=== PATIENT | male | born 1955 | race Caucasian/White ===

== ENCOUNTER 2020-02-25 13:13 | Outpatient (REF) | payer MEDICARE, MEDICAID, SELFPAY ==
[2020-02-25 14:16] LABS: MANUAL DIFF FLAG NO
[2020-02-25 14:19] LABS: Basophils Percent Auto 0.4 % (0-2); Eosinophils Absolute Auto 0.1 X10*3/uL (0.0-0.4); Eosinophils Percent Auto 1.2 % (0-4); Hematocrit 36.8 % (42-52); Hemoglobin 11.7 g/dl (14.0-18.0); Imm Gran Abs Auto 0.06 X10*3/uL (0.00-0.03); Imm Gran Pct Auto 0.9 % (0.0-0.4); Lymphocytes Absolute Auto 1.5 X10*3/uL (1.2-4.9); Lymphocytes Percent Auto 21.9 % (20-40); Mean Corpuscular HGB Conc 31.8 g/dl (31.0-36.0); Mean Corpuscular Hemoglobin 24.2 pg (27.0-33.0); Mean Platelet Volume 11.2 fL (9.4-12.4); Monocytes Absolute Auto 0.5 X10*3/uL (0.1-1.2); Monocytes Percent Auto 6.9 % (2-11); Neutrophils Absolute Auto 4.7 X10*3/uL (2.0-8.3); Neutrophils Percent Auto 68.7 % (45-73); Platelet Count 233 X10*3/uL (160-400); Red Blood Count 4.84 X10*6/uL (4.60-5.80); Red Cell Distribution Width 16.1 % (11.0-16.0); White Blood Count 6.8 X10*3/uL (4.8-10.8)
[2020-02-25 14:45] LABS: Alanine Aminotransferase 8 U/L (0-40); Albumin Level 4.6 g/dL (3.5-5.0); Alkaline Phosphatase 80 U/L (39-117); Anion Gap 15 (12-20); Aspartate Amino Transferase 14 U/L (5-37); Blood Urea Nitrogen 17 mg/dL (9-16); C Reactive Protein 3.69 mg/dL (< or = 0.50); Calcium 9.5 mg/dL (8.4-10.2); Carbon Dioxide 28 mmol/L (22-29); Chloride 104 mmol/L (96-108); Estimated Glomerular Filt Rate > 60; Glucose Random 106 mg/dL (60-115); Potassium 4.1 mmol/l (3.3-5.1); Rheumatoid Factor < 15.0 IU/mL (<15.0); Sodium 143 mmol/L (135-145); Total Protein 7.5 g/dL (6.5-8.0)
[2020-02-25 15:06] LABS: Ferritin 26 ng/mL (20-250)
[2020-02-25 16:11] LABS: Erythrocyte Sedimentation Rate 37 MM/HR (0-15)
[2020-02-26 11:17] LABS: Cyclic Citrullinated Peptide <16 UNITS
== END 2020-02-25 13:14 | disposition home or self-care (01) ==
LOC: HO.LAB 13:13
PROVIDERS: PCP Internal Medicine; Visit Provider Internal Medicine Gastroenterology
DX: K50.80 Crohn's disease of both small and large intestine without complications (principal)
CPT/HCPCS: 36415; 80053; 82728; 85025; 85652; 86140; 86200; 86431

== ENCOUNTER → 2020-03-03 08:44 | Outpatient (BNVA) | payer MEDICARE, MEDICAID, SELFPAY | PROVIDERS: PCP Internal Medicine; Referring Provider Internal Medicine; Visit Provider Internal Medicine Gastroenterology | DX: K50.80 Crohn's disease of both small and large intestine without complications (principal); M12.9 Arthropathy, unspecified; R21 Rash and other nonspecific skin eruption | CPT/HCPCS: 99213 ==

== ENCOUNTER → 2020-05-22 09:56 | Outpatient (BNVA) | payer MEDICARE, MEDICAID, SELFPAY | PROVIDERS: PCP Internal Medicine; Visit Provider Internal Medicine | DX: G47.33 Obstructive sleep apnea (adult) (pediatric) (principal); Z99.89 Dependence on other enabling machines and devices | CPT/HCPCS: 99212 ==

== ENCOUNTER → 2020-05-30 08:45 | Outpatient (BNVA) | payer MEDICARE, MEDICAID, SELFPAY | PROVIDERS: PCP Internal Medicine; Visit Provider Internal Medicine Gastroenterology | DX: K50.10 Crohn's disease of large intestine without complications (principal); M12.9 Arthropathy, unspecified | CPT/HCPCS: Q3014 ==

== ENCOUNTER → 2020-06-20 09:20 | Outpatient (REF) | payer MEDICARE, MEDICAID, SELFPAY ==
--- NOTE | 2020-06-20 09:30 | CA_ITS ---
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 The visually estimated ejection fraction is between 60-65%. - There is mildly decreased right ventricular systolic function. - The left atrium is severely dilated. - No obvious valvular pathology seen on this study. Findings Procedure Information Contrast agent, definity, is being given per protocol without apparent complications. Left Ventricle Normal left ventricular cavity size. There is moderately increased left ventricular wall thickness. The left ventricular systolic function is normal. The visually estimated ejection fraction is between 60-65%. Diastolic function is indeterminate on the basis of available data. Even with contrast use, difficult to assess wall motion. Septal wall motion abnormality in some views, possibly postoperative. Otherwise unremarkable. Right Ventricle Normal right ventricular cavity size. There is mildly decreased right ventricular systolic function. Atria The left atrium is severely dilated. The right atrium is moderately dilated. Aortic Valve The aortic valve was not well visualized. There is no aortic valve stenosis. There is no aortic valve regurgitation. Mitral Valve The mitral valve was not well visualized. The mitral valve appears normal. There is trace mitral valve regurgitation. There is no mitral valve stenosis. Pulmonic Valve The pulmonic valve was not well visualized. Tricuspid Valve There is trace tricuspid valve regurgitation. The right ventricular systolic pressure may be underestimated. The right ventricular systolic pressure is 21 mmHg. Great Vessels The aorta was not well visualized. Venous The inferior vena cava is normal in size and collapses greater than 50% with inspiration. Pericardium/Pleural There is no evidence of pericardial effusion. Prior Study Comparison No significant change compared to prior study dated: 02/02/2019. Recommendations, Care & Conclusions No obvious valvular pathology seen on this study. Measurements 2D Linear Measurements IVSd: 1.33 0.6-0.9/0.6-1.0 cm LVIDd: 5.53 3.9-5.3/4.2-5.9 cm LVIDd Index: 2.11 2.4-3.2/2.2-3.1 cm/m2 LVIDs: 3.29 2.0-3.6 cm LVPWd: 1.36 0.7-1.1 cm LA Diam: 5.00 2.7-3.8/3.0-4.0 cm LAIDs Index: 1.91 1.5-2.3 cm/m2 LV Mass: 401.75 67-162/88-224 g LV Mass Index: 153.34 43-95/49-115 g/m2 LVOT Diam: 2.50 3.0+(-)1.3 cm 2D Systolic Function EF 4C: 60.20 >55% EF 2C: 65.50 >55% EF BiP: 61.30 >55% Mitral Valve MV Pk E: 1.33 MV PK A: 0.75 MV Decel Time: 137.00 E/A: 1.80 E'Lateral: 13.40 E'Medial: 9.28 E/E' Med: 14.30 E/E' Lat: 9.90 PHT: 40.00 MVA PHT: 5.50 Decel Lamb: 9.71 Aortic Valve AoV Pk Evangelist: 1.92 AoV Mn Evangelist: 1.18 AoV VTI: 0.45 AoV Pk Grad: 15.00 Aov Mn Grad: 7.00 BALTAZAR Cont.VTI: 3.46 LVOT LVOT Pk Evangelist: 1.34 LVOT Mn Evangelist: 0.89 LVOT VTI: 0.31 LVOT Pk Grad: 7.00 LVOT Mn Grad: 4.00 LVOT Diam: 2.50 LVOT Area: 4.91 Diastolic Function MV Pk E: 1.33 MV Pk A: 0.75 E/A: 1.80 E'Medial: 9.28 E/E' Med: 14.30 E' Laterial: 13.40 E/E' Lat: 9.90 Tricuspid Valve TR Pk Evangelist: 1.79 TR Pk Grad: 13.00 RA Press: 8.00 RVSP: 21.00 Updated in Other Vendor System with Status of Final Sathya Chun MD electronically signed on 06/22/2020 2:19:42 PM with status of Final
== END ==
LOC: HO.CARD 09:20
PROVIDERS: Visit Provider Internal Medicine
DX: I50.9 Heart failure, unspecified (principal); I48.3 Typical atrial flutter; Z98.890 Other specified postprocedural states
CPT/HCPCS: 93306; Q9957

== ENCOUNTER → 2020-07-03 08:58 | Outpatient (BNVA) | payer MEDICARE, MEDICAID, SELFPAY | PROVIDERS: PCP Internal Medicine; Visit Provider Internal Medicine | DX: I50.812 Chronic right heart failure (principal); I10 Essential (primary) hypertension; G47.33 Obstructive sleep apnea (adult) (pediatric); Z99.89 Dependence on other enabling machines and devices; Z98.890 Other specified postprocedural states | CPT/HCPCS: 99212 ==

== ENCOUNTER 2020-07-24 08:27 | Outpatient (REF) | payer MEDICARE, MEDICAID, SELFPAY ==
[2020-07-24 11:06] LABS: Imm Gran Abs Auto 0.02 X10*3/uL (0.00-0.03); Imm Gran Pct Auto 0.6 % (0.0-0.4); MANUAL DIFF FLAG SCAN; Monocytes Absolute Auto 0.4 X10*3/uL (0.1-1.2); SCAN SMEAR FLAG 1
[2020-07-24 11:08] LABS: Basophils Percent Auto 0.6 % (0-2); Eosinophils Absolute Auto 0.1 X10*3/uL (0.0-0.4); Eosinophils Percent Auto 1.7 % (0-4); Hematocrit 30.4 % (42-52); Hemoglobin 9.2 g/dl (14.0-18.0); Lymphocytes Absolute Auto 1.2 X10*3/uL (1.2-4.9); Lymphocytes Percent Auto 33.3 % (20-40); Mean Corpuscular HGB Conc 30.3 g/dl (31.0-36.0); Mean Corpuscular Hemoglobin 21.6 pg (27.0-33.0); Mean Corpuscular Volume 71.4 fL (80-98); Neutrophils Absolute Auto 1.9 X10*3/uL (2.0-8.3); Neutrophils Percent Auto 52.8 % (45-73); Red Blood Count 4.26 X10*6/uL (4.60-5.80); Red Cell Distribution Width 16.3 % (11.0-16.0); White Blood Count 3.6 X10*3/uL (4.8-10.8)
[2020-07-24 11:09] LABS: PLT ABN DIST 1
[2020-07-24 11:29] LABS: Alanine Aminotransferase 10 U/L (0-40); Albumin Level 4.3 g/dL (3.5-5.0); Alkaline Phosphatase 68 U/L (39-117); Anion Gap 13 (12-20); Aspartate Amino Transferase 16 U/L (5-37); Bilirubin Total 0.6 mg/dL (0.0-1.0); Blood Urea Nitrogen 15 mg/dL (9-16); C Reactive Protein 1.19 mg/dL (< or = 0.50); Calcium 8.9 mg/dL (8.4-10.2); Carbon Dioxide 28 mmol/L (22-29); Chloride 105 mmol/L (96-108); Estimated Glomerular Filt Rate > 60; Glucose Random 121 mg/dL (60-115); Potassium 3.7 mmol/L (3.3-5.1); Sodium 142 mmol/L (135-145); Total Protein 7.3 g/dL (6.5-8.0)
[2020-07-24 11:50] LABS: Platelet Count 164 X10*3/uL (160-400)
[2020-07-24 11:54] LABS: Erythrocyte Sedimentation Rate 18 MM/HR (0-15)
[2020-07-24 12:07] LABS: SLIDE REVIEW VERIFIED
[2020-07-30 21:47] LABS: Calprotectin, Fecal 1020 mcg/g
== END 2020-07-24 08:28 | disposition home or self-care (01) ==
LOC: HO.WFDLDS 08:27
PROVIDERS: Visit Provider Internal Medicine Gastroenterology
DX: K50.10 Crohn's disease of large intestine without complications (principal); M12.9 Arthropathy, unspecified
CPT/HCPCS: 36415; 80053; 83993; 85025; 85652; 86140

== ENCOUNTER 2020-07-31 13:06 | Outpatient (REF) | payer MEDICARE, MEDICAID, SELFPAY ==
[2020-07-31 13:57] LABS: Baso%MD 0.5 %; Eos%MD 0.9 %; Hematocrit 33.1 % (42-52); Hemoglobin 9.9 g/dl (14.0-18.0); IG%MD 1.4 %; Lymph%MD 33.7 %; Mean Corpuscular HGB Conc 29.9 g/dl (31.0-36.0); Mean Corpuscular Hemoglobin 21.6 pg (27.0-33.0); Mean Corpuscular Volume 72.3 fL (80-98); Mono%MD 11.7 %; Neut%MD 51.8 %; Platelet Count 195 X10*3/uL (160-400); Red Blood Count 4.58 X10*6/uL (4.60-5.80); Red Cell Distribution Width 17.5 % (11.0-16.0); White Blood Count 4.3 X10*3/uL (4.8-10.8)
[2020-07-31 14:43] LABS: Band Neutrophils Percent 2 % (3-5); Lymphocytes Absolute Manual 1.7 X10*3/uL (0.6-4.8); Lymphocytes Percent Manual 39 % (20-40); Monocytes Absolute Manual 0.2 X10*3/uL (0.0-1.2); Monocytes Percent Manual 4 % (2-11); Neutrophils Absolute Manual 2.5 X10*3/uL (2.2-7.9); Neutrophils Percent Manual 55 % (45-73)
[2020-07-31 14:44] LABS: Hypochromasia 1+ (5-14) /OIF; Microcytosis 2+ (15-30) /OIF; RBC Morphology NOTED
[2020-07-31 14:45] LABS: Ovalocytes 1+ (5-14) /OIF; Platelet Estimate NORMAL (NORMAL); Platelet Morphology Comment NORMAL
[2020-07-31 15:06] LABS: Ferritin 16 ng/mL (20-250)
[2020-08-06 13:24] LABS: Prometheus ANSER ADA SEE SEPERATE REPORT
== END 2020-07-31 13:07 | disposition home or self-care (01) ==
LOC: HO.LAB 13:06
PROVIDERS: PCP Internal Medicine; Visit Provider Internal Medicine Gastroenterology
DX: K50.10 Crohn's disease of large intestine without complications (principal)
CPT/HCPCS: 36415; 80145; 82542; 82728; 85007; 85027

== ENCOUNTER 2020-09-03 07:39 | Outpatient (REF) | payer MEDICARE, MEDICAID, SELFPAY ==
[2020-09-03 11:48] LABS: CDIFF Ag Negative (Negative); CDIFF Internal ctrl Dots and bkg OK (V); CDiff Toxin Negative (Negative)
== END 2020-09-03 07:40 | disposition home or self-care (01) ==
LOC: HO.WFDLDS 07:39
PROVIDERS: Visit Provider Internal Medicine Gastroenterology
DX: K50.10 Crohn's disease of large intestine without complications (principal)
CPT/HCPCS: 87324; 87449

== ENCOUNTER → 2020-09-23 08:09 | Outpatient (BNVA) | payer MEDICARE, MEDICAID, SELFPAY | PROVIDERS: PCP Internal Medicine; Visit Provider Internal Medicine Gastroenterology | CPT/HCPCS: Q3014 ==

== ENCOUNTER 2020-09-24 07:31 | Outpatient (REF) | payer MEDICARE, MEDICAID, SELFPAY ==
[2020-09-24 10:52] LABS: MANUAL DIFF FLAG NO
[2020-09-24 11:05] LABS: Basophils Percent Auto 0.7 % (0-2); Eosinophils Absolute Auto 0.1 X10*3/uL (0.0-0.4); Eosinophils Percent Auto 3.2 % (0-4); Hemoglobin 10.1 g/dl (14.0-18.0); Imm Gran Abs Auto 0.08 X10*3/uL (0.00-0.03); Imm Gran Pct Auto 2.8 % (0.0-0.4); Lymphocytes Absolute Auto 1.1 X10*3/uL (1.2-4.9); Lymphocytes Percent Auto 39.2 % (20-40); Mean Corpuscular HGB Conc 30.6 g/dl (31.0-36.0); Mean Corpuscular Hemoglobin 22.4 pg (27.0-33.0); Mean Corpuscular Volume 73.3 fL (80-98); Mean Platelet Volume 11.3 fL (9.4-12.4); Monocytes Absolute Auto 0.5 X10*3/uL (0.1-1.2); Monocytes Percent Auto 16.6 % (2-11); Neutrophils Absolute Auto 1.1 X10*3/uL (2.0-8.3); Neutrophils Percent Auto 37.5 % (45-73); Platelet Count 238 X10*3/uL (160-400); Red Cell Distribution Width 18.7 % (11.0-16.0); White Blood Count 2.8 X10*3/uL (4.8-10.8)
[2020-09-24 11:23] LABS: Alanine Aminotransferase 11 U/L (0-40); Albumin Level 3.8 g/dL (3.5-5.0); Alkaline Phosphatase 66 U/L (39-117); Anion Gap 16 (12-20); Aspartate Amino Transferase 12 U/L (5-37); Bilirubin Total 0.6 mg/dL (0.0-1.0); Blood Urea Nitrogen 16 mg/dL (9-16); Carbon Dioxide 28 mmol/L (22-29); Chloride 103 mmol/L (96-108); Estimated Glomerular Filt Rate > 60; Glucose Random 104 mg/dL (60-115); Potassium 3.9 mmol/L (3.3-5.1); Sodium 143 mmol/L (135-145); Total Protein 7.2 g/dL (6.5-8.0)
[2020-09-24 11:43] LABS: Ferritin 58 ng/mL (20-250)
[2020-09-24 11:50] LABS: Erythrocyte Sedimentation Rate 69 MM/HR (0-15)
[2020-09-24 12:56] LABS: CDIFF Ag Negative (Negative); CDIFF Internal ctrl Dots and bkg OK (V); CDiff Toxin Negative (Negative)
[2020-10-02 21:36] LABS: Calprotectin, Fecal 3320 mcg/g
== END 2020-09-24 07:32 | disposition home or self-care (01) ==
LOC: HO.WFDLDS 07:31
PROVIDERS: Visit Provider Internal Medicine Gastroenterology
DX: K50.10 Crohn's disease of large intestine without complications (principal); K75.81 Nonalcoholic steatohepatitis (NASH)
CPT/HCPCS: 80053; 82728; 83993; 85025; 85652; 86140; 87324; 87449

== ENCOUNTER 2020-10-03 13:40 | Outpatient (REF) | payer MEDICARE, MEDICAID, SELFPAY ==
--- NOTE | ~2020-10-03 | CT_ITS ---
EXAMINATION: CT ENTEROGRAPHY ABDOMEN AND PELVIS WITH CONTRAST CLINICAL INFORMATION: Periumbilical pain. COMPARISON: Previous CT of the abdomen and pelvis most recent April 2019. TECHNIQUE: Study performed with oral VoLumen (1350 mL) and 480 mL of water to distend the abdomen. The patient was injected with 85 mL Omnipaque 350 intravenous contrast which was administered without adverse effect. Coronal and sagittal reformatted images were obtained at the technologist's workstation. This CT examination was performed using dose optimization techniques as appropriate, variously including the following: *Automated exposure control *Adjustment of mA and/or kV according to patient size (this includes techniques or standardized protocols for targeted exams where dose is matched to indication/reason for exam; i.e. extremities or head) *Use of iterative reconstruction technique DLP: 905 mGy-cm FINDINGS: GASTROINTESTINAL FINDINGS: Stomach: Well-distended and normal in appearance. Small intestine: Satisfactorily distended and normal in appearance. Large intestine: Well-distended and normal in appearance. No perirectal changes demonstrated. The appendix is normal. Additional findings: No abnormal enhancement of the vasa recta or significant mesenteric or retroperitoneal lymphadenopathy is seen. No abdominal abscess or fistulous tract demonstrated. ABDOMINAL AND PELVIC CT FINDINGS: Liver, gallbladder, biliary tract: Normal. Pancreas: Normal. Spleen: The spleen is slightly enlarged measuring 15 cm in length. This is similar to previous exam. There are small peripheral calcifications in the spleen that are stable. Adrenal glands and kidneys: There is a 2 x 3 cm low-attenuation left adrenal lesion that is stable and probably represents a benign adenoma. The right adrenal gland is normal. There are bilateral renal cysts measuring 1 x 2 cm in the lower pole of the right kidney and 4.8 x 6.5 cm in the lower pole of the left kidney. Ureters and bladder: Normal. Lymphovascular structures: There is shotty small bowel mesentery lymphadenopathy and fat stranding that is stable. Largest small bowel mesentery lymph node measures 1 cm. There are 2 adjacent left ventral or incisional hernias containing fat. There are postsurgical changes to the abdominal wall. Bones: There is degenerative disc disease at L5-S1. Lung bases: The lung bases are clear. The heart is enlarged. CT/CT enterography IMPRESSION: Two adjacent left ventral or incisional hernias containing fat. Stable low-attenuation left adrenal nodule probably representing a benign adenoma. Stable renal cysts. Stable shotty small bowel mesentery lymphadenopathy and fat stranding.
[2020-10-03] MEDS: iohexoL 350 MG/ML 100 ML INFUS..BTL IV (16:07)
== END 2020-10-03 13:41 | disposition home or self-care (01) ==
LOC: HO.US 13:40
PROVIDERS: Visit Provider Internal Medicine Gastroenterology
DX: R10.33 Periumbilical pain (principal); K50.10 Crohn's disease of large intestine without complications
CPT/HCPCS: 74177; Q9967

== ENCOUNTER 2020-10-06 13:31 | Outpatient (REF) | payer MEDICARE, MEDICAID, SELFPAY ==
[2020-10-09 18:11] LABS: TS Negative Control Passed; TS Panel A 0; TS Panel B 0; TS Positive Control Passed; TSpotTB Negative (SeeBelow)
== END 2020-10-06 13:32 | disposition home or self-care (01) ==
LOC: HO.MDS 13:31
PROVIDERS: PCP Internal Medicine; Visit Provider Internal Medicine Gastroenterology
DX: K50.10 Crohn's disease of large intestine without complications (principal)
CPT/HCPCS: 36415; 86481; 96365; J3380

== ENCOUNTER 2020-10-21 10:37 | Outpatient (REF) | payer MEDICARE, MEDICAID, SELFPAY | END 2020-10-21 10:38 | disposition home or self-care (01) | LOC: HO.MDS 10:37 | PROVIDERS: PCP Internal Medicine; Visit Provider Internal Medicine Gastroenterology | DX: K50.10 Crohn's disease of large intestine without complications (principal) | CPT/HCPCS: 96365; J3380 ==

== ENCOUNTER 2020-10-22 07:34 | Outpatient (REF) | payer MEDICARE, MEDICAID, SELFPAY ==
[2020-10-22 11:14] LABS: Iron 26 mcg/dL (45-160); Percent Iron Saturation 10 % (15-50); Total Iron Binding Capacity 273 mcg/dL (228-428); Unsaturated Iron Binding 247 ug/dL
[2020-10-28 23:46] LABS: Calprotectin, Fecal 5060 mcg/g
== END 2020-10-22 07:35 | disposition home or self-care (01) ==
LOC: HO.WFDLDS 07:34
PROVIDERS: PCP Internal Medicine; Visit Provider Internal Medicine Gastroenterology
DX: K50.10 Crohn's disease of large intestine without complications (principal)
CPT/HCPCS: 36415; 83540; 83993

== ENCOUNTER 2020-10-22 07:52 | Outpatient (REF) | payer MEDICARE, MEDICAID, SELFPAY | END 2020-10-22 07:53 | disposition home or self-care (01) | LOC: HO.WFDLDS 07:52 | PROVIDERS: Visit Provider Internal Medicine Gastroenterology | DX: Z13.89 Encounter for screening for other disorder (principal) ==

== ENCOUNTER → 2020-11-04 08:23 | Outpatient (BNVA) | payer MEDICARE, MEDICAID, SELFPAY | PROVIDERS: PCP Internal Medicine; Visit Provider Internal Medicine Gastroenterology | CPT/HCPCS: Q3014 ==

== ENCOUNTER 2020-11-18 08:48 | Outpatient (REF) | payer MEDICARE, MEDICAID, SELFPAY | END 2020-11-18 08:49 | disposition home or self-care (01) | LOC: HO.MDS 08:48 | PROVIDERS: PCP Internal Medicine; Visit Provider Internal Medicine Gastroenterology | DX: K50.80 Crohn's disease of both small and large intestine without complications (principal) | CPT/HCPCS: 96365; J3380 ==

== ENCOUNTER → 2020-11-27 09:03 | Outpatient (BNVA) | payer MEDICARE, MEDICAID, SELFPAY | PROVIDERS: PCP Internal Medicine; Visit Provider Internal Medicine | DX: G47.33 Obstructive sleep apnea (adult) (pediatric) (principal); E66.01 Morbid (severe) obesity due to excess calories; Z99.89 Dependence on other enabling machines and devices | CPT/HCPCS: 99212 ==

== ENCOUNTER 2020-12-10 11:08 | Outpatient (REF) | payer MEDICARE, MEDICAID, SELFPAY ==
--- NOTE | ~2020-12-10 | XR_ITS ---
EXAMINATION: XR CERVICAL SPINE CLINICAL INFORMATION: Cervicalgia. COMPARISON: None TECHNIQUE: 4 views of the cervical spine. FINDINGS: No abnormal prevertebral soft tissue swelling is seen. There is loss of the normal cervical spine lordosis. No acute fracture evident. There is disc space narrowing with prominent spurring seen at the C4-C5 level. There is some mild narrowing at the C5-C6 and C6-C7 levels of the disc spaces. XR/XR cervical spine 3V IMPRESSION: No acute cervical spine fracture. Cervical spondylosis C4 through C7 as described.
== END 2020-12-10 11:09 | disposition home or self-care (01) ==
LOC: HO.HMGCX 11:08
PROVIDERS: PCP Internal Medicine; Visit Provider Physician Assistant
DX: M54.2 Cervicalgia (principal)
CPT/HCPCS: 72040

== ENCOUNTER 2020-12-16 09:52 | Outpatient (REF) | payer MEDICARE, MEDICAID, SELFPAY ==
--- NOTE | ~2020-12-16 | XR_ITS ---
EXAMINATION: XR FOOT, BILATERAL XR HAND, BILATERAL CLINICAL INFORMATION: Crohn's disease. COMPARISON: Bilateral feet of 12/29/2007. TECHNIQUE: 3 views of each foot and 3 views of each hand. FINDINGS: Views of the left foot do not demonstrate any evidence of acute fracture or dislocation. Joint spaces are maintained. Calcaneal spurs at sites of insertion of plantar and Achilles tendons noted. There is some mild degenerative change of the tarsal and tarsometatarsal joints without joint space narrowing. There appear to be subchondral cysts or para-articular erosions about the head of the 1st proximal phalanx. This is slightly more prominent than on prior study but without large change. There are some subchondral cysts or erosions seen about the head of the 1st metatarsal which is unchanged. Vascular calcifications are present. Some soft tissue prominence over the dorsum of the foot. Views of the right foot do not demonstrate any evidence of acute fracture or dislocation. There is stable appearance base of the right 1st distal phalanx which may be related to previous trauma or possible exostosis. There is a plantar calcaneal spur. No new erosive changes identified. Views of the left hand demonstrate metallic foreign body about the radial aspect of the 4th distal phalanx. No gas within the soft tissues identified. No acute fracture or dislocation evident. Joint spaces are maintained. There is some mild spurring at the 1st carpometacarpal joint. There is an erosion about the radial aspect base of the 2nd proximal phalanx. Otherwise no significant joint space narrowing or significant degenerative spurring seen. Views of the right hand demonstrate radiopaque foreign body overlying the dorsal aspect of the distal portion of the proximal phalanx. There is mild spurring at the 1st carpometacarpal joint. There is some soft tissue swelling seen about the dorsum of the metacarpophalangeal joint as well as wrist. XR/XR hand RT min 3V IMPRESSION: Mild degenerative changes as described above. Radiopaque foreign bodies about the right and left hands.
--- NOTE | ~2020-12-16 | XR_ITS ---
EXAMINATION: XR CHEST CLINICAL INFORMATION: Crohn's disease large bowel without complication. COMPARISON: Chest radiographs 04/17/2014, CT enterography 10/03/2020. TECHNIQUE: 2 views of the chest were obtained. FINDINGS: There has been prior median sternotomy. Enlarged cardiopericardial silhouette is stable. The vascularity is normal. There is fine linear scar left lateral base similar to prior studies. There is no vascular congestion, airspace consolidation, or effusion. The costophrenic sulci are clear. The hilar and mediastinal contours are unremarkable. No visible acute bony abnormality. XR/XR chest 2V IMPRESSION: No acute intrathoracic disease.
[2020-12-16 12:16] LABS: MANUAL DIFF FLAG NO
[2020-12-16 12:22] LABS: Basophils Percent Auto 0.4 % (0-2); Eosinophils Percent Auto 0.5 % (0-4); Hematocrit 31.8 % (42-52); Hemoglobin 10.1 g/dl (14.0-18.0); Imm Gran Abs Auto 0.05 X10*3/uL (0.00-0.03); Imm Gran Pct Auto 0.6 % (0.0-0.4); Lymphocytes Absolute Auto 1.5 X10*3/uL (1.2-4.9); Lymphocytes Percent Auto 18.2 % (20-40); Mean Corpuscular HGB Conc 31.8 g/dl (31.0-36.0); Mean Corpuscular Hemoglobin 24.1 pg (27.0-33.0); Mean Corpuscular Volume 75.9 fL (80-98); Mean Platelet Volume 10.8 fL (9.4-12.4); Monocytes Absolute Auto 0.7 X10*3/uL (0.1-1.2); Monocytes Percent Auto 8.6 % (2-11); Neutrophils Percent Auto 71.7 % (45-73); Platelet Count 210 X10*3/uL (160-400); Red Blood Count 4.19 X10*6/uL (4.60-5.80); Red Cell Distribution Width 18.2 % (11.0-16.0); White Blood Count 8.4 X10*3/uL (4.8-10.8)
[2020-12-16 12:36] LABS: Alanine Aminotransferase 6 U/L (0-40); Albumin Level 4.2 g/dL (3.5-5.0); Alkaline Phosphatase 86 U/L (39-117); Anion Gap 18 (12-20); Aspartate Amino Transferase 14 U/L (5-37); Bilirubin Total 1.7 mg/dL (0.0-1.0); Blood Urea Nitrogen 14 mg/dL (9-16); C Reactive Protein 8.69 mg/dL (< or = 0.50); Calcium 9.5 mg/dL (8.4-10.2); Carbon Dioxide 25 mmol/L (22-29); Chloride 100 mmol/L (96-108); Estimated Glomerular Filt Rate > 60; Glucose Random 96 mg/dL (60-115); Potassium 3.8 mmol/L (3.3-5.1); Rheumatoid Factor < 15.0 IU/mL (<15.0); Sodium 139 mmol/L (135-145); Total Protein 7.5 g/dL (6.5-8.0)
[2020-12-16 12:59] LABS: Erythrocyte Sedimentation Rate 66 MM/HR (0-15)
[2020-12-18 23:52] LABS: Cyclic Citrullinated Peptide <16 UNITS
== END 2020-12-16 09:53 | disposition home or self-care (01) ==
LOC: HO.LAB 09:52
PROVIDERS: PCP Internal Medicine; Visit Provider Student in an Organized Health Care Education/Training Program
DX: K50.10 Crohn's disease of large intestine without complications (principal); M12.9 Arthropathy, unspecified; M79.671 Pain in right foot; M79.672 Pain in left foot; M79.641 Pain in right hand; M79.642 Pain in left hand; G47.33 Obstructive sleep apnea (adult) (pediatric); Z99.89 Dependence on other enabling machines and devices
CPT/HCPCS: 36415; 71046; 73130; 73620; 80053; 85025; 85652; 86140; 86200; 86431; 99202

== ENCOUNTER → 2020-12-25 08:05 | Outpatient (BNVA) | payer MEDICARE, MEDICAID, SELFPAY | PROVIDERS: PCP Internal Medicine; Visit Provider Internal Medicine | DX: I50.812 Chronic right heart failure (principal); I10 Essential (primary) hypertension; I48.19 Other persistent atrial fibrillation; G47.33 Obstructive sleep apnea (adult) (pediatric); Z99.89 Dependence on other enabling machines and devices; Z98.890 Other specified postprocedural states | CPT/HCPCS: 93005; 99212 ==

== ENCOUNTER → 2020-12-26 14:52 | Outpatient (REF) | payer MEDICARE, MEDICAID, SELFPAY ==
--- NOTE | 2020-12-26 14:55 | HM_ITS ---
Total monitoring time 3 days and 16 hours. Underlying rhythm is atrial fibrillation. Minimum heart rate 38/Min; maximum 116/Min; average 47/Min. About 76% of the time, rate was less than 60/Min. No significant tachycardia. No pauses or AV blocks. Frequent premature ventricular contractions at a burden of 3%. 2 morphologies. 288 couplets. No patient events. MTDD
== END ==
LOC: HO.CARD 14:52
PROVIDERS: Visit Provider Internal Medicine
DX: I48.19 Other persistent atrial fibrillation (principal)
CPT/HCPCS: 93225; 93242

== ENCOUNTER → 2020-12-30 09:16 | Outpatient (BNVA) | payer MEDICARE, MEDICAID, SELFPAY | PROVIDERS: PCP Internal Medicine; Visit Provider Student in an Organized Health Care Education/Training Program | DX: M12.9 Arthropathy, unspecified (principal); K50.10 Crohn's disease of large intestine without complications | CPT/HCPCS: 99212 ==

== ENCOUNTER 2021-01-02 07:38 | Outpatient (REF) | payer MEDICARE, MEDICAID, SELFPAY ==
[2021-01-02 11:38] LABS: MANUAL DIFF FLAG NO
[2021-01-02 11:49] LABS: Basophils Percent Auto 0.3 % (0-2); Eosinophils Percent Auto 0.7 % (0-4); Hematocrit 32.6 % (42-52); Hemoglobin 10.3 g/dl (14.0-18.0); Imm Gran Abs Auto 0.04 X10*3/uL (0.00-0.03); Imm Gran Pct Auto 0.7 % (0.0-0.4); Lymphocytes Absolute Auto 1.6 X10*3/uL (1.2-4.9); Lymphocytes Percent Auto 26.2 % (20-40); Mean Corpuscular HGB Conc 31.6 g/dl (31.0-36.0); Mean Corpuscular Hemoglobin 24.5 pg (27.0-33.0); Mean Corpuscular Volume 77.4 fL (80-98); Mean Platelet Volume 11.6 fL (9.4-12.4); Monocytes Absolute Auto 0.5 X10*3/uL (0.1-1.2); Monocytes Percent Auto 7.5 % (2-11); Neutrophils Percent Auto 64.6 % (45-73); Platelet Count 215 X10*3/uL (160-400); Red Blood Count 4.21 X10*6/uL (4.60-5.80); Red Cell Distribution Width 17.9 % (11.0-16.0); White Blood Count 6.2 X10*3/uL (4.8-10.8)
[2021-01-02 12:27] LABS: Alanine Aminotransferase 8 U/L (0-40); Albumin Level 4.2 g/dL (3.5-5.0); Alkaline Phosphatase 62 U/L (39-117); Anion Gap 15 (12-20); Aspartate Amino Transferase 13 U/L (5-37); Bilirubin Total 0.6 mg/dL (0.0-1.0); Blood Urea Nitrogen 12 mg/dL (9-16); C Reactive Protein 4.35 mg/dL (< or = 0.50); Calcium 9.5 mg/dL (8.4-10.2); Carbon Dioxide 26 mmol/L (22-29); Chloride 105 mmol/L (96-108); Estimated Glomerular Filt Rate > 60; Glucose Random 110 mg/dL (60-115); Potassium 3.9 mmol/L (3.3-5.1); Sodium 142 mmol/L (135-145); Total Protein 7.1 g/dL (6.5-8.0)
[2021-01-02 13:20] LABS: Erythrocyte Sedimentation Rate 33 MM/HR (0-15)
[2021-01-07 22:05] LABS: Calprotectin, Fecal 492 mcg/g
== END 2021-01-02 07:39 | disposition home or self-care (01) ==
LOC: HO.WFDLDS 07:38
PROVIDERS: PCP Internal Medicine; Visit Provider Internal Medicine Gastroenterology
DX: K50.10 Crohn's disease of large intestine without complications (principal); K75.81 Nonalcoholic steatohepatitis (NASH)
CPT/HCPCS: 36415; 80053; 83993; 85025; 85652; 86140

== ENCOUNTER 2021-01-13 08:51 | Outpatient (REF) | payer MEDICARE, MEDICAID, SELFPAY | END 2021-01-13 08:52 | disposition home or self-care (01) | LOC: HO.MDS 08:51 | PROVIDERS: PCP Internal Medicine; Visit Provider Internal Medicine Gastroenterology | DX: K50.80 Crohn's disease of both small and large intestine without complications (principal) | CPT/HCPCS: 96365; J3380 ==

== ENCOUNTER → 2021-01-26 09:13 | Outpatient (BNVA) | payer MEDICARE, MEDICAID, SELFPAY | PROVIDERS: PCP Internal Medicine; Visit Provider Internal Medicine Gastroenterology | CPT/HCPCS: Q3014 ==

== ENCOUNTER 2021-02-20 08:41 | Outpatient (REF) | payer MEDICARE, MEDICAID, SELFPAY ==
[2021-02-20 09:02] LABS: MANUAL DIFF FLAG NO
[2021-02-20 09:58] LABS: Hematocrit 33.3 % (42-52); Hemoglobin 10.6 g/dl (14.0-18.0); Mean Corpuscular HGB Conc 31.8 g/dl (31.0-36.0); Mean Corpuscular Hemoglobin 24.3 pg (27.0-33.0); Mean Corpuscular Volume 76.2 fL (80-98); Red Blood Count 4.37 X10*6/uL (4.60-5.80); White Blood Count 6.4 X10*3/uL (4.8-10.8)
[2021-02-20 09:59] LABS: Basophils Percent Auto 0.5 % (0-2); Eosinophils Absolute Auto 0.1 X10*3/uL (0.0-0.4); Eosinophils Percent Auto 1.2 % (0-4); Imm Gran Abs Auto 0.04 X10*3/uL (0.00-0.03); Imm Gran Pct Auto 0.6 % (0.0-0.4); Lymphocytes Absolute Auto 1.3 X10*3/uL (1.2-4.9); Lymphocytes Percent Auto 20.5 % (20-40); Mean Platelet Volume 10.9 fL (9.4-12.4); Monocytes Absolute Auto 0.4 X10*3/uL (0.1-1.2); Monocytes Percent Auto 6.7 % (2-11); Neutrophils Absolute Auto 4.5 X10*3/uL (2.0-8.3); Neutrophils Percent Auto 70.5 % (45-73); Platelet Count 249 X10*3/uL (160-400)
[2021-02-20 10:30] LABS: Alanine Aminotransferase 11 U/L (0-40); Albumin Level 4.2 g/dL (3.5-5.0); Alkaline Phosphatase 73 U/L (39-117); Anion Gap 13 (12-20); Aspartate Amino Transferase 18 U/L (5-37); Bilirubin Total 0.7 mg/dL (0.0-1.0); Blood Urea Nitrogen 17 mg/dL (9-16); C Reactive Protein 6.06 mg/dL (< or = 0.50); Calcium 9.6 mg/dL (8.4-10.2); Carbon Dioxide 27 mmol/L (22-29); Chloride 107 mmol/L (96-108); Estimated Glomerular Filt Rate > 60; Glucose Random 138 mg/dL (60-115); Iron 26 mcg/dL (45-160); Percent Iron Saturation 9 % (15-50); Potassium 3.9 mmol/L (3.3-5.1); Sodium 143 mmol/L (135-145); Total Iron Binding Capacity 296 mcg/dL (228-428); Total Protein 7.5 g/dL (6.5-8.0); Unsaturated Iron Binding 270 ug/dL
[2021-02-20 10:38] LABS: Ferritin 68 ng/mL (20-250); Vitamin D 25-OH Total 35.7 ng/mL (>30)
[2021-02-20 10:56] LABS: Folate 15.1 ng/mL (> or = 4.0); Vitamin B12 226 pg/mL (200-900)
[2021-02-25 06:21] LABS: Zinc 63 mcg/dL (60-130)
[2021-02-27 02:47] LABS: Calprotectin, Fecal 101 mcg/g
== END 2021-02-20 08:42 | disposition home or self-care (01) ==
LOC: HO.LAB 08:41
PROVIDERS: PCP Internal Medicine; Visit Provider Internal Medicine Gastroenterology
DX: M12.9 Arthropathy, unspecified (principal); K50.10 Crohn's disease of large intestine without complications; K75.81 Nonalcoholic steatohepatitis (NASH)
CPT/HCPCS: 36415; 80053; 82306; 82607; 82728; 82746; 83540; 83993; 84630; 85025; 86140

== ENCOUNTER → 2021-02-25 14:35 | Outpatient (BNVA) | payer MEDICARE, MEDICAID, SELFPAY | PROVIDERS: PCP Internal Medicine; Visit Provider Surgery ==

== ENCOUNTER 2021-03-10 08:41 | Outpatient (REF) | payer MEDICARE, MEDICAID, SELFPAY | END 2021-03-10 08:42 | disposition home or self-care (01) | LOC: HO.MDS 08:41 | PROVIDERS: PCP Internal Medicine; Visit Provider Internal Medicine Gastroenterology | DX: K50.10 Crohn's disease of large intestine without complications (principal) | CPT/HCPCS: 96365; J3380 ==

== ENCOUNTER → 2021-03-11 15:38 | Outpatient (BNVA) | payer MEDICARE, MEDICAID, SELFPAY | PROVIDERS: PCP Internal Medicine; Visit Provider Surgery | DX: L72.0 Epidermal cyst (principal); I11.0 Hypertensive heart disease with heart failure; I50.812 Chronic right heart failure; E66.01 Morbid (severe) obesity due to excess calories; G47.33 Obstructive sleep apnea (adult) (pediatric); Z68.41 Body mass index [BMI] 40.0-44.9, adult; Z87.891 Personal history of nicotine dependence; Z98.890 Other specified postprocedural states; Z99.89 Dependence on other enabling machines and devices; Z79.52 Long term (current) use of systemic steroids; Z79.899 Other long term (current) drug therapy | CPT/HCPCS: 99202 ==

== ENCOUNTER 2021-03-16 13:51 | Outpatient (REF) | payer MEDICARE, MEDICAID, SELFPAY ==
--- NOTE | ~2021-03-16 | XR_ITS ---
EXAMINATION: XR LUMBOSACRAL SPINE CLINICAL INFORMATION: Low back pain. COMPARISON: CT abdomen study of 04/27/2019. TECHNIQUE: 3 views of the lumbosacral spine. FINDINGS: There are 5 non-rib bearing lumbar vertebrae. There is severe narrowing of the L5-S1 disc space with marginal sclerosis and facet arthropathy. Pedicles appear intact. No acute fracture, spondylolisthesis, or spondylolysis is appreciated. No evidence of fusion or widening of the sacroiliac joints. There is anterior bridging of the T11 and T12 vertebral bodies. XR/XR lumbar spine 2-3V IMPRESSION: Lumbar spondylosis L5-S1. No acute fracture, spondylolisthesis, or spondylolysis identified.
== END 2021-03-16 13:52 | disposition home or self-care (01) ==
LOC: HO.XRAY 13:51
PROVIDERS: PCP Internal Medicine; Visit Provider Physician Assistant
DX: M54.59 Other low back pain (principal)
CPT/HCPCS: 72100

== ENCOUNTER 2021-03-27 13:01 | Outpatient (REF) | payer MEDICARE, MEDICAID, SELFPAY ==
[2021-03-27 12:51] VITALS: BMI 46.5
[2021-03-27 12:54] VITALS: BP 164/44; PULSE 79; RESP 16; TEMP 37.7; O2SAT 97
[2021-03-27 13:37] VITALS: BP 152/58; PULSE 70; RESP 18; O2SAT 98
--- NOTE | 2021-03-27 13:37 | W.PM.OPN ---
Operative Note Operative Note Date of Service: 03/27/21 Narrative: Preop diagnosis: Epidermal cyst, posterior neck Postop diagnosis: Epidermal cyst, posterior neck Procedure: Excision of epidermal cyst, posterior neck under local anesthesia Surgeon: Cesar Hatch MD Patient is a 65-year-old male with a cystic induration of the posterior neck measuring about 1.5 cm. He understood the technique of excision under local anesthesia. He was aware of the risks, benefits, and alternatives Was brought to the minor procedure room. He was placed in the sitting position with the neck if flexed forward to expose the area of the cyst. The area of the cyst was prepped and draped in the usual sterile fashion. Lidocaine 1% was used for local anesthesia. I made an elliptical incision around the cystic induration using a blade 15 and this was carried down through the full-thickness of the skin and subcutaneous fat to excise this entire cystic induration. This was dissected posteriorly at the with delivered. I closed the incision with full-thickness nylon 3-0 interrupted sutures. Dressings were applied The patient tolerated procedure well. There were no complication noted. He was given wound care instructions and will be seen in the office for removal sutures.
== END 2021-03-27 13:02 | disposition home or self-care (01) ==
LOC: HO.MS 13:01
PROVIDERS: PCP Internal Medicine; Visit Provider Surgery
PROC: (CPT 11422; principal; 2021-03-27 13:00)
DX: L72.0 Epidermal cyst (principal); I11.0 Hypertensive heart disease with heart failure; I50.89 Other heart failure; Z79.01 Long term (current) use of anticoagulants; E66.01 Morbid (severe) obesity due to excess calories; Z68.41 Body mass index [BMI] 40.0-44.9, adult; Z79.899 Other long term (current) drug therapy; Z87.891 Personal history of nicotine dependence
CPT/HCPCS: 11422; 88304

== ENCOUNTER → 2021-04-01 08:53 | Outpatient (BNVA) | payer MEDICARE, MEDICAID, SELFPAY | PROVIDERS: PCP Internal Medicine; Visit Provider Internal Medicine Gastroenterology ==

== ENCOUNTER → 2021-04-08 12:28 | Outpatient (BNVA) | payer MEDICARE, MEDICAID, SELFPAY | PROVIDERS: PCP Internal Medicine; Visit Provider Surgery | DX: Z48.817 Encounter for surgical aftercare following surgery on the skin and subcutaneous tissue (principal); Z87.2 Personal history of diseases of the skin and subcutaneous tissue | CPT/HCPCS: 99212 ==

== ENCOUNTER → 2021-05-01 08:28 | Outpatient (BNVA) | payer MEDICARE, MEDICAID, SELFPAY | PROVIDERS: PCP Internal Medicine; Visit Provider Internal Medicine Gastroenterology | DX: M12.9 Arthropathy, unspecified (principal); K50.10 Crohn's disease of large intestine without complications | CPT/HCPCS: Q3014 ==

== ENCOUNTER 2021-05-04 10:34 | Outpatient (REF) | payer MEDICARE, MEDICAID, SELFPAY ==
[2021-05-04 14:01] LABS: MANUAL DIFF FLAG NO
[2021-05-04 14:07] LABS: Basophils Percent Auto 0.7 % (0-2); Eosinophils Percent Auto 0.9 % (0-4); Hematocrit 30.6 % (42.0-52.0); Hemoglobin 9.9 g/dl (14.0-18.0); Imm Gran Abs Auto 0.03 X10*3/uL (0.00-0.03); Imm Gran Pct Auto 0.7 % (0.0-0.4); Lymphocytes Absolute Auto 0.9 X10*3/uL (1.2-4.9); Lymphocytes Percent Auto 19.9 % (20-40); Mean Corpuscular HGB Conc 32.4 g/dl (31.0-36.0); Mean Corpuscular Hemoglobin 25.9 pg (27.0-33.0); Mean Corpuscular Volume 80.1 fL (80.0-98.0); Monocytes Absolute Auto 0.5 X10*3/uL (0.1-1.2); Monocytes Percent Auto 10.6 % (2-11); Neutrophils Absolute Auto 2.9 x10*3/uL (2.0-8.3); Neutrophils Percent Auto 67.2 % (45-73); Platelet Count 193 X10*3/uL (160-400); Red Blood Count 3.82 X10*6/uL (4.60-5.80); Red Cell Distribution Width 19.9 % (11.0-16.0); White Blood Count 4.3 X10*3/uL (4.8-10.8)
[2021-05-04 14:55] LABS: Alanine Aminotransferase 9 U/L (0-40); Albumin Level 4.2 g/dL (3.5-5.0); Alkaline Phosphatase 73 U/L (39-117); Anion Gap 13 (12-20); Aspartate Amino Transferase 15 U/L (5-37); Bilirubin Total 0.9 mg/dL (0.0-1.0); Blood Urea Nitrogen 18 mg/dL (9-16); Calcium 9.1 mg/dL (8.4-10.2); Carbon Dioxide 27 mmol/L (22-29); Chloride 105 mmol/L (96-108); Estimated Glomerular Filt Rate > 60; Glucose Random 140 mg/dL (60-115); Potassium 3.7 mmol/L (3.3-5.1); Sodium 141 mmol/L (135-145); Total Protein 6.8 g/dL (6.5-8.0)
[2021-05-04 15:00] LABS: Ferritin 60 ng/mL (20-250)
== END 2021-05-04 10:35 | disposition home or self-care (01) ==
LOC: HO.WFDLDS 10:34
PROVIDERS: Visit Provider Internal Medicine Gastroenterology
DX: K50.10 Crohn's disease of large intestine without complications (principal); M12.9 Arthropathy, unspecified; K75.81 Nonalcoholic steatohepatitis (NASH)
CPT/HCPCS: 36415; 80053; 82728; 85025; 86140

== ENCOUNTER 2021-05-05 09:10 | Outpatient (REF) | payer MEDICARE, MEDICAID, SELFPAY | END 2021-05-05 09:11 | disposition home or self-care (01) | LOC: HO.MDS 09:10 | PROVIDERS: PCP Internal Medicine; Visit Provider Internal Medicine Gastroenterology | DX: K50.10 Crohn's disease of large intestine without complications (principal) | CPT/HCPCS: 96365; J3380 ==

== ENCOUNTER → 2021-06-01 09:24 | Outpatient (BNVA) | payer MEDICARE, MEDICAID, SELFPAY | PROVIDERS: PCP Internal Medicine; Visit Provider Internal Medicine | DX: G47.33 Obstructive sleep apnea (adult) (pediatric) (principal); E66.01 Morbid (severe) obesity due to excess calories; Z99.89 Dependence on other enabling machines and devices; Z68.42 Body mass index [BMI] 45.0-49.9, adult | CPT/HCPCS: Q3014 ==

== ENCOUNTER 2021-06-04 11:00 | Outpatient (RCR) | payer MEDICARE, MEDICAID, SELFPAY | END 2021-11-27 13:29 | disposition home or self-care (01) | LOC: HO.PTWFD 11:00 | PROVIDERS: PCP Internal Medicine; Visit Provider Physician Assistant | DX: M54.50 Low back pain, unspecified (principal); M54.2 Cervicalgia | CPT/HCPCS: 97014; 97035; 97110; 97140; 97161; 97163; 97530; 97535 ==

== ENCOUNTER 2021-06-30 08:50 | Outpatient (REF) | payer MEDICARE, MEDICAID, SELFPAY | END 2021-06-30 08:51 | disposition home or self-care (01) | LOC: HO.MDS 08:50 | PROVIDERS: Visit Provider Internal Medicine Gastroenterology | DX: K50.10 Crohn's disease of large intestine without complications (principal) | CPT/HCPCS: 96365; J3380 ==

== ENCOUNTER → 2021-07-14 09:01 | Outpatient (BNVA) | payer MEDICARE, MEDICAID, SELFPAY | PROVIDERS: PCP Internal Medicine; Visit Provider Internal Medicine | DX: I48.19 Other persistent atrial fibrillation (principal); I11.0 Hypertensive heart disease with heart failure; I50.812 Chronic right heart failure; G47.33 Obstructive sleep apnea (adult) (pediatric); Z79.01 Long term (current) use of anticoagulants; Z87.798 Personal history of other (corrected) congenital malformations; Z99.89 Dependence on other enabling machines and devices | CPT/HCPCS: 99212 ==

== ENCOUNTER 2021-07-23 07:33 | Outpatient (REF) | payer MEDICARE, MEDICAID, SELFPAY ==
[2021-07-23 12:08] LABS: Anion Gap 14 (12-20); Blood Urea Nitrogen 20 mg/dL (9-16); Carbon Dioxide 27 mmol/L (22-29); Chloride 104 mmol/L (96-108); Estimated Glomerular Filt Rate > 60; Glucose Random 115 mg/dL (60-115); Potassium 4.2 mmol/L (3.3-5.1); Sodium 141 mmol/L (135-145)
== END 2021-07-23 07:34 | disposition home or self-care (01) ==
LOC: HO.WFDLDS 07:33
PROVIDERS: PCP Internal Medicine; Visit Provider Internal Medicine
DX: I10 Essential (primary) hypertension (principal)
CPT/HCPCS: 36415; 80048

== ENCOUNTER → 2021-07-31 09:39 | Outpatient (BNVA) | payer MEDICARE, MEDICAID, SELFPAY | PROVIDERS: PCP Internal Medicine; Visit Provider Internal Medicine Gastroenterology | DX: K50.10 Crohn's disease of large intestine without complications (principal); M12.9 Arthropathy, unspecified | CPT/HCPCS: 99212 ==

== ENCOUNTER 2021-08-17 10:34 | Outpatient (REF) | payer MEDICARE, MEDICAID, SELFPAY ==
--- NOTE | 2021-08-17 12:34 | MHC.AU.MED ---
Medical Clearance for Hearing Instrumentation Date: 08/17/21 Patient Name: Hector Colon Date of : 1955 Referring Provider: Garry Graves MD We have seen your patient on 08/17/21 and have determined that they are a candidate for amplification (See accompanying report). Specifically, they would benefit from: Hearing aid use in both ears There is a statute that addresses Medical Evaluation Requirements prior to fitting a patient with a hearing aid. According to [place] statute [facility] CMR:6.03(1), (a) General. Except as provided in 265 CMR 6.03(1)(b), a clinical advisor shall not sell a hearing aid unless the prospective user has presented to the clinical advisor a written statement signed by a licensed physician that states that the patient's hearing loss has been medically evaluated and the patient may be considered a candidate for a hearing aid. The medical evaluation must have taken place within the preceding six months. Please note: Due to the [place] Statute referenced above, we cannot accept a signature other than that of a licensed physician. BUSINESS DIRECTOR and PA signatures cannot be accepted. I am in agreement with the above recommendation. There is no medical contraindication for hearing instrumentation. Physician Signature Date Physician Name (Printed)
--- NOTE | 2021-08-17 12:35 | MHC.AU.ANO ---
Adult Audiological Evaluation Date of Visit: 08/17/21 Reason for Appointment: Patient has been experiencing gradually increasing hearing difficulty. He reports difficulty hearing his at home, as well as difficulty hearing in the television and hearing in groups/noise. 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 He has been told from hearing screenings in the past that he has trouble hearing high frequencies. 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 History: No Medical History: Medical History: AFib, Hypertension, Crohn's Disease, Arthritis Medication List: Furosemide (can potentially be ototoxic), Amlodipine Besylate, Eliquis, Pantoprazole, Methotrexate, Folic Acid, Vedolizumab, Losartan Vitamin D3, Turmeric, Iron, Centrum Silver Otoscopy: Right Ear: Unremarkable Left Ear: Unremarkable Tympanometry: Tympanometry performed due to: To assess integrity of the middle ear system Right Ear: Normal Middle Ear System (Type A) Left Ear: Normal Middle Ear System (Type A) Hearing Evaluation: Transducer(s) Used: Insert Earphones Method: Conventional Audiometry Stimuli Used: Pure Tones Right Ear: Description of Hearing: Mild to severe sensorineural hearing loss Left Ear: Description of Hearing: Mild to severe sensorineural hearing loss Speech Recognition Threshold (SRT): Method Used: Recorded Lists Stimuli Used: Spondee Words Right Ear: 40 dBHL Left Ear: 40 dBHL Word Discrimination: Method: Recorded Lists Word Lists Used: W-22 Right Ear: 80% at 75 dBHL Left Ear: 72% at 70 dBHL Most Comfortable Level (MCL): Right Ear: 75 dBHL Left Ear: 70 dBHL Recommendations: Audiological re-evaluation in one year. Trial with amplification is recommended. Medical clearance from a physician is required before fitting. See Hearing Aid Evaluation report for more information. Diagnosis: Primary Diagnosis: H90.3 Bilateral Sensorineural Hearing Loss Signature: Provider: César Lorenz, DORIS-A
--- NOTE | 2021-08-17 12:36 | MHC.AU.HAS ---
Hearing Aid Evaluation Date of Visit: 08/17/21 Historical Information: Description of Hearing: Mild to severe sensorineural hearing loss bilaterally Summary: Patient was seen for audiological evaluation (see separate report for details). Patient is interested in amplification. Options were discussed. Patient would like something easy to manipulate, as he has arthritis. He also reports he is not big into technology, and does not see himself using Bluetooth in the near future. Hearing Aid Prescription: Based on the individual?s shared listening needs, communication environments, dexterity, desire for connectivity, and personal preferences, the following prescription for amplification has been made: Right ear: Upper Cutter Out: Phonak Model: Audeo P70-R Battery Size: Rechargeable Color: Champagne Interior Specialist: 1M Left ear: Upper Cutter Out: Phonak Model: Audeo P70-R Battery Size: Rechargeable Color: Champagne Interior Specialist: 1M Action Taken/Action Needed: Medical Clearance to be requested from PCP/ENT Hearing Instrument Fitting to be scheduled when materials arrive Primary Diagnosis: H90.3 Bilateral Sensorineural Hearing Loss Signature: Provider: César Lorenz, CCC-A
== END 2021-08-17 10:35 | disposition home or self-care (01) ==
LOC: HO.SH 10:34
PROVIDERS: Visit Provider Internal Medicine
DX: H90.3 Sensorineural hearing loss, bilateral (principal)
CPT/HCPCS: 92557; 92567; 92591

== ENCOUNTER 2021-08-20 08:00 | Outpatient (REF) | payer MEDICARE, MEDICAID, SELFPAY ==
[2021-08-20 11:16] LABS: MANUAL DIFF FLAG NO
[2021-08-20 11:54] LABS: Basophils Percent Auto 0.6 % (0-2); Eosinophils Absolute Auto 0.1 X10*3/uL (0.0-0.4); Eosinophils Percent Auto 1.2 % (0-4); Hematocrit 36.8 % (42.0-52.0); Hemoglobin 11.8 g/dl (14.0-18.0); Imm Gran Abs Auto 0.02 X10*3/uL (0.00-0.03); Imm Gran Pct Auto 0.4 % (0.0-0.4); Lymphocytes Absolute Auto 1.4 X10*3/uL (1.2-4.9); Lymphocytes Percent Auto 26.8 % (20-40); Mean Corpuscular HGB Conc 32.1 g/dl (31.0-36.0); Mean Corpuscular Hemoglobin 26.9 pg (27.0-33.0); Mean Corpuscular Volume 83.8 fL (80.0-98.0); Mean Platelet Volume 11.6 fL (9.4-12.4); Monocytes Absolute Auto 0.4 X10*3/uL (0.1-1.2); Monocytes Percent Auto 8.6 % (2-11); Neutrophils Absolute Auto 3.2 x10*3/uL (2.0-8.3); Neutrophils Percent Auto 62.4 % (45-73); Platelet Count 168 X10*3/uL (160-400); Red Blood Count 4.39 X10*6/uL (4.60-5.80); Red Cell Distribution Width 17.8 % (11.0-16.0); White Blood Count 5.1 X10*3/uL (4.8-10.8)
[2021-08-20 11:57] LABS: Alanine Aminotransferase 10 U/L (0-40); Albumin Level 4.6 g/dL (3.5-5.0); Alkaline Phosphatase 79 U/L (39-117); Anion Gap 15 (12-20); Aspartate Amino Transferase 18 U/L (5-37); Bilirubin Total 1.1 mg/dL (0.0-1.0); Blood Urea Nitrogen 21 mg/dL (9-16); C Reactive Protein 1.53 mg/dL (< or = 0.50); Calcium 9.6 mg/dL (8.4-10.2); Carbon Dioxide 24 mmol/L (22-29); Chloride 107 mmol/L (96-108); Estimated Glomerular Filt Rate > 60; Glucose Random 102 mg/dL (60-115); Iron 58 mcg/dL (45-160); Percent Iron Saturation 17 % (15-50); Potassium 4.3 mmol/L (3.3-5.1); Sodium 142 mmol/L (135-145); Total Iron Binding Capacity 332 mcg/dL (228-428); Total Protein 7.4 g/dL (6.5-8.0); Unsaturated Iron Binding 274 ug/dL
[2021-08-20 12:32] LABS: Ferritin 61 ng/mL (20-250)
== END 2021-08-20 08:01 | disposition home or self-care (01) ==
LOC: HO.WFDLDS 08:00
PROVIDERS: Visit Provider Internal Medicine Gastroenterology
DX: K75.81 Nonalcoholic steatohepatitis (NASH) (principal); M12.9 Arthropathy, unspecified; K50.10 Crohn's disease of large intestine without complications
CPT/HCPCS: 36415; 80053; 82728; 83540; 85025; 86140

== ENCOUNTER 2021-08-25 09:16 | Outpatient (REF) | payer MEDICARE, MEDICAID, SELFPAY ==
[2021-08-27 14:52] LABS: TS Negative Control Passed; TS Panel A 0; TS Panel B 0; TS Positive Control Passed; TSpotTB Negative (Negative)
== END 2021-08-25 09:17 | disposition home or self-care (01) ==
LOC: HO.MDS 09:16
PROVIDERS: Visit Provider Internal Medicine Gastroenterology
DX: K50.10 Crohn's disease of large intestine without complications (principal)
CPT/HCPCS: 36415; 86481; 96365; J3380

== ENCOUNTER 2021-09-04 13:07 | Outpatient (REF) | payer MEDICARE, MEDICAID, SELFPAY ==
--- NOTE | 2021-09-04 14:26 | MHC.AU.HFA ---
Hearing Instrument Fitting- Adult- Binaural Date of Visit: 09/04/21 Hearing Instruments Dispensed: Right Ear: Entertainment Director: Phonak Model: Audeo P70-R Serial Number: [id number] Repair Warranty: 11/16/2024 Loss and Damage Warranty: 11/16/2024 Battery Size: Rechargeable Color: Champagne Planning Supervisor: 1M Type of Dome: Small Power Dome Type of Wax Guard: CeruShield Left Ear: Entertainment Director: Phonak Model: Audeo P70-R Serial Number: [id number] Repair Warranty: 11/16/2024 Loss and Damage Warranty: 11/16/2024 Battery Size: Rechargeable Color: Champagne Planning Supervisor: 1M Type of Dome: Small Power Dome Type of Wax Guard: CeruShield Summary of Fitting: Feedback compensation and benefits manager run. Verifit performed and levels adjusted to better reach targets. Patient felt 100% was too loud. Lowered to 90%. Increased occlusion compensation to medium, as patient felt his voice was echoing. Lowered overall gain 2 additional steps. Patient was pleased with the sound of the instruments. Hearing aid care and maintenance were discussed and practiced. Patient does not have a smartphone and does not anticipate getting one in the near future. Recommendations: Recommendations: A hearing instrument follow-up was scheduled. Diagnosis Code(s): Primary Diagnosis: H90.3 Bilateral Sensorineural Hearing Loss Signature: Provider: César Lorenz, [facility]
== END 2021-09-04 13:08 | disposition home or self-care (01) ==
LOC: HO.HAP 13:07
PROVIDERS: Visit Provider Internal Medicine
DX: Z46.1 Encounter for fitting and adjustment of hearing aid (principal); H90.3 Sensorineural hearing loss, bilateral
CPT/HCPCS: V5011; V5020; V5160; V5261

== ENCOUNTER 2021-09-25 11:02 | Outpatient (REF) | payer MEDICARE, MEDICAID, SELFPAY | END 2021-09-25 11:03 | disposition home or self-care (01) | LOC: HO.HAP 11:02 | PROVIDERS: Visit Provider Internal Medicine | DX: Z13.89 Encounter for screening for other disorder (principal) ==

== ENCOUNTER 2021-10-20 08:46 | Outpatient (REF) | payer MEDICARE, MEDICAID, SELFPAY | END 2021-10-20 08:47 | disposition home or self-care (01) | LOC: HO.MDS 08:46 | PROVIDERS: Visit Provider Internal Medicine Gastroenterology | DX: K50.10 Crohn's disease of large intestine without complications (principal) | CPT/HCPCS: 96365; J3380 ==

== ENCOUNTER → 2021-11-27 09:44 | Outpatient (BNVA) | payer MEDICARE, MEDICAID, SELFPAY | PROVIDERS: PCP Internal Medicine; Visit Provider Internal Medicine Gastroenterology | DX: K50.10 Crohn's disease of large intestine without complications (principal); M12.9 Arthropathy, unspecified; K75.81 Nonalcoholic steatohepatitis (NASH) | CPT/HCPCS: 99212 ==

== ENCOUNTER 2021-11-30 07:56 | Outpatient (REF) | payer MEDICARE, MEDICAID, SELFPAY ==
[2021-11-30 11:11] LABS: MANUAL DIFF FLAG NO
[2021-11-30 11:23] LABS: Basophils Percent Auto 0.6 % (0-2); Eosinophils Absolute Auto 0.1 X10*3/uL (0.0-0.4); Eosinophils Percent Auto 1.8 % (0-4); Hematocrit 35.3 % (42.0-52.0); Hemoglobin 11.8 g/dl (14.0-18.0); Imm Gran Abs Auto 0.06 X10*3/uL (0.00-0.03); Imm Gran Pct Auto 1.2 % (0.0-0.4); Lymphocytes Absolute Auto 1.2 X10*3/uL (1.2-4.9); Lymphocytes Percent Auto 24.6 % (20-40); Mean Corpuscular HGB Conc 33.4 g/dl (31.0-36.0); Mean Corpuscular Hemoglobin 28.9 pg (27.0-33.0); Mean Corpuscular Volume 86.5 fL (80.0-98.0); Mean Platelet Volume 12.2 fL (9.4-12.4); Monocytes Absolute Auto 0.5 X10*3/uL (0.1-1.2); Monocytes Percent Auto 10.8 % (2-11); Neutrophils Absolute Auto 3.1 x10*3/uL (2.0-8.3); Platelet Count 188 X10*3/uL (160-400); Red Blood Count 4.08 X10*6/uL (4.60-5.80); Red Cell Distribution Width 16.2 % (11.0-16.0)
[2021-11-30 11:57] LABS: Alanine Aminotransferase 13 U/L (0-40); Albumin Level 4.8 g/dL (3.5-5.0); Alkaline Phosphatase 79 U/L (39-117); Anion Gap 14 (12-20); Aspartate Amino Transferase 18 U/L (5-37); Bilirubin Total 0.9 mg/dL (0.0-1.0); Blood Urea Nitrogen 18 mg/dL (9-16); C Reactive Protein 1.95 mg/dL (< or = 0.50); Calcium 9.5 mg/dL (8.4-10.2); Carbon Dioxide 25 mmol/L (22-29); Chloride 107 mmol/L (96-108); Estimated Glomerular Filt Rate > 60; Glucose Random 106 mg/dL (60-115); Potassium 4.4 mmol/L (3.3-5.1); Sodium 142 mmol/L (135-145); Total Protein 7.5 g/dL (6.5-8.0)
[2021-11-30 12:08] LABS: Ferritin 59 ng/mL (20-250)
[2021-11-30 12:30] LABS: Folate 14.9 ng/mL (> or = 4.0); Vitamin B12 312 pg/mL (200-900)
[2021-12-07 18:27] LABS: Calprotectin, Fecal 196 mcg/g
== END 2021-11-30 07:57 | disposition home or self-care (01) ==
LOC: HO.WFDLDS 07:56
PROVIDERS: Visit Provider Internal Medicine Gastroenterology
DX: K50.10 Crohn's disease of large intestine without complications (principal); M12.9 Arthropathy, unspecified; K75.81 Nonalcoholic steatohepatitis (NASH)
CPT/HCPCS: 36415; 80053; 82607; 82728; 82746; 83993; 85025; 86140

== ENCOUNTER → 2021-12-10 09:55 | Outpatient (BNVA) | payer MEDICARE, MEDICAID, SELFPAY | PROVIDERS: PCP Internal Medicine; Visit Provider Internal Medicine | DX: G47.33 Obstructive sleep apnea (adult) (pediatric) (principal); E66.01 Morbid (severe) obesity due to excess calories; Z99.89 Dependence on other enabling machines and devices; Z68.42 Body mass index [BMI] 45.0-49.9, adult | CPT/HCPCS: 99212 ==

== ENCOUNTER 2021-12-15 08:57 | Outpatient (REF) | payer MEDICARE, MEDICAID, SELFPAY ==
[2021-12-18 15:56] LABS: TS Negative Control Passed; TS Panel A 1; TS Panel B 2; TS Positive Control Passed; TSpotTB Negative (Negative)
== END 2021-12-15 08:58 | disposition home or self-care (01) ==
LOC: HO.MDS 08:57
PROVIDERS: Visit Provider Internal Medicine Gastroenterology
DX: K50.80 Crohn's disease of both small and large intestine without complications (principal)
CPT/HCPCS: 36415; 86481; 96365; J3380

== ENCOUNTER → 2022-01-21 08:41 | Outpatient (BNVA) | payer MEDICARE, MEDICAID, SELFPAY | PROVIDERS: PCP Internal Medicine; Visit Provider Internal Medicine | DX: I11.0 Hypertensive heart disease with heart failure (principal); I50.812 Chronic right heart failure; I48.19 Other persistent atrial fibrillation; G47.33 Obstructive sleep apnea (adult) (pediatric); Z98.890 Other specified postprocedural states; Z99.89 Dependence on other enabling machines and devices | CPT/HCPCS: 93005; 99212 ==

== ENCOUNTER 2022-02-09 08:38 | Outpatient (REF) | payer MEDICARE, MEDICAID, SELFPAY | END 2022-02-09 08:39 | disposition home or self-care (01) | LOC: HO.MDS 08:38 | PROVIDERS: Visit Provider Internal Medicine Gastroenterology | DX: K50.80 Crohn's disease of both small and large intestine without complications (principal) | CPT/HCPCS: 96365; J3380 ==

== ENCOUNTER 2022-02-18 07:37 | Outpatient (REF) | payer MEDICARE, MEDICAID, SELFPAY ==
[2022-02-18 10:53] LABS: Anion Gap 16 (12-20); Blood Urea Nitrogen 25 mg/dL (9-16); Calcium 9.6 mg/dL (8.4-10.2); Carbon Dioxide 26 mmol/L (22-29); Chloride 104 mmol/L (96-108); Estimated Glomerular Filt Rate > 60; Glucose Random 100 mg/dL (60-115); Potassium 4.4 mmol/L (3.3-5.1); Sodium 142 mmol/L (135-145)
== END 2022-02-18 07:38 | disposition home or self-care (01) ==
LOC: HO.WFDLDS 07:37
PROVIDERS: Visit Provider Internal Medicine
DX: I10 Essential (primary) hypertension (principal)
CPT/HCPCS: 36415; 80048

== ENCOUNTER → 2022-03-29 09:30 | Outpatient (BNVA) | payer MEDICARE, MEDICAID, SELFPAY | PROVIDERS: PCP Internal Medicine; Visit Provider Internal Medicine Gastroenterology | DX: K50.80 Crohn's disease of both small and large intestine without complications (principal); M07.60 Enteropathic arthropathies, unspecified site; D50.0 Iron deficiency anemia secondary to blood loss (chronic); Z79.01 Long term (current) use of anticoagulants | CPT/HCPCS: 99212 ==

== ENCOUNTER 2022-04-06 08:44 | Outpatient (REF) | payer MEDICARE, MEDICAID, SELFPAY | END 2022-04-06 08:45 | disposition home or self-care (01) | LOC: HO.MDS 08:44 | PROVIDERS: Visit Provider Internal Medicine Gastroenterology | DX: K50.80 Crohn's disease of both small and large intestine without complications (principal) | CPT/HCPCS: 96365; J3380 ==

== ENCOUNTER 2022-06-01 08:35 | Outpatient (REF) | payer MEDICARE, MEDICAID, SELFPAY ==
[2022-06-03 13:39] LABS: TS Negative Control Passed; TS Panel A 4; TS Panel B 0; TS Positive Control Passed; TSpotTB Negative (Negative)
== END 2022-06-01 08:36 | disposition home or self-care (01) ==
LOC: HO.MDS 08:35
PROVIDERS: Visit Provider Internal Medicine Gastroenterology
DX: K50.80 Crohn's disease of both small and large intestine without complications (principal)
CPT/HCPCS: 36415; 86481; 96365; J3380

== ENCOUNTER → 2022-06-07 10:31 | Outpatient (BNVA) | payer MEDICARE, MEDICAID, SELFPAY | PROVIDERS: PCP Internal Medicine; Visit Provider Internal Medicine | DX: G47.33 Obstructive sleep apnea (adult) (pediatric) (principal); E66.01 Morbid (severe) obesity due to excess calories; Z99.89 Dependence on other enabling machines and devices; Z68.42 Body mass index [BMI] 45.0-49.9, adult | CPT/HCPCS: 99212 ==

== ENCOUNTER 2022-07-27 08:35 | Outpatient (REF) | payer MEDICARE, MEDICAID, SELFPAY | END 2022-07-27 08:36 | disposition home or self-care (01) | LOC: HO.MDS 08:35 | PROVIDERS: Visit Provider Internal Medicine Gastroenterology | DX: K50.10 Crohn's disease of large intestine without complications (principal) | CPT/HCPCS: 96365; J1756; J3380 ==

== ENCOUNTER → 2022-08-27 09:28 | Outpatient (BNVA) | payer MEDICARE, MEDICAID, SELFPAY | PROVIDERS: PCP Internal Medicine; Visit Provider Internal Medicine Gastroenterology | DX: K50.10 Crohn's disease of large intestine without complications (principal); M07.60 Enteropathic arthropathies, unspecified site; D63.8 Anemia in other chronic diseases classified elsewhere; K75.81 Nonalcoholic steatohepatitis (NASH); E66.01 Morbid (severe) obesity due to excess calories; Z68.42 Body mass index [BMI] 45.0-49.9, adult; Z79.631 Long term (current) use of antimetabolite agent; Z79.01 Long term (current) use of anticoagulants | CPT/HCPCS: 99212 ==

== ENCOUNTER 2022-09-07 08:43 | Outpatient (REF) | payer MEDICARE, MEDICAID, SELFPAY ==
[2022-09-07 11:20] LABS: MANUAL DIFF FLAG NO
[2022-09-07 11:57] LABS: Basophils Percent Auto 0.8 % (0-2); Eosinophils Absolute Auto 0.1 X10*3/uL (0.0-0.4); Eosinophils Percent Auto 1.5 % (0-4); Hematocrit 33.1 % (42.0-52.0); Hemoglobin 11.1 g/dl (14.0-18.0); Imm Gran Abs Auto 0.06 X10*3/uL (0.00-0.03); Imm Gran Pct Auto 1.5 % (0.0-0.4); Lymphocytes Absolute Auto 0.8 X10*3/uL (1.2-4.9); Lymphocytes Percent Auto 19.5 % (20-40); Mean Corpuscular HGB Conc 33.5 g/dl (31.0-36.0); Mean Corpuscular Hemoglobin 29.1 pg (27.0-33.0); Mean Corpuscular Volume 86.6 fL (80.0-98.0); Mean Platelet Volume 11.4 fL (9.4-12.4); Monocytes Absolute Auto 0.5 X10*3/uL (0.1-1.2); Neutrophils Absolute Auto 2.6 x10*3/uL (2.0-8.3); Neutrophils Percent Auto 63.7 % (45-73); Platelet Count 173 X10*3/uL (160-400); Red Blood Count 3.82 X10*6/uL (4.60-5.80); Red Cell Distribution Width 16.6 % (11.0-16.0)
[2022-09-07 12:40] LABS: Erythrocyte Sedimentation Rate 27 MM/HR (0-15)
[2022-09-07 13:35] LABS: Alanine Aminotransferase 14 U/L (0-40); Albumin Level 4.5 g/dL (3.5-5.0); Alkaline Phosphatase 80 U/L (39-117); Anion Gap 15 (12-20); Aspartate Amino Transferase 21 U/L (5-37); Bilirubin Total 1.8 mg/dL (0.0-1.0); Blood Urea Nitrogen 27 mg/dL (9-16); C Reactive Protein 2.38 mg/dL (< or = 0.50); Calcium 9.4 mg/dL (8.4-10.2); Carbon Dioxide 25 mmol/L (22-29); Chloride 106 mmol/L (96-108); Estimated Glomerular Filt Rate > 60; Glucose Random 116 mg/dL (60-115); Potassium 4.2 mmol/L (3.3-5.1); Sodium 142 mmol/L (135-145); Total Protein 6.9 g/dL (6.5-8.0)
[2022-09-07 14:14] LABS: Folate 13.2 ng/mL (> or = 4.0); Vitamin B12 405 pg/mL (200-900)
[2022-09-12 13:43] LABS: Gastrin 79 pg/mL (<=100)
[2022-09-14 09:38] LABS: Calprotectin, Fecal 607 mcg/g
== END 2022-09-07 08:44 | disposition home or self-care (01) ==
LOC: HO.WFDLDS 08:43
PROVIDERS: Visit Provider Internal Medicine Gastroenterology
DX: K50.10 Crohn's disease of large intestine without complications (principal); K75.81 Nonalcoholic steatohepatitis (NASH); M12.9 Arthropathy, unspecified
CPT/HCPCS: 36415; 80053; 82607; 82746; 82941; 83993; 85025; 85652; 86140

== ENCOUNTER → 2022-09-15 09:47 | Outpatient (BNVA) | payer MEDICARE, MEDICAID, SELFPAY | PROVIDERS: PCP Internal Medicine; Referring Provider Internal Medicine; Visit Provider Internal Medicine | DX: I11.0 Hypertensive heart disease with heart failure (principal); I50.812 Chronic right heart failure; I48.19 Other persistent atrial fibrillation; G47.33 Obstructive sleep apnea (adult) (pediatric); R20.2 Paresthesia of skin; Z98.890 Other specified postprocedural states; Z99.89 Dependence on other enabling machines and devices | CPT/HCPCS: 99212 ==

== ENCOUNTER 2022-09-21 08:51 | Outpatient (REF) | payer MEDICARE, MEDICAID, SELFPAY | END 2022-09-21 08:52 | disposition home or self-care (01) | LOC: HO.MDS 08:51 | PROVIDERS: Visit Provider Internal Medicine Gastroenterology | DX: K50.90 Crohn's disease, unspecified, without complications (principal) | CPT/HCPCS: 96365; J3380 ==

== ENCOUNTER → 2022-10-06 10:40 | Outpatient (BNVA) | payer MEDICARE, MEDICAID, SELFPAY | PROVIDERS: PCP Internal Medicine; Visit Provider Student in an Organized Health Care Education/Training Program | DX: M07.60 Enteropathic arthropathies, unspecified site (principal); K63.9 Disease of intestine, unspecified | CPT/HCPCS: 99212 ==

== ENCOUNTER 2022-11-17 08:46 | Outpatient (REF) | payer MEDICARE, MEDICAID, SELFPAY | END 2022-11-17 08:47 | disposition home or self-care (01) | LOC: HO.MDS 08:46 | PROVIDERS: Visit Provider Internal Medicine Gastroenterology | DX: K50.90 Crohn's disease, unspecified, without complications (principal) | CPT/HCPCS: 96365; J3380 ==

== ENCOUNTER 2022-12-14 07:14 | Outpatient (REF) | payer MEDICARE, MEDICAID, SELFPAY ==
[2022-12-14 11:16] LABS: MANUAL DIFF FLAG NO
[2022-12-14 11:40] LABS: Basophils Percent Auto 0.9 % (0-2); Eosinophils Absolute Auto 0.1 X10*3/uL (0.0-0.4); Eosinophils Percent Auto 2.1 % (0-4); Hematocrit 31.6 % (42.0-52.0); Hemoglobin 10.5 g/dl (14.0-18.0); Imm Gran Abs Auto 0.08 X10*3/uL (0.00-0.03); Imm Gran Pct Auto 2.4 % (0.0-0.4); Lymphocytes Absolute Auto 0.6 X10*3/uL (1.2-4.9); Lymphocytes Percent Auto 17.9 % (20-40); Mean Corpuscular HGB Conc 33.2 g/dl (31.0-36.0); Mean Corpuscular Hemoglobin 29.2 pg (27.0-33.0); Mean Corpuscular Volume 87.8 fL (80.0-98.0); Monocytes Absolute Auto 0.4 X10*3/uL (0.1-1.2); Monocytes Percent Auto 12.4 % (2-11); Neutrophils Absolute Auto 2.2 x10*3/uL (2.0-8.3); Neutrophils Percent Auto 64.3 % (45-73); Platelet Count 156 X10*3/uL (160-400); Red Cell Distribution Width 17.9 % (11.0-16.0); White Blood Count 3.4 X10*3/uL (4.8-10.8)
[2022-12-14 11:47] LABS: Estimated Average Glucose 91 mg/dL; Hemoglobin A1c % 4.8 %
[2022-12-14 12:00] LABS: Alanine Aminotransferase 14 U/L (0-40); Albumin Level 4.3 g/dL (3.5-5.0); Alkaline Phosphatase 67 U/L (39-117); Anion Gap 18 (12-20); Aspartate Amino Transferase 20 U/L (5-37); Bilirubin Total 0.9 mg/dL (0.0-1.0); Blood Urea Nitrogen 26 mg/dL (9-16); C Reactive Protein 2.16 mg/dL (< or = 0.50); Calcium 9.5 mg/dL (8.4-10.2); Carbon Dioxide 20 mmol/L (22-29); Chloride 107 mmol/L (96-108); Estimated Glomerular Filt Rate > 60; Glucose Random 105 mg/dL (60-115); Sodium 141 mmol/L (135-145); Total Protein 7.1 g/dL (6.5-8.0)
[2022-12-14 12:22] LABS: Erythrocyte Sedimentation Rate 22 MM/HR (0-15)
[2022-12-14 12:23] LABS: Folate 14.8 ng/mL (> or = 4.0); Vitamin B12 371 pg/mL (200-900)
[2022-12-14 12:31] LABS: B Type Natriuretic Peptide 39 pg/mL (<100)
[2022-12-14 12:34] LABS: Vitamin D 25-OH Total 38.4 ng/mL (>30)
[2022-12-18 11:33] LABS: Vitamin B1 17 nmol/L (8-30)
== END 2022-12-14 07:15 | disposition home or self-care (01) ==
LOC: HO.WFDLDS 07:14
PROVIDERS: Internal Medicine; Visit Provider Student in an Organized Health Care Education/Training Program
DX: I50.9 Heart failure, unspecified (principal); E11.9 Type 2 diabetes mellitus without complications; K50.90 Crohn's disease, unspecified, without complications
CPT/HCPCS: 36415; 80053; 82306; 82607; 82746; 83036; 83880; 84425; 85025; 85652; 86140

== ENCOUNTER 2022-12-27 09:51 | Outpatient (AMB) | payer MEDICARE, MEDICAID, SELFPAY ==
[2022-12-27 10:10] VITALS: BP 130/68; PULSE 56; O2SAT 97; BMI 45.3
--- NOTE | 2022-12-27 10:10 | MHC.OFFVIS ---
Intake Vital Signs 12/27/22 10:10 Height 5 ft 11 in Weight 325 lb BMI 45.3 BP 130/68 Blood Pressure Location Lt brachial Position Standing Pulse 56 Pulse Source Pulse Oximeter Pulse Oximetry (%) 97 Oxygen Delivery Method Room Air Intake Visit Reasons: Obstructive sleep apnea Intake Note: pt is here for follow up and doing well. Radiator Cleaner Required: No Allergies tramadol Allergy (Mild, Verified 12/27/22 10:18) Dizziness Medication List - Last Reconciled 12/27/22 by Cipriano Pearson MD acetaminophen ER (Tylenol Arthritis Pain) 1,300 mg PO Q8H amlodipine 10 mg PO DAILY apixaban (Eliquis) 5 mg PO BID ferrous sulfate 324 mg PO DAILY folic acid 1 mg PO DAILY 90 days furosemide 80 mg PO QAM insulin syringe,safetyneedle (Assure ID Insulin Safety) 25 mg methotrxate weekly losartan 100 mg PO DAILY methotrexate sodium 25 mg subcut QWEEK multivitamin 1 tab PO DAILY pantoprazole 40 mg PO DAILY 90 days pvujzkz-vypw-yqscj-oreg-capryl 100 mg-150 mg- 50 mg-150 mg 1 cap PO DAILY vedolizumab 300 mg IV Q8W Do you need a note to return to daycare/school/sports/work: No HPI Obstructive sleep apnea HPI Details 67 YEARS OLD GENTLEMAN, WITH MORBID OBESITY, OBSTRUCTIVE SLEEP APNEA , IS BEING TREAT,ED WITH BIPAP 24/20 CMs U I HOURS PER. NIGHTSING FULLFACE MASK. COMES AFTER 6 MONTHS FOR FOLLOW-UP. HE IS A VERY REGULAR USER OF BIPAP. HE HAS NO RESPIRATORY ISSUES DURING THE DAYTIME. WEIGHT CASTRO THERE HAS BEEN NO CHANGE EXCEPT FOR A FEW LBs DOWN. HE IS AFFLICTED BY SEVERE RHEUMATOID ARTHRITIS/ AND INFLAMMATORY BOWEL DISEASE, SO IT IS DIFFICULT FOR HIM TO DO ANY EXERCISE. HE IS NOT IN ANY WEIGHT MANAGEMENT PROGRAM BUT TRIES TO RESTRICT CALORIES INTAKE MUCH POSSIBLE. [facility] Medical History Chronic right heart failure Crohn's disease Epidermal cyst Essential hypertension Morbid obesity TIFFANY on CPAP Surgical History History of colonoscopy History of esophagogastroduodenoscopy (EGD) History of excision of epidermal inclusion cyst (~03/27/21) Status post surgical atrial septal defect closure Family History Father Hx of Crohn's disease Mother Hx of type 2 diabetes mellitus Social History Alcohol intake: never Patient Tobacco Use Status: Former Tobacco user Quit Date: 1979 Years Smoked: 10 +/- Review of Systems Const All systems reviewed & are unremarkable except as noted in HPI and below Eyes Reports no additional complaints ENT Reports no additional complaints Card Denies chest pain, Denies irregular heart rhythm and Denies leg edema Resp Reports as per HPI GI Reports GI cramping and Reports heartburn Reports no additional complaints Musc Reports arthralgias (especially in wrist joints) Neuro Reports no additional complaints Psych Reports no additional complaints Physical Exam Const General: comfortable, no acute distress, alert and awake Orientation/consciousness: patient oriented x3 HEENT Head: Yes normal to inspection General nose exam: No nasal polyps present and No nasal discharge present Face and sinus: Yes sinuses nontender Mouth: oropharynx normal Throat: Yes posterior oropharynx normal Eyes General: appearance normal, both eyes and all related structures Neck Neck: Yes normal visual inspection, Yes no lymphadenopathy, Yes trachea midline and Yes no JVD Thyroid: Thyroid normal Chest Chest palpation & inspection: normal inspection of the chest, normal palpation of entire chest wall and no tenderness Resp Effort & Inspection: normal respiratory effort Auscultation: clear to auscultation bilaterally, no crackles and no wheezes Cardio Palpation: normal PMI Rate: regular rate Rhythm: regular rhythm Heart sounds: no gallops and no murmurs Peripheral pulses: Peripheral pulses 2+ throughout GI Palpation (GI): Soft to palpation, nontender, No hepatosplenomegaly present, no masses and Other GI palpation findings present (Midline scar Abdomen is Obese and protuberant, Lt. sided ventral hernia , ) Auscultation: normal bowel sounds Back/Spine/Pelvis Thoracic/Lumbar Spine: thoracic and lumbar spine normal to inspection Skin General skin exam: no rashes or lesions noted Neuro General: patient oriented x3 and no focal motor deficits Cranial nerves: Yes CN's II-XII intact bilaterally Extrem General: Yes normal to inspection, Yes no clubbing, cyanosis or edema and Yes no calf tenderness Psych Appearance: grossly normal and well kempt Speech and movement: Normal speech and movement present Results Reviewed Results Reviewed: Compliance report for the last 30 night.s reviewed He has used 30/30 nights,. 100% of the nights . Average use per night 8 hours 43 minute, which is excellent. There is some air leak, and residual AHI 10.3 probably due to air leak. Assessment & Plan Assessment & Plan (1) Morbid obesity: Comment: IT IS A CHRONIC PROBLEM, HE IS WELL AWARE OF THIS ISSUE. TALKED ABOUT DIET. AND ALSO ABOUT EXERCISE LIKE WALKING ABOUT 2 MILES EVERY DAY. HE HAS LIMITED CAPACITY TO WALK AND DO SOME EXERCISE DUE TO HIS CHRONIC ARTHROPATHY. DOES NOT WANT TO BE IN ANY WEIGHT MANAGEMENT PROGRAM. Code(s): E66.01 - Morbid (severe) obesity due to excess calories (2) TIFFANY on CPAP: Comment: HE HAS SEVERE OBSTRUCTIVE SLEEP APNEA REQUIRING BILEVEL PRESSURE. HE HAS EXCELLENT COMPLIANCE AND USES FOR 8 HOURS + EVERY NIGHT. THERE IS SOME AIR LEAK ISSUE AND HE HAS TRIES TO TIGHTEN THE STRAPS MUCH HE CAN. Code(s): G47.33 - Obstructive sleep apnea (adult) (pediatric); Z99.89 - Dependence on other enabling machines and devices Coding Level of Care Code Est Pt Level 3 (08794) Diagnoses Morbid obesity E66.01 TIFFANY on CPAP G47.33; Z99.89
== END 2022-12-27 10:25 | disposition home or self-care (01) ==
PROVIDERS: PCP Internal Medicine; Visit Provider Internal Medicine
DX: E66.01 Morbid (severe) obesity due to excess calories (principal); G47.33 Obstructive sleep apnea (adult) (pediatric); Z99.89 Dependence on other enabling machines and devices
CPT/HCPCS: 99213

== ENCOUNTER → 2022-12-27 09:51 | Outpatient (BNVA) | payer MEDICARE, MEDICAID, SELFPAY | PROVIDERS: PCP Internal Medicine; Visit Provider Internal Medicine | DX: G47.33 Obstructive sleep apnea (adult) (pediatric) (principal); E66.01 Morbid (severe) obesity due to excess calories; Z68.42 Body mass index [BMI] 45.0-49.9, adult; Z99.89 Dependence on other enabling machines and devices | CPT/HCPCS: 99212 ==

== ENCOUNTER 2023-01-11 08:47 | Outpatient (REF) | payer MEDICARE, MEDICAID, SELFPAY | END 2023-01-11 08:48 | disposition home or self-care (01) | LOC: HO.MDS 08:47 | PROVIDERS: Visit Provider Internal Medicine Gastroenterology | DX: K50.10 Crohn's disease of large intestine without complications (principal) | CPT/HCPCS: 96365; 99212; J3380 ==

== ENCOUNTER 2023-01-11 13:20 | Outpatient (AMB) | payer MEDICARE, MEDICAID, SELFPAY ==
[2023-01-11 13:36] VITALS: BP 128/72; PULSE 65; TEMP 36.3; BMI 45.7
--- NOTE | 2023-01-11 13:36 | MHC.OFFVIS ---
Intake Vital Signs 01/11/23 13:36 Height 5 ft 11 in Weight 327 lb 13.238 oz BMI 45.7 BP 128/72 Blood Pressure Location Rt brachial Position Sitting Pulse 65 Pulse Source Pulse Oximeter Temp 97.3 F Temp Source Skin Intake Visit Reasons: Crohn's colitis Intake Note: Pt seen today for follow up. C/o bl hand tingling, weakness, loss of sensation; dropping things Human Resources Recruiter Required: No Accompanied by: Spouse Allergies tramadol Allergy (Mild, Verified 01/11/23 13:38) Dizziness Medication List - Last Reconciled 01/11/23 by Viral Balderrama MD acetaminophen ER (Tylenol Arthritis Pain) 1,300 mg PO Q8H amlodipine 10 mg PO DAILY apixaban (Eliquis) 5 mg PO BID ferrous sulfate 324 mg PO DAILY folic acid 1 mg PO DAILY 90 days furosemide 80 mg PO QAM insulin syringe,safetyneedle (Assure ID Insulin Safety) 25 mg methotrxate weekly losartan 100 mg PO DAILY methotrexate sodium 25 mg subcut QWEEK multivitamin 1 tab PO DAILY pantoprazole 40 mg PO DAILY 90 days kgndigb-dtij-emjhe-oreg-capryl 100 mg-150 mg- 50 mg-150 mg 1 cap PO DAILY vedolizumab 300 mg IV Q8W HPI HPI Comments History of Present Illness Details 67 yoM with a PMH of Crohns disease with small and large bowel involvement presents for follow-up. Doing well overall with no joint pain, swelling or stiffness. States however that he has bilateral finger tingling and numbness, usually wakes him up from sleep. Since using the wrist splints he is a little better but this is his main complaint. He has difficulty gripping things due to numbness. Objects fall from his hand. Does not report any side effects related to methotrexate Per Dr. Manuel: Presents for follow-up of initial testing. At last visit, patient received a prednisone taper which he states significantly helped his joint pain. He has now completed the prednisone and some of his joint pain has returned. From last visit: Patient is currently on Entyvio for his Crohns. He was previously treated with Humira however did not respond to therapy in terms of his bowel disease or his joint pain. He reports a few years of joint pain mostly located in his hands, feet, and neck. He has swelling located in his MCPs and PIPs as well as nodules by both elbows. Has stiffness in his hands and is unable to make fists. States that his feet feel like he is walking on glass. He was given a prednisone taper by his PCP which helped immensely with his pain and swelling. He was also given Sulfasalazine by Dr Taylor in GI and took it for a couple of weeks but states that it did not help his joint pain. Unable to take NSAIDs as he is on Eliquis for Afib. No family history of RA, SLE, Crohns, Psoriasis or Psoriatic Arthritis. [facility] Medical History Chronic right heart failure Crohn's disease Epidermal cyst Essential hypertension Morbid obesity TIFFANY on CPAP Surgical History History of colonoscopy History of esophagogastroduodenoscopy (EGD) History of excision of epidermal inclusion cyst (~03/27/21) Status post surgical atrial septal defect closure Family History Father Hx of Crohn's disease Mother Hx of type 2 diabetes mellitus Social History Alcohol intake: never Patient Tobacco Use Status: Former Tobacco user Quit Date: 1979 Years Smoked: 10 +/- Review of Systems Neuro Reports Sensory deficit (Neuro) Physical Exam Vital Signs: Last Vital Signs Temp 97.3 F 01/11/23 13:36 Pulse 65 01/11/23 13:36 BP 128/72 01/11/23 13:36 BMI result Body Mass Index 45.7 Const General: cooperative, healthy appearing and comfortable Nutritional Appearance: obese morbidly obese Orientation/consciousness: patient oriented x3 Limitations: no limitations and ambulation with cane HEENT Head: Yes normocephalic and Yes atraumatic Resp Effort & Inspection: normal respiratory effort and able to speak in complete sentences Auscultation: clear to auscultation bilaterally Cardio Rate: regular rate Skin General skin exam: no rashes or lesions noted Neuro General: patient oriented x3 Sensory Exam: Sensory deficit (Neuro) Extrem Other: Bilateral diffuse MCP swelling without tenderness No wrist swelling or tenderness bilaterally, no pain with full flexion and extension Bilateral reduced microbiology quality control technician strength Negative Tinel sign Bilateral nodules just anterior to the elbows nontender Idris test 10-14 cm Normal lateral flexion test bilaterally Assessment & Plan Assessment & Plan (1) Arthritis associated with inflammatory bowel disease: Code(s): K63.9 - Disease of intestine, unspecified; M07.60 - Enteropathic arthropathies, unspecified site Plan: This is a 67-year-old male with IBD related arthritis who returns for follow-up. For his Crohn's disease patient failed Humira even weekly dosing, he was switched to Entyvio with improvement. Currently on methotrexate 25 mg subQ once weekly. Upon evaluation today I do not see any signs of active inflammatory arthritis. Patient's symptoms are mostly due to carpal tunnel syndrome. He has chronically elevated CRP. Obesity has been associated with elevated CRP. Continue methotrexate to 25 mg subcutaneously every weekly. Folic acid 1 mg daily. Follow-up in 4 months. Labs before next visit. (2) Carpal tunnel syndrome on both sides: Code(s): G56.03 - Carpal tunnel syndrome, bilateral upper limbs Plan: This seems to be his most bothersome symptom. EMG is scheduled for 01/20/2023. Will refer patient to hand surgeon. Continue wrist splints Plan I spent 25 minutes reviewing patient's chart, evaluating patient, ordering diagnostic workup, counseling patient and documenting in the chart Orders: Orders Complete Blood Count Auto Diff 4 Months K63.9 - Disease of intestine, unspecified, M07.60 - Enteropathic arthropathies, unspecified site Comprehensive Met. Panel 4 Months K63.9 - Disease of intestine, unspecified, M07.60 - Enteropathic arthropathies, unspecified site C Reactive Protein 4 Months K63.9 - Disease of intestine, unspecified, M07.60 - Enteropathic arthropathies, unspecified site Erythrocyte Sedimentation Rate 4 Months K63.9 - Disease of intestine, unspecified, M07.60 - Enteropathic arthropathies, unspecified site Uric Acid 4 Months M10.9 - Gout, unspecified Referrals Hand Surgery Referral G56.03 - Carpal tunnel syndrome, bilateral upper limbs Coding Level of Care Code Est Pt Level 4 (23860) Diagnoses Arthritis associated with inflammatory bowel disease K63.9; M07.60 Carpal tunnel syndrome on both sides G56.03
== END 2023-01-11 14:12 | disposition home or self-care (01) ==
PROVIDERS: PCP Internal Medicine; Visit Provider Student in an Organized Health Care Education/Training Program
DX: K63.9 Disease of intestine, unspecified (principal); M07.60 Enteropathic arthropathies, unspecified site; G56.03 Carpal tunnel syndrome, bilateral upper limbs
CPT/HCPCS: 99214

== ENCOUNTER 2023-01-20 12:44 | Outpatient (AMB) | payer MEDICARE, MEDICAID, SELFPAY ==
[2023-01-20 12:52] VITALS: BP 140/60; PULSE 67; O2SAT 95; BMI 45.8
--- NOTE | 2023-01-20 12:52 | MHC.OFFVIS ---
Intake Vital Signs 01/20/23 12:52 Height 5 ft 11 in Weight 328 lb 8 oz BMI 45.8 BP 140/60 H Blood Pressure Location Rt brachial Position Sitting Pulse 67 Pulse Source Pulse Oximeter Pulse Oximetry (%) 95 Oxygen Delivery Method Room Air Intake Visit Reasons: NPV- Paresthesia of skin-confirmed Intake Note: Pt presents in office as a NPV for paresthedia of skin. White Shoe Ragger Required: No Allergies tramadol Allergy (Mild, Verified 01/20/23 12:55) Dizziness Medication List - Last Reconciled 01/20/23 by Isabela Diggs MD acetaminophen ER (Tylenol Arthritis Pain) 1,300 mg PO Q8H amlodipine 10 mg PO DAILY apixaban (Eliquis) 5 mg PO BID ferrous sulfate 324 mg PO DAILY folic acid 1 mg PO DAILY 90 days furosemide 80 mg PO QAM insulin syringe,safetyneedle (Assure ID Insulin Safety) 25 mg methotrxate weekly losartan 100 mg PO DAILY methotrexate sodium 25 mg subcut QWEEK multivitamin 1 tab PO DAILY pantoprazole 40 mg PO DAILY 90 days jaiokrp-xagi-cxgco-oreg-capryl 100 mg-150 mg- 50 mg-150 mg 1 cap PO DAILY vedolizumab 300 mg IV Q8W HPI HPI Comments History of Present Illness Details 67y/o male comes for evaluation of tingling and numbness in hands. It started about 1 year ago and has progressed. iT started with tingling and now has numbness. He also has pain and is usually after activity. He sleeps with wrist splints. Inspite of the splints he wakes up in the middle of the night with tingling and pain Any activity with hands worsens. He sees a chiropractor for his neck.He has cervical spondylosis and his last MRI was 2 years ago. He denies nay urinary issues, has mild gait problems b/o arthritis. He has TIFFANY and is on CPAP. COUNTS INCLUDE 234 BEDS AT THE [facility] Medical History (Updated 01/20/23 @ 14:07 by Isabela Diggs MD) Cervical spondylosis Epidermal cyst Essential hypertension Chronic right heart failure Crohn's disease TIFFANY on CPAP Morbid obesity Surgical History History of excision of epidermal inclusion cyst (~03/27/21) History of esophagogastroduodenoscopy (EGD) Status post surgical atrial septal defect closure History of colonoscopy Family History Father Hx of Crohn's disease Cancer Mother Hx of type 2 diabetes mellitus Social History Alcohol intake: never Patient Tobacco Use Status: Former Tobacco user Quit Date: 1979 Years Smoked: 10 +/- Review of Systems Neuro Reports Sensory deficit (Neuro) Physical Exam Vital Signs: Last Vital Signs Pulse 67 01/20/23 12:52 BP 140/60 H 01/20/23 12:52 Pulse Ox 95 01/20/23 12:52 Oxygen Delivery Method Room Air 01/20/23 12:52 BMI result Body Mass Index 45.8 Const General: cooperative, healthy appearing, comfortable and no acute distress Nutritional Appearance: obese Orientation/consciousness: patient oriented x3 Eyes Pupils: Equal, round and reactive pupils present Neuro Other: mils weakness of hand grasps General: patient oriented x3, tone normal, moves all extremities and no focal motor deficits Cranial nerves: Yes Facial sensation intact/muscles of mastication intact, Yes Equal, round and reactive pupils present, Yes Bilaterally intact EOM present, Yes Nystagmus not present, Yes Normal facial strength present, Yes Midline tongue present and Yes Symmetric palate elevation present Cognition (Neuro): normal cognition Gait exam (Neuro): Antalgic gait present Motor exam (neuro): 5/5 motor strength present throughout and Normal motor muscle tone present throughout Sensory Exam: Sensory deficit (Neuro) Deep tendon reflexes (DTR's): Right triceps reflex intensity grade: 1+, Left triceps reflex intensity grade: 1+, Rt Biceps (C5, C6): 1+, Left biceps reflex intensity grade: 1+, Right brachioradialis reflex intensity grade: 1+, Left brachioradialis reflex intensity grade: 1+, Right patellar reflex intensity grade: 1+ and Left patellar reflex intensity grade: 1+ Coordination: [id number] test normal Assessment & Plan Assessment & Plan (1) Bilateral hand pain: Comment: ? carpal tunnel ? cervical spondylosis Code(s): M79.641 - Pain in right hand; M79.642 - Pain in left hand (2) Tingling of both upper extremities: Code(s): R20.2 - Paresthesia of skin (3) Cervical spondylosis: Code(s): M47.812 - Spondylosis without myelopathy or radiculopathy, cervical region Plan EMG NCS UE C spine MRI to evaluate cervical spndylosis Orders: Orders MR cervical spine wo con Today M47.812 - Spondylosis without myelopathy or radiculopathy, cervical region, M79.641 - Pain in right hand, M79.642 - Pain in left hand NE electromyogram (EMG) Today R20.2 - Paresthesia of skin Coding Level of Care Code New Pt Level 4 (16955) Diagnoses Bilateral hand pain M79.641; M79.642 Tingling of both upper extremities R20.2 Cervical spondylosis M47.812
== END 2023-01-20 13:21 | disposition home or self-care (01) ==
PROVIDERS: PCP Internal Medicine; Visit Provider Psychiatry & Neurology Neurology
DX: M79.641 Pain in right hand (principal); M79.642 Pain in left hand; R20.2 Paresthesia of skin; M47.812 Spondylosis without myelopathy or radiculopathy, cervical region
CPT/HCPCS: 99204

== ENCOUNTER → 2023-01-20 12:44 | Outpatient (BNVA) | payer MEDICARE, MEDICAID, SELFPAY | PROVIDERS: PCP Internal Medicine; Visit Provider Psychiatry & Neurology Neurology | DX: R20.2 Paresthesia of skin (principal); M79.641 Pain in right hand; M79.642 Pain in left hand; M47.812 Spondylosis without myelopathy or radiculopathy, cervical region | CPT/HCPCS: 99202 ==

== ENCOUNTER → 2023-01-26 12:18 | Outpatient (BNVA) | payer MEDICARE, MEDICAID, SELFPAY | PROVIDERS: PCP Internal Medicine; Visit Provider Orthopaedic Surgery ==

== ENCOUNTER 2023-02-17 12:34 | Outpatient (REF) | payer MEDICARE, MEDICAID, SELFPAY | END 2023-02-17 12:35 | disposition home or self-care (01) | LOC: HO.NEURO 12:34 | PROVIDERS: PCP Internal Medicine; Visit Provider Psychiatry & Neurology Neurology | DX: R20.2 Paresthesia of skin (principal) | CPT/HCPCS: 95886; 95911 ==

== ENCOUNTER → 2023-02-17 12:37 | Outpatient (BNV) | payer MEDICARE, MEDICAID, SELFPAY | PROVIDERS: PCP Internal Medicine; Visit Provider Physical Medicine & Rehabilitation | DX: G56.13 Other lesions of median nerve, bilateral upper limbs (principal); G56.03 Carpal tunnel syndrome, bilateral upper limbs; G56.23 Lesion of ulnar nerve, bilateral upper limbs | CPT/HCPCS: 95886; 95911 ==

== ENCOUNTER 2023-02-25 11:04 | Outpatient (AMB) | payer MEDICARE, MEDICAID, SELFPAY ==
--- NOTE | 2023-02-25 11:06 | MHC.OFFVIS ---
Intake Vital Signs 02/25/23 11:09 Height 5 ft 11 in Weight 326 lb 4.546 oz BMI 45.5 BP 158/83 H Blood Pressure Location Lt brachial Position Sitting Pulse 56 Intake Visit Reasons: 6 mnth folloe up Intake Note: Hector presents in the office as a 6 month follow up. CC: He states that he feels good today - he is just having issues where there is no feelings in his hands - he sees that on tuesday. Talent Acquisition Lead Required: No Allergies tramadol Allergy (Mild, Verified 02/25/23 11:10) Dizziness HPI 6 mnth folloe up HPI Details 67 yr old m here for f/u for crohns INDEX visit-- ? he had loose stools for 3 months ? he noted it was worse when he was started on meloxicam and naprosyn and after he stopped it got better but he still has the loose stools 1-2 times/day ? he denies blood in stool ? has a lot of gas and gurgles ? no nausea or vomtiing ? appetite is variable ? weight is gone down 20# but seems to have plateued ? deneis abdo pain ? denies fevers or chillss ? no ABx last few months ? PCP checked c diff 12/2018 and was neg, stool c/s neg and o/p neg ?he had partial colectomy for diverticulitsi ? he never had colonoscopy. ? Colonoscopy/EGD 03/2020--- atrophic gastritis, esophagitis, duodenitis, colon granular with erythema, bx with inactive and active colitis/ileiits, granuloma seen, gastritis, esophagitis ? commenced on mesalamine, but changed to budesonide due to high fecal nia ? fecal nia was 1146 ? c diff neg 12/2018 ? panc elastase 382 ?? ? at f/u 07/2019:::::: ? diarrhea had improved ? goes to toilet once a day, usu formed, but soft,, not runny ? ? 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 but HGB was better than before 09/04 with HGB 11.8, mild CRP elevation Repeat labs:11/2021 HGB 11.8 WCC: 5 pls 188 CRP 1.25 fecal nia: 196 LFt normal LABS:12/14/22 HGB 10.5 WCC: 3.4 CRP 2.16 LFt nml INTERIM: No diarrhea, stools are normal-on usual pattern of once daily waiting to see hand surgeon for capral tunnel syndrome appetite is good, losing weight deliberately as before cont taking MTX on regular basis with variable relief--rheum wanted dose at 25 mg due to his weight no breathing issues, no chest pain or bruising EXAM: GENERAL: The patient is obese VITAL SIGNS:see workflow HEENT: Nonicteric sclerae, PERRLA, EOMI. Oropharynx clear. Moist mucous membranes. Conjunctivae appear well perfused. No thyroid mass. CHEST: Chest wall is nontender. HEART: Regular rate and rhythm without murmurs. LUNGS: Clear to auscultation bilaterally. ABDOMEN: Soft, positive bowel sounds, nontender, no organomegaly.no flank tenderness, scar noted from prior surgery SKIN: No rash, no excessive bruising, petechiae, or purpura. NEUROLOGIC: Cranial nerves II-XII intact without motor/sensory deficit. no synovitis in hands ?A/P: 1. Crohn''s disease of both small and large intestine without complication 2. arthropathy, related to crohns, possible degenerative disease as well, on MTX, carapl tunnel syndrome 3/ anemia of chronic disease related to crohns and arthropathy, with super added iron def from occult GI blood loss from colitis and anti coagulant usage--HGB has been stable ? PLAN: 1/ cont with MTX, 25 mg per rheum 2/ cont with entyvio, 3/ see afte rhand surgery 4/ colonoscopy next year [facility] Medical History Cervical spondylosis Epidermal cyst Essential hypertension Chronic right heart failure Crohn's disease TIFFANY on CPAP Morbid obesity Surgical History History of excision of epidermal inclusion cyst (~03/27/21) History of esophagogastroduodenoscopy (EGD) Status post surgical atrial septal defect closure History of colonoscopy Family History Father Hx of Crohn's disease Cancer Mother Hx of type 2 diabetes mellitus Social History Alcohol intake: never Patient Tobacco Use Status: Former Tobacco user Quit Date: 1979 Years Smoked: 10 +/- Current occupational status: retired Physical Exam Vital Signs: Last Vital Signs Pulse 56 02/25/23 11:09 BP 158/83 H 02/25/23 11:09 BMI result Body Mass Index 45.5 Assessment & Plan Assessment & Plan (1) Crohn's colitis: Code(s): K50.10 - Crohn's disease of large intestine without complications (2) Bilateral hand pain: Comment: ? carpal tunnel ? cervical spondylosis Code(s): M79.641 - Pain in right hand; M79.642 - Pain in left hand Coding Level of Care Code Est Pt Level 3 (58526) Diagnoses Crohn's colitis K50.10 Bilateral hand pain M79.641; M79.642
[2023-02-25 11:09] VITALS: BP 158/83; PULSE 56; BMI 45.5
== END 2023-02-25 11:25 | disposition home or self-care (01) ==
PROVIDERS: PCP Internal Medicine; Visit Provider Internal Medicine Gastroenterology
DX: K50.10 Crohn's disease of large intestine without complications (principal); M79.641 Pain in right hand; M79.642 Pain in left hand
CPT/HCPCS: 99213

== ENCOUNTER → 2023-02-25 11:04 | Outpatient (BNVA) | payer MEDICARE, MEDICAID, SELFPAY | PROVIDERS: PCP Internal Medicine; Visit Provider Internal Medicine Gastroenterology | DX: K50.10 Crohn's disease of large intestine without complications (principal); M79.641 Pain in right hand; M79.642 Pain in left hand | CPT/HCPCS: 99212 ==

== ENCOUNTER 2023-02-28 09:28 | Outpatient (AMB) | payer MEDICARE, MEDICAID, SELFPAY ==
--- NOTE | 2023-02-28 09:47 | A.OFFVIS_ITS ---
Intake Vital Signs 02/28/23 09:53 Height 5 ft 11 in Weight 326 lb BMI 45.5 Intake Visit Reasons: New PT - Bilteral Hand EMG Review 02/17/23 Intake Note: Juventino a 67 year old right hand dominant male presents today as a new patient for an evaluation of bilateral hand. Patient reports pain, numbness, and tingling has been present for about a year, with his right hand being the worse. 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 His pain becomes worse with the use of hands. No previous tx. Allergies tramadol Allergy (Mild, Verified 02/28/23 09:53) Dizziness HPI New PT - Bilteral Hand EMG Review 02/17/23 HPI Details 67-year-old right hand dominant male who presents to the office today for evaluation of bilateral hand. He states he has pain, numbness and tingling for about an year which is worse in his right hand. His pain comes with gripping, grabbing or picking throughout the finger and she frequently drop items. His pain is aggravated with overuse and he wakes up at night due to the pain. He takes Tylenol for his pain with no relief. He has not had any previous treatment. [facility] Medical History Cervical spondylosis Epidermal cyst Essential hypertension Chronic right heart failure Crohn's disease TIFFANY on CPAP Morbid obesity Surgical History History of excision of epidermal inclusion cyst (~03/27/21) History of esophagogastroduodenoscopy (EGD) Status post surgical atrial septal defect closure History of colonoscopy Family History Father Hx of Crohn's disease Cancer Mother Hx of type 2 diabetes mellitus Social History (Updated 02/28/23 @ 09:50 by GILMA Go) Alcohol intake: never Patient Tobacco Use Status: Former Tobacco user Quit Date: 1979 Smoked: 10 +/- Current occupational status: retired Current occupation: right hand dominant Review of Systems Const All systems reviewed & are unremarkable except as noted in HPI and below Physical Exam Vital Signs: BMI result Body Mass Index 45.5 Const General: cooperative, healthy appearing, comfortable, no acute distress, well developed and alert Orientation/consciousness: patient oriented x3 HEENT Head: Yes normal to inspection, Yes normocephalic and Yes atraumatic Eyes General: appearance normal, both eyes and all related structures Resp Effort & Inspection: normal respiratory effort and able to speak in complete sentences Cardio Rate: regular rate Peripheral pulses: Peripheral pulses 2+ throughout GI Palpation (GI): Soft to palpation Skin Lesions: no lesions Rashes: no rashes Neuro General: patient oriented x3 Extrem Other: Bilateral wrist: Normal to inspection. Tenderness over the carpal canal. Numbness and tingling over the median nerve distribution of the right hand. Able to make a full fist and fully extend all fingers. Positive Tinel's. Results Reviewed Results Reviewed: EMG/NCS 02/17/23 IMPRESSION: 1. This is an abnormal study. 2. There is electrodiagnostic evidence for bilateral moderate-severe median neuropathy at the wrist, consistent with carpal tunnel syndrome. 3. There is electrodiagnostic evidence for bilateral ulnar neuropathy, most likely at the elbow. 4. There is no electrodiagnostic evidence for brachial plexopathy, or cervical radiculopathy. Assessment & Plan Assessment & Plan (1) Carpal tunnel syndrome on both sides: Code(s): G56.03 - Carpal tunnel syndrome, bilateral upper limbs (2) Cubital tunnel syndrome of both upper extremities: Code(s): G56.23 - Lesion of ulnar nerve, bilateral upper limbs Plan We discussed options which include CTR with possible cubital tunnel release. I would like him to see Dr. Colin to determine whether or not he would benefit from cubital tunnel release. He is in agreement with this. In the meantime, he will continue to wear the night splint and follow-up as planned. Patient Instructions: Scribed for Eileen Foster PA-C, by Greg Pineda medical coding manager, on 02/28/2023 at 9:45 AM EST. Eileen Crowe PA-C, have personally reviewed and agree with the information entered by the scribe. Coding Level of Care Code New Pt Level 3 (90318) Diagnoses Carpal tunnel syndrome on both sides G56.03 Cubital tunnel syndrome of both upper extremities G56.23
[2023-02-28 09:53] VITALS: BMI 45.5
== END 2023-02-28 10:16 | disposition home or self-care (01) ==
PROVIDERS: PCP Internal Medicine; Visit Provider Physician Assistant
DX: G56.03 Carpal tunnel syndrome, bilateral upper limbs (principal); G56.23 Lesion of ulnar nerve, bilateral upper limbs
CPT/HCPCS: 99203

== ENCOUNTER → 2023-02-28 09:28 | Outpatient (BNVA) | payer MEDICARE, MEDICAID, SELFPAY | PROVIDERS: PCP Internal Medicine; Visit Provider Physician Assistant ==

== ENCOUNTER 2023-03-08 08:42 | Outpatient (REF) | payer MEDICARE, MEDICAID, SELFPAY | END 2023-03-08 08:43 | disposition home or self-care (01) | LOC: HO.MDS 08:42 | PROVIDERS: Visit Provider Internal Medicine Gastroenterology | DX: K50.10 Crohn's disease of large intestine without complications (principal) | CPT/HCPCS: 96365; J3380 ==

== ENCOUNTER 2023-03-15 12:00 | Outpatient (AMB) | payer MEDICARE, MEDICAID, SELFPAY ==
--- NOTE | 2023-03-15 12:02 | A.OFFVIS_ITS ---
Intake Vital Signs 03/15/23 12:07 Height 5 ft 11 in Weight 326 lb BMI 45.5 Intake Visit Reasons: OV-CTS - Discuss Surgery per TM Intake Note: Hector is a 67 year old right hand dominant male who presents today to discuss carpal tunnel and possible cubital tunnel release. Patient reprorts that neither one arm is worse than the other. Allergies tramadol Allergy (Mild, Verified 03/15/23 12:05) Dizziness HPI OV-CTS - Discuss Surgery per TM HPI Details Hector is a 67 year old right hand dominant man who presents to discuss treatment for his bilateral carpal tunnel & cubital tunnel syndrome. He complains of pain, numbness, and tingling in bilateral hands. He says both sides are equally bothersome. Symptoms of numbness are constant but worse at night. He says the right small finger also feels numb He has pain with gripping or grasping motions, along with stiffness. he has difficulty making a fist or using his hands for daily activities. He has hand arthritis and Crohn's disease. He is on Entyvio and Methotrexate. He is a Diabetic, which he says is well-controlled, has sleep apnea, and Afib and heart failure. He is on Eliquis. he has a hx of a childhood heart defect and a hx of cardiac surgery as a child. [facility] Medical History Cervical spondylosis Epidermal cyst Essential hypertension Chronic right heart failure Crohn's disease TIFFANY on CPAP Morbid obesity Surgical History History of excision of epidermal inclusion cyst (~03/27/21) History of esophagogastroduodenoscopy (EGD) Status post surgical atrial septal defect closure History of colonoscopy Family History Father Hx of Crohn's disease Cancer Mother Hx of type 2 diabetes mellitus Social History Alcohol intake: never Patient Tobacco Use Status: Former Tobacco user Quit Date: 1979 Years Smoked: 10 +/- Current occupational status: retired Current occupation: right hand dominant Review of Systems Const All systems reviewed & are unremarkable except as noted in HPI and below Physical Exam Vital Signs: BMI result Body Mass Index 45.5 Const General: cooperative, healthy appearing and no acute distress Orientation/consciousness: patient oriented x3 HEENT Head: Yes normocephalic and Yes atraumatic Eyes EOM: EOMs intact bilaterally Resp Effort & Inspection: normal respiratory effort and able to speak in complete sentences Cardio Jugular venous distension: no JVD Skin General skin exam: turgor normal Rashes: no rashes Neuro General: patient oriented x3 Extrem Other: Evaluation of BilateralUpper Extremity: The patient is alert, oriented, and in no acute distress Neuro: Dense numbness in the median nerve distribution bilaterally. Decreased sensation in the right small finger today. Normal sensation in the left ulnar nerve distribution No thenar or intrinsic wasting Good APB muscle belly firing and good finger cross Vascular: Cap refill brisk ROM: He can fully extend all his digits and get his hands flat on a table He had significant stiffness in his fingers today, with minimal flexion at the PIP & DIP joints When asked to make a fist, he could initially bring his fingertips ~10cm from his palm We worked on ROM exercises today in clinic for more than 15 minutes Before leaving he was able to bring his right hand fingertips to ~2-3cm from the palm, except for the ring finger which could be brought down tighter but with visible locking. He says her left hand fingertips could be brought down to ~4-5cm from her palm, except for his ring finger which could be brought down tighter to ~1-2cm from his palm. 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 General: No Ecchymosis. No Erythema or evidence of infection. Nerve Conduction Study: IMPRESSION: 1. This is an abnormal study. 2. There is electrodiagnostic evidence for bilateral moderate-severe median neuropathy at the wrist, consistent with carpal tunnel syndrome. 3. There is electrodiagnostic evidence for bilateral ulnar neuropathy, most likely at the elbow. 4. There is no electrodiagnostic evidence for brachial plexopathy, or cervical radiculopathy. Thank you for your kind referral. Dede Mullins MD, SUSANNE 02/17/23 Psych Appearance: grossly normal Affect: normal affect Attitude: cooperative Office Procedures Fracture Care Details: No fracture, manual therapy greater than 15 minutes [id number] Fracture Billing Code: Fracture Billing Code Assessment & Plan Assessment & Plan (1) Cubital tunnel syndrome of both upper extremities: Code(s): G56.23 - Lesion of ulnar nerve, bilateral upper limbs (2) Carpal tunnel syndrome on both sides: Code(s): G56.03 - Carpal tunnel syndrome, bilateral upper limbs (3) Persistent atrial fibrillation: Code(s): I48.19 - Other persistent atrial fibrillation (4) Diabetes: Code(s): E11.9 - Type 2 diabetes mellitus without complications (5) Arthritis associated with inflammatory bowel disease: Code(s): K63.9 - Disease of intestine, unspecified; M07.60 - Enteropathic arthropathies, unspecified site (6) Stiffness of joints of both hands: Code(s): M25.641 - Stiffness of right hand, not elsewhere classified; M25.642 - Stiffness of left hand, not elsewhere classified Plan Assessment & Plan: 1. Right Carpal tunnel syndrome, moderate-severe With dense numbness 2. Right ring finger trigger finger 3. Right Cubital tunnel syndrome Symptoms intermittent, but daily, worse at night With decreased subjective sensation of the small finger today in clinic. I educated him about this condition I discussed operative and non-operative treatment options The patient would like to proceed with surgery, beginning with the right side The risks and benefits of operative treatment were discussed with the patient and the patient wishes to proceed with surgery. These risks include, but are not limited to risk of damage to blood vessels, nerves, tendons, infection, rec urrence, incomplete relief of preoperative symptoms, persistent pain, possible need for further surgery and the risks associated with regional blocks and anesthesia. The plan is to take the patient to the operating room sometime in the next few weeks for the following procedures: 1. Right Carpal tunnel release, under general 2. Right ring finger trigger release, under general 3. Right Cubital tunnel release vs transposition, under general All of the preoperative paperwork including the consent was filled out today. All the patient's questions were answered. The patient understands that they will be contacted by our stock parts inspector soon to schedule this procedure He denies asthma, lung, kidney issues He is a Diabetic, his most recent HgA1c was 4.8% on 12/14/22 He has a hx of Afib and is on Eliquis. He will need Cardiac clearance prior to surgery He has Crohn's disease, he takes Methotrexate and Entyvio. 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 Bilateral hand stiffness Significant stiffness in multiple PIP & DIP joints He has difficulties making a fist or grasping objects We worked on manual therapy and range of motion exercises for more than 15 minutes today in clinic. He is going to work on these exercises at least 20 times a day while at home. I ordered OT hand therapy to work on ROM exercises, strengthening and improving function I discussed the importance of improving his motion prior to surgery 5. Left Carpal tunnel syndrome, moderate-severe With dense numbness 6. Left Cubital tunnel syndrome Normal sensation today in clinic Please note that greater than 40 minutes was spent with this patient going over the history, evaluating the patient and radiographs, formulating possible treatment options, discussing them with the patient, and documenting the visit. Scribed for Casandra Colin MD by Jaycob Gruber, medical billing and coding instructor, on 03/15/23 at 1:00 PM, EST. Orders: Orders OT Evaluation and Treatment Today G56.23 - Lesion of ulnar nerve, bilateral upper limbs, M25.641 - Stiffness of right hand, not elsewhere classified, M25.642 - Stiffness of left hand, not elsewhere classified Coding Level of Care Code New Pt Level 4 (94211) Diagnoses Cubital tunnel syndrome of both upper extremities G56.23 Carpal tunnel syndrome on both sides G56.03 Persistent atrial fibrillation I48.19 Diabetes E11.9 Arthritis associated with inflammatory bowel disease K63.9; M07.60 Stiffness of joints of both hands M25.641; M25.642 CPT Codes Fracture Care - Fracture Billing Code: Fracture Billing Code ([id number])
[2023-03-15 12:07] VITALS: BMI 45.5
== END 2023-03-15 13:11 | disposition home or self-care (01) ==
PROVIDERS: PCP Internal Medicine; Visit Provider Orthopaedic Surgery
DX: G56.23 Lesion of ulnar nerve, bilateral upper limbs (principal); G56.03 Carpal tunnel syndrome, bilateral upper limbs; M65.341 Trigger finger, right ring finger; E11.9 Type 2 diabetes mellitus without complications; K63.9 Disease of intestine, unspecified; M07.60 Enteropathic arthropathies, unspecified site; M25.641 Stiffness of right hand, not elsewhere classified; M25.642 Stiffness of left hand, not elsewhere classified
CPT/HCPCS: 99215

== ENCOUNTER → 2023-03-15 12:00 | Outpatient (BNVA) | payer MEDICARE, MEDICAID, SELFPAY | PROVIDERS: PCP Internal Medicine; Visit Provider Orthopaedic Surgery | DX: G56.23 Lesion of ulnar nerve, bilateral upper limbs (principal); G56.03 Carpal tunnel syndrome, bilateral upper limbs; M25.641 Stiffness of right hand, not elsewhere classified; M25.642 Stiffness of left hand, not elsewhere classified; M07.60 Enteropathic arthropathies, unspecified site; I48.19 Other persistent atrial fibrillation; E11.9 Type 2 diabetes mellitus without complications; K63.9 Disease of intestine, unspecified | CPT/HCPCS: 99212 ==

== ENCOUNTER 2023-04-04 10:10 | Outpatient (AMB) | payer MEDICARE, MEDICAID, SELFPAY ==
[2023-04-04 10:12] VITALS: BP 140/62; PULSE 66; BMI 45.2
--- NOTE | 2023-04-04 10:12 | MHC.OFFVIS ---
Intake Vital Signs 04/04/23 10:12 Height 5 ft 11 in Weight 324 lb 1.272 oz BMI 45.2 BP 140/62 H Blood Pressure Location Lt brachial Position Sitting Pulse 66 Intake Visit Reasons: 6 mth f/up/ preop Dr. Colin Allergies tramadol Allergy (Mild, Verified 04/04/23 10:15) Dizziness Medication List - Last Reconciled 04/04/23 by Sathya Chun MD acetaminophen ER (Tylenol Arthritis Pain) 1,300 mg PO Q8H amlodipine 10 mg PO DAILY apixaban (Eliquis) 5 mg PO BID ferrous sulfate 324 mg PO DAILY folic acid 1 mg PO DAILY 90 days furosemide 80 mg PO QAM insulin syringe,safetyneedle (Assure ID Insulin Safety) 25 mg methotrxate weekly insulin syringe-needle U-100 (BD Veo Insulin Syringe Ultra-Fine) As directed losartan 100 mg PO DAILY methotrexate sodium 25 mg subcut QWEEK multivitamin 1 tab PO DAILY pantoprazole 40 mg PO DAILY 90 days phvfhbx-mgfd-omial-oreg-capryl 100 mg-150 mg- 50 mg-150 mg 1 cap PO DAILY vedolizumab 300 mg IV Q8W PFSH Medical History Cervical spondylosis Epidermal cyst Essential hypertension Chronic right heart failure Crohn's disease TIFFANY on CPAP Morbid obesity Surgical History History of excision of epidermal inclusion cyst (~03/27/21) History of esophagogastroduodenoscopy (EGD) Status post surgical atrial septal defect closure History of colonoscopy Family History Father Hx of Crohn's disease Cancer Mother Hx of type 2 diabetes mellitus Social History Alcohol intake: never Patient Tobacco Use Status: Former Tobacco user Quit Date: 1979 Years Smoked: 10 +/- Current occupational status: retired Current occupation: right hand dominant Review of Systems ENT Reports dizziness Card Denies chest pain, Denies chest pain at rest, Denies chest pain with activity, Denies rapid heart rate, Denies pedal edema, Denies edema, Denies leg edema, Denies lightheadedness, Denies palpitations, Denies dyspnea, Denies dyspnea on exertion and Denies orthopnea Resp Denies cough, Denies dyspnea and Denies dyspnea on exertion GI Denies hematochezia and Denies change in stool character Musc Denies abnormal gait, Reports limited range of motion, Reports muscle cramps, Denies muscle weakness, Denies numbness, Denies radiating pain into limb, Denies stiffness and Denies tingling Neuro Denies abnormal gait, Reports dizziness, Denies numbness and Denies tingling Endo Denies palpitations Physical Exam Vital Signs: Last Vital Signs Pulse 66 04/04/23 10:12 BP 140/62 H 04/04/23 10:12 BMI result Body Mass Index 45.2 Coding
--- NOTE | 2023-04-04 10:12 | MHC.OFFVIS ---
Intake Vital Signs 04/04/23 10:12 Height 5 ft 11 in Weight 324 lb 1.272 oz BMI 45.2 BP 140/62 H Blood Pressure Location Lt brachial Position Sitting Pulse 66 Intake Visit Reasons: 6 mth f/up/ preop Dr. Colin Authorization Specialist Required: No Paid Search Manager: Paid Search Manager Present Allergies tramadol Allergy (Mild, Verified 04/04/23 10:15) Dizziness Medication List - Last Reconciled 04/04/23 by Sathya Chun MD acetaminophen ER (Tylenol Arthritis Pain) 1,300 mg PO Q8H amlodipine 10 mg PO DAILY apixaban (Eliquis) 5 mg PO BID ferrous sulfate 324 mg PO DAILY folic acid 1 mg PO DAILY 90 days furosemide 80 mg PO QAM insulin syringe,safetyneedle (Assure ID Insulin Safety) 25 mg methotrxate weekly insulin syringe-needle U-100 (BD Veo Insulin Syringe Ultra-Fine) As directed losartan 100 mg PO DAILY methotrexate sodium 25 mg subcut QWEEK multivitamin 1 tab PO DAILY pantoprazole 40 mg PO DAILY 90 days hrqxbsl-qejd-knybe-oreg-capryl 100 mg-150 mg- 50 mg-150 mg 1 cap PO DAILY vedolizumab 300 mg IV Q8W HPI HPI Comments History of Present Illness Details Hector is here for follow-up for various issues including chronic right heart failure, atrial fibrillation on others. He also needs preoperative evaluation for carpal tunnel surgery. Overall, he states he is generally doing okay. He does not do much at baseline because of arthritic symptoms but a within limits of his activity, no clear angina. Some shortness of breath but he has been like this for a long time and lot of it is from weight. [facility] Medical History (Reviewed 03/15/23 @ 12:07 by Jeane Sheikh [facility]) Cervical spondylosis Epidermal cyst Essential hypertension Chronic right heart failure Crohn's disease TIFFANY on CPAP Morbid obesity Surgical History History of excision of epidermal inclusion cyst (~03/27/21) History of esophagogastroduodenoscopy (EGD) Status post surgical atrial septal defect closure History of colonoscopy Family History Father Hx of Crohn's disease Cancer Mother Hx of type 2 diabetes mellitus Social History Alcohol intake: never Patient Tobacco Use Status: Former Tobacco user Quit Date: 1979 Years Smoked: 10 +/- Current occupational status: retired Current occupation: right hand dominant Review of Systems ENT Reports dizziness Card Denies chest pain, Denies chest pain at rest, Denies chest pain with activity, Denies rapid heart rate, Denies pedal edema, Denies edema, Denies leg edema, Denies lightheadedness, Denies palpitations, Denies dyspnea, Denies dyspnea on exertion and Denies orthopnea Resp Denies cough, Denies dyspnea and Denies dyspnea on exertion GI Denies hematochezia and Denies change in stool character Musc Denies abnormal gait, Reports limited range of motion, Reports muscle cramps, Denies muscle weakness, Denies numbness, Denies radiating pain into limb, Denies stiffness and Denies tingling Neuro Denies abnormal gait, Reports dizziness, Denies numbness and Denies tingling Endo Denies palpitations Physical Exam Vital Signs: Last Vital Signs Pulse 66 04/04/23 10:12 BP 140/62 H 04/04/23 10:12 BMI result Body Mass Index 45.2 Const General: comfortable and no acute distress Orientation/consciousness: patient oriented x3 HEENT Other: Unremarkable Head: Yes normal to inspection Neck Neck: Yes normal visual inspection Chest Chest palpation & inspection: normal inspection of the chest Resp Auscultation: clear to auscultation bilaterally Cardio Palpation: normal PMI Heart sounds: S1 normal heart sound present, S2 normal heart sound present, no gallops, no murmurs and no rubs GI Palpation (GI): Soft to palpation Back/Spine/Pelvis Other: unremarkable Skin General skin exam: no rashes or lesions noted Neuro General: patient oriented x3 Extrem General: Yes normal to inspection Psych Mental Status: mental status grossly normal Office Procedures EKG Details: EKG with atrial fibrillation at a rate of 66/Min; nonspecific interventricular conduction defect. [id number], Complete Assessment & Plan Assessment & Plan (1) Persistent atrial fibrillation: Code(s): I48.19 - Other persistent atrial fibrillation Plan: Not on rate control medications due to conduction system disease. Otherwise, on anticoagulation. (2) Chronic right heart failure: Code(s): I50.812 - Chronic right heart failure Plan: Stable, on diuretics. (3) Status post surgical atrial septal defect closure: Code(s): Z98.890 - Other specified postprocedural states Plan: In the 1960s, he had ASD closure and in the 70s, pulmonary valvulotomy. No recent concerns. (4) Essential hypertension: Code(s): I10 - Essential (primary) hypertension Plan: Stable. No changes. (5) TIFFANY on CPAP: Code(s): G47.33 - Obstructive sleep apnea (adult) (pediatric); Z99.89 - Dependence on other enabling machines and devices Plan: Continue CPAP. (6) Preoperative cardiovascular examination: Code(s): Z01.810 - Encounter for preprocedural cardiovascular examination Plan: Last echocardiogram with LVEF of 60-65%. Dilated atria. No significant valve issues. Obtain stress test. If able, consider regional nerve block for surgery. Plan Discussed with significant other who came for appointment. Orders: Orders NM cardiolite stress test Today I50.812 - Chronic right heart failure, R07.2 - Precordial pain CA stress test Today I50.812 - Chronic right heart failure, R07.2 - Precordial pain Coding Level of Care Code Est Pt Level 4 (45516) Diagnoses Persistent atrial fibrillation I48.19 Chronic right heart failure I50.812 Status post surgical atrial septal defect closure Z98.890 Essential hypertension I10 TIFFANY on CPAP G47.33; Z99.89 Preoperative cardiovascular examination Z01.810 CPT Codes EKG - CPT: [id number], Complete ([id number])
== END 2023-04-04 10:46 | disposition home or self-care (01) ==
PROVIDERS: PCP Internal Medicine; Visit Provider Internal Medicine
DX: I48.19 Other persistent atrial fibrillation (principal); I50.812 Chronic right heart failure; Z98.890 Other specified postprocedural states; I10 Essential (primary) hypertension; G47.33 Obstructive sleep apnea (adult) (pediatric); Z99.89 Dependence on other enabling machines and devices; Z01.810 Encounter for preprocedural cardiovascular examination
CPT/HCPCS: 93010; 99214

== ENCOUNTER → 2023-04-04 10:10 | Outpatient (BNVA) | payer MEDICARE, MEDICAID, SELFPAY | PROVIDERS: PCP Internal Medicine; Visit Provider Internal Medicine | DX: Z01.810 Encounter for preprocedural cardiovascular examination (principal); I50.812 Chronic right heart failure; I48.19 Other persistent atrial fibrillation; I10 Essential (primary) hypertension; G47.33 Obstructive sleep apnea (adult) (pediatric); Z98.890 Other specified postprocedural states; Z99.89 Dependence on other enabling machines and devices | CPT/HCPCS: 93005; 99212 ==

== ENCOUNTER 2023-04-05 13:08 | Outpatient (AMB) | payer MEDICARE, MEDICAID, SELFPAY ==
--- NOTE | 2023-04-05 13:09 | A.OFFVIS_ITS ---
Intake Vital Signs 04/05/23 13:10 Height 5 ft 11 in Weight 325 lb BMI 45.3 BP 132/64 Blood Pressure Location Rt brachial Position Sitting Respiration 16 Pulse 67 Pulse Source Pulse Oximeter Pulse Oximetry (%) 96 Oxygen Delivery Method Room Air Intake Visit Reasons: 2 mo F/u - Paresthesia of skin - conf t/CW Intake Note: Pt presents to the office for a 2 month follow up for paresthesia of the skin. He reports his condition is unchanged since last visit. He is scheduled for surgery on May with Dr. Colin, hand surgeon. R And D Lab Technician Required: No Allergies tramadol Allergy (Mild, Verified 04/05/23 13:10) Dizziness HPI HPI Comments History of Present Illness Details 67y/o male comes for follow up of tingli ng and numbness in hands. His EMG was c/w Tim carpal tunnel syndrome severe and left ulnar neuropathy. He is scheduled for surgery in May 2023. He is still doing OT MRI C spine shows mild DJD Previous History-It started about 1 year ago and has progressed. iT started with tingling and now has numbness. He also has pain and is usually after activity. He sleeps with wrist splints. Inspite of the splints he wakes up in the middle of the night with tingling and pain Any activity with hands worsens. He sees a chiropractor for his neck.He has cervical spondylosis and his last MRI was 2 years ago. He denies nay urinary issues, has mild gait problems b/o arthritis. He has TIFFANY and is on CPAP. [facility] Medical History Cervical spondylosis Epidermal cyst Essential hypertension Chronic right heart failure Crohn's disease TIFFANY on CPAP Morbid obesity Surgical History History of excision of epidermal inclusion cyst (~03/27/21) History of esophagogastroduodenoscopy (EGD) Status post surgical atrial septal defect closure History of colonoscopy Family History Father Hx of Crohn's disease Cancer Mother Hx of type 2 diabetes mellitus Alcohol intake: never Patient Tobacco Use Status: Former Tobacco user Quit Date: 1979 Years Smoked: 10 +/- Current occupational status: retired Current occupation: right hand dominant Review of Systems Neuro Reports Sensory deficit (Neuro) Physical Exam Vital Signs: Last Vital Signs Pulse 67 04/05/23 13:10 Resp 16 04/05/23 13:10 BP 132/64 04/05/23 13:10 Pulse Ox 96 04/05/23 13:10 Oxygen Delivery Method Room Air 04/05/23 13:10 BMI result Body Mass Index 45.3 Const General: cooperative, healthy appearing, comfortable and no acute distress Nutritional Appearance: obese Orientation/consciousness: patient oriented x3 Eyes Pupils: Equal, round and reactive pupils present Neuro Other: mils weakness of hand grasps General: patient oriented x3, tone normal, moves all extremities and no focal motor deficits Cranial nerves: Yes Facial sensation intact/muscles of mastication intact, Yes Equal, round and reactive pupils present, Yes Bilaterally intact EOM present, Yes Nystagmus not present, Yes Normal facial strength present, Yes Midline tongue present and Yes Symmetric palate elevation present Cognition (Neuro): normal cognition Gait exam (Neuro): Antalgic gait present Motor exam (neuro): 5/5 motor strength present throughout and Normal motor muscle tone present throughout Sensory Exam: Sensory deficit (Neuro) Coordination: [id number] test normal Assessment & Plan Assessment & Plan (1) Carpal tunnel syndrome on both sides: Code(s): G56.03 - Carpal tunnel syndrome, bilateral upper limbs (2) Cubital tunnel syndrome of both upper extremities: Code(s): G56.23 - Lesion of ulnar nerve, bilateral upper limbs Plan Reviewed MRI and EMG results He is scheduled for surgery in May 2023. He will call with any residual or worsening symptoms Coding Level of Care Code Est Pt Level 4 (58377) Diagnoses Carpal tunnel syndrome on both sides G56.03 Cubital tunnel syndrome of both upper extremities G56.23
[2023-04-05 13:10] VITALS: BP 132/64; PULSE 67; RESP 16; O2SAT 96; BMI 45.3
== END 2023-04-05 13:29 | disposition home or self-care (01) ==
PROVIDERS: PCP Internal Medicine; Visit Provider Psychiatry & Neurology Neurology
DX: G56.03 Carpal tunnel syndrome, bilateral upper limbs (principal); G56.23 Lesion of ulnar nerve, bilateral upper limbs
CPT/HCPCS: 99214

== ENCOUNTER → 2023-04-05 13:08 | Outpatient (BNVA) | payer MEDICARE, MEDICAID, SELFPAY | PROVIDERS: PCP Internal Medicine; Visit Provider Psychiatry & Neurology Neurology | DX: G56.03 Carpal tunnel syndrome, bilateral upper limbs (principal); G56.23 Lesion of ulnar nerve, bilateral upper limbs | CPT/HCPCS: 99212 ==

== ENCOUNTER 2023-04-19 11:30 | Outpatient (RCR) | payer MEDICARE, MEDICAID, SELFPAY ==
--- NOTE | 2023-03-17 13:07 | MHC.OT.EP ---
[address] [phone] Occupational Therapy Plan of Care Patient Name: Hector Colon Date of Evaluation: 03/17/23 Diagnosis: Bilateral hand stiffness Cubital tunnel syndrome bilaterally Pain Location: Pain right hand Current: 3/10 pain and tingling Worst: 9/10 Pain left hand Current: 3/10 pain and tingling Worst: 9/10 Pain Score: 3 Pain Scale Used: Numeric (0 - 10) Aggravating Factors: Hurst worst at the end of the day Forceful grasp, opening jars Alleviating Factors: Tylenol, heat Assessment: Pt is a 67 y/o male referred to OT w/ bilateral hand pain and stiffness. He met with Dr. Colin on 03/15 and is planning on having CTR and cubital tunnel release in May. Pt presents with significant PIP and DIP joint stiffness bilaterally, able to make 1/2 fist actively, which did improve post session following MH and PROM. Symptoms of numbness are along the median nerve distribution, constant but worse at night. He says the right small finger also feels numb. Pain is exacerbated with grasping motions and he has difficulty using his hands for daily activities. Gross grasp is 20# on the R and 15# on the left. A 72% limitation is reported per the Quick DASH assessment. Pt would benefit from skilled OT services to address noted barriers and normalize hand function in preparation for surgery next month. 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 Thank you once again for your referral.
--- NOTE | 2023-04-19 15:22 | MHC.OT.DC ---
[address] [phone] F: [phone] Occupational Therapy Discharge Note Patient Name: Hector Colon Provider: Casandra Colin Diagnosis: Bilateral hand stiffness Cubital tunnel syndrome bilaterally Date of Evaluation: 03/17/23 Date of Discharge: 04/19/23 Treatments to Date: 6 Discharge Status: Improved Function Independent with HEP Discharge Summary: Andre was seen for re-evaluation this date. Pt has made some gains in OT although believes he has reached a plateau in therapy. With increased time and effort, able to passively touch tip to palm all digits after modalities and stretching. Encouraged pt. to continue with thermal modalities and stretching at home. Pain on right is improving, left hand/wrist pain persists. Pt is awaiting bilateral CTR surgeries starting in May. Pt remains limited by significant PIP tightness and arthritic pain. Gross grasp on the R improved to 25#. At this time, pt. is IND with nerve glides, AROM exercises and strengthening to tolerance and is in agreement with discharge to [facility]. Electronically Signed By: Jacqueline Irwin MS OTR/L Reviewed/agree with student documentation: Therapist: Please Sign and return to therapist, thank you for your referral.
== END 2023-04-19 15:25 | disposition home or self-care (01) ==
LOC: HO.OT 11:30
PROVIDERS: PCP Internal Medicine; Visit Provider Orthopaedic Surgery
DX: M25.641 Stiffness of right hand, not elsewhere classified (principal); M25.642 Stiffness of left hand, not elsewhere classified; G56.23 Lesion of ulnar nerve, bilateral upper limbs
CPT/HCPCS: 97035; 97110; 97140; 97165

== ENCOUNTER 2023-05-03 08:44 | Outpatient (REF) | payer MEDICARE, MEDICAID, SELFPAY | END 2023-05-03 08:45 | disposition home or self-care (01) | LOC: HO.MDS 08:44 | PROVIDERS: Visit Provider Internal Medicine Gastroenterology | DX: K50.10 Crohn's disease of large intestine without complications (principal); Z11.1 Encounter for screening for respiratory tuberculosis | CPT/HCPCS: 36415; 86481; 96365; J3380 ==

== ENCOUNTER 2023-05-04 10:15 | Outpatient (REF) | payer MEDICARE, MEDICAID, SELFPAY ==
[2023-05-04 10:23] LABS: MANUAL DIFF FLAG NO
[2023-05-04 10:43] LABS: Basophils Percent Auto 0.8 % (0-2); Eosinophils Absolute Auto 0.1 X10*3/uL (0.0-0.4); Eosinophils Percent Auto 2.1 % (0-4); Hemoglobin 8.8 g/dl (14.0-18.0); Imm Gran Abs Auto 0.09 X10*3/uL (0.00-0.03); Imm Gran Pct Auto 1.9 % (0.0-0.4); Lymphocytes Absolute Auto 0.8 X10*3/uL (1.2-4.9); Lymphocytes Percent Auto 16.2 % (20-40); Mean Corpuscular HGB Conc 32.6 g/dl (31.0-36.0); Mean Corpuscular Hemoglobin 28.6 pg (27.0-33.0); Mean Corpuscular Volume 87.7 fL (80.0-98.0); Mean Platelet Volume 10.9 fL (9.4-12.4); Monocytes Absolute Auto 0.6 X10*3/uL (0.1-1.2); Monocytes Percent Auto 12.2 % (2-11); Neutrophils Absolute Auto 3.2 x10*3/uL (2.0-8.3); Neutrophils Percent Auto 66.8 % (45-73); Platelet Count 158 X10*3/uL (160-400); Red Blood Count 3.08 X10*6/uL (4.60-5.80); Red Cell Distribution Width 20.7 % (11.0-16.0); White Blood Count 4.8 X10*3/uL (4.8-10.8)
[2023-05-04 10:59] LABS: Alanine Aminotransferase 15 U/L (0-40); Albumin Level 4.1 g/dL (3.5-5.0); Alkaline Phosphatase 75 U/L (39-117); Anion Gap 16 (12-20); Aspartate Amino Transferase 26 U/L (5-37); Bilirubin Total 1.1 mg/dL (0.0-1.0); Blood Urea Nitrogen 30 mg/dL (9-16); C Reactive Protein 3.53 mg/dL (< or = 0.50); Calcium 9.3 mg/dL (8.4-10.2); Carbon Dioxide 22 mmol/L (22-29); Chloride 109 mmol/L (96-108); Estimated Glomerular Filt Rate 45; Glucose Random 148 mg/dL (60-115); Sodium 143 mmol/L (135-145); Uric Acid 12.9 mg/dL (3.4-7.0)
[2023-05-04 11:24] LABS: Erythrocyte Sedimentation Rate 38 MM/HR (0-15)
== END 2023-05-04 10:16 | disposition home or self-care (01) ==
LOC: HO.LAB 10:15
PROVIDERS: PCP Internal Medicine; Visit Provider Student in an Organized Health Care Education/Training Program
DX: K63.9 Disease of intestine, unspecified (principal); M07.60 Enteropathic arthropathies, unspecified site; M10.9 Gout, unspecified
CPT/HCPCS: 36415; 80053; 84550; 85025; 85652; 86140

== ENCOUNTER 2023-05-12 13:43 | Outpatient (AMB) | payer MEDICARE, MEDICAID, SELFPAY ==
--- NOTE | 2023-05-12 13:47 | MHC.OFFVIS ---
Intake Vital Signs 05/12/23 13:53 Height 5 ft 11 in Weight 322 lb 8.58 oz BMI 45.0 BP 144/66 H Blood Pressure Location Rt brachial Position Sitting Pulse 57 Pulse Source Pulse Oximeter Temp 97.3 F Temp Source Skin Pulse Oximetry (%) 98 Oxygen Delivery Method Room Air Intake Visit Reasons: Crohn's Colitis Intake Note: Pt last seen 01/11/23 presents today for follow up and test results Decorating And Assembly Supervisor Required: No Accompanied by: Spouse Allergies tramadol Allergy (Mild, Verified 05/12/23 13:53) Dizziness Medication List - Last Reconciled 05/12/23 by Viral Balderrama MD acetaminophen ER (Tylenol Arthritis Pain) 1,300 mg PO Q8H amlodipine 10 mg PO DAILY apixaban (Eliquis) 5 mg PO BID ferrous sulfate 324 mg PO DAILY folic acid 1 mg PO DAILY 90 days furosemide 80 mg PO QAM insulin syringe,safetyneedle (Assure ID Insulin Safety) 25 mg methotrxate weekly insulin syringe-needle U-100 (BD Veo Insulin Syringe Ultra-Fine) As directed losartan 100 mg PO DAILY methotrexate sodium 25 mg subcut QWEEK multivitamin 1 tab PO DAILY pantoprazole 40 mg PO DAILY 90 days cudmicr-umjj-pyawm-oreg-capryl 100 mg-150 mg- 50 mg-150 mg 1 cap PO DAILY vedolizumab 300 mg IV Q8W HPI HPI Comments History of Present Illness Details 68 yoM with a PMH of Crohns disease and IBD related arthritis who presents for follow-up. He states that he is doing about the same overall. Does not have any joint pain, swelling or erythema. His main symptoms include tingling and numbness of both hands. He was recently evaluated by Dr. Colin and he is scheduled for left upper extremity carpal tunnel release and ulnar nerve release versus transposition. Has not had any GI symptoms or bleeding. Compliant with methotrexate 25 mg subcutaneously weekly Per Dr. Manuel: Presents for follow-up of initial testing. At last visit, patient received a prednisone taper which he states significantly helped his joint pain. He has now completed the prednisone and some of his joint pain has returned. From last visit: Patient is currently on Entyvio for his Crohns. He was previously treated with Humira however did not respond to therapy in terms of his bowel disease or his joint pain. He reports a few years of joint pain mostly located in his hands, feet, and neck. He has swelling located in his MCPs and PIPs as well as nodules by both elbows. Has stiffness in his hands and is unable to make fists. States that his feet feel like he is walking on glass. He was given a prednisone taper by his PCP which helped immensely with his pain and swelling. He was also given Sulfasalazine by Dr Taylor in GI and took it for a couple of weeks but states that it did not help his joint pain. Unable to take NSAIDs as he is on Eliquis for Afib. No family history of RA, SLE, Crohns, Psoriasis or Psoriatic Arthritis. [facility] Medical History (Updated 05/12/23 @ 16:38 by Viral Balderrama MD) Cervical spondylosis Epidermal cyst Essential hypertension Chronic right heart failure Crohn's disease TIFFANY on CPAP Morbid obesity Surgical History History of excision of epidermal inclusion cyst (~03/27/21) History of esophagogastroduodenoscopy (EGD) Status post surgical atrial septal defect closure History of colonoscopy Family History Father Hx of Crohn's disease Cancer Mother Hx of type 2 diabetes mellitus Social History Alcohol intake: never Patient Tobacco Use Status: Former Tobacco user Quit Date: 1979 Years Smoked: 10 +/- Current occupational status: retired Current occupation: right hand dominant Review of Systems Neuro Reports Sensory deficit (Neuro) Physical Exam Vital Signs: Last Vital Signs Temp 97.3 F 05/12/23 13:53 Pulse 57 05/12/23 13:53 BP 144/66 H 05/12/23 13:53 Pulse Ox 98 05/12/23 13:53 Oxygen Delivery Method Room Air 05/12/23 13:53 BMI result Body Mass Index 45.0 Const General: cooperative, healthy appearing and comfortable Nutritional Appearance: obese morbidly obese Orientation/consciousness: patient oriented x3 Limitations: no limitations and ambulation with cane HEENT Head: Yes normocephalic and Yes atraumatic Resp Effort & Inspection: normal respiratory effort and able to speak in complete sentences Auscultation: clear to auscultation bilaterally Cardio Rate: regular rate Skin General skin exam: no rashes or lesions noted Neuro General: patient oriented x3 Sensory Exam: Sensory deficit (Neuro) Extrem Other: Bilateral diffuse MCP puffiness without tenderness Negative MCP squeeze test bilaterally No wrist swelling or tenderness bilaterally, no pain with full flexion and extension 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 For his Crohn's disease patient failed Humira even weekly dosing, he was switched to Entyvio with improvement. Currently on methotrexate 25 mg subQ once weekly. Upon evaluation today I do not see any signs of active inflammatory arthritis. Patient's symptoms are mostly due to carpal tunnel syndrome. Recent labs show slightly worsening anemia, new thrombocytopenia and some renal insufficiency. Methotrexate clearance might be reduced in the setting of renal insufficiency) Patient has not had any obvious symptoms suggestive of Crohn's flare-up recently Advised patient to hold methotrexate for 2 weeks and repeat blood work in 2 weeks (2) Carpal tunnel syndrome on both sides: Code(s): G56.03 - Carpal tunnel syndrome, bilateral upper limbs Plan: This seems to be his most bothersome symptom. As well as cubital tunnel. He is scheduled for surgery for left cubital tunnel and left carpal tunnel towards the end of May 2023 (3) Gouty tophi of joint: Code(s): M1A.9XX1 - Chronic gout, unspecified, with tophus (tophi) Plan: Patient has heart swellings just anterior to both elbows, I also believe he has tophi affecting his left ear Pinna. Surprisingly however he has never had any attacks suggestive of gout flare-ups. His uric acid level is significantly elevated. His mother had gout. I will reach out to Dr. Colin and ask her whether a biopsy can be pursued intraoperatively. If biopsy shows a confirms then patient will be a candidate for urate lowering therapy Plan I spent 35 minutes reviewing patient's chart, evaluating patient, ordering diagnostic workup, counseling patient and documenting in the chart Orders: Orders Comprehensive Met. Panel 2 Weeks K63.9 - Disease of intestine, unspecified, M07.60 - Enteropathic arthropathies, unspecified site C Reactive Protein 2 Weeks K63.9 - Disease of intestine, unspecified, M07.60 - Enteropathic arthropathies, unspecified site Immunofixation Pnl, Serum 2 Weeks K63.9 - Disease of intestine, unspecified, M07.60 - Enteropathic arthropathies, unspecified site Protein Electrophoresis, Serum 2 Weeks K63.9 - Disease of intestine, unspecified, M07.60 - Enteropathic arthropathies, unspecified site Transferrin 2 Weeks D64.9 - Anemia, unspecified Vitamin B12 and Folate 2 Weeks D64.9 - Anemia, unspecified Complete Blood Count Auto Diff 2 Weeks K63.9 - Disease of intestine, unspecified, M07.60 - Enteropathic arthropathies, unspecified site Erythrocyte Sedimentation Rate 2 Weeks K63.9 - Disease of intestine, unspecified, M07.60 - Enteropathic arthropathies, unspecified site Ferritin 2 Weeks D64.9 - Anemia, unspecified IRON PROFILE 2 Weeks D64.9 - Anemia, unspecified Medications: On Hold methotrexate sodium Hold Comment: Doctor's Order 25 mg subcut QWEEK 12 mL 0RF Coding Level of Care Code Est Pt Level 4 (26219) Diagnoses Arthritis associated with inflammatory bowel disease K63.9; M07.60 Carpal tunnel syndrome on both sides G56.03 Gouty tophi of joint M1A.9XX1
[2023-05-12 13:53] VITALS: BP 144/66; PULSE 57; TEMP 36.3; O2SAT 98; BMI 45.0
== END 2023-05-12 14:22 | disposition home or self-care (01) ==
PROVIDERS: PCP Internal Medicine; Visit Provider Student in an Organized Health Care Education/Training Program
DX: K63.9 Disease of intestine, unspecified (principal); M07.60 Enteropathic arthropathies, unspecified site; G56.03 Carpal tunnel syndrome, bilateral upper limbs; M1A.9XX1 Chronic gout, unspecified, with tophus (tophi)
CPT/HCPCS: 99214

== ENCOUNTER → 2023-05-12 13:43 | Outpatient (BNVA) | payer MEDICARE, MEDICAID, SELFPAY | PROVIDERS: PCP Internal Medicine; Visit Provider Student in an Organized Health Care Education/Training Program | DX: K63.9 Disease of intestine, unspecified (principal); M07.60 Enteropathic arthropathies, unspecified site; M1A.9XX1 Chronic gout, unspecified, with tophus (tophi); G56.03 Carpal tunnel syndrome, bilateral upper limbs | CPT/HCPCS: 99212 ==

== ENCOUNTER 2023-05-23 14:25 | Outpatient (AMB) | payer MEDICARE, MEDICAID, SELFPAY ==
[2023-05-23 14:37] VITALS: BP 124/70; PULSE 61; O2SAT 99; BMI 44.7
--- NOTE | 2023-05-23 14:37 | A.OFFVIS_ITS ---
Intake Vital Signs 05/23/23 14:37 Height 5 ft 11 in Weight 320 lb 12.361 oz BMI 44.7 BP 124/70 Blood Pressure Location Lt brachial Position Sitting Pulse 61 Pulse Source Pulse Oximeter Pulse Oximetry (%) 99 Oxygen Delivery Method Room Air Intake Visit Reasons: Pre-op visit (general surgery) Intake Note: pt is here for pre-op clearance Dr. Colin, carpel tunnel 06/13 and second one will be done 6 weeks afterwards. pt states he is feeling alright, no breathing issues. Stereotype Molder Required: No Allergies tramadol Allergy (Mild, Verified 05/23/23 14:55) Dizziness Medication List - Last Reconciled 05/23/23 by Cipriano Pearson MD acetaminophen ER (Tylenol Arthritis Pain) 1,300 mg PO Q8H amlodipine 10 mg PO DAILY apixaban (Eliquis) 5 mg PO BID ferrous sulfate 324 mg PO DAILY folic acid 1 mg PO DAILY 90 days furosemide 80 mg PO QAM insulin syringe,safetyneedle (Assure ID Insulin Safety) 25 mg methotrxate weekly insulin syringe-needle U-100 (BD Veo Insulin Syringe Ultra-Fine) As directed losartan 100 mg PO DAILY methotrexate sodium 25 mg subcut QWEEK multivitamin 1 tab PO DAILY pantoprazole 40 mg PO DAILY 90 days neacowt-ndkm-voahn-oreg-capryl 100 mg-150 mg- 50 mg-150 mg 1 cap PO DAILY vedolizumab 300 mg IV Q8W Do you need a note to return to daycare/school/sports/work: No HPI Pre-op visit (general surgery) HPI Details KARI Hernández IS 68 YEARS OLD VERY PLEASANT GENTLEMAN WITH MORBID OBESITY, AND SEVERE OBSTRUCTIVE SLEEP APNEA, HE IS ON BIPAP THERAPY AT NIGHT WHICH HE USES VERY REGULARLY. WITH FULL FACE MASK AND PRESSURE SETTING OF 24/20 CM. HE SLEEPS GOOD THROUGHOUT THE NIGHT, HE DOES TURN FROM 1 SIDE TO THE OTHER AND DURING THESE MANEUVERS THE MASK SLIPS OFF , CAUSING SOME AIR LEAK IS. ANYWAY HE USES THE MASK FOR MORE THAN 8 HOURS EVERY NIGHT. HE WAKES UP REFRESHED , REMAINS ALERT AND ENERGETIC DURING THE DAYTIME WITHOUT ANY DAYTIME SLEEPINESS. HE DOES NOT HAVE HISTORY OF COPD ARE BRONCHIAL ASTHMA, BUT DOES GET SHORT OF BREATH ON EXERTION BECAUSE OF HIS BEING OVERWEIGHT. HE IS SCHEDULED TO UNDERGO SURGERY FOR CARPAL TUNNEL SYNDROME, AND REQUIRES A PULMONARY CLEARANCE. [facility] Medical History (Updated 05/23/23 @ 15:20 by Cipriano Pearson MD) Restrictive lung disease Cervical spondylosis Epidermal cyst Essential hypertension Chronic right heart failure Crohn's disease TIFFANY on CPAP Morbid obesity Surgical History History of excision of epidermal inclusion cyst (~03/27/21) History of esophagogastroduodenoscopy (EGD) Status post surgical atrial septal defect closure History of colonoscopy Family History Father Hx of Crohn's disease Cancer Mother Hx of type 2 diabetes mellitus Social History Alcohol intake: never Patient Tobacco Use Status: Former Tobacco user Quit Date: 1979 Smoked: 10 +/- Current occupational status: retired Current occupation: right hand dominant Review of Systems Const All systems reviewed & are unremarkable except as noted in HPI and below Eyes Reports no additional complaints ENT Reports no additional complaints Card Denies chest pain, Denies irregular heart rhythm and Denies leg edema Resp Reports as per HPI GI Reports GI cramping and Reports heartburn Reports no additional complaints Musc Reports arthralgias (especially in wrist joints) Neuro Reports no additional complaints Psych Reports no additional complaints Physical Exam Vital Signs: Last Vital Signs Pulse 61 05/23/23 14:37 BP 124/70 05/23/23 14:37 Pulse Ox 99 05/23/23 14:37 Oxygen Delivery Method Room Air 05/23/23 14:37 BMI result Body Mass Index 44.7 Const General: comfortable, no acute distress, alert and awake Orientation/consciousness: patient oriented x3 HEENT Head: Yes normal to inspection General nose exam: No nasal polyps present and No nasal discharge present Face and sinus: Yes sinuses nontender Mouth: oropharynx normal Throat: Yes posterior oropharynx normal Eyes General: appearance normal, both eyes and all related structures Neck Neck: Yes normal visual inspection, Yes no lymphadenopathy, Yes trachea midline and Yes no JVD Thyroid: Thyroid normal Chest Chest palpation & inspection: normal inspection of the chest, normal palpation of entire chest wall and no tenderness Resp Effort & Inspection: normal respiratory effort Auscultation: clear to auscultation bilaterally, no crackles and no wheezes Cardio Palpation: normal PMI Rate: regular rate Rhythm: regular rhythm Heart sounds: no gallops and no murmurs Peripheral pulses: Peripheral pulses 2+ throughout GI Palpation (GI): Soft to palpation, nontender, No hepatosplenomegaly present, no masses and Other GI palpation findings present (Midline scar Abdomen is Obese and protuberant, Lt. sided ventral hernia , ) Auscultation: normal bowel sounds Back/Spine/Pelvis Thoracic/Lumbar Spine: thoracic and lumbar spine normal to inspection Skin General skin exam: no rashes or lesions noted Neuro General: patient oriented x3 and no focal motor deficits Cranial nerves: Yes CN's II-XII intact bilaterally Extrem General: Yes normal to inspection, Yes no clubbing, cyanosis or edema and Yes no calf tenderness Psych Appearance: grossly normal and well kempt Speech and movement: Normal speech and movement present Office Procedures Spirometry Testing Spirometry Comments: Spirometry done in the office, Dr. Pearson has the results results scanned to his chart. 48628- Spirometry Results Reviewed Results Reviewed: Compliance report for the last 30 nights is reviewed He has used his BiPAP for 30/30 nights, 100%. Average use per night 8 hours 45 minutes. Air leak 95th percentile 110 and maximum 160. Residual AHI 7.3. SPIROMETRY : FVC=72 % FEV1=68 % FEV1/FVC=73 FEF 25-75 =63 % C/W MILD TO MODERATE DEGREE OF RESTRICTIVE DISORDER, SECONDARY TO MORBID OBESITY. THERE IS NO SIGNIFICANT OBSTRUCTIVE DISORDER. Assessment & Plan Assessment & Plan (1) Morbid obesity: Comment: IT IS A CHRONIC PROBLEM, HE IS WELL AWARE OF THIS ISSUE. TALKED ABOUT DIET. AND ALSO ABOUT EXERCISE LIKE WALKING ABOUT 2 MILES EVERY DAY. HE HAS LIMITED CAPACITY TO WALK AND DOING EXERCISE DUE TO HIS CHRONIC ARTHROPATHY. DOES NOT WANT TO BE IN ANY WEIGHT MANAGEMENT PROGRAM. Code(s): E66.01 - Morbid (severe) obesity due to excess calories Plan: DISCUSSED ABOUT HIS DIET AND NEED TO DO MORE PHYSICAL ACTIVITY. HE WILL DO HIS BEST. (2) TIFFANY on CPAP: Comment: KNOWN CASE OF SEVERE OBSTRUCTIVE SLEEP APNEA. HE REQUIRES USE OF BIPAP WITH PRESSURE SETTING 24/20 CM. HE IS VERY COMPLIANT AND BENEFITS FROM THE USE OF CPAP. THERE IS SOME AIR LEAK. Code(s): G47.33 - Obstructive sleep apnea (adult) (pediatric); Z99.89 - Dependence on other enabling machines and devices Plan: COMMENDED FOR EXCELLENT COMPLIANCE. ADVISED TO TIGHTEN THE STRAPS TO MINIMIZE AIR LEAK. (3) Restrictive lung disease: Comment: PER SPIROMETRY FINDING THERE IS EVIDENCE OF MILD TO MODERATE DEGREE OF RESTRICTIVE PULMONARY DISORDER, THIS IS EXPECTED BECAUSE OF HIS MORBID OBESITY. Code(s): J98.4 - Other disorders of lung Plan: EXPLAINED THE RESULTS TO THE PATIENT. ADVISED TO LOSE WEIGHT. ADVISED TO DO DEEP BREATHING EXERCISES 3 TIMES A DAY Plan FROM PULMONARY AND SLEEP POINT OF VIEW , HE HAS NO CONTRAINDICATION TO THE SURGICAL PROCEDURE. NO SIGNIFICANT ADVERSE EVENTS ARE EXPECTED. IF THE SURGICAL PROCEDURE IS PERFORMED UNDER GENERAL ANESTHESIA, THEN IN THE RECOVERY PHASE, HE MAY HAVE SOME SLEEP APNEAS, WHICH WILL RESOLVE SOON HE WAKES UP. Orders: Orders AMB Spirometry Testing Today G47.33 - Obstructive sleep apnea (adult) (pediatric), Z99.89 - Dependence on other enabling machines and devices Coding Level of Care Code Est Pt Level 4 (02267) Diagnoses Morbid obesity E66.01 TIFFANY on CPAP G47.33; Z99.89 Restrictive lung disease J98.4 CPT Codes Spirometry - CPT: 04892- Spirometry ([id number])
== END 2023-05-23 15:18 | disposition home or self-care (01) ==
PROVIDERS: PCP Internal Medicine; Referring Provider Internal Medicine; Visit Provider Internal Medicine
DX: E66.01 Morbid (severe) obesity due to excess calories (principal); G47.33 Obstructive sleep apnea (adult) (pediatric); Z99.89 Dependence on other enabling machines and devices; J98.4 Other disorders of lung
CPT/HCPCS: 94010; 99214

== ENCOUNTER → 2023-05-23 14:25 | Outpatient (BNVA) | payer MEDICARE, MEDICAID, SELFPAY | PROVIDERS: PCP Internal Medicine; Visit Provider Internal Medicine | DX: Z01.818 Encounter for other preprocedural examination (principal); E66.01 Morbid (severe) obesity due to excess calories; G47.33 Obstructive sleep apnea (adult) (pediatric); J98.4 Other disorders of lung; Z99.89 Dependence on other enabling machines and devices; Z68.41 Body mass index [BMI] 40.0-44.9, adult | CPT/HCPCS: 94010; 99212 ==

== ENCOUNTER → 2023-05-24 08:36 | Outpatient (REF) | payer MEDICARE, MEDICAID, SELFPAY | LOC: HO.CARD 08:36 | PROVIDERS: PCP Internal Medicine; Visit Provider Internal Medicine | DX: Z13.89 Encounter for screening for other disorder (principal) ==

== ENCOUNTER 2023-05-26 10:52 | Outpatient (REF) | payer MEDICARE, MEDICAID, SELFPAY ==
[2023-05-26 14:11] LABS: MANUAL DIFF FLAG NO
[2023-05-26 14:57] LABS: Basophils Percent Auto 0.6 % (0-2); Eosinophils Absolute Auto 0.1 X10*3/uL (0.0-0.4); Eosinophils Percent Auto 1.9 % (0-4); Hematocrit 29.2 % (42.0-52.0); Hemoglobin 9.1 g/dl (14.0-18.0); Imm Gran Abs Auto 0.05 X10*3/uL (0.00-0.03); Imm Gran Pct Auto 1.1 % (0.0-0.4); Lymphocytes Absolute Auto 1.5 X10*3/uL (1.2-4.9); Lymphocytes Percent Auto 32.8 % (20-40); Mean Corpuscular HGB Conc 31.2 g/dl (31.0-36.0); Mean Corpuscular Hemoglobin 27.7 pg (27.0-33.0); Mean Corpuscular Volume 88.8 fL (80.0-98.0); Mean Platelet Volume 11.3 fL (9.4-12.4); Monocytes Absolute Auto 0.4 X10*3/uL (0.1-1.2); Monocytes Percent Auto 8.6 % (2-11); Neutrophils Absolute Auto 2.6 x10*3/uL (2.0-8.3); Platelet Count 191 X10*3/uL (160-400); Red Blood Count 3.29 X10*6/uL (4.60-5.80); Red Cell Distribution Width 19.8 % (11.0-16.0); White Blood Count 4.6 X10*3/uL (4.8-10.8)
[2023-05-26 15:17] LABS: Alanine Aminotransferase 10 U/L (0-40); Albumin Level 3.9 g/dL (3.5-5.0); Alkaline Phosphatase 83 U/L (39-117); Anion Gap 13 (12-20); Aspartate Amino Transferase 22 U/L (5-37); Bilirubin Total 0.8 mg/dL (0.0-1.0); Blood Urea Nitrogen 22 mg/dL (9-16); Calcium 9.1 mg/dL (8.4-10.2); Carbon Dioxide 24 mmol/L (22-29); Chloride 107 mmol/L (96-108); Estimated Glomerular Filt Rate 56; Glucose Random 154 mg/dL (60-115); Iron 88 mcg/dL (45-160); Percent Iron Saturation 36 % (15-50); Potassium 4.1 mmol/L (3.3-5.1); Sodium 140 mmol/L (135-145); Total Iron Binding Capacity 246 mcg/dL (228-428); Total Protein 6.7 g/dL (6.5-8.0); Unsaturated Iron Binding 158 ug/dL
[2023-05-26 15:33] LABS: Ferritin 91 ng/mL (20-250)
[2023-05-26 15:38] LABS: Folate 15.4 ng/mL (> or = 4.0); Vitamin B12 331 pg/mL (200-900)
[2023-05-26 16:06] LABS: Erythrocyte Sedimentation Rate 26 MM/HR (0-15)
[2023-05-30 11:14] LABS: Prot Elec - Albumin 3.7 g/dL (3.8-4.8); Prot Elec - Alpha1 0.4 g/dL (0.2-0.3); Prot Elec - Alpha2 0.5 g/dL (0.5-0.9); Prot Elec - Beta 1 0.4 g/dL (0.4-0.6); Prot Elec - Beta 2 0.3 g/dL (0.2-0.5); Prot Elec - Gamma 0.9 g/dL (0.8-1.7); Prot Elec - Total Protein 6.2 g/dL (6.1-8.1)
[2023-05-31 16:09] LABS: Transferrin 218 mg/dL (188-341)
[2023-06-01 12:54] LABS: IgA 90 mg/dL (70-320); IgG 1137 mg/dL (600-1540); IgM 85 mg/dL (50-300)
== END 2023-05-26 10:53 | disposition home or self-care (01) ==
LOC: HO.WFDLDS 10:52
PROVIDERS: PCP Internal Medicine; Visit Provider Student in an Organized Health Care Education/Training Program
DX: K63.9 Disease of intestine, unspecified (principal); M07.60 Enteropathic arthropathies, unspecified site; D64.9 Anemia, unspecified
CPT/HCPCS: 36415; 80053; 82607; 82728; 82746; 82784; 83540; 84165; 84466; 85025; 85652; 86140; 86334

== ENCOUNTER → 2023-06-06 15:14 | Outpatient (BNVA) | payer MEDICARE, MEDICAID, SELFPAY | PROVIDERS: PCP Internal Medicine; Visit Provider Physician Assistant ==

== ENCOUNTER → 2023-06-13 05:45 | Day surgery (SDC) | payer MEDICARE, MEDICAID, SELFPAY ==
[2023-06-06 13:25] VITALS: BP 128/59; PULSE 51; RESP 22; O2SAT 98; BMI 44.1
--- NOTE | 2023-06-13 | ECG_ITS ---
Test Reason : preop Blood Pressure : / mmHG Vent. Rate : 062 BPM Atrial Rate : 070 BPM P-R Int : 000 ms QRS Dur : 146 ms QT Int : 454 ms P-R-T Axes : 000 -08 036 degrees QTc Int : 460 ms Atrial fibrillation with Premature ventricular complexes Non-specific intra-ventricular conduction block Abnormal ECG When compared with ECG of 18-APR-2014 04:38, Atrial fibrillation has replaced Possible Normal sinus rhythm Referred By: Karyn Escudero Electronically Signed By:JESUS VELASQUEZ MD
[2023-06-13 06:08] VITALS: BMI 44.7
[2023-06-13] MEDS: Lactated Ringers 1,000 ML 50 ML IVCONT (06:18)
[2023-06-13 06:27] VITALS: BP 142/44; PULSE 63; RESP 18; TEMP 36.7; O2SAT 97
--- NOTE | 2023-06-13 07:25 | P.CONAN_ITS ---
Documented by User: Kenia Peralta NP 06/10/23 11:40 HPI - Anesthesia Eval Consult details Narrative: 68yo M for Right Cubital Tunnel Release vs transposition, Right Carpal Tunnel Release, Right Ring finger Trigger Release, Right Biopsy Right Ipsilateral upper extremity Tophi COVID + 05/26/23 - nasal congestion at PAT, mild cough No CP/SOB with minimal activity Pulmo cleared. Follows [facility] pulmo for TIFFANY (bipap) Cardiac cleared. 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 Unable to perform stress test d/t claustrophobia. PCP cleared Arthritis on methotrexate - 06/01/23 Crohn's on immunologics Q8w TIFFANY on bipap with good compliance [facility] Active Problems Active Problems: All Active Problems (Updated 06/06/23 @ 13:31 by Maggi Steven RN) Gouty tophi of joint (Acute) Preoperative cardiovascular examination (Acute) Stiffness of joints of both hands (Acute) Cubital tunnel syndrome of both upper extremities (Acute) Carpal tunnel syndrome on both sides (Acute) Arthritis associated with inflammatory bowel disease (Acute) Tingling of both upper extremities (Acute) Persistent atrial fibrillation (Acute) Bilateral hand pain (Acute) Bilateral foot pain (Acute) Arthropathy (Acute) Crohn's colitis (Acute) Restrictive lung disease (Acute) Cervical spondylosis (Acute) Epidermal cyst (Acute) Essential hypertension (Acute) Status post surgical atrial septal defect closure (Acute) Chronic right heart failure (Acute) TIFFANY on CPAP (Acute) Morbid obesity (Acute) Past Medical History Medical History COVID-19 Claustrophobia Arthritis Atrial septal defect Atrial fibrillation Gouty tophi of joint Restrictive lung disease Cervical spondylosis Epidermal cyst Essential hypertension Chronic right heart failure Crohn's disease TIFFANY on CPAP Morbid obesity Family History Family History Father Hx of Crohn's disease Cancer Mother Hx of type 2 diabetes mellitus Family history of problems with anesthesia: No Surgical History Surgical History History of colon resection History of excision of epidermal inclusion cyst (~03/27/21) History of esophagogastroduodenoscopy (EGD) Status post surgical atrial septal defect closure History of colonoscopy History of Problems with Anesthesia: No Social History Social History Are you a primary home health caregiver to a significant other at home: No Do you presently have visiting nurse or other home services: No Alcohol intake: never Comment: occasional cane/walker if needed for balance Patient Tobacco Use Status: Former Tobacco user Quit Date: age 24 Tobacco use type: Cigarette Years Smoked: 10 +/- Use of substances other than those prescribed or required for medical reasons: No Have you been hit, kicked, punched, or otherwise hurt by someone within the past year? If so, by whom?: No Are you DNR?: No Advance Directives: No Advance Directives Information Provided: Yes Advance Directives on File: No Recently lost weight without trying: No Eating poorly because of decreased appetite: No Nutrition Risks: No Nutritional Risk Poor oral hygiene: No Current occupational status: retired Current occupation: right hand dominant Meds Allergies Allergy/AdvReac Type Severity Reaction Status Date / Time tramadol Allergy Mild Dizziness Verified 06/13/23 06:10 Home Medications Medication Instructions Recorded Confirmed Last Taken Type amlodipine 10 mg tablet 10 mg PO QAM 03/03/20 06/06/23 06/13/23 History vedolizumab 300 mg intravenous 300 mg IV Q8W 12/16/20 06/06/23 Unknown History solution ferrous sulfate 324 mg (65 mg 324 mg PO DAILY 12/25/20 06/06/23 Unknown History iron) tablet,delayed release acetaminophen 650 mg 1,300 mg PO Q8H 06/01/21 06/06/23 Unknown History tablet,extended release (Tylenol Arthritis Pain) tumeric 100 mg-sparkle 150 mg-olive 1 cap PO DAILY 06/01/21 06/06/23 Unknown History 50 mg-oreg 150 mg-caprylate capsule multivitamin 1 tab PO DAILY 09/15/22 06/06/23 Unknown History furosemide 40 mg tablet 80 mg PO QAM 01/20/23 06/06/23 Unknown History insulin syringe-needle U-100 1/2 #10 ea 02/25/23 05/23/23 Unknown History mL 31 gauge x 15/64 (BD Veo Insulin Syringe Ultra-Fine) losartan 100 mg tablet 100 mg PO QAM 06/06/23 06/06/23 Unknown History pantoprazole 40 mg tablet,delayed 40 mg PO QAM 06/06/23 06/06/23 06/13/23 History release Exam Height,Weight and Vital Signs: Height 5 ft 11 in Weight 143.335 kg Last Vital Signs Pulse 51 06/06/23 13:25 Resp 22 H 06/06/23 13:25 BP 128/59 L 06/06/23 13:25 Pulse Ox 98 06/06/23 13:25 O2 Del Method Room Air 06/06/23 13:25 Airway TM Dist: <=3cm Neck ROM: Full Loose/Missing/Broken Teeth: Yes (molars pulled, 1 x crowned ) Heart: RRR Lungs: Uppers clear, lowers coarse Assessment and Plan Assessment Anesthesia Assessment: Anesthesia Plan Discussed and PAT Visit Final Anesthetic Review Family History of Problems with Anesthesia: No History of Problems with Anesthesia: No Documented by User: Karyn Escudero DO 06/13/23 07:32 [facility] Past Medical History Medical History COVID-19 Claustrophobia Arthritis Atrial septal defect Atrial fibrillation Gouty tophi of joint Restrictive lung disease Cervical spondylosis Epidermal cyst Essential hypertension Chronic right heart failure Crohn's disease TIFFANY on CPAP Morbid obesity Family History Family History Father Hx of Crohn's disease Cancer Mother Hx of type 2 diabetes mellitus Family history of problems with anesthesia: No Surgical History Surgical History History of colon resection History of excision of epidermal inclusion cyst (~03/27/21) History of esophagogastroduodenoscopy (EGD) Status post surgical atrial septal defect closure History of colonoscopy History of Problems with Anesthesia: No Social History Social History Are you a primary home health caregiver to a significant other at home: No Do you presently have visiting nurse or other home services: No Alcohol intake: never Comment: occasional cane/walker if needed for balance Patient Tobacco Use Status: Former Tobacco user Quit Date: age 24 Tobacco use type: Cigarette Years Smoked: 10 +/- Use of substances other than those prescribed or required for medical reasons: No Have you been hit, kicked, punched, or otherwise hurt by someone within the past year? If so, by whom?: No Are you DNR?: No Advance Directives: No Advance Directives Information Provided: Yes Advance Directives on File: No Recently lost weight without trying: No Eating poorly because of decreased appetite: No Nutrition Risks: No Nutritional Risk Poor oral hygiene: No Current occupational status: retired Current occupation: right hand dominant Meds Allergies Allergy/AdvReac Type Severity Reaction Status Date / Time tramadol Allergy Mild Dizziness Verified 06/13/23 06:10 Home Medications Medication Instructions Recorded Confirmed Last Taken Type amlodipine 10 mg tablet 10 mg PO QAM 03/03/20 06/06/23 06/13/23 History vedolizumab 300 mg intravenous 300 mg IV Q8W 12/16/20 06/06/23 Unknown History solution ferrous sulfate 324 mg (65 mg 324 mg PO DAILY 12/25/20 06/06/23 Unknown History iron) tablet,delayed release acetaminophen 650 mg 1,300 mg PO Q8H 06/01/21 06/06/23 Unknown History tablet,extended release (Tylenol Arthritis Pain) tumeric 100 mg-sparkle 150 mg-olive 1 cap PO DAILY 06/01/21 06/06/23 Unknown History 50 mg-oreg 150 mg-caprylate capsule multivitamin 1 tab PO DAILY 09/15/22 06/06/23 Unknown History furosemide 40 mg tablet 80 mg PO QAM 01/20/23 06/06/23 Unknown History insulin syringe-needle U-100 1/2 #10 ea 02/25/23 05/23/23 Unknown History mL 31 gauge x 15/64 (BD Veo Insulin Syringe Ultra-Fine) losartan 100 mg tablet 100 mg PO QAM 06/06/23 06/06/23 Unknown History pantoprazole 40 mg tablet,delayed 40 mg PO QAM 06/06/23 06/06/23 06/13/23 History release Exam Exam Date and Time: June 13, 2023 0725 Height,Weight and Vital Signs: Height 5 ft 11 in Weight 143.335 kg Last Vital Signs Pulse 51 06/06/23 13:25 Resp 22 H 06/06/23 13:25 BP 128/59 L 06/06/23 13:25 Pulse Ox 98 06/06/23 13:25 O2 Del Method Room Air 06/06/23 13:25 Height 5 ft 11 in Weight 145.422 kg Vital Signs Pulse Rate 51 06/06/23 13:25 Respiratory Rate 22 H 06/06/23 13:25 Blood Pressure 128/59 L 06/06/23 13:25 Pulse Oximetry 98 06/06/23 13:25 Oxygen Delivery Method Room Air 06/06/23 13:25 Temperature 98.1 F 06/13/23 06:27 Pulse Rate 63 06/13/23 06:27 Respiratory Rate 18 06/13/23 06:27 Blood Pressure 142/44 H 06/13/23 06:27 Pulse Oximetry 97 06/13/23 06:27 Oxygen Delivery Method Room Air 06/13/23 06:27 Airway Mallampati Class: II TM Dist: <=3cm Neck ROM: Full Loose/Missing/Broken Teeth: Yes (missing some molars) Heart: S1S2 Lungs: CTAB Other: Large neck, round facies Assessment and Plan Assessment Anesthesia Assessment: Anesthesia Plan Discussed and Chart Reviewed Final Anesthetic Review Family History of Problems with Anesthesia: No History of Problems with Anesthesia: No NPO: Yes ASA Class: III Final Preanesthetic Review: No Changes in Pt Med Stat, Meds/Allgs Chart Reviewed, Consent Obtained/Reviewed and Anes Risks/Benef Reviewed Patient Risk: Intermediate Procedure Risk: Low Anesthetic Plan Anesthetic Plan: GA, Regional Block (consented for possible left brachial plexus block) and Agree w/ Assess. and Plan Disposition: Standard PACU
--- NOTE | 2023-06-13 07:46 | PC.NURSE ---
When giving report to Lavonne Boyd TRUCK OPERATOR, multiple PVC's noted and patient pulse was as low as 31 - 36. Dr. Escudero to bedside. Stat EKG ordered. patient remains asymptomatic.
--- NOTE | 2023-06-13 08:14 | P.HPSUR_ITS ---
Pre-Procedural Eval Section A - 24 Hr Update-Section A only Date of Service: 06/13/23 The patient is an INPATIENT: No Changes since office visit: Yes Cold of Flu in the past 2 weeks, Yes New Medical Problems, Yes Changes in Medication and Yes Patient answered all questions The patient has been examined within 24 hours of the surgical procedure. The History & Physical has been completed within 30 days and I have reviewed it.: Yes Section B - Complete if H&P > 30 days Chief Complaint: carplal tunnel,lesion of ulnar nerve Allergies: Allergies Allergy/AdvReac Type Severity Reaction Status Date / Time tramadol Allergy Mild Dizziness Verified 06/13/23 06:10 Exam Exam Comment: Patient was alert oriented and in no acute distress. He denied having any problems with shortness of breath or chest pain. He was scheduled today for a left cubital tunnel release, carpal tunnel release, and excisional biopsy of an ulnar-sided forearm mass suspicious for gouty tophi. Indeed he has a mass suspicious for a gouty tophi on the proximal ulnar aspect of the forearm that measures about 2.5 cm in diameter. It is solid and not particularly tender. No overlying skin changes. Full range of motion at the elbow. On EKG today were noticing that his heart rate dip down into the mid to low 30s on several occasions. He was also found to have numerous PVCs on his 12 lead EKG. Regarding his left hand, he has decreased subjective sensation in the median nerve distribution with better sensation to the small finger. Cap refill was brisk to all digits. Plan I have reviewed the history and physical and performed a pertinent physical examination on my patient. Assessment and plan: Given his EKG findings with heart rate down into the 30s and numerous PVCs on his 12 lead EKG we are cancelling his elective surgery for today. Anesthesia is talking with him about being seen by his needle punch machine operator hopefully today or this week. Of note, the patient reportedly had COVID about 2 weeks ago. We will reschedule him once he has cardiac clearance. Time Spent With Patient Time: Total time managing care of this patient today _20___ minutes.
--- NOTE | 2023-06-13 08:30 | PC.NURSE ---
Dr. Escudero at bedside when stat EKG completed. Decision made to cancel procedure today. Dr. Colin at bedside as well. updated. Patient remained asymptomatic during stay in [facility]. Dr. Escudero to message Dr. Chun for patient to be seen for preop clearance. Patient to go home and schedule f/u appts. patient/ aware to resume Eliquis as ordered due to procedure being cancelled. Iv removed and patient left with with all belongings.
== END ==
PROVIDERS: PCP Internal Medicine; Visit Provider Orthopaedic Surgery
DX: G56.02 Carpal tunnel syndrome, left upper limb (principal); Z53.8 Procedure and treatment not carried out for other reasons; R00.1 Bradycardia, unspecified; I49.3 Ventricular premature depolarization; I10 Essential (primary) hypertension
CPT/HCPCS: 93005; J0690; J2704; J3010

== ENCOUNTER → 2023-06-13 07:44 | Outpatient (BNV) | payer MEDICARE, MEDICAID, SELFPAY | PROVIDERS: PCP Internal Medicine; Visit Provider Internal Medicine Cardiovascular Disease | DX: I48.19 Other persistent atrial fibrillation (principal); R94.31 Abnormal electrocardiogram [ECG] [EKG] | CPT/HCPCS: 93010 ==

== ENCOUNTER → 2023-06-14 13:16 | Outpatient (REF) | payer MEDICARE, MEDICAID, SELFPAY ==
--- NOTE | 2023-06-14 13:18 | HM_ITS ---
* Underlying rhythm is atrial fibrillation with an average ventricular rate of 48/Min. Range 41-95/Min. * About 87% of the time, rate less than 60/Min. * Frequent premature ventricular contractions with a burden of 3.1%. Multiple morphologies. Evidence of couplets, triplets, bigeminy and trigeminy. Several runs noted. Longest 21 beats. Monomorphic. * No significant pauses or AV blocks. * No patient markers or diary events. MTDD
== END ==
LOC: HO.CARD 13:16
PROVIDERS: PCP Internal Medicine; Visit Provider Internal Medicine
DX: I48.19 Other persistent atrial fibrillation (principal); R00.1 Bradycardia, unspecified
CPT/HCPCS: 93242

== ENCOUNTER → 2023-06-14 13:18 | Outpatient (BNV) | payer MEDICARE, MEDICAID, SELFPAY | PROVIDERS: PCP Internal Medicine; Visit Provider Internal Medicine | DX: I48.19 Other persistent atrial fibrillation (principal) | CPT/HCPCS: 93244 ==

== ENCOUNTER 2023-06-20 11:28 | Outpatient (AMB) | payer MEDICARE, MEDICAID, SELFPAY ==
--- NOTE | 2023-06-20 11:39 | MHC.OFFVIS ---
Intake Vital Signs 06/20/23 11:46 Height 5 ft 11 in Weight 315 lb BMI 43.9 BP 150/59 H Blood Pressure Location Lt brachial Position Sitting Pulse 56 Intake Visit Reasons: 4 month follow up Intake Note: Patient follow up Patient denies any GI issues. Stevedoring Supervisor Required: No Accompanied by: Spouse Allergies tramadol Allergy (Mild, Verified 06/20/23 11:39) Dizziness HPI 4 month follow up HPI Details 67 yr old m here for f/u for crohns INDEX visit-- he had loose stools for 3 months he noted it was worse when he was started on meloxicam and naprosyn and after he stopped it got better but he still has the loose stools 1-2 times/day he denies blood in stool has a lot of gas and gurgles no nausea or vomtiing appetite is variable weight is gone down 20# but seems to have plateued deneis abdo pain denies fevers or chillss no ABx last few months PCP checked c diff 12/2018 and was neg, stool c/s neg and o/p neg ?he had partial colectomy for diverticulitsi he never had colonoscopy. Colonoscopy/EGD 03/2020--- atrophic gastritis, esophagitis, duodenitis, colon granular with erythema, bx with inactive and active colitis/ileiits, granuloma seen, gastritis, esophagitis commenced on mesalamine, but changed to budesonide due to high fecal nia fecal nia was 1146 c diff neg 12/2018 panc elastase 382 at f/u 07/2019:::::: diarrhea had improved goes to toilet once a day, usu formed, but soft,, not runny He had rising CRP with suspected inflammatory arthropathy despite entyvio, so changed to humira with increased dose eventually to q1week due to break thru sx Humira was increased but he still had sx with rising calprotectin, so changed back to entyvio, he had no antibodies so 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 but HGB was better than before 09/04 with HGB 11.8, mild CRP elevation Repeat labs:11/2021 HGB 11.8 WCC: 5 pls 188 CRP 1.25 fecal nia: 196 LFt normal LABS:12/14/22 HGB 10.5 WCC: 3.4 CRP 2.16 LFt nml Labs: HGB: 9.1 wcc: 4.6 plt: 190 ferritin: 91 iron sat: 36% crp: 1.6 INTERIM: carpal tunnel surg was postponed due to bradycardia, this is his main issue at this time No diarrhea, stools are normal-on usual pattern of once daily appetite is good, weight loss deliberate--on brayan --still on MTX EXAM: GENERAL: The patient is obese VITAL SIGNS:see workflow HEENT: Nonicteric sclerae, PERRLA, EOMI. Oropharynx clear. Moist mucous membranes. Conjunctivae appear well perfused. No thyroid mass. CHEST: Chest wall is nontender. HEART: Regular rate and rhythm without murmurs. LUNGS: Clear to auscultation bilaterally. ABDOMEN: Soft, positive bowel sounds, nontender, no organomegaly.no flank tenderness, scar noted from prior surgery SKIN: No rash, no excessive bruising, petechiae, or purpura. NEUROLOGIC: Cranial nerves II-XII intact without motor/sensory deficit. no synovitis in hands A/P: 1. Crohn''s disease of both small and large intestine without complication 2. arthropathy, related to crohns, possible degenerative disease as well, on MTX, carapl tunnel syndrome 3/ anemia of chronic disease related to crohns and arthropathy, MTX usage PLAN: 1/ cont with MTX, being monitored by Rheum 2/ cont with entyvio, 3/ colonoscopy sometime this year after his hand surgeries and bradycardia issues resolved [facility] Medical History COVID-19 Claustrophobia Arthritis Atrial septal defect Atrial fibrillation Gouty tophi of joint Restrictive lung disease Cervical spondylosis Epidermal cyst Essential hypertension Chronic right heart failure Crohn's disease TIFFANY on CPAP Morbid obesity Surgical History History of colon resection History of excision of epidermal inclusion cyst (~03/27/21) History of esophagogastroduodenoscopy (EGD) Status post surgical atrial septal defect closure History of colonoscopy Family History Father Hx of Crohn's disease Cancer Mother Hx of type 2 diabetes mellitus Social History Are you a primary wound care specialist to a significant other at home: No Do you presently have visiting nurse or other home services: No Alcohol intake: never Comment: occasional cane/walker if needed for balance Patient Tobacco Use Status: Former Tobacco user Quit Date: age 24 Tobacco use type: Cigarette Years Smoked: 10 +/- Current occupational status: retired Current occupation: right hand dominant Physical Exam Vital Signs: Last Vital Signs Pulse 56 06/20/23 11:46 BP 150/59 H 06/20/23 11:46 BMI result Body Mass Index 43.9 Assessment & Plan Assessment & Plan (1) Crohn's colitis: Code(s): K50.10 - Crohn's disease of large intestine without complications Plan: A/P: 1. Crohn''s disease of both small and large intestine without complication 2. arthropathy, related to crohns, possible degenerative disease as well, on MTX, carapl tunnel syndrome 3/ anemia of chronic disease related to crohns and arthropathy, MTX usage PLAN: 1/ cont with MTX, being monitored by Rheum 2/ cont with entyvio, 3/ colonoscopy sometime this year after his hand surgeries and bradycardia issues resolved Coding Level of Care Code Est Pt Level 3 (59531) Diagnoses Crohn's colitis K50.10
[2023-06-20 11:46] VITALS: BP 150/59; PULSE 56; BMI 43.9
== END 2023-06-20 12:07 | disposition home or self-care (01) ==
PROVIDERS: PCP Internal Medicine; Visit Provider Internal Medicine Gastroenterology
DX: K50.10 Crohn's disease of large intestine without complications (principal)
CPT/HCPCS: 99213

== ENCOUNTER → 2023-06-20 11:28 | Outpatient (BNVA) | payer MEDICARE, MEDICAID, SELFPAY | PROVIDERS: PCP Internal Medicine; Visit Provider Internal Medicine Gastroenterology | DX: K50.10 Crohn's disease of large intestine without complications (principal) | CPT/HCPCS: 99212 ==

== ENCOUNTER → 2023-06-24 14:11 | Outpatient (REF) | payer MEDICARE, MEDICAID, SELFPAY ==
--- NOTE | 2023-06-24 14:13 | CA_ITS ---
Transthoracic Echocardiogram Patient (Last, First, Middle): Hector Colon K Gender: Male Date of : 1955 Age: 68 Procedure Date: 06/24/2023 Procedure Type: Transthoracic Echocardiogram Location: OP Height: 180. cm Weight: 142.88 kg BSA: 2.55 m2 Heart Rate: bpm BP: 145 / 45 mmHg Entry Level Chemist: MARCO Referring MD: Sathya Chun MD Symptoms: I50.812 - Chronic right heart failure Study Quality: Technically Difficult ECG Rhythm: Atrial Fibrillation, PVCs Conclusions: - Grossly normal LVEF. - The visually estimated ejection fraction is between 60-65%. - There is mild to moderately decreased right ventricular systolic function. - No obvious valvular pathology seen on this study. Findings Procedure Information Contrast agent, definity, is being given per protocol without apparent complications. The quality of the study was technically difficult. The study quality is limited by patients body habitus. Left Ventricle The left ventricle was not well visualized. Normal left ventricular cavity size. There is mildly increased left ventricular wall thickness. The visually estimated ejection fraction is between 60-65%. Regional wall motion abnormalities can not be excluded due to suboptimal endocardial definition. Diastolic function is indeterminate on the basis of available data. Views are foreshortened. Grossly normal LVEF. Right Ventricle The right ventricle was not well visualized. There is mild to moderately decreased right ventricular systolic function. Atria The left atrium is mildly dilated. The right atrium is severely dilated. Aortic Valve The aortic valve structure and function is likely normal. There is no aortic valve stenosis. There is no aortic valve regurgitation. Mitral Valve The mitral valve appears normal. There is no mitral valve regurgitation. There is no mitral valve stenosis. Pulmonic Valve The pulmonic valve is likely normal. Tricuspid Valve There is mild tricuspid valve regurgitation. Mild pulmonary hypertension is present. Great Vessels There is mild dilatation of the sinuses of Valsalva measuring 4.60 cm and mild dilatation of the ascending aorta measuring 4.00 cm. (probably acceptable for BSA). Venous The inferior vena cava is normal in size and collapses less than 50% with inspiration. Pericardium/Pleural There is no evidence of pericardial effusion. Prior Study Comparison No significant change compared to prior study dated: 06/20/2020. Recommendations, Care & Conclusions No obvious valvular pathology seen on this study. Measurements 2D Linear Measurements IVSd: 1.26 0.6-0.9/0.6-1.0 cm LVIDd: 4.74 3.9-5.3/4.2-5.9 cm LVIDd Index: 1.86 2.4-3.2/2.2-3.1 cm/m2 LVIDs: 3.39 2.0-3.6 cm LVPWd: 1.23 0.7-1.1 cm LV Mass: 282.29 67-162/88-224 g LV Mass Index: 110.70 43-95/49-115 g/m2 LVOT Diam: 2.60 3.0+(-)1.3 cm 2D Systolic Function EF 4C: 67.70 >55% EF 2C: 63.80 >55% EF BiP: 65.80 >55% Mitral Valve MV Pk E: 1.37 MV Decel Time: 236.00 E'Lateral: 6.31 E'Medial: 7.18 E/E' Med: 19.10 E/E' Lat: 21.70 PHT: 70.00 MVA PHT: 3.14 Decel Day: 5.74 Aortic Valve AoV Pk Evangelist: 1.62 AoV Mn Evangelist: 1.07 AoV VTI: 0.31 AoV Pk Grad: 10.00 Aov Mn Grad: 5.00 BALTAZAR Cont.VTI: 4.10 LVOT LVOT Pk Evangelist: 1.23 LVOT Mn Evangelist: 0.84 LVOT VTI: 0.24 LVOT Pk Grad: 6.00 LVOT Mn Grad: 4.00 LVOT Diam: 2.60 LVOT Area: 5.31 Diastolic Function MV Pk E: 1.37 E'Medial: 7.18 E/E' Med: 19.10 E' Laterial: 6.31 E/E' Lat: 21.70 Right Ventricle TAPSE (mm): 15.60 TVS' Evangelist: 6.40 Tricuspid Valve TR Pk Evangelist: 3.01 TR Pk Grad: 36.00 RA Press: 8.00 RVSP: 44.00 Great Vessels Aorta Sinus of Valsalva: 4.60 2.0-3.5 cm Ao Asc: 4.00 2.1-3.4 cm Pulmonary Valve PV Pk Evangelist: 1.63 Peak PV Grad: 11.00 Updated in Other Vendor System with Status of Final Sathya Chun MD electronically signed on 06/26/2023 8:28:20 AM with status of Final
== END ==
LOC: HO.CARD 14:11
PROVIDERS: PCP Internal Medicine; Visit Provider Internal Medicine
DX: I50.812 Chronic right heart failure (principal); I48.19 Other persistent atrial fibrillation
CPT/HCPCS: 93306; Q9957

== ENCOUNTER → 2023-06-24 14:13 | Outpatient (BNV) | payer MEDICARE, MEDICAID, SELFPAY | PROVIDERS: PCP Internal Medicine; Visit Provider Internal Medicine | DX: I36.1 Nonrheumatic tricuspid (valve) insufficiency (principal); I50.812 Chronic right heart failure | CPT/HCPCS: 93306 ==

== ENCOUNTER 2023-06-28 08:39 | Outpatient (REF) | payer MEDICARE, MEDICAID, SELFPAY ==
[2023-06-30 22:58] LABS: TS Negative Control Passed; TS Panel A 0; TS Panel B 0; TS Positive Control Passed; TSpotTB Negative (Negative)
== END 2023-06-28 08:40 | disposition home or self-care (01) ==
LOC: HO.MDS 08:39
PROVIDERS: Visit Provider Internal Medicine Gastroenterology
DX: K50.10 Crohn's disease of large intestine without complications (principal); Z11.1 Encounter for screening for respiratory tuberculosis
CPT/HCPCS: 36415; 86481; 96365; J3380

== ENCOUNTER 2023-06-29 10:10 | Outpatient (REF) | payer MEDICARE, MEDICAID, SELFPAY ==
[2023-06-29 11:24] LABS: MANUAL DIFF FLAG NO
[2023-06-29 11:43] LABS: Basophils Percent Auto 0.5 % (0-2); Eosinophils Absolute Auto 0.1 X10*3/uL (0.0-0.4); Eosinophils Percent Auto 1.3 % (0-4); Hematocrit 33.3 % (42.0-52.0); Hemoglobin 10.8 g/dl (14.0-18.0); Imm Gran Abs Auto 0.05 X10*3/uL (0.00-0.03); Imm Gran Pct Auto 0.8 % (0.0-0.4); Lymphocytes Absolute Auto 1.8 X10*3/uL (1.2-4.9); Mean Corpuscular HGB Conc 32.4 g/dl (31.0-36.0); Mean Corpuscular Hemoglobin 27.3 pg (27.0-33.0); Mean Corpuscular Volume 84.1 fL (80.0-98.0); Monocytes Absolute Auto 0.5 X10*3/uL (0.1-1.2); Monocytes Percent Auto 7.5 % (2-11); Neutrophils Absolute Auto 3.9 x10*3/uL (2.0-8.3); Neutrophils Percent Auto 61.9 % (45-73); Platelet Count 204 X10*3/uL (160-400); Red Blood Count 3.96 X10*6/uL (4.60-5.80); Red Cell Distribution Width 16.2 % (11.0-16.0); White Blood Count 6.3 X10*3/uL (4.8-10.8)
[2023-06-29 11:48] LABS: INTERNATIONAL NORM RATIO 1.3 (0.9-1.1); Prothrombin Time 16.4 SEC (11.1-13.3)
[2023-06-29 12:33] LABS: Anion Gap 14 (12-20); Blood Urea Nitrogen 26 mg/dL (9-16); Calcium 9.5 mg/dL (8.4-10.2); Carbon Dioxide 22 mmol/L (22-29); Chloride 110 mmol/L (96-108); Estimated Glomerular Filt Rate 50; Glucose Random 162 mg/dL (60-115); Potassium 3.9 mmol/L (3.3-5.1); Sodium 142 mmol/L (135-145)
== END 2023-06-29 10:11 | disposition home or self-care (01) ==
LOC: HO.WFDLDS 10:10
PROVIDERS: Visit Provider Internal Medicine
DX: I47.29 Other ventricular tachycardia (principal); I48.19 Other persistent atrial fibrillation
CPT/HCPCS: 36415; 80048; 85025; 85610

== ENCOUNTER → 2023-07-05 23:59 | Outpatient (BNV) | payer MEDICARE, MEDICAID, SELFPAY | PROVIDERS: PCP Internal Medicine; Visit Provider Internal Medicine Cardiovascular Disease | DX: I47.29 Other ventricular tachycardia (principal); I49.3 Ventricular premature depolarization | CPT/HCPCS: 93458; 99152 ==

== ENCOUNTER 2023-07-19 12:46 | Outpatient (REF) | payer MEDICARE, MEDICAID, SELFPAY ==
--- NOTE | 2023-07-19 14:17 | MHC.AU.HA3 ---
Hearing Instrument Follow-Up- Binaural Date of Visit: 07/19/23 Right Ear: Mannie, Model, Color, Serial Number: [id number] [employer] Marshal Repair Warranty: 11/16/2024 [employer] Marshal Loss and Damage Warranty: 11/16/2024 [facility] Service Plan: Battery Size: Rechargeable Medicare Contact Specialist/Slim Tube: 1M Earmold/Dome/CShell/SlimTip: Type of Wax Guard: CeruShield Dispensed By: [facility] Date of Fittin09/04/2021 Left Ear: Mannie, Model, Color, Serial Number: [id number] Air Marshal Repair Warranty: 11/16/2024 [employer] Marshal Loss and Damage Warranty: 11/16/2024 [facility] Service Plan: Battery Size: Rechargeable Medicare Contact Specialist/Slim Tube: 1M Earmold/Dome/CShell/SlimTip: Type of Wax Guard: CeruShield Dispensed By: [facility] Date of Fittin09/04/2021 Follow-Up Summary: Aids dropped off broken . Found both wax guards clogged, tail misplaced. Cleaned aids, replaced domes, replaced tails, changed wax guard right. Could not change wax guard left due to amount of cerumen in the bag sewer, had to replace bag sewer under warranty. Recommendations: Recommendations: Hearing instrument maintenance in 6 months, or sooner if needed. Recommendations (Other): Bring aids in more frequently for cleaning. Diagnosis Code(s): Primary Diagnosis: H90.3 Bilateral Sensorineural Hearing Loss Signature: Provider: Matthias Oleary, [facility]
== END 2023-07-19 12:47 | disposition home or self-care (01) ==
LOC: HO.HAP 12:46
PROVIDERS: Visit Provider Internal Medicine
DX: Z13.89 Encounter for screening for other disorder (principal)

== ENCOUNTER 2023-07-19 12:55 | Outpatient (AMB) | payer MEDICARE, MEDICAID, SELFPAY ==
[2023-07-19 13:17] VITALS: BP 130/52; PULSE 59; O2SAT 97; BMI 43.7
--- NOTE | 2023-07-19 13:17 | A.OFFVIS_ITS ---
Intake Vital Signs 07/19/23 13:17 Height 5 ft 11 in Weight 313 lb 11.485 oz BMI 43.7 BP 130/52 L Blood Pressure Location Rt brachial Position Sitting Pulse 59 Pulse Source Pulse Oximeter Pulse Oximetry (%) 97 Oxygen Delivery Method Room Air Intake Visit Reasons: Crohn's colitis Intake Note: Patient last seen 04/16/23 presents today for follow up and test results after holding MTX for 2 weeks. Community Health Nurse Staff Required: No Accompanied by: Spouse Allergies tramadol Allergy (Mild, Verified 07/19/23 13:27) Dizziness Medication List - Last Reconciled 07/19/23 by Viral Balderrama MD acetaminophen ER (Tylenol Arthritis Pain) 1,300 mg PO Q8H amlodipine 10 mg PO QAM apixaban (Eliquis) 5 mg PO BID ferrous sulfate 324 mg PO DAILY furosemide 80 mg PO QAM insulin syringe,safetyneedle (Assure ID Insulin Safety) 25 mg methotrxate weekly insulin syringe-needle U-100 (BD Veo Insulin Syringe Ultra-Fine) As directed losartan 100 mg PO QAM multivitamin 1 tab PO DAILY pantoprazole 40 mg PO QAM wifzzlsm-obys-dwbcf-oreg-capry 100 mg-150 mg- 50 mg-150 mg 1 cap PO DAILY vedolizumab 300 mg IV Q8W HPI HPI Comments History of Present Illness Details 68 yoM with a PMH of Crohns disease and IBD related arthritis who presents for follow-up. Patient was scheduled for left cubital tunnel release, carpal tunnel release back in May, surgery was postponed as patient's heart rate dropped to the 30s. Per she believes that he was having sleep apnea which caused bradycardia, he was eventually evaluated bar a cardiac furnace installer helper and had a Holter monitor. He was eventually cleared to proceed with surgery. Surgery is now scheduled 07/31. Remains on methotrexate 15 mg weekly. Has not had any pain or swelling in his hands. States that he gets pain in his feet when he walks. He has known flat feet. Per Dr. Manuel: Presents for follow-up of initial testing. At last visit, patient received a prednisone taper which he states significantly helped his joint pain. He has now completed the prednisone and some of his joint pain has returned. From last visit: Patient is currently on Entyvio for his Crohns. He was previously treated with Humira however did not respond to therapy in terms of his bowel disease or his joint pain. He reports a few years of joint pain mostly located in his hands, feet, and neck. He has swelling located in his MCPs and PIPs as well as nodules by both elbows. Has stiffness in his hands and is unable to make fists. States that his feet feel like he is walking on glass. He was given a prednisone taper by his PCP which helped immensely with his pain and swelling. He was also given Sulfasalazine by Dr Taylor in GI and took it for a couple of weeks but states that it did not help his joint pain. Unable to take NSAIDs as he is on Eliquis for Afib. No family history of RA, SLE, Crohns, Psoriasis or Psoriatic Arthritis. [facility] Medical History COVID-19 Claustrophobia Arthritis Atrial septal defect Atrial fibrillation Gouty tophi of joint Restrictive lung disease Cervical spondylosis Epidermal cyst Essential hypertension Chronic right heart failure Crohn's disease TIFFANY on CPAP Morbid obesity Surgical History History of colon resection History of excision of epidermal inclusion cyst (~03/27/21) History of esophagogastroduodenoscopy (EGD) Status post surgical atrial septal defect closure History of colonoscopy Family History Father Hx of Crohn's disease Cancer Mother Hx of type 2 diabetes mellitus Social History Are you a primary career representative to a significant other at home: No Do you presently have visiting nurse or other home services: No Alcohol intake: never Comment: occasional cane/walker if needed for balance Patient Tobacco Use Status: Former Tobacco user Quit Date: age 24 Tobacco use type: Cigarette Years Smoked: 10 +/- Current occupational status: retired Current occupation: right hand dominant Review of Systems Musc Details: Bilateral feet pain with walking Neuro Reports Sensory deficit (Neuro) Physical Exam Vital Signs: Last Vital Signs Pulse 59 07/19/23 13:17 BP 130/52 L 07/19/23 13:17 Pulse Ox 97 07/19/23 13:17 Oxygen Delivery Method Room Air 07/19/23 13:17 BMI result Body Mass Index 43.7 Const General: cooperative, healthy appearing and comfortable Nutritional Appearance: obese morbidly obese Orientation/consciousness: patient oriented x3 Limitations: no limitations and ambulation with cane HEENT Head: Yes normocephalic and Yes atraumatic Resp Effort & Inspection: normal respiratory effort and able to speak in complete sentences Cardio Rate: regular rate Skin General skin exam: no rashes or lesions noted Neuro General: patient oriented x3 Sensory Exam: Sensory deficit (Neuro) Extrem Other: Bilateral diffuse MCP puffiness without tenderness Negative MCP squeeze test bilaterally No wrist swelling or tenderness bilaterally, no pain with full flexion and extension Bilateral reduced steel cutter strength Negative Tinel sign Bilateral nodules just anterior to the elbows nontender swelling of both elbows, olecranon bursae Assessment & Plan Assessment & Plan (1) Arthritis associated with inflammatory bowel disease: Code(s): K63.9 - Disease of intestine, unspecified; M07.60 - Enteropathic arthropathies, unspecified site Plan: This is a 68-year-old male with IBD related arthritis who returns for follow-up. For his Crohn's disease patient failed Humira even weekly dosing, he was switched to Entyvio with improvement. Currently on methotrexate 15 mg subQ once weekly. Upon evaluation today I do not see any signs of active inflammatory arthritis. Patient's symptoms are mostly due to carpal tunnel syndrome. Last visit, patient's labs showed mild anemia, thrombocytopenia in the setting of mildly reduced kidney function. I held his methotrexate with improvement of his cytopenias. He did not feel any worsening of symptoms when methotrexate was held Patient is scheduled for left carpal tunnel release, left cubital tunnel release and excision of left elbow mass by Dr. Colin 07/31. Advised patient to hold methotrexate for now. Follow-up with me in 4 weeks. (2) Carpal tunnel syndrome on both sides: Code(s): G56.03 - Carpal tunnel syndrome, bilateral upper limbs Plan: This seems to be his most bothersome symptom. As well as cubital tunnel. He is scheduled for surgery for left cubital tunnel and left carpal tunnel as mentioned above (3) Gouty tophi of joint: Code(s): M1A.9XX1 - Chronic gout, unspecified, with tophus (tophi) Plan: Patient has hard swellings just anterior to both elbows, I also believe he has tophi affecting his left ear Pinna. Surprisingly however he has never had any attacks suggestive of gout flare-ups. His uric acid level is significantly elevated. His mother had gout. If pathology from swellings anterior to elbow show gouty tophi, patient will definitely qualify for urate lowering therapy. His uric acid level was significantly elevated. Plan I spent 25 minutes reviewing patient's chart, evaluating patient, counseling patient & his and documenting in the chart Coding Level of Care Code Est Pt Level 4 (06754) Diagnoses Arthritis associated with inflammatory bowel disease K63.9; M07.60 Carpal tunnel syndrome on both sides G56.03 Gouty tophi of joint M1A.9XX1
== END 2023-07-19 13:50 | disposition home or self-care (01) ==
PROVIDERS: PCP Internal Medicine; Visit Provider Student in an Organized Health Care Education/Training Program
DX: K63.9 Disease of intestine, unspecified (principal); M07.60 Enteropathic arthropathies, unspecified site; G56.03 Carpal tunnel syndrome, bilateral upper limbs; M1A.9XX1 Chronic gout, unspecified, with tophus (tophi)
CPT/HCPCS: 99214

== ENCOUNTER → 2023-07-19 12:55 | Outpatient (BNVA) | payer MEDICARE, MEDICAID, SELFPAY | PROVIDERS: PCP Internal Medicine; Visit Provider Student in an Organized Health Care Education/Training Program | DX: K63.9 Disease of intestine, unspecified (principal); M1A.9XX1 Chronic gout, unspecified, with tophus (tophi); G56.03 Carpal tunnel syndrome, bilateral upper limbs; M07.60 Enteropathic arthropathies, unspecified site | CPT/HCPCS: 99212 ==

== ENCOUNTER 2023-07-20 14:46 | Outpatient (REF) | payer MEDICARE, MEDICAID, SELFPAY | END 2023-07-20 14:47 | disposition home or self-care (01) | LOC: HO.HAP 14:46 | PROVIDERS: Visit Provider Internal Medicine | DX: Z46.1 Encounter for fitting and adjustment of hearing aid (principal); H90.3 Sensorineural hearing loss, bilateral | CPT/HCPCS: 99499 ==

== ENCOUNTER 2023-07-20 14:58 | Outpatient (AMB) | payer MEDICARE, MEDICAID, SELFPAY ==
--- NOTE | 2023-07-20 15:09 | MHC.OFFVIS ---
Intake Vital Signs 07/20/23 15:10 Height 5 ft 11 in Weight 310 lb 13.628 oz BMI 43.4 BP 148/60 H Blood Pressure Location Lt brachial Position Sitting Pulse 54 Intake Visit Reasons: follow up cath Intake Note: follow up In Flight Refueling Manager Required: No Accompanied by: Spouse Allergies tramadol Allergy (Mild, Verified 07/20/23 15:11) Dizziness Medication List - Last Reconciled 07/20/23 by Sathya Chun MD acetaminophen ER (Tylenol Arthritis Pain) 1,300 mg PO Q8H amlodipine 10 mg PO QAM apixaban (Eliquis) 5 mg PO BID ferrous sulfate 324 mg PO DAILY furosemide 80 mg PO QAM insulin syringe,safetyneedle (Assure ID Insulin Safety) 25 mg methotrxate weekly insulin syringe-needle U-100 (BD Veo Insulin Syringe Ultra-Fine) As directed losartan 100 mg PO QAM multivitamin 1 tab PO DAILY pantoprazole 40 mg PO QAM brnsnwtg-qius-rydoi-oreg-capry 100 mg-150 mg- 50 mg-150 mg 1 cap PO DAILY vedolizumab 300 mg IV Q8W HPI HPI Comments History of Present Illness Details Hector is here for follow-up for various issues including chronic right heart failure, atrial fibrillation on others. He also needs preoperative evaluation for carpal tunnel surgery. From the cardiac standpoint, he really does not have any clear-cut symptoms. Doing fine. He actually went for the operative surgery but apparently bradycardic and also had PVCs and hence the surgery itself was canceled. After that, he underwent a cardiac catheterization and also had EP consultation. COUNT INCLUDES THE [facility] Medical History COVID-19 Claustrophobia Arthritis Atrial septal defect Atrial fibrillation Gouty tophi of joint Restrictive lung disease Cervical spondylosis Epidermal cyst Essential hypertension Chronic right heart failure Crohn's disease TIFFANY on CPAP Morbid obesity Surgical History History of colon resection History of excision of epidermal inclusion cyst (~03/27/21) History of esophagogastroduodenoscopy (EGD) Status post surgical atrial septal defect closure History of colonoscopy Family History Father Hx of Crohn's disease Cancer Mother Hx of type 2 diabetes mellitus Social History Are you a primary pharmacy care coordinator to a significant other at home: No Do you presently have visiting nurse or other home services: No Alcohol intake: never Comment: occasional cane/walker if needed for balance Patient Tobacco Use Status: Former Tobacco user Quit Date: age 24 Tobacco use type: Cigarette Years Smoked: 10 +/- Current occupational status: retired Current occupation: right hand dominant Review of Systems Const Denies weakness ENT Denies dizziness Card Denies chest pain, Denies chest pain with activity, Denies syncope, Denies rapid heart rate, Denies pedal edema, Denies edema, Denies leg edema, Denies lightheadedness, Denies palpitations, Denies dyspnea, Denies dyspnea on exertion and Denies orthopnea Resp Denies cough, Denies dyspnea and Denies dyspnea on exertion GI Denies hematochezia and Denies change in stool character Musc Denies abnormal gait, Denies muscle cramps, Denies muscle weakness, Denies numbness, Denies radiating pain into limb and Denies tingling Neuro Denies abnormal gait, Denies dizziness, Denies syncope, Denies numbness, Denies tingling and Denies weakness Endo Denies palpitations Physical Exam Vital Signs: Last Vital Signs Pulse 54 07/20/23 15:10 BP 148/60 H 07/20/23 15:10 BMI result Body Mass Index 43.4 Const General: comfortable and no acute distress Orientation/consciousness: patient oriented x3 HEENT Other: Unremarkable Head: Yes normal to inspection Neck Neck: Yes normal visual inspection Chest Chest palpation & inspection: normal inspection of the chest Resp Auscultation: clear to auscultation bilaterally Cardio Palpation: normal PMI Heart sounds: S1 normal heart sound present, S2 normal heart sound present, no gallops, no murmurs and no rubs GI Palpation (GI): Soft to palpation Back/Spine/Pelvis Other: unremarkable Skin General skin exam: no rashes or lesions noted Neuro General: patient oriented x3 Extrem General: Yes normal to inspection Psych Mental Status: mental status grossly normal Assessment & Plan Assessment & Plan (1) Persistent atrial fibrillation: Code(s): I48.19 - Other persistent atrial fibrillation Plan: Runs relatively slow ventricular rates. Continue anticoagulation. In the most recent Holter, average ventricular rate was 48/Min with range of 41-95/Min. Frequent PVCs with a burden of 3%. Short runs for 21 beats. (2) Chronic right heart failure: Code(s): I50.812 - Chronic right heart failure Plan: Stable, on diuretics. (3) Status post surgical atrial septal defect closure: Comment: age 10 for repair ASD & age 19 for collapsed valve repair Code(s): Z98.890 - Other specified postprocedural states Plan: In the 1960s, he had ASD closure and in the 70s, pulmonary valvulotomy. No recent concerns. (4) Essential hypertension: Code(s): I10 - Essential (primary) hypertension Plan: Somewhat on the higher side. He is already on losartan as well as amlodipine. Not much room further medications as he also has CKD. (5) TIFFANY on CPAP: Comment: KNOWN CASE OF SEVERE OBSTRUCTIVE SLEEP APNEA. HE REQUIRES USE OF BIPAP WITH PRESSURE SETTING 24/20 CM. HE IS VERY COMPLIANT AND BENEFITS FROM THE USE OF CPAP. THERE IS SOME AIR LEAK. Code(s): G47.33 - Obstructive sleep apnea (adult) (pediatric); Z99.89 - Dependence on other enabling machines and devices Plan: Continue CPAP. (6) Preoperative cardiovascular examination: Code(s): Z01.810 - Encounter for preprocedural cardiovascular examination Plan: Cardiac catheterization shows normal coronary arteries. In the recent echocardiogram, LVEF 60-65%. No significant valvular issues. Mozc-to-qakutghggg decreased right ventricular function. Due to concern for bradycardia perioperatively due to slow ventricular rates, we discussed options. Discussed with LIANNE Munoz. Options are doing a temporary transvenous pacer preoperatively to avoid any significant bradycardia during surgery. Need to also see if we can just do a permanent pacemaker as he clearly has slow ventricular rates and also frequent PVCs/NSVT. If heart rate is supported, might be able to use beta-blockers to reduce PVC burden. Final plan to be decided. Discussed with Dr. Bills from anesthesia. Plan Discussed with significant other who came for appointment. Total time spent including review of clinical data, counseling, documentation, coordination of care with other specialists-55 minutes. Coding Level of Care Code Est Pt Level 5 (05636) Diagnoses Persistent atrial fibrillation I48.19 Chronic right heart failure I50.812 Status post surgical atrial septal defect closure Z98.890 Essential hypertension I10 TIFFANY on CPAP G47.33; Z99.89 Preoperative cardiovascular examination Z01.810
[2023-07-20 15:10] VITALS: BP 148/60; PULSE 54; BMI 43.4
== END 2023-07-20 15:34 | disposition home or self-care (01) ==
PROVIDERS: PCP Internal Medicine; Visit Provider Internal Medicine
DX: I48.19 Other persistent atrial fibrillation (principal); I50.812 Chronic right heart failure; Z87.74 Personal history of (corrected) congenital malformations of heart and circulatory system; I10 Essential (primary) hypertension; G47.33 Obstructive sleep apnea (adult) (pediatric); Z99.89 Dependence on other enabling machines and devices
CPT/HCPCS: 99215

== ENCOUNTER → 2023-07-20 14:58 | Outpatient (BNVA) | payer MEDICARE, MEDICAID, SELFPAY | PROVIDERS: PCP Internal Medicine; Visit Provider Internal Medicine | DX: Z01.810 Encounter for preprocedural cardiovascular examination (principal); I11.0 Hypertensive heart disease with heart failure; I50.812 Chronic right heart failure; I48.19 Other persistent atrial fibrillation; G47.33 Obstructive sleep apnea (adult) (pediatric); Z98.890 Other specified postprocedural states; Z99.89 Dependence on other enabling machines and devices | CPT/HCPCS: 99212 ==

== ENCOUNTER 2023-07-27 14:34 | Outpatient (AMB) | payer MEDICARE, MEDICAID, SELFPAY ==
--- NOTE | 2023-07-27 14:53 | MHC.OFFVIS ---
Intake Vital Signs 07/27/23 14:53 Height 51 ft Weight 310 lb BMI 0.6 Intake Visit Reasons: Preop LT Cub vs trans, CTR, BX tophi 08/01/23 AR Intake Note: Hector 68 yr old male presents today for his pre-op visit to sign consents for his left hand CTR and cubital release that is schedule for 08/01/23. Allergies tramadol Allergy (Mild, Verified 07/20/23 15:11) Dizziness HPI Preop LT Cub vs trans, CTR, BX tophi 08/01/23 AR HPI Details Hector is a 68 year old right hand dominant man who presents to discuss treatment for his bilateral carpal tunnel & cubital tunnel syndrome. He was scheduled for a right carpal & cubital tunnel release, as well as an excisional biopsy to test for uric acid. This was cancelled by anesthesia due to cardiac issues, including a pacemaker. He also reported having COVID ~2 weeks prior to his pre-op appointment with anesthesia. When he was last seen by Carie on 06/06/2023 the patient expressed that he would prefer to start with his left hand rather than his right. He is scheduled for a left carpal & cubital tunnel release, plus excisional biopsy of a forearm mass, on 08/01/23. He has Crohn's disease and is on both Methotrexate & Entyvio. he says his next appointment is sometime in November. Entyvio is evidently dose every 8 weeks and his next dose is due on August 21. Dr. Taylor feels it is fine to proceed with the surgery, and notes that he will hold the next dose of Entyvio for 2 weeks to allow for wound healing. Dr. Chun has spoken with the patient and his about stopping the Eliquis on Tuesday before his Tuesday surgery. Given the patient's medical conditions, I believe anesthesia feels that the surgeries are best performed under a regional block with sedation rather than general anesthesia. [facility] Medical History COVID-19 Claustrophobia Arthritis Atrial septal defect Atrial fibrillation Gouty tophi of joint Restrictive lung disease Cervical spondylosis Epidermal cyst Essential hypertension Chronic right heart failure Crohn's disease TIFFANY on CPAP Morbid obesity Surgical History History of colon resection History of excision of epidermal inclusion cyst (~03/27/21) History of esophagogastroduodenoscopy (EGD) Status post surgical atrial septal defect closure History of colonoscopy Family History Father Hx of Crohn's disease Cancer Mother Hx of type 2 diabetes mellitus Social History Are you a primary neonatal intensive care nurse to a significant other at home: No Do you presently have visiting nurse or other home services: No Alcohol intake: never Comment: occasional cane/walker if needed for balance Patient Tobacco Use Status: Former Tobacco user Quit Date: age 24 Tobacco use type: Cigarette Years Smoked: 10 +/- Current occupational status: retired Current occupation: right hand dominant Review of Systems Const All systems reviewed & are unremarkable except as noted in HPI and below Physical Exam Vital Signs: BMI result Body Mass Index 0.6 Const General: no acute distress and alert Orientation/consciousness: patient oriented x3 Neuro General: patient oriented x3 Extrem Other: Evaluation of Left Upper Extremity: The patient is alert, oriented, and in no acute distress Neuro: Dense numbness in the median nerve distribution bilaterally. Decreased sensation in the right small finger today. Dense numbness in the left ulnar nerve distribution Some thenar wasting Good APB muscle belly firing, and he could abduct and adduct his fingers. Vascular: Cap refill brisk ROM: He can fully extend all his digits and get his hands flat on a table He had significant stiffness in his fingers today, with minimal flexion at the PIP & DIP joints. He can flex his MCP joints to ~80 degrees. For this reason he can not make a fist. he has relatively good flexion of the left ring finger at the PIP joint, to perhaps 80 or 90 degrees. He could bring his index, middle, and small finger PIP joints to ~20-30 degrees of flexion We worked on left hand ROm exercises for more than 20 minutes today in clinic He has large rheumatoid nodules on the extensor surfaces of both forearms, measuring ~2*4cm in size Radiographs three views of the left hand from 12/16/2020 were reviewed by me today in clinic: Most significant finding is some early basal joint arthritis. Nerve Conduction Study: IMPRESSION: 1. This is an abnormal study. 2. There is electrodiagnostic evidence for bilateral moderate-severe median neuropathy at the wrist, consistent with carpal tunnel syndrome. 3. There is electrodiagnostic evidence for bilateral ulnar neuropathy, most likely at the elbow. 4. There is no electrodiagnostic evidence for brachial plexopathy, or cervical radiculopathy. Thank you for your kind referral. Dede Mullins MD, SUSANNE 02/17/23 Psych Appearance: grossly normal Affect: normal affect Attitude: cooperative Office Procedures Fracture Care Details: No fracture, manual therapy on the digits of the left hand for more than 15 minutes [id number] Fracture Billing Code: Fracture Billing Code Assessment & Plan Assessment & Plan (1) Cubital tunnel syndrome of both upper extremities: Code(s): G56.23 - Lesion of ulnar nerve, bilateral upper limbs (2) Carpal tunnel syndrome on both sides: Code(s): G56.03 - Carpal tunnel syndrome, bilateral upper limbs (3) Persistent atrial fibrillation: Code(s): I48.19 - Other persistent atrial fibrillation (4) Diabetes: Code(s): E11.9 - Type 2 diabetes mellitus without complications (5) Arthritis associated with inflammatory bowel disease: Code(s): K63.9 - Disease of intestine, unspecified; M07.60 - Enteropathic arthropathies, unspecified site (6) Stiffness of joints of both hands: Code(s): M25.641 - Stiffness of right hand, not elsewhere classified; M25.642 - Stiffness of left hand, not elsewhere classified Plan Assessment & Plan: 1. Left Carpal tunnel syndrome, moderate-severe With dense numbness 2. Left Cubital tunnel syndrome With dense numbness I educated him about this condition I discussed operative and non-operative treatment options The patient would like to proceed with surgery, beginning with the right side The risks and benefits of operative treatment were discussed with the patient and the patient wishes to proceed with surgery. These risks include, but are not limited to risk of damage to blood vessels, nerves, tendons, infection, recurrence, incomplete relief of preoperative symptoms, persistent pain, possible need for further surgery and the risks associated with regional blocks and anesthesia. He understands that he will likely be awake for surgery. He will receive a regional block for surgery, before an injection done to his carpal tunnel & forearm mass for surgery The plan is to take the patient to the operating room sometime on 08/01/23 for the following procedures: 1. Left Carpal tunnel release, 2. Left Cubital tunnel release vs transposition, 3. Left upper extremity excisional biopsy of mass, In consulting with Dr. Mckeon of anesthesia, the plan is to perform a regional block of the left upper extremity, and they will also provide him with some sedation. We will be using a tourniquet in the proximal aspect of the left upper extremity. I also intend to inject both the carpal tunnel, and about the mass to be excised with some lidocaine with epinephrine so that we may proceed with these procedures without the tourniquet if necessary. All of the preoperative paperwork including the consent was filled out today. All the patient's questions were answered. The patient understands that they will be contacted by our surgery attendant soon to schedule this procedure He denies asthma or kidney issues He is a Diabetic, his most recent HgA1c was 4.8% on 12/14/22 He has a hx of Afib and is on Eliquis. He has cardiac clearance and knows he needs to stop Eliquis 2 days prior to surgery He has Crohn's disease, he takes Entyvio. His next Entyvio is scheduled for 08/2023 according to his , and this should not be an issue and I spoke with Dr. Taylor concerning this, he will delay his next dose, which is scheduled for 08/22/2023, by 2 weeks to allow for wound healing.. He has RA and is on methotrexate for this. He will need to speak with his media coordinator for when to stop his Methotrexate in relation to his surgery. He has sleep apnea & COPD, and uses CPAP. Dr. Bills has been in discussion on how to safely adjust his sedation to avoid the use of a Pacemaker 3. Bilateral hand stiffness Significant stiffness in multiple PIP & DIP joints He has difficulties making a fist or grasping objects I discussed the importance of improving his motion prior to surgery We worked on ROM exercises for more than 20 minutes today in clinic We will likely need to get him in with OT hand therapy after surgery. 4. Right Carpal tunnel syndrome, moderate-severe With dense numbness 5. Right Cubital tunnel syndrome Normal sensation today in clinic 6. Right ring finger trigger finger 7. Masses over the extensor surfaces of bilateral forearms. Thought to be consistent with gouty tophi versus rheumatoid nodules. Dr. Saleem camarillo has asked that I take a biopsy of 1 of these nodules to confirm whether or not he has gout versus another etiology. Please note that greater than 65 minutes was spent with this patient going over the history, evaluating the patient and radiographs, formulating possible treatment options, discussing them with the patient, and documenting the visit. Scribed for Casandra Colin MD by Jaycob Gruber, medical assisting program director, on 07/27/23 at 3:10 PM, EST. Coding Level of Care Code Est Pt Level 5 (06518) Diagnoses Cubital tunnel syndrome of both upper extremities G56.23 Carpal tunnel syndrome on both sides G56.03 Persistent atrial fibrillation I48.19 Diabetes E11.9 Arthritis associated with inflammatory bowel disease K63.9; M07.60 Stiffness of joints of both hands M25.641; M25.642 CPT Codes Fracture Care - Fracture Billing Code: Fracture Billing Code ([id number])
== END 2023-07-27 15:44 | disposition home or self-care (01) ==
PROVIDERS: PCP Internal Medicine; Visit Provider Orthopaedic Surgery
DX: G56.23 Lesion of ulnar nerve, bilateral upper limbs (principal); G56.03 Carpal tunnel syndrome, bilateral upper limbs; I48.19 Other persistent atrial fibrillation; E11.9 Type 2 diabetes mellitus without complications; K63.9 Disease of intestine, unspecified; M07.60 Enteropathic arthropathies, unspecified site; M25.641 Stiffness of right hand, not elsewhere classified; M25.642 Stiffness of left hand, not elsewhere classified
CPT/HCPCS: 99215

== ENCOUNTER → 2023-07-27 14:34 | Outpatient (BNVA) | payer MEDICARE, MEDICAID, SELFPAY | PROVIDERS: PCP Internal Medicine; Visit Provider Orthopaedic Surgery | DX: Z01.818 Encounter for other preprocedural examination (principal); G56.03 Carpal tunnel syndrome, bilateral upper limbs; G56.23 Lesion of ulnar nerve, bilateral upper limbs; M25.641 Stiffness of right hand, not elsewhere classified; M25.642 Stiffness of left hand, not elsewhere classified; M07.60 Enteropathic arthropathies, unspecified site; K63.9 Disease of intestine, unspecified | CPT/HCPCS: 99212 ==

== ENCOUNTER 2023-08-01 05:50 | Day surgery (SDC) | payer MEDICARE, MEDICAID, SELFPAY ==
[2023-08-01 06:46] VITALS: BMI 44.0
[2023-08-01 06:50] VITALS: BP 147/58; PULSE 61; RESP 18; TEMP 37.2; O2SAT 97
[2023-08-01] MEDS: Lactated Ringers 1,000 ML 50 ML IVCONT (07:00)
--- NOTE | 2023-08-01 08:18 | MHC.SHP ---
Pre-Procedural Eval Section A - 24 Hr Update-Section A only Date of Service: 08/01/23 The patient is an INPATIENT: No Changes since office visit: No Cold of Flu in the past 2 weeks, No New Medical Problems, No Changes in Medication and No Patient answered all questions The patient has been examined within 24 hours of the surgical procedure. The History & Physical has been completed within 30 days and I have reviewed it.: Yes Section B - Complete if H&P > 30 days Chief Complaint: chronic gout w/tophus,lesion of ulnar,carpaltunnel Allergies: Allergies Allergy/AdvReac Type Severity Reaction Status Date / Time tramadol Allergy Mild Dizziness Verified 08/01/23 06:42 Plan I have reviewed the history and physical and performed a pertinent physical examination on my patient. No changes have occurred unless specified. Time Spent With Patient Time: Total time managing care of this patient today ____ minutes.
--- NOTE | 2023-08-01 08:19 | W.PM.OPN ---
Operative Note Operative Note Date of Service: 08/01/23 Narrative: Operative Note Narrative: Preop diagnosis: 1. Left cubital tunnel syndrome 2. Left carpal tunnel syndrome 3. Left forearm soft tissue mass Postop diagnosis: Same Procedure: 1. Left cubital tunnel release and anterior ulnar nerve transposition 2. Left carpal tunnel release 3. Left forearm soft tissue mass excisional biopsy Surgeon: Casandra Colin MD Anesthesia: regional block Findings: Thickening of the transverse carpal ligament, an hourglass deformity noted of the ulnar nerve as it passed through the cubital tunnel, subluxation of the ulnar nerve noted with elbow flexion, white multi lobular soft tissue mass consistent with a gouty tophi Implants: None Tourniquet time: 87 minutes EBL: 5.0 ml Specimen: Left forearm soft tissue mass sent for histopathology, and also for evaluation of uric acid crystals Drains: None Complications: None Disposition: Brought to the recovery room in stable condition Plan: Follow-up in 10-14 days for wound check, suture removal and to check pathology and crystals analysis Encourage early exercises to work on finger range of motion. Early referral to OT to help him begin working on finger range of motion exercises again. Does have significant stiffness in the fingers of both hands. Indications: The patient is a 68 year old man with left cubital tunnel syndrome, left carpal tunnel syndrome, and a left forearm soft tissue mass that we are biopsying for rheumatology . The risks and benefits of operative treatment, including but not limited to risk of damage to blood vessels, nerves, tendons, infection, recurrence, persistent pain or numbness, incomplete resolution of preoperative symptoms, or need for further surgery were discussed with the patient and they wished to proceed with surgery. Procedure: Once consent was obtained patient was brought back to the operating suite and placed in the operating table in a supine position. A regional block was performed by the anesthesia team. Perioperative antibiotics and sedation was administered by the anesthesia team. A tourniquet was applied to the proximal aspect of the left upper extremity and the limb was prepped and draped in a standard surgical fashion. The limb was elevated exsanguinated with Esmarch bandage and the tourniquet inflated to 250 mm of mercury for a total tourniquet time of 87 minutes. Once assured that we had a good block, a 2.0 cm longitudinal incision was made centered over the left carpal tunnel. The incision was made through the skin to the subcutaneous tissues using a #15 blade. Dissection was made down to the level of the transverse carpal ligament with care being taken to protect the palmar cutaneous nerve. Once the transverse carpal ligament was clearly visualized, a longitudinal incision was made in the transverse carpal ligament 1st using a #15 blade, then using tenotomy scissors under direct visualization. Care was taken to look for and protect the motor branch of the median nerve when seen in this area. Once satisfied with our carpal tunnel release the wound was irrigated with normal saline. A 6 cm gently curved but longitudinally oriented incision was made centered over the cubital tunnel of the left upper extremity.? Incision was made through the skin to the subcutaneous tissues using a # 15 Blade.? I then dissected down to the level of the medial epicondyle and the cubital tunnel using tenotomy scissors.? Care was taken to protect the lateral antebrachial cutaneous nerve.? ?The ulnar nerve was identified just posterior to the medial intermuscular septum.? The ulnar nerve was released in a proximal to distal direction using tenotomy in iris scissors while directly visualizing and protecting the ulnar nerve.? Thickening and fibrosis was appreciated about the ulnar nerve as it passed through the cubital tunnel.? The ulnar nerve was assessed as I passed the elbow through full flexion and extension and was found to sublux anterior to the medial epicondyle with elbow flexion. As the ulnar nerve appeared to subluxate over the medial epicondyle, the decision was made to proceed with an anterior ulnar nerve transposition.? The subcutaneous tissue was carefully freed from the fascia anterior to the medial epicondyle creating an appropriate bed for the ulnar nerve transposition.? A small vessel loop was passed behind the ulnar nerve to help facilitate its mobilization.? The ulnar nerve was then freed and carefully transposed anterior to the medial epicondyle.? Some of the subcutaneous tissue in the anterior flap? was carefully secured to the fascia about the medial epicondyle using some 3-0 Vicryl suture material.? This created a sling to prevent posterior subluxation of the ulnar nerve.? The elbow was brought through flexion and extension and the ulnar nerve was evaluated in its transposition site and found to have good ability to glide and to be free from undo pressure from the anterior sling. I made a longitudinally oriented incision centered over the soft tissue mass over the proximal ulnar aspect of the left forearm. I then carefully dissected down to the soft tissue mass using tenotomy and iris scissors. There was a multi lobular white soft tissue mass consistent with a gouty tophus that measured approximately 2 cm in diameter. I mobilize the mass from the surrounding soft tissues including the fascia over the proximal aspect of the ulna. This was done using tenotomy and iris scissors. The mass was then removed and placed on the back table to be sent for histopathology and for evaluation of uric acid crystals. At this point the tourniquet was deflated and hemostasis obtained with a brief period of local pressure and bipolar electrocautery. The wounds were copiously irrigated with normal saline. The subcutaneous layer was closed with 4-0 Vicryl suture, and the skin edges were reapproximated with 4-0 and 5 0 Prolene suture. The wounds were infiltrated with some 1% lidocaine with epinephrine for postop pain control and a sterile dressing was applied. A posterior splint was also applied to the elbow holding the elbow in about 40 degrees of flexion. The patient appears to have tolerated the procedure well and with no complications. All digits were well vascularized conclusion of the case.
--- NOTE | 2023-08-01 08:36 | HO.ANESPROP2 ---
HPI - Anesthesia Eval Consult details Narrative: forcubital tunnel and carpal release under block only due to cardiac reasons, plan concurred with surgeon and cardiology [facility] Active Problems Active Problems: All Active Problems (Updated 06/22/23 @ 12:16 by Symone Hoang RN) NSVT (nonsustained ventricular tachycardia) (Acute) Cubital tunnel syndrome on left (Acute) Carpal tunnel syndrome on left (Acute) Gouty tophi of joint (Acute) Preoperative cardiovascular examination (Acute) Stiffness of joints of both hands (Acute) Cubital tunnel syndrome of both upper extremities (Acute) Carpal tunnel syndrome on both sides (Acute) Arthritis associated with inflammatory bowel disease (Acute) Tingling of both upper extremities (Acute) Persistent atrial fibrillation (Acute) Bilateral hand pain (Acute) Bilateral foot pain (Acute) Arthropathy (Acute) Crohn's colitis (Acute) Restrictive lung disease (Acute) Cervical spondylosis (Acute) Epidermal cyst (Acute) Essential hypertension (Acute) Status post surgical atrial septal defect closure (Acute) Chronic right heart failure (Acute) TIFFANY on CPAP (Acute) Morbid obesity (Acute) Past Medical History Medical History COVID-19 Claustrophobia Arthritis Atrial septal defect Atrial fibrillation Gouty tophi of joint Restrictive lung disease Cervical spondylosis Epidermal cyst Essential hypertension Chronic right heart failure Crohn's disease TIFFANY on CPAP Morbid obesity Family History Family History Father Hx of Crohn's disease Cancer Mother Hx of type 2 diabetes mellitus Family history of problems with anesthesia: No Surgical History Surgical History History of colon resection History of excision of epidermal inclusion cyst (~03/27/21) History of esophagogastroduodenoscopy (EGD) Status post surgical atrial septal defect closure History of colonoscopy History of Problems with Anesthesia: No Social History Social History Are you a primary rn intensive care unit to a significant other at home: No Do you presently have visiting nurse or other home services: No Alcohol intake: never Comment: occasional cane/walker if needed for balance Patient Tobacco Use Status: Former Tobacco user Quit Date: age 22 Tobacco use type: Cigarette Years Smoked: 10 +/- Use of substances other than those prescribed or required for medical reasons: No Are you DNR?: No Advance Directives: No Advance Directives Information Provided: Yes Current occupational status: retired Current occupation: right hand dominant Meds Allergies Allergy/AdvReac Type Severity Reaction Status Date / Time tramadol Allergy Mild Dizziness Verified 08/01/23 06:42 Active Medications: Current Medications Lactated Ringer's (Lr) 1,000 mls @ 50 mls/hr IVCONT .Q20H SHELDON Last Admin: 08/01/23 07:00 Dose: 50 mls/hr Home Medications Medication Instructions Recorded Confirmed Last Taken Type amlodipine 10 mg tablet 10 mg PO QAM 03/03/20 08/01/23 08/01/23 05:10 History vedolizumab 300 mg intravenous 300 mg IV Q8W 12/16/20 08/01/23 Unknown History solution (Entyvio) ferrous sulfate 324 mg (65 mg 324 mg PO DAILY 12/25/20 08/01/23 Unknown History iron) tablet,delayed release acetaminophen 650 mg 1,300 mg PO Q8H 06/01/21 08/01/23 Unknown History tablet,extended release (Tylenol Arthritis Pain) turmeric 100 mg-sparkle 150 1 cap PO DAILY 06/01/21 08/01/23 Unknown History mg-olive 50 mg-oreg 150 mg-capryl capsule multivitamin 1 tab PO DAILY 09/15/22 08/01/23 Unknown History furosemide 40 mg tablet 80 mg PO QAM 01/20/23 08/01/23 Unknown History insulin syringe-needle U-100 1/2 #10 ea 02/25/23 08/01/23 Unknown History mL 31 gauge x 15/64 (BD Veo Insulin Syringe Ultra-Fine) losartan 100 mg tablet 100 mg PO QAM 06/06/23 08/01/23 Unknown History pantoprazole 40 mg tablet,delayed 40 mg PO QAM 06/06/23 08/01/23 08/01/23 05:10 History release methotrexate sodium 25 mg/mL 25 mg subcut QWEEK 08/01/23 08/01/23 07/13/23 History injection solution Exam Height,Weight and Vital Signs: Height 5 ft 11 in Weight 142.972 kg Last Vital Signs Temp 99.0 F 08/01/23 06:50 Pulse 61 08/01/23 06:50 Resp 18 08/01/23 06:50 BP 147/58 H 08/01/23 06:50 Pulse Ox 97 08/01/23 06:50 O2 Del Method Room Air 08/01/23 06:50 Airway Mallampati Class: III TM Dist: <=3cm Neck ROM: Limited Heart: bundle block Lungs: cta Assessment and Plan Assessment Anesthesia Assessment: Anesthesia Plan Discussed and Chart Reviewed Final Anesthetic Review Family History of Problems with Anesthesia: No History of Problems with Anesthesia: No NPO: Yes ASA Class: IV Final Preanesthetic Review: No Changes in Pt Med Stat, Meds/Allgs Chart Reviewed, Consent Obtained/Reviewed and Anes Risks/Benef Reviewed Patient Risk: High Procedure Risk: Low Anesthetic Plan Anesthetic Plan: Regional Block Disposition: Standard PACU
[2023-08-01 10:52] VITALS: BP 148/67; PULSE 68; RESP 15; TEMP 36.7; O2SAT 98
[2023-08-01 11:07] VITALS: BP 142/39; PULSE 63; RESP 18; O2SAT 99
[2023-08-01 11:22] VITALS: BP 152/43; PULSE 71; RESP 18; TEMP 36.5; O2SAT 97
== END 2023-08-01 12:46 | disposition home or self-care (01) ==
PROVIDERS: PCP Internal Medicine; Visit Provider Orthopaedic Surgery
PROC: (CPT 64718; principal; 2023-08-01 07:30)
PROC: (CPT 64721; 2023-08-01 07:30)
PROC: (CPT 64721; 2023-08-01 07:30)
DX: G56.02 Carpal tunnel syndrome, left upper limb (principal); G56.22 Lesion of ulnar nerve, left upper limb; M1A.9XX1 Chronic gout, unspecified, with tophus (tophi); I48.91 Unspecified atrial fibrillation; I11.0 Hypertensive heart disease with heart failure; I50.812 Chronic right heart failure; J98.4 Other disorders of lung; F40.240 Claustrophobia; G47.33 Obstructive sleep apnea (adult) (pediatric); Z99.89 Dependence on other enabling machines and devices; Z88.8 Allergy status to other drugs, medicaments and biological substances; Z98.890 Other specified postprocedural states
CPT/HCPCS: 64721; 64718; 11402; 88304; J0171; J0665; J0690; J1100; J2250; J2795

== ENCOUNTER → 2023-08-01 05:50 | Outpatient (BNV) | payer MEDICARE, MEDICAID, SELFPAY | PROVIDERS: PCP Internal Medicine; Visit Provider Orthopaedic Surgery | DX: G56.02 Carpal tunnel syndrome, left upper limb (principal); G56.22 Lesion of ulnar nerve, left upper limb; M1A.9XX1 Chronic gout, unspecified, with tophus (tophi) | CPT/HCPCS: 25075; 64718; 64721 ==

== ENCOUNTER 2023-08-16 09:46 | Outpatient (AMB) | payer MEDICARE, MEDICAID, SELFPAY ==
--- NOTE | 2023-08-16 09:53 | MHC.OFFVIS ---
Intake Intake Visit Reasons: PO LT Cub vs trans, CTR, BX tophi 08/01/23 AR Intake Note: Hector 68 yr old male presents today for his PO visit for her left Cubital, CTR & BX tophi 08/01/23 AR. States he still has tingling in his hand. He is very swollen and is not able tyo make a full close fist. Sutures removed and steri strips applied. Allergies tramadol Allergy (Mild, Verified 08/16/23 09:54) Dizziness HPI PO LT Cub vs trans, CTR, BX tophi 08/01/23 AR HPI Details Hector is a 68 year old right hand dominant man who returns S/P left carpal tunnel release, cubital tunnel release with anterior transposition, and forearm excision of gouty tophi, DOS: 08/01/23. He says he continues to have numbness & tingling in his left hand, but improvement in his nighttime symptoms. He complains of his hand being swollen and he is not able to make a closed fist. His has been helping him with his motion at home, and he says he is able to place his hand flat on a table. He says his right hand continues to wake him up at night. He has RA & Crohn's disease and is on both Methotrexate & Entyvio for these conditions. Please see my previous note from 03/15/23 & 07/27/23 for more information [facility] Medical History COVID-19 Claustrophobia Arthritis Atrial septal defect Atrial fibrillation Gouty tophi of joint Restrictive lung disease Cervical spondylosis Epidermal cyst Essential hypertension Chronic right heart failure Crohn's disease TIFFANY on CPAP Morbid obesity Surgical History History of colon resection History of excision of epidermal inclusion cyst (~03/27/21) History of esophagogastroduodenoscopy (EGD) Status post surgical atrial septal defect closure History of colonoscopy Family History Father Hx of Crohn's disease Cancer Mother Hx of type 2 diabetes mellitus Social History Are you a primary hearing healthcare practitioner to a significant other at home: No Do you presently have visiting nurse or other home services: No Alcohol intake: never Comment: occasional cane/walker if needed for balance Patient Tobacco Use Status: Former Tobacco user Quit Date: age 22 Tobacco use type: Cigarette Years Smoked: 10 +/- Current occupational status: retired Current occupation: right hand dominant Review of Systems Const All systems reviewed & are unremarkable except as noted in HPI and below Physical Exam Const General: no acute distress and alert Orientation/consciousness: patient oriented x3 Neuro General: patient oriented x3 Extrem Other: The patient was alert oriented and in no acute distress The incision is healing well with no erythema drainage or evidence of infection. Sutures removed and Steri-Strips applied He can fully extend all his digits and get his hands flat on a table He had significant stiffness in his fingers again today, with minimal flexion at the PIP & DIP joints. He can flex his MCP joints to ~80 degrees. For this reason he can not make a fist. he has relatively good flexion of the left ring finger at the PIP joint, to ~80 or 90 degrees. He could bring his index, middle, and small finger PIP joints to ~20-30 degrees of flexion Dense numbness to the tips of all digits of the left hand. Dense numbness in the median nerve distribution of the right hand. Normal sensation in the ulnar nerve distribution of the right hand Cap refill brisk Pathology report 08/01/23 Diagnosis A. Soft tissue, left forearm mass, excision: Tophaceous gout. B. Soft tissue, left forearm mass #2, excision: Tophaceous gout Nerve Conduction Study: IMPRESSION: 1. This is an abnormal study. 2. There is electrodiagnostic evidence for bilateral moderate-severe median neuropathy at the wrist, consistent with carpal tunnel syndrome. 3. There is electrodiagnostic evidence for bilateral ulnar neuropathy, most likely at the elbow. 4. There is no electrodiagnostic evidence for brachial plexopathy, or cervical radiculopathy. Thank you for your kind referral. Dede Mullins MD, SUSANNE 02/17/23 Psych Appearance: grossly normal Affect: normal affect Attitude: cooperative Assessment & Plan Assessment & Plan (1) Carpal tunnel syndrome on left: Code(s): G56.02 - Carpal tunnel syndrome, left upper limb (2) Cubital tunnel syndrome on left: Code(s): G56.22 - Lesion of ulnar nerve, left upper limb (3) Persistent atrial fibrillation: Code(s): I48.19 - Other persistent atrial fibrillation (4) Diabetes: Code(s): E11.9 - Type 2 diabetes mellitus without complications (5) Stiffness of joints of both hands: Code(s): M25.641 - Stiffness of right hand, not elsewhere classified; M25.642 - Stiffness of left hand, not elsewhere classified (6) Gouty tophi of joint: Code(s): M1A.9XX1 - Chronic gout, unspecified, with tophus (tophi) (7) NSVT (nonsustained ventricular tachycardia): Code(s): I47.29 - Other ventricular tachycardia (8) Carpal tunnel syndrome of right wrist: Code(s): G56.01 - Carpal tunnel syndrome, right upper limb (9) Cubital tunnel syndrome on right: Code(s): G56.21 - Lesion of ulnar nerve, right upper limb Plan Assessment & Plan: 1. Left Carpal tunnel syndrome, moderate-severe Pre-operatively with dense numbness Now with dense numbness but good improvement in his nighttime symptoms 2. Left Cubital tunnel syndrome Pre-operatively with dense numbness Now with dense numbness but good improvement in his nighttime symptoms 3. Gouty Tophi over the extensor surfaces of bilateral forearms, S/P excision of right-sided forearm gouty tophi DOS: 08/01/23 4. Bilateral hand stiffness Significant stiffness in multiple PIP & DIP joints He has difficulties making a fist or grasping objects The patient appears to be doing well post-operatively I educated him about the post-operative course I explained the signs and symptoms of infection, if the patient develops any new or worsening erythema, drainage, pain, or warmth they should contact the clinic or attend the ED. I discussed activity modifications, he is to lift nothing heavier than a cellphone for the next two weeks I ordered OT hand therapy to work on ROM exercises bilaterally. He will perform gentle ROM exercises at home He should avoid any underwater activities for the next 5 days He should gently massage about the incision site to reduce the risk of hypersensitivity 5. Right Carpal tunnel syndrome, moderate-severe With dense numbness 6. Right Cubital tunnel syndrome Normal sensation today in clinic He will follow up 6 weeks to discuss treatment options. Please note that because of his cardiac condition anesthesia felt we needed to proceed with surgery on 08/01/2023 in the form of a block with no general anesthesia. 7. Right ring finger trigger finger No complaints today Scribed for Casandra Colin MD by Jaycob Gruber, diagnostic medical sonographer, on 08/16/23 at 10:20 AM, EST. Orders: Orders OT Evaluation and Treatment Today G56.01 - Carpal tunnel syndrome, right upper limb, G56.02 - Carpal tunnel syndrome, left upper limb, G56.21 - Lesion of ulnar nerve, right upper limb, G56.22 - Lesion of ulnar nerve, left upper limb, M1A.9XX1 - Chronic gout, unspecified, with tophus (tophi), M25.641 - Stiffness of right hand, not elsewhere classified, M25.642 - Stiffness of left hand, not elsewhere classified Coding Level of Care Code Global (00383) Diagnoses Carpal tunnel syndrome on left G56.02 Cubital tunnel syndrome on left G56.22 Persistent atrial fibrillation I48.19 Diabetes E11.9 Stiffness of joints of both hands M25.641; M25.642 Gouty tophi of joint M1A.9XX1 NSVT (nonsustained ventricular tachycardia) I47.29 Carpal tunnel syndrome of right wrist G56.01 Cubital tunnel syndrome on right G56.21
== END 2023-08-16 10:30 | disposition home or self-care (01) ==
PROVIDERS: PCP Internal Medicine; Visit Provider Orthopaedic Surgery
DX: G56.03 Carpal tunnel syndrome, bilateral upper limbs (principal); G56.23 Lesion of ulnar nerve, bilateral upper limbs; I48.19 Other persistent atrial fibrillation; E11.9 Type 2 diabetes mellitus without complications; M25.641 Stiffness of right hand, not elsewhere classified; M25.642 Stiffness of left hand, not elsewhere classified; M1A.9XX1 Chronic gout, unspecified, with tophus (tophi); I47.29 Other ventricular tachycardia
CPT/HCPCS: 99024

== ENCOUNTER → 2023-08-16 09:46 | Outpatient (BNVA) | payer MEDICARE, MEDICAID, SELFPAY | PROVIDERS: PCP Internal Medicine; Visit Provider Orthopaedic Surgery | DX: G56.03 Carpal tunnel syndrome, bilateral upper limbs (principal); G56.23 Lesion of ulnar nerve, bilateral upper limbs; M25.641 Stiffness of right hand, not elsewhere classified; M25.642 Stiffness of left hand, not elsewhere classified; M1A.9XX1 Chronic gout, unspecified, with tophus (tophi); I48.19 Other persistent atrial fibrillation; I47.29 Other ventricular tachycardia; E11.9 Type 2 diabetes mellitus without complications | CPT/HCPCS: 99212 ==

== ENCOUNTER 2023-08-23 11:59 | Outpatient (AMB) | payer MEDICARE, MEDICAID, SELFPAY ==
[2023-08-23 12:29] VITALS: BP 144/76; PULSE 53; O2SAT 97; BMI 44.0
--- NOTE | 2023-08-23 12:29 | A.OFFVIS_ITS ---
Intake Vital Signs 08/23/23 12:29 Height 5 ft 11 in Weight 315 lb 4.176 oz BMI 44.0 BP 144/76 H Blood Pressure Location Rt brachial Position Sitting Pulse 53 Pulse Source Pulse Oximeter Pulse Oximetry (%) 97 Oxygen Delivery Method Room Air Intake Visit Reasons: Gout/cm Intake Note: Patient last seen 07/19/23 presents today for follow up. s/p L CTS surgery Dr Colin Orthopaedic Nurse Required: No Accompanied by: Allergies tramadol Allergy (Mild, Verified 08/23/23 12:35) Dizziness Medication List - Last Reconciled 08/23/23 by Viral Balderrama MD acetaminophen ER (Tylenol Arthritis Pain) 1,300 mg PO Q8H amlodipine 10 mg PO QAM amoxicillin-pot clavulanate 875-125 mg 1 tab PO BID apixaban (Eliquis) 5 mg PO BID ferrous sulfate 324 mg PO DAILY furosemide 80 mg PO QAM insulin syringe,safetyneedle (Assure ID Insulin Safety) 25 mg methotrxate weekly insulin syringe-needle U-100 (BD Veo Insulin Syringe Ultra-Fine) As directed losartan 100 mg PO QAM methotrexate sodium 25 mg subcut QWEEK multivitamin 1 tab PO DAILY pantoprazole 40 mg PO QAM tefetpye-aihw-htlgx-oreg-capry 100 mg-150 mg- 50 mg-150 mg 1 cap PO DAILY vedolizumab (Entyvio) 300 mg IV Q8W HPI HPI Comments History of Present Illness Details 68 yoM with a PMH of Crohns disease and IBD related arthritis who presents for follow-up. Patient has been off his methotrexate for about a month now in preparation for his carpal tunnel and cubital tunnel release. He is s/p left carpal tunnel and left cubital tunnel release 07/31 as well as gouty tophi excision by Dr. Colin. The pathology confirmed gout. Patient states that since he has been off the methotrexate he has been having worsening pain, swelling and stiffness of both hands. Difficulty making a fist. Would like to go back on it as soon as he can Per Dr. Manuel: Presents for follow-up of initial testing. At last visit, patient received a prednisone taper which he states significantly helped his cristiane nt pain. He has now completed the prednisone and some of his joint pain has returned. From last visit: Patient is currently on Entyvio for his Crohns. He was previously treated with Humira however did not respond to therapy in terms of his bowel disease or his joint pain. He reports a few years of joint pain mostly located in his hands, feet, and neck. He has swelling located in his MCPs and PIPs as well as nodules by both elbows. Has stiffness in his hands and is unable to make fists. States that his feet feel like he is walking on glass. He was given a prednisone taper by his PCP which helped immensely with his pain and swelling. He was also given Sulfasalazine by Dr Taylor in GI and took it for a couple of weeks but states that it did not help his joint pain. Unable to take NSAIDs as he is on Eliquis for Afib. No family history of RA, SLE, Crohns, Psoriasis or Psoriatic Arthritis. [facility] Medical History COVID-19 Claustrophobia Arthritis Atrial septal defect Atrial fibrillation Gouty tophi of joint Restrictive lung disease Cervical spondylosis Epidermal cyst Essential hypertension Chronic right heart failure Crohn's disease TIFFANY on CPAP Morbid obesity Surgical History History of colon resection History of excision of epidermal inclusion cyst (~03/27/21) History of esophagogastroduodenoscopy (EGD) Status post surgical atrial septal defect closure History of colonoscopy Family History Father Hx of Crohn's disease Cancer Mother Hx of type 2 diabetes mellitus Social History Are you a primary tree care foreman to a significant other at home: No Do you presently have visiting nurse or other home services: No Alcohol intake: never Comment: occasional cane/walker if needed for balance Patient Tobacco Use Status: Former Tobacco user Quit Date: age 22 Tobacco use type: Cigarette Years Smoked: 10 +/- Current occupational status: retired Current occupation: right hand dominant Review of Systems Musc Reports arthralgias, Reports joint swelling and Reports stiffness Neuro Reports Sensory deficit (Neuro) Physical Exam Vital Signs: Last Vital Signs Pulse 53 08/23/23 12:29 BP 144/76 H 08/23/23 12:29 Pulse Ox 97 08/23/23 12:29 Oxygen Delivery Method Room Air 08/23/23 12:29 BMI result Body Mass Index 44.0 Const General: cooperative, healthy appearing and comfortable Nutritional Appearance: obese morbidly obese Orientation/consciousness: patient oriented x3 Limitations: no limitations HEENT Head: Yes normocephalic and Yes atraumatic Resp Effort & Inspection: normal respiratory effort and able to speak in complete sentences Cardio Rate: regular rate Skin General skin exam: no rashes or lesions noted Neuro General: patient oriented x3 Sensory Exam: Sensory deficit (Neuro) Extrem Other: Bilateral diffuse MCP puffiness, few are actually swollen and tender today. Bilateral positive MCP squeeze test Few swollen and tender PIPs bilaterally and reduced hand emergency management director strength bilaterally Bilateral reduced emergency management director strength Negative Tinel sign Large gouty tophi distal to both elbows. Smaller on the left (some was surgically excised) Results Reviewed Results Reviewed: Surgical pathology 07/2023 Diagnosis A. Soft tissue, left forearm mass, excision: Tophaceous gout. B. Soft tissue, left forearm mass #2, excision: Tophaceous gout Assessment & Plan Assessment & Plan (1) Arthritis associated with inflammatory bowel disease: Comment: Failed p.o. methotrexate. Did well on subcu methotrexate Code(s): K63.9 - Disease of intestine, unspecified; M07.60 - Enteropathic arthropathies, unspecified site Plan: This is a 68-year-old male with IBD related arthritis who returns for follow-up. For his Crohn's disease patient failed Humira even weekly dosing, he was switched to Entyvio with improvement. He was doing fairly well on methotrexate 15 mg subcu weekly. Methotrexate has been held for about a month in preparation for his carpal tunnel and cubital tunnel release procedure. Patient is having recurrent synovitis affecting his hands. Will need to restart methotrexate. Restart methotrexate at 15 mg subcutaneously weekly Continue folic acid 1 mg daily Labs before next visit in 2 months (2) Gouty tophi of joint: Code(s): M1A.9XX1 - Chronic gout, unspecified, with tophus (tophi) Plan: No history of gout flare-ups or kidney stones however has biopsy proven gouty tophi distal to both elbows. Mother had gout. Uric acid level 12.9. Will need to start urate lowering therapy. Start allopurinol 100 mg daily for 2 weeks then 200 mg daily. Discussed possible side effects associated with allopurinol Plan I spent 25 minutes reviewing patient's chart, evaluating patient, ordering diagnostic workup, counseling patient & his and documenting in the chart Orders: Orders Complete Blood Count Auto Diff 2 Months Z79.631 - termite control representative (current) use of antimetabolite agent Comprehensive Met. Panel 2 Months Z79.631 - termite control representative (current) use of antimetabolite agent Uric Acid 2 Months M1A.9XX1 - Chronic gout, unspecified, with tophus (tophi) C Reactive Protein 2 Months Z79.631 - termite control representative (current) use of antimetabolite agent Erythrocyte Sedimentation Rate 2 Months Z79.631 - termite control representative (current) use of antimetabolite agent Medications: New allopurinol orally; orally daily; take 1 tab daily for 2 weeks then 2 tabs daily 120 tabs 0RF Coding Level of Care Code Est Pt Level 4 (61193) Diagnoses Arthritis associated with inflammatory bowel disease K63.9; M07.60 Gouty tophi of joint M1A.9XX1
== END 2023-08-23 12:51 | disposition home or self-care (01) ==
PROVIDERS: PCP Internal Medicine; Visit Provider Student in an Organized Health Care Education/Training Program
DX: K63.9 Disease of intestine, unspecified (principal); M07.60 Enteropathic arthropathies, unspecified site; M1A.9XX1 Chronic gout, unspecified, with tophus (tophi)
CPT/HCPCS: 99214

== ENCOUNTER → 2023-08-23 11:59 | Outpatient (BNVA) | payer MEDICARE, MEDICAID, SELFPAY | PROVIDERS: PCP Internal Medicine; Visit Provider Student in an Organized Health Care Education/Training Program | DX: M1A.9XX1 Chronic gout, unspecified, with tophus (tophi) (principal); K63.9 Disease of intestine, unspecified; M07.60 Enteropathic arthropathies, unspecified site; Z79.631 Long term (current) use of antimetabolite agent | CPT/HCPCS: 99212 ==

== ENCOUNTER 2023-09-27 09:30 | Outpatient (AMB) | payer MEDICARE, MEDICAID, SELFPAY ==
[2023-09-27 09:32] VITALS: BMI 43.9
--- NOTE | 2023-09-27 09:32 | MHC.OFFVIS ---
Vital Signs 09/27/23 09:32 Height 5 ft 11 in Weight 315 lb BMI 43.9 Intake Visit Reasons: PO LT Cub vs trans, CTR, BX tophi 08/01/23 AR Intake Note: Hector 68 yr old male presents today for her PO visit for left cubital & CTR, BX tophi 08/01/23 AR. States he cont's to have numbness and tingling in his hand however its better than before. He has had little improvement with O.T and was able to put on his sock this morning. He would like to discuss CTR in his right hand. He reports he doesn't have numbness in his right pinky. Also wanted to make it know he was tested positive for gout. Allergies tramadol Allergy (Mild, Verified 09/27/23 09:33) Dizziness HPI HPI PO LT Cub vs trans, CTR, BX tophi 08/01/23 AR: Details: Hector is a 68 year old right hand dominant man who returns to discuss his bilateral hand stiffness, and right carpal tunnel syndrome. He is S/P left carpal tunnel release, cubital tunnel release with anterior transposition, and forearm excision of gouty tophi, DOS: 08/01/23. He says he continues to have numbness & tingling in his left hand, but improvement in his nighttime symptoms. His has been helping him with his motion at home, and he says he is able to place his hand flat on a table. He has been attending OT hand therapy, and says he has mildly improved his stiffness. He was happy today when he said he was able to put his own sock on this morning. He says his has been making sure he has been performing his exercises at home. He says his right hand continues to wake him up at night. He has constant numbness in the median nerve distribution, and denies any small finger numbness. He has RA & Crohn's disease and is on both Methotrexate & Entyvio for these conditions. Please see my previous note from 03/15/23 & 07/27/23 for more information [facility] Medical History COVID-19 Claustrophobia Arthritis Atrial septal defect Atrial fibrillation Gouty tophi of joint Restrictive lung disease Cervical spondylosis Epidermal cyst Essential hypertension Chronic right heart failure Crohn's disease TIFFANY on CPAP Morbid obesity Surgical History History of colon resection History of excision of epidermal inclusion cyst (~03/27/21) History of esophagogastroduodenoscopy (EGD) Status post surgical atrial septal defect closure History of colonoscopy Family History Father Hx of Crohn's disease Cancer Mother Hx of type 2 diabetes mellitus Social History Are you a primary healthcare science specialist to a significant other at home: No Do you presently have visiting nurse or other home services: No Alcohol intake: never Comment: occasional cane/walker if needed for balance Patient Tobacco Use Status: Former Tobacco user Quit Date: age 22 Tobacco use type: Cigarette Years Smoked: 10 +/- Current occupational status: retired Current occupation: right hand dominant Physical Exam Vital Signs: BMI result Body Mass Index 43.9 Const General: no acute distress and alert Orientation/consciousness: patient oriented x3 Neuro General: patient oriented x3 Extrem Other: The patient was alert oriented and in no acute distress He can fully extend all his digits and get his hands flat on a table He had significant stiffness in his fingers again today, with minimal flexion at the PIP & DIP joints. He can flex his MCP joints to ~80 degrees. For this reason he can not make a fist. he has relatively good flexion of the left ring finger at the PIP joint, to ~80 or 90 degrees. He could bring his index, middle, and small finger PIP joints to ~20-30 degrees of flexion Dense numbness to the tips of all digits of the left hand. Dense numbness in the median nerve distribution of the right hand. Normal sensation in the ulnar nerve distribution of the right hand Cap refill brisk Pathology report 08/01/23 Diagnosis A. Soft tissue, left forearm mass, excision: Tophaceous gout. B. Soft tissue, left forearm mass #2, excision: Tophaceous gout Nerve Conduction Study: IMPRESSION: 1. This is an abnormal study. 2. There is electrodiagnostic evidence for bilateral moderate-severe median neuropathy at the wrist, consistent with carpal tunnel syndrome. 3. There is electrodiagnostic evidence for bilateral ulnar neuropathy, most likely at the elbow. 4. There is no electrodiagnostic evidence for brachial plexopathy, or cervical radiculopathy. Thank you for your kind referral. Dede Mullins MD, SUSANNE 02/17/23 Psych Appearance: grossly normal Affect: normal affect Attitude: cooperative Assessment & Plan Assessment & Plan (1) Carpal tunnel syndrome of right wrist: Code(s): G56.01 - Carpal tunnel syndrome, right upper limb Category: Medical (2) Carpal tunnel syndrome on left: Code(s): G56.02 - Carpal tunnel syndrome, left upper limb Category: Medical (3) Cubital tunnel syndrome on left: Code(s): G56.22 - Lesion of ulnar nerve, left upper limb Category: Medical (4) Persistent atrial fibrillation: Code(s): I48.19 - Other persistent atrial fibrillation Category: Medical (5) Stiffness of joints of both hands: Code(s): M25.641 - Stiffness of right hand, not elsewhere classified; M25.642 - Stiffness of left hand, not elsewhere classified Category: Medical (6) Gouty tophi of joint: Code(s): M1A.9XX1 - Chronic gout, unspecified, with tophus (tophi) Category: Medical (7) NSVT (nonsustained ventricular tachycardia): Code(s): I47.29 - Other ventricular tachycardia Category: Medical (8) Cubital tunnel syndrome on right: Code(s): G56.21 - Lesion of ulnar nerve, right upper limb Category: Medical Plan Assessment & Plan: 1. Right Carpal tunnel syndrome , moderately severe With dense numbness I educated him about this condition I discussed operative and non-operative treatment options The patient would like to proceed with surgery, beginning with the right side The risks and benefits of operative treatment were discussed with the patient and the patient wishes to proceed with surgery. These risks include, but are not limited to risk of damage to blood vessels, nerves, tendons, infection, recurrence, incomplete relief of preoperative symptoms, persistent pain, possible need for further surgery and the risks associated with regional blocks and anesthesia. He understands that he will likely be awake for surgery. He will receive a regional block for surgery, before an injection done to his carpal tunnel & forearm mass for surgery The plan is to take the patient to the operating room sometime in the next few months for the following procedures: 1. Right Carpal tunnel release, under local All of the preoperative paperwork including the consent was filled out today. All the patient's questions were answered. The patient understands that they will be contacted by our vascular surgery physician soon to schedule this procedure. This should be for sometime in the end of November due to his Entyvio. He denies asthma or kidney issues He is a Diabetic, his most recent HgA1c was 4.8% on 12/14/22 He has a hx of Afib and is on Eliquis. He has cardiac clearance and does not need to stop his Eliquis He has Crohn's disease, he takes Entyvio. We will need to discuss with Dr. Taylor concerning stopping this medication prior to surgery. He is scheduled for his next infusion on 10/18/23. Last surgery he delayed his Entyvio infusion by an extra 2 weeks to allow for wound healing. He has RA and is on methotrexate for this. He will need to speak with his tobacco sample puller for when to stop his Methotrexate in relation to his surgery. He has sleep apnea & COPD, and uses CPAP. 2. Bilateral hand stiffness Significant stiffness in multiple PIP & DIP joints He has difficulties making a fist or grasping objects He has improved his function slightly with OT hand therapy but continues to be limited. He does say he was able to put his own socks on this morning, which he was not able to do prior to this. He will continue with OT hand therapy to work on stretching, strengthening, and normalizing hand function He will continue to work on at-home exercises 3. Right Cubital tunnel syndrome Normal sensation today in clinic We will monitor this and manage conservatively If he develops any worsening symptoms he will follow up to discuss treatment options. 4. Left Carpal tunnel syndrome, S/P release DOS: 08/01/23 Pre-operatively with dense numbness Now with dense numbness but good improvement in his nighttime symptoms 5. Left Cubital tunnel syndrome, S/P release DOS: 08/01/23 Pre-operatively with dense numbness Now with dense numbness but good improvement in his nighttime symptoms 6. Gouty Tophi over the extensor surfaces of bilateral forearms, S/P excision of left-sided forearm gouty tophi DOS: 08/01/23 7. Right ring finger trigger finger No complaints today Scribed for Casandra Colin MD by Jaycob Gruber, claim review medical director, on 09/27/23 at 10:10 AM, EST. Scribe Plan - Not visible on output: Scribed for Casandra Colin MD by Jaycob Gruber claim review medical director, on [ ] at [ ], EST. Coding Level of Care Code Est Pt Level 4 (01619) Diagnoses Carpal tunnel syndrome of right wrist G56.01 Carpal tunnel syndrome on left G56.02 Cubital tunnel syndrome on left G56.22 Persistent atrial fibrillation I48.19 Stiffness of joints of both hands M25.641; M25.642 Gouty tophi of joint M1A.9XX1 NSVT (nonsustained ventricular tachycardia) I47.29 Cubital tunnel syndrome on right G56.21
== END 2023-09-27 10:27 | disposition home or self-care (01) ==
PROVIDERS: PCP Internal Medicine; Visit Provider Orthopaedic Surgery
DX: G56.03 Carpal tunnel syndrome, bilateral upper limbs (principal); G56.23 Lesion of ulnar nerve, bilateral upper limbs; M25.641 Stiffness of right hand, not elsewhere classified; M25.642 Stiffness of left hand, not elsewhere classified; I48.19 Other persistent atrial fibrillation; M1A.9XX1 Chronic gout, unspecified, with tophus (tophi); I47.29 Other ventricular tachycardia
CPT/HCPCS: 99214

== ENCOUNTER → 2023-09-27 09:30 | Outpatient (BNVA) | payer MEDICARE, MEDICAID, SELFPAY | PROVIDERS: PCP Internal Medicine; Visit Provider Orthopaedic Surgery | DX: G56.01 Carpal tunnel syndrome, right upper limb (principal); G56.21 Lesion of ulnar nerve, right upper limb; M25.641 Stiffness of right hand, not elsewhere classified; M25.642 Stiffness of left hand, not elsewhere classified; M1A.9XX1 Chronic gout, unspecified, with tophus (tophi); Z86.69 Personal history of other diseases of the nervous system and sense organs | CPT/HCPCS: 99212 ==

== ENCOUNTER 2023-10-04 08:59 | Outpatient (REF) | payer MEDICARE, MEDICAID, SELFPAY ==
[2023-10-04 11:34] LABS: MANUAL DIFF FLAG NO
[2023-10-04 11:44] LABS: Basophils Percent Auto 0.6 % (0-2); Eosinophils Absolute Auto 0.1 X10*3/uL (0.0-0.4); Hematocrit 33.3 % (42.0-52.0); Hemoglobin 10.8 g/dl (14.0-18.0); Imm Gran Abs Auto 0.06 X10*3/uL (0.00-0.03); Imm Gran Pct Auto 1.1 % (0.0-0.4); Lymphocytes Absolute Auto 1.4 X10*3/uL (1.2-4.9); Mean Corpuscular HGB Conc 32.4 g/dl (31.0-36.0); Mean Corpuscular Hemoglobin 27.6 pg (27.0-33.0); Mean Corpuscular Volume 84.9 fL (80.0-98.0); Mean Platelet Volume 11.2 fL (9.4-12.4); Monocytes Absolute Auto 0.4 X10*3/uL (0.1-1.2); Monocytes Percent Auto 7.5 % (2-11); Neutrophils Absolute Auto 3.3 x10*3/uL (2.0-8.3); Neutrophils Percent Auto 62.8 % (45-73); Platelet Count 192 X10*3/uL (160-400); Red Blood Count 3.92 X10*6/uL (4.60-5.80); Red Cell Distribution Width 20.1 % (11.0-16.0); White Blood Count 5.2 X10*3/uL (4.8-10.8)
[2023-10-04 12:07] LABS: Alanine Aminotransferase 9 U/L (0-40); Albumin Level 4.3 g/dL (3.5-5.0); Alkaline Phosphatase 82 U/L (39-117); Anion Gap 19 (12-20); Aspartate Amino Transferase 19 U/L (5-37); Bilirubin Total 0.6 mg/dL (0.0-1.0); Blood Urea Nitrogen 25 mg/dL (9-16); C Reactive Protein 1.24 mg/dL (< or = 0.50); Calcium 9.7 mg/dL (8.4-10.2); Carbon Dioxide 22 mmol/L (22-29); Chloride 106 mmol/L (96-108); Estimated Glomerular Filt Rate 54; Glucose Random 150 mg/dL (60-115); Potassium 4.1 mmol/L (3.3-5.1); Sodium 143 mmol/L (135-145); Total Protein 7.5 g/dL (6.5-8.0); Uric Acid 8.4 mg/dL (3.4-7.0)
[2023-10-04 12:30] LABS: Erythrocyte Sedimentation Rate 23 MM/HR (0-15)
== END 2023-10-04 09:00 | disposition home or self-care (01) ==
LOC: HO.WFDLDS 08:59
PROVIDERS: Visit Provider Student in an Organized Health Care Education/Training Program
DX: M1A.9XX1 Chronic gout, unspecified, with tophus (tophi) (principal); Z79.631 Long term (current) use of antimetabolite agent
CPT/HCPCS: 36415; 80053; 84550; 85025; 85652; 86140

== ENCOUNTER 2023-10-25 11:36 | Outpatient (AMB) | payer MEDICARE, MEDICAID, SELFPAY ==
--- NOTE | 2023-10-25 11:44 | MHC.OFFVIS ---
Vital Signs 10/25/23 11:52 Height 5 ft 11 in Weight 316 lb 12.868 oz BMI 44.2 BP 148/60 H Blood Pressure Location Rt brachial Position Sitting Pulse 47 L Pulse Source Pulse Oximeter Pulse Oximetry (%) 98 Oxygen Delivery Method Room Air Intake Visit Reasons: Gout Intake Note: Patient last seen 08/23/23 presents today for follow up and test results. Reports increase in joint pains since adjusting med, would like to discuss further. Land Development Project Manager Required: No Accompanied by: Spouse Allergies tramadol Allergy (Mild, Verified 10/25/23 11:53) Dizziness Medication List - Last Reconciled 10/25/23 by Viral Balderrama MD acetaminophen ER (Tylenol Arthritis Pain) 1,300 mg PO Q8H allopurinol orally; Take 1 tab by mouth daily for 2 weeks then take 2 tabs daily amlodipine 10 mg PO QAM apixaban (Eliquis) 5 mg PO BID ferrous sulfate 324 mg PO DAILY folic acid 5 mg (5 x 1 mg) PO QWEEK furosemide 80 mg PO QAM insulin syringe,safetyneedle (Assure ID Insulin Safety) 25 mg methotrxate weekly insulin syringe-needle U-100 (BD Veo Insulin Syringe Ultra-Fine) As directed losartan 100 mg PO QAM methotrexate sodium 15 mg (0.6 mL) subcut QWEEK multivitamin 1 tab PO DAILY pantoprazole 40 mg PO QAM pcnwqeev-ccjk-xztym-oreg-capry 100 mg-150 mg- 50 mg-150 mg 1 cap PO DAILY vedolizumab (Entyvio) 300 mg IV Q8W HPI Comments Details: 68 yoM with a PMH of Crohns disease, IBD related arthritis and gout who presents for follow-up. Patient restarted methotrexate at 15 mg weekly since last visit. States that he feels much better with improved joint pain and swelling in his hands but he does not feel as good as he was taking 25 mg weekly. He is doing OT for his hands. He is on allopurinol 200 mg daily. No reported side effects. Per Dr. Manuel: Presents for follow-up of initial testing. At last visit, patient received a prednisone taper which he states significantly helped his joint pain. He has now completed the prednisone and some of his joint pain has returned. From last visit: Patient is currently on Entyvio for his Crohns. He was previously treated with Humira however did not respond to therapy in terms of his bowel disease or his joint pain. He reports a few years of joint pain mostly located in his hands, feet, and neck. He has swelling located in his MCPs and PIPs as well as nodules by both elbows. Has stiffness in his hands and is unable to make fists. States that his feet feel like he is walking on glass. He was given a prednisone taper by his PCP which helped immensely with his pain and swelling. He was also given Sulfasalazine by Dr Taylor in GI and took it for a couple of weeks but states that it did not help his joint pain. Unable to take NSAIDs as he is on Eliquis for Afib. No family history of RA, SLE, Crohns, Psoriasis or Psoriatic Arthritis. [facility] Medical History COVID-19 Claustrophobia Arthritis Atrial septal defect Atrial fibrillation Gouty tophi of joint Restrictive lung disease Cervical spondylosis Epidermal cyst Essential hypertension Chronic right heart failure Crohn's disease TIFFANY on CPAP Morbid obesity Surgical History History of colon resection History of excision of epidermal inclusion cyst (~03/27/21) History of esophagogastroduodenoscopy (EGD) Status post surgical atrial septal defect closure History of colonoscopy Family History Father Hx of Crohn's disease Cancer Mother Hx of type 2 diabetes mellitus Social History Are you a primary med care manager to a significant other at home: No Do you presently have visiting nurse or other home services: No Alcohol intake: never Comment: occasional cane/walker if needed for balance Patient Tobacco Use Status: Former Tobacco user Tobacco use type: Cigarette Years Smoked: 10 +/- Current occupational status: retired Current occupation: right hand dominant Review of Systems Musc Reports arthralgias, Reports joint swelling and Reports stiffness Neuro Reports Sensory deficit (Neuro) Physical Exam Vital Signs: Last Vital Signs Pulse 47 L 10/25/23 11:52 BP 148/60 H 10/25/23 11:52 Pulse Ox 98 10/25/23 11:52 Oxygen Delivery Method Room Air 10/25/23 11:52 BMI result Body Mass Index 44.2 Const General: cooperative, healthy appearing and comfortable Nutritional Appearance: obese morbidly obese Orientation/consciousness: patient oriented x3 Limitations: no limitations HEENT Head: Yes normocephalic and Yes atraumatic Resp Effort & Inspection: normal respiratory effort and able to speak in complete sentences Cardio Rate: regular rate Skin General skin exam: no rashes or lesions noted Neuro General: patient oriented x3 Sensory Exam: Sensory deficit (Neuro) Extrem Other: Bilateral diffuse MCP swelling no tenderness. Negative MCP squeeze test Multiple swollen PIPs bilaterally but no tenderness Bilateral reduced wireless operator strength Negative Tinel sign Large gouty tophi distal to both elbows. Smaller on the left (some was surgically excised) Results Reviewed Results Reviewed: Surgical pathology 07/2023 Diagnosis A. Soft tissue, left forearm mass, excision: Tophaceous gout. B. Soft tissue, left forearm mass #2, excision: Tophaceous gout Assessment & Plan Assessment & Plan (1) Arthritis associated with inflammatory bowel disease: Comment: Failed p.o. methotrexate. Did well on subcu methotrexate for Crohn's failed Humira, did well on Entyvio Code(s): K63.9 - Disease of intestine, unspecified; M07.60 - Enteropathic arthropathies, unspecified site Category: Medical Plan: This is a 68-year-old male with IBD related arthritis returns for follow-up. Methotrexate 15 mg weekly with improved joint swelling in both hands but patient states that he does not feel as well as when he was taking 25 mg weekly. Increase methotrexate to 20 mg weekly continue folic acid 1 mg daily Labs before next visit in 3 months (2) Gouty tophi of joint: Code(s): M1A.9XX1 - Chronic gout, unspecified, with tophus (tophi) Category: Medical Plan: No history of gout flare-ups or kidney stones however has biopsy proven gouty tophi distal to both elbows. Mother had gout. Initial Uric acid level 12.9. Patient now on allopurinol 200 mg daily. Well-tolerated. Uric acid improved to 8.4. Still not at target. Increase allopurinol to 300 mg daily. Check uric acid level before next visit (3) jail methotrexate user: Code(s): Z79.631 - terminal press operator (current) use of antimetabolite agent Category: Medical Plan: Monitor safety labs. 04/2023 patient had acute renal insufficiency that might have been related to a COVID infection likely methotrexate levels were increased causing some anemia and leukopenia, this resolved when methotrexate was discontinued. Started methotrexate at a lower dose 15 mg weekly. Not as effective. Will increase methotrexate to 20 mg weekly and monitor safety labs Plan I spent 25 minutes reviewing patient's chart, evaluating patient, ordering diagnostic workup, counseling patient & his and documenting in the chart Orders: Orders Comprehensive Met. Panel 3 Months K63.9 - Disease of intestine, unspecified, M07.60 - Enteropathic arthropathies, unspecified site, Z79.631 - jail (current) use of antimetabolite agent Complete Blood Count Auto Diff 3 Months K63.9 - Disease of intestine, unspecified, M07.60 - Enteropathic arthropathies, unspecified site, Z79.631 - terminal press operator (current) use of antimetabolite agent C Reactive Protein 3 Months K63.9 - Disease of intestine, unspecified, M07.60 - Enteropathic arthropathies, unspecified site, Z79.631 - terminal press operator (current) use of antimetabolite agent Erythrocyte Sedimentation Rate 3 Months K63.9 - Disease of intestine, unspecified, M07.60 - Enteropathic arthropathies, unspecified site, Z79.631 - terminal press operator (current) use of antimetabolite agent Uric Acid 3 Months M1A.9XX1 - Chronic gout, unspecified, with tophus (tophi) Medications: New allopurinol 300 mg PO DAILY 90 tabs 1RF Discontinued allopurinol Discontinued Reason: Doctor's Order orally; Take 1 tab by mouth daily for 2 weeks then take 2 tabs daily 166 tabs 0RF Coding Level of Care Code Est Pt Level 4 (25794) Diagnoses Arthritis associated with inflammatory bowel disease K63.9; M07.60 Gouty tophi of joint M1A.9XX1 jail methotrexate user Z79.631
[2023-10-25 11:52] VITALS: BP 148/60; PULSE 47; O2SAT 98; BMI 44.2
== END 2023-10-25 12:15 | disposition home or self-care (01) ==
PROVIDERS: PCP Internal Medicine; Visit Provider Student in an Organized Health Care Education/Training Program
DX: K63.9 Disease of intestine, unspecified (principal); M07.60 Enteropathic arthropathies, unspecified site; M1A.9XX1 Chronic gout, unspecified, with tophus (tophi); Z79.631 Long term (current) use of antimetabolite agent
CPT/HCPCS: 99214

== ENCOUNTER → 2023-10-25 11:36 | Outpatient (BNVA) | payer MEDICARE, MEDICAID, SELFPAY | PROVIDERS: PCP Internal Medicine; Visit Provider Student in an Organized Health Care Education/Training Program | DX: K63.9 Disease of intestine, unspecified (principal); M07.60 Enteropathic arthropathies, unspecified site; M1A.9XX1 Chronic gout, unspecified, with tophus (tophi); Z79.631 Long term (current) use of antimetabolite agent | CPT/HCPCS: 99212 ==

== ENCOUNTER 2023-10-31 09:15 | Outpatient (AMB) | payer MEDICARE, MEDICAID, SELFPAY ==
--- NOTE | 2023-10-31 09:33 | A.OFFVIS_ITS ---
Vital Signs 10/31/23 09:34 Height 5 ft 11 in Weight 315 lb 4.176 oz BMI 44.0 BP 130/60 Blood Pressure Location Lt brachial Position Sitting Pulse 54 Pulse Source Pulse Oximeter Intake Visit Reasons: 3 mth f/up Allergies tramadol Allergy (Mild, Verified 10/25/23 11:53) Dizziness Medication List - Last Reconciled 10/31/23 by Sathya Chun MD acetaminophen ER (Tylenol Arthritis Pain) 1,300 mg PO Q8H allopurinol 300 mg PO DAILY amlodipine 10 mg PO QAM apixaban (Eliquis) 5 mg PO BID ferrous sulfate 324 mg PO DAILY folic acid 5 mg (5 x 1 mg) PO QWEEK furosemide 80 mg PO QAM insulin syringe-needle U-100 (BD Insulin Syringe) As directed losartan 100 mg PO QAM methotrexate sodium 15 mg (0.6 mL) subcut QWEEK multivitamin 1 tab PO DAILY pantoprazole 40 mg PO QAM tjstjbxs-gjko-tcded-oreg-capry 100 mg-150 mg- 50 mg-150 mg 1 cap PO DAILY vedolizumab (Entyvio) 300 mg IV Q8W HPI Comments Details: Hector returns for follow-up He has various issues including chronic right heart failure, atrial fibrillation among others. From the cardiac standpoint, he really does not have any clear-cut symptoms. Doing fine. No new issues. [facility] Medical History COVID-19 Claustrophobia Arthritis Atrial septal defect Atrial fibrillation Gouty tophi of joint Restrictive lung disease Cervical spondylosis Epidermal cyst Essential hypertension Chronic right heart failure Crohn's disease TIFFANY on CPAP Morbid obesity Surgical History History of colon resection History of excision of epidermal inclusion cyst (~03/27/21) History of esophagogastroduodenoscopy (EGD) Status post surgical atrial septal defect closure History of colonoscopy Family History Father Hx of Crohn's disease Cancer Mother Hx of type 2 diabetes mellitus Social History Are you a primary ambulatory care to a significant other at home: No Do you presently have visiting nurse or other home services: No Alcohol intake: never Comment: occasional cane/walker if needed for balance Patient Tobacco Use Status: Former Tobacco user Tobacco use type: Cigarette Years Smoked: 10 +/- Current occupational status: retired Current occupation: right hand dominant Review of Systems Const Denies weakness ENT Denies dizziness Card Denies chest pain, Denies chest pain with activity, Denies syncope, Denies rapid heart rate, Denies pedal edema, Denies edema, Denies leg edema, Denies lightheadedness, Denies palpitations, Denies dyspnea, Denies dyspnea on exertion and Denies orthopnea Resp Denies cough, Denies dyspnea and Denies dyspnea on exertion GI Denies hematochezia and Denies change in stool character Musc Denies abnormal gait, Denies muscle cramps, Denies muscle weakness, Denies numbness, Denies radiating pain into limb and Denies tingling Neuro Denies abnormal gait, Denies dizziness, Denies syncope, Denies numbness, Denies tingling and Denies weakness Endo Denies palpitations Physical Exam Vital Signs: Last Vital Signs Pulse 54 10/31/23 09:34 BP 130/60 10/31/23 09:34 BMI result Body Mass Index 44.0 Const General: comfortable and no acute distress Orientation/consciousness: patient oriented x3 HEENT Other: Unremarkable Head: Yes normal to inspection Neck Neck: Yes normal visual inspection Chest Chest palpation & inspection: normal inspection of the chest Resp Auscultation: clear to auscultation bilaterally Cardio Palpation: normal PMI Heart sounds: S1 normal heart sound present, S2 normal heart sound present, no gallops, Murmur heart sound present systolic II/ and no rubs GI Palpation (GI): Soft to palpation Back/Spine/Pelvis Other: unremarkable Skin General skin exam: no rashes or lesions noted Neuro General: patient oriented x3 Extrem General: Yes normal to inspection Psych Mental Status: mental status grossly normal Assessment & Plan Assessment & Plan (1) Persistent atrial fibrillation: Code(s): I48.19 - Other persistent atrial fibrillation Category: Medical Plan: Runs relatively slow ventricular rates. Continue anticoagulation. In the most recent Holter, average ventricular rate was 48/Min with range of 41- 95/Min. Frequent PVCs with a burden of 3%. Short runs for 21 beats. (2) Chronic right heart failure: Code(s): I50.812 - Chronic right heart failure Category: Medical Plan: Stable, on diuretics. (3) Status post surgical atrial septal defect closure: Comment: age 10 for repair ASD & age 19 for collapsed valve repair Code(s): Z98.890 - Other specified postprocedural states Category: Surgical Plan: In the 1960s, he had ASD closure and in the 70s, pulmonary valvulotomy. No recent concerns. (4) Essential hypertension: Code(s): I10 - Essential (primary) hypertension Category: Medical Plan: Stable. He is already on Losartan as well as Amlodipine. Of note, also has CKD. (5) TIFFANY on CPAP: Comment: KNOWN CASE OF SEVERE OBSTRUCTIVE SLEEP APNEA. HE REQUIRES USE OF BIPAP WITH PRESSURE SETTING 24/20 CM. HE IS VERY COMPLIANT AND BENEFITS FROM THE USE OF CPAP. THERE IS SOME AIR LEAK. Code(s): G47.33 - Obstructive sleep apnea (adult) (pediatric); Z99.89 - Dependence on other enabling machines and devices Category: Medical Plan: Continue CPAP. (6) Preoperative cardiovascular examination: Code(s): Z01.810 - Encounter for preprocedural cardiovascular examination Category: Medical Plan: Cardiac catheterization shows normal coronary arteries. In the echocardiogram, LVEF 60-65%. No significant valvular issues. Kcea-ix-qnkycvfuit decreased right ventricular function. Plan for carpal tunnel surgery under local/regional block to avoid any bradycardia issues. Plan Discussed with significant other. Orders: Orders ECG 3 day holter monitor 6 Months I48.19 - Other persistent atrial fibrillation Coding Level of Care Code Est Pt Level 4 (15416) Diagnoses Persistent atrial fibrillation I48.19 Chronic right heart failure I50.812 Status post surgical atrial septal defect closure Z98.890 Essential hypertension I10 TIFFANY on CPAP G47.33; Z99.89 Preoperative cardiovascular examination Z01.810
[2023-10-31 09:34] VITALS: BP 130/60; PULSE 54; BMI 44.0
== END 2023-10-31 09:48 | disposition home or self-care (01) ==
PROVIDERS: PCP Internal Medicine; Visit Provider Internal Medicine
DX: I48.19 Other persistent atrial fibrillation (principal); I50.812 Chronic right heart failure; Z98.890 Other specified postprocedural states; I10 Essential (primary) hypertension; G47.33 Obstructive sleep apnea (adult) (pediatric); Z99.89 Dependence on other enabling machines and devices; Z01.810 Encounter for preprocedural cardiovascular examination
CPT/HCPCS: 99214

== ENCOUNTER → 2023-10-31 09:15 | Outpatient (BNVA) | payer MEDICARE, MEDICAID, SELFPAY | PROVIDERS: PCP Internal Medicine; Visit Provider Internal Medicine | DX: Z01.810 Encounter for preprocedural cardiovascular examination (principal); I48.19 Other persistent atrial fibrillation; I11.0 Hypertensive heart disease with heart failure; I50.812 Chronic right heart failure; G47.33 Obstructive sleep apnea (adult) (pediatric); Z99.89 Dependence on other enabling machines and devices; Z98.890 Other specified postprocedural states | CPT/HCPCS: 99212 ==

== ENCOUNTER 2023-11-03 13:00 | Outpatient (RCR) | payer MEDICARE, MEDICAID, SELFPAY ==
--- NOTE | 2023-08-26 17:33 | MHC.OT.OEV ---
[address] [phone] F: [phone] Occupational Therapy Evaluation Patient Name: Hector Colon Diagnosis: (L)Carpel Tunnel Release, (R)Carpel Tunnel Syndrome Date of Onset: Date of Surgery: 08/01/23 Attending Provider: Casandra Colin Prescribed Treatment: Follow Up Appointment: History of Current Condition: Patient is a 68 year old right handed male s/p 3.3weeks (08/01/2023) (R)Carpel Tunnel release with past medical history significant for but not limited too A-fib, restrictive lung disease, CHF, HTN, OA and carpel tunnel syndrome in (L)wrist who reports numbness/ tingling, pain, impaired sensation to temperature, difficulty with picking up items and unable to make a fits (B'ly). He was referred by Casandra Colin MD for ROM exercise (B'ly). NERVE CONDUCTION STUDY found: 1. This is an abnormal study. 2. There is electrodiagnostic evidence for bilateral moderate-severe median neuropathy at the wrist, consistent with carpal tunnel syndrome. 3. There is electrodiagnostic evidence for bilateral ulnar neuropathy, most likely at the elbow. 4. There is no electrodiagnostic evidence for brachial plexopathy, or cervical radiculopathy. Significant Medical History: Arthritis Atrial septal defect Atrial fibrillation Gouty tophi of joint Restrictive lung disease Cervical spondylosis Epidermal cyst Essential hypertension Chronic right heart failure Crohn's disease TIFFANY on CPAP Morbid obesity Precautions/Contraindications: (R)hand no more then 5lbs. 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 or uses the computer Current Level of Function and Occupation Self Care, Employment, Leisure: Mod(A)ADLs/IADLs- difficulty with donning pants, opening jars, holding grandson, can not feel hot/cold Retired Sleep: Pain will wake him up at night Driving: Difficulty with turning the steering wheel Vision: Balance: Pain Assessment Pain Score: 8 Pain Scale Used: Numeric (0 - 10) Pain Location and Description: 8/10 pain consistently in (B)hands Aggravating Factors: Alleviating Factors: Skin and Soft Tissue Assessment Skin and Soft Tissue: Comments: Scar on (L)volar wrist- intact no s/s of infection Nerve assessment Ulnar Nerve: B/L Impaired Median Nerve: B/L Impaired Radial Nerve: Comments: Per Never Conduction Sensory Assessment Temperature: B/L Impaired Light Touch: Proprioception: Vibration: WNL Comments: Patient reports he can feel hot/cold temperature but it takes a while for him to feel it resulting in getting burned. Calvert-Alex monofilament test=diminished protective sensation Edema Assessment Upper Extremity: Right Impaired Left Impaired Lower Extremity: Comments: Edema present in fingers (B'ly) Dexterity Assessment Dexterity: B/L Impaired Comments: Functional Dexterity Test= patient unable to perform test Special Tests Comments: AROM(PROM) Strength Cervical Cervical Flexion: Cervical Extension: Cervical Lateral Flexion: Cervical Rotation: Comments: Shoulder Flexion: (R)90* Extension: (R)WFL Abduction: (R)90* Internal Rotation: (R)WFL External Rotation: (R)WFL Comments: (L)shoulder WFL Flexion: Extension: Abduction: Internal Rotation: External Rotation: Comments: 3/5 grossly Elbow Flexion: Extension: Pronation: Supination: Comments: WFL Flexion: Extension: Pronation: Supination: Comments: 3/5 grossly Wrist Flexion: (R)48* (L)35* Extension: (R)57* (L)35* Ulnar Deviation: (R)14* (L)10* Radial Deviation: (R)14* (L)10* Comments: Flexion: Extension: Ulnar Deviation: Radial Deviation: Comments: Not tested Thumb Thumb CMC Flexion: Thumb MCP Flexion: Thumb IP Flexion: Radial Abduction: Palmar Abduction: [place] (Kapandji 0-10): Comments: Digits Index MCP: (R)90 (L)90 PIP: (R)41 (L)11 DIP: (R)10 (L)0 Long MCP: (R)90 (L)90 PIP: (R)41 (L)11 DIP: (R)10 (L)0 Ring MCP: (R)90 (L)90 PIP: (R)30 (L)31 DIP: (R)0 (L)18 Small MCP: (R)90 (L)90 PIP: (R)60 (L)0 DIP: (R)20 (L)0 Comments: Gross Grasp: (R)13.3lbs., (L) 10lbs. Lateral Pinch: Two-Point Pinch: Three-Jaw [place]: Comments: Patient Education Primary Language: Winch Driver Required: No Current Knowledge: Teaching Method: Education Needs Identified on Evaluation: How did patient/family demonstrate learning? Barriers to Learning: Readiness for Learning: Who was educated? Comments: Plan of Care Assessment: Patient is a 68 y/o right handed male who is 3.3weeks s/p (L)Carpel Tunnel Release and (R)CTS who reports significant pain, numbness/tingling in hands, edema, impaired sensation and coordination (B'ly). 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 He has 2 adult children who are supportive. He states his PLOF as (I)ADLs/IADLs. Currently he reports difficulty with donning pants, dropping items, getting burned due to his impaired sensation to temperature, unable to hold his grandson and opening jars. His main objective is to be able to use his hands again. Based on initial evaluation patient presents with impaired ROM of the (R)shoulder (B)wirsts, (B)digits, he was unable to perform the Functional Dexterity Test due to his poor coordination, achieved 15lb.s (R)hand and 10lbs. (L) hand which is under for patient's age and gender, and he has diminished protective sensation per the Calvert-Alex monofilament test. Quick DASH score= 86.4% indicating patient's perception of UE dysfunction during self care tasks. Patient's CLOF is mod(A)IADLs/IADLs as patient presents with impaired strength, pain, edema, impaired coordination, impaired ROM, impaired sensation and impaired performance during self care tasks. Due to the documented impairments it is recommended that patient receive skilled OT services in order for patient to achieve his maximal potential and his goal of being able to use his hands. Thank you for your referral. STG Duration: 2 weeks Short Term Goals: Patient will report 6/10 pain in hand (B) Patient will increase PIP flexion/extension by 10* Patient will increase DIP flexion/extension by 5* patient will be able to complete the Functional dexterity Test indicating improvement in coordination Patient will be (I) in edema management Patient will be (I) in scar management Patient will state at least 2 protective compensatory strategies to maintain skin integrity from extreme temperatures to reduce skin breakdown and infection. LTG Duration: 4 weeks [facility] Goals: Patient will report 0/10 pain in hand (B) Patient will increase PIP flexion/extension by 30* Patient will increase DIP flexion/extension by 20* Patient will improve coordination (B'ly) from severely impaired to moderately impaired Patient will be (I) in HEP Patient will have an improved Quick DASH score of 60% indicating overall improvement of the (B)UEs during functional taask Frequency and Duration: The patient will be seen 2x a week for 4 weeks Treatment Plan: Therapeutic Exercise Therapeutic Activity Home Exercise Program Patient Education Desensitization/Sensory Re-ed Edema Control ADL Training Iontophoresis Paraffin Fluidotherapy MHP Cold Packs Kinesiotaping OT evaluation and treat 2x a week for 4 weeks Electronically Signed By: Kenia Rodriguez OTR/L, CLT Reviewed/agree with student documentation: Therapist: Please sign and return to therapist, Thank you for your referral.
--- NOTE | 2023-09-26 13:10 | MHC.OT.OP ---
[address] [phone] F: [phone] Occupational Therapy Progress Note Patient Name: Hector Colon Diagnosis: (L)Carpel Tunnel Release, (R)Carpel Tunnel Syndrome Date of Surgery: 08/01/23 Date of Evaluation: 08/26/23 Treatments to Date: 7 Cancellations to Date: 1 No Shows to Date: 0 Subjective: I still have numbness and tingling in all my (left) digits, but it doesn't wake me up any more, now the right side does Pain Score: 5 Pain Location: (B)hands, R > L Objective Measures: Patient reports he can feel hot/cold temperature but it takes a while for him to feel it resulting in getting burned. [place] monofilament test=diminished protective sensation Digit AROM limited ~5 cm tip-palm Status: Progressing Assessment: Pt reports improvements w/ sensation (numbness/tingling) in left hand, no longer waking at night, but still very limited functionally due to B/L hand stiffness. He is motivated w/ good follow through w/ HEP. Short Term Goals: Patient will report 6/10 pain in hand (B) Patient will increase PIP flexion/extension by 10* Patient will increase DIP flexion/extension by 5* patient will be able to complete the Functional dexterity Test indicating improvement in coordination Patient will be (I) in edema management Patient will be (I) in scar management Patient will state at least 2 protective compensatory strategies to maintain skin integrity from extreme temperatures to reduce skin breakdown and infection. Furnace Helper Goals: Patient will report 0/10 pain in hand (B) Patient will increase PIP flexion/extension by 30* Patient will increase DIP flexion/extension by 20* Patient will improve coordination (B'ly) from severely impaired to moderately impaired Patient will be (I) in HEP Patient will have an improved Quick DASH score of 60% indicating overall improvement of the (B)UEs during functional taask Frequency and Duration: The patient will be seen 2x/wk x 2 weeks Treatment Plan: Therapeutic Exercise Therapeutic Activity Home Exercise Program Patient Education Edema Control ADL Training Paraffin Fluidotherapy MHP Cold Packs Joint Mobilization Soft Tissue Mobilization Kinesiotaping OT evaluation and treat 2x a week for 4 weeks Electronically Signed By: Madina Elena, OTR/L CHT Reviewed/agree with student documentation: N/A Therapist:
--- NOTE | 2023-11-04 10:29 | MHC.OT.DC ---
[address] [phone] F: [phone] Occupational Therapy Discharge Note Patient Name: Hector Colon Provider: Dr Casandra Colin Diagnosis: (L)Carpel Tunnel Release, (R)Carpel Tunnel Syndrome Date of Surgery: 08/01/23 Date of Evaluation: 08/26/23 Date of Discharge: 11/03/23 Treatments to Date: 14 Cancellations to Date: 1 No Shows to Date: 0 Discharge Status: Achieved Goals Improved Function Independent with HEP Discharge Summary: Hector was referred to OT w/ B/L hand pain and stiffness due to CTS and OA. He has done well through course of hand therapy; still w/ stiffness, edema and digit pain, but improving digit range w/ ease at end range. Reporting overall improvements with daily activities. Good follow through w/ Oval 8 nighttime wear and no recent triggering. 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 He has good understanding of home program and is awaiting left CTR next month. Electronically Signed By: Madina Elena OTR/L CHT Reviewed/agree with student documentation: N/A Therapist: Please Sign and return to therapist, thank you for your referral.
== END 2023-11-04 10:30 | disposition home or self-care (01) ==
LOC: HO.OT 13:00
PROVIDERS: PCP Internal Medicine; Visit Provider Orthopaedic Surgery
DX: M1A.9XX1 Chronic gout, unspecified, with tophus (tophi) (principal); G56.02 Carpal tunnel syndrome, left upper limb; G56.22 Lesion of ulnar nerve, left upper limb
CPT/HCPCS: 29125; 97035; 97110; 97140; 97166; 97530; 97760

== ENCOUNTER 2023-12-12 09:48 | Day surgery (SDC) | payer MEDICARE, MEDICAID, SELFPAY ==
[2023-12-12 10:05] VITALS: BP 140/47; PULSE 58; RESP 18; TEMP 36.9; O2SAT 97; BMI 43.9
--- NOTE | 2023-12-12 11:17 | MHC.SHP ---
Pre-Procedural Eval Section A - 24 Hr Update-Section A only Date of Service: 12/12/23 The patient is an INPATIENT: No The patient has been examined within 24 hours of the surgical procedure. The History & Physical has been completed within 30 days and I have reviewed it.: Yes Section B - Complete if H&P > 30 days Chief Complaint: Carpal tunnel syndrome, right upper limb Allergies: Allergies Allergy/AdvReac Type Severity Reaction Status Date / Time tramadol Allergy Mild Dizziness Verified 10/25/23 11:53 Exam Exam Comment: Right carpal tunnel syndrome Plan Diagnosis/Plan: Unchanged I have reviewed the history and physical and performed a pertinent physical examination on my patient. No changes have occurred unless specified. Time Spent With Patient Time: Total time managing care of this patient today ____ minutes.
--- NOTE | 2023-12-12 11:18 | W.PM.OPN ---
Operative Note Operative Note Date of Service: 12/12/23 Narrative: Preop diagnosis: 1. Right Carpal tunnel syndrome Postop diagnosis: same Procedure: 1. Right Carpal tunnel release Surgeon: Casandra Colin MD [employer] Cutter: None Anesthesia: local block using 1% lidocaine with epinephrine Findings: Thickened transverse carpal ligament. EBL: Less than 5 mL Specimens: None Complications: None Disposition: Brought to recovery room in stable condition Plan: Follow-up for 10-14 days for wound check and suture removal He does have arthritis with significant stiffness in his fingers. Please encourage early range of motion, and to continue working with OT. Indications: The patient is a 68 years old, with right carpal tunnel syndrome that has been unresponsive to nonoperative management. The risks and benefits of operative treatment including but not limited to risk of damage to blood vessels, nerves, tendons, infection, persistent pain, persistent symptoms, or possible need for additional surgery were discussed with the patient and the patient wishes to proceed with surgery. Procedure: Once consent was obtained a local block was performed using a combination of 1% lidocaine with epinephrine. The patient was then brought back to the operating suite and placed on the operative table in supine position. The right upper extremity was prepped and draped in a standard surgical fashion. Once assured that we had a good block, a 2.0 cm longitudinal incision was made centered over the carpal tunnel. The incision was made through the skin to the subcutaneous tissues using a #15 blade. Dissection was made down to the level of the transverse carpal ligament with care being taken to protect the palmar cutaneous nerve. Once the transverse carpal ligament was clearly visualized, a longitudinal incision was made in the transverse carpal ligament 1st using a #15 blade, then using tenotomy scissors under direct visualization. Care was taken to look for and protect the motor branch of the median nerve when seen in this area. Once satisfied with our carpal tunnel release the wound was copiously irrigated with normal saline and hemostasis was obtained with a brief period of local pressure. The skin edges were reapproximated with some 5.0 nylon suture material and a sterile dressing was applied. The patient appears to have tolerated the procedure well and with no complications. All digits were well vascularized at the conclusion of the case.
[2023-12-12 12:13] VITALS: BP 142/55; PULSE 58; RESP 16; O2SAT 96
== END 2023-12-12 12:16 | disposition home or self-care (01) ==
PROVIDERS: PCP Internal Medicine; Visit Provider Orthopaedic Surgery
PROC: (CPT 64721; principal; 2023-12-12 12:30)
DX: G56.01 Carpal tunnel syndrome, right upper limb (principal); R20.0 Anesthesia of skin; M06.9 Rheumatoid arthritis, unspecified; M1A.9XX1 Chronic gout, unspecified, with tophus (tophi); K50.90 Crohn's disease, unspecified, without complications; I48.19 Other persistent atrial fibrillation; I50.89 Other heart failure; I47.29 Other ventricular tachycardia; I10 Essential (primary) hypertension; J98.4 Other disorders of lung; E66.01 Morbid (severe) obesity due to excess calories; Z68.41 Body mass index [BMI] 40.0-44.9, adult; G47.33 Obstructive sleep apnea (adult) (pediatric); Z79.899 Other long term (current) drug therapy; Z79.620 Long term (current) use of immunosuppressive biologic; Z79.631 Long term (current) use of antimetabolite agent; Z99.89 Dependence on other enabling machines and devices; Z98.890 Other specified postprocedural states; Z87.891 Personal history of nicotine dependence
CPT/HCPCS: 64721; J0171

== ENCOUNTER → 2023-12-12 09:48 | Outpatient (BNV) | payer MEDICARE, MEDICAID, SELFPAY | PROVIDERS: PCP Internal Medicine; Visit Provider Orthopaedic Surgery | DX: G56.01 Carpal tunnel syndrome, right upper limb (principal) | CPT/HCPCS: 64721 ==

== ENCOUNTER 2023-12-19 10:17 | Outpatient (AMB) | payer MEDICARE, MEDICAID, SELFPAY ==
--- NOTE | 2023-12-19 10:30 | A.OFFVIS_ITS ---
Vital Signs 12/19/23 10:31 Height 5 ft 11 in Weight 315 lb 4.176 oz BMI 44.0 BP 120/68 Blood Pressure Location Lt brachial Position Sitting Pulse 52 Pulse Source Pulse Oximeter Pulse Oximetry (%) 98 Oxygen Delivery Method Room Air Intake Visit Reasons: Obstructive sleep apnea Intake Note: pt is here for follow up of TIFFANY,and states going okay with usage. avg is good. Sheep Clipper Required: No Allergies tramadol Allergy (Mild, Verified 12/19/23 11:00) Dizziness Medication List - Last Reconciled 12/19/23 by Cipriano Pearson MD acetaminophen ER (Tylenol Arthritis Pain) 1,300 mg PO Q8H allopurinol 300 mg PO DAILY amlodipine 10 mg PO QAM apixaban (Eliquis) 5 mg PO BID ferrous sulfate 324 mg PO DAILY folic acid 1 mg PO DAILY furosemide 80 mg PO QAM insulin syringe-needle U-100 (BD Insulin Syringe) As directed losartan 100 mg PO QAM methotrexate sodium 15 mg (0.6 mL) subcut QWEEK multivitamin 1 tab PO DAILY oxycodone-acetaminophen 5-325 mg 1 tab PO Q6H PRN pantoprazole 40 mg PO QAM atqcwbbu-rivr-fszpd-oreg-capry 100 mg-150 mg- 50 mg-150 mg 1 cap PO DAILY vedolizumab (Entyvio) 300 mg IV Q8W Do you need a note to return to daycare/school/sports/work: No HPI HPI Obstructive sleep apnea: Details: MR. ZAMORA 68 YEARS OLD GENTLEMAN IS A CASE OF SEVERE OBSTRUCTIVE SLEEP APNEA, HE IS HERE FOR 6 MONTHS FOLLOW-UP. HE USES HIS BIPAP EVERY NIGHT REGULARLY AND FOR AT LEAST. 8-9 HOURS PER NIGHT HE CLAIMS THAT HE SLEEPS GOOD. WHEN HE CHANGES HIS POSITIONS SOMETIME HIS MASK DOES SLEEP AFTER THE SIDE. HE IS AWARE OF THE FACT THAT THERE IS SOME AIR LEAK DURING THE NIGHT, BUT CAN NOT STOP IT COMPLETELY. ANYWAY WHEN HE WAKES UP HE IS VERY REFRESHED AND ENERGETIC. HE DOES NOT FEELS SLEEPY DURING THE DAYTIME. HE CAN NOT LOSE WEIGHT BECAUSE HE IS VERY SEDENTARY MOSTLY SITTING IN THE COUCH AND WATCHING TV. [facility] Medical History COVID-19 Claustrophobia Arthritis Atrial septal defect Atrial fibrillation Gouty tophi of joint Restrictive lung disease Cervical spondylosis Epidermal cyst Essential hypertension Chronic right heart failure Crohn's disease TIFFANY on CPAP Morbid obesity Surgical History History of colon resection History of excision of epidermal inclusion cyst (~03/27/21) History of esophagogastroduodenoscopy (EGD) Status post surgical atrial septal defect closure History of colonoscopy Family History Father Hx of Crohn's disease Cancer Mother Hx of type 2 diabetes mellitus Social History Are you a primary healthcare account manager to a significant other at home: No Do you presently have visiting nurse or other home services: No Alcohol intake: never Comment: counts correct Patient Tobacco Use Status: Former Tobacco user Tobacco use type: Cigarette Years Smoked: 10 +/- Current occupational status: retired Current occupation: right hand dominant Review of Systems Const All systems reviewed & are unremarkable except as noted in HPI and below Eyes Reports no additional complaints ENT Reports no additional complaints Card Denies chest pain, Denies irregular heart rhythm and Denies leg edema Resp Reports as per HPI GI Reports GI cramping and Reports heartburn Reports no additional complaints Musc Reports arthralgias (especially in wrist joints) Neuro Reports no additional complaints Psych Reports no additional complaints Physical Exam Vital Signs: Last Vital Signs Pulse 52 12/19/23 10:31 BP 120/68 12/19/23 10:31 Pulse Ox 98 12/19/23 10:31 Oxygen Delivery Method Room Air 12/19/23 10:31 BMI result Body Mass Index 44.0 Const General: comfortable, no acute distress, alert and awake Orientation/consciousness: patient oriented x3 HEENT Head: Yes normal to inspection General nose exam: No nasal polyps present and No nasal discharge present Face and sinus: Yes sinuses nontender Mouth: oropharynx normal Throat: Yes posterior oropharynx normal Eyes General: appearance normal, both eyes and all related structures Neck Neck: Yes normal visual inspection, Yes no lymphadenopathy, Yes trachea midline and Yes no JVD Thyroid: Thyroid normal Chest Chest palpation & inspection: normal inspection of the chest, normal palpation of entire chest wall and no tenderness Resp Effort & Inspection: normal respiratory effort Auscultation: clear to auscultation bilaterally, no crackles and no wheezes Cardio Palpation: normal PMI Rate: regular rate Rhythm: regular rhythm Heart sounds: no gallops and no murmurs Peripheral pulses: Peripheral pulses 2+ throughout GI Palpation (GI): Soft to palpation, nontender, No hepatosplenomegaly present, no masses and Other GI palpation findings present (Midline scar Abdomen is Obese and protuberant, Lt. sided ventral hernia , ) Auscultation: normal bowel sounds Back/Spine/Pelvis Thoracic/Lumbar Spine: thoracic and lumbar spine normal to inspection Skin General skin exam: no rashes or lesions noted Neuro General: patient oriented x3 and no focal motor deficits Cranial nerves: Yes CN's II-XII intact bilaterally Extrem General: Yes normal to inspection, Yes no clubbing, cyanosis or edema and Yes no calf tenderness Psych Appearance: grossly normal and well kempt Speech and movement: Normal speech and movement present Results Reviewed Results Reviewed: COMPLIANCE REPORT FOR THE LAST 30 NIGHTS IS REVIEWED. HE HAS USED 30/30 NIGHTS, 100%. AVERAGE USE IT PER NIGHT 8 HOURS 58 MINUTE. HE IS ON BILEVEL PRESSURE OF 24/20 CM. THERE IS MODERATE AMOUNT OF AIR LEAK. RESIDUAL AHI IS STILL 9.5 Assessment & Plan Assessment & Plan (1) Morbid obesity: Comment: IT IS A CHRONIC PROBLEM, HE IS WELL AWARE OF THIS ISSUE. Code(s): E66.01 - Morbid (severe) obesity due to excess calories Category: Medical Plan: TALKED ABOUT DIET. AND ALSO ABOUT EXERCISE LIKE WALKING ABOUT 2 MILES EVERY DAY. HE HAS LIMITED CAPACITY TO WALK AND DOING EXERCISE DUE TO HIS CHRONIC ARTHROPATHY. DOES NOT WANT TO BE IN ANY WEIGHT MANAGEMENT PROGRAM. REALISTICALLY THERE IS NO POTENTIAL FOR HIM TO LOSE WEIGHT. (2) TIFFANY on CPAP: Comment: KNOWN CASE OF SEVERE OBSTRUCTIVE SLEEP APNEA. HE REQUIRES USE OF BIPAP WITH PRESSURE SETTING 24/20 CM. HE IS VERY COMPLIANT AND BENEFITS FROM THE USE OF CPAP. THERE IS MODERATE DEGREE OF AIR LEAK. Code(s): G47.33 - Obstructive sleep apnea (adult) (pediatric); Z99.89 - Dependence on other enabling machines and devices Category: Medical Plan: .COMMENDED FOR GOOD COMPLIANCE TALKED ABOUT THE AIR LEAK AND TRY TO TIGHTEN THE STRAPS MUCH POSSIBLE. (3) Restrictive lung disease: Comment: PER SPIROMETRY FINDING THERE IS EVIDENCE OF MILD TO MODERATE DEGREE OF RESTRICTIVE PULMONARY DISORDER, THIS IS EXPECTED BECAUSE OF HIS MORBID OBESITY. Code(s): J98.4 - Other disorders of lung Category: Medical Plan: HE DOES NEED TO LOSE. WEIGHT BUT IS DIFFICULT FOR HIM ADVISED TO KEEP ON DOING DEEP BREATHING EXERCISES 2 OR. 3 TIMES A DAY Coding Level of Care Code Est Pt Level 3 (69622) Diagnoses Morbid obesity E66.01 TIFFANY on CPAP G47.33; Z99.89 Restrictive lung disease J98.4
[2023-12-19 10:31] VITALS: BP 120/68; PULSE 52; O2SAT 98; BMI 44.0
== END 2023-12-19 11:01 | disposition home or self-care (01) ==
PROVIDERS: PCP Internal Medicine; Visit Provider Internal Medicine
DX: E66.01 Morbid (severe) obesity due to excess calories (principal); G47.33 Obstructive sleep apnea (adult) (pediatric); Z99.89 Dependence on other enabling machines and devices; J98.4 Other disorders of lung
CPT/HCPCS: 99213

== ENCOUNTER → 2023-12-19 10:17 | Outpatient (BNVA) | payer MEDICARE, MEDICAID, SELFPAY | PROVIDERS: PCP Internal Medicine; Visit Provider Internal Medicine | DX: G47.33 Obstructive sleep apnea (adult) (pediatric) (principal); J98.4 Other disorders of lung; E66.01 Morbid (severe) obesity due to excess calories; Z99.89 Dependence on other enabling machines and devices | CPT/HCPCS: 99212 ==

== ENCOUNTER 2023-12-27 09:34 | Outpatient (AMB) | payer MEDICARE, MEDICAID, SELFPAY ==
--- NOTE | 2023-12-27 10:02 | MHC.OFFVIS ---
Vital Signs 12/27/23 10:05 Height 5 ft 11 in Weight 315 lb 4 oz BMI 44.0 Intake Visit Reasons: PO RT CTR 12/12/23 AR Intake Note: Hector is a 68 yo right hand dominant male who presents today with his post-operatively s/p right CTR done 12/12/[address] Colin. Patient reports numbness and tingling. Denies locking on fingers. Reports taking Aleve for pain with minimal relief. Patient states he also has arthritis so it is hard for him to know if the pain is coming from that or the surgery. Stitches removed in office and steri strips applied. Allergies tramadol Allergy (Mild, Verified 12/27/23 10:05) Dizziness HPI HPI PO RT CTR 12/12/23 AR: Details: Hector is a 68 year old right hand dominant man who returns S/P right carpal tunnel release, DOS: 12/12/23 He is S/P left carpal tunnel release, cubital tunnel release with anterior transposition, and forearm excision of gouty tophi, DOS: 08/01/23. He says he is doing okay and his sensation is still numb, but with good improvement of his nighttime symptoms. . He continues to have difficulty with hand stiffness, and has been struggling to work on ROM exercises at home, with the help of his . He has not been attending OT hand therapy for the last 6 weeks. He says he continues to have numbness & tingling in his left hand, but with good improvement in his nighttime symptoms. After this 2nd carpal tunnel release, he is happy that he can now sleep at night. He has RA & Crohn's disease and is on both Methotrexate & Entyvio for these conditions. Please see my previous note from 03/15/23 & 07/27/23 for more information [facility] Medical History COVID-19 Claustrophobia Arthritis Atrial septal defect Atrial fibrillation Gouty tophi of joint Restrictive lung disease Cervical spondylosis Epidermal cyst Essential hypertension Chronic right heart failure Crohn's disease TIFFANY on CPAP Morbid obesity Surgical History History of colon resection History of excision of epidermal inclusion cyst (~03/27/21) History of esophagogastroduodenoscopy (EGD) Status post surgical atrial septal defect closure History of colonoscopy Family History Father Hx of Crohn's disease Cancer Mother Hx of type 2 diabetes mellitus Social History Are you a primary client care specialist to a significant other at home: No Do you presently have visiting nurse or other home services: No Alcohol intake: never Comment: counts correct Patient Tobacco Use Status: Former Tobacco user Tobacco use type: Cigarette Years Smoked: 10 +/- Current occupational status: retired Current occupation: right hand dominant Review of Systems Const All systems reviewed & are unremarkable except as noted in HPI and below Physical Exam Vital Signs: BMI result Body Mass Index 44.0 Const General: no acute distress and alert Orientation/consciousness: patient oriented x3 Neuro General: patient oriented x3 Extrem Other: The patient was alert oriented and in no acute distress The incision is healing well with no erythema drainage or evidence of infection. Sutures removed and Steri-Strips applied He can fully extend all his digits and place his hand flat on the table Good flexion at the MCP joints, with significant stiffness in his PIP & DIP joints We worked on ROM exercises in clinic, before leaving he could bring his fingertips to ~1-2cm form his palm Dense numbness in the median nerve distribution of the right hand. Normal sensation in the ulnar nerve distribution of the right hand Cap refill brisk Nerve Conduction Study: IMPRESSION: 1. This is an abnormal study. 2. There is electrodiagnostic evidence for bilateral moderate-severe median neuropathy at the wrist, consistent with carpal tunnel syndrome. 3. There is electrodiagnostic evidence for bilateral ulnar neuropathy, most likely at the elbow. 4. There is no electrodiagnostic evidence for brachial plexopathy, or cervical radiculopathy. Thank you for your kind referral. Dede Mullins MD, SUSANNE 02/17/23 Psych Appearance: grossly normal Affect: normal affect Attitude: cooperative Assessment & Plan Assessment & Plan (1) Carpal tunnel syndrome of right wrist: Code(s): G56.01 - Carpal tunnel syndrome, right upper limb Category: Medical (2) Carpal tunnel syndrome on left: Code(s): G56.02 - Carpal tunnel syndrome, left upper limb Category: Medical (3) Cubital tunnel syndrome on left: Code(s): G56.22 - Lesion of ulnar nerve, left upper limb Category: Medical (4) Persistent atrial fibrillation: Code(s): I48.19 - Other persistent atrial fibrillation Category: Medical (5) Stiffness of joints of both hands: Code(s): M25.641 - Stiffness of right hand, not elsewhere classified; M25.642 - Stiffness of left hand, not elsewhere classified Category: Medical (6) Gouty tophi of joint: Code(s): M1A.9XX1 - Chronic gout, unspecified, with tophus (tophi) Category: Medical (7) NSVT (nonsustained ventricular tachycardia): Code(s): I47.29 - Other ventricular tachycardia Category: Medical (8) Cubital tunnel syndrome on right: Code(s): G56.21 - Lesion of ulnar nerve, right upper limb Category: Medical Plan Assessment & Plan: 1. Right Carpal tunnel syndrome, S/P release DOS: 12/12/23 Pre-operatively with dense numbness Now with dense numbness but good improvement in his nighttime symptoms The patient appears to be doing well post-operatively I educated him about the post-operative course I explained the signs and symptoms of infection I discussed activity modifications, he is to lift nothing heavier than a cellphone for the next two weeks He will perform gentle ROM exercises at home He should avoid any underwater activities for the next 5 days He should gently massage about the incision site to reduce the risk of hypersensitivity 2. Bilateral hand stiffness Significant stiffness in multiple PIP & DIP joints He has difficulties making a fist or grasping objects He has improved his function slightly with OT hand therapy but continues to be limited. I ordered a new course of OT hand therapy to work on stretching, strengthening, and normalizing hand function He will continue to work on at-home exercises 3. Right Cubital tunnel syndrome Normal sensation today in clinic We will monitor this and manage conservatively If he develops any worsening symptoms he will follow up to discuss treatment options. 4. Left Carpal tunnel syndrome, S/P release DOS: 08/01/23 Pre-operatively with dense numbness Now with dense numbness but good improvement in his nighttime symptoms 5. Left Cubital tunnel syndrome, S/P release DOS: 08/01/23 Pre-operatively with dense numbness Now with dense numbness but good improvement in his nighttime symptoms 6. Gouty Tophi over the extensor surfaces of bilateral forearms, S/P excision of left-sided forearm gouty tophi DOS: 08/01/23 7. Right ring finger trigger finger No complaints today Scribed for Casandra Colin MD by Jaycob Gruber, medical insurance claims processor, on 12/27/23 at 10:20 AM, EST. Orders: Orders OT Evaluation and Treatment Today M25.641 - Stiffness of right hand, not elsewhere classified, M25.642 - Stiffness of left hand, not elsewhere classified Scribe Plan - Not visible on output: Scribed for Casandra Colin MD by Jaycob Gruber medical insurance claims processor, on [ ] at [ ], EST. Coding Level of Care Code Global (92225) Diagnoses Carpal tunnel syndrome of right wrist G56.01 Carpal tunnel syndrome on left G56.02 Cubital tunnel syndrome on left G56.22 Persistent atrial fibrillation I48.19 Stiffness of joints of both hands M25.641; M25.642 Gouty tophi of joint M1A.9XX1 NSVT (nonsustained ventricular tachycardia) I47.29 Cubital tunnel syndrome on right G56.21
[2023-12-27 10:05] VITALS: BMI 44.0
== END 2023-12-27 10:28 | disposition home or self-care (01) ==
PROVIDERS: PCP Internal Medicine; Visit Provider Orthopaedic Surgery
DX: G56.03 Carpal tunnel syndrome, bilateral upper limbs (principal); G56.22 Lesion of ulnar nerve, left upper limb; I48.19 Other persistent atrial fibrillation; M25.641 Stiffness of right hand, not elsewhere classified; M25.642 Stiffness of left hand, not elsewhere classified; M1A.9XX1 Chronic gout, unspecified, with tophus (tophi); I47.29 Other ventricular tachycardia; G56.21 Lesion of ulnar nerve, right upper limb
CPT/HCPCS: 99024

== ENCOUNTER → 2023-12-27 09:34 | Outpatient (BNVA) | payer MEDICARE, MEDICAID, SELFPAY | PROVIDERS: PCP Internal Medicine; Visit Provider Orthopaedic Surgery | DX: Z48.02 Encounter for removal of sutures (principal); G56.03 Carpal tunnel syndrome, bilateral upper limbs; G56.23 Lesion of ulnar nerve, bilateral upper limbs; M25.461 Effusion, right knee; M25.462 Effusion, left knee; M1A.9XX1 Chronic gout, unspecified, with tophus (tophi); I48.19 Other persistent atrial fibrillation; I47.29 Other ventricular tachycardia | CPT/HCPCS: 99212 ==

== ENCOUNTER 2023-12-30 10:50 | Outpatient (REF) | payer MEDICARE, MEDICAID, SELFPAY ==
--- NOTE | 2023-12-30 12:21 | MHC.AU.HA3 ---
Hearing Instrument Follow-Up- Binaural Date of Visit: 12/30/23 Right Ear: Mannie Model, Color, Serial Number: [id number] [employer] Repair Warranty: 11/16/2024 [employer] Loss and Damage Warranty: 11/16/2024 [facility] Service Plan: 09/04/22 Battery Size: Rechargeable Metallographic Technician/Slim Tube: 1M Earmold/Dome/CShell/SlimTip: Type of Wax Guard: CeruStop Dispensed By: [facility] Date of Fittin09/04/2021 Left Ear: Mannie, Model, Color, Serial Number: [id number] [employer] Warranty: 11/16/2024 [employer] Loss and Damage Warranty: 11/16/2024 [facility] Service Plan: 09/04/22 Battery Size: Rechargeable Metallographic Technician/Slim Tube: 1M Earmold/Dome/CShell/SlimTip: Type of Wax Guard: CeruStop Dispensed By: [facility] Date of Fittin09/04/2021 Follow-Up Summary: Hector is here with his . Reports hearing aids have been cutting out. Notes trouble hearing in restaurants. Reports he only wears the hearing aids when he is going out. Might not wear them for 5-6 days at a time. Reports trouble changing domes and wax guards. Reports trouble with VC due to lack of feeling in fingers. Cleaned and checked aids. Found left manager hospice not working. Swapped to 5.0 receivers as CeruStop will be easier to handle. Mics significantly clogged. Listening check positive after cleaning. Firmware updated. Deactivated speech rescue. Increased automatic noise management settings. Improvement reported. Counseled on importance of consistent daily wear. Reviewed dome and wax guard change. Reviewed VC use. Pt does not have a smartphone. Discussed cost of remote, not interested at this time. Recommendations: Recommendations: Hearing instrument maintenance in 6 months, or sooner if needed. Diagnosis Code(s): Primary Diagnosis: H90.3 Bilateral Sensorineural Hearing Loss Signature: Provider: Matthias Oleary, CCC-A
== END 2023-12-30 10:51 | disposition home or self-care (01) ==
LOC: HO.HAP 10:50
PROVIDERS: Visit Provider Internal Medicine
DX: Z46.1 Encounter for fitting and adjustment of hearing aid (principal); H90.3 Sensorineural hearing loss, bilateral
CPT/HCPCS: 92593; 99499

== ENCOUNTER 2023-12-30 11:36 | Outpatient (REF) | payer SELFPAY | END 2023-12-30 11:37 | disposition home or self-care (01) | LOC: HO.HAP 11:36 | PROVIDERS: Visit Provider Internal Medicine | DX: Z46.1 Encounter for fitting and adjustment of hearing aid (principal) | CPT/HCPCS: V5267 ==

== ENCOUNTER 2024-01-04 08:54 | Outpatient (REF) | payer MEDICARE, MEDICAID, SELFPAY ==
[2024-01-04 10:09] LABS: MANUAL DIFF FLAG NO
[2024-01-04 10:17] LABS: Basophils Percent Auto 0.4 % (0-2); Eosinophils Absolute Auto 0.1 X10*3/uL (0.0-0.4); Eosinophils Percent Auto 1.4 % (0-4); Hematocrit 32.5 % (42.0-52.0); Hemoglobin 10.6 g/dl (14.0-18.0); Imm Gran Abs Auto 0.01 X10*3/uL (0.00-0.03); Imm Gran Pct Auto 0.2 % (0.0-0.4); Lymphocytes Percent Auto 19.7 % (20-40); Mean Corpuscular HGB Conc 32.6 g/dl (31.0-36.0); Mean Corpuscular Hemoglobin 29.9 pg (27.0-33.0); Mean Corpuscular Volume 91.5 fL (80.0-98.0); Monocytes Absolute Auto 0.4 X10*3/uL (0.1-1.2); Monocytes Percent Auto 7.1 % (2-11); Neutrophils Absolute Auto 3.5 x10*3/uL (2.0-8.3); Neutrophils Percent Auto 71.2 % (45-73); Platelet Count 193 X10*3/uL (160-400); Red Blood Count 3.55 X10*6/uL (4.60-5.80); Red Cell Distribution Width 17.4 % (11.0-16.0); White Blood Count 4.9 X10*3/uL (4.8-10.8)
[2024-01-04 11:08] LABS: Erythrocyte Sedimentation Rate 29 MM/HR (0-15)
[2024-01-04 11:46] LABS: Alanine Aminotransferase 8 U/L (0-40); Albumin Level 4.3 g/dL (3.5-5.0); Alkaline Phosphatase 79 U/L (39-117); Anion Gap 14 (12-20); Aspartate Amino Transferase 18 U/L (5-37); Bilirubin Total 0.9 mg/dL (0.0-1.0); Blood Urea Nitrogen 39 mg/dL (9-16); Calcium 9.8 mg/dL (8.4-10.2); Carbon Dioxide 25 mmol/L (22-29); Chloride 108 mmol/L (96-108); Estimated Glomerular Filt Rate 51; Glucose Random 148 mg/dL (60-115); Potassium 3.9 mmol/L (3.3-5.1); Sodium 143 mmol/L (135-145); Total Protein 7.3 g/dL (6.5-8.0); Uric Acid 7.2 mg/dL (3.4-7.0)
== END 2024-01-04 08:55 | disposition home or self-care (01) ==
LOC: HO.WFDLDS 08:54
PROVIDERS: Visit Provider Student in an Organized Health Care Education/Training Program
DX: K63.9 Disease of intestine, unspecified (principal); M07.60 Enteropathic arthropathies, unspecified site; M1A.9XX1 Chronic gout, unspecified, with tophus (tophi); Z79.631 Long term (current) use of antimetabolite agent
CPT/HCPCS: 36415; 80053; 84550; 85025; 85652; 86140

== ENCOUNTER 2024-01-25 11:36 | Outpatient (AMB) | payer MEDICARE, MEDICAID, SELFPAY ==
--- NOTE | 2024-01-25 11:47 | A.OFFVIS_ITS ---
Vital Signs 01/25/24 11:54 Height 5 ft 11 in Weight 316 lb 9.341 oz BMI 44.1 BP 142/74 H Blood Pressure Location Lt brachial Position Sitting Pulse 64 Pulse Source Pulse Oximeter Pulse Oximetry (%) 96 Oxygen Delivery Method Room Air Intake Visit Reasons: Gout/IBD arthritis Intake Note: Patient last seen by Doctor Viral Balderrama on 10/25/23. Presents for Gout/IBD arthritis follow up and test results. Patient needs Methotexate refill, and BD syringes refills. Allergies tramadol Allergy (Mild, Verified 01/25/24 11:48) Dizziness Medication List - Last Reconciled 01/25/24 by Viral Balderrama MD acetaminophen ER (Tylenol Arthritis Pain) 1,300 mg PO Q8H allopurinol 300 mg PO DAILY amlodipine 10 mg PO QAM apixaban (Eliquis) 5 mg PO BID ferrous sulfate 324 mg PO DAILY folic acid 1 mg PO DAILY furosemide 80 mg PO QAM insulin syringe-needle U-100 (BD Insulin Syringe) As directed losartan 100 mg PO QAM methotrexate sodium 15 mg (0.6 mL) subcut QWEEK multivitamin 1 tab PO DAILY pantoprazole 40 mg PO QAM [id number]-[id number]-capry 100 mg-150 mg- 50 mg-150 mg 1 cap PO DAILY vedolizumab (Entyvio) 300 mg IV Q8W HPI Comments Details: 68 yoM with a PMH of Crohns disease, IBD related arthritis and gout who presents for follow-up. On subcu methotrexate 20 mg weekly, folic acid 1 mg daily, allopurinol 300 mg daily. He states that he is doing reasonably well overall. Pain and swelling of his feet has improved. The right hand tingling and numbness that would wake him up from sleep in the middle of the night it has resolved since the carpal tunnel release procedure Per Dr. Manuel: Presents for follow-up of initial testing. At last visit, patient received a prednisone taper which he states significantly helped his joint pain. He has now completed the prednisone and some of his joint pain has returned. From last visit: Patient is currently on Entyvio for his Crohns. He was previously treated with Humira however did not respond to therapy in terms of his bowel disease or his joint pain. He reports a few years of joint pain mostly located in his hands, feet, and neck. He has swelling located in his MCPs and PIPs as well as nodules by both elbows. Has stiffness in his hands and is unable to make fists. States that his feet feel like he is walking on glass. He was given a prednisone taper by his PCP which helped immensely with his pain and swelling. He was also given Sulfasalazine by Dr Taylor in GI and took it for a couple of weeks but states that it did not help his joint pain. Unable to take NSAIDs as he is on Eliquis for Afib. No family history of RA, SLE, Crohns, Psoriasis or Psoriatic Arthritis. [facility] Medical History COVID-19 Claustrophobia Arthritis Atrial septal defect Atrial fibrillation Gouty tophi of joint Restrictive lung disease Cervical spondylosis Epidermal cyst Essential hypertension Chronic right heart failure Crohn's disease TIFFANY on CPAP Morbid obesity Surgical History History of colon resection History of excision of epidermal inclusion cyst (~03/27/21) History of esophagogastroduodenoscopy (EGD) Status post surgical atrial septal defect closure History of colonoscopy Family History Father Hx of Crohn's disease Cancer Mother Hx of type 2 diabetes mellitus Social History Are you a primary primary care nurse to a significant other at home: No Do you presently have visiting nurse or other home services: No Alcohol intake: never Comment: counts correct Patient Tobacco Use Status: Former Tobacco user Tobacco use type: Cigarette Years Smoked: 10 +/- Current occupational status: retired Current occupation: right hand dominant Review of Systems Musc Reports stiffness Neuro Reports Sensory deficit (Neuro) Physical Exam Vital Signs: Last Vital Signs Pulse 64 01/25/24 11:54 BP 142/74 H 01/25/24 11:54 Pulse Ox 96 01/25/24 11:54 Oxygen Delivery Method Room Air 01/25/24 11:54 BMI result Body Mass Index 44.1 Const General: cooperative, healthy appearing and comfortable Nutritional Appearance: obese morbidly obese Orientation/consciousness: patient oriented x3 Limitations: no limitations HEENT Head: Yes normocephalic and Yes atraumatic Resp Effort & Inspection: normal respiratory effort and able to speak in complete sentences Cardio Rate: regular rate Skin General skin exam: no rashes or lesions noted Neuro General: patient oriented x3 Sensory Exam: Sensory deficit (Neuro) Extrem Other: Bilateral diffuse MCP puffiness but no tenderness Multiple puffy fingers but no tenderness Negative MCP squeeze test bilaterally Bilateral reduced scrap sawyer strength Negative Tinel sign Large gouty tophi distal to both elbows. Smaller on the left (some was surgically excised) Results Reviewed Results Reviewed: Surgical pathology 07/2023 Diagnosis A. Soft tissue, left forearm mass, excision: Tophaceous gout. B. Soft tissue, left forearm mass #2, excision: Tophaceous gout Assessment & Plan Assessment & Plan (1) Arthritis associated with inflammatory bowel disease: Comment: Failed p.o. methotrexate. Doing well on subcu methotrexate for Crohn's failed Humira, did well on Entyvio Code(s): K63.9 - Disease of intestine, unspecified; M07.60 - Enteropathic arthropathies, unspecified site Category: Medical Plan: This is a 68-year-old male with IBD related arthritis returns for follow-up. Doing well on SQ methotrexate 20 mg weekly plus folic acid 1 mg daily Continue current meds Labs before next visit in 3 months (2) Gouty tophi of joint: Code(s): M1A.9XX1 - Chronic gout, unspecified, with tophus (tophi) Category: Medical Plan: No history of gout flare-ups or kidney stones however has biopsy proven gouty tophi distal to both elbows. Mother had gout. Initial Uric acid level 12.9. Patient now on allopurinol 300 mg daily. Well-tolerated. Uric acid improved to 7.2. Still not at target. Increase allopurinol to 400 mg daily. Check uric acid level before next visit (3) residential methotrexate user: Code(s): Z79.631 - keno terminal operator (current) use of antimetabolite agent Category: Medical Plan: Monitor safety labs. 04/2023 patient had acute renal insufficiency that might have been related to a COVID infection likely methotrexate levels were increased causing some anemia and leukopenia, this resolved when methotrexate was discontinued. Started methotrexate at a lower dose 15 mg weekly. Increased to 20 mg weekly. No cytopenias Plan I spent 25 minutes reviewing patient's chart, evaluating patient, ordering diagnostic workup, counseling patient & his and documenting in the chart Orders: Orders Complete Blood Count Auto Diff 3 Months K63.9 - Disease of intestine, un specified, M07.60 - Enteropathic arthropathies, unspecified site, Z79.631 - residential (current) use of antimetabolite agent Comprehensive Met. Panel 3 Months K63.9 - Disease of intestine, unspecified, M07.60 - Enteropathic arthropathies, unspecified site, Z79.631 - residential (current) use of antimetabolite agent C Reactive Protein 3 Months K63.9 - Disease of intestine, unspecified, M07.60 - Enteropathic arthropathies, unspecified site, Z79.631 - keno terminal operator (current) use of antimetabolite agent Erythrocyte Sedimentation Rate 3 Months K63.9 - Disease of intestine, unspecified, M07.60 - Enteropathic arthropathies, unspecified site, Z79.631 - residential (current) use of antimetabolite agent Uric Acid 3 Months M1A.9XX1 - Chronic gout, unspecified, with tophus (tophi) Medications: New allopurinol Combine with allopurinol 300 mg tablet for a total of 400 mg daily 100 mg PO DAILY 90 tabs 1RF Changed From methotrexate sodium 15 mg (0.6 mL) subcut QWEEK 12 mL 0RF To methotrexate sodium 20 mg (0.8 mL) subcut QWEEK 12 mL 2RF From insulin syringe-needle U-100 (BD Insulin Syringe) As directed To insulin syringe-needle U-100 (BD Insulin Syringe) Use once weekly with methotrexate 10 ea 1RF Coding Level of Care Code Est Pt Level 4 (76548) Diagnoses Arthritis associated with inflammatory bowel disease K63.9; M07.60 Gouty tophi of joint M1A.9XX1 residential methotrexate user Z79.631
[2024-01-25 11:54] VITALS: BP 142/74; PULSE 64; O2SAT 96; BMI 44.1
== END 2024-01-25 12:17 | disposition home or self-care (01) ==
PROVIDERS: PCP Internal Medicine; Visit Provider Student in an Organized Health Care Education/Training Program
DX: K63.9 Disease of intestine, unspecified (principal); M07.60 Enteropathic arthropathies, unspecified site; M1A.9XX1 Chronic gout, unspecified, with tophus (tophi); Z79.631 Long term (current) use of antimetabolite agent
CPT/HCPCS: 99214

== ENCOUNTER → 2024-01-25 11:36 | Outpatient (BNVA) | payer MEDICARE, MEDICAID, SELFPAY | PROVIDERS: PCP Internal Medicine; Visit Provider Student in an Organized Health Care Education/Training Program | DX: M07.60 Enteropathic arthropathies, unspecified site (principal); K63.9 Disease of intestine, unspecified; M1A.9XX1 Chronic gout, unspecified, with tophus (tophi); Z79.631 Long term (current) use of antimetabolite agent | CPT/HCPCS: 99212 ==

== ENCOUNTER 2024-02-09 13:00 | Outpatient (RCR) | payer MEDICARE, MEDICAID, SELFPAY ==
--- NOTE | 2024-01-13 10:54 | MHC.OT.EP ---
[address] [phone] Occupational Therapy Plan of Care Patient Name: Hector Colon Date of Evaluation: 01/13/24 Diagnosis: B/L hand stiffness Pain Location: Denies pain currently General arthritis pain Pain Score: 2 Pain Scale Used: Numeric (0 - 10) Aggravating Factors: Weather changes Alleviating Factors: Not feeling like he needs to use modalities Assessment: 68 yo male w/ hx of B/L CTR right 12/12/23 and left 08/01/23, no presents to OT w/ general stiffness in both hands. He was seen for course of OT this spring and did well post-op CTR and with general stretch and strengthening. He returns today about 5 weeks s/p right CTR and he is doing very well. He has continued his home exercises and has maintained range gains from previous treatment and has increased right gross grasp. He is sleeping through the night, still have constant tingling but is able to complete most daily activities. I anticipate we will be able to make even further gains w/ range and strength and he is very motivated. Frequency and Duration: The patient will be seen 2x/wk for 4 weeks Short Term Goals: Ind w/ HEP Ind w/ scar mobilization Pt to demo right hand 3 cm tip-palm Pt to demo left hand 4 cm tip-palm Snf Goals: Active right hand 1 cm 1-palm Active left hand 2 cm tip-palm Right GG >35lb Left GG >30lb Pt to report ease w/ opening containers, AE PRN Treatment Plan: Therapeutic Exercise Therapeutic Activity Patient Education Edema Control ADL Training Ultrasound Paraffin Fluidotherapy MHP Joint Mobilization Soft Tissue Mobilization Electronically Signed By: Madina Elena OTR/L CHT Please Sign and return to therapist. Thank you once again for your referral.
--- NOTE | 2024-02-09 15:21 | MHC.OT.DC ---
[address] [phone] F: [phone] Occupational Therapy Discharge Note Patient Name: Hector Hernández Isaiah Provider: Dr Casandra Colin Diagnosis: B/L hand stiffness Date of Evaluation: 01/13/24 Date of Discharge: 02/09/24 Treatments to Date: 7 Discharge Status: Achieved Goals Improved Function Independent with HEP Discharge Summary: Andre was referred to OT w/ general hand weakness and stiffness, hx of OA and B/L CTR. He has done well w/ course of OT, his and he have great understanding of the POC , pt's has been using her FSA to purchase items for Andre to use at home. His STG met but difficulty making further gains towards LTG. Still with hand stiffness and overall low environmental monitoring technician strength, but reports improvements in sensation and has no functional limitations with daily activities. He is Ind w/ home program, I anticipate he will continue to show gains at home Electronically Signed By: Madina Elena OTR/L CHT Reviewed/agree with student documentation: Therapist: Please Sign and return to therapist, thank you for your referral.
== END 2024-02-09 15:21 | disposition home or self-care (01) ==
LOC: HO.OT 13:00
PROVIDERS: PCP Internal Medicine; Visit Provider Orthopaedic Surgery
DX: M25.641 Stiffness of right hand, not elsewhere classified (principal); M25.642 Stiffness of left hand, not elsewhere classified
CPT/HCPCS: 97110; 97140; 97166; 97530

== ENCOUNTER 2024-03-02 10:15 | Outpatient (REF) | payer MEDICARE, MEDICAID, SELFPAY ==
--- NOTE | 2024-03-02 14:39 | MHC.AU.HA3 ---
Hearing Instrument Follow-Up- Binaural Date of Visit: 03/02/24 Right Ear: Mannie Model, Color, Serial Number: [id number] Margarine Churn Operator Repair Warranty: 11/16/2024 [employer] Ch[employer] Operator Loss and Damage Warranty: 11/16/2024 [employer] Service Plan: 09/04/22 Battery Size: Rechargeable Import And Export Clerk/Slim Tube: 1M Earmold/Dome/CShell/SlimTip: Type of Wax Guard: CeruStop Dispensed By: [employer] Date of Fittin09/04/2021 Left Ear: Mannie, Model, Color, Serial Number: [id number] Margarine Churn Operator Repair Warranty: 11/16/2024 [employer]arine Churn Operator Loss and Damage Warranty: 11/16/2024 [employer] Service Plan: 09/04/22 Battery Size: Rechargeable Import And Export Clerk/Slim Tube: 1M Earmold/Dome/CShell/SlimTip: Type of Wax Guard: CeruStop Dispensed By: [employer] Date of Fittin09/04/2021 Follow-Up Summary: Aids dropped off with note that they tried cleaning but couldn't get them back together. Domes and tails are off. Right wax guard is pushed into grab setter. There is a package of cerushield in the bag with their aids but both receivers are 5 and take cerustop. Cleaned aids. Replaced dome tail and wax guard left. Replaced grab setter right. Listening check positive. Took out the cerushield package and gave them a pack of cerustop. Recommendations: Recommendations: Hearing instrument follow-up or maintenance as needed. Diagnosis Code(s): Primary Diagnosis: H90.3 Bilateral Sensorineural Hearing Loss Signature: Provider: Matthias Oleary, [facility]
== END 2024-03-02 10:16 | disposition home or self-care (01) ==
LOC: HO.HAP 10:15
PROVIDERS: Visit Provider Internal Medicine
DX: Z46.1 Encounter for fitting and adjustment of hearing aid (principal); H90.3 Sensorineural hearing loss, bilateral
CPT/HCPCS: 92593; 99499

== ENCOUNTER 2024-04-10 09:22 | Outpatient (AMB) | payer MEDICARE, MEDICAID, SELFPAY ==
--- NOTE | 2024-04-10 09:23 | A.OFFVIS_ITS ---
Vital Signs 04/10/24 09:24 Height 5 ft 11 in Weight 315 lb 4.176 oz BMI 44.0 BP 144/99 H Blood Pressure Location Lt brachial Position Sitting Pulse 60 Intake Visit Reasons: 6 month f.u Intake Note: Hector presents in the office as a 6 month follow up. CC: He is feeling good and not having any concerns at this time. Juvenile Court Judge Required: No Allergies tramadol Allergy (Mild, Verified 04/10/24 09:27) Dizziness HPI HPI 6 month f.u: Details: 68 yr old m here for f/u for crohns INDEX visit-- he had loose stools for 3 months he noted it was worse when he was started on meloxicam and naprosyn and after he stopped it got better but he still has the loose stools 1-2 times/day he denies blood in stool has a lot of gas and gurgles no nausea or vomtiing appetite is variable weight is gone down 20# but seems to have plateued deneis abdo pain denies fevers or chillss no ABx last few months PCP checked c diff 12/2018 and was neg, stool c/s neg and o/p neg ?he had partial colectomy for diverticulitsi he never had colonoscopy. Colonoscopy/EGD 03/2020--- atrophic gastritis, esophagitis, duodenitis, colon granular with erythema, bx with inactive and active colitis/ileiits, granuloma seen, gastritis, esophagitis commenced on mesalamine, but changed to budesonide due to high fecal nia fecal nia was 1146 c diff neg 12/2018 panc elastase 382 at f/u 07/2019:::::: diarrhea had improved goes to toilet once a day, usu formed, but soft,, not runny He had rising CRP with suspected inflammatory arthropathy despite entyvio, so changed to humira with increased dose eventually to q1week due to break thru sx Humira was increased but he still had sx with rising calprotectin, so changed back to entyvio, he had no antibodies so 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 but HGB was better than before 09/04 with HGB 11.8, mild CRP elevation Repeat labs:11/2021 HGB 11.8 WCC: 5 pls 188 CRP 1.25 fecal nia: 196 LFt normal LABS:12/14/22 HGB 10.5 WCC: 3.4 CRP 2.16 LFt nml Labs: HGB: 9.1 wcc: 4.6 plt: 190 ferritin: 91 iron sat: 36% crp: 1.6 INTERIM: he had carpal tunnel surgery but has not helped too much he has no GI symptoms appetite is good, weight stable--still on MTX No diarrhea, stools are normal-on usual pattern of once daily EXAM: GENERAL: The patient is obese VITAL SIGNS:see workflow HEENT: Nonicteric sclerae, PERRLA, EOMI. Oropharynx clear. Moist mucous membranes. Conjunctivae appear well perfused. No thyroid mass. CHEST: Chest wall is nontender. HEART: Regular rate and rhythm without murmurs. LUNGS: Clear to auscultation bilaterally. ABDOMEN: Soft, positive bowel sounds, nontender, no organomegaly.no flank tenderness, scar noted from prior surgery SKIN: No rash, no excessive bruising, petechiae, or purpura. NEUROLOGIC: Cranial nerves II-XII intact without motor/sensory deficit. no synovitis in hands A/P: 1. Crohn''s disease of both small and large intestine without complication 2. arthropathy, related to crohns, possible degenerative disease as well, on MTX, carpal tunnel syndrome 3/ anemia of chronic disease related to crohns and arthropathy, MTX usage PLAN: 1/ cont with MTX, being monitored by Rheum 2/ cont with entyvio, discussed SQ but bioavailability is 75% so will hold on that 3/ colonoscopy next year [facility] Medical History COVID-19 Claustrophobia Arthritis Atrial septal defect Atrial fibrillation Gouty tophi of joint Restrictive lung disease Cervical spondylosis Epidermal cyst Essential hypertension Chronic right heart failure Crohn's disease TIFFANY on CPAP Morbid obesity Surgical History (Updated 04/10/24 @ 09:28 by GILMA Alvarez) Hx of carpal tunnel repair History of colon resection History of excision of epidermal inclusion cyst (~03/27/21) History of esophagogastroduodenoscopy (EGD) Status post surgical atrial septal defect closure History of colonoscopy Family History Father Hx of Crohn's disease Cancer Mother Hx of type 2 diabetes mellitus Social History Are you a primary hospice care sales consultant to a significant other at home: No Do you presently have visiting nurse or other home services: No Alcohol intake: never Comment: counts correct Patient Tobacco Use Status: Former Tobacco user Tobacco use type: Cigarette Years Smoked: 10 +/- Current occupational status: retired Current occupation: right hand dominant Physical Exam Vital Signs: Last Vital Signs Pulse 60 04/10/24 09:24 BP 144/99 H 04/10/24 09:24 BMI result Body Mass Index 44.0 Assessment & Plan Assessment & Plan (1) Arthritis associated with inflammatory bowel disease: Comment: Failed p.o. methotrexate. Doing well on subcu methotrexate for Crohn's failed Humira, did well on Entyvio Code(s): K63.9 - Disease of intestine, unspecified; M07.60 - Enteropathic arthropathies, unspecified site Category: Medical Plan: see above (2) Crohn's colitis: Code(s): K50.10 - Crohn's disease of large intestine without complications Category: Medical Plan: see above Coding Level of Care Code Est Pt Level 3 (68940) Diagnoses Arthritis associated with inflammatory bowel disease K63.9; M07.60 Crohn's colitis K50.10
[2024-04-10 09:24] VITALS: BP 144/99; PULSE 60; BMI 44.0
== END 2024-04-10 10:13 | disposition home or self-care (01) ==
PROVIDERS: PCP Internal Medicine; Visit Provider Internal Medicine Gastroenterology
DX: K63.9 Disease of intestine, unspecified (principal); M07.60 Enteropathic arthropathies, unspecified site; K50.10 Crohn's disease of large intestine without complications
CPT/HCPCS: 99213

== ENCOUNTER → 2024-04-10 09:22 | Outpatient (BNVA) | payer MEDICARE, MEDICAID, SELFPAY | PROVIDERS: PCP Internal Medicine; Visit Provider Internal Medicine Gastroenterology ==

== ENCOUNTER 2024-04-10 09:53 | Outpatient (REF) | payer MEDICARE, MEDICAID, SELFPAY ==
[2024-04-10 10:09] LABS: MANUAL DIFF FLAG NO
[2024-04-10 10:50] LABS: Basophils Percent Auto 0.9 % (0-2); Eosinophils Absolute Auto 0.1 X10*3/uL (0.0-0.4); Eosinophils Percent Auto 1.5 % (0-4); Hematocrit 32.1 % (42.0-52.0); Hemoglobin 10.6 g/dl (14.0-18.0); Imm Gran Abs Auto 0.08 X10*3/uL (0.00-0.03); Imm Gran Pct Auto 1.7 % (0.0-0.4); Lymphocytes Absolute Auto 1.1 X10*3/uL (1.2-4.9); Lymphocytes Percent Auto 23.1 % (20-40); Mean Corpuscular Hemoglobin 31.3 pg (27.0-33.0); Mean Corpuscular Volume 94.7 fL (80.0-98.0); Mean Platelet Volume 11.4 fL (9.4-12.4); Monocytes Absolute Auto 0.4 X10*3/uL (0.1-1.2); Monocytes Percent Auto 9.4 % (2-11); Neutrophils Percent Auto 63.4 % (45-73); Platelet Count 180 X10*3/uL (160-400); Red Blood Count 3.39 X10*6/uL (4.60-5.80); Red Cell Distribution Width 18.3 % (11.0-16.0); White Blood Count 4.7 X10*3/uL (4.8-10.8)
[2024-04-10 11:08] LABS: Alanine Aminotransferase 13 U/L (0-40); Albumin Level 4.4 g/dL (3.5-5.0); Alkaline Phosphatase 95 U/L (39-117); Anion Gap 15 (12-20); Aspartate Amino Transferase 26 U/L (5-37); Blood Urea Nitrogen 35 mg/dL (9-16); C Reactive Protein 1.13 mg/dL (< or = 0.50); Calcium 9.8 mg/dL (8.4-10.2); Carbon Dioxide 23 mmol/L (22-29); Chloride 105 mmol/L (96-108); Estimated Glomerular Filt Rate 45; Glucose Random 147 mg/dL (60-115); Potassium 4.1 mmol/L (3.3-5.1); Sodium 139 mmol/L (135-145); Total Protein 7.5 g/dL (6.5-8.0); Uric Acid 5.9 mg/dL (3.4-7.0)
[2024-04-10 11:31] LABS: Erythrocyte Sedimentation Rate 26 MM/HR (0-15)
== END 2024-04-10 09:54 | disposition home or self-care (01) ==
LOC: HO.LAB 09:53
PROVIDERS: PCP Internal Medicine; Visit Provider Student in an Organized Health Care Education/Training Program
DX: K63.9 Disease of intestine, unspecified (principal); M07.60 Enteropathic arthropathies, unspecified site; Z79.631 Long term (current) use of antimetabolite agent; M1A.9XX1 Chronic gout, unspecified, with tophus (tophi)
CPT/HCPCS: 36415; 80053; 84550; 85025; 85652; 86140; 99212

== ENCOUNTER → 2024-04-17 10:51 | Outpatient (REF) | payer MEDICARE, MEDICAID, SELFPAY ==
--- OUTSIDE RECORDS SUMMARY | 2024-04-24 12:55 | XMS_ITS ---
Author Organization [facility] Address [address] [place] [address] Care Team Providers Care Mortgage Processing Manager Name Role Phone Garry Graves MD Primary Care Provider Daisy George Unavailable [phone] Solomon Ventura [phone] REASON FOR VISIT Rx Medications Medication SIG (Take, Route, Fr equency, Duration) Notes Start Date End Date Status Custom Orthotics as directed 09/29/2023 Active Encounters Encounter Location Date Provider Diagnosis [address] [address] 09/28/2023 Solomon Ventura Plan Of Treatment Medication Medication Name Sig Start Date Stop Date Notes Custom Orthotics as directed 09/29/2023 Next Appt Details Provider Name:Daisy collado, 08/30/2024 11:15:00 AM, [address] [facility], [place], [address], Progress Notes * Hector COLON KDOB:[birth year] (68 yo M)Acc No.[id number]:09/28/2023 Patient:?Hector Colon :1955???Age:68 Y???Sex:Male Address:[address], [place], [address] * Refills? Start Custom Orthotics, as directed * true * Date:? Generated for Printi ng/Faxing/eTransmitting on:?04/24/2024 12:55 PM EST
--- OUTSIDE RECORDS SUMMARY | 2024-04-24 12:55 | XMS_ITS ---
Author Organization [facility] Address [address] [place] [address] Care Team Providers Care Oil And Gas Well Treatment Operator Name Role Phone Garry Graves MD Primary Care Provider Daisy George Unavailable [phone] Solomon Ventura Unavailable [phone] Allergies Allergen (clinical drug ingredient) Drug/Non Drug Allergy documented on EMR Reaction Allergy Type Onset Date Status tramadol Tramadol Dizzy Drug Allergy Active REASON FOR VISIT Last Visit PCP 08/17/23 Medications Medication SIG (Take, Route, Frequency, Duration) Notes Start Date End Date Status Vedolizumab 300 MG as directed Intravenous Every 8 weeks Active Vitamin D Active zzzASO Ankle/Foot Stabilizing AFO . As directed Wear Daily for as needed 07/17/2015 Not-Taking Budesonide 3 MG 2 capsules Orally Once a day for 30 day(s) Not-Taking Aleve Not-Taking Mens 50+ Multi Vitamin/Min Active Methotrexate Active Pantoprazole Sodium 40 MG 1 tablet Orally Once a day for 30 day(s) Active tiZANidine HCl 4 MG TAKE 1 TABLET BY MOUTH EVERY 6 HOURS NEEDED Diagnosis Unavailable Oral for 15 Active Tylenol PRN Active Folic Acid Active Furosemide 40 MG 2 tablet Orally Once a day Active Humira Pen Active iron Active Losartan Potassium 50 MG TAKE 1 TABLET BY MOUTH DAILY Oral for 90 Active Orthopedic Extra Depth Shoes With Custom Heat Molded Multidensity Innersoles as directed Wear Daily for as needed Active Allopurinol 100 MG as directed Orally 2 daily morning Active Turmeric Active amLODIPine Besylate 10 MG Orally Once a day Active Eliquis 5 MG Orally twice daily Active Social History Tobacco Use: Social History Observation Description Date Details (start date - stop date) Never Smoker NA - NA Tobacco Use/Smoking Question Answer Notes Are you a: nonsmoker Alcohol Screen Question Answer Notes Did you have a drink containing alcohol in the p ast year? No Points 0 Interpretation Negative Tobacco use other than smoking: Question Answer Notes Are you an other tobacco user? No Problems Problem Type SNOMED Code ICD Code Onset Dates Problem Status W/U Status Risk Notes Problem [id number] Venous insufficiency (I87.2) Active confirmed Vital Signs Height 5 ft 11 in in 08/25/2023 Weight 334 lbs 08/25/2023 BMI 46.58 kg/m2 08/25/2023 Encounters Encounter Location Date Provider Diagnosis [facility] [address] [place] [address] 08/25/2023 Solomon Ventura Plantar fascial fibromatosis M72.2 ; Pain in left foot M79.672 ; Pain in right foot M79.671 ; Primary osteoarthritis, left ankle and foot M19.072 ; Calcaneal spur, left foot M77.32 ; Tinea pedis B35.3 ; Xerosis cutis L85.3 ; Other hammer toe(s) (acquired), left foot M20.42 ; Other hammer toe(s) (acquired), right foot M20.41 ; Metatarsalgia, right foot M77.41 ; Localized edema R60.0 and Venous insufficiency I87.2 Assessments Encounter Date Diagnosis (ICD Code) Assessment Notes Treatment Notes Treatment Clinical Notes Section Notes 08/25/2023 Plantar fascial fibromatosis (ICD-10 - M72.2) 08/25/2023 Pain in left foot (ICD-10 - M79.672) 08/25/2023 Pain in right foot (ICD-10 - M79.671) 08/25/2023 Primary osteoarthritis, left ankle and foot (ICD-10 - M19.072) 08/25/2023 Calcaneal spur, left foot (ICD-10 - M77.32) 08/25/2023 Tinea pedis (ICD-10 - B35.3) 08/25/2023 Xerosis cutis (ICD-10 - L85.3) 08/25/2023 Other hammer toe(s) (acquired), left foot (ICD-10 - M20.42) 08/25/2023 Other hammer toe(s) (acquired), right foot (ICD-10 - M20.41) 08/25/2023 Metatarsalgia, right foot (ICD-10 - M77.41) 08/25/2023 Localized edema (ICD-10 - R60.0) 08/25/2023 Venous insufficiency (ICD-10 - I87.2) Plan Of Treatment Medication Medication Name Sig Start Date Stop Date Notes Orthopedic Extra Depth Shoes With Custom Heat Molded Multidensity Innersoles as directed Wear Daily for as needed Next Appt Details Follow Up: 1 Year, Reason: Provider Name:Daisy collado, 08/30/2024 11:15:00 AM, [address] [place], [address], Progress Notes * Hector COLON KDOB:[birth year] (68 yo M)Acc No.[id number]:08/25/2023 Progress Note Patient:?Hector Colon Edgar Provider:?Solomon Ventura DPM :1955???Age:68 Y???Sex:Male Narciso e:08/25/2023 Address:[address] [place], [place] [id number] Pcp:Garry Graves MD Subjective: * Chief Complaints: * ???Last Visit PCP 08/17/23 * HPI: ???Heel pain:?Nature:?aching.?Location:?B/L, proximal plantar aspect of heel--left more severe than right.?Duration:?several years .?Onset/Cause:?unknown.?Course:?improved with use of upright walker over past sev months.?Aggrevated:?standing, walking.?Treatments:?rest, change in shoes, innersoles, corticosteriod injection; custom orthoses and aleve; rest helps the most; methotrexate for tx of arthritis; Dr. Balderrama--[facility] rheum.?Skin problems:?Nature:?dryness.?Location:?Heel/Rearfoot, B/L .?Duration:?several weeks.?Onset/Cause:?unknown.?Treatments:?medication ( Eucerin).?Severity/Quality:?moderate.?Foot Pain:?Nature:?burning.?Location:?Outside, Midfoot, RIGHT.?Onset:?his black aetrex shoes.?Course:?improved.?Aggrevated:?shoes.?Treatments:?rest, change in shoes.? * ROS:?General/Constitutional:?Nausea?denies.?Vomiting?denies.?Hunger Thirst?denies.?Loss appetite?denies.?Chills?denies.?Fatigue?denies.?Fever?denies.?Night Sweats?denies.?Unexplained weight loss?denies.?Ophthalmologic:?Blurred vision?denies.?Red eye?denies.?HEENTM:?Dentures?denies.?Dizziness?denies.?Glasses/contacts?denies.?Retinopathy?de nies.?Blurred/double vision?denies.?TMJ?denies.?Discharge/drainage?denies.?Implants?denies.?Hard of hearing denies.?Difficulty chewing/swallowing/speaking?denies.?Nose bleeds?denies.?Sore mouth?denies.?Swollen glands?denies.?Respiratory:?On Oxygen?denies.?Pneumonia/pleurisy?denies.?Bronchitis?denies.?Emphysema?denies.?C oughing?denies.?Cough blood?denies.?Shortness of breath?denies.?Wheezing?denies.?Cardiovascular:?Pacemaker?denies.?MVP?denies.?WPW?denies.?CHF?denies.?Heart attack?denies.?Septal defect?denies.?Rapid beat?denies.?Chest pain ?denies.?Atrial Fib.?denies.?Murmur/Palpitations?denies.?Gastrointestinal:?Hemorrhoids?denies.?Stomach/Abdominal pain?denies.?Dark blood stool?denies.?Irritable bowel ?denies.?Constipation?denies.?Diarrhea?denies.?Vomiting?denies.?Hematology:?Swelling?admits.?Bruising?denies.?Bleeding problem?denies.?Genitourinary:?Blood urine?denies.?Frequent/Painfu/urination/bladder control?denies.?Kidney stones?denies.?Infection (UTI)?denies.?Nephropathy?denies.?Musculoskeletal:?Hammertoes?denies.?Bunions?denies.?Scoliosis/kyphosis?denies.?Muscle cramps / walking?denies.?Generalized aches and pains?denies.?Weakness?denies.?Integ.:?Raya?denies.?Scars?denies.?Corns/calluses?denies.?Ingrown nails?denies.?Painful nails?denies.?Rashes?denies.?Neurologic:?Difficulty sleeping?denies.?Bipolar?denies.?Brain disorder?denies.?Balance trouble?denies.?Confusion?denies.?Fainting/blackouts?denies.?Headache?denies.?Tr emors?denies.? * Medical History:? * Surgical History:?colon/inte stinal surgery heart surgery unspecified lasik * Hospitalization/Major Diagno stic Procedure:?Denies Past Hospitalization * Family History:?Mother: aliv e.?Father: , diagnosed with Other malignant neoplasm of unspecified site.?Spouse: alive.? * Social History:?Tobacco Use:?Tobacco Use/Smoking?Are you a:?nonsmoker ?Tobacco use other than smoking?Are you an other tobacco user??No ???Drugs/Alcohol:?Drugs?Have you used drugs other than those for medical reasons in the past 12 months??No ?Alcohol Screen?Did you have a drink containing alcohol in the past year??No ?Points?0 ?Interpretation?Negative ???Miscellaneous:?Caffeine: yes, frequency:, 1-2 cups per day. ?Children: yes, 2. ?no Exercise. ?Marital status: . ?Occupation: Retired-[employer]. * Medications:?TakingAllopurin ol 100 MG Tablet as directed Orally , Notes: 2 daily morningOrthopedic Extra Depth Shoes With Custom Heat Molded Multidensity Innersoles as directed Wear DailyTurmeric amLODIPine Besylate 10 MG Tablet Orally Once a dayEliquis 5 MG Tablet Orally twice dailyFolic Acid Furosemide 40 MG Tablet 2 tablet Orally Once a dayHumira Pen iron Losartan Potassium 50 MG Tablet TAKE 1 TABLET BY MOUTH DAILY Oral Mens 50+ Multi Vitamin/Min Methotrexate Pantoprazole Sodium 40 MG Tablet Delayed Release 1 tablet Orally Once a daytiZANidine HCl 4 MG Tablet TAKE 1 TABLET BY MOUTH EVERY 6 HOURS NEEDED Diagnosis Unavailable Oral Tylenol , Notes: PRNVedolizumab 300 MG Solution Reconstituted as directed Intravenous Every 8 weeksVitamin D Taking Allopurinol 100 MG Tablet as directed Orally , Notes: 2 daily morningTaking Orthopedic Extra Depth Shoes With Custom Heat Molded Multidensity Innersoles as directed Wear DailyTaking Turmeric Taking amLODIPine Besylate 10 MG Tablet Orally Once a dayTaking Eliquis 5 MG Tablet Orally twice dailyTaking Folic Acid Taking Furosemide 40 MG Tablet 2 tablet Orally Once a dayTaking Humira Pen Taking iron Taking Losartan Potassium 50 MG Tablet TAKE 1 TABLET BY MOUTH DAILY Oral Taking Mens 50+ Multi Vitamin/Min Taking Methotrexate Taking Pantoprazole Sodium 40 MG Tablet Delayed Release 1 tablet Orally Once a dayTaking tiZANidine HCl 4 MG Tablet TAKE 1 TABLET BY MOUTH EVERY 6 HOURS NEEDED Diagnosis Unavailable Oral Taking Tylenol , Notes: PRNTaking Vedolizumab 300 MG Solution Reconstituted as directed Intravenous Every 8 weeksTaking Vitamin D Not-Taking/PRNzzzASO Ankle/Foot Stabilizing AFO . . As directed Wear DailyBudesonide 3 MG Capsule Delayed Release Particles 2 capsules Orally Once a dayAleve Medication List reviewed and reconciled with the patientNot-Taking/PRN zzzASO Ankle/Foot Stabilizing AFO . . As directed Wear DailyNot-Taking/PRN Budesonide 3 MG Capsule Delayed Release Particles 2 capsules Orally Once a dayNot-Taking/PRN Aleve Medication List reviewed and reconciled with the patient * Allergies:?Tramadol: Dizzy - Side Effectsyes[Allergies Verified] Objective: * Vitals:?Ht: 5 ft 11 in, Wt:3 34, BMI:46.58, Shoe size:12. * Examination: ???General Examination: ?GENERAL APPEARANCE:?alert, well hydrated, in no distress , good attention to hygiene.?ORIENTED:?person,place, and time.?Neurological: ?SENSORY:?Neurological exam demonstrates mild pop lateral right 5th mt shaft and base.?TINEL'S COMPRESSION:?negative tarsal tunnel, misael pedis, and medial calcaneal nerves b/l.?BABINSKI REFLEX:?absent.?Vascular: ?DP PULSES:?05/19, B/L .?PT PULSES:?05/19, B/L .?CAPILLARY FILL TIME:?3 secs. per digit, b/l .?HAIR GROWTH/TEXTURE/ELASTICITY/TURGOR:?absent .?EDEMA:? 1/4, B/L, Feet, Ankle(s), Leg(s).?TELANGECTASIA:? moderate.?VARICOSITIES:? present, moderate, nonpainful, B/L.?Dermatologic: ?SKIN FINDINGS:?Skin exam reveals Keratotic lesion(s) located at, Plantar, Heel(s), B/L , Skin shows sign(s) of, dryness, scaling, in a stocking fashion, no fissure(s) present, B/L.?Heel Pain: ?INSPECTION REVEALS:? Pain on Palpation to Plantar Fascia med. and central bands, intrinsic musc., infracalcaneal bursa, and med calc tubercle, right foot mild pop.?Orthopedic: ?MUSCLE STRENGTH:?5/5 all groups in a symmetrical fashion ping .?GAIT ABNORMALITY:?pronated, abducted, b/l .?DIGITAL DEFORMITIES:? Digital contracture--flexible hts ping 4th .?FOOTWEAR:? good condition, exhibit proper fit and accomodation for pedal deformities. OT were inspected and noted to be worn, but in good condition giving proper support at the present time.? 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 Plan: * Treatment: * Procedure Codes:? * Preventive Medicine:? ??Counseling:?Discussion:?-14: Office or other outpatient visit for the evaluation and management of an established patient, which required a medically appropriate history and/or examination and moderate level of decision making. When using time for code selection, 30-39 min of total time was spent on the day of the encounter interpreting the data and educating the patient as to the nature of their condition, treatment options available according to their individual PMH, meds, allergies, and overall health/living conditions, as well as any potential risks or complications that may occur from a failure to adhere to, and participate in, the recommended course of therapy. The discussion included a complete verbal, and/or written explanation of the examination results, any x-rays taken, the proposed diagnosis, and outline of the treatment plan. A schedule for future care needs was also explained. The patient verbalized an understanding of the instructions at this time and agreed to be an active participant in their treatment. If the patient should think of any questions or concerns after the visit, I have encouraged the patient to call the office--pt to continue with total permanent disability due to chronic pain and recommend pnos for new aetrex shoes ; pt to consider otc compression stockings ping legs for edema control.? * Follow Up:?1 Year * Images: * Sign off status: Completed true * Provider:?Solomon Ventura DPM Date:? 024 Generated for Capo raman/Davidson/Agathaitting on:?04/24/2024 12:55 PM EST History and Physical Notes * HPI (History of Present Illness) Category Sub-Category Detail Notes Category Not es Heel pain Duration: several years Nature: aching Location: B/L, proximal plantar aspect of heel --left more severe than right Onset/Cause: unknown Aggravated: standing, walking Course: improved with use of upright walker over past sev months Treatments: rest, change in shoe s, innersoles, corticosteriod injection; custom orthoses and aleve; rest helps the most; methotrexate for tx of arthritis; Dr. Balderrama--[facility] rheum Skin problems Nature: dryness Location: Heel/Rearfoot, B/L Duration: several weeks Onset/Cause: unknown Treatments: medication ( Eucerin ) Severity/Quality: moderate Foot Pain Nature: burning Location: Outside, Midfoot, RI GHT Onset: his black aetrex qu[place] es Course: improved Aggravated: shoes Treatments: rest, change in shoe s Examination Category Sub-Category Detail Notes Category Not es Heel Pain INSPECTION REVEALS: Pain on Palp ation to Plantar Fascia med. and central bands, intrinsic musc., infracalcaneal bursa, and med calc tubercle, right foot mild pop Neurological SENSORY: Neurological exa m demonstrates mild pop lateral right 5th mt shaft and base BABINSKI REFLEX: absent TINEL'S COMPRESSION: negative tarsal bud sindi, misael pedis, and medial calcaneal nerves b/l Dermatologic SKIN FINDINGS: Skin exam reveal s Keratotic lesion(s) located at, Plantar, Heel(s), B/L , Skin shows sign(s) of, dryness, scaling, in a stocking fashion, no fissure(s) present, B/L Orthopedic GAIT ABNORMALITY: pronated, abducted, b/l FOOTWEAR: good condition, exhi bit proper fit and accomodation for pedal deformities. OT were inspected and noted to be worn, but in good condition giving proper support at the present time DIGITAL DEFORMITIES: Digital contracture --flexible hts ping 4th MUSCLE STRENGTH: 5/5 all groups in a symmetrical fashion ping General Examination GENERAL APPEARANCE: alert, w ell hydrated, in no distress , good attention to hygiene ORIENTED: person,place, and ti me Vascular DP PULSES(B): 1/4, B/L PT PULSES(B): 1/4, B/L CAPILLARY FILL TIME: 3 secs. per digit, b/l TROPHIC CONDITION-TEXTURE/EL ASTICITY/TURGOR/HAIR GROWTH(B): absent EDEMA(C): 1/4, B/L, Feet, Ankl e(s), Leg(s) TELANGECTASIA: moderate VARICOSITIES: present, moderate, n onpainful, B/L
--- OUTSIDE RECORDS SUMMARY | 2024-04-24 12:56 | XMS_ITS | Patient Health Record ---
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 Name Role Phone Star SEGURA, Garry Primary Care Provider Daisy George Unavailable [phone] Lorenzo Solomon Unavailable [phone] Allergies Allergen (clinical drug ingredient) Drug/Non Drug Allergy documented on EMR Reaction Allergy Type Onset Date Status tramadol Tramadol Dizzy Drug Allergy Active Reason For Referral No Information Medications Medication SIG (Take, Route, Frequency, Duration) Notes Start Date End Date Status Vedolizumab 300 MG as directed Intravenous Every 8 weeks Active Folic Acid Active Vitamin D Active Furosemide 40 MG 2 tablet Orally Once a day Active zzzASO Ankle/Foot Stabilizing AFO . As directed Wear Daily for as needed 07/17/2015 Not-Taking Humira Pen Active Budesonide 3 MG 2 capsules Orally Once a day for 30 day(s) Not-Taking iron Active Aleve Not-Taking Losartan Potassium 50 MG TAKE 1 TABLET BY MOUTH DAILY Oral for 90 Active Mens 50+ Multi Vitamin/Min Active Allopurinol 100 MG as directed Orally 2 daily morning Active Methotrexate Active Pantoprazole Sodium 40 MG 1 tablet Orally Once a day for 30 day(s) Active Turmeric Active tiZANidine HCl 4 MG TAKE 1 TABLET BY MOUTH EVERY 6 HOURS NEEDED Diagnosis Unavailable Oral for 15 Active amLODIPine Besylate 10 MG Orally Once a day Active Tylenol PRN Active Eliquis 5 MG Orally twice daily Active Orthopedic Extra Depth Shoes With Custom Heat Molded Multidensity Innersoles as directed Wear Daily for as needed Active Custom Orthotics as directed 09/29/2023 Active Immunizations Vaccine Route Administration Date Status Comme nts COVID-19 Pfizer BioNTech Vaccine Unknown 12/30/2020 Administered 1st 07/25/2020 2nd 08/16/2020 Influenza Unknown 12/30/2020 Administered Pneumococcal Unknown 02/11/2020 Administered Social History Tobacco Use: Social History Observation [...] Problem Status W/U Status Risk Notes Problem Localized, primary osteoarthritis of the ankle and/or foot (470559477) Primary osteoarthritis, left ankle and foot (M19.072) Active confirmed Problem Plantar fascial fibromatosis (13185335) Plantar 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) Active confirmed Problem Acquired hammer toe of right foot (7325661318913721) Other hammer toe(s) (acquired), right foot (M20.41) Active confirmed Problem Acquired hammer toe of left foot (0949005244977554) Other hammer toe(s) (acquired), left foot (M20.42) Active confirmed Problem 58471178 Venous insufficiency (I87.2) Active confirmed Vital Signs Height 5 ft 11 in in 08/25/2023 Weight 334 lbs 08/25/2023 BMI 46.58 kg/m2 08/25/2023 Encounters Encounter Location Date Provider Diagnosis [address] [address] 08/25/2023 Solomon Ventura Plantar fascial fibromatosis M72.2 [...] Localized edema R60.0 and Venous insufficiency I87.[address] [facility] [address] [address] 09/28/2023 Solomon Ventura Assessments Encounter Date Diagnosis (ICD Code) Assessment Notes Treatment Notes Treatment Clinical Notes Section Notes 08/25/2023 Pain in left foot (ICD-10 - M79.672) 08/25/2023 Plantar fascial fibromatosis (ICD-10 - M72.2) 08/25/2023 Pain in right foot (ICD-10 - [...] insufficiency (ICD-10 - I87.2) Plan Of Treatment Pending Test Test Name Order Date X ray : Foot, left 3V 03/27/2015 Next Appt Details Provider Name:Daisy collado, 08/30/2024 11:15:00 AM, [address] [place] [address], [phone], Insurance Providers Payer Name Payer Address Payer Phone Subscriber Number Group Number Insured Name Patient Relationship to Insured Coverage Start Date Coverage End Date Medicare [employer] [address] [place] [address] [id number] Hector Colon Self - patient is the insured Medical (General) History Medical History History ICD Code transfusions diverticulosis chicken pox back, hip, knee pain chron's Surgical History Surgery Date(Month/Year) colon/intestinal surgery heart surgery unspecified [email or web address]
--- OUTSIDE RECORDS SUMMARY | 2024-04-24 12:56 | XMS_ITS | Continuity of Care Document ---
Author Organization [facility], [facility] Address [address] [place] [address] Assessment Encounter Date Assessment Date Assessment LastModified by Organization Details LastModified Time 02/08/2024 02/08/2024 Patient presente d to office today for their Medicare Annual Wellness Visit. Education was provided on healthy nutrition, including a diet rich in fruits and vegetables, minimizing simple carbohydrates, salt, and saturated fats. Encouraged regular cardiovascular exercise such as walking at least 30 minutes daily, 5 times per week. Emphasized preventive health measures and educated pt on fall prevention and community-based lifestyle interventions to help reduce health risks and promote healthy living. [email or web address] Not available 02/08/2024 16:33:32 Plan of Treatment Reminders Order Date Submit Date Provider Last Modified By Organization Details Last Modified Time Details Appointments None record ed. Lab None record ed. Referral None record ed. Procedures None record ed. Surgeries None record ed. Imaging None record ed. Medication Orders None record ed. Patient TargetsNo targets recorded. Patient Instructions Encounter Date Encounter Id Patient Instructions Last Modified By Organization Details Last Modified Time 02/08/2024 [id number] pulse oximetry* Not available 02/09/2024 23:02:02 sleep apnea: car e instructions Not available 02/09/2024 23:02:02 Reason for Referral None Reported. Results Created Date Observation Date Name Description Value Unit Range Abnormal Flag Note LastModifiedBy Organization Detail LastModifiedTime 02/08/2002/08/2024 pulse oxime try* Result 97 Not Available [facility] [address] [facility], [place], [address], 02/06/2024 12:00:52 Result Notes None recorded. Problems Name Problem SNOMED Code Status Onset Date Resolution Date Notes Provider Name and Address Organization Details Recorded Time Crohn's disease 81180285 Active 2019 Garry Graves, DO [address], [place], [address], [facility] 0 11:51:44 Degeneration of lumbar intervertebral disc 76301288 Active 2020 Garry Graves, DO [address], [place], [address], [facility] 1 10:47:53 Osteoarthritis 777271120 Active 2021 Garry Graves, DO [address], [place], [address], [facility] 2 15:14:41 Degenerative joint disease of hand 79346298 Active 2022 SAI PIERCE [address], [place], [address], [facility] 3 15:28:27 COVID-19 914448112 Active 2023 Garry Graves, DO [address], [place], [address], [facility] 4 13:31:54 Chronic tophaceous gout 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 Active 2023 Garry Graves, DO [address], [place], [address], [facility] 4 11:11:39 Acute right otitis media 158955219 Active 2023 Garry Graves, DO [address], [place], [address], [facility] 4 11:34:54 Psoriatic arthritis 901412898 Active 2023 Garry Graves, DO [address], [place], [address], [facility] 4 14:16:12 Morbid obesity 988480479 Active 2017 Susan Florez [facility] 8 08:45:56 [facility] 58593607 [facility] 08:45:59 Obstructive sleep apnea syndrome 16601894 Active 2017 Susan Florez [facility] 8 08:46:05 Hypertensive disorder 73997207 Active 2017 Susan Florez [facility] 8 08:46:10 Problem Notes None recorded. Procedures Surgical History Date Name Laterality Status Provider Name and Address Organization Details Recorded Time 01/09/20 19 Corticosteroid Injection completed Garry Graves DO [address] [place] [address], [phone], [facility] 01/08/2019 10:11:59 Imaging Results None recorded. Procedure Notes None recorded. Medical Equipment None Reported. Allergies Allergen ID Allergen Name Allergen Category Reaction Reaction Severity Criticality Documentation Date Start Date Code Code System Note Provider Name and Address Organization Details Recorded Time 3160 meloxicam medicatio n diarrhea severe Not available 11/20/20182018 49151 RxNorm Garry Graves DO [address] [place] [address], [phone], [facility] 9 17:32:39 4698 tramadol medicatio n dizziness moderate Not available 01/06/2021 84985 RxNorm SAI PIERCE [address] [place] [address], [phone], [facility] 1 11:05:59 Medications Name Sig Start Date Stop Date Status Note LastModified by Organization Details LastModified Time losartan 50 mg tablet TAKE 1 TABLET BY MOUTH DAILY 04/30 completed Not Available Not Available Not Available amoxicillin 500 mg capsule 11/20 completed Not Available Not Available Not Available furosemide 40 mg tablet TAKE 2 TABLETS BY MOUTH EVERY DAY 2023 active Not Available Not Available Not Avai lable prednisone 10 mg tablet Take 1 tablet every day by oral route for 12 days. 01/06 completed Not Available Not Available Not Available sulfasalazi ne 500 mg tablet TAKE 2 TABLETS BY MOUTH TWICE DAILY WITH FOOD 03/16 completed Not Available Not Available Not Available azithromyci n 250 mg tablet TAKE 2 TABLETS BY MOUTH ONCE DAILY FOR 1 DAY THEN 1 TABLET BY MOUTH ONCE DAILY FOR 4 DAYS 08/16 completed Not Available Not Available Not Available tizanidine 4 mg tablet TAKE 1 TABLET BY MOUTH EVERY 6 HOURS NEEDED 06/06 completed Not Available Not Available Not Available meloxicam 15 mg tablet Take 1 tablet every day by oral route for 30 days. 11/20 completed Not Available Not Available Not Available prednisone 20 mg tablet TAKE 1 TABLET BY MOUTH EVERY DAY FOR 7 DAYS 04/20 completed Not Available Not Available Not Available prednisone 5 mg tablet 01/06 completed Not Available Not Available Not Available sulfasalazi ne 500 mg tablet,bartolo yed release TAKE 2 TABLETS BY MOUTH TWICE DAILY 03/16 completed Not Available Not Available Not Available insulin syringe U-100 with needle 1 mL 29 gauge x 716 USE TO INJECT METHOTREX ATE EVERY 7 DAYS active Not Available Not Available No t Available allopurinol 100 mg tablet TAKE 1 TABLET BY MOUTH DAILY WITH 300MG TABLET FOR A TOTAL OF 400MG DAILY active Not Available Not Available No t Available methotrexat e sodium 25 mg/mL injection solution ADMINISTE R 1 ML UNDER THE SKIN EVERY WEEK active Not Available Not Available No t Available tramadol 50 mg tablet Take 1 tablet every 6 hours by oral route for 30 days. 01/06 completed Not Available Not Available Not Available amoxicillin 500 mg tablet TAKE 4 TABLETS ONE HOUR PRIOR TO DENTAL PROCEDURE 08/16 completed Not Available Not Available Not Available vancomycin 125 mg capsule TAKE 1 CAPSULE BY MOUTH FOUR TIMES DAILY FOR 10 DAYS 11/28 completed Not Available Not Available Not Available oxycodone-a cetaminophe n 5 mg-325 mg tablet TAKE 1 TABLET BY MOUTH EVERY 6 HOURS NEEDED FOR PAIN active Not Available Not Available No t Available methotrexat e sodium 2.5 mg tablet TAKE 5 TABLETS BY MOUTH EVERY WEEK w/ injection s 08/24 completed Not Available Not Available Not Available oxycodone-a cetaminophe n 10 mg-325 mg tablet TAKE 1 TABLET BY MOUTH EVERY 6 HOURS FOR 7 DAYS NEEDED 04/20 completed Not Available Not Available Not Available amlodipine 10 mg tablet TAKE 1 TABLET BY MOUTH EVERY DAY 2023 active Not Available Not Available Not Avai lable cephalexin 500 mg capsule TAKE 1 CAPSULE BY MOUTH EVERY 6 HOURS FOR 9 DAYS 04/20 completed Not Available Not Available Not Available pantoprazol e 40 mg tablet,bartolo yed release TAKE 1 TABLET BY MOUTH EVERY DAY 2023 active Not Available Not Available Not Avai lable folic acid 1 mg tablet TAKE 1 TABLET BY MOUTH DAILY active Not Available Not Available No t Available allopurinol 300 mg tablet TAKE 1 TABLET BY MOUTH DAILY 02/07 completed Not Available Not Available Not Available budesonide DR - ER 3 mg capsule,del ayed,extend ed release TAKE 3 CAPSULES BY MOUTH DAILY 03/16 completed Not Available Not Available Not Available Cheratussin AC 10 mg-100 mg/5 mL oral liquid Take 10 mL every 4 hours by oral route. 08/02 completed Not Available Not Available Not Available methylpredn isolone 4 mg tablets in a dose pack FOLLOW PACKAGE DIRECTION S 04/20 completed Not Available Not Available Not Available losartan 100 mg tablet TAKE 1 TABLET BY MOUTH DAILY active Not Available Not Available No t Available naproxen 500 mg tablet Take 1 tablet twice a day by oral route as needed for 30 days. 01/08 completed Not Available Not Available Not Available amoxicillin 875 mg-potassiu m clavulanate 125 mg tablet TAKE 1 TABLET BY MOUTH EVERY 12 HOURS FOR 10 DAYS 10/18 completed Not Available Not Available Not Available Ventolin HFA 90 mcg/actuati on aerosol inhaler INHALE 2 PUFFS BY MOUTH THREE TIMES A DAY 08/02 completed Not Available Not Available Not Available methotrexat e sodium (PF) 25 mg/mL injection solution INJECT 0.6ML UNDER THE SKIN EVERY WEEK 08/16 completed Not Available Not Available Not Available cyclobenzap rine 5 mg tablet TAKE 1 TABLET BY MOUTH THREE TIMES DAILY 03/16 completed Not Available Not Available Not Available BD SafetyGlide Insulin Syringe 1 mL 29 gauge x 1/2 USE ONCE WEEKLY TO INJECT METHOTREX ATE active Not Available Not Available No t Available Boostrix Tdap 2.5 Lf unit-8 mcg-5 Lf/0.5 mL intramuscul ar syringe 02/07 completed Not Available Not Available Not Available amoxicillin 500mg before dental procedure s 02/07 completed Not Available Not Available Not Available Iron (ferrous sulfate) active Not Available Not Available Not Available Vitamin D3 5,000 units qd active Not Available Not Available No t Available Humira Pen Crohn's-Ulc Colitis-Hid Sup Starter 40 mg/0.8 mL subcut kit INJECT FOUR PENS 40 MG/0.8 ML ON DAY 1 AND INJECT 2 PENS 40MG/0.8M L ON DAY 15 OF THERAPY 01/06 completed Not Available Not Available Not Available Twinrix (PF) 720 ALEX unit-20 mcg/mL intramuscul ar syringe 11/28 completed Not Available Not Available Not Available diclofenac 1 % topical gel APPLY 2 GRAM TO THE AFFECTED AREA(S) BY TOPICAL ROUTE 4 TIMES PER DAY 05/23 completed Not Available Not Available Not Available Xifaxan 550 mg tablet Take 1 tablet 3 times a day by oral route for 14 days. 05/07 completed Not Available Not Available Not Available Suprep Bowel Prep Kit 17.5 gram-3.13 gram-1.6 gram oral solution 02/07 completed Not Available Not Available Not Available Eliquis 5 mg tablet TAKE 1 TABLET BY MOUTH TWICE DAILY 2023 active Not Available Not Available Not Avai lable vedolizumab 300 mg intravenous solution Inject 300 mg every 2 months by intraveno us route. active Not Available Not Available No t Available BD Veo Insulin Syringe Ultra-Fine 1/2 mL 31 gauge x 15/64 USE TO INJECT METHOTREX ATE UNDER THE SKIN EVERY 7 DAYS active Not Available Not Available No t Available Humira(CF) Pen 40 mg/0.4 mL subcutaneou s kit INJECT 0.4 ML SUBCUTANE OUSLY EVERY WEEK 11/28 completed Not Available Not Available Not Available BinaxNOW COVID-19 Ag Self Test kit TEST DIRECTED TODAY 04/30 completed Not Available Not Available Not Available Vitals Date Recorded Body height Body mass index (BMI) Body weight Heart rate Oxygen saturation Oxygen saturation in Arterial blood by Pulse oximetry Systolic blood pressure Diastolic blood pressure Systolic blood pressure Diastolic blood pressure Provider Name and Address Organization Details Last Updated DateTime 4 177.8 cm 44.9 kg/m2 491100. 41 g 54 /min 97 % 97 % 140 mm[Hg] 70 mm[Hg] 132 mm[Hg] 70 mm[Hg] Jeane Peralta [facility] 16:35:02 Social History Question Answer Notes LastModified by Organizat ion Details LastModified Time Tobacco Smoking Status Former Smoker Not Available [facility] 03/18/2020 03:36:24 What Was The Date Of Your Most Recent Tobacco Screening? 02/08/2024 [email or web address] Information not available 02/08/2024 Do You Or Have You Ever Used Any Other Forms Of Tobacco Or Nicotine? No [email or web address] Information not available 08/24/2021 Sex: Unknown Functional Status None recorded. Mental Status None recorded. Family History Nothing Reported. Medical History No medical history recorded. Immunizations Vaccine Type Date Status Provider Name and Address Organization Details Recorded Time pneumococcal polysaccharide PPV23 04/28/2020 completed Nathalie Balicki null, [facility] 11/25/2020 11:26:53 COVID-19, mRNA, LNP-S, PF, 30 mcg/0.3 mL dose 07/25/2020 completed Nathalie Balicki null, [facility] 11/25/2020 11:27:04 COVID-19, mRNA, LNP-S, PF, 30 mcg/0.3 mL dose 08/16/2020 completed Nathalie Balicki null, [facility] 11/25/2020 11:27:11 Hep B, unspecified formulation 10/29/2019 completed Nathalie Balicki null, [facility] 11/25/2020 11:27:24 Hep B, unspecified formulation 12/04/2019 completed Nathalie Balicki null, [facility] 11/25/2020 11:27:31 Hep B, unspecified formulation 05/30/2020 completed Nathalie Balicki null, [facility] 11/25/2020 11:27:37 Hep A, unspecified formulation 10/29/2019 completed Nathalie Balicki null, [facility] 11/25/2020 11:27:57 Hep A, unspecified formulation 12/04/2019 completed Nathalie Balicki null, [facility] 11/25/2020 11:28:04 Hep A, unspecified formulation 05/30/2020 completed Nathalie Jf burgess [facility] 11/25/2020 11:28:12 COVID-19, mRNA, LNP-S, PF, 30 mcg/0.3 mL dose 12/30/2020 completed Susan burgess [facility] Internal [facility] 01/06/2021 09:14:20 Influenza, split virus, quadrivalent, preservative 12/30/2020 completed Susan burgess [facility] 08/24/2021 10:36:11 Tdap 01/16/2019 completed Susan burgess [facility] 01/17/2019 08:11:56 Past Encounters Encounter ID Performer Location Encounter Start Date Encounter Closed Date Diagnosis/Indication Diagnosis SNOMED-CT Code Diagnosis ICD10 Code [id number] Garry Graves DO [facility] [address] [place] [place] [address] 02/08/2024 16:03:32 02/10/2024 08:57:21 Congestive heart failure 92524717 I50.89 Psoriatic arthritis 1563 60985 L40.50 Obstructiv e sleep apnea syndrome 51723715 G47.33 Health Concerns Section Related Observation LastModified by Organization Detai ls LastModified Time None Recorded Concern Status LastModified by Organization Details LastModified Time None Recorded Payers Encounter Date Sequence Insurance Name Policy Number Policy Damon Covered Member ID Damon Member ID Guarantor Name 02/08/2024 2 [place] Hector Colon [id number] Hector Colon 02/08/2024 1 [place] [employer] Hector Colon [id number] Hector Colon Notes Date Note Type Note Provider Name and Address Organization Details Recorded Time 02/08/2024 text/html here for ambreen vidal nd is doing jessica MTX and recent lab shows ongoing anemia creat is still ok overallarhtritis is bothering himcrohns is quiet ]'gout has been the issue uric acid is 7.2 Garry Graves DO [address] [place] [address],[facility] [place], [address], [facility] 02/09/2024 23:02:06
--- OUTSIDE RECORDS SUMMARY | 2024-04-24 12:56 | XMS_ITS | Data Portability ---
Author Organization [facility] Address [address] [place] [address] Assessment Encounter Date Assessment Date Assessment LastModified by Organization Details LastModified Time 11/26/2022 11/26/2022 [id number] [place] [id number] (MANAGER PRODUCT MANAGEMENT) MDM MODERATE MUST MEET 2 OUT OF 3 ELEMENTS: PROBLEMS, DATA OR RISK ELEMENT 1: PROBLEMS ADDRESSED 1 OR MORE CHRONIC ILLNESS WITH EXACERBATION OR 2 OR MORE STABLE CHRONIC ILLNESSES OR 1 UNDIAGNOSED NEW PROBLEM OR 1 ACUTE ILLNESS W/SYMPTOMS OR 1 ACUTE COMPLICATED INJURY ELEMENT 2: DATA MUST MEET 1 OF 3 CATEGORIES CATEGORY 1: REVIEW OF PRIOR EXTERNAL NOTES, REVIEW OF RESULTS, ORDERING OF EACH TEST, ASSESSMENT REQUIRING INDEPENDENT HISTORIAN OR CATEGORY 2: INDEPENDENT INTERPRETATION OF TESTS BY ANOTHER PHYSICIAN OR SPECIALIST OR CATEGORY 3: DISCUSSION OF MGT OR TEST INTERPRETATION W/EXTERNAL PHYSICIAN OR SPECIALIST ELEMENT 3: RISK RISK OF COMPLICATIONS AND/OR MORBIDITY OR MORTALITY OF PATIENT MANAGEMENT PROVIDER MUST THOROUGHLY DOCUMENT EACH ELEMENT THAT IS COVERED Not available 11/26/2022 10:48:44 08/17/2023 08/17/2023 [address] [place] [address] (MANAGER PRODUCT MANAGEMENT) MDM MODERATE MUST MEET 2 OUT OF 3 ELEMENTS: PROBLEMS, DATA OR RISK ELEMENT 1: PROBLEMS ADDRESSED 1 OR MORE CHRONIC ILLNESS WITH EXACERBATION OR 2 OR MORE STABLE CHRONIC ILLNESSES OR 1 UNDIAGNOSED NEW PROBLEM OR 1 ACUTE ILLNESS W/SYMPTOMS OR 1 ACUTE COMPLICATED INJURY ELEMENT 2: DATA MUST MEET 1 OF 3 CATEGORIES CATEGORY 1: REVIEW OF PRIOR EXTERNAL NOTES, REVIEW OF RESULTS, ORDERING OF EACH TEST, ASSESSMENT REQUIRING INDEPENDENT HISTORIAN OR CATEGORY 2: INDEPENDENT INTERPRETATION OF TESTS BY ANOTHER PHYSICIAN OR SPECIALIST OR CATEGORY 3: DISCUSSION OF MGT OR TEST INTERPRETATION W/EXTERNAL PHYSICIAN OR SPECIALIST ELEMENT 3: RISK RISK OF COMPLICATIONS AND/OR MORBIDITY OR MORTALITY OF PATIENT MANAGEMENT PROVIDER MUST THOROUGHLY DOCUMENT EACH ELEMENT THAT IS COVERED Not available 08/17/2023 11:35:12 10/19/2023 10/19/2023 [id number] [place] [address] (MANAGER PRODUCT MANAGEMENT) MDM HIGH MUST MEET 2 OUT OF 3 ELEMENTS: PROBLEMS, DATA OR RISK ELEMENT 1: PROBLEMS 1 OR MORE CHRONIC ILLNESS W/SEVERE EXACERBATION, PROGRESSION MAY REQUIRE HOSPITAL LEVEL CARE OR 1 ACUTE OR CHRONIC ILLNESS OR INJURY THAT POSES A THREAT TO LIFE OR BODILY FUNCTION ELEMENT 2: DATA: MUST MEET 2 OF 3 CATEGORIES CATEGORY 1 REVIEW OF PRIOR EXTERNAL NOTES REVIEW OF THE RESULTS ORDERING OF EACH TEST ASSESSMENT REQUIRING INDEPENDENT HISTORIAN(S) CATEGORY 2: INDEPENDENT INTERPRETATION OF TESTS BY ANOTHER PROVIDER/SPECIALI ST CATEGORY 3: DISCUSSION OF MGT OR TEST INTERPRETATION W/EXTERNAL PHYSICIAN/SPECIAL IST ELEMENT 3: RISK HIGH RISK OF MORBIDITY FROM ADDITIONAL DIAGNOSTIC TESTING OR TREATMENT PROVIDER MUST THOROUGHLY DOCUMENT EACH ELEMENT THAT IS COVERED Not available 10/19/2023 14:21:17 02/08/2024 02/08/2024 Patient presente d to office [...] reduce health risks and promote healthy living. [email or web address] Not available 02/08/2024 16:33:32 Plan of Treatment Reminders Order Date Submit Date Provider Last Modified By Organization Details Last Modified Time Details Appointments None recorded. Lab vitamin D, 25-hydroxy , total, serum 2022 023 [facility], [address] [place] [address], [address], 3 12:56:38 vitamin B12, serum 2022 023 [facility], [address] [place] [address], [address], 3 12:56:38 vitamin B1 (thiamine) , serum 2022 023 [facility], [address] [place] [address], [address], 3 11:16:12 folate, serum 2022 023 [facility], [address] [place], [address], 3 12:56:38 CMP, serum or plasma 2022 023 ATHENAX [facility], [address] [place], [address], 3 10:55:22 pro BNP (pro B-type natriureti c peptide), serum or plasma 2022 023 NELA [facility], [address] [place], [address], 3 12:56:38 CBC 2022 023 ATHENAX [facility], [address] [place], [address], 3 10:55:21 Referral None recorded. Procedures None recorded. Surgeries None recorded. Imaging None recorded. Medication Orders amoxicilli n 875 mg-potassi um clavulanat e 125 mg tablet [address] [id number], [address] [place], [place], [id number], 13:55:23 Patient TargetsNo targets recorded. Patient Instructions Encounter Date Encounter Id Patient Instructions Last Modified By Organization Details Last Modified Time 08/17/2023 [id number] pulse oximetry* Not available 08/17/2023 11:13:27 10/19/2023 [id number] When You Want to Lose Weight: Care Instructions Not available 10/19/2023 14:23:11 crohn's disease: care instructions Not available 10/19/2023 14:23:11 heart failure: care instructions Not available 10/19/2023 14:23:11 learning about heart failure Not available 10/19/2023 14:23:11 02/08/2024 [id number] pulse oximetry* Not available 02/09/2024 23:02:02 sleep apnea: car e instructions Not available 02/09/2024 23:02:02 Reason for Referral None Reported. Results Created Date Observation Date Name Description Value Unit Range Abnormal Flag Note LastModifiedBy Organization Detail LastModifiedTime 08/17/19 24 08/17/2023 pulse oxime try* Result 97 Not Available [facility] [address] [place] [address],Tarun A, [place], [address], 08/15/2023 14:00:34 02/08/20 24 02/08/2024 pulse oxime try* Result 97 Not Available [facility] [address] [place] [address],Tarun A, [place], [address], 02/06/2024 12:00:52 02/01/20 23 01/28/2023 MRI, cervi nia spine , w/o contr ast No observ ation record ed. [facility] [place] [address] [facility] [address], [place], [address], 01/31/2023 15:06:36 06/28/19 24 06/24/2023 US, echoc ardio gram No observ ation record ed. [facility] [address] [place], [place], [address], 08/17/2023 10:58:21 Result Notes None recorded. Problems Name Problem SNOMED Code Status Onset Date Resolution Date Notes Provider Name and Address Organization Details Recorded Time Crohn's disease 12509639 Active 2019 Garry Graves [address],[place], [address], [place] [facility] 0 11:51:44 Degeneration of lumbar intervertebral disc 93699341 Active 2020 Garry Graves DO [address],T[place] A, [place], [address], [place] [facility] 1 10:47:53 Osteoarthritis 642278415 Active 2021 Garry Graves [address],[place], [address], [facility] 2 15:14:41 Degenerative joint disease of hand 76699191 Active 2022 SAI PIERCE [address],[facility], [address], [facility] 3 15:28:27 COVID-19 133026315 Active 2023 Garry YvonneRory Graves, [address],[facility], [address], [facility] 4 13:31:54 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 Active 2023 Garry YvonneRory Graves, [address],[facility], [address], [facility] 4 11:11:39 Acute right otitis media 310048785 Active 2023 Garry YvonneRory Graves, [address],[facility], [address], [facility] 4 11:34:54 Psoriatic arthritis 115940989 Active 2023 aGrry Graves, [address],[facility], [address], [facility] 4 14:16:12 Morbid obesity 932127519 Active 2017 Susan burgess [facility] 8 08:45:56 Congestive heart failure 74600550 Active 2017 Susan burgess [facility] 8 08:45:59 Obstructive sleep apnea syndrome 18723768 Active 2017 Susan burgess [facility] 8 08:46:05 Hypertensive disorder 29486173 Active 2017 Susan burgess [facility] 8 08:46:10 Problem Notes None recorded. Procedures Surgical History Date Name Laterality Status Provider Name and Address Organization Details Recorded Time 01/09/20 19 Corticosteroid Injection completed Garry Graves, [address] [facility], [place], [address], [facility] 01/08/2019 10:11:59 Imaging Results Imaging Date Name Status LastModified by Organization Details LastModified Time 01/28/2023 MRI, cervical spine, w/o contrast completed [facility] [place] [address] [facility] [address], [place], [address], 01/31/2023 15:06:36 06/24/2023 US, echocardiogram completed [facility] [address] [place] [address] [address] [place], [place], [address], 08/17/2023 10:58:21 Procedure Notes None recorded. Medical Equipment None Reported. Allergies Allergen ID Allergen Name Allergen Category Reaction Reaction Severity Criticality Documentation Date Start Date Code Code System Note Provider Name and Address Organization Details Recorded Time 3160 meloxicam medicatio n diarrhea severe Not available 11/20/20182018 89225 RxNorm Garry Graves, DO [address] [facility],[place], [address], [facility] 17:32:39 4698 tramadol medicatio n dizziness moderate Not available 01/06/2021 22909 RxNorm SAI PIERCE [address] [place], [address], [facility] 11:05:59 Medications Name Sig Start Date Stop [...] with needle 1 mL 29 gauge x 7/16 USE TO INJECT METHOTREX ATE EVERY 7 [...] oximetry Systolic blood pressure Diastolic blood pressure Provider Name and Address Organization Details Last Updated DateTime 3 177.8 cm 46.8 kg/m2 463994. 11 g 66 /min 97 % 97 % 140 mm[Hg] 90 mm[Hg] Jeane Peralta [place] - [facility] 3 10:29:37 Date Recorded Body height Body mass index (BMI) Body weight Heart rate Oxygen saturation Oxygen saturation in Arterial blood by Pulse oximetry Systolic blood pressure Diastolic blood pressure Provider Name and Address Organization Details Last Updated DateTime 4 177.8 cm 45.3 kg/m2 305344. 19 g 67 /min 97 % 97 % 140 mm[Hg] 70 mm[Hg] Jeane Peralta [facility] 4 10:19:26 Date Recorded Body height Body mass index (BMI) Body weight Heart rate Oxygen saturation Oxygen saturation in Arterial blood by Pulse oximetry Systolic blood pressure Diastolic blood pressure Provider Name and Address Organization Details Last Updated DateTime 4 177.8 cm 44.9 kg/m2 951707. 41 g 55 /min 97 % 97 % 140 mm[Hg] 60 mm[Hg] Jeane Fabian [facility] Internal [facility] 4 10:44:51 Date Recorded Body height Body mass index (BMI) Body weight Heart rate Respiratory rate Oxygen saturation Oxygen saturation in Arterial blood by Pulse oximetry Systolic blood pressure Diastolic blood pressure Provider Name and Address Organization Details Last Updated DateTime 4 177.8 cm 44.9 kg/m2 256215. 41 g 52 /min 18 /min 99 % 99 % 132 mm[Hg] 66 mm[Hg] João Joyner [facility] 4 13:57:16 Date Recorded Body height Body mass index (BMI) Body weight Heart rate Oxygen saturation Oxygen saturation in Arterial blood by Pulse oximetry Systolic blood pressure Diastolic blood pressure Systolic blood pressure Diastolic blood pressure Provider Name and Address Organization Details Last Updated DateTime 4 177.8 cm 44.9 kg/m2 824042. 41 g 54 /min 97 % 97 % 140 mm[Hg] 70 mm[Hg] 132 mm[Hg] 70 mm[Hg] Jeane Fabian [facility] 4 16:35:02 Social History Question Answer Notes LastModified by Organizat ion Details LastModified Time Tobacco Smoking Status Former Smoker Not Available [facility] 03:36:24 What Was The Date Of Your Most Recent Tobacco Screening? 02/08/2024 Information not available 02/08/2024 Do You Or Have You Ever Used Any Other Forms Of Tobacco Or Nicotine? No [email or web address] Information not available 08/24/2021 Sex: Unknown Functional Status None recorded. Mental Status None recorded. Family History Nothing Reported. Medical History No medical history recorded. Immunizations Vaccine Type Date Status Note Provider Nam e and Address Organization Details Recorded Time pneumococcal polysaccharide PPV23 0 [facility]2020 11:26:53 COVID-19, mRNA, LNP-S, PF, 30 mcg/0.3 mL dose 1 completed [facility] 11/25/2020 11:27:04 COVID-19, mRNA, LNP-S, PF, 30 mcg/0.3 mL dose 1 completed Nathalie Balicki [facility] 11/25/2020 11:27:11 Hep B, unspecified formulation 0 completed Nathalie Balicki [facility] 11/25/2020 11:27:24 Hep B, unspecified formulation 0 completed Nathalie Balicki [facility] 11/25/2020 11:27:31 Hep B, unspecified formulation 1 completed Nathalie Balicki [facility] 11/25/2020 11:27:37 Hep A, unspecified formulation 0 completed Nathalie Balicki [facility] 11/25/2020 11:27:57 Hep A, unspecified formulation 0 completed [facility] 11/25/2020 11:28:04 Hep A, unspecified formulation 1 completed [facility] 11/25/2020 11:28:12 COVID-19, mRNA, LNP-S, PF, 30 mcg/0.3 mL dose 1 completed Susan Florez [facility] 01/06/2021 09:14:20 Influenza, split virus, quadrivalent, preservative 1 completed Susan burgess [facility] 08/24/2021 10:36:11 Tdap 9 completed Susan burgess [facility] 01/17/2019 08:11:56 Past Encounters Encounter ID Performer Location Encounter Start Date Encounter Closed Date Diagnosis/Indication Diagnosis SNOMED-CT Code Diagnosis ICD10 Code [id number] Garry Graves [facility] [address] [place] [address] 09/13/2017 10:56:44 09/13/2017 16:01:17 Hypertensive disorder 94102741 I10 Congestive heart failure 78776768 I50.9 Tenosynovi tis of wrist 411406313 M65.839 [id number] Garry Graves [facility] [address] [address] 01/25/2018 09:33:47 01/25/2018 10:14:56 Morbid obesity 080536400 E66.01 Hypertensive disorder 38 336062 I10 Congestive heart failure 77268525 I50.9 Obstructiv e sleep apnea syndrome 52712034 G47.33 Screening for cardiovascular system disease 567477106 Z13.6 Edema of l ower extremity 227942630 R60.0 [id number] Mary Jo Washington NP, [facility] [address] [place] [address] 05/23/2018 10:33:27 05/23/2018 16:49:35 Morbid obesity 620851812 E66.01 Acute bronchitis 7373577 2 J20.9 Hypertensive disorder 38 514271 I10 Obstructiv e sleep apnea syndrome 53754968 G47.33 [id number] Garry Graves [facility] [address] [place] [address] 08/02/2018 08:56:16 08/02/2018 12:49:34 Obstructive sleep apnea syndrome 55186245 G47.33 Hypertensive disorder 38 917335 I10 Congestive heart failure 40248506 I50.9 Morbid obesity 070919491 E66.01 Wrist joint pain 8631008 09 M25.539 [id number] Garry Graves [facility] [address] [place] [address], [place] [address] 11/20/2018 16:16:38 11/20/2018 17:38:10 Adverse reaction to drug 77733564 T50.905A Hypertensive disorder 38 426763 I10 Congestive heart failure 42450661 I50.9 [id number] IKE Sanchez [facility] [address] [place] [address], [place] [address] 12/27/2018 10:47:48 12/27/2018 13:47:31 Body mass index 40+ - severely obese 300733485 Z68.42 Hypertensive disorder 38 621921 I10 Obstructiv e sleep apnea syndrome 12957331 G47.33 Knee pain 42183942 M25.5 69 [id number] Garry Graves [facility] [address] [place] [address], [place] [address] 01/08/2019 09:49:46 01/08/2019 10:20:43 Osteoarthritis of knee 279012587 M17.9 [id number] Garry Graves [facility] [address] [place] [address], [place] [address] 02/07/2019 08:53:44 02/07/2019 10:48:03 Hypertensive disorder 42721392 I10 Congestive heart failure 28124605 I50.9 Chronic diarrhea 8810966 09 K52.9 Morbid obesity 813815559 E66.01 [id number] Garry Graves [facility] [address] [place] [address] 05/07/2019 10:23:47 05/07/2019 10:53:59 Hypertensive disorder 88422607 I10 Congestive heart failure 10995705 I50.9 Obstructiv e sleep apnea syndrome 15192794 G47.33 Diarrhea 26967156 R19.7 Crohn's disease 80582819 K50.90 [id number] Garry Graves [facility] [address] [place] [address] 08/17/2019 09:29:29 08/17/2019 12:16:51 Congestive heart failure 32343781 I50.9 Hypertensive disorder 38 876168 I10 Obstructiv e sleep apnea syndrome 25139560 G47.33 Microcytic anemia 822209 007 D50.9 [id number] Garry Graves [facility] [address] [place] [address], [place] [address] 12/07/2019 08:58:03 12/07/2019 11:52:09 Congestive heart failure 17437981 I50.9 Crohn's disease 70535865 K50.90 Hypertensive disorder 38 405800 I10 Obstructiv e sleep apnea syndrome 44053308 G47.33 [id number] Garry Graves [facility] [address] [place] [address], [place] [address] 04/28/2020 08:45:16 04/28/2020 10:57:40 Congestive heart failure 71460354 I50.9 Hypertensive disorder 38 122738 I10 Obstructiv e sleep apnea syndrome 43111808 G47.33 Morbid obesity 731042505 E66.01 Crohn's disease 74824061 K50.90 [id number] Garry Graves [facility] [address] [place] [address], [place] [address] 11/28/2020 11:06:02 11/28/2020 12:11:18 Hypertensive disorder 97370953 I10 Congestive heart failure 20422755 I50.9 Obstructiv e sleep apnea syndrome 47589981 G47.33 Hepatitis C screening 41 6682410 Z11.59 Morbid obesity 670525186 E66.01 Crohn's disease 30998063 K50.90 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 4055788396 106 K50.018 [id number] SAI PIERCE [facility] [address] [place] [address], [place] [address] 12/10/2020 09:52:05 12/10/2020 11:56:49 Neck pain 95510926 M54.2 Torticollis 98178778 M43 .6 [id number] SAI PIERCE [facility] [address] [place] [address], [place] [address] 01/06/2021 09:05:10 01/06/2021 12:01:51 Epidermoid cyst of skin 887001923 L72.3 Degenerati on of cervical intervertebral disc 53579058 M50.30 [id number] SAI PIERCE [facility] [address] [place] [address], [place] [address] 03/16/2021 11:22:42 03/16/2021 12:41:23 Low back pain 881738166 M54.59 Abnormal gait 54401978 R 26.9 Bursitis o f olecranon of right elbow 0923589000 61733 M70.21 [id number] Garry Graves [facility] [address] [place] [address], [place] [address] 04/20/2021 10:25:43 04/20/2021 12:42:30 Hypertensive disorder 83425647 I10 Congestive heart failure 03823842 I50.9 Obstructiv e sleep apnea syndrome 12476230 G47.33 Crohn's disease 52151069 K50.90 Degenerati on of lumbar intervertebral disc 60900250 M51.36 Hearing loss 91228522 H9 0.3 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 5521013200 105 M48.02 [id number] Garry Graves [facility] [address] [place] [address], [place] [address] 08/24/2021 10:25:17 08/24/2021 11:40:12 Hypertensive disorder 90682071 I10 Congestive heart failure 52661364 I50.9 Morbid obesity 876153473 E66.01 Crohn's disease 69151855 K50.90 [id number] Garry Graves [facility] [address] [place] [address], [place] [address] 12/11/2021 14:47:03 12/11/2021 16:18:04 Hypertensive disorder 57776168 I10 Depression screening 171 330757 Z13.31 Crohn's disease 00040293 K50.90 Congestive heart failure 31153558 I50.9 Osteoarthritis 043296299 M19.90 [id number] Garry Graves [facility] [address] [place] [address] 04/30/2022 10:54:24 04/30/2022 15:17:59 Congestive heart failure 40135296 I50.9 Hypertensive disorder 38 915637 I10 Osteoarthritis 090026769 M19.90 Obstructiv e sleep apnea syndrome 32008578 G47.33 [id number] Garry Graves [facility] [address] [place] [address] 11/26/2022 10:17:44 11/26/2022 11:32:27 Congestive heart failure 89909789 I50.9 Hypertensive disorder 38 310335 I10 Morbid obesity 282034030 E66.01 Crohn's disease 12241801 K50.90 [id number] CARMELINA URBANO [facility] [address] [place] [address], [place] [address] 06/06/2023 10:12:51 06/06/2023 10:41:44 Morbid obesity 140605865 E66.01 Hypertensive disorder 38 053667 I10 Obstructiv e sleep apnea syndrome 09745414 G47.33 Congestive heart failure 72976443 I50.89 Pre-surger y evaluation 630123731 Z01.818 [id number] Garry Graves [facility] [address] [place] [address] 08/17/2023 10:37:50 08/17/2023 11:36:58 Crohn's disease 41513032 K50.90 Congestive heart failure 92635182 I50.89 Hypertensive disorder 38 397402 I10 Morbid obesity 763004228 E66.01 Chronic to phaceous gout 85188738 M1A.9XX1 Acute righ t otitis media 679078391 H66.91 [id number] Garry Graves [facility] [address] [place] [address], [place] [address] 10/19/2023 13:46:51 10/19/2023 14:34:25 Acute right otitis media 447025327 H66.91 Depression screening 171 020889 Z13.31 Hypertensive disorder 38 973364 I10 Degenerati on of lumbar intervertebral disc 18996398 M51.36 Congestive heart failure 68781013 I50.89 Morbid obesity 337565137 E66.01 Psoriatic arthritis 1563 21975 L40.50 Crohn's disease 57773785 K50.90 [id number] DO [facility] [address] [place] [address] 02/08/2024 16:03:32 02/10/2024 08:57:21 Congestive heart failure 27169201 I50.89 Psoriatic arthritis 1563 45438 L40.50 Obstructiv e sleep apnea syndrome 89531178 G47.33 Health Concerns Section Related Observation LastModified by Organization Detai ls LastModified Time None Recorded Concern Status LastModified by Organization Details LastModified Time None Recorded Advance Directives Directive None Recorded Payers Encounter Date Sequence Insurance Name Policy Number Policy Damon Covered Member ID Damon Member ID Guarantor Name 11/26/2022 2 [place] Hector Hernández Isaiah [id number] Hector Isaiah 11/26/2022 1 [place] [facility] Hector Hernández Isaiah [id number] Hector Isaiah 06/06/2023 2 [place] Hector Hernández Isaiah [id number] Hector Isaiah 06/06/2023 1 [place] [employer] Hector Hernández Isaiah [id number] Hector Isaiah 08/17/2023 2 [place] Hector Hernández Isaiah [id number] Hector Isaiah 08/17/2023 1 [place] Hector Hernández Isaiah [id number] Hector Isaiah 10/19/2023 2 [place] Hector Hernández Isaiah [id number] Hector Isaiah 10/19/2023 1 [place] Hector Hernández Isaiah [id number] Hector Isaiah 02/08/2024 2 [place] Hector Hernández Isaiah [id number] Hector Isaiah 02/08/2024 1 [place] Hector Hernández Isaiah [id number] Hector Isaiah Notes Date Note Type Note Provider Name and Address Organization Details Recorded Time 3 text/html here for ambreen overall is doing okrelates that he is not having cpno sob unless exert uses cpapbowels are goodbladder okarthritis is what is kicking his ass and state s he is quite frustrated with this at times [facility] Graves DO [address] [facility], [place], [address], [facility] 11/26/2022 10:52:15 4 text/html Pre-OpReported bypatient.Surgery to be Performed:carpal tunnel surgery (bilaterally) and both elbows (biopsy) with Dr. Colin at [facility] Severity:severe Risk Factorsno cognitive impairment; no functional impairment; no malnutrition; no frailty; able to climb a flight of stairs (exercise capacity>4 METS); non-smoker; no alcohol misuse; no illicit drug use; no chronic cardiopulmonary condition;obstructive sleep apnea;chronic cardiopulmonary condition(CHF, COPD);obese(morbid obesity) Anesthesia hx:no hx of anesthesia complications; no allergy to anesthetic agents; no family history of anesthesia complications Functional Ability:able to walk up stairs; able to perform heavy work around the house; no difficulty walking up hills; able to walk 4 mph Post-Op Support:adequate assistance at home () cleared by retail leasing agent and tenon machine operator SAI PIERCE [address] [place], [place] [address] Yvonne, [place], [address], [facility] 06/06/2023 10:36:13 4 text/html has had long medical problems over past couple months had echo and heart cathwas noted to have a bradycardic episode during the procedure and he was monitoredwas diagnosed with tophacious 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 had carpal tunnel surgery on the left and is fixedfollowed by rheum as he was taken off MTx by hospitalgoing to rheum to see if mtx should be restarted Garry Graves DO [address] [facility], [place], [address], [facility] Internal [facility] 08/17/2023 11:35:26 4 text/html Care Management - HypertensionReported bypatient.Self Care:not under emotional stress Severity:symptoms are improving; does not interfere with daily activities Associated Symptoms:no dizziness; no lightheadedness; no chest pain; no shortness of breath; no palpitations; no edema; no calf muscle cramps; no blurred vision; no confusion; no headaches; no fatigue doing better and ear feels goodthe psoriatic arthritis is still a major issuecrohns is well controlled no bleeding Garry Graves DO [address], [place], [address], [facility] 10/19/2023 14:23:32 4 text/html here for rechk and is doing jessica MTX and recent lab shows ongoing anemia creat is still ok overallarhtritis is bothering himcrohns is quiet ]'gout has been the issue uric acid is 7.2 aGrry Graves DO [address] [facility] [address], [place], [address], [facility] 02/09/2024 23:02:06
== END ==
LOC: HO.CARD 10:51
PROVIDERS: PCP Internal Medicine; Visit Provider Internal Medicine
DX: I48.19 Other persistent atrial fibrillation (principal)
CPT/HCPCS: 93242

== ENCOUNTER → 2024-04-17 10:58 | Outpatient (BNV) | payer MEDICARE, MEDICAID, SELFPAY | PROVIDERS: PCP Internal Medicine; Visit Provider Internal Medicine | DX: I48.91 Unspecified atrial fibrillation (principal) | CPT/HCPCS: 93244 ==

== ENCOUNTER 2024-04-20 09:17 | Outpatient (REF) | payer MEDICARE, MEDICAID, SELFPAY ==
--- OUTSIDE RECORDS SUMMARY | 2024-04-25 06:52 | XMS_ITS ---
Author Organization [facility] Address [address] [place] [address] Care Team Providers Care Er Nurse Name Role Phone Garry Graves MD Primary Care Provider Daisy George Unavailable [phone] Solomon Ventura Unavailable [phone] Allergies Allergen (clinical drug ingredient) Drug/Non Drug [...] Problem Status W/U Status Risk Notes Problem 47006987 Venous insufficiency (I87.2) Active confirmed Vital Signs Height 5 ft 11 in in 08/25/2023 Weight 334 lbs 08/25/2023 BMI 46.58 kg/m2 08/25/2023 Encounters Encounter Location Date Provider Diagnosis [facility] [address] [place] [address] 08/25/2023 Solomon Ventura Plantar fascial fibromatosis M72.2 [...] Provider Name:Daisy collado, 08/30/2024 11:15:00 AM, [address] [place], [address], Progress Notes * Hector COLON KDOB:[birth year] (68 yo M)Acc No.[id number]:08/25/2023 Progress Note Patient:?Hector Colon Edgar Provider:?Solomon Ventura DPM :1955???Age:68 Y???Sex:Male Narciso e:08/25/2023 Address:[address] [place], [place] [address] Pcp:Garry Graves MD Subjective: * Chief Complaints: * ???Last Visit PCP 08/17/23 * HPI: ???Heel pain:?Nature:?aching.?Location:?B/L, proximal plantar aspect of heel--left more severe than right.?Duration:?several years .?Onset/Cause:?unknown.?Course:?improved with use of upright walker over past sev months.?Aggrevated:?standing, walking.?Treatments:?rest, change in shoes, innersoles, corticosteriod injection; custom orthoses and aleve; rest helps the most; methotrexate for tx of arthritis; Dr. Balderrama[place].?Skin problems:?Nature:?dryness.?Location:?Heel/Rearfoot, B/L .?Duration:?several weeks.?Onset/Cause:?unknown.?Treatments:?medication ( Eucerin).?Severity/Quality:?moderate.?Foot [...] Exercise. ?Marital status: . 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 * Medications:?TakingAllopurin ol 100 MG Tablet [...] DPM Date:? 024 Generated for Capo raman/Davidson/Agathaitting on:?04/25/2024 06:52 AM EST History and Physical Notes * HPI [...] most; methotrexate for tx of arthritis; Dr. Balderrama--[facility] [place]um Skin problems Nature: dryness Location: Heel/Rearfoot, [...]
--- OUTSIDE RECORDS SUMMARY | 2024-04-25 06:52 | XMS_ITS ---
Author Organization [facility] Address [address] [place] [address] Care Team Providers Care Hospital Nursing Assistant Name Role Phone Garry Graves MD Primary Care Provider Daisy George Unavailable [phone] Solomon Ventura [phone] REASON FOR VISIT Rx Medications Medication SIG (Take, Route, Fr equency, Duration) Notes Start Date End Date Status Custom Orthotics as directed 09/29/2023 Active Encounters Encounter Location Date Provider Diagnosis [address] [address] 09/28/2023 Solomon Ventura Plan Of Treatment Medication Medication Name Sig Start Date Stop Date Notes Custom Orthotics as directed 09/29/2023 Next Appt Details Provider Name:Daisy collado, 08/30/2024 11:15:00 AM, [address] [facility], [place], [address], Progress Notes * Hector COLON KDOB:[birth year] (68 yo M)Acc No.[id number]:09/28/2023 Patient:?Hector Colon :1955???Age:68 Y???Sex:Male Address:[address], [place], [address] * Refills? Start Custom Orthotics, as directed * true * Date:? Generated for Printi ng/Faxing/eTransmitting on:?04/25/2024 06:52 AM EST
--- OUTSIDE RECORDS SUMMARY | 2024-04-25 06:53 | XMS_ITS | Patient Health Record ---
Author Organization [facility] [place] Address [address] [place] [address] Care Team Providers Care Project Management Professor Name Role Phone Star SEGURA, Garry Primary Care Provider Daisy George Unavailable [phone] Lorenzo Solomon Unavailable [phone] Allergies Allergen (clinical drug ingredient) Drug/Non Drug [...] primary osteoarthritis of the ankle and/or foot (920217735) Primary osteoarthritis, left ankle and foot (M19.072) Active confirmed Problem Plantar fascial fibromatosis (15487930) Plantar 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) Active confirmed Problem Acquired hammer toe of right foot (6930636266926502) Other hammer toe(s) (acquired), right foot (M20.41) Active confirmed Problem Acquired hammer toe of left foot (1969926089554206) Other hammer toe(s) (acquired), left foot (M20.42) Active confirmed Problem 43773001 Venous insufficiency (I87.2) Active confirmed Vital Signs Height 5 ft 11 in in 08/25/2023 Weight 334 lbs 08/25/2023 BMI 46.58 kg/m2 08/25/2023 Encounters Encounter Location Date Provider Diagnosis [address] [address] 08/25/2023 Solomon Ventura Plantar fascial fibromatosis M72.2 [...] Localized edema R60.0 and Venous insufficiency I87.2 [facility] [address] [address] 09/28/2023 Solomon Ventura Assessments Encounter Date Diagnosis [...] Details Provider Name:Daisy collado, 08/30/2024 11:15:00 AM, [address] [place] [address], [address], Insurance Providers Payer Name Payer Address Payer Phone Subscriber Number Group Number Insured Name Patient Relationship to Insured Coverage Start Date Coverage End Date Medicare National Govt Svcs Inc [address] [place] [address] [id number] Hector Colon Self - patient is the insured Medical (General) History Medical History History ICD Code transfusions diverticulosis chicken pox back, hip, knee pain chron's Surgical History Surgery Date(Month/Year) colon/intestinal surgery heart surgery unspecified kymberly
== END 2024-04-20 09:18 | disposition home or self-care (01) ==
LOC: HO.HAP 09:17
PROVIDERS: Visit Provider Internal Medicine
DX: Z46.1 Encounter for fitting and adjustment of hearing aid (principal); H90.3 Sensorineural hearing loss, bilateral
CPT/HCPCS: 92593

== ENCOUNTER 2024-04-25 11:38 | Outpatient (AMB) | payer MEDICARE, MEDICAID, SELFPAY ==
--- NOTE | 2024-04-25 11:49 | MHC.OFFVIS ---
Vital Signs 04/25/24 11:53 Height 5 ft 11 in Weight 320 lb 15.889 oz BMI 44.8 BP 124/54 L Blood Pressure Location Rt brachial Position Sitting Pulse 71 Pulse Source Pulse Oximeter Pulse Oximetry (%) 98 Oxygen Delivery Method Room Air Intake Visit Reasons: Crohn's arthritis Intake Note: Patient presents for Crohn's Arthritis. Allergies tramadol Allergy (Mild, Verified 04/25/24 11:52) Dizziness Medication List - Last Reconciled 04/25/24 by Viral Balderrama MD acetaminophen ER (Tylenol Arthritis Pain) 1,300 mg PO Q8H allopurinol 100 mg PO DAILY allopurinol 300 mg PO DAILY amlodipine 10 mg PO QAM apixaban (Eliquis) 5 mg PO BID ferrous sulfate 324 mg PO DAILY folic acid 1 mg PO DAILY furosemide 80 mg PO QAM insulin syringe-needle U-100 (BD Insulin Syringe) Use once weekly with methotrexate losartan 100 mg PO QAM methotrexate sodium 15 mg (0.6 mL) subcut QWEEK multivitamin 1 tab PO DAILY pantoprazole 40 mg PO QAM hqfyzcmx-ckwr-kyaeb-oreg-capry 100 mg-150 mg- 50 mg-150 mg 1 cap PO DAILY vedolizumab (Entyvio) 300 mg IV Q8W HPI Comments Details: 68 yoM with a PMH of Crohns disease, IBD related arthritis and gout who presents for follow-up. On subcu methotrexate 20 mg weekly, folic acid 1 mg daily, allopurinol 400 mg daily. He states that he is doing reasonably well overall. Intermittent joint aches and pains. Per Dr. Manuel: Presents for follow-up of initial testing. At last visit, patient received a prednisone taper which he states significantly helped his joint pain. He has now completed the prednisone and some of his joint pain has returned. From last visit: Patient is currently on Entyvio for his Crohns. He was previously treated with Humira however did not respond to therapy in terms of his bowel disease or his joint pain. He reports a few years of joint pain mostly located in his hands, feet, and neck. He has swelling located in his MCPs and PIPs as well as nodules by both elbows. Has stiffness in his hands and is unable to make fists. States that his feet feel like he is walking on glass. He was given a prednisone taper by his PCP which helped immensely with his pain and swelling. He was also given Sulfasalazine by Dr Taylor in GI and took it for a couple of weeks but states that it did not help his joint pain. Unable to take NSAIDs as he is on Eliquis for Afib. No family history of RA, SLE, Crohns, Psoriasis or Psoriatic Arthritis. [facility] Medical History COVID-19 Claustrophobia Arthritis Atrial septal defect Atrial fibrillation Gouty tophi of joint Restrictive lung disease Cervical spondylosis Epidermal cyst Essential hypertension Chronic right heart failure Crohn's disease TIFFANY on CPAP Morbid obesity Surgical History Hx of carpal tunnel repair History of colon resection History of excision of epidermal inclusion cyst (~03/27/21) History of esophagogastroduodenoscopy (EGD) Status post surgical atrial septal defect closure History of colonoscopy Family History Father Hx of Crohn's disease Cancer Mother Hx of type 2 diabetes mellitus Social History Are you a primary field care advocate to a significant other at home: No Do you presently have visiting nurse or other home services: No Alcohol intake: never Comment: counts correct Patient Tobacco Use Status: Former Tobacco user Tobacco use type: Cigarette Years Smoked: 10 +/- Current occupational status: retired Current occupation: right hand dominant Review of Systems Musc Denies joint swelling and Reports stiffness Neuro Reports Sensory deficit (Neuro) Physical Exam Vital Signs: Last Vital Signs Pulse 71 04/25/24 11:53 BP 124/54 L 04/25/24 11:53 Pulse Ox 98 04/25/24 11:53 Oxygen Delivery Method Room Air 04/25/24 11:53 BMI result Body Mass Index 44.8 Const General: cooperative, healthy appearing and comfortable Nutritional Appearance: obese morbidly obese Orientation/consciousness: patient oriented x3 Limitations: no limitations HEENT Head: Yes normocephalic and Yes atraumatic Resp Effort & Inspection: normal respiratory effort and able to speak in complete sentences Cardio Rhythm: abnormal rhythm Skin General skin exam: no rashes or lesions noted Neuro General: patient oriented x3 Sensory Exam: Sensory deficit (Neuro) Extrem Other: Bilateral diffuse MCP puffiness but no tenderness Multiple puffy fingers but no tenderness Negative MCP squeeze test bilaterally Bilateral reduced green hide inspector strength Negative Tinel sign Large gouty tophi distal to both elbows. Smaller on the left (some was surgically excised) Assessment & Plan Assessment & Plan (1) Arthritis associated with inflammatory bowel disease: Comment: Failed p.o. methotrexate. Doing well on subcu methotrexate for Crohn's failed Humira, did well on Entyvio Code(s): K63.9 - Disease of intestine, unspecified; M07.60 - Enteropathic arthropathies, unspecified site Category: Medical Plan: This is a 68-year-old male with IBD related arthritis returns for follow-up. Doing well on SQ methotrexate 20 mg weekly plus folic acid 1 mg daily Reduce methotrexate to 15 mg weekly due to renal insufficiency Continue folic acid 1 mg daily Labs before next visit in 4 months (2) Gouty tophi of joint: Code(s): M1A.9XX1 - Chronic gout, unspecified, with tophus (tophi) Category: Medical Plan: No history of gout flare-ups or kidney stones however has biopsy proven gouty tophi distal to both elbows. Mother had gout. Initial Uric acid level 12.9. Patient now on allopurinol 400 mg daily. Well-tolerated. Uric acid improved to 5.9 mg/dL. I think his target uric acid level should be less than 5 due to tophi. Increase allopurinol to 500 mg daily. Check uric acid level before next visit (3) group home methotrexate user: Code(s): Z79.631 - group home (current) use of antimetabolite agent Category: Medical Plan: Monitor safety labs (4) CKD (chronic kidney disease): Code(s): N18.9 - Chronic kidney disease, unspecified Category: Medical Qualifiers: Chronic kidney disease stage 3 subtype: stage 3a (GFR 45-59) Chronic kidney disease stage: stage 3 (moderate) Qualified Code(s): N18.31 - Chronic kidney disease, stage 3a Plan: Referred to superintendent landfill operations Plan I spent 25 minutes reviewing patient's chart, evaluating patient, ordering diagnostic workup, counseling patient & his and documenting in the chart Orders: Orders Complete Blood Count Auto Diff 4 Months Z79.631 - group home (current) use of antimetabolite agent C Reactive Protein 4 Months Z79.631 - group home (current) use of antimetabolite agent Erythrocyte Sedimentation Rate 4 Months Z79.631 - termite control servicer (current) use of antimetabolite agent Uric Acid 4 Months Z79.631 - group home (current) use of antimetabolite agent Comprehensive Met. Panel 4 Months Z79.631 - termite control servicer (current) use of antimetabolite agent Referrals Nephrology Referral N18.9 - Chronic kidney disease, unspecified Medications: Changed From methotrexate sodium 20 mg (0.8 mL) subcut QWEEK 12 mL 2RF To methotrexate sodium 15 mg (0.6 mL) subcut QWEEK 12 mL 2RF Coding Level of Care Code Est Pt Level 4 (22971) Complex EM visit Add On G2211 Diagnoses Arthritis associated with inflammatory bowel disease K63.9; M07.60 Gouty tophi of joint M1A.9XX1 group home methotrexate user Z79.631 Stage 3a chronic kidney disease N18.31 Chronic kidney disease stage 3 subtype: stage 3a (GFR 45-59) Chronic kidney disease stage: stage 3 (moderate)
[2024-04-25 11:53] VITALS: BP 124/54; PULSE 71; O2SAT 98; BMI 44.8
--- OUTSIDE RECORDS SUMMARY | 2024-04-26 01:45 | XMS_ITS ---
Author Organization [facility] Address [address] [place] [address] Care Team Providers Care Trapper Animal Name Role Phone Garry Graves MD Primary Care Provider Daisy George Unavailable [phone] Solomon Ventura Unavailable [phone] Allergies Allergen (clinical drug ingredient) Drug/Non Drug [...] Problem Status W/U Status Risk Notes Problem 19400646 Venous insufficiency (I87.2) Active confirmed Vital Signs Height 5 ft 11 in in 08/25/2023 Weight 334 lbs 08/25/2023 BMI 46.58 kg/m2 08/25/2023 Encounters Encounter Location Date Provider Diagnosis [facility] [address] [place] [address] 08/25/2023 Solomon Ventura Plantar fascial fibromatosis M72.2 [...] Provider Name:Daisy collado, 08/30/2024 11:15:00 AM, [address] [place], [address], Progress Notes * Hector COLON KDOB:[birth year] (68 yo M)Acc No.[id number]:08/25/2023 Progress Note Patient:?Hector Colon Edgar Provider:?Solomon Ventura DPM :1955???Age:68 Y???Sex:Male Narciso e:08/25/2023 Address:[address] [place], [place] [address] Pcp:Garry Graves MD Subjective: * Chief Complaints: * ???Last Visit PCP 08/17/23 * HPI: ???Heel pain:?Nature:?aching.?Location:?B/L, proximal plantar aspect of heel--left more severe than right.?Duration:?several years .?Onset/Cause:?unknown.?Course:?improved with use of upright walker over past sev months.?Aggrevated:?standing, walking.?Treatments:?rest, change in shoes, innersoles, corticosteriod injection; custom orthoses and aleve; rest helps the most; methotrexate for tx of arthritis; Dr. Balderrama--[facility] [place]um.?Skin problems:?Nature:?dryness.?Location:?Heel/Rearfoot, B/L .?Duration:?several weeks.?Onset/Cause:?unknown.?Treatments:?medication ( Eucerin).?Severity/Quality:?moderate.?Foot [...] Exercise. ?Marital status: . 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 * Medications:?TakingAllopurin ol 100 MG Tablet [...] DPM Date:? 024 Generated for Capo raman/Davidson/Agathaitting on:?04/26/2024 01:45 AM EST History and Physical Notes * [...] most; methotrexate for tx of arthritis; Dr. Balderrama--[facility] [place] rheum Skin problems Nature: dryness Location: Heel/Rearfoot, [...]
--- OUTSIDE RECORDS SUMMARY | 2024-04-26 01:45 | XMS_ITS ---
Author Organization [facility] Address [address] [place] [address] Care Team Providers Care Line Server Name Role Phone Garry Graves MD Primary Care Provider Daisy George Unavailable [phone] Solomon Ventura [phone] REASON FOR VISIT Rx Medications Medication SIG (Take, Route, Fr equency, Duration) Notes Start Date End Date Status Custom Orthotics as directed 09/29/2023 Active Encounters Encounter Location Date Provider Diagnosis [address] [address] 09/28/2023 Solomon Ventura Plan Of Treatment Medication Medication Name Sig Start Date Stop Date Notes Custom Orthotics as directed 09/29/2023 Next Appt Details Provider Name:Daisy collado, 08/30/2024 11:15:00 AM, [address] [facility], [place], [address], Progress Notes * Hector COLON KDOB:[birth year] (68 yo M)Acc No.[id number]:09/28/2023 Patient:?Isaiah Hector Hernández :1955???Age:68 Y???Sex:Male Address:[address], [place], [address] * Refills? Start Custom Orthotics, as directed * true * Date:? Generated for Printi ng/Faxing/eTransmitting on:?04/26/2024 01:45 AM EST
--- OUTSIDE RECORDS SUMMARY | 2024-04-26 01:46 | XMS_ITS | Patient Health Record ---
Author Organization [facility] [place] Address [address] [place] [address] Care Team Providers Care Activities Coordinator Name Role Phone Star SEGURA, Garry Primary Care Provider Daisy George Unavailable [phone] Lorenzo Solomon Unavailable [phone] Allergies Allergen (clinical drug ingredient) Drug/Non Drug [...] primary osteoarthritis of the ankle and/or foot (277010354) Primary osteoarthritis, left ankle and foot (M19.072) Active confirmed Problem Plantar fascial fibromatosis (21362686) Plantar 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) Active confirmed Problem Acquired hammer toe of right foot (0217483176462372) Other hammer toe(s) (acquired), right foot (M20.41) Active confirmed Problem Acquired hammer toe of left foot (5679375766795920) Other hammer toe(s) (acquired), left foot (M20.42) Active confirmed Problem 12720971 Venous insufficiency (I87.2) Active confirmed Vital Signs Height 5 ft 11 in in 08/25/2023 Weight 334 lbs 08/25/2023 BMI 46.58 kg/m2 08/25/2023 Encounters Encounter Location Date Provider Diagnosis [address] [address] 08/25/2023 Solomon Ventura Plantar fascial fibromatosis M72.2 [...] Localized edema R60.0 and Venous insufficiency I87.2 [facility] [address] [address] 09/28/2023 Solomon Ventura Assessments Encounter Date Diagnosis [...] Details Provider Name:Daisy collado, 08/30/2024 11:15:00 AM, [address] [place] [address], [address], Insurance Providers Payer Name Payer Address Payer Phone Subscriber Number Group Number Insured Name Patient Relationship to Insured Coverage Start Date Coverage End Date Medicare National Govt Svcs Inc [address] [place] [address] [id number] Hector Colon Self - patient is the insured Medical (General) History Medical History History ICD Code transfusions diverticulosis chicken pox back, hip, knee pain chron's Surgical History Surgery Date(Month/Year) colon/intestinal surgery heart surgery unspecified kymberly
--- OUTSIDE RECORDS SUMMARY | 2024-04-26 01:46 | XMS_ITS | Data Portability ---
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 [email or web address] Not available 02/08/2024 16:33:32 Plan of Treatment Reminders Order Date Submit Date Provider Last Modified By Organization Details Last Modified Time Details Appointments None recorded. Lab vitamin D, 25-hydroxy , total, serum 2022 023 [facility] [address] [place] [address], [address], 3 12:56:38 vitamin B12, serum 2022 023 NELA [facility], [address] [place] [address], [address], 3 12:56:38 vitamin B1 (thiamine) , serum 2022 023 [facility]ata [facility], [address] [place] [address], [address], 3 11:16:12 folate, serum 2022 023 [facility], [address] [place], [address], 3 12:56:38 CMP, serum or plasma 2022 023 ATHENAFAX [facility], [address] [place], [address], 10:55:22 pro BNP (pro B-type natriureti c peptide), serum or plasma 2022 023 NELA [facility], [address] [place], [address], 12:56:38 CBC 2022 023 ATHENAX [facility], [address] [place], [address], 10:55:21 Referral None recorded. Procedures None recorded. Surgeries None recorded. Imaging None recorded. Medication Orders amoxicilli n 875 mg-potassi um clavulanat e 125 mg tablet 2023 024 [address] [id number], [address] [place], [place], [id number], 13:55:23 Patient TargetsNo targets recorded. Patient Instructions Encounter Date Encounter Id Patient Instructions Last Modified By Organization Details Last Modified Time 08/17/2023 [id number] pulse oximetry* Not available 08/17/2023 11:13:27 10/19/2023 [id number] When You Want to Lose Weight: Care Instructions Not available 10/19/2023 14:23:11 crohn's disease: care instructions Not available 10/19/2023 14:23:11 heart failure: care instructions Not available 10/19/2023 14:23:11 learning about heart failure Not available 10/19/2023 14:23:11 02/08/2024 [id number] pulse oximetry* Not available 02/09/2024 23:02:02 sleep apnea: car e instructions Not available 02/09/2024 23:02:02 Reason for Referral None Reported. Results Created Date Observation Date Name Description Value Unit Range Abnormal Flag Note LastModifiedBy Organization Detail LastModifiedTime 08/17/19 24 08/17/2023 pulse oxime try* Result 97 Not Available [facility] [address] [place] [address],[place], [place], [address], 08/15/2023 14:00:34 02/08/20 24 02/08/2024 pulse oxime try* Result 97 Not Available [facility] [address] [place] [address],[facility] A, [place], [address], 02/06/2024 12:00:52 02/01/20 23 01/28/2023 MRI, cervi nia spine , w/o contr ast No observ ation record ed. [facility] [address] [facility] [address], [place], [address], 01/31/2023 15:06:36 06/28/19 24 06/24/2023 US, echoc ardio gram No observ ation record ed. [facility] [address], [place], [address], 08/17/2023 10:58:21 Result Notes None recorded. Problems Name Problem SNOMED Code Status Onset Date Resolution Date Notes Provider Name and Address Organization Details Recorded Time Crohn's disease 94094000 Active 2019 Garry Graves [address] [facility],[place], [address], [place] [facility] 0 11:51:44 Degeneration of lumbar intervertebral disc 29905173 Active 2020 Garry Graves [address],[place], [place], [address], [place] [facility] 1 10:47:53 Osteoarthritis 497850021 Active 2021 Garry A. Bigda, DO [address],[place], [place], [address], [facility] 2 15:14:41 Degenerative joint disease of hand 32043041 Active 2022 SAI PIERCE [address],[place], [place], [address], [facility] 3 15:28:27 COVID-19 169472501 Active 2023 Garry Graves, DO [address],[place] [address], [place], [address], [facility] 4 13:31:54 Chronic tophaceous gout 74173035 Active 2023 Garry Graves, DO [address],[place], [place], [address], [facility] 4 11:11:39 Acute right otitis media 861551129 Active 2023 Garry Graves, DO [address],[place], [place], [address], [facility] 4 11:34:54 Psoriatic arthritis 509507062 Active 2023 Garry Reich Maribelalexander, DO [address],[place], [place], [address], [facility] 4 14:16:12 Morbid obesity 779028233 Active 2017 Susan burgess [facility] 8 08:45:56 Congestive heart failure 00340942 Active 2017 Susan burgess [facility] 8 08:45:59 Obstructive sleep apnea syndrome 97079087 Active 2017 Susan burgess [facility] 8 08:46:05 Hypertensive disorder 71903144 Active 2017 Susan burgess [facility] 8 08:46:10 Problem Notes None recorded. Procedures Surgical History Date Name Laterality Status Provider Name and Address Organization Details Recorded Time 01/09/20 19 Corticosteroid Injection completed Garry Grvaes, [address] [facility], [place], [address], [facility] 01/08/2019 10:11:59 Imaging Results Imaging Date Name Status LastModified by Organization Details LastModified Time 01/28/2023 MRI, cervical spine, w/o contrast completed [facility] [address] [facility] [address], [place], [address], 01/31/2023 15:06:36 06/24/2023 US, echocardiogram completed [facility] [address] [place] [address] [address], [place], [address], 08/17/2023 10:58:21 Procedure Notes None recorded. Medical Equipment None Reported. Allergies Allergen ID Allergen Name Allergen Category Reaction Reaction Severity Criticality Documentation Date Start Date Code Code System Note Provider Name and Address Organization Details Recorded Time 3160 meloxicam medicatio n diarrhea severe Not available 11/20/20182018 74467 RxNorm Garry Graves, DO [address] [facility],[place], [address], [facility] 17:32:39 4698 tramadol medicatio n dizziness moderate Not available 01/06/2021 84057 RxNorm SAI PIERCE [address] [place], [address], [facility] 11:05:59 Medications Name Sig Start [...] Updated DateTime 3 177.8 cm 46.8 kg/m2 671403. 11 g 66 /min 97 % 97 % 140 mm[Hg] 90 mm[Hg] Jeane Fabian [facility] 3 10:29:37 Date Recorded Body height Body mass index (BMI) Body weight Heart rate Oxygen saturation Oxygen saturation in Arterial blood by Pulse oximetry Systolic blood pressure Diastolic blood pressure Provider Name and Address Organization Details Last Updated DateTime 4 177.8 cm 45.3 kg/m2 141830. 19 g 67 /min 97 % 97 % 140 mm[Hg] 70 mm[Hg] Jeane Peralta [facility] 4 10:19:26 Date Recorded Body height Body mass index (BMI) Body weight Heart rate Oxygen saturation Oxygen saturation in Arterial blood by Pulse oximetry Systolic blood pressure Diastolic blood pressure Provider Name and Address Organization Details Last Updated DateTime 4 177.8 cm 44.9 kg/m2 402446. 41 g 55 /min 97 % 97 % 140 mm[Hg] 60 mm[Hg] Jeane Peralta [facility] 4 10:44:51 Date Recorded Body height Body mass index (BMI) Body weight Heart rate Respiratory rate Oxygen saturation Oxygen saturation in Arterial blood by Pulse oximetry Systolic blood pressure Diastolic blood pressure Provider Name and Address Organization Details Last Updated DateTime 4 177.8 cm 44.9 kg/m2 845760. 41 g 52 /min 18 /min 99 % 99 % 132 mm[Hg] 66 mm[Hg] João Joyner [facility] Internal [facility] 4 13:57:16 Date Recorded Body height Body mass index (BMI) Body weight Heart rate Oxygen saturation Oxygen saturation in Arterial blood by Pulse oximetry Systolic blood pressure Diastolic blood pressure Systolic blood pressure Diastolic blood pressure Provider Name and Address Organization Details Last Updated DateTime 4 177.8 cm 44.9 kg/m2 271912. 41 g 54 /min 97 % 97 % 140 mm[Hg] 70 mm[Hg] 132 mm[Hg] 70 mm[Hg] Jeane Fabian [facility] 4 16:35:02 Social History Question Answer Notes LastModified by Organizat ion Details LastModified Time Tobacco Smoking Status Former Smoker Not Available [facility]2020 03:36:24 What Was The Date Of Your Most Recent Tobacco Screening? 02/08/2024 [email or web address] Information not available 02/08/2024 Do You Or [...] pneumococcal polysaccharide PPV23 0 [facility] 11:26:53 COVID-19, mRNA, LNP-S, PF, 30 mcg/0.3 mL dose 1 completed [facility] 11/25/2020 11:27:04 COVID-19, mRNA, LNP-S, PF, 30 mcg/0.3 mL dose 1 completed Nathalie Balicki [facility] 11/25/2020 11:27:11 Hep B, unspecified formulation 0 completed Nathalie Balicki [facility] 11/25/2020 11:27:24 Hep B, unspecified formulation 0 completed Nathalie Balicki [facility] 11/25/2020 11:27:31 Hep B, unspecified formulation 1 completed Nathalie Balicki [facility] 11/25/2020 11:27:37 Hep A, unspecified formulation 0 completed [facility] 11/25/2020 11:27:57 Hep A, unspecified formulation 0 completed [facility] 11/25/2020 11:28:04 Hep A, unspecified formulation 1 completed Nathalie Balicki [facility] 11/25/2020 11:28:12 COVID-19, mRNA, LNP-S, PF, 30 mcg/0.3 mL dose 1 completed Susan Florez [facility] 01/06/2021 09:14:20 Influenza, split virus, quadrivalent, preservative 1 completed Susan burgess [facility] 08/24/2021 10:36:11 Tdap 9 completed [facility] 01/17/2019 08:11:56 Past Encounters Encounter ID Performer Location Encounter Start Date Encounter Closed Date Diagnosis/Indication Diagnosis SNOMED-CT Code Diagnosis ICD10 Code [id number] Garry Graves DO [address] [address] 09/13/2017 10:56:44 09/13/2017 16:01:17 Hypertensive disorder 86037718 I10 Congestive heart failure 10642402 I50.9 Tenosynovi tis of wrist 699085124 M65.839 [id number] Garry Graves DO [address] [address] 01/25/2018 09:33:47 01/25/2018 10:14:56 Morbid obesity 103406223 E66.01 Hypertensive disorder 38 573126 I10 Congestive heart failure 71951311 I50.9 Obstructiv e sleep apnea syndrome 22903724 G47.33 Screening for cardiovascular system disease 753125896 Z13.6 Edema of l ower extremity 521361601 R60.0 [id number] Mary Jo [place] NP, S [address] [address] 05/23/2018 10:33:27 05/23/2018 16:49:35 Morbid obesity 414353851 E66.01 Acute bronchitis 0417183 2 J20.9 Hypertensive disorder 38 803781 I10 Obstructiv e sleep apnea syndrome 54235439 G47.33 [id number] Garry Graves DO [address] [address] 08/02/2018 08:56:16 08/02/2018 12:49:34 Obstructive sleep apnea syndrome 22210441 G47.33 Hypertensive disorder 38 457731 I10 Congestive heart failure 41984758 I50.9 Morbid obesity 028687127 E66.01 Wrist joint pain 8101885 09 M25.539 [id number] Garry Graves DO [address] [address] 11/20/2018 16:16:38 11/20/2018 17:38:10 Adverse reaction to drug 36430272 T50.905A Hypertensive disorder 38 229577 I10 Congestive heart failure 36440028 I50.9 [id number] IKE Sanchez [address] [address] 12/27/2018 10:47:48 12/27/2018 13:47:31 Body mass index 40+ - severely obese 278151089 Z68.42 Hypertensive disorder 38 844171 I10 Obstructiv e sleep apnea syndrome 21827509 G47.33 Knee pain 01398886 M25.5 69 [id number] Garry Graves [address] [address] 01/08/2019 09:49:46 01/08/2019 10:20:43 Osteoarthritis of knee 238073209 M17.9 [id number] Garry Graves [address] [address] 02/07/2019 08:53:44 02/07/2019 10:48:03 Hypertensive disorder 66402335 I10 Congestive heart failure 93334333 I50.9 Chronic diarrhea 8580802 09 K52.9 Morbid obesity 140588918 E66.01 [id number] Garry Graves DO [address] [address] 05/07/2019 10:23:47 05/07/2019 10:53:59 Hypertensive disorder 24198067 I10 Congestive heart failure 18702231 I50.9 Obstructiv e sleep apnea syndrome 56392933 G47.33 Diarrhea 73160113 R19.7 Crohn's disease 30959423 K50.90 [id number] Garry Graves [address] [address] 08/17/2019 09:29:29 08/17/2019 12:16:51 Congestive heart failure 07800221 I50.9 Hypertensive disorder 38 349448 I10 Obstructiv e sleep apnea syndrome 96214068 G47.33 Microcytic anemia 764118 007 D50.9 [id number] Garry Graves DO [address] [address] 12/07/2019 08:58:03 12/07/2019 11:52:09 Congestive heart failure 05758214 I50.9 Crohn's disease 25377639 K50.90 Hypertensive disorder 38 449179 I10 Obstructiv e sleep apnea syndrome 53284446 G47.33 [id number] Garry Graves DO [address] [address] 04/28/2020 08:45:16 04/28/2020 10:57:40 Congestive heart failure 75015260 I50.9 Hypertensive disorder 38 990907 I10 Obstructiv e sleep apnea syndrome 92482249 G47.33 Morbid obesity 905785393 E66.01 Crohn's disease 97640957 K50.90 [id number] Garry Graves DO [address] [address] 11/28/2020 11:06:02 11/28/2020 12:11:18 Hypertensive disorder 84591264 I10 Congestive heart failure 05562509 I50.9 Obstructiv e sleep apnea syndrome 60337561 G47.33 Hepatitis C screening 41 0306804 Z11.59 Morbid obesity 035921077 E66.01 Crohn's disease 76230274 K50.90 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 0610709880 106 K50.018 [id number] SAI PIERCE [address] [address] 12/10/2020 09:52:05 12/10/2020 11:56:49 Neck pain 03202287 M54.2 Torticollis 70752995 M43 .6 [id number] SAI PIERCE [address] [address] 01/06/2021 09:05:10 01/06/2021 12:01:51 Epidermoid cyst of skin 514390419 L72.3 Degenerati on of cervical intervertebral disc 41387138 M50.30 [id number] SAI PIERCE [address] [address] 03/16/2021 11:22:42 03/16/2021 12:41:23 Low back pain 077283186 M54.59 Abnormal gait 03146970 R 26.9 Bursitis o f olecranon of right elbow 6613635903 56838 M70.21 [id number] Garry Graves, DO [address] [address] 04/20/2021 10:25:43 04/20/2021 12:42:30 Hypertensive disorder 37039906 I10 Congestive heart failure 36347624 I50.9 Obstructiv e sleep apnea syndrome 27823681 G47.33 Crohn's disease 23430296 K50.90 Degenerati on of lumbar intervertebral disc 73863660 M51.36 Hearing loss 88024890 H9 0.3 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 0925063035 105 M48.02 [id number] Garry Graves, DO [address] [place] [address] 08/24/2021 10:25:17 08/24/2021 11:40:12 Hypertensive disorder 45676951 I10 Congestive heart failure 77946660 I50.9 Morbid obesity 829482494 E66.01 Crohn's disease 92983830 K50.90 [id number] Garry Graves, DO [address] [address] 12/11/2021 14:47:03 12/11/2021 16:18:04 Hypertensive disorder 67834547 I10 Depression screening 171 112892 Z13.31 Crohn's disease 75995604 K50.90 Congestive heart failure 16639605 I50.9 Osteoarthritis 619334638 M19.90 [id number] Garry Graves DO [address] [address] 04/30/2022 10:54:24 04/30/2022 15:17:59 Congestive heart failure 72190066 I50.9 Hypertensive disorder 38 783491 I10 Osteoarthritis 358431504 M19.90 Obstructiv e sleep apnea syndrome 88811878 G47.33 [id number] Garry Graves DO [address] [address] 11/26/2022 10:17:44 11/26/2022 11:32:27 Congestive heart failure 47160710 I50.9 Hypertensive disorder 38 247508 I10 Morbid obesity 494180451 E66.01 Crohn's disease 29196625 K50.90 [id number] SAI PIERCE [address] [address] 06/06/2023 10:12:51 06/06/2023 10:41:44 Morbid obesity 651541573 E66.01 Hypertensive disorder 38 795965 I10 Obstructiv e sleep apnea syndrome 99252577 G47.33 Congestive heart failure 34362320 I50.89 Pre-surger y evaluation 176440171 Z01.818 [id number] Garry Graves DO [address] [address] 08/17/2023 10:37:50 08/17/2023 11:36:58 Crohn's disease 92264916 K50.90 Congestive heart failure 10055932 I50.89 Hypertensive disorder 38 665666 I10 Morbid obesity 003471970 E66.01 Chronic to phaceous gout 11283849 M1A.9XX1 Acute righ t otitis media 516504677 H66.91 [id number] Garry Graves DO [address] [address] 10/19/2023 13:46:51 10/19/2023 14:34:25 Acute right otitis media 496096664 H66.91 Depression screening 171 852143 Z13.31 Hypertensive disorder 38 330974 I10 Degenerati on of lumbar intervertebral disc 28925107 M51.36 Congestive heart failure 19014359 I50.89 Morbid obesity 490756704 E66.01 Psoriatic arthritis 1563 35774 L40.50 Crohn's disease 91225315 K50.90 [id number] Garry Graves DO [address] [place] [address] 02/08/2024 16:03:32 02/10/2024 08:57:21 Congestive heart failure 80423804 I50.89 Psoriatic arthritis 1563 98053 L40.50 Obstructiv e sleep apnea syndrome 82666203 G47.33 Health Concerns Section Related Observation LastModified by Organization Detai ls LastModified Time None Recorded Concern Status LastModified by Organization Details LastModified Time None Recorded Advance Directives Directive None Recorded Payers Encounter Date Sequence Insurance Name Policy Number Policy Damon Covered Member ID Damon Member ID Guarantor Name 11/26/2022 2 [place] Hector Hernández Isaiah [id number] Hector Isaiah 11/26/2022 1 [place] Hector Hernández Isaiah [id number] Hector Isaiah 06/06/2023 2 [place] Hector Hernández Isaiah [id number] Hector Isaiah 06/06/2023 1 [place] Hector Hernández Isaiah [id number] Hector Isaiah 08/17/2023 2 [place] eHctor Hernández Isaiah [id number] Hector Isaiah 08/17/2023 1 [place] Hector Hernández Isaiah [id number] Hector Isaiah 10/19/2023 2 [place] Hector Hernández Isaiah [id number] Hector Isaiah 10/19/2023 1 [place] Hector Hernández Isaiah [id number] Hector Isaiah 02/08/2024 2 [place] Hector Hernández Isaiah [id number] Hector Isaiah 02/08/2024 1 [place] Hector Hernández Isaiah [id number] Hector Isaiah Notes Date Note Type Note Provider Name and Address Organization Details Recorded Time 3 text/html here for ambreen overall is doing okrelates that he is not having cpno sob unless exert uses cpapbowels are goodbladder okarthritis is what is kicking his ass and state s he is quite frustrated with this at times Gar[facility] Graves, DO [address] [facility] [place], [address], [facility] 11/26/2022 10:52:15 4 text/html Pre-OpReported bypatient.Surgery to be Performed:carpal tunnel surgery (bilaterally) and both elbows (biopsy) 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 SAI PIERCE [address] [place] [address], [address], [facility] 06/06/2023 10:36:13 4 text/html has had long [...] should be restarted Gar[facility] Graves DO [address] [facility] [place], [address], [facility] 08/17/2023 11:35:26 4 text/html Care Management - [...] controlled no bleeding Garry Graves DO [address], [place], [address], [facility] 10/19/2023 14:23:32 4 text/html here for rechk and is doing jessica MTX and recent lab shows ongoing anemia creat is still ok overallarhtritis is bothering himcrohns is quiet ]'gout has been the issue uric acid is 7.2 Garry Graves DO [address], [place], [address], [facility] 02/09/2024 23:02:06
--- OUTSIDE RECORDS SUMMARY | 2024-04-26 01:46 | XMS_ITS | Continuity of Care Document ---
Author Organization [facility], [facility] Address [address] [place] [address] Assessment Encounter Date Assessment Date Assessment LastModified [...] reduce health risks and promote healthy living. [email or web address] Not available 02/08/2024 16:33:32 Plan of Treatment [...] By Organization Details Last Modified Time 02/08/2024 [id number] pulse oximetry* Not available 02/09/2024 23:02:02 sleep apnea: car e instructions Not available 02/09/2024 23:02:02 Reason for Referral None Reported. Results Created Date Observation Date Name Description Value Unit Range Abnormal Flag Note LastModifiedBy Organization Detail LastModifiedTime 02/08/2002/08/2024 pulse oxime try* Result 97 Not Available [facility] Address [address] [facility], [place], [address], 02/06/2024 12:00:52 Result Notes None recorded. Problems Name Problem SNOMED Code Status Onset Date Resolution Date Notes Provider Name and Address Organization Details Recorded Time Crohn's disease 98897462 Active 2019 Garry Graves, DO [address], [place], [address], [facility] 0 11:51:44 Degeneration of lumbar intervertebral disc 35380996 Active 2020 Garry Graves, DO [address], [place], [address], [facility] 1 10:47:53 Osteoarthritis 465074018 Active 2021 Garry Graves, DO [address], [place], [address], [facility] 2 15:14:41 Degenerative joint disease of hand 45506390 Active 2022 SAI PIERCE [address], [place], [address], [facility] 3 15:28:27 COVID-19 498755769 Active 2023 Garry Graves, DO [address], [place], [address], [facility] 4 13:31:54 Chronic tophaceous gout 74187848 Active 2023 Garry Graves, DO [address], [place], [address], [facility] 4 11:11:39 Acute right otitis media 777824572 Active 2023 Garry Graves, DO [address], [place], [address], [facility] 4 11:34:54 Psoriatic arthritis 112196585 Active 2023 Garry Graves, DO [address], [place], [address], [facility] 4 14:16:12 Morbid [facility] 287200055 [facility] 08:45:56 Congestive heart failure 90225814 Active 2017 Susan burgess [facility] 8 08:45:59 Obstructive sleep apnea syndrome 23584907 Active 2017 Susan burgess [facility] 8 08:46:05 Hypertensive disorder 87658658 Active 2017 [facility] 08:46:10 Problem Notes None recorded. Procedures Surgical History Date Name Laterality Status Provider Name and Address Organization Details Recorded Time 01/09/20 19 Corticosteroid Injection completed Garry Graves DO [address] [place] [address], [address], [facility] 01/08/2019 10:11:59 Imaging Results None recorded. Procedure Notes None recorded. Medical Equipment None Reported. Allergies Allergen ID Allergen Name Allergen Category Reaction Reaction Severity Criticality Documentation Date Start Date Code Code System Note Provider Name and Address Organization Details Recorded Time 3160 meloxicam medicatio n diarrhea severe Not available 11/20/20182018 95242 RxNorm Garry Graves DO [address] [place] [address], [address], [facility] 9 17:32:39 4698 tramadol medicatio n dizziness moderate Not available 01/06/2021 11110 RxNorm SAI PIERCE [address] [place] [address], [address], [facility] 1 11:05:59 Medications Name Sig Start [...] Updated DateTime 4 177.8 cm 44.9 kg/m2 806112. 41 g 54 /min 97 % 97 % 140 mm[Hg] 70 mm[Hg] 132 mm[Hg] 70 mm[Hg] Jeane Peralta [facility] 4 16:35:02 Social History Question Answer Notes LastModified by Organizat ion Details LastModified Time Tobacco Smoking Status Former Smoker Not Available [facility] 03/18/2020 03:36:24 What Was The Date Of [...] pneumococcal polysaccharide PPV23 0 completed [facility] 11/25/2020 11:26:53 COVID-19, mRNA, LNP-S, PF, 30 mcg/0.3 mL dose 1 completed [facility] 11/25/2020 11:27:04 COVID-19, mRNA, LNP-S, PF, 30 mcg/0.3 mL dose 1 completed [facility] 11/25/2020 11:27:11 Hep B, unspecified formulation 0 completed [facility] 11/25/2020 11:27:24 Hep B, unspecified formulation 0 completed [facility] 11/25/2020 11:27:31 Hep B, unspecified formulation 1 completed Nathalie Balicki null, [facility] 11/25/2020 11:27:37 Hep A, unspecified formulation 0 completed [facility] 11/25/2020 11:27:57 Hep A, unspecified formulation 0 completed Nathalie Balicki null, [facility] 11/25/2020 11:28:04 Hep A, unspecified formulation 1 completed Nathalie burgess [facility] 11/25/2020 11:28:12 COVID-19, mRNA, LNP-S, PF, 30 mcg/0.3 mL dose 1 completed Susan burgess [facility] 01/06/2021 09:14:20 Influenza, split virus, quadrivalent, preservative 1 completed Susan burgess [facility] 08/24/2021 10:36:11 Tdap 9 completed Susan burgess [facility] 01/17/2019 08:11:56 Past Encounters Encounter ID Performer Location Encounter Start Date Encounter Closed Date Diagnosis/Indication Diagnosis SNOMED-CT Code Diagnosis ICD10 Code [id number] Garry Graves DO [address],[place] [address] 02/08/2024 16:03:32 02/10/2024 08:57:21 Congestive heart failure 29152261 I50.89 Psoriatic arthritis 1563 99251 L40.50 Obstructiv e sleep apnea syndrome 28659113 G47.33 Health Concerns Section Related Observation LastModified by Organization Detai ls LastModified Time None Recorded Concern Status LastModified by Organization Details LastModified Time None Recorded Payers Encounter Date Sequence Insurance Name Policy Number Policy Damon Covered Member ID Damon Member ID Guarantor Name 02/08/2024 2 [place] Hector Colon [id number] Hector Colon 02/08/2024 1 [place] [employer] Hector Colon [id number] Hector Colon Notes Date Note Type Note Provider Name and Address Organization Details Recorded Time 02/08/2024 text/html here for ambreen vidal nd is doing jessica MTX and recent lab shows ongoing anemia creat is still ok overallarhtritis is bothering himcrohns is quiet ]'gout has been the issue uric acid is 7.2 Garry Graves DO [address] [place] [address],[place], [address], [place] [facility] 02/09/2024 23:02:06
== END 2024-04-25 12:17 | disposition home or self-care (01) ==
PROVIDERS: PCP Internal Medicine; Visit Provider Student in an Organized Health Care Education/Training Program
DX: K63.9 Disease of intestine, unspecified (principal); M07.60 Enteropathic arthropathies, unspecified site; M1A.9XX1 Chronic gout, unspecified, with tophus (tophi); Z79.631 Long term (current) use of antimetabolite agent; N18.31 Chronic kidney disease, stage 3a
CPT/HCPCS: 99214; G2211

== ENCOUNTER → 2024-04-25 11:38 | Outpatient (BNVA) | payer MEDICARE, MEDICAID, SELFPAY | PROVIDERS: PCP Internal Medicine; Visit Provider Student in an Organized Health Care Education/Training Program | DX: K50.918 Crohn's disease, unspecified, with other complication (principal); M07.60 Enteropathic arthropathies, unspecified site; M1A.9XX1 Chronic gout, unspecified, with tophus (tophi); N18.31 Chronic kidney disease, stage 3a; Z79.631 Long term (current) use of antimetabolite agent | CPT/HCPCS: 99212 ==

== ENCOUNTER 2024-05-02 12:30 | Outpatient (REF) | payer MEDICARE, MEDICAID, SELFPAY ==
--- OUTSIDE RECORDS SUMMARY | 2024-05-02 12:33 | XMS_ITS | Continuity of Care Document ---
Author Organization [place] - [facility], [facility] Address [address] [facility] [place] [address] [place] [address] Assessment Encounter Date Assessment Date Assessment LastModified [...] reduce health risks and promote healthy living. [email or web address] Not available 02/08/2024 16:33:32 Plan of Treatment [...] By Organization Details Last Modified Time 02/08/2024 624205 pulse oximetry* Not available 02/09/2024 23:02:02 sleep apnea: car e instructions Not available 02/09/2024 23:02:02 Reason for Referral None Reported. Results Created Date Observation Date Name Description Value Unit Range Abnormal Flag Note LastModifiedBy Organization Detail LastModifiedTime 02/08/2002/08/2024 pulse oxime try* Result 97 Not Available [facility] [address] [facility] [address], [place], [address], 02/06/2024 12:00:52 Result Notes None recorded. Problems Name Problem SNOMED Code Status Onset Date Resolution Date Notes Provider Name and Address Organization Details Recorded Time Crohn's disease 18309363 Active 2019 Garry Graves DO [address] [place], [address], [facility] 0 11:51:44 Degenerati on of lumbar interverte bral disc 58301346 Active 2020 Garry Graves DO [address] [place] [address], [address], [facility] 1 10:47:53 Osteoarthr itis 002590093 Active 2021 Garry Graves DO [address] [place] [address], [address], [facility] 2 15:14:41 Degenerati ve joint disease of hand 55707963 Active 2022 SAI PIERCE [address] [place] [address], [address], [facility] 3 15:28:27 COVID-19 052486603 Active 2023 Garry Graves DO [address] [place] [address], [address], [facility] 4 13:31:54 Chronic tophaceous gout 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 Active 2023 Garry Graves DO [address] [place] [address], [address], [facility] 4 11:11:39 Acute right otitis media 044990828 Active 2023 Garry Graves DO [address] [place] [address], [address], [facility] 4 11:34:54 Psoriatic arthritis 426123266 Active 2023 Garry Graves DO [address] [place] [address], [address], [facility] 4 14:16:12 Morbid obesity 443329004 Active 2017 Susan Florez [facility] 8 08:45:56 Congestive heart failure 76323287 Active 2017 Susan Florez [facility] 8 08:45:59 Obstructiv e sleep apnea syndrome 48693492 Active 2017 Susan Florez [facility] 8 08:46:05 Hypertensi ve disorder 57109270 Active 2017 Susan Florez [facility] 8 08:46:10 Problem Notes None recorded. Procedures Surgical History Date Name Laterality Status Provider Name and Address Organization Details Recorded Time 019 Corticosteroid Injection completed Garry Graves DO [address] [place] [address], [address], [facility] 01/08/2019 10:11:59 Imaging Results None recorded. Procedure Notes None recorded. Medical Equipment None Reported. Allergies Allergen ID Allergen Name Allergen Category Reaction Reaction Severity Criticality Documentation Date Start Date Code Code System Note Provider Name and Address Organization Details Recorded Time 3160 meloxicam medicatio n diarrhea severe Not available 11/20/20182018 29108 RxNorm Garry Graves DO [address] [place], [address], [facility] 9 17:32:39 4698 tramadol medicatio n dizziness moderate Not available 01/06/2021 40816 RxNorm SAI PIERCE [address] [place], [address], [facility] 1 11:05:59 Medications Name Sig Start [...] Updated DateTime 4 177.8 cm 44.9 kg/m2 250756. 41 g 54 /min 97 % 97 % 140 mm[Hg] 70 mm[Hg] 132 mm[Hg] 70 mm[Hg] Jeane Peralta [facility] 4 16:35:02 Social History Question Answer Notes LastModified by Organizat ion Details LastModified Time Tobacco Smoking Status Former Smoker Not Available [facility] 03/18/2020 03:36:24 What Was The Date Of Your Most Recent Tobacco Screening? 02/08/2024 [email or web address] Information not available 02/08/2024 Do You Or [...] pneumococcal polysaccharide PPV23 0 [facility] 11:26:53 COVID-19, mRNA, LNP-S, PF, 30 mcg/0.3 mL dose 1 completed [facility] 11/25/2020 11:27:04 COVID-19, mRNA, LNP-S, PF, 30 mcg/0.3 mL dose 1 completed [facility] 11/25/2020 11:27:11 Hep B, unspecified formulation 0 completed [facility] 11/25/2020 11:27:24 Hep B, unspecified formulation 0 completed [facility] 11/25/2020 11:27:31 Hep B, unspecified formulation 1 completed [facility] 11/25/2020 11:27:37 Hep A, unspecified formulation 0 completed [facility] 11/25/2020 11:27:57 Hep A, unspecified formulation 0 [facility] 11/25/2020 11:28:04 Hep A, unspecified formulation 1 completed Nathalie burgess [facility] 11/25/2020 11:28:12 COVID-19, mRNA, LNP-S, PF, 30 mcg/0.3 mL dose 1 completed Susan burgess [facility] 01/06/2021 09:14:20 Influenza, split virus, quadrivalent, preservative 1 completed Susan burgess [facility] 08/24/2021 10:36:11 Tdap 9 enmanuel burgess [facility] 01/17/2019 08:11:56 Past Encounters Encounter ID Performer Location Encounter Start Date Encounter Closed Date Diagnosis/Indication Diagnosis SNOMED-CT Code Diagnosis ICD10 Code [id number] Garry Graves DO [facility] [address] [place] [address] 02/08/2024 16:03:32 02/10/2024 08:57:21 Congestive heart failure 01350891 I50.89 Psoriatic arthritis 1563 05165 L40.50 Obstructiv e sleep apnea syndrome 70789929 G47.33 Health Concerns Section Related Observation LastModified by Organization Detai ls LastModified Time None Recorded Concern Status LastModified by Organization Details LastModified Time None Recorded Payers Encounter Date Sequence Insurance Name Policy Number Policy Damon Covered Member ID Damon Member ID Guarantor Name 02/08/2024 2 [place] Hector Colon [id number] Hector Colon 02/08/2024 1 [place] [employer] Hector Hernández Isaiah [id number] Hector Colon Notes Date Note Type Note Provider Name a nd Address Organization Details Recorded Time 4 text/html here for rechk and is doing jessica MTX and recent lab shows ongoing anemia creat is still ok overallarhtritis is bothering himcrohns is quiet ]'gout has been the issue uric acid is 7.2 Grary Graves DO [address] [place], [address], [place] [facility] 02/09/2024 23:02:06
--- OUTSIDE RECORDS SUMMARY | 2024-05-02 12:33 | XMS_ITS ---
Author Organization [facility] Address [address] [place] [address] Care Team Providers Care Fashion Editor Name Role Phone Garry Graves MD Primary Care Provider Daisy George Unavailable [phone] Solomon Ventura Unavailable [phone] Allergies Allergen (clinical drug ingredient) Drug/Non Drug [...] Problem Status W/U Status Risk Notes Problem 59123231 Venous insufficiency (I87.2) Active confirmed Vital Signs Height 5 ft 11 in in 08/25/2023 Weight 334 lbs 08/25/2023 BMI 46.58 kg/m2 08/25/2023 Encounters Encounter Location Date Provider Diagnosis [facility] [address] [place] [address] 08/25/2023 Solomon Ventura Plantar fascial fibromatosis M72.2 [...] Provider Name:Daisy collado, 08/30/2024 11:15:00 AM, [address] [place], [address], Progress Notes * Hector COLON KDOB:[birth year] (68 yo M)Acc No.[id number]:08/25/2023 Progress Note Patient:?Hector Colon Edgar Provider:?Solomon Ventura DPM :1955???Age:68 Y???Sex:Male Narciso e:08/25/2023 Address:[address] [place], [place] [address] Pcp:Garry Graves MD Subjective: * Chief Complaints: * ???Last Visit PCP 08/17/23 * HPI: ???Heel pain:?Nature:?aching.?Location:?B/L, proximal plantar aspect of heel--left more severe than right.?Duration:?several years .?Onset/Cause:?unknown.?Course:?improved with use of upright walker over past sev months.?Aggrevated:?standing, walking.?Treatments:?rest, change in shoes, innersoles, corticosteriod injection; custom orthoses and aleve; rest helps the most; methotrexate for tx of arthritis; Dr. Balderrama--[facility] rheum.?Skin problems:?Nature:?dryness.?Location:?Heel/Rearfoot, B/L .?Duration:?several weeks.?Onset/Cause:?unknown.?Treatments:?medication ( Eucerin).?Severity/Quality:?moderate.?Foot [...] Exercise. ?Marital status: . ?Occupation: Retired-[employer]. * Medications:?TakingAllopurin ol 100 MG Tablet [...] DPM Date:? 024 Generated for Capo raman/Davidson/Agathaitting on:?05/02/2024 12:32 PM EST History and Physical Notes * [...] most; methotrexate for tx of arthritis; Dr. Balderrama--[facility] rheum Skin problems Nature: dryness Location: Heel/Rearfoot, [...] ORIENTED: person,place, and ti me Vascular DP PULSES (B): 1/4, B/L PT PULSES (B): 1/4, B/L CAPILLARY FILL TIME: 3 secs. per digit, b/l TROPHIC CONDITION-TEXTURE/EL ASTICITY/TURGOR/HAIR GROWTH (B): absent EDEMA (C): 1/4, B/L, Feet, Ankl e(s), Leg(s) TELANGECTASIA: moderate VARICOSITIES: present, moderate, n onpainful, B/L
--- OUTSIDE RECORDS SUMMARY | 2024-05-02 12:33 | XMS_ITS | Patient Health Record ---
Author Organization [facility] [place] Address [address] [place] [address] Care Team Providers Care Geotechnical Operating Engineer Name Role Phone Star SEGURA, Garry Primary Care Provider Daisy George Unavailable [phone] Lorenzo Solomon Unavailable [phone] Allergies Allergen (clinical drug ingredient) Drug/Non Drug [...] primary osteoarthritis of the ankle and/or foot (889862254) Primary osteoarthritis, left ankle and foot (M19.072) Active confirmed Problem Plantar fascial fibromatosis (82733156) Plantar 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) Active confirmed Problem Acquired hammer toe of right foot (6051386726337493) Other hammer toe(s) (acquired), right foot (M20.41) Active confirmed Problem Acquired hammer toe of left foot (2398717868767756) Other hammer toe(s) (acquired), left foot (M20.42) Active confirmed Problem 24718977 Venous insufficiency (I87.2) Active confirmed Vital Signs Height 5 ft 11 in in 08/25/2023 Weight 334 lbs 08/25/2023 BMI 46.58 kg/m2 08/25/2023 Encounters Encounter Location Date Provider Diagnosis [address] [address] 08/25/2023 Solomon Ventura Plantar fascial fibromatosis M72.2 [...] Localized edema R60.0 and Venous insufficiency I87.2 [facility] [address] [address] 09/28/2023 Solomon Ventura Assessments Encounter Date Diagnosis [...] Details Provider Name:Daisy collado, 08/30/2024 11:15:00 AM, [address] [place] [address], [address], Insurance Providers Payer Name Payer Address Payer Phone Subscriber Number Group Number Insured Name Patient Relationship to Insured Coverage Start Date Coverage End Date Medicare National [employer] [address] [place] [address] [id number] Hector Colon Self - patient is the insured Medical (General) History Medical History History ICD Code transfusions diverticulosis chicken pox back, hip, knee pain chron's Surgical History Surgery Date(Month/Year) colon/intestinal surgery heart surgery unspecified kymberly
--- OUTSIDE RECORDS SUMMARY | 2024-05-02 12:33 | XMS_ITS | Data Portability ---
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 [email or web address] Not available 02/08/2024 16:33:32 Plan of Treatment Reminders Order Date Submit Date Provider Last Modified By Organization Details Last Modified Time Details Appointments None recorded. Lab vitamin D, 25-hydroxy , total, serum 2022 023 [facility], [address] [place] [address], [address], 3 12:56:38 vitamin B12, serum 2022 023 NELA [facility], [address] [place] [address], [address], 3 12:56:38 vitamin B1 (thiamine) , serum 2022 023 [facility]er[facility], [address] [place] [address], [address], 3 11:16:12 folate, serum 2022 023 [place] [facility], [address] [place], [address], 3 12:56:38 CMP, serum or plasma 2022 023 ATHENAFAX [facility], [address] [place], [address], 10:55:22 pro BNP (pro B-type natriureti c peptide), serum or plasma 2022 023 NELA [facility], [address] [place], [address], 12:56:38 CBC 2022 023 ATHENAX [facility], [address] [place], [address], 10:55:21 Referral None recorded. Procedures None recorded. Surgeries None recorded. Imaging None recorded. Medication Orders amoxicilli n 875 mg-potassi um clavulanat e 125 mg tablet 2023 024 [address] [id number], [address] [place], [place], [id number], 13:55:23 Patient TargetsNo targets recorded. Patient Instructions Encounter Date Encounter Id Patient Instructions Last Modified By Organization Details Last Modified Time 08/17/2023 [id number] pulse oximetry* Not available 08/17/2023 11:13:27 10/19/2023 [id number] When You Want to Lose Weight: Care Instructions Not available 10/19/2023 14:23:11 crohn's disease: care instructions Not available 10/19/2023 14:23:11 heart failure: care instructions Not available 10/19/2023 14:23:11 learning about heart failure Not available 10/19/2023 14:23:11 02/08/2024 [id number] pulse oximetry* Not available 02/09/2024 23:02:02 sleep apnea: car e instructions Not available 02/09/2024 23:02:02 Reason for Referral None Reported. Results Created Date Observation Date Name Description Value Unit Range Abnormal Flag Note LastModifiedBy Organization Detail LastModifiedTime 08/17/19 24 08/17/2023 pulse oxime try* Result 97 Not Available [facility] [address] [facility] [address], [place], [address], 08/15/2023 14:00:34 02/08/20 24 02/08/2024 pulse oxime try* Result 97 Not Available [facility] [address] [facility] [address], [place], [address], 02/06/2024 12:00:52 02/01/20 23 01/28/2023 MRI, cervi nia spine , w/o contr ast No observ ation record ed. [facility] [place] [address] [address], [place], [address], 01/31/2023 15:06:36 06/28/19 24 06/24/2023 US, echoc ardio gram No observ ation record ed. [facility], [place], [address], 08/17/2023 10:58:21 Result Notes None recorded. Problems Name Problem SNOMED Code Status Onset Date Resolution Date Notes Provider Name and Address Organization Details Recorded Time Crohn's disease 82651761 Active 2019 Garry Graves DO [address] [facility], [place], [address], [facility] 0 11:51:44 Degenerati on of lumbar interverte bral disc 16182959 Active 2020 Garry Graves DO [address] [facility], [place], [address], [facility] 10:47:53 Osteoarthr itis 890099696 Active 2021 Garry Graves, DO [address] [place] [address], [address], [facility] 2 15:14:41 Degenerati ve joint disease of hand 12249206 Active 2022 SAI PIERCE [address] [place] [address], [address], [facility] 3 15:28:27 COVID-19 608950244 Active 2023 Garry YvonneRory Graves, DO [address] [place] [address], [address], [facility] 4 13:31:54 Chronic tophaceous gout 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 Active 2023 Garry Graves, DO [address] [place] [address], [address], [facility] 4 11:11:39 Acute right otitis media 504352216 Active 2023 Garry Graves, DO [address] [place] [address], [address], [facility] 4 11:34:54 Psoriatic arthritis 483517626 Active 2023 Garry Graves, DO [address] [place] [address], [address], [facility] 4 14:16:12 Morbid obesity 761604427 Active 2017 Susan burgess [facility] 8 08:45:56 Congestive heart failure 57187067 Active 2017 Susan burgess [facility] 8 08:45:59 Obstructiv e sleep apnea syndrome 57905643 Active 2017 Susan burgess [facility] 8 08:46:05 Hypertensi ve disorder 66690051 Active 2017 Susan burgess [facility] 8 08:46:10 Problem Notes None recorded. Procedures Surgical History Date Name Laterality Status Provider Name and Address Organization Details Recorded Time 019 Corticosteroid Injection completed Garry RussellRory Lópezalexander, [address] [place], [address], [facility] 01/08/2019 10:11:59 Imaging Results Imaging Date Name Status LastModified by Organization Details LastModified Time 01/28/2023 MRI, cervical spine, w/o contrast completed [facility] [place] [address] [facility] [address], [place], [address], 01/31/2023 15:06:36 06/24/2023 US, echocardiogram completed [facility] [address] [place] [address] [address], [place], [address], 08/17/2023 10:58:21 Procedure Notes None recorded. Medical Equipment None Reported. Allergies Allergen ID Allergen Name Allergen Category Reaction Reaction Severity Criticality Documentation Date Start Date Code Code System Note Provider Name and Address Organization Details Recorded Time 3160 meloxicam medicatio n diarrhea severe Not available 11/20/20182018 89675 RxNorm Garry Graves DO [address] [place], [address], [facility] 9 17:32:39 4698 tramadol medicatio n dizziness moderate Not available 01/06/2021 01290 RxNorm SAI PIERCE [address] [place], [address], [facility] 11:05:59 Medications Name Sig Start [...] Updated DateTime 3 177.8 cm 46.8 kg/m2 253833. 11 g 66 /min 97 % 97 % 140 mm[Hg] 90 mm[Hg] Jeane Dietrich [facility] 3 10:29:37 Date Recorded Body height Body mass index (BMI) Body weight Heart rate Oxygen saturation Oxygen saturation in Arterial blood by Pulse oximetry Systolic blood pressure Diastolic blood pressure Provider Name and Address Organization Details Last Updated DateTime 4 177.8 cm 45.3 kg/m2 848864. 19 g 67 /min 97 % 97 % 140 mm[Hg] 70 mm[Hg] Jeane Peralta [facility] 4 10:19:26 Date Recorded Body height Body mass index (BMI) Body weight Heart rate Oxygen saturation Oxygen saturation in Arterial blood by Pulse oximetry Systolic blood pressure Diastolic blood pressure Provider Name and Address Organization Details Last Updated DateTime 4 177.8 cm 44.9 kg/m2 115673. 41 g 55 /min 97 % 97 % 140 mm[Hg] 60 mm[Hg] Jeane Peralta [facility] 4 10:44:51 Date Recorded Body height Body mass index (BMI) Body weight Heart rate Respiratory rate Oxygen saturation Oxygen saturation in Arterial blood by Pulse oximetry Systolic blood pressure Diastolic blood pressure Provider Name and Address Organization Details Last Updated DateTime 4 177.8 cm 44.9 kg/m2 001549. 41 g 52 /min 18 /min 99 % 99 % 132 mm[Hg] 66 mm[Hg] João Joyner [facility] 4 13:57:16 Date Recorded Body height Body mass index (BMI) Body weight Heart rate Oxygen saturation Oxygen saturation in Arterial blood by Pulse oximetry Systolic blood pressure Diastolic blood pressure Systolic blood pressure Diastolic blood pressure Provider Name and Address Organization Details Last Updated DateTime 4 177.8 cm 44.9 kg/m2 219711. 41 g 54 /min 97 % 97 % 140 mm[Hg] 70 mm[Hg] 132 mm[Hg] 70 mm[Hg] Jeane [facility] 4 16:35:02 Social History Question Answer Notes LastModified by Organizat ion Details LastModified Time Tobacco Smoking Status Former Smoker Not Available [facility] 03/18/2020 03:36:24 What Was The Date Of Your Most Recent Tobacco Screening? 02/08/2024 [email or web address] Information not available 02/08/2024 Do You Or [...] pneumococcal polysaccharide PPV23 0 [facility] 11:26:53 COVID-19, mRNA, LNP-S, PF, 30 mcg/0.3 mL dose 1 completed [facility] 11/25/2020 11:27:04 COVID-19, mRNA, LNP-S, PF, 30 mcg/0.3 mL dose 1 completed Nathalie Balicki [facility] 11/25/2020 11:27:11 Hep B, unspecified formulation 0 completed Nathalie Balicki [facility] 11/25/2020 11:27:24 Hep B, unspecified formulation 0 completed Nathalie Balicki [facility] 11/25/2020 11:27:31 Hep B, unspecified formulation 1 completed Nathalie Balicki [facility] 11/25/2020 11:27:37 Hep A, unspecified formulation 0 completed Nathalie Balicki [facility] 11/25/2020 11:27:57 Hep A, unspecified formulation 0 completed [facility] 11/25/2020 11:28:04 Hep A, unspecified formulation 1 completed [facility] 11/25/2020 11:28:12 COVID-19, mRNA, LNP-S, PF, 30 mcg/0.3 mL dose 1 completed Susan Florez [facility] 01/06/2021 09:14:20 Influenza, split virus, quadrivalent, preservative 1 completed Susan burgess [facility] 08/24/2021 10:36:11 Tdap 9 completed Susan burgess [facility] 01/17/2019 08:11:56 Past Encounters Encounter ID Performer Location Encounter Start Date Encounter Closed Date Diagnosis/Indication Diagnosis SNOMED-CT Code Diagnosis ICD10 Code [id number] Garry Graves [facility] [address] [address] 09/13/2017 10:56:44 09/13/2017 16:01:17 Hypertensive disorder 94967702 I10 Congestive heart failure 47485404 I50.9 Tenosynovi tis of wrist 543841229 M65.839 [id number] Garry Graves [address] [address] 01/25/2018 09:33:47 01/25/2018 10:14:56 Morbid obesity 427384712 E66.01 Hypertensive disorder 38 311573 I10 Congestive heart failure 01282704 I50.9 Obstructiv e sleep apnea syndrome 22791337 G47.33 Screening for cardiovascular system disease 743105532 Z13.6 Edema of l ower extremity 484082153 R60.0 [id number] Mary Jo Washington NP, [facility] [address] [address] 05/23/2018 10:33:27 05/23/2018 16:49:35 Morbid obesity 102459642 E66.01 Acute bronchitis 5745925 2 J20.9 Hypertensive disorder 38 453414 I10 Obstructiv e sleep apnea syndrome 25048198 G47.33 [id number] Garry Graves [facility] [address] [address] 08/02/2018 08:56:16 08/02/2018 12:49:34 Obstructive sleep apnea syndrome 43054273 G47.33 Hypertensive disorder 38 361789 I10 Congestive heart failure 20701228 I50.9 Morbid obesity 568602680 E66.01 Wrist joint pain 9614787 09 M25.539 [id number] Garry Graves [facility] [address] [facility] [address] 11/20/2018 16:16:38 11/20/2018 17:38:10 Adverse reaction to drug 16299136 T50.905A Hypertensive disorder 38 799497 I10 Congestive heart failure 88815561 I50.9 [id number] August IKE Hernandez [facility] [address] [facility] [address] 12/27/2018 10:47:48 12/27/2018 13:47:31 Body mass index 40+ - severely obese 956947805 Z68.42 Hypertensive disorder 38 403000 I10 Obstructiv e sleep apnea syndrome 74218387 G47.33 Knee pain 69698568 M25.5 69 [id number] Garry Graves [facility] [address] [place] [address] [place] [address] 01/08/2019 09:49:46 01/08/2019 10:20:43 Osteoarthritis of knee 271332982 M17.9 [id number] Garry Graves [facility] [address] [place] [address] [place] [address] 02/07/2019 08:53:44 02/07/2019 10:48:03 Hypertensive disorder 04603243 I10 Congestive heart failure 92309355 I50.9 Chronic diarrhea 5896310 09 K52.9 Morbid obesity 456957764 E66.01 [id number] Garry Graves [facility] [address] [place] [address], [place] [address] 05/07/2019 10:23:47 05/07/2019 10:53:59 Hypertensive disorder 62638857 I10 Congestive heart failure 51748624 I50.9 Obstructiv e sleep apnea syndrome 27689495 G47.33 Diarrhea 27861802 R19.7 Crohn's disease 14297930 K50.90 [id number] Garry Graves [facility] [address] [place] [address] [place] [address] 08/17/2019 09:29:29 08/17/2019 12:16:51 Congestive heart failure 39319322 I50.9 Hypertensive disorder 38 325912 I10 Obstructiv e sleep apnea syndrome 75521863 G47.33 Microcytic anemia 269621 007 D50.9 [id number] Garry Graves [facility] [address] [facility] [place] [address] 12/07/2019 08:58:03 12/07/2019 11:52:09 Congestive heart failure 75679115 I50.9 Crohn's disease 56065322 K50.90 Hypertensive disorder 38 927637 I10 Obstructiv e sleep apnea syndrome 35638014 G47.33 [id number] Garry Graves [facility] [address] [facility] [place] [address] 04/28/2020 08:45:16 04/28/2020 10:57:40 Congestive heart failure 75479311 I50.9 Hypertensive disorder 38 864687 I10 Obstructiv e sleep apnea syndrome 56993509 G47.33 Morbid obesity 466397821 E66.01 Crohn's disease 39331103 K50.90 [id number] Garry Graves [facility] [address] [facility] [place] [address] 11/28/2020 11:06:02 11/28/2020 12:11:18 Hypertensive disorder 48131921 I10 Congestive heart failure 29717721 I50.9 Obstructiv e sleep apnea syndrome 40414446 G47.33 Hepatitis C screening 41 2301634 Z11.59 Morbid obesity 131579512 E66.01 Crohn's disease 83841773 K50.90 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 5517826817 106 K50.018 [id number] SAI PIERCE [facility] [address] [place] [address] [place] [address] 12/10/2020 09:52:05 12/10/2020 11:56:49 Neck pain 84935747 M54.2 Torticollis 93412139 M43 .6 [id number] SAI PIERCE [facility] [address] [place] [address] it[address] [facility] [place] [address] 01/06/2021 09:05:10 01/06/2021 12:01:51 Epidermoid cyst of skin 526396491 L72.3 Degenerati on of cervical intervertebral disc 85075868 M50.30 [id number] SAI PIERCE [facility] [address] [place] [address] 03/16/2021 11:22:42 03/16/2021 12:41:23 Low back pain 960805189 M54.59 Abnormal gait 01971825 R 26.9 Bursitis o f olecranon of right elbow 5333428292 22163 M70.21 [id number] Garry Graves [facility] [address] [place] [address] 04/20/2021 10:25:43 04/20/2021 12:42:30 Hypertensive disorder 27811747 I10 Congestive heart failure 52784540 I50.9 Obstructiv e sleep apnea syndrome 59341699 G47.33 Crohn's disease 69462279 K50.90 Degenerati on of lumbar intervertebral disc 21934282 M51.36 Hearing loss 31625522 H9 0.3 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 3766737905 105 M48.02 [id number] Garry Graves [facility] [address] [place] [address] 08/24/2021 10:25:17 08/24/2021 11:40:12 Hypertensive disorder 26239381 I10 Congestive heart failure 06441707 I50.9 Morbid obesity 237329531 E66.01 Crohn's disease 74625812 K50.90 [id number] Garry Graves [facility] [address] [place] [address] 12/11/2021 14:47:03 12/11/2021 16:18:04 Hypertensive disorder 52776346 I10 Depression screening 171 066043 Z13.31 Crohn's disease 65985250 K50.90 Congestive heart failure 65359075 I50.9 Osteoarthritis 664116762 M19.90 [id number] Garry Graves [facility] [address] [place], [place] [address] [address] 04/30/2022 10:54:24 04/30/2022 15:17:59 Congestive heart failure 62312617 I50.9 Hypertensive disorder 38 626154 I10 Osteoarthritis 186768501 M19.90 Obstructiv e sleep apnea syndrome 06198944 G47.33 [id number] Garry Graves [facility] [address] [place] [address] [place] [address] 11/26/2022 10:17:44 11/26/2022 11:32:27 Congestive heart failure 99843820 I50.9 Hypertensive disorder 38 306820 I10 Morbid obesity 275963156 E66.01 Crohn's disease 87053782 K50.90 [id number] CARMELINA URBANO [facility] [address] [place] [address] [place] [address] 06/06/2023 10:12:51 06/06/2023 10:41:44 Morbid obesity 290381351 E66.01 Hypertensive disorder 38 010615 I10 Obstructiv e sleep apnea syndrome 98066187 G47.33 Congestive heart failure 18011449 I50.89 Pre-surger y evaluation 816562330 Z01.818 [id number] Garry Graves [facility] [address] [place] [address] [place] [address] 08/17/2023 10:37:50 08/17/2023 11:36:58 Crohn's disease 36612089 K50.90 Congestive heart failure 81265048 I50.89 Hypertensive disorder 38 324628 I10 Morbid obesity 414876863 E66.01 Chronic to phaceous gout 33429121 M1A.9XX1 Acute righ t otitis media 880434234 H66.91 [id number] Garry Graves [facility] [address] [place], [place] [address] [address] 10/19/2023 13:46:51 10/19/2023 14:34:25 Acute right otitis media 874469009 H66.91 Depression screening 171 415174 Z13.31 Hypertensive disorder 38 037980 I10 Degenerati on of lumbar intervertebral disc 75278278 M51.36 Congestive heart failure 08974262 I50.89 Morbid obesity 515601303 E66.01 Psoriatic arthritis 1563 14501 L40.50 Crohn's disease 94964841 K50.90 [id number] DO [facility] [address] [facility] [address] 02/08/2024 16:03:32 02/10/2024 08:57:21 Congestive heart failure 76548079 I50.89 Psoriatic arthritis 1563 20408 L40.50 Obstructiv e sleep apnea syndrome 98090506 G47.33 Health Concerns Section Related Observation LastModified by Organization Detai ls LastModified Time None Recorded Concern Status LastModified by Organization Details LastModified Time None Recorded Advance Directives Directive None Recorded Payers Encounter Date Sequence Insurance Name Policy Number Policy Damon Covered Member ID Damon Member ID Guarantor Name 11/26/2022 2 [place] Hector Hernández Isaiah [id number] Hector Isaiah 11/26/2022 1 [place] Hector Perezonte [id number] Hector Isaiah 06/06/2023 2 [place] Hector Hernández Isaiah [id number] Hector Isaiah 06/06/2023 1 [place] Hector Hernándze Isaiah [id number] Hector Isaiah 08/17/2023 2 [place] Hector Hernández Isaiah [id number] Hector Isaiah 08/17/2023 1 [place] Hector Edgar Isaiah [id number] Hector Isaiah 10/19/2023 2 [place] Hector Hernández Isaiah [id number] Hector Isaiah 10/19/2023 1 [place] Hector Edgar Isaiah [id number] Hector Isaiah 02/08/2024 2 [place] Hector Edgar Isaiah [id number] Hector Isaiah 02/08/2024 1 [place] Hector Colon [id number] Hector Colon Notes Date Note Type Note Provider Name and Address Organization Details Recorded Time 3 text/htm l here for rechk overall is doing okrelates that he is not having cpno sob unless exert uses cpapbowels are goodbladder okarthritis is what is kicking his ass and state s he is quite frustrated with this at times Garry Graves DO [address] [place], [address], [facility] 11/26/2022 10:52:15 4 text/htm l Pre-OpReported bypatient.Surgery to be Performed:carpal tunnel surgery (bilaterally) and both elbows (bi[place] [facility] Severity:severe Risk Factorsno cognitive impairment; no functional [...] Support:adequate assistance at home () cleared by correctional counselor/case manager and fire crew worker SAI PIERCE [address] [place], [address], [facility] 06/06/2023 10:36:13 4 text/htm l has had long medical problems over past [...] mtx should be restarted Garry Graves DO [address] [place], [address], [facility] 08/17/2023 11:35:26 4 text/htm l Care Management - HypertensionReported bypatient.Self Care:not under [...] well controlled no bleeding Garry Graves DO [address] [place], [address], [facility] 10/19/2023 14:23:32 4 text/htm l here for rechk and is doing jessica MTX and recent lab shows ongoing anemia creat is still ok overallarhtritis is bothering himcrohns is quiet ]'gout has been the issue uric acid is 7.2 Garry Graves DO [address] [place], [address], [facility] 02/09/2024 23:02:06
--- OUTSIDE RECORDS SUMMARY | 2024-05-02 12:33 | XMS_ITS ---
Author Organization [facility] Address [address] [place] [address] Care Team Providers Care Sales Agent Casualty Insurance Name Role Phone Garry Graves MD Primary Care Provider Daisy George Unavailable [phone] Solomon Ventura [phone] REASON FOR VISIT Rx Medications Medication SIG (Take, Route, Fr equency, Duration) Notes Start Date End Date Status [facility] as directed 09/29/2023 Active Encounters Encounter Location Date Provider Diagnosis [address] [address] 09/28/2023 Solomon Ventura Plan Of Treatment Medication Medication Name Sig Start Date Stop Date Notes [facility] as directed 09/29/2023 Next Appt Details Provider Name:Daisy collado, 08/30/2024 11:15:00 AM, [address] [facility], [place], [address], Progress Notes * Hector COLON KDOB:[birth year] (68 yo M)Acc No.[id number]:09/28/2023 Patient:?Hector Colon :1955???Age:68 Y???Sex:Male Address:[address], [place], [address] * Refills? Start [facility], as directed * true * Date:? Generated for Printi ng/Faxing/eTransmitting on:?05/02/2024 12:32 PM EST
== END 2024-05-02 12:31 | disposition home or self-care (01) ==
LOC: HO.HAP 12:30
PROVIDERS: Visit Provider Internal Medicine
DX: Z13.89 Encounter for screening for other disorder (principal)

== ENCOUNTER 2024-05-02 12:53 | Outpatient (REF) | payer SELFPAY | END 2024-05-02 12:54 | disposition home or self-care (01) | LOC: HO.HAP 12:53 | PROVIDERS: Visit Provider Internal Medicine | DX: Z46.1 Encounter for fitting and adjustment of hearing aid (principal); H90.3 Sensorineural hearing loss, bilateral | CPT/HCPCS: V5267 ==

== ENCOUNTER 2024-05-10 10:16 | Outpatient (AMB) | payer MEDICARE, MEDICAID, SELFPAY ==
--- OUTSIDE RECORDS SUMMARY | 2024-05-10 10:19 | XMS_ITS ---
Author Organization [facility] Address [address] [place] [id number] Care Team Providers [employer] Advisor Name Role Phone Garry Graves MD Primary Care Provider Daisy George Unavailable [phone] Solomon Ventura [phone] REASON FOR VISIT Rx Medications Medication SIG (Take, Route, Fr equency, Duration) Notes Start Date End Date Status Custom Orthotics as directed 09/29/2023 Active Encounters Encounter Location Date Provider Diagnosis [address] [address] 09/28/2023 Solomon Ventura Plan Of Treatment Medication Medication Name Sig Start Date Stop Date Notes Custom Orthotics as directed 09/29/2023 Next Appt Details Provider Name:Daisy collado, 08/30/2024 11:15:00 AM, [address] [place], [address], Progress Notes * Hector COLON KDOB:[birth year] (68 yo M)Acc No.[id number]:09/28/2023 Patient:?Hector Colon :1955???Age:68 Y???Sex:Male Address:[address], [place], [address] * Refills? Start Custom Orthotics, as directed * true * Date:? Generated for Printi ng/Faxing/eTransmitting on:?05/10/2024 10:19 AM EST
--- OUTSIDE RECORDS SUMMARY | 2024-05-10 10:20 | XMS_ITS ---
[facility] Address [address] [place] [address] Care Team Providers Care Valve Setter Name Role Phone Garry Graves MD Primary Care Provider Daisy George Unavailable [phone] Solomon Ventura Unavailable [phone] Allergies Allergen (clinical drug ingredient) Drug/Non Drug [...] Problem Status W/U Status Risk Notes Problem [id number] Venous insufficiency (I87.2) Active confirmed Vital Signs Height 5 ft 11 in in 08/25/2023 Weight 334 lbs 08/25/2023 BMI 46.58 kg/m2 08/25/2023 Encounters Encounter Location Date Provider Diagnosis [facility] [address] [place] [address] 08/25/2023 Solomon Ventura Plantar fascial fibromatosis M72.2 [...] Provider Name:Daisy collado, 08/30/2024 11:15:00 AM, [address] [place], [address], Progress Notes * Hector COLON KDOB:[birth year] (68 yo M)Acc No.[id number]:08/25/2023 Progress Note Patient:?Hector Colon Edgar Provider:?Solomon Ventura DPM :1955???Age:68 Y???Sex:Male Narciso e:08/25/2023 Address:[address] [place], [place] [id number] Pcp:Garry Graves MD Subjective: * Chief Complaints: * ???Last Visit PCP 08/17/23 * HPI: ???Heel pain:?Nature:?aching.?Location:?B/L, proximal plantar aspect of heel--left more severe than right.?Duration:?several years .?Onset/Cause:?unknown.?Course:?improved with use of upright walker over past sev months.?Aggrevated:?standing, walking.?Treatments:?rest, change in shoes, innersoles, corticosteriod injection; custom orthoses and aleve; rest helps the most; methotrexate for tx of arthritis; Dr. Balderrama--[facility] [place], [place] rheum.?Skin problems:?Nature:?dryness.?Location:?Heel/Rearfoot, B/L .?Duration:?several weeks.?Onset/Cause:?unknown.?Treatments:?medication ( Eucerin).?Severity/Quality:?moderate.?Foot [...] Exercise. ?Marital status: . ?Occupation: Retired-[employer]. * Medications:?TakingAllopurin ol 100 MG Tablet [...] DPM Date:? 024 Generated for Capo raman/Davidson/Agathaitting on:?05/10/2024 10:19 AM EST History and Physical Notes * [...] most; methotrexate for tx of arthritis; Dr. Balderrama--[facility] [place], [place] rheum Skin problems Nature: dryness Location: Heel/Rearfoot, [...]
--- OUTSIDE RECORDS SUMMARY | 2024-05-10 10:20 | XMS_ITS | Data Portability ---
Author Organization [facility] Home Service Address [address] [place] [address] Assessment Encounter Date Assessment Date Assessment LastModified by Organization Details LastModified Time 11/26/2022 11/26/20[place] [id number] [place] [id number] (MEMBERSHIP COUNSELOR) MDM MODERATE MUST MEET 2 OUT OF [...] COVERED Not available 11/26/2022 10:48:44 08/17/2023 08/17/2023 [id number] [place] [id number] (MEMBERSHIP COUNSELOR) MDM MODERATE MUST MEET 2 OUT OF [...] COVERED Not available 08/17/2023 11:35:12 10/19/2023 10/19/2023 [id number] [place] [id number] (MEMBERSHIP COUNSELOR) MDM HIGH MUST MEET 2 OUT OF [...] reduce health risks and promote healthy living. [email or web address] Not available 02/08/2024 16:33:32 Plan of Treatment Reminders Order Date Submit Date Provider Last Modified By Organization Details Last Modified Time Details Appointments None recorded. Lab vitamin D, 25-hydroxy , total, serum 2022 023 [facility], [address] [place] [address], [address], 3 12:56:38 vitamin B12, serum 2022 023 NELA [facility], [address] [place] [address], [address], 3 12:56:38 vitamin B1 (thiamine) , serum 2022 023 [facility], [address] [place] [address], [address], 3 11:16:12 folate, serum 2022 023 [employer] [facility], [address] [place], [address], 3 12:56:38 CMP, serum or plasma 2022 023 ATHENAFAX [facility], [address] [place], [address], 10:55:22 pro BNP (pro B-type natriureti c peptide), serum or plasma 2022 023 NELA [facility], [address] [place], [address], 12:56:38 CBC 2022 023 ATHENAX [facility], [address] [place], [address], 10:55:21 Referral None recorded. Procedures None recorded. Surgeries None recorded. Imaging None recorded. Medication Orders amoxicilli n 875 mg-potassi um clavulanat e 125 mg tablet 2023 024 [address] [id number], [address], [place], [id number], 13:55:23 Patient TargetsNo targets recorded. Patient Instructions Encounter Date Encounter Id Patient Instructions Last Modified By Organization Details Last Modified Time 08/17/2023 [id number] pulse oximetry* Not available 08/17/2023 11:13:27 10/19/2023 [id number] When You Want to Lose Weight: Care Instructions Not available 10/19/2023 14:23:11 crohn's disease: care instructions Not available 10/19/2023 14:23:11 heart failure: care instructions Not available 10/19/2023 14:23:11 learning about heart failure Not available 10/19/2023 14:23:11 02/08/2024 [id number] pulse oximetry* Not available 02/09/2024 23:02:02 sleep apnea: car e instructions Not available 02/09/2024 23:02:02 Reason for Referral None Reported. Results Created Date Observation Date Name Description Value Unit Range Abnormal Flag Note LastModifiedBy Organization Detail LastModifiedTime 08/17/19 24 08/17/2023 pulse oxime try* Result 97 Not Available [facility] [address] [facility] [address], [place], [address], 08/15/2023 14:00:34 02/08/20 24 02/08/2024 pulse oxime try* Result 97 Not Available [facility] [address] [facility] [address], [place], [address], 02/06/2024 12:00:52 02/01/20 23 01/28/2023 MRI, cervi nia spine , w/o contr ast No observ ation record ed. [facility] [address] [address], [place], [address], 01/31/2023 15:06:36 06/28/19 24 06/24/2023 US, echoc ardio gram No observ ation record ed. [facility], [place], [address], 08/17/2023 10:58:21 Result Notes None recorded. Problems Name Problem SNOMED Code Status Onset Date Resolution Date Notes Provider Name and Address Organization Details Recorded Time Crohn's disease 90960782 Active 2019 Garry Graves DO [address] [facility], [place], [address], [place] [facility] 0 11:51:44 Degenerati on of lumbar interverte bral disc 56759695 Active 2020 Garry Graves DO [address] [facility], [place], [address], [place] [facility] 10:47:53 Osteoarthr itis 365160543 Active 2021 Garry Graves, DO [address] [place] [address], [address], [facility] 2 15:14:41 Degenerati ve joint disease of hand 23884470 Active 2022 SAI PIERCE [address] [place] [address], [address], [facility] 3 15:28:27 COVID-19 233662027 Active 2023 Garry YvonneRory Graves, DO [address] [place] [address], [address], [facility] 4 13:31:54 Chronic tophaceous gout 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 Active 2023 Garry Graves, DO [address] [place] [address], [address], [facility] 4 11:11:39 Acute right otitis media 429404813 Active 2023 Garry Graves, DO [address] [place] [address], [address], [facility] 4 11:34:54 Psoriatic arthritis 672391278 Active 2023 Garry Graves, DO [address] [place] [address], [address], [facility] 4 14:16:12 Morbid obesity 328224214 Active 2017 Susan burgess [facility] 8 08:45:56 Congestive heart failure 92657591 Active 2017 Susan burgess [facility] 8 08:45:59 Obstructiv e sleep apnea syndrome 00277250 Active 2017 Susan burgess [facility] 8 08:46:05 Hypertensi ve disorder 79235331 Active 2017 Susan burgess [facility] Medicine 8 08:46:10 Problem Notes None recorded. Procedures Surgical History Date Name Laterality Status Provider Name and Address Organization Details Recorded Time 019 Corticosteroid Injection completed Garry RussellRory Lópezalexander, [address] [place], [address], [facility] 01/08/2019 10:11:59 Imaging Results Imaging Date Name Status LastModified by Organization Details LastModified Time 01/28/2023 MRI, cervical spine, w/o contrast completed [facility] [address] [facility] [address], [place], [address], 01/31/2023 15:06:36 06/24/2023 US, echocardiogram completed [facility] [address] [place] [address] [address], [place], [address], 08/17/2023 10:58:21 Procedure Notes None recorded. Medical Equipment None Reported. Allergies Allergen ID Allergen Name Allergen Category Reaction Reaction Severity Criticality Documentation Date Start Date Code Code System Note Provider Name and Address Organization Details Recorded Time 3160 meloxicam medicatio n diarrhea severe Not available 11/20/20182018 72818 RxNorm Garry Graves DO [address] [place], [address], [facility] 9 17:32:39 4698 tramadol medicatio n dizziness moderate Not available 01/06/2021 31319 RxNorm SAI PIERCE [address] [place], [address], [facility] 11:05:59 Medications Name Sig [...] Available Not Available pantoprazol e 40 mg tablet,bratolo yed release TAKE 1 TABLET BY MOUTH [...] Updated DateTime 3 177.8 cm 46.8 kg/m2 827907. 11 g 66 /min 97 % 97 % 140 mm[Hg] 90 mm[Hg] Jeane Dietrich [facility] 3 10:29:37 Date Recorded Body height Body mass index (BMI) Body weight Heart rate Oxygen saturation Oxygen saturation in Arterial blood by Pulse oximetry Systolic blood pressure Diastolic blood pressure Provider Name and Address Organization Details Last Updated DateTime 4 177.8 cm 45.3 kg/m2 832487. 19 g 67 /min 97 % 97 % 140 mm[Hg] 70 mm[Hg] Jeane Peralta [facility] 4 10:19:26 Date Recorded Body height Body mass index (BMI) Body weight Heart rate Oxygen saturation Oxygen saturation in Arterial blood by Pulse oximetry Systolic blood pressure Diastolic blood pressure Provider Name and Address Organization Details Last Updated DateTime 4 177.8 cm 44.9 kg/m2 088486. 41 g 55 /min 97 % 97 % 140 mm[Hg] 60 mm[Hg] Jeane Peralta [facility] 4 10:44:51 Date Recorded Body height Body mass index (BMI) Body weight Heart rate Respiratory rate Oxygen saturation Oxygen saturation in Arterial blood by Pulse oximetry Systolic blood pressure Diastolic blood pressure Provider Name and Address Organization Details Last Updated DateTime 4 177.8 cm 44.9 kg/m2 295345. 41 g 52 /min 18 /min 99 % 99 % 132 mm[Hg] 66 mm[Hg] João Joyner [facility] 4 13:57:16 Date Recorded Body height Body mass index (BMI) Body weight Heart rate Oxygen saturation Oxygen saturation in Arterial blood by Pulse oximetry Systolic blood pressure Diastolic blood pressure Systolic blood pressure Diastolic blood pressure Provider Name and Address Organization Details Last Updated DateTime 4 177.8 cm 44.9 kg/m2 225389. 41 g 54 /min 97 % 97 % 140 mm[Hg] 70 mm[Hg] 132 mm[Hg] 70 mm[Hg] [facility] 4 16:35:02 Social History Question Answer Notes LastModified by Organizat ion Details LastModified Time Tobacco Smoking Status Former Smoker Not Available [facility] 03/18/2020 03:36:24 What Was The Date Of Your Most Recent Tobacco Screening? 02/08/2024 [email or web address] Information not available 02/08/2024 Do You Or [...] pneumococcal polysaccharide PPV23 0 [facility] 11:26:53 COVID-19, mRNA, LNP-S, PF, 30 mcg/0.3 mL dose 1 completed [facility] 11/25/2020 11:27:04 COVID-19, mRNA, LNP-S, PF, 30 mcg/0.3 mL dose 1 completed Nathalie Balicki [facility] 11/25/2020 11:27:11 Hep B, unspecified formulation 0 completed Nathalie Balicki [facility] 11/25/2020 11:27:24 Hep B, unspecified formulation 0 completed Nathalie Balicki [facility] 11/25/2020 11:27:31 Hep B, unspecified formulation 1 completed Nathalie Balicki [facility] 11/25/2020 11:27:37 Hep A, unspecified formulation 0 completed Nathalie Balicki [facility] 11/25/2020 11:27:57 Hep A, unspecified formulation 0 completed [facility] 11/25/2020 11:28:04 Hep A, unspecified formulation 1 completed [facility] 11/25/2020 11:28:12 COVID-19, mRNA, LNP-S, PF, 30 mcg/0.3 mL dose 1 completed Susan Florez [facility] 01/06/2021 09:14:20 Influenza, split virus, quadrivalent, preservative 1 completed Susan burgess [facility] 08/24/2021 10:36:11 Tdap 9 completed Susan burgess [facility] 01/17/2019 08:11:56 Past Encounters Encounter ID Performer Location Encounter Start Date Encounter Closed Date Diagnosis/Indication Diagnosis SNOMED-CT Code Diagnosis ICD10 Code [id number] Garry Gravse [facility] Internal [address] [address] 09/13/2017 10:56:44 09/13/2017 16:01:17 Hypertensive disorder 52921795 I10 Congestive heart failure 58132634 I50.9 Tenosynovi tis of wrist 463151897 M65.839 [id number] Garry Graves [address] [address] 01/25/2018 09:33:47 01/25/2018 10:14:56 Morbid obesity 155959423 E66.01 Hypertensive disorder 38 002374 I10 Congestive heart failure 62874095 I50.9 Obstructiv e sleep apnea syndrome 15803273 G47.33 Screening for cardiovascular system disease 266212979 Z13.6 Edema of l ower extremity 251410206 R60.0 [id number] Mary Jo Washington NP, [facility] [address] [address] 05/23/2018 10:33:27 05/23/2018 16:49:35 Morbid obesity 721042825 E66.01 Acute bronchitis 9668539 2 J20.9 Hypertensive disorder 38 418923 I10 Obstructiv e sleep apnea syndrome 42747485 G47.33 [id number] Garry Graves [facility] Internal [address] [address] 08/02/2018 08:56:16 08/02/2018 12:49:34 Obstructive sleep apnea syndrome 26599077 G47.33 Hypertensive disorder 38 385530 I10 Congestive heart failure 79882554 I50.9 Morbid obesity 871813610 E66.01 Wrist joint pain 0034558 09 M25.539 [id number] Garry Graves [facility] [address] [facility] [address] 11/20/2018 16:16:38 11/20/2018 17:38:10 Adverse reaction to drug 41049249 T50.905A Hypertensive disorder 38 993316 I10 Congestive heart failure 61101802 I50.9 [id number] August IKE Hernandez [facility] [address] [facility], [place] [address] 12/27/2018 10:47:48 12/27/2018 13:47:31 Body mass index 40+ - severely obese 921535255 Z68.42 Hypertensive disorder 38 160929 I10 Obstructiv e sleep apnea syndrome 34956771 G47.33 Knee pain 41702172 M25.5 69 [id number] Garry Graves [facility] Medicine [address] [place] [address] [place] [address] 01/08/2019 09:49:46 01/08/2019 10:20:43 Osteoarthritis of knee 436165784 M17.9 [id number] Garry Graves [facility] [address] [place] [address] [place] [address] 02/07/2019 08:53:44 02/07/2019 10:48:03 Hypertensive disorder 44784722 I10 Congestive heart failure 01749928 I50.9 Chronic diarrhea 5808758 09 K52.9 Morbid obesity 511630267 E66.01 [id number] Garry Graves [facility] [address] [place] [address], [place] [address] 05/07/2019 10:23:47 05/07/2019 10:53:59 Hypertensive disorder 31789700 I10 Congestive heart failure 65507191 I50.9 Obstructiv e sleep apnea syndrome 41898877 G47.33 Diarrhea 47104204 R19.7 Crohn's disease 94423216 K50.90 [id number] Garry Graves [facility] [address] [place] [address] [place] [address] 08/17/2019 09:29:29 08/17/2019 12:16:51 Congestive heart failure 52341843 I50.9 Hypertensive disorder 38 177545 I10 Obstructiv e sleep apnea syndrome 81702288 G47.33 Microcytic anemia 463268 007 D50.9 [id number] Garry Graves [facility] [address] [facility] [place] [address] 12/07/2019 08:58:03 12/07/2019 11:52:09 Congestive heart failure 86927690 I50.9 Crohn's disease 37891084 K50.90 Hypertensive disorder 38 097635 I10 Obstructiv e sleep apnea syndrome 21203618 G47.33 [id number] Garry Graves [facility] [address] [facility] [place] [address] 04/28/2020 08:45:16 04/28/2020 10:57:40 Congestive heart failure 99583931 I50.9 Hypertensive disorder 38 846335 I10 Obstructiv e sleep apnea syndrome 86803058 G47.33 Morbid obesity 665555029 E66.01 Crohn's disease 94606971 K50.90 [id number] Garry Graves [facility] [address] [facility] [place] [address] 11/28/2020 11:06:02 11/28/2020 12:11:18 Hypertensive disorder 55241834 I10 Congestive heart failure 96767792 I50.9 Obstructiv e sleep apnea syndrome 19969078 G47.33 Hepatitis C screening 41 0364545 Z11.59 Morbid obesity 424194625 E66.01 Crohn's disease 46189507 K50.90 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 7277505985 106 K50.018 [id number] SAI PIERCE [facility] [address] [place] [address] [place] [address] 12/10/2020 09:52:05 12/10/2020 11:56:49 Neck pain 71771563 M54.2 Torticollis 10909485 M43 .6 [id number] SAI PIERCE [facility] [address] [place] [address] [address] [place] [facility] [place] [address] 01/06/2021 09:05:10 01/06/2021 12:01:51 Epidermoid cyst of skin 637322411 L72.3 Degenerati on of cervical intervertebral disc 41281839 M50.30 [id number] SAI PIERCE [facility] [address] [place] [address] 03/16/2021 11:22:42 03/16/2021 12:41:23 Low back pain 520269659 M54.59 Abnormal gait 99974974 R 26.9 Bursitis o f olecranon of right elbow 8854095637 03846 M70.21 [id number] Garry Graves [facility] Medicine [address] [place] [address] 04/20/2021 10:25:43 04/20/2021 12:42:30 Hypertensive disorder 73547330 I10 Congestive heart failure 98229633 I50.9 Obstructiv e sleep apnea syndrome 34105547 G47.33 Crohn's disease 87832241 K50.90 Degenerati on of lumbar intervertebral disc 71515227 M51.36 Hearing loss 51754280 H9 0.3 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 3781585040 105 M48.02 [id number] Garry Graves [facility] Medicine [address] [place] [address] 08/24/2021 10:25:17 08/24/2021 11:40:12 Hypertensive disorder 66570227 I10 Congestive heart failure 78732577 I50.9 Morbid obesity 634371056 E66.01 Crohn's disease 16504822 K50.90 [id number] Garry Graves [facility] Medicine [address] [place] [address] 12/11/2021 14:47:03 12/11/2021 16:18:04 Hypertensive disorder 37417089 I10 Depression screening 171 555848 Z13.31 Crohn's disease 16198281 K50.90 Congestive heart failure 35969286 I50.9 Osteoarthritis 332116021 M19.90 [id number] Garry Graves [facility] Medicine [address] [place], [place] [address] [address] 04/30/2022 10:54:24 04/30/2022 15:17:59 Congestive heart failure 65330492 I50.9 Hypertensive disorder 38 555974 I10 Osteoarthritis 558885147 M19.90 Obstructiv e sleep apnea syndrome 17840732 G47.33 [id number] Garry Graves [facility] Medicine [address] [place] [address] [place] [address] 11/26/2022 10:17:44 11/26/2022 11:32:27 Congestive heart failure 86645227 I50.9 Hypertensive disorder 38 937034 I10 Morbid obesity 164343026 E66.01 Crohn's disease 56559603 K50.90 [id number] CARMELINA URBANO [facility] [address] [place] [address] [place] [address] 06/06/2023 10:12:51 06/06/2023 10:41:44 Morbid obesity 967640945 E66.01 Hypertensive disorder 38 025701 I10 Obstructiv e sleep apnea syndrome 71762246 G47.33 Congestive heart failure 61711738 I50.89 Pre-surger y evaluation 387867726 Z01.818 [id number] Garry Graves [facility] Medicine [address] [place] [address] [place] [address] 08/17/2023 10:37:50 08/17/2023 11:36:58 Crohn's disease 98819009 K50.90 Congestive heart failure 72460217 I50.89 Hypertensive disorder 38 363912 I10 Morbid obesity 555463203 E66.01 Chronic to phaceous gout 88987633 M1A.9XX1 Acute righ t otitis media 434335567 H66.91 [id number] Garry Graves [facility] Medicine [address] [place], [place] [address] [address] 10/19/2023 13:46:51 10/19/2023 14:34:25 Acute right otitis media 559232563 H66.91 Depression screening 171 103614 Z13.31 Hypertensive disorder 38 053470 I10 Degenerati on of lumbar intervertebral disc 97595889 M51.36 Congestive heart failure 95596855 I50.89 Morbid obesity 925089253 E66.01 Psoriatic arthritis 1563 26894 L40.50 Crohn's disease 24087587 K50.90 [id number] DO [facility] [address] [facility] [address] 02/08/2024 16:03:32 02/10/2024 08:57:21 Congestive heart failure 28214165 I50.89 Psoriatic arthritis 1563 76249 L40.50 Obstructiv e sleep apnea syndrome 69996125 G47.33 Health Concerns Section Related Observation LastModified by Organization Detai ls LastModified Time None Recorded Concern Status LastModified by Organization Details LastModified Time None Recorded Advance Directives Directive None Recorded Payers Encounter Date Sequence Insurance Name Policy Number Policy Damon Covered Member ID Damon Member ID Guarantor Name 11/26/2022 2 [place] Hector Hernández Isaiah [id number] Hector Isaiah 11/26/2022 1 [place] Hector Perezonte [id number] Hector Isaiah 06/06/2023 2 [place] Hector Hernández Isaiah [id number] Hector Isaiah 06/06/2023 1 [place] Hector Hernández Isaiah [id number] Hector Isaiah 08/17/2023 2 [place] Hector Hernández Isaiah [id number] Hector Isaiah 08/17/2023 1 [place] Hector Edgar Isaiah [id number] Hector Isaiah 10/19/2023 2 [place] Hector Hernández Isaiah [id number] Hector Isaiah 10/19/2023 1 [place] Hector Edgar Isaiah [id number] Hector Isaiah 02/08/2024 2 [place] Hector Edgar Isaiah [id number] Hector Isaiah 02/08/2024 1 [place] Hector Colon [id number] Hector Colon Notes Date Note Type Note Provider Name and Address Organization Details Recorded Time 3 text/htm l here for rechk overall is doing okrelates that he is not having cpno sob unless exert uses cpapbowels are goodbladder okarthritis is what is kicking his ass and state s he is quite frustrated with this at times Garry Graves DO [address] [place], [address], [facility] 11/26/2022 10:52:15 4 text/htm l Pre-OpReported bypatient.Surgery to be Performed:carpal tunnel surgery (bilaterally) and both elbows (biopsy) with Dr. Colin at [facility] Severity:severe Risk Factorsno cognitive impairment; no functional [...] Support:adequate assistance at home () cleared by access nurse and guest relations officer SAI PIERCE [address] [place], [address], [facility] 06/06/2023 10:36:13 4 text/htm l [...] should be restarted Garry Graves DO [address] [place], [address], [facility] 08/17/2023 11:35:26 4 text/htm l [...] controlled no bleeding Garry Graves DO [address] [place], [address], [facility] 10/19/2023 14:23:32 4 text/htm l here for rechk and is doing jessica MTX and recent lab shows ongoing anemia creat is still ok overallarhtritis is bothering himcrohns is quiet ]'gout has been the issue uric acid is 7.2 Garry Graves DO [address] [place], [address], [facility] 02/09/2024 23:02:06
--- OUTSIDE RECORDS SUMMARY | 2024-05-10 10:20 | XMS_ITS | Patient Health Record ---
Author Organization [facility] [place] Address [address] [place] [address] Care Team Providers Care Nuclear Medicine Chief Technologist Name Role Phone Star SEGURA, Garry Primary Care Provider Daisy George Unavailable [phone] Lorenzo Solomon Unavailable [phone] Allergies Allergen (clinical drug ingredient) Drug/Non Drug [...] primary osteoarthritis of the ankle and/or foot (347399842) Primary osteoarthritis, left ankle and foot (M19.072) Active confirmed Problem Plantar fascial fibromatosis (17449226) Plantar 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) Active confirmed Problem Acquired hammer toe of right foot (8462077498694920) Other hammer toe(s) (acquired), right foot (M20.41) Active confirmed Problem Acquired hammer toe of left foot (2953100880095076) Other hammer toe(s) (acquired), left foot (M20.42) Active confirmed Problem 76615249 Venous insufficiency (I87.2) Active confirmed Vital Signs Height 5 ft 11 in in 08/25/2023 Weight 334 lbs 08/25/2023 BMI 46.58 kg/m2 08/25/2023 Encounters Encounter Location Date Provider Diagnosis [address] [address] 08/25/2023 Solomon Ventura Plantar fascial fibromatosis M72.2 [...] Localized edema R60.0 and Venous insufficiency I87.2 [facility] [address] [address] 09/28/2023 Solomon Ventura Assessments Encounter Date Diagnosis [...] Details Provider Name:Daisy collado, 08/30/2024 11:15:00 AM, [address] [place] [address], [phone], Insurance Providers Payer Name Payer Address Payer Phone Subscriber Number Group Number Insured Name Patient Relationship to Insured Coverage Start Date Coverage End Date Medicare National [employer] S[employer] [address] [place] [address] [id number] Hector Colon Self - patient is the insured Medical (General) History Medical History History ICD Code transfusions diverticulosis chicken pox back, hip, knee pain chron's Surgical History Surgery Date(Month/Year) colon/intestinal surgery heart surgery unspecified kymberly
--- NOTE | 2024-05-10 10:23 | HO.NEPHOV ---
Vital Signs 05/10/24 10:25 Height 5 ft 11 in Weight 325 lb 4 oz BMI 45.4 BP 126/58 L Blood Pressure Location Rt brachial Position Sitting Pulse 60 Pulse Source Pulse Oximeter Pulse Oximetry (%) 98 Oxygen Delivery Method Room Air Intake Visit Reasons: CKD/ Conf Wheel Molder Required: No Accompanied by: Self / Same As Patient Allergies tramadol Allergy (Mild, Verified 05/10/24 10:27) Dizziness Medication List - Last Reconciled 05/10/24 by Olegario Diggs MD acetaminophen ER (Tylenol Arthritis Pain) 1,300 mg PO Q8H allopurinol 200 mg PO DAILY allopurinol 300 mg PO DAILY amlodipine 10 mg PO QAM apixaban (Eliquis) 5 mg PO BID ferrous sulfate 324 mg PO DAILY folic acid 1 mg PO DAILY furosemide 80 mg PO QAM insulin syringe-needle U-100 (BD Insulin Syringe) Use once weekly with methotrexate losartan 100 mg PO QAM methotrexate sodium 50 mg subcut QWEEK multivitamin 1 tab PO DAILY pantoprazole 40 mg PO QAM yaqcjspm-jziv-ceyyx-oreg-capry 100 mg-150 mg- 50 mg-150 mg 1 cap PO DAILY vedolizumab (Entyvio) 300 mg IV Q8W Do you need a note to return to daycare/school/sports/work: No HPI Comments Details: Sheyla is a pleasant 68-year-old man with a history of longstanding hypertension and Crohn's disease who was found to have recent elevation serum creatinine. Back in 2022 serum creatinine was around 1.05-1.17 mg/dL. Since June of 2023 there has been a gradual increase in serum creatinine and the recent creatinine was 1.55 as of 04/10/2024. He is on Lasix 80 mg once a day. There has been no recent change in antihypertensive medications. He has a history of Crohn's disease. 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 He is currently on methotrexate. History of gout and he is on allopurinol. History of restrictive lung disease History of obstructive sleep apnea on CPAP. History of moderate right heart failure by echocardiogram Does not take any NSAIDs or other nephrotoxic agents. [facility] Medical History COVID-19 Claustrophobia Arthritis Atrial septal defect Atrial fibrillation Gouty tophi of joint Restrictive lung disease Cervical spondylosis Epidermal cyst Essential hypertension Chronic right heart failure Crohn's disease TIFFANY on CPAP Morbid obesity Surgical History Hx of carpal tunnel repair History of colon resection History of excision of epidermal inclusion cyst (~03/27/21) History of esophagogastroduodenoscopy (EGD) Status post surgical atrial septal defect closure History of colonoscopy Family History Father Hx of Crohn's disease Cancer Mother Hx of type 2 diabetes mellitus Social History Are you a primary caregiver services home to a significant other at home: No Do you presently have visiting nurse or other home services: No Alcohol intake: never Comment: counts correct Patient Tobacco Use Status: Former Tobacco user Tobacco use type: Cigarette Years Smoked: 10 +/- Current occupational status: retired Current occupation: right hand dominant Review of Systems Const Denies fever(s) and Denies weight loss Card Denies chest pain Resp Denies cough and Denies hemoptysis GI Denies abdominal pain, Denies diarrhea and Denies nausea Musc Denies back pain Neuro Denies focal weakness Physical Exam Vital Signs: Last Vital Signs Pulse 60 05/10/24 10:25 BP 126/58 L 05/10/24 10:25 Pulse Ox 98 05/10/24 10:25 Oxygen Delivery Method Room Air 05/10/24 10:25 BMI result Body Mass Index 45.4 Const General: comfortable; No acute distress Orientation/consciousness: patient oriented x3 Eyes General: appearance normal, both eyes and all related structures Visual Vasquez: normal visual vasquez by confrontation Neck Neck: Yes supple and Yes no JVD Resp Effort & Inspection: normal respiratory effort and respiratory effort not decreased Auscultation: rhonchi Cardio Palpation: no palpable S3 and no palpable S4 Heart sounds: no rubs GI Inspection: Yes normal to inspection Palpation (GI): Soft to palpation Percussion: Yes normal to percussion Auscultation: normal bowel sounds General: Yes no CVA tenderness Back/Spine/Pelvis Back: no CVA tenderness Skin General skin exam: no petechiae and no purpura Neuro General: patient oriented x3 and no focal motor deficits Extrem General: No clubbing and Yes edema (Trach) Results Reviewed Results Reviewed: ECHO Jun 2023 - Grossly normal LVEF. - The visually estimated ejection fraction is between 60-65%. - There is mild to moderately decreased right ventricular systolic function. - No obvious valvular pathology seen on this study. Nephrology Results: Hgb 10.6 g/dl (14.0-18.0) L 04/10/24 WBC 4.7 X10*3/uL (4.8-10.8) L 04/10/24 Plt Count 180 X10*3/uL (160-400) 04/10/24 Sodium 139 mmol/L (135-145) 04/10/24 Potassium 4.1 mmol/L (3.3-5.1) 04/10/24 Chloride 105 mmol/L (96-108) 04/10/24 Carbon Dioxide 23 mmol/L (22-29) 04/10/24 BUN 35 mg/dL (9-16) H 04/10/24 Creatinine 1.55 mg/dL (0.5-1.4) H 04/10/24 Calcium 9.8 mg/dL (8.4-10.2) 04/10/24 Assessment & Plan Assessment & Plan (1) CKD (chronic kidney disease): Code(s): N18.9 - Chronic kidney disease, unspecified Category: Medical Qualifiers: Chronic kidney disease stage: stage 3 (moderate) Chronic kidney disease stage 3 subtype: stage 3a (GFR 45-59) Qualified Code(s): N18.31 - Chronic kidney disease, stage 3a Plan 68-year-old man with chronic kidney disease and superimposed JOSE GUADALUPE in the setting of longstanding hypertension, Crohn's disease, obesity. Obstructive sleep apnea and right heart failure. Acute kidney injury is most likely due to hypoperfusion. However obstructive uropathy should be ruled out. In the past urine studies were bland and therefore glomerular disease Some cases of allergic interstitial nephritis has been reported with Entyvio We shall rule that out I have initiated a workup for CKD including renal ultrasonogram and basic urine studies. Including 24 hour urine collection Based on this we might have to lower the diuretics and see if any improvement in the renal function. Further workup will be based on the outcome of the above baseline investigations. I have reassured him and answered all his questions Orders: Orders Basic Metabolic Panel Today Olegario Diggs MD N18.31 - Chronic kidney disease, stage 3a UA and rflx microscopic Today Olegario Diggs MD N18.31 - Chronic kidney disease, stage 3a Total Protein Urine Random Today Olegario Diggs MD N18.31 - Chronic kidney disease, stage 3a Creatinine Urine Today Olegario Diggs MD N18.31 - Chronic kidney disease, stage 3a Creatinine Clearance Urine 24U Today Olegario Diggs MD N18.31 - Chronic kidney disease, stage 3a US renal BI Today Olegario Diggs MD I10 - Essential (primary) hypertension, N18.31 - Chronic kidney disease, stage 3a Medications: Changed From methotrexate sodium 15 mg (0.6 mL) subcut QWEEK 12 mL 2RF To methotrexate sodium 50 mg subcut QWEEK Viral Balderrama MD Coding Level of Care Code New Pt Level 5 (59910) Diagnoses Stage 3a chronic kidney disease N18.31 Chronic kidney disease stage: stage 3 (moderate) Chronic kidney disease stage 3 subtype: stage 3a (GFR 45-59)
[2024-05-10 10:25] VITALS: BP 126/58; PULSE 60; O2SAT 98; BMI 45.4
== END 2024-05-10 10:57 | disposition home or self-care (01) ==
PROVIDERS: PCP Internal Medicine; Visit Provider Internal Medicine Hypertension Specialist
DX: I12.9 Hypertensive chronic kidney disease with stage 1 through stage 4 chronic kidney disease, or unspecified chronic kidney disease (principal); N18.31 Chronic kidney disease, stage 3a
CPT/HCPCS: 99204

== ENCOUNTER → 2024-05-10 10:16 | Outpatient (BNVA) | payer MEDICARE, MEDICAID, SELFPAY | PROVIDERS: PCP Internal Medicine; Visit Provider Internal Medicine Hypertension Specialist | DX: I12.9 Hypertensive chronic kidney disease with stage 1 through stage 4 chronic kidney disease, or unspecified chronic kidney disease (principal); N18.31 Chronic kidney disease, stage 3a; G47.33 Obstructive sleep apnea (adult) (pediatric); Z99.89 Dependence on other enabling machines and devices | CPT/HCPCS: 99202 ==

== ENCOUNTER 2024-05-14 08:03 | Outpatient (REF) | payer MEDICARE, MEDICAID, SELFPAY ==
--- OUTSIDE RECORDS SUMMARY | 2024-05-14 08:08 | XMS_ITS ---
Author Organization [facility] Address [address] [place] [address] Care Team Providers Care High Rigger Name Role Phone Garry Graves MD Primary Care Provider Daisy George Unavailable [phone] Solomon Ventura Unavailable [phone] Allergies Allergen (clinical drug ingredient) Drug/Non Drug [...] Problem Status W/U Status Risk Notes Problem [id number] Venous insufficiency (I87.2) Active confirmed Vital Signs Height 5 ft 11 in in 08/25/2023 Weight 334 lbs 08/25/2023 BMI 46.58 kg/m2 08/25/2023 Encounters Encounter Location Date Provider Diagnosis [facility] [place] [address] [place] [address] 08/25/2023 Solomon Ventura Plantar fascial fibromatosis M72.2 [...] Provider Name:Daisy collado, 08/30/2024 11:15:00 AM, [address] [place], [address], Progress Notes * Hector COLON KDOB:[birth year] (68 yo M)Acc No.[id number]:08/25/2023 Progress Note Patient:?Hector Colon Edgar Provider:?Solomon Ventura DPM :1955???Age:68 Y???Sex:Male Narciso e:08/25/2023 Address:[address] [place], [place] [id number] Pcp:Garry Graves MD Subjective: * Chief Complaints: * ???Last Visit PCP 08/17/23 * HPI: ???Heel pain:?Nature:?aching.?Location:?B/L, proximal plantar aspect of heel--left more severe than right.?Duration:?several years .?Onset/Cause:?unknown.?Course:?improved with use of upright walker over past sev months.?Aggrevated:?standing, walking.?Treatments:?rest, change in shoes, innersoles, corticosteriod injection; custom orthoses and aleve; rest helps the most; methotrexate for tx of arthritis; Dr. Balderrama--[facility] rheum.?Skin problems:?Nature:?dryness.?Location:?Heel/Rearfoot, B/L .?Duration:?several weeks.?Onset/Cause:?unknown.?Treatments:?medication ( Eucerin).?Severity/Quality:?moderate.?Foot [...] Exercise. ?Marital status: . ?Occupation: Retired-[employer]. * Medications:?TakingAllopurin ol 100 MG Tablet [...] DPM Date:? 024 Generated for Capo raman/Davidson/Agathaitting on:?05/14/2024 08:08 AM EST History and Physical Notes * [...] most; methotrexate for tx of arthritis; Dr. Balderrama--[facility] rheum Skin problems Nature: dryness Location: Heel/Rearfoot, [...]
--- OUTSIDE RECORDS SUMMARY | 2024-05-14 08:08 | XMS_ITS ---
Author Organization [facility] Address [address] [place] [address] Care Team Providers Care Director Trade Name Role Phone Garry Graves MD Primary Care Provider Daisy George Unavailable [phone] Solomon Ventura [phone] REASON FOR VISIT Rx Medications Medication SIG (Take, Route, Fr equency, Duration) Notes Start Date End Date Status Custom Orthotics as directed 09/29/2023 Active Encounters Encounter Location Date Provider Diagnosis [address] [address] 09/28/2023 Solomon Ventura Plan Of Treatment Medication Medication Name Sig Start Date Stop Date Notes Custom Orthotics as directed 09/29/2023 Next Appt Details Provider Name:Daisy collado, 08/30/2024 11:15:00 AM, [address] [place], [address], Progress Notes * Hector COLON KDOB:[birth year] (68 yo M)Acc No.[id number]:09/28/2023 Patient:?Hector Colon :1955???Age:68 Y???Sex:Male Address:[address], [place], [address] * Refills? Start Custom Orthotics, as directed * true * Date:? Generated for Printi ng/Faxing/eTransmitting on:?05/14/2024 08:08 AM EST
--- OUTSIDE RECORDS SUMMARY | 2024-05-14 08:08 | XMS_ITS | Patient Health Record ---
[facility] [place] Address [address] [place] [address] Care Team Providers Care Tie Fastener Name Role Phone Star SEGURA, Garry Primary Care Provider Daisy George Unavailable [phone] Lorenzo Solomon Unavailable [phone] Allergies Allergen (clinical drug ingredient) Drug/Non Drug [...] primary osteoarthritis of the ankle and/or foot (340008107) Primary osteoarthritis, left ankle and foot (M19.072) Active confirmed Problem Plantar fascial fibromatosis (43027725) Plantar 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) Active confirmed Problem Acquired hammer toe of right foot (6007959146892175) Other hammer toe(s) (acquired), right foot (M20.41) Active confirmed Problem Acquired hammer toe of left foot (1929701831632011) Other hammer toe(s) (acquired), left foot (M20.42) Active confirmed Problem 52778758 Venous insufficiency (I87.2) Active confirmed Vital Signs Height 5 ft 11 in in 08/25/2023 Weight 334 lbs 08/25/2023 BMI 46.58 kg/m2 08/25/2023 Encounters Encounter Location Date Provider Diagnosis [address] [address] 08/25/2023 Solomon Ventura Plantar fascial fibromatosis M72.2 [...] Localized edema R60.0 and Venous insufficiency I87.2 [facility] [address] [address] 09/28/2023 Solomon Ventura Assessments Encounter Date Diagnosis [...] Details Provider Name:Daisy collado, 08/30/2024 11:15:00 AM, [address] [place] [address], [phone], Insurance Providers Payer Name Payer Address Payer Phone Subscriber Number Group Number Insured Name Patient Relationship to Insured Coverage Start Date Coverage End Date Medicare National Govt Svcs Inc [address] [place] [address] [id number] Hector Colon Self - patient is the insured Medical (General) History Medical History History ICD Code transfusions diverticulosis chicken pox back, hip, knee pain chron's Surgical History Surgery Date(Month/Year) colon/intestinal surgery heart surgery unspecified kymberly
--- OUTSIDE RECORDS SUMMARY | 2024-05-14 08:09 | XMS_ITS | Data Portability ---
Author Organization [facility] Home Service Address [address] [place] [address] Assessment Encounter Date Assessment Date Assessment LastModified by Organization Details LastModified Time 11/26/2022 11/26/2022 [id number] [place] [id number] (HAIR DRESSER) MDM MODERATE MUST MEET 2 OUT OF [...] COVERED Not available 11/26/2022 10:48:44 08/17/2023 08/17/2023 [id number] [place] [id number] (HAIR DRESSER) MDM MODERATE MUST MEET 2 OUT OF [...] COVERED Not available 08/17/2023 11:35:12 10/19/2023 10/19/2023 [id number] [place] [id number] (HAIR DRESSER) MDM HIGH MUST MEET 2 OUT OF [...] reduce health risks and promote healthy living. [email or web address] Not available 02/08/2024 16:33:32 Plan of Treatment Reminders Order Date Submit Date Provider Last Modified By Organization Details Last Modified Time Details Appointments None recorded. Lab vitamin D, 25-hydroxy , total, serum 2022 023 [facility]ELA [facility], [address] [place] [address], [address], 3 12:56:38 vitamin B12, serum 2022 023 NELA [facility], [address] [place] [address], [address], 3 12:56:38 vitamin B1 (thiamine) , serum 2022 023 [facility] [facility], [address] [place] [address], [address], 3 11:16:12 folate, serum 2022 023 [employer] [facility], [address] [place], [address], 3 12:56:38 CMP, serum or plasma 2022 023 ATHENAFAX [facility], [address] [place], [address], 10:55:22 pro BNP (pro B-type natriureti c peptide), serum or plasma 2022 023 NELA [facility], [address] [place], [address], 12:56:38 CBC 2022 023 ATHENAX [facility], [address] [place], [address], 10:55:21 Referral None recorded. Procedures None recorded. Surgeries None recorded. Imaging None recorded. Medication Orders amoxicilli n 875 mg-potassi um clavulanat e 125 mg tablet 2023 024 [address] [id number], [address], [place], [phone], 13:55:23 Patient TargetsNo targets recorded. Patient Instructions Encounter Date Encounter Id Patient Instructions Last Modified By Organization Details Last Modified Time 08/17/2023 [id number] pulse oximetry* Not available 08/17/2023 11:13:27 10/19/2023 [id number] When You Want to Lose Weight: Care Instructions Not available 10/19/2023 14:23:11 crohn's disease: care instructions Not available 10/19/2023 14:23:11 heart failure: care instructions Not available 10/19/2023 14:23:11 learning about heart failure Not available 10/19/2023 14:23:11 02/08/2024 [id number] pulse oximetry* Not available 02/09/2024 23:02:02 sleep apnea: car e instructions Not available 02/09/2024 23:02:02 Reason for Referral None Reported. Results Created Date Observation Date Name Description Value Unit Range Abnormal Flag Note LastModifiedBy Organization Detail LastModifiedTime 08/17/19 24 08/17/2023 pulse oxime try* Result 97 Not Available [facility] [address], [place], [address], 08/15/2023 14:00:34 02/08/20 24 02/08/2024 pulse oxime try* Result 97 Not Available [facility] [address], [place], [address], 02/06/2024 12:00:52 02/01/20 23 01/28/2023 MRI, cervi nia spine , w/o contr ast No observ ation record ed. [facility] [place] [address] [address], [place], [address], 01/31/2023 15:06:36 06/28/19 24 06/24/2023 US, echoc ardio gram No observ ation record ed. [facility], [place], [address], 08/17/2023 10:58:21 Result Notes None recorded. Problems Name Problem SNOMED Code Status Onset Date Resolution Date Notes Provider Name and Address Organization Details Recorded Time Crohn's disease 12192000 Active 2019 Garry Graves DO [address], [place], [address], [place] [facility] 0 11:51:44 Degenerati on of lumbar interverte bral disc 98443794 Active 2020 Garry Graves DO [address], [place], [address], [place] [facility] 10:47:53 Osteoarthr itis 391853443 Active 2021 Garry Graves, DO [address] [place] [address], [address], [facility] 2 15:14:41 Degenerati ve joint disease of hand 87502852 Active 2022 SAI PIERCE [address] [place] [address], [address], [facility] 3 15:28:27 COVID-19 302188625 Active 2023 Garry YvonneRory Graves, DO [address] [place] [address], [address], [facility] 4 13:31:54 Chronic tophaceous gout 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 Active 2023 Garry Graves, DO [address] [place] [address], [address], [facility] 4 11:11:39 Acute right otitis media 559154218 Active 2023 Garry Graves, DO [address] [place] [address], [address], [facility] 4 11:34:54 Psoriatic arthritis 127582599 Active 2023 Garry Graves, DO [address] [place] [address], [address], [facility] 4 14:16:12 Morbid obesity 614808069 Active 2017 Susan burgess [facility] 8 08:45:56 Congestive heart failure 50437236 Active 2017 Susan burgess [facility] Medicine 8 08:45:59 Obstructiv e sleep apnea syndrome 68018920 Active 2017 Susan burgess [facility] 8 08:46:05 Hypertensi ve disorder 93563844 Active 2017 Susan burgess [facility] Medicine 8 08:46:10 Problem Notes None recorded. Procedures Surgical History Date Name Laterality Status Provider Name and Address Organization Details Recorded Time 019 Corticosteroid Injection completed Garry RussellRory Lópezalexander, [address] [place], [address], [facility] 01/08/2019 10:11:59 Imaging Results Imaging Date Name Status LastModified by Organization Details LastModified Time 01/28/2023 MRI, cervical spine, w/o contrast completed [facility] [place] [address] [facility] [address], [place], [address], 01/31/2023 15:06:36 06/24/2023 US, echocardiogram completed [facility] [address] [place] [address] [address], [place], [address], 08/17/2023 10:58:21 Procedure Notes None recorded. Medical Equipment None Reported. Allergies Allergen ID Allergen Name Allergen Category Reaction Reaction Severity Criticality Documentation Date Start Date Code Code System Note Provider Name and Address Organization Details Recorded Time 3160 meloxicam medicatio n diarrhea severe Not available 11/20/20182018 69157 RxNorm Garry Graves DO [address] [place], [address], [facility] 9 17:32:39 4698 tramadol medicatio n dizziness moderate Not available 01/06/2021 69331 RxNorm SAI PIERCE [address] [place], [address], [facility] 11:05:59 Medications Name Sig [...] Updated DateTime 3 177.8 cm 46.8 kg/m2 986835. 11 g 66 /min 97 % 97 % 140 mm[Hg] 90 mm[Hg] Jeane Dietrich [facility] 3 10:29:37 Date Recorded Body height Body mass index (BMI) Body weight Heart rate Oxygen saturation Oxygen saturation in Arterial blood by Pulse oximetry Systolic blood pressure Diastolic blood pressure Provider Name and Address Organization Details Last Updated DateTime 4 177.8 cm 45.3 kg/m2 908173. 19 g 67 /min 97 % 97 % 140 mm[Hg] 70 mm[Hg] Jeane Peralta [facility] Internal [facility] 4 10:19:26 Date Recorded Body height Body mass index (BMI) Body weight Heart rate Oxygen saturation Oxygen saturation in Arterial blood by Pulse oximetry Systolic blood pressure Diastolic blood pressure Provider Name and Address Organization Details Last Updated DateTime 4 177.8 cm 44.9 kg/m2 005067. 41 g 55 /min 97 % 97 % 140 mm[Hg] 60 mm[Hg] Jeane Peralta [facility] Internal [facility] 4 10:44:51 Date Recorded Body height Body mass index (BMI) Body weight Heart rate Respiratory rate Oxygen saturation Oxygen saturation in Arterial blood by Pulse oximetry Systolic blood pressure Diastolic blood pressure Provider Name and Address Organization Details Last Updated DateTime 4 177.8 cm 44.9 kg/m2 629237. 41 g 52 /min 18 /min 99 % 99 % 132 mm[Hg] 66 mm[Hg] João Joyner [facility] Internal [facility] 4 13:57:16 Date Recorded Body height Body mass index (BMI) Body weight Heart rate Oxygen saturation Oxygen saturation in Arterial blood by Pulse oximetry Systolic blood pressure Diastolic blood pressure Systolic blood pressure Diastolic blood pressure Provider Name and Address Organization Details Last Updated DateTime 4 177.8 cm 44.9 kg/m2 428429. 41 g 54 /min 97 % 97 % 140 mm[Hg] 70 mm[Hg] 132 mm[Hg] 70 mm[Hg] Jeane [facility] Internal [facility] 4 16:35:02 Social History Question Answer Notes LastModified by Organizat ion Details LastModified Time Tobacco Smoking Status Former Smoker Not Available [facility] 03/18/2020 03:36:24 What Was The Date Of Your Most Recent Tobacco Screening? 02/08/2024 [email or web address] Information not available 02/08/2024 Do You Or [...] pneumococcal polysaccharide PPV23 0 [facility] 11:26:53 COVID-19, mRNA, LNP-S, PF, 30 mcg/0.3 mL dose 1 completed [facility] 11/25/2020 11:27:04 COVID-19, mRNA, LNP-S, PF, 30 mcg/0.3 mL dose 1 completed Nathalie Balicki [facility] 11/25/2020 11:27:11 Hep B, unspecified formulation 0 completed Nathalie Balicki [facility] 11/25/2020 11:27:24 Hep B, unspecified formulation 0 completed Nathalie Balicki [facility] 11/25/2020 11:27:31 Hep B, unspecified formulation 1 completed Nathalie Balicki [facility] 11/25/2020 11:27:37 Hep A, unspecified formulation 0 completed Nathalie Balicki [facility] 11/25/2020 11:27:57 Hep A, unspecified formulation 0 completed [facility] 11/25/2020 11:28:04 Hep A, unspecified formulation 1 completed [facility] 11/25/2020 11:28:12 COVID-19, mRNA, LNP-S, PF, 30 mcg/0.3 mL dose 1 completed Susan Florez [facility] 01/06/2021 09:14:20 Influenza, split virus, quadrivalent, preservative 1 completed Susan burgess [facility] 08/24/2021 10:36:11 Tdap 9 completed Susan burgess [facility] 01/17/2019 08:11:56 Past Encounters Encounter ID Performer Location Encounter Start Date Encounter Closed Date Diagnosis/Indication Diagnosis SNOMED-CT Code Diagnosis ICD10 Code [id number] Garry Graves [facility] [address] [address] 09/13/2017 10:56:44 09/13/2017 16:01:17 Hypertensive disorder 83619552 I10 Congestive heart failure 15727959 I50.9 Tenosynovi tis of wrist 164892270 M65.839 [id number] Garry Graves [address] [address] 01/25/2018 09:33:47 01/25/2018 10:14:56 Morbid obesity 819750560 E66.01 Hypertensive disorder 38 352422 I10 Congestive heart failure 71681489 I50.9 Obstructiv e sleep apnea syndrome 89332528 G47.33 Screening for cardiovascular system disease 374856564 Z13.6 Edema of l ower extremity 462370596 R60.0 [id number] Mary Jo [place] NP, [facility] Internal [address] [address] 05/23/2018 10:33:27 05/23/2018 16:49:35 Morbid obesity 416990677 E66.01 Acute bronchitis 3534789 2 J20.9 Hypertensive disorder 38 677547 I10 Obstructiv e sleep apnea syndrome 41846717 G47.33 [id number] Garry Graves [facility] [address] [address] 08/02/2018 08:56:16 08/02/2018 12:49:34 Obstructive sleep apnea syndrome 40679337 G47.33 Hypertensive disorder 38 225449 I10 Congestive heart failure 33041128 I50.9 Morbid obesity 185660122 E66.01 Wrist joint pain 3138359 09 M25.539 [id number] Garry Graves [facility] Medicine [address] [facility] [place] [address] 11/20/2018 16:16:38 11/20/2018 17:38:10 Adverse reaction to drug 12875808 T50.905A Hypertensive disorder 38 044793 I10 Congestive heart failure 26667286 I50.9 [id number] August IKE Hernandez [facility] [address] [facility], [place] [address] 12/27/2018 10:47:48 12/27/2018 13:47:31 Body mass index 40+ - severely obese 891413694 Z68.42 Hypertensive disorder 38 653872 I10 Obstructiv e sleep apnea syndrome 79670327 G47.33 Knee pain 33709549 M25.5 69 [id number] Garry Graves [facility] Medicine [address] [place] [address] [place] [address] 01/08/2019 09:49:46 01/08/2019 10:20:43 Osteoarthritis of knee 158922223 M17.9 [id number] Garry Graves [facility] Medicine [address] [place] [address] [place] [address] 02/07/2019 08:53:44 02/07/2019 10:48:03 Hypertensive disorder 42171399 I10 Congestive heart failure 57485687 I50.9 Chronic diarrhea 9519547 09 K52.9 Morbid obesity 579660505 E66.01 [id number] Garry Graves [facility] Medicine [address] [place] [address], [place] [address] 05/07/2019 10:23:47 05/07/2019 10:53:59 Hypertensive disorder 03572488 I10 Congestive heart failure 73973405 I50.9 Obstructiv e sleep apnea syndrome 19163743 G47.33 Diarrhea 25253404 R19.7 Crohn's disease 07921911 K50.90 [id number] Garry Graves [facility] Medicine [address] [place] [address] [address] [place] [address] 08/17/2019 09:29:29 08/17/2019 12:16:51 Congestive heart failure 99705629 I50.9 Hypertensive disorder 38 010919 I10 Obstructiv e sleep apnea syndrome 15453913 G47.33 Microcytic anemia 050187 007 D50.9 [id number] Garry Graves [facility] Medicine [address] [facility] [place] [address] 12/07/2019 08:58:03 12/07/2019 11:52:09 Congestive heart failure 97692294 I50.9 Crohn's disease 88789099 K50.90 Hypertensive disorder 38 659086 I10 Obstructiv e sleep apnea syndrome 75780976 G47.33 [id number] Garry Graves [facility] Medicine [address] [facility] [place] [address] 04/28/2020 08:45:16 04/28/2020 10:57:40 Congestive heart failure 25243668 I50.9 Hypertensive disorder 38 401068 I10 Obstructiv e sleep apnea syndrome 21210607 G47.33 Morbid obesity 616235520 E66.01 Crohn's disease 54813838 K50.90 [id number] Garry Graves [facility] Medicine [address] [facility] [place] [address] 11/28/2020 11:06:02 11/28/2020 12:11:18 Hypertensive disorder 25086862 I10 Congestive heart failure 92727702 I50.9 Obstructiv e sleep apnea syndrome 01007762 G47.33 Hepatitis C screening 41 0199209 Z11.59 Morbid obesity 149630924 E66.01 Crohn's disease 75012259 K50.90 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 1406454664 106 K50.018 [id number] SAI PIERCE [facility] Medicine [address] [place] [address] [place] [address] 12/10/2020 09:52:05 12/10/2020 11:56:49 Neck pain 50202669 M54.2 Torticollis 11424710 M43 .6 [id number] SAI PIERCE [facility] [address] [place] [address] it[address] [facility] [place] [address] 01/06/2021 09:05:10 01/06/2021 12:01:51 Epidermoid cyst of skin 355723189 L72.3 Degenerati on of cervical intervertebral disc 91320377 M50.30 [id number] SAI PIERCE [facility] Medicine [address] [place] [address] 03/16/2021 11:22:42 03/16/2021 12:41:23 Low back pain 503617485 M54.59 Abnormal gait 21831646 R 26.9 Bursitis o f olecranon of right elbow 8577010281 39825 M70.21 [id number] Garry Graves [facility] Medicine [address] [place] [address] 04/20/2021 10:25:43 04/20/2021 12:42:30 Hypertensive disorder 50806792 I10 Congestive heart failure 78488881 I50.9 Obstructiv e sleep apnea syndrome 95629574 G47.33 Crohn's disease 72524785 K50.90 Degenerati on of lumbar intervertebral disc 51230132 M51.36 Hearing loss 57668198 H9 0.3 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 2548344032 105 M48.02 [id number] Garry Graves [facility] Medicine [address] [place] [address] 08/24/2021 10:25:17 08/24/2021 11:40:12 Hypertensive disorder 79215997 I10 Congestive heart failure 98338817 I50.9 Morbid obesity 276502954 E66.01 Crohn's disease 47959343 K50.90 [id number] Garry Graves [facility] Medicine [address] [place] [address] 12/11/2021 14:47:03 12/11/2021 16:18:04 Hypertensive disorder 16399927 I10 Depression screening 171 644004 Z13.31 Crohn's disease 96980964 K50.90 Congestive heart failure 41930012 I50.9 Osteoarthritis 455089957 M19.90 [id number] Garry Graves [facility] Medicine [address] [place], [place] [address] [address] [place] [address] 04/30/2022 10:54:24 04/30/2022 15:17:59 Congestive heart failure 43894803 I50.9 Hypertensive disorder 38 420163 I10 Osteoarthritis 276667091 M19.90 Obstructiv e sleep apnea syndrome 32594861 G47.33 [id number] Garry Graves [facility] Medicine [address] [place] [address] [place] [address] 11/26/2022 10:17:44 11/26/2022 11:32:27 Congestive heart failure 95736743 I50.9 Hypertensive disorder 38 595656 I10 Morbid obesity 977191159 E66.01 Crohn's disease 69742665 K50.90 [id number] CARMELINA URBANO [facility] Internal Medicine [address] [place] [address] [place] [address] 06/06/2023 10:12:51 06/06/2023 10:41:44 Morbid obesity 886958489 E66.01 Hypertensive disorder 38 796280 I10 Obstructiv e sleep apnea syndrome 96968256 G47.33 Congestive heart failure 22889788 I50.89 Pre-surger y evaluation 423689278 Z01.818 [id number] Garry Graves [facility] Medicine [address] [place] [address] [place] [address] 08/17/2023 10:37:50 08/17/2023 11:36:58 Crohn's disease 04220829 K50.90 Congestive heart failure 82955732 I50.89 Hypertensive disorder 38 088912 I10 Morbid obesity 783322204 E66.01 Chronic to phaceous gout 74751498 M1A.9XX1 Acute righ t otitis media 749614988 H66.91 [id number] Garry Graves [facility] Medicine [address] [place], [place] [address] [address] 10/19/2023 13:46:51 10/19/2023 14:34:25 Acute right otitis media 121336768 H66.91 Depression screening 171 275947 Z13.31 Hypertensive disorder 38 823939 I10 Degenerati on of lumbar intervertebral disc 90642485 M51.36 Congestive heart failure 72461277 I50.89 Morbid obesity 551643708 E66.01 Psoriatic arthritis 1563 72204 L40.50 Crohn's disease 09050288 K50.90 [id number] DO [facility]aur [facility] [address] [facility] [address] 02/08/2024 16:03:32 02/10/2024 08:57:21 Congestive heart failure 16604248 I50.89 Psoriatic arthritis 1563 67882 L40.50 Obstructiv e sleep apnea syndrome 48379234 G47.33 Health Concerns Section Related Observation LastModified by Organization Detai ls LastModified Time None Recorded Concern Status LastModified by Organization Details LastModified Time None Recorded Advance Directives Directive None Recorded Payers Encounter Date Sequence Insurance Name Policy Number Policy Damon Covered Member ID Damon Member ID Guarantor Name 11/26/2022 2 [place] Hector Hernández Isaiah [id number] Hector Isaiah 11/26/2022 1 [place] Hector Perezonte [id number] Hector Isaiah 06/06/2023 2 [place] Hector Hernández Isaiah [id number] Hector Isaiah 06/06/2023 1 [place] Hector Hernández Isaiah [id number] Hector Isaiah 08/17/2023 2 [place] Hector Hernández Isaiah [id number] Hector Isaiah 08/17/2023 1 [place] Hector Edgar Isaiah [id number] Hector Isaiah 10/19/2023 2 [place] Hector Hernández Isaiah [id number] Hector Isaiah 10/19/2023 1 [place] Hector Edgar Isaiah [id number] Hector Isaiah 02/08/2024 2 [place] Hector Edgar Isaiah [id number] Hector Isaiah 02/08/2024 1 [place] Hector Colon [id number] Hector Colon Notes Date Note Type Note Provider Name and Address Organization Details Recorded Time 3 text/htm l here for rechk overall is doing okrelates that he is not having cpno sob unless exert uses cpapbowels are goodbladder okarthritis is what is kicking his ass and state s he is quite frustrated with this at times Garry Graves DO [address] [place], [address], [facility] 11/26/2022 10:52:15 4 text/htm l Pre-OpReported bypatient.Surgery to be Performed:carpal tunnel surgery (bilaterally) and both elbows (biopsy[place] with [place]. [place] [facility] Severity:severe Risk Factorsno cognitive impairment; no functional [...] Support:adequate assistance at home () cleared by sand cleaning machine operator and wood boring machine operator SAI PIERCE [address] [place], [address], [facility] 06/06/2023 10:36:13 4 text/htm l [...] should be restarted Garry Graves DO [address] [place], [address], [facility] 08/17/2023 11:35:26 4 text/htm l [...] controlled no bleeding Garry Graves DO [address] [place], [address], [facility] 10/19/2023 14:23:32 4 text/htm l here for rechk and is doing jessica MTX and recent lab shows ongoing anemia creat is still ok overallarhtritis is bothering himcrohns is quiet ]'gout has been the issue uric acid is 7.2 Garry Graves DO [address] [place], [address], [facility] 02/09/2024 23:02:06
[2024-05-14 08:52] LABS: Appearance Urine Clear; Color Urine Yellow; Glucose Urine UA Negative (Negative); Leukocyte Esterase Urine Trace (Negative); Nitrite Urine Negative (Negative); UMIC TRIGGER UA YES; Urine Blood Negative (Negative); Urine Ketones Trace mg/dL (Negative); Urine Protein Negative (Neg-Trace)
[2024-05-14 08:57] LABS: Bacteria Urine None Seen (None Seen); Hyaline Casts Urine 0-2 /LPF (0-2); RBC Urine 0-2 /HPF (0-2); Squamous Epithelial Cell Urine 0-2 /HPF (0-2); WBC Urine 0-5 /HPF (0-5)
[2024-05-14 09:08] LABS: Anion Gap 16 (12-20); Blood Urea Nitrogen 30 mg/dL (9-16); Calcium 9.5 mg/dL (8.4-10.2); Carbon Dioxide 24 mmol/L (22-29); Chloride 107 mmol/L (96-108); Estimated Glomerular Filt Rate 48; Glucose Random 117 mg/dL (60-115); Potassium 4.8 mmol/L (3.3-5.1); Sodium 142 mmol/L (135-145)
[2024-05-14 09:20] LABS: Creatinine (CrCl) 1.46 mg/dL (0.5-1.4)
[2024-05-14 09:21] LABS: Total Volume 24 Hour Urine 1850 mL
[2024-05-14 09:26] LABS: Creatinine, 24Hr Urine 1.5 G/Day (1.0-2.0); Creatinine, mg/dL 80.71
[2024-05-14 09:28] LABS: Creatinine Urine 132.64 mg/dL; Total Protein Urine Random 13 mg/dL (<12)
== END 2024-05-14 08:04 | disposition home or self-care (01) ==
LOC: HO.LAB 08:03
PROVIDERS: PCP Internal Medicine; Visit Provider Internal Medicine Hypertension Specialist
DX: N18.31 Chronic kidney disease, stage 3a (principal)
CPT/HCPCS: 36415; 80048; 81001; 82570; 82575; 84156

== ENCOUNTER 2024-05-18 14:37 | Outpatient (REF) | payer MEDICARE, MEDICAID, SELFPAY ==
--- NOTE | ~2024-05-18 | US_ITS ---
CLINICAL HISTORY: I10 - Essential (primary) hypertension Exam: Ultrasound of the kidneys. Comparison: None. Findings: Right kidney measures 12.0 x 5.2 x 6.6 cm in size. There is a 3.0 x 2.3 x 2.1 cm simple cyst within the interpolar region of the right kidney. No solid mass, stone, or hydronephrosis. Left kidney measures 11.3 x 5.6 x 5.7 cm in size. There is a partially exophytic simple cyst off the interpolar region of the left kidney measuring 7.9 x 5.4 x 6.2 cm in size. No solid mass or hydronephrosis. Incidental note is made of enlargement of the spleen measuring up to 17 cm in long axis. Moderate-sized splenule is also seen. Impression: 1. Simple cysts within both kidneys. 2. Incidentally noted splenomegaly. This document has been electronically signed by: Samuel Agrawal MD on 05/19/2024 08:02:17
--- OUTSIDE RECORDS SUMMARY | 2024-05-18 15:58 | XMS_ITS ---
Author Organization [facility] Address [address] [place] [address] Care Team Providers Care Senior Software Developer Name Role Phone Garry Graves MD Primary Care Provider Daisy George Unavailable [phone] Solomon Ventura [phone] REASON FOR VISIT Rx Medications Medication SIG (Take, Route, Fr equency, Duration) Notes Start Date End Date Status [facility] as directed 09/29/2023 Active Encounters Encounter Location Date Provider Diagnosis [address] [address] 09/28/2023 Solomon Ventura Plan Of Treatment Medication Medication Name Sig Start Date Stop Date Notes [facility] as directed 09/29/2023 Next Appt Details Provider Name:Daisy collado, 08/30/2024 11:15:00 AM, [address] [place], [address], Progress Notes * Hector COLON KDOB:[birth year] (68 yo M)Acc No.[id number]:09/28/2023 Patient:?Isaiah Hector Hernández :1955???Age:68 Y???Sex:Male Address:[address], [place], [address] * Refills? Start [facility], as directed * true * Date:? Generated for Printi ng/Faxing/eTransmitting on:?05/18/2024 03:58 PM EST
--- OUTSIDE RECORDS SUMMARY | 2024-05-18 15:58 | XMS_ITS ---
[facility] Organization [facility] Address [address] [place] [address] Care Team Providers Care Blocker And Polisher Name Role Phone Garry Graves MD Primary Care Provider Daisy George Unavailable [phone] Solomon Ventura Unavailable [phone] Allergies Allergen (clinical drug ingredient) Drug/Non Drug [...] Problem Status W/U Status Risk Notes Problem [id number] Venous insufficiency (I87.2) Active confirmed Vital Signs Height 5 ft 11 in in 08/25/2023 Weight 334 lbs 08/25/2023 BMI 46.58 kg/m2 08/25/2023 Encounters Encounter Location Date Provider Diagnosis [facility] [place] [address] [place] [address] 08/25/2023 Solomon Ventura Plantar fascial fibromatosis M72.2 [...] Provider Name:Daisy collado, 08/30/2024 11:15:00 AM, [address] [place], [address], Progress Notes * Hector COLON KDOB:[birth year] (68 yo M)Acc No.[id number]:08/25/2023 Progress Note Patient:?Hector Colon Edgar Provider:?Solomon Ventura DPM :1955???Age:68 Y???Sex:Male Narciso e:08/25/2023 Address:[address] [place], [place] [id number] Pcp:Garry Graves MD Subjective: * Chief Complaints: * ???Last Visit PCP 08/17/23 * HPI: ???Heel pain:?Nature:?aching.?Location:?B/L, proximal plantar aspect of heel--left more severe than right.?Duration:?several years .?Onset/Cause:?unknown.?Course:?improved with use of upright walker over past sev months.?Aggrevated:?standing, walking.?Treatments:?rest, change in shoes, innersoles, corticosteriod injection; custom orthoses and aleve; rest helps the most; methotrexate for tx of arthritis; Dr. Balderrama--[facility] rheum.?Skin problems:?Nature:?dryness.?Location:?Heel/Rearfoot, B/L .?Duration:?several weeks.?Onset/Cause:?unknown.?Treatments:?medication ( Eucerin).?Severity/Quality:?moderate.?Foot [...] Exercise. ?Marital status: . ?Occupation: Retired-[employer]. * Medications:?TakingAllopurin ol 100 MG Tablet [...] DPM Date:? 024 Generated for Capo raman/Davidson/Agathaitting on:?05/18/2024 03:58 PM EST History and Physical Notes * [...] most; methotrexate for tx of arthritis; Dr. Balderrama--[facility] rheum Skin problems Nature: dryness Location: Heel/Rearfoot, [...]
--- OUTSIDE RECORDS SUMMARY | 2024-05-18 15:59 | XMS_ITS | Data Portability ---
Author Organization [facility] Address [address] [place] [address] Assessment Encounter Date Assessment Date Assessment LastModified by Organization Details LastModified Time 11/26/2022 11/26/2022 [id number] [place] [address] (CLAIMS SORTER) MDM MODERATE MUST MEET 2 OUT OF [...] COVERED Not available 11/26/2022 10:48:44 08/17/2023 08/17/2023 [id number] [place] [address] (CLAIMS SORTER) MDM MODERATE MUST MEET 2 OUT OF [...] COVERED Not available 08/17/2023 11:35:12 10/19/2023 10/19/2023 [address] [place] [address] (CLAIMS SORTER) MDM HIGH MUST MEET 2 OUT OF [...] reduce health risks and promote healthy living. Not available 02/08/2024 16:33:32 Plan of Treatment Reminders Order Date Submit Date Provider Last Modified By Organization Details Last Modified Time Details Appointments None recorded. Lab vitamin D, 25-hydroxy , total, serum 2022 023 [facility], [address] [place] [address], [address], 3 12:56:38 vitamin B12, serum 2022 023 NELA [facility], [address] [place] [address], [address], 3 12:56:38 vitamin B1 (thiamine) , serum 2022 023 [facility], [address] [place] [address], [address], 3 11:16:12 folate, serum 2022 023 [facility], [address] [place], [address], 3 12:56:38 CMP, serum or plasma 2022 023 ATHENAFAX [facility], [address] [place], [address], 10:55:22 pro BNP (pro B-type natriureti c peptide), serum or plasma 2022 023 NELA [facility], [address] [place], [address], 12:56:38 CBC 2022 023 ATHENAX [facility], [address] [place], [address], 10:55:21 Referral None recorded. Procedures None recorded. Surgeries None recorded. Imaging None recorded. Medication Orders amoxicilli n 875 mg-potassi um clavulanat e 125 mg tablet 2023 024 [address] [id number], [address] [place], [place], [id number], 13:55:23 Patient TargetsNo targets recorded. Patient Instructions Encounter Date Encounter Id Patient Instructions Last Modified By Organization Details Last Modified Time 08/17/2023 [id number] pulse oximetry* Not available 08/17/2023 11:13:27 10/19/2023 [id number] When You Want to Lose Weight: Care Instructions Not available 10/19/2023 14:23:11 crohn's disease: care instructions Not available 10/19/2023 14:23:11 heart failure: care instructions Not available 10/19/2023 14:23:11 learning about heart failure Not available 10/19/2023 14:23:11 02/08/2024 [id number] pulse oximetry* Not available 02/09/2024 23:02:02 sleep apnea: car e instructions Not available 02/09/2024 23:02:02 Reason for Referral None Reported. Results Created Date Observation Date Name Description Value Unit Range Abnormal Flag Note LastModifiedBy Organization Detail LastModifiedTime 08/17/19 24 08/17/2023 pulse oxime try* Result 97 Not Available [facility] [address] [facility] [address], [place], [address], 08/15/2023 14:00:34 02/08/20 24 02/08/2024 pulse oxime try* Result 97 Not Available [facility] [address] [facility], [place], [address], 02/06/2024 12:00:52 02/01/20 23 01/28/2023 MRI, cervi nia spine , w/o contr ast No observ ation record ed. [facility] [address] [address], [place], [address], 01/31/2023 15:06:36 06/28/19 24 06/24/2023 US, echoc ardio gram No observ ation record ed. [facility], [place], [address], 08/17/2023 10:58:21 Result Notes None recorded. Problems Name Problem SNOMED Code Status Onset Date Resolution Date Notes Provider Name and Address Organization Details Recorded Time Crohn's disease 41272461 Active 2019 Garry Graves DO [address] [facility], [place], [address], [place] [facility] 0 11:51:44 Degenerati on of lumbar interverte bral disc 06695873 Active 2020 Garry Graves DO [address] [facility], [place], [address], [place] [facility] 10:47:53 Osteoarthr itis 662718109 Active 2021 Garry Graves, DO [address] [place] [address], [address], [facility] 2 15:14:41 Degenerati ve joint disease of hand 07466416 Active 2022 SAI PIERCE [address] [place] [address], [address], [facility] 3 15:28:27 COVID-19 373600422 Active 2023 Garry YvonneRory Graves, DO [address] [place] [address], [address], [facility] 4 13:31:54 Chronic tophaceous gout 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 Active 2023 Garry Graves, DO [address] [place] [address], [address], [facility] 4 11:11:39 Acute right otitis media 638016140 Active 2023 Garry Graves, DO [address] [place] [address], [address], [facility] 4 11:34:54 Psoriatic arthritis 547242211 Active 2023 Garry Graves, DO [address] [place] [address], [address], [facility] 4 14:16:12 Morbid obesity 644671974 Active 2017 Susan burgess [facility] 8 08:45:56 Congestive heart failure 06757249 Active 2017 Susan burgess [facility] 8 08:45:59 Obstructiv e sleep apnea syndrome 57397332 Active 2017 Susan burgess [facility] 8 08:46:05 Hypertensi ve disorder 14183508 Active 2017 Susan burgess [facility] 8 08:46:10 Problem Notes None recorded. Procedures Surgical History Date Name Laterality Status Provider Name and Address Organization Details Recorded Time 019 Corticosteroid Injection completed Garry RussellRory Lópezalexander, [address] [place], [address], [facility] 01/08/2019 10:11:59 Imaging Results Imaging Date Name Status LastModified by Organization Details LastModified Time 01/28/2023 MRI, cervical spine, w/o contrast completed [facility] [address] [facility] [address], [place], [address], 01/31/2023 15:06:36 06/24/2023 US, echocardiogram completed [facility] [address] [place] [address] [address], [place], [address], 08/17/2023 10:58:21 Procedure Notes None recorded. Medical Equipment None Reported. Allergies Allergen ID Allergen Name Allergen Category Reaction Reaction Severity Criticality Documentation Date Start Date Code Code System Note Provider Name and Address Organization Details Recorded Time 3160 meloxicam medicatio n diarrhea severe Not available 11/20/20182018 25651 RxNorm Garry Graves DO [address] [place], [address], [facility] 9 17:32:39 4698 tramadol medicatio n dizziness moderate Not available 01/06/2021 43862 RxNorm SAI PIERCE [address] [place], [address], [facility] 11:05:59 Medications Name [...] Updated DateTime 3 177.8 cm 46.8 kg/m2 485833. 11 g 66 /min 97 % 97 % 140 mm[Hg] 90 mm[Hg] Jeane Dietrich [facility] 3 10:29:37 Date Recorded Body height Body mass index (BMI) Body weight Heart rate Oxygen saturation Oxygen saturation in Arterial blood by Pulse oximetry Systolic blood pressure Diastolic blood pressure Provider Name and Address Organization Details Last Updated DateTime 4 177.8 cm 45.3 kg/m2 010527. 19 g 67 /min 97 % 97 % 140 mm[Hg] 70 mm[Hg] Jeane Peralta [facility] 4 10:19:26 Date Recorded Body height Body mass index (BMI) Body weight Heart rate Oxygen saturation Oxygen saturation in Arterial blood by Pulse oximetry Systolic blood pressure Diastolic blood pressure Provider Name and Address Organization Details Last Updated DateTime 4 177.8 cm 44.9 kg/m2 120382. 41 g 55 /min 97 % 97 % 140 mm[Hg] 60 mm[Hg] Jeane Peralta [facility] Internal [facility] 4 10:44:51 Date Recorded Body height Body mass index (BMI) Body weight Heart rate Respiratory rate Oxygen saturation Oxygen saturation in Arterial blood by Pulse oximetry Systolic blood pressure Diastolic blood pressure Provider Name and Address Organization Details Last Updated DateTime 4 177.8 cm 44.9 kg/m2 057642. 41 g 52 /min 18 /min 99 % 99 % 132 mm[Hg] 66 mm[Hg] João Joyner [facility] Internal [facility] 4 13:57:16 Date Recorded Body height Body mass index (BMI) Body weight Heart rate Oxygen saturation Oxygen saturation in Arterial blood by Pulse oximetry Systolic blood pressure Diastolic blood pressure Systolic blood pressure Diastolic blood pressure Provider Name and Address Organization Details Last Updated DateTime 4 177.8 cm 44.9 kg/m2 309544. 41 g 54 /min 97 % 97 % 140 mm[Hg] 70 mm[Hg] 132 mm[Hg] 70 mm[Hg] Jeane [facility] 4 16:35:02 Social History Question Answer Notes LastModified by Organizat ion Details LastModified Time Tobacco Smoking Status Former Smoker Not Available [facility] 03/18/2020 03:36:24 What Was The Date Of Your Most Recent Tobacco Screening? 02/08/2024 [email or web address] Information not available 02/08/2024 Do You Or [...] polysaccharide PPV23 0 completed [facility]/25/2020 11:26:53 COVID-19, mRNA, LNP-S, PF, 30 mcg/0.3 mL dose 1 completed [facility] 11/25/2020 11:27:04 COVID-19, mRNA, LNP-S, PF, 30 mcg/0.3 mL dose 1 completed Nathalie Balicki [facility] 11/25/2020 11:27:11 Hep B, unspecified formulation 0 completed Nathalie Balicki [facility] 11/25/2020 11:27:24 Hep B, unspecified formulation 0 completed Nathalie Balicki [facility] 11/25/2020 11:27:31 Hep B, unspecified formulation 1 completed Nathalie Balicki [facility] 11/25/2020 11:27:37 Hep A, unspecified formulation 0 completed Nathalie Balicki [facility] 11/25/2020 11:27:57 Hep A, unspecified formulation 0 completed [facility] 11/25/2020 11:28:04 Hep A, unspecified formulation 1 completed [facility] 11/25/2020 11:28:12 COVID-19, mRNA, LNP-S, PF, 30 mcg/0.3 mL dose 1 completed Susan Florez [facility] 01/06/2021 09:14:20 Influenza, split virus, quadrivalent, preservative 1 completed Susan burgess [facility] 08/24/2021 10:36:11 Tdap 9 completed Susan burgess [facility] 01/17/2019 08:11:56 Past Encounters Encounter ID Performer Location Encounter Start Date Encounter Closed Date Diagnosis/Indication Diagnosis SNOMED-CT Code Diagnosis ICD10 Code [id number] Garry Graves [facility] [address] [address] 09/13/2017 10:56:44 09/13/2017 16:01:17 Hypertensive disorder 21634024 I10 Congestive heart failure 30808132 I50.9 Tenosynovi tis of wrist 157492938 M65.839 [id number] Garry Graves [address] [address] 01/25/2018 09:33:47 01/25/2018 10:14:56 Morbid obesity 885673846 E66.01 Hypertensive disorder 38 761789 I10 Congestive heart failure 19043033 I50.9 Obstructiv e sleep apnea syndrome 99789767 G47.33 Screening for cardiovascular system disease 743876824 Z13.6 Edema of l ower extremity 701449373 R60.0 [id number] Mary Jo [place] NP, [facility] [address] [address] 05/23/2018 10:33:27 05/23/2018 16:49:35 Morbid obesity 623504443 E66.01 Acute bronchitis 8462302 2 J20.9 Hypertensive disorder 38 775997 I10 Obstructiv e sleep apnea syndrome 80128756 G47.33 [id number] Garry Graves [facility] [address] [address] 08/02/2018 08:56:16 08/02/2018 12:49:34 Obstructive sleep apnea syndrome 94316120 G47.33 Hypertensive disorder 38 607126 I10 Congestive heart failure 24139026 I50.9 Morbid obesity 609752247 E66.01 Wrist joint pain 2645147 09 M25.539 [id number] Garry Graves [facility] [address] [facility] [address] 11/20/2018 16:16:38 11/20/2018 17:38:10 Adverse reaction to drug 77393210 T50.905A Hypertensive disorder 38 975317 I10 Congestive heart failure 60600966 I50.9 [id number] August IKE Hernandez [facility] [address] [facility] [address] 12/27/2018 10:47:48 12/27/2018 13:47:31 Body mass index 40+ - severely obese 592856486 Z68.42 Hypertensive disorder 38 554026 I10 Obstructiv e sleep apnea syndrome 96833246 G47.33 Knee pain 41394089 M25.5 69 [id number] Garry Graves [facility] [address] [place] [address] [place] [address] 01/08/2019 09:49:46 01/08/2019 10:20:43 Osteoarthritis of knee 749909191 M17.9 [id number] Garry Graevs [facility] [address] [place] [address] [place] [address] 02/07/2019 08:53:44 02/07/2019 10:48:03 Hypertensive disorder 43054936 I10 Congestive heart failure 89067173 I50.9 Chronic diarrhea 5750859 09 K52.9 Morbid obesity 218651243 E66.01 [id number] Garry Graves [facility] [address] [place] [address], [place] [address] 05/07/2019 10:23:47 05/07/2019 10:53:59 Hypertensive disorder 79796534 I10 Congestive heart failure 96442688 I50.9 Obstructiv e sleep apnea syndrome 71222719 G47.33 Diarrhea 25561044 R19.7 Crohn's disease 98572608 K50.90 [id number] Garry Graves [facility] [address] [place] [address] [address] [place] [address] 08/17/2019 09:29:29 08/17/2019 12:16:51 Congestive heart failure 82102910 I50.9 Hypertensive disorder 38 192777 I10 Obstructiv e sleep apnea syndrome 37542660 G47.33 Microcytic anemia 368517 007 D50.9 [id number] Garry Graves [facility] [address] [facility] [place] [address] 12/07/2019 08:58:03 12/07/2019 11:52:09 Congestive heart failure 02602687 I50.9 Crohn's disease 17841737 K50.90 Hypertensive disorder 38 346098 I10 Obstructiv e sleep apnea syndrome 31601645 G47.33 [id number] Garry Graves [facility] [address] [facility] [place] [address] 04/28/2020 08:45:16 04/28/2020 10:57:40 Congestive heart failure 61522416 I50.9 Hypertensive disorder 38 195736 I10 Obstructiv e sleep apnea syndrome 00256179 G47.33 Morbid obesity 015574764 E66.01 Crohn's disease 58570899 K50.90 [id number] Garry Graves [facility] [address] [facility] [place] [address] 11/28/2020 11:06:02 11/28/2020 12:11:18 Hypertensive disorder 90442156 I10 Congestive heart failure 58714623 I50.9 Obstructiv e sleep apnea syndrome 31813372 G47.33 Hepatitis C screening 41 4463039 Z11.59 Morbid obesity 637023828 E66.01 Crohn's disease 22292212 K50.90 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 5490909051 106 K50.018 [id number] SAI PIERCE [facility] [address] [place] [address] [place] [address] 12/10/2020 09:52:05 12/10/2020 11:56:49 Neck pain 68799268 M54.2 Torticollis 81370683 M43 .6 [id number] SAI PIERCE [facility] [address] [place] [address] it[place] [address] 01/06/2021 09:05:10 01/06/2021 12:01:51 Epidermoid cyst of skin 620800757 L72.3 Degenerati on of cervical intervertebral disc 53044800 M50.30 [id number] SAI PIERCE [facility] [address] [place] [address] 03/16/2021 11:22:42 03/16/2021 12:41:23 Low back pain 240779667 M54.59 Abnormal gait 14756739 R 26.9 Bursitis o f olecranon of right elbow 2965581447 20869 M70.21 [id number] Garry Graves [facility] [address] [place] [address] 04/20/2021 10:25:43 04/20/2021 12:42:30 Hypertensive disorder 86726506 I10 Congestive heart failure 92431993 I50.9 Obstructiv e sleep apnea syndrome 99446851 G47.33 Crohn's disease 71555786 K50.90 Degenerati on of lumbar intervertebral disc 72080838 M51.36 Hearing loss 37925182 H9 0.3 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 6878375693 105 M48.02 [id number] Garry Graves [facility] [address] [place] [address] 08/24/2021 10:25:17 08/24/2021 11:40:12 Hypertensive disorder 46335083 I10 Congestive heart failure 80024296 I50.9 Morbid obesity 218789054 E66.01 Crohn's disease 51639896 K50.90 [id number] Garry Graves [facility] [address] [place] [address] 12/11/2021 14:47:03 12/11/2021 16:18:04 Hypertensive disorder 71051049 I10 Depression screening 171 682903 Z13.31 Crohn's disease 59569861 K50.90 Congestive heart failure 19380691 I50.9 Osteoarthritis 725338632 M19.90 [id number] Garry Graves [facility] [address] [place], [place] [address] [address] [place] [address] 04/30/2022 10:54:24 04/30/2022 15:17:59 Congestive heart failure 79381890 I50.9 Hypertensive disorder 38 598671 I10 Osteoarthritis 355163653 M19.90 Obstructiv e sleep apnea syndrome 52126103 G47.33 [id number] Garry Graves [facility] [address] [place] [address] [place] [address] 11/26/2022 10:17:44 11/26/2022 11:32:27 Congestive heart failure 26380862 I50.9 Hypertensive disorder 38 124794 I10 Morbid obesity 296818131 E66.01 Crohn's disease 12680262 K50.90 [id number] CARMELINA URBANO [facility] Medicine [address] [place] [address] [place] [address] 06/06/2023 10:12:51 06/06/2023 10:41:44 Morbid obesity 779947495 E66.01 Hypertensive disorder 38 726379 I10 Obstructiv e sleep apnea syndrome 85215651 G47.33 Congestive heart failure 92845894 I50.89 Pre-surger y evaluation 273191348 Z01.818 [id number] Garry Graves [facility] [address] [place] [address] [place] [address] 08/17/2023 10:37:50 08/17/2023 11:36:58 Crohn's disease 96905753 K50.90 Congestive heart failure 25318359 I50.89 Hypertensive disorder 38 174591 I10 Morbid obesity 422185131 E66.01 Chronic to phaceous gout 87978862 M1A.9XX1 Acute righ t otitis media 827654674 H66.91 [id number] Garry Graves [facility] [address] [place], [place] [address] [address] 10/19/2023 13:46:51 10/19/2023 14:34:25 Acute right otitis media 228345260 H66.91 Depression screening 171 314343 Z13.31 Hypertensive disorder 38 868715 I10 Degenerati on of lumbar intervertebral disc 97896843 M51.36 Congestive heart failure 54083612 I50.89 Morbid obesity 467786251 E66.01 Psoriatic arthritis 1563 98988 L40.50 Crohn's disease 19600216 K50.90 [id number] DO [facility] [address] [facility] [address] 02/08/2024 16:03:32 02/10/2024 08:57:21 Congestive heart failure 86701864 I50.89 Psoriatic arthritis 1563 76168 L40.50 Obstructiv e sleep apnea syndrome 17526860 G47.33 Health Concerns Section Related Observation LastModified by Organization Detai ls LastModified Time None Recorded Concern Status LastModified by Organization Details LastModified Time None Recorded Advance Directives Directive None Recorded Payers Encounter Date Sequence Insurance Name Policy Number Policy Damon Covered Member ID Damon Member ID Guarantor Name 11/26/2022 2 [place] Hector Hernández Isaiah [id number] Hector Isaiah 11/26/2022 1 [place] Hector Perezonte [id number] Hector Isaiah 06/06/2023 2 [place] Hector Hernández Isaiah [id number] Hector Isaiah 06/06/2023 1 [place] Hector Hernández Isaiah [id number] Hector Isaiah 08/17/2023 2 [place] Hector Hernández Isaiah [id number] Hector Isaiah 08/17/2023 1 [place] Hector Edgar Isaiah [id number] Hector Isaiah 10/19/2023 2 [place] Hector Hernández Isaiah [id number] Hector Isaiah 10/19/2023 1 [place] Hector Edgar Isaiah [id number] Hector Isaiah 02/08/2024 2 [place] Hector Edgar Isaiah [id number] Hector Isaiah 02/08/2024 1 [place] Hector Colon [id number] Hector Colon Notes Date Note Type Note Provider Name and Address Organization Details Recorded Time 3 text/htm l here for rechk overall is doing okrelates that he is not having cpno sob unless exert uses cpapbowels are goodbladder okarthritis is what is kicking his ass and state s he is quite frustrated with this at times Garry Graves DO [address] [place], [address], [facility] 11/26/2022 10:52:15 4 text/htm l Pre-OpReported bypatient.Surgery to be Performed:carpal tunnel surgery (bilaterally) and both elbows (biopsy) with Dr. Colin at [facility] Severity:severe Risk Factorsno cognitive impairment; no functional [...] Support:adequate assistance at home () cleared by hob grinder and house fellow SAI PIERCE [address] [place], [address], [facility] 06/06/2023 10:36:13 4 text/htm [...] should be restarted Garry Graves DO [address] [place], [address], [facility] 08/17/2023 11:35:26 4 text/htm [...] controlled no bleeding Garry Graves DO [address] [place], [address], [facility] 10/19/2023 14:23:32 4 text/htm l here for rechk and is doing jessica MTX and recent lab shows ongoing anemia creat is still ok overallarhtritis is bothering himcrohns is quiet ]'gout has been the issue uric acid is 7.2 Garry Graves DO [address] [place], [address], [facility] 02/09/2024 23:02:06
--- OUTSIDE RECORDS SUMMARY | 2024-05-18 15:59 | XMS_ITS | Patient Health Record ---
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) Active confirmed Problem Acquired hammer toe of right foot (1959235124511631) Other hammer toe(s) (acquired), right foot (M20.41) Active confirmed Problem Acquired hammer toe of left foot (7346145379407228) Other hammer toe(s) (acquired), left foot (M20.42) Active confirmed Problem 02314638 Venous insufficiency (I87.2) Active confirmed Vital Signs Height 5 ft 11 in in 08/25/2023 Weight 334 lbs 08/25/2023 BMI 46.58 kg/m2 08/25/2023 Encounters Encounter Location Date Provider Diagnosis [address] [address] 08/25/2023 Solomon Ventura Plantar fascial fibromatosis M72.2 [...] edema R60.0 and Venous insufficiency I87.2 [facility] [address] [address] 09/28/2023 Solomon Ventura Assessments Encounter Date Diagnosis [...] Details Provider Name:Daisy collado, 08/30/2024 11:15:00 AM, [address] [place] [address], [phone], Insurance Providers Payer Name Payer Address Payer Phone Subscriber Number Group Number Insured Name Patient Relationship to Insured Coverage Start Date Coverage End Date Medicare National [employer] [address] [place] [address] [id number] Hector Colon Self - patient is the insured Medical (General) History Medical History History ICD Code transfusions diverticulosis chicken pox back, hip, knee pain chron's Surgical History Surgery Date(Month/Year) colon/intestinal surgery heart surgery unspecified kymberly
== END 2024-05-18 14:38 | disposition home or self-care (01) ==
LOC: HO.US 14:37
PROVIDERS: Visit Provider Internal Medicine Hypertension Specialist
DX: I12.9 Hypertensive chronic kidney disease with stage 1 through stage 4 chronic kidney disease, or unspecified chronic kidney disease (principal); N18.31 Chronic kidney disease, stage 3a
CPT/HCPCS: 76775

== ENCOUNTER → 2024-05-18 14:40 | Outpatient (BNV) | payer MEDICARE, MEDICAID, SELFPAY | PROVIDERS: Visit Provider Radiology Diagnostic Radiology | DX: N28.1 Cyst of kidney, acquired (principal) | CPT/HCPCS: 76775 ==

== ENCOUNTER 2024-05-22 09:45 | Outpatient (AMB) | payer OTHER, SELFPAY ==
[2024-05-22 09:54] VITALS: BP 128/52; PULSE 61; BMI 45.8
--- NOTE | 2024-05-22 09:54 | MHC.OFFVIS ---
Vital Signs 05/22/24 09:54 Height 5 ft 11 in Weight 328 lb 7.82 oz BMI 45.8 BP 128/52 L Blood Pressure Location Lt brachial Position Sitting Pulse 61 Pulse Source Monitor Intake Visit Reasons: F/U holter (r/s fr 05/02) Restaurant Expeditor Required: No International Nurse: International Nurse Present Allergies tramadol Allergy (Mild, Verified 05/22/24 09:59) Dizziness Medication List - Last Reconciled 05/22/24 by Sofia Salazar NP-C acetaminophen ER (Tylenol Arthritis Pain) 1,300 mg PO Q8H allopurinol 100 mg PO DAILY allopurinol 100 mg PO DAILY allopurinol 300 mg PO DAILY amlodipine 10 mg PO QAM apixaban (Eliquis) 5 mg PO BID ferrous sulfate 324 mg PO DAILY folic acid 1 mg PO DAILY furosemide 80 mg PO QAM insulin syringe-needle U-100 (BD Insulin Syringe) Use once weekly with methotrexate losartan 100 mg PO QAM methotrexate sodium 60 mg subcut QWEEK multivitamin 1 tab PO DAILY pantoprazole 40 mg PO QAM pleshuoi-hniy-gekan-oreg-capry 100 mg-150 mg- 50 mg-150 mg 1 cap PO DAILY vedolizumab (Entyvio) 300 mg IV Q8W HPI HPI F/U holter (r/s fr 05/02): Details: Hector is a 69-year-old male with past medical history of morbid obesity, hypertension, remote ASD closure, persistent atrial fibrillation, chronic right heart failure, sleep apnea with CPAP use who presents for follow-up after recent Holter monitor. Today he reports he has been feeling very well since his last visit in October. He offers no physical complaints. He denies chest discomfort at rest or with activity. He denies shortness of breath, PND, orthopnea or edema. No palpitations, lightheadedness, presyncope, syncope, falls. He admits to being mostly sedentary. He does light activities around the house. Is compliant with meds. No bleeding issues reported. is present. [facility] Medical History (Updated 05/22/24 @ 10:57 by Sofia Salazar, NATURAL RESOURCES PROFESSORCaitlynC) COVID-19 Claustrophobia Arthritis Atrial septal defect Atrial fibrillation Gouty tophi of joint Restrictive lung disease Cervical spondylosis Epidermal cyst Essential hypertension Chronic right heart failure Crohn's disease TIFFANY on CPAP Morbid obesity Surgical History Hx of carpal tunnel repair History of colon resection History of excision of epidermal inclusion cyst (~03/27/21) History of esophagogastroduodenoscopy (EGD) Status post surgical atrial septal defect closure History of colonoscopy Family History Father Hx of Crohn's disease Cancer Mother Hx of type 2 diabetes mellitus Social History Are you a primary healthcare management consultant to a significant other at home: No Do you presently have visiting nurse or other home services: No Alcohol intake: never Comment: counts correct Patient Tobacco Use Status: Former Tobacco user Tobacco use type: Cigarette Years Smoked: 10 +/- Current occupational status: retired Current occupation: right hand dominant Review of Systems Const All systems reviewed & are unremarkable except as noted in HPI and below ENT Denies dizziness Card Denies chest pain, Denies chest pain at rest, Denies chest pain with activity, Denies rapid heart rate, Denies pedal edema, Denies edema, Denies leg edema, Denies lightheadedness, Denies palpitations, Denies dyspnea, Denies dyspnea on exertion and Denies orthopnea Resp Denies cough, Denies dyspnea and Denies dyspnea on exertion GI Denies hematochezia and Denies change in stool character Musc Denies abnormal gait, Denies limited range of motion, Denies muscle cramps, Denies muscle weakness, Denies numbness, Denies radiating pain into limb, Denies stiffness and Denies tingling Neuro Denies abnormal gait, Denies dizziness, Denies numbness and Denies tingling Endo Denies palpitations Physical Exam Vital Signs: BMI result Body Mass Index 45.8 Const Other: morbidly obese General: cooperative, healthy appearing, comfortable and no acute distress Orientation/consciousness: patient oriented x3 Neck Neck: Yes normal visual inspection and Yes no JVD Resp Effort & Inspection: normal respiratory effort Auscultation: clear to auscultation bilaterally, no crackles, no rales, no rhonchi and no wheezes Cardio Jugular venous distension: no JVD Rate: regular rate Rhythm: regular rhythm Heart sounds: S1 normal heart sound present, S2 normal heart sound present, no murmurs and no rubs Neuro General: patient oriented x3 Extrem General: Yes normal to inspection and No no pedal edema Psych Appearance: grossly normal Mental Status: mental status grossly normal Speech and movement: Normal speech and movement present Office Procedures EKG Details: Today, read by me, atrial fibrillation, 2 PVCs, right bundle branch block, left posterior fascicular block, can not exclude septal Q-wave, rate 61 [id number], Complete Assessment & Plan Assessment & Plan (1) Atrial fibrillation: Comment: persistant Code(s): I48.91 - Unspecified atrial fibrillation Category: Medical Plan: History of persistent atrial fibrillation. He runs a slow ventricular response in his not on any rate slowing agents. Holter monitor done 04/17/2024 shows atrial fibrillation with average heart rate 51, heart rate range 40 to 96, PVCs 9.6% of the time and 110 beat run of NSVT. He denies any concerning symptoms. Pulse is irregularly irregular on exam. Will continue to avoid all rate slowing medications. He is on Eliquis for anticoagulation. No bleeding issues reported. Labs done 05/14/2024 showed creatinine 1.46, labs 04/10/2024 showed hematocrit 32.1. No changes made. Instructed to notify this office if he has new symptoms of fatigue, lightheadedness, weakness. His heart rate is slow but he has no indication for pacemaker placement at this time. (2) NSVT (nonsustained ventricular tachycardia): Code(s): I47.29 - Other ventricular tachycardia Category: Medical Plan: Recent Holter monitor as above showing brief episode of NSVT. No symptoms were reported. Last echo 06/24/2023 showed normal EF. Cardiac catheterization last year showed normal coronary arteries. Unable to start rate slowing medications. Will continue to follow. (3) TIFFANY on CPAP: Comment: KNOWN CASE OF SEVERE OBSTRUCTIVE SLEEP APNEA. Code(s): G47.33 - Obstructive sleep apnea (adult) (pediatric); Z99.89 - Dependence on other enabling machines and devices Category: Medical Plan: He wears CPAP each night and reports compliance. (4) Chronic right heart failure: Code(s): I50.812 - Chronic right heart failure Category: Medical Plan: Known history of chronic right heart failure. Last echo 06/24/2023 showed EF 60-65%, normal valves, foyl-ls-gwkifgys decrease in the RV function. On exam today he does not appear fluid overloaded. Signs and symptoms of heart failure reviewed with him. No med changes made. (5) Morbid obesity: Comment: IT IS A CHRONIC PROBLEM, HE IS WELL AWARE OF THIS ISSUE. Code(s): E66.01 - Morbid (severe) obesity due to excess calories Category: Medical Plan: Benefits a weight loss reviewed with him. He states understanding. He is not engaging in a routine exercise at this time. Plan Time spent on chart review, documentation, interview and assessment Medications: Changed From allopurinol Combine with allopurinol 300 mg tablet for a total of 500 mg daily 200 mg PO DAILY 90 tabs 1RF To allopurinol Combine with allopurinol 300 mg tablet for a total of 500 mg daily 100 mg PO DAILY Coding Level of Care Code Est Pt Level 4 (37893) Complex EM visit Add On G2211 Diagnoses Atrial fibrillation I48.91 NSVT (nonsustained ventricular tachycardia) I47.29 TIFFANY on CPAP G47.33; Z99.89 Chronic right heart failure I50.812 Morbid obesity E66.01 CPT Codes EKG - CPT: [id number], Complete ([id number]) Time Spent (min) 30
--- OUTSIDE RECORDS SUMMARY | 2024-05-22 10:11 | XMS_ITS | Patient Health Record ---
[facility] Address [address] [place] [address] Care Team Providers Care Carpet Binder Name Role Phone Star SEGURA, Garry Primary Care Provider Daisy George Unavailable [phone] Lorenzo Solomon Unavailable [phone] Allergies Allergen (clinical drug ingredient) Drug/Non Drug [...] primary osteoarthritis of the ankle and/or foot (889025048) Primary osteoarthritis, left ankle and foot (M19.072) Active confirmed Problem Plantar fascial fibromatosis (26355998) Plantar 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) Active confirmed Problem Acquired hammer toe of right foot (5593290656178440) Other hammer toe(s) (acquired), right foot (M20.41) Active confirmed Problem Acquired hammer toe of left foot (5824298596808450) Other hammer toe(s) (acquired), left foot (M20.42) Active confirmed Problem 55606663 Venous insufficiency (I87.2) Active confirmed Vital Signs Height 5 ft 11 in in 08/25/2023 Weight 334 lbs 08/25/2023 BMI 46.58 kg/m2 08/25/2023 Encounters Encounter Location Date Provider Diagnosis [address] [address] 08/25/2023 Solomon Ventura Plantar fascial fibromatosis M72.2 [...] Localized edema R60.0 and Venous insufficiency I87.2 [facility] [address] [address] 09/28/2023 Solomon Ventura Assessments Encounter Date Diagnosis [...] Provider Name:Daisy collado, 08/30/2024 11:15:00 AM, [address] [place] [address], [phone], Insurance Providers Payer Name Payer Address Payer Phone Subscriber Number Group Number Insured Name Patient Relationship to Insured Coverage Start Date Coverage End Date Medicare [employer] [address] [place] [address] [id number] Hector Colon Self - patient is the insured Medical (General) History Medical History History ICD Code transfusions diverticulosis chicken pox back, hip, knee pain chron's Surgical History Surgery Date(Month/Year) colon/intestinal surgery heart surgery unspecified kymberly
--- OUTSIDE RECORDS SUMMARY | 2024-05-22 10:11 | XMS_ITS ---
Author [facility] Address [address] [place] [address] Care Team Providers Care Iv Therapy Nurse Name Role Phone Garry Graves MD Primary Care Provider Daisy George Unavailable [phone] Solomon Ventura Unavailable [phone] Allergies Allergen (clinical drug ingredient) Drug/Non Drug [...] Problem Status W/U Status Risk Notes Problem [id number] Venous insufficiency (I87.2) Active confirmed Vital Signs Height 5 ft 11 in in 08/25/2023 Weight 334 lbs 08/25/2023 BMI 46.58 kg/m2 08/25/2023 Encounters Encounter Location Date Provider Diagnosis [facility] [address] [place] [address] 08/25/2023 Solomon Ventura Plantar fascial fibromatosis M72.2 [...] Provider Name:Daisy collado, 08/30/2024 11:15:00 AM, [address] [place], [address], Progress Notes * Hector COLON KDOB:[birth year] (68 yo M)Acc No.[id number]:08/25/2023 Progress Note Patient:?Hector Colon Edgar Provider:?Solomon Ventura DPM :1955???Age:68 Y???Sex:Male Narciso e:08/25/2023 Address:[address] [place], [place] [id number] Pcp:Garry Graves MD Subjective: * Chief Complaints: * ???Last Visit PCP 08/17/23 * HPI: ???Heel pain:?Nature:?aching.?Location:?B/L, proximal plantar aspect of heel--left more severe than right.?Duration:?several years .?Onset/Cause:?unknown.?Course:?improved with use of upright walker over past sev months.?Aggrevated:?standing, walking.?Treatments:?rest, change in shoes, innersoles, corticosteriod injection; custom orthoses and aleve; rest helps the most; methotrexate for tx of arthritis; Dr. Balderrama--[facility] rheum.?Skin problems:?Nature:?dryness.?Location:?Heel/Rearfoot, B/L .?Duration:?several weeks.?Onset/Cause:?unknown.?Treatments:?medication ( Eucerin).?Severity/Quality:?moderate.?Foot [...] Exercise. ?Marital status: . ?Occupation: Retired-[employer]. * Medications:?TakingAllopurin ol 100 MG Tablet [...] DPM Date:? 024 Generated for Capo raman/Davidson/Agathaitting on:?05/22/2024 10:11 AM EST History and Physical Notes * [...] most; methotrexate for tx of arthritis; Dr. Balderrama--[facility] rheum Skin problems Nature: dryness Location: Heel/Rearfoot, [...]
--- OUTSIDE RECORDS SUMMARY | 2024-05-22 10:12 | XMS_ITS | Data Portability ---
Author Organization [facility] Home Service Address [address] [place] [address] Assessment Encounter Date Assessment Date Assessment LastModified by Organization Details LastModified Time 11/26/2022 11/26/2022 [id number] [place] [id number] (DEVELOPMENT DIRECTOR) MDM MODERATE MUST MEET 2 OUT OF [...] COVERED Not available 11/26/2022 10:48:44 08/17/2023 08/17/2023 [id number] [place] [id number] (DEVELOPMENT DIRECTOR) MDM MODERATE MUST MEET 2 OUT OF [...] COVERED Not available 08/17/2023 11:35:12 10/19/2023 10/19/2023 [id number] [place] [id number] (DEVELOPMENT DIRECTOR) MDM HIGH MUST MEET 2 OUT OF [...] reduce health risks and promote healthy living. [email or web address] Not available 02/08/2024 16:33:32 Plan of Treatment Reminders Order Date Submit Date Provider Last Modified By Organization Details Last Modified Time Details Appointments None recorded. Lab vitamin D, 25-hydroxy , total, serum 2022 023 [facility]A [facility], [address] [place] [address], [address], 3 12:56:38 vitamin B12, serum 2022 023 NELA [facility], [address] [place] [address], [address], 3 12:56:38 vitamin B1 (thiamine) , serum 2022 023 ROLI [facility], [address] [place] [address], [address], 3 11:16:12 folate, serum 2022 023 [facility], [address] [place], [address], 3 12:56:38 CMP, serum or plasma 2022 023 ATHENAFAX [facility], [address] [place], [address], 10:55:22 pro BNP (pro B-type natriureti c peptide), serum or plasma 2022 023 NELA [facility], [address] [place], [address], 12:56:38 CBC 2022 023 ATHENAX [facility], [address] [place], [address], 10:55:21 Referral None recorded. Procedures None recorded. Surgeries None recorded. Imaging None recorded. Medication Orders amoxicilli n 875 mg-potassi um clavulanat e 125 mg tablet 2023 024 [address] [id number], [address], [place], [id number], 13:55:23 Patient TargetsNo targets recorded. Patient Instructions Encounter Date Encounter Id Patient Instructions Last Modified By Organization Details Last Modified Time 08/17/2023 [id number] pulse oximetry* Not available 08/17/2023 11:13:27 10/19/2023 [id number] When You Want to Lose Weight: Care Instructions Not available 10/19/2023 14:23:11 crohn's disease: care instructions Not available 10/19/2023 14:23:11 heart failure: care instructions Not available 10/19/2023 14:23:11 learning about heart failure Not available 10/19/2023 14:23:11 02/08/2024 [id number] pulse oximetry* Not available 02/09/2024 23:02:02 sleep apnea: car e instructions Not available 02/09/2024 23:02:02 Reason for Referral None Reported. Results Created Date Observation Date Name Description Value Unit Range Abnormal Flag Note LastModifiedBy Organization Detail LastModifiedTime 08/17/19 24 08/17/2023 pulse oxime try* Result 97 Not Available [facility] [address] [facility] [address], [place], [address], 08/15/2023 14:00:34 02/08/20 24 02/08/2024 pulse oxime try* Result 97 Not Available [facility] [address] [facility] [address], [place], [address], 02/06/2024 12:00:52 02/01/20 23 01/28/2023 MRI, cervi nia spine , w/o contr ast No observ ation record ed. [facility] [address] [address], [place], [address], 01/31/2023 15:06:36 06/28/19 24 06/24/2023 US, echoc ardio gram No observ ation record ed. [facility], [place], [address], 08/17/2023 10:58:21 Result Notes None recorded. Problems Name Problem SNOMED Code Status Onset Date Resolution Date Notes Provider Name and Address Organization Details Recorded Time Crohn's disease 02147204 Active 2019 Garry Graves DO [address] [facility], [place], [address], [place] [facility] 0 11:51:44 Degenerati on of lumbar interverte bral disc 55658269 Active 2020 Garry Graves DO [address] [facility], [place], [address], [place] [facility] 10:47:53 Osteoarthr itis 716992884 Active 2021 Garry Graves, DO [address] [place] [address], [address], [facility] 2 15:14:41 Degenerati ve joint disease of hand 90400382 Active 2022 SAI PIERCE [address] [place] [address], [address], [facility] 3 15:28:27 COVID-19 761493785 Active 2023 Garry YvonneRory Graves, DO [address] [place] [address], [address], 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 4 11:11:39 Acute right otitis media 779709744 Active 2023 Garry Graves, DO [address] [place] [address], [address], [facility] 4 11:34:54 Psoriatic arthritis 467610868 Active 2023 Garry Graves, DO [address] [place] [address], [address], [facility] 4 14:16:12 Morbid obesity 321030163 Active 2017 Susan burgess [facility] 8 08:45:56 Congestive heart failure 96137783 Active 2017 Susan burgess [facility] Medicine 8 08:45:59 Obstructiv e sleep apnea syndrome 39638881 Active 2017 Susan burgess [facility] 8 08:46:05 Hypertensi ve disorder 68089779 Active 2017 Susan burgess [facility] Medicine 8 08:46:10 Problem Notes None recorded. Procedures Surgical History Date Name Laterality Status Provider Name and Address Organization Details Recorded Time 019 Corticosteroid Injection completed Garry RussellRory Lópezalexander, [address] [place], [address], [facility] 01/08/2019 10:11:59 Imaging Results Imaging Date Name Status LastModified by Organization Details LastModified Time 01/28/2023 MRI, cervical spine, w/o contrast completed [facility] [address] [facility] [address], [place], [address], 01/31/2023 15:06:36 06/24/2023 US, echocardiogram completed [facility] [address] [place] [address] [address], [place], [address], 08/17/2023 10:58:21 Procedure Notes None recorded. Medical Equipment None Reported. Allergies Allergen ID Allergen Name Allergen Category Reaction Reaction Severity Criticality Documentation Date Start Date Code Code System Note Provider Name and Address Organization Details Recorded Time 3160 meloxicam medicatio n diarrhea severe Not available 11/20/20182018 27096 RxNorm Garry Graves DO [address] [place], [address], [facility] 9 17:32:39 4698 tramadol medicatio n dizziness moderate Not available 01/06/2021 47331 RxNorm SAI PIERCE [address] [place], [address], [facility] Medicine 11:05:59 Medications Name Sig [...] Updated DateTime 3 177.8 cm 46.8 kg/m2 413424. 11 g 66 /min 97 % 97 % 140 mm[Hg] 90 mm[Hg] Jeane Dietrich Internal [facility] 3 10:29:37 Date Recorded Body height Body mass index (BMI) Body weight Heart rate Oxygen saturation Oxygen saturation in Arterial blood by Pulse oximetry Systolic blood pressure Diastolic blood pressure Provider Name and Address Organization Details Last Updated DateTime 4 177.8 cm 45.3 kg/m2 121190. 19 g 67 /min 97 % 97 % 140 mm[Hg] 70 mm[Hg] Jeane Peralta [facility] Internal [facility] 4 10:19:26 Date Recorded Body height Body mass index (BMI) Body weight Heart rate Oxygen saturation Oxygen saturation in Arterial blood by Pulse oximetry Systolic blood pressure Diastolic blood pressure Provider Name and Address Organization Details Last Updated DateTime 4 177.8 cm 44.9 kg/m2 737113. 41 g 55 /min 97 % 97 % 140 mm[Hg] 60 mm[Hg] Jeane Peralta [facility] Internal [facility] 4 10:44:51 Date Recorded Body height Body mass index (BMI) Body weight Heart rate Respiratory rate Oxygen saturation Oxygen saturation in Arterial blood by Pulse oximetry Systolic blood pressure Diastolic blood pressure Provider Name and Address Organization Details Last Updated DateTime 4 177.8 cm 44.9 kg/m2 448894. 41 g 52 /min 18 /min 99 % 99 % 132 mm[Hg] 66 mm[Hg] João Joyner [facility] Internal [facility] 4 13:57:16 Date Recorded Body height Body mass index (BMI) Body weight Heart rate Oxygen saturation Oxygen saturation in Arterial blood by Pulse oximetry Systolic blood pressure Diastolic blood pressure Systolic blood pressure Diastolic blood pressure Provider Name and Address Organization Details Last Updated DateTime 4 177.8 cm 44.9 kg/m2 439730. 41 g 54 /min 97 % 97 % 140 mm[Hg] 70 mm[Hg] 132 mm[Hg] 70 mm[Hg] Jeane [facility] Internal [facility] 4 16:35:02 Social History Question Answer Notes LastModified by Organizat ion Details LastModified Time Tobacco Smoking Status Former Smoker Not Available [facility] 03/18/2020 03:36:24 What Was The Date Of Your Most Recent Tobacco Screening? 02/08/2024 [email or web address] Information not available 02/08/2024 Do You Or [...] pneumococcal polysaccharide PPV23 0 [facility] 11:26:53 COVID-19, mRNA, LNP-S, PF, 30 mcg/0.3 mL dose 1 completed [facility] 11/25/2020 11:27:04 COVID-19, mRNA, LNP-S, PF, 30 mcg/0.3 mL dose 1 completed Nathalie Balicki [facility] 11/25/2020 11:27:11 Hep B, unspecified formulation 0 completed Nathalie Balicki [facility] 11/25/2020 11:27:24 Hep B, unspecified formulation 0 completed Nathalie Balicki [facility] 11/25/2020 11:27:31 Hep B, unspecified formulation 1 completed Nathalie Balicki [facility] 11/25/2020 11:27:37 Hep A, unspecified formulation 0 completed Nathalie Balicki [facility] 11/25/2020 11:27:57 Hep A, unspecified formulation 0 completed [facility] 11/25/2020 11:28:04 Hep A, unspecified formulation 1 completed [facility] 11/25/2020 11:28:12 COVID-19, mRNA, LNP-S, PF, 30 mcg/0.3 mL dose 1 completed Susan Florez [facility] 01/06/2021 09:14:20 Influenza, split virus, quadrivalent, preservative 1 completed Susan burgess [facility] 08/24/2021 10:36:11 Tdap 9 completed Susan burgess [facility] 01/17/2019 08:11:56 Past Encounters Encounter ID Performer Location Encounter Start Date Encounter Closed Date Diagnosis/Indication Diagnosis SNOMED-CT Code Diagnosis ICD10 Code Diagnosis Note [id number] Garyr Graves [facility] [address] [facility] [facility] [place] [address] 09/13/2017 10:56:44 09/13/2017 16:01:17 Hypertensive disorder 82425425 I10 bp stable cont same meds Congestive heart failure 29556034 I50.9 stable and without exacerbati ons is euvolemic Tenosynovi tis of wrist 105280066 M65.839 [id number] Garry Graves [facility] [address] [facility],[address] [facility] [place] [address] 01/25/2018 09:33:47 01/25/2018 10:14:56 Morbid obesity 493107933 E66.01 chronic illness and not working on it Hypertensive disorder 38 192719 I10 bp stable cont same meds Congestive heart failure 48165236 I50.9 stable and without exacerbati ons is euvolemic Obstructiv e sleep apnea syndrome 97430603 G47.33 stable and cont on [facility] cpap Screening for cardiovascular system disease 567178347 Z13.6 Edema of l ower extremity 613688282 R60.0 cont two tabs of lasix need to check K+ levels and creat [id number] Mary Jo Washington NP, S [facility] Internal [facility] [address] [facility],[place] [address] 05/23/2018 10:33:27 05/23/2018 16:49:35 Morbid obesity 801545767 E66.01 Work on weight loss Acute bronchitis 7566073 2 J20.9 Hypertensive disorder 38 072521 I10 mildly elevated, keep scheduled july appt Obstructiv e sleep apnea syndrome 63376291 G47.33 compliant with CPAP [id number] Garry Graves [facility] [address] [facility],[place] [address] 08/02/2018 08:56:16 08/02/2018 12:49:34 Obstructive sleep apnea syndrome 45072113 G47.33 stable and cont on [facility] cpap Hypertensive disorder 38 819821 I10 bp stable cont same meds Congestive heart failure 42965285 I50.9 stable and without exacerbati ons is euvolemic Morbid obesity 984787569 E66.01 chronic illness and not working on it Wrist joint pain 3007948 09 M25.539 recc refer he will consider appt with [place] nation [id number] Garry Graves [facility] [address] [facility], [place] [address] 11/20/2018 16:16:38 11/20/2018 17:38:10 Adverse reaction to drug 07538511 T50.905A severe GI response to daily use of meloxicam that was orderd by specialist will need to take probiotics culturelle Hypertensive disorder 38 277674 I10 bp stable cont same meds Congestive heart failure 16725181 I50.9 stable and without exacerbati ons is euvolemic [id number] August IKE Hernandez [facility] [address] [facility], [facility] [place] [address] 12/27/2018 10:47:48 12/27/2018 13:47:31 Body mass index 40+ - severely obese 886764128 Z68.42 Hypertensive disorder 38 984388 I10 stable Obstructiv e sleep apnea syndrome 24771334 G47.33 uses cpap every night Knee pain 43917131 M25.5 69 right lateral knee pain OA vs tendinitis mendieta consider PT in future [id number] Garry Graves [facility] [address] [facility], [place] [address] 01/08/2019 09:49:46 01/08/2019 10:20:43 Osteoarthritis of knee 663421906 M17.9 kenalog inj [id number] [facility] [address] [facility] [address], [place] [address] 02/07/2019 08:53:44 02/07/2019 10:48:03 Hypertensive disorder 24760355 I10 bp stable cont same meds Congestive heart failure 45948101 I50.9 stable and without exacerbati ons is euvolemic echo is done recently and is excellent per verbal report Chronic diarrhea 4596561 09 K52.9 major lab done GI f/u jarred have colonosc next nov Morbid obesity 455005716 E66.01 with the diarrhea [place] wgt [id number] Garry Graves [facility] [address] [facility],[place] [address] 05/07/2019 10:23:47 05/07/2019 10:53:59 Hypertensive disorder 64751551 I10 bp stable cont same meds Congestive heart failure 07558771 I50.9 stable and without exacerbati ons is euvolemic echo is done recently and is excellent per report Obstructiv e sleep apnea syndrome 67472130 G47.33 stable and cont on [facility] cpap Diarrhea 30225246 R19.7 None since colonoscop y Crohn's disease 89022989 K50.90 Biopsy/abd CT of GI showed low grade inflammati on suggestive of Crohn's Seeing GI in one week Daughter has Crohn's [id number] Garry Graves [facility] [address] [facility] [address] 08/17/2019 09:29:29 08/17/2019 12:16:51 Congestive heart failure 12654530 I50.9 stable and without exacerbati ons is euvolemic echo is done recently and is excellent per report Hypertensive disorder 38 375429 I10 bp stable cont same meds Obstructiv e sleep apnea syndrome 77763438 G47.33 stable and cont on [facility] cpap Microcytic anemia 591037 007 D50.9 will be needing to take iron tab will use wifes MVI wish to get iron studies but he wont go out to get lab [id number] Garry Graves DO [facility] Internal Medicine [address] [facility],[place] [address] 12/07/2019 08:58:03 12/07/2019 11:52:09 Congestive heart failure 96369666 I50.9 stable and without exacerbati ons is euvolemic echo is done recently and is excellent per report needs to renew his lasix no leg swelling Crohn's disease 59693498 K50.90 Biopsy/abd CT of GI showed low grade inflammati on suggestive of Crohn's Seeing GI in one week Daughter has Crohn's Hypertensive disorder 38 358324 I10 bp stable cont same meds Obstructiv e sleep apnea syndrome 21136649 G47.33 stable and cont on [facility] cpap [id number] Garry Graves DO [facility] Medicine [address] [facility],[place] [place] [address] 04/28/2020 08:45:16 04/28/2020 10:57:40 Congestive heart failure 57575475 I50.9 stable and without exacerbati ons is euvolemic echo is done recently and is excellent per report needs to renew his lasix no leg swelling Hypertensive disorder 38 131654 I10 bp stable cont same meds Obstructiv e sleep apnea syndrome 95202563 G47.33 stable and cont on his cpap Morbid obesity 149985557 E66.01 long discussion re prob with his eating states is at 334 Crohn's disease 92421753 K50.90 seen by GI and has been started on HUmira pt is feeling better and will be seeing GI appt in may Garry Graves DO [facility] [address] [facility],[place] [address] [place] [facility] [place] [address] 11/28/2020 11:06:02 11/28/2020 12:11:18 Hypertensive disorder 81525271 I10 bp stable cont same meds Congestive heart failure 08863560 I50.9 stable and without exacerbati ons is euvolemic echo is done recently and is excellent per report needs to renew his lasix no leg swelling Obstructiv e sleep apnea syndrome 04333967 G47.33 stable and cont on his cpap Hepatitis C screening 41 1764919 Z11.59 Morbid obesity 551313626 E66.01 long discussion re prob with his eating states is at 302 with the weight loss from the crohns Crohn's disease 69596726 K50.90 seen by GI and has been started on Entyvil IV infusion regimen pt is feeling better and will be seeing GI appt 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 6463904032 106 K50.018 we will have him see a rheumatolo gist [id number] SAI PIERCE [facility] Internal [facility] [address] [facility],[place] [address] 12/10/2020 09:52:05 12/10/2020 11:56:49 Neck pain 37003886 M54.2 will start on msk relaxer and tramadolfu with XR Torticollis 51866939 M43 .6 fu with MSK relaxer [id number] SAI PIERCE [facility] [address] [facility],[place] [address] 01/06/2021 09:05:10 01/06/2021 12:01:51 Epidermoid cyst of skin 802305775 L72.3 will fu with general surgeon for removal Degenerati on of cervical intervertebral disc 09401812 M50.30 will fu with PVSS [id number] SAI PIERCE [facility] [address] [facility],[place] [address] 03/16/2021 11:22:42 03/16/2021 12:41:23 Low back pain 121013238 M54.59 will fu with XR to start on his low back Abnormal gait 04592055 R 26.9 will fu with order for stand up walker Bursitis o f olecranon of right elbow 0824452742 79009 [address]70[address] Bhardwaj about the pred taper [id number] Garry Graves DO [facility] [address] [facility],[place] [address] 04/20/2021 10:25:43 04/20/2021 12:42:30 Hypertensive disorder 14787722 I10 bp stable cont same meds Congestive heart failure 10447265 I50.9 stable and without exacerbati ons is euvolemic echo is done recently and is excellent per report needs to renew his lasix no leg swelling Obstructiv e sleep apnea syndrome 00039602 G47.33 stable and cont on his cpap Crohn's disease 60495474 K50.90 seen by GI and has been started on Entyvil IV infusion regimen pt is feeling better and will be seeing GI appt Degenerati on of lumbar intervertebral disc 09577625 M51.36 Hearing loss 59737787 H9 0.3 will need audiogram 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 4354631752 105 M48.02 following sports med and undergoing PT will follow and obtain an emg nct if worsening [place] the [place] [id number] Garry Graves [facility] [address] [facility], [place] [place] [facility] [place] [address] 08/24/2021 10:25:17 08/24/2021 11:40:12 Hypertensive disorder 71897484 I10 bp stable cont same meds Congestive heart failure 94757039 I50.9 stable and without exacerbati ons is euvolemic echo is done recently and is excellent per report needs to renew his lasix no leg swelling Morbid obesity 664945394 E66.01 long discussion re prob with his eating states is at 322 \told him this will lower his life expectancy s Crohn's disease 71377088 K50.90 seen by GI and has been started on Entyvil IV infusion regimen pt is feeling better and will be seeing GI appt [id number] Garry Graves [facility] [address] [facility], [address] [place] [facility] [place] [address] 12/11/2021 14:47:03 12/11/2021 16:18:04 Hypertensive disorder 68871457 I10 bp stable cont same meds Depression screening 171 552390 Z13.31 negative PHQ2 screening at today's visit Crohn's disease 57183444 K50.90 seen by GI and= is on methotrexa te sq injection pt is feeling better and will be seeing GI appt Congestive heart failure 56664483 I50.9 stable and without exacerbati ons is euvolemic echo is done recently and is excellent per report needs to renew his lasix no leg swelling Osteoarthritis 682054599 M19.90 he is still struggling with the arthralgia [id number] Garry Graves [facility] [address] [facility], [place] [address] 04/30/2022 10:54:24 04/30/2022 15:17:59 Congestive heart failure 54540516 I50.9 stable and without exacerbati ons is euvolemic echo is done recently and is excellent per report needs to renew his lasix no leg swelling Hypertensive disorder 38 560214 I10 bp stable cont same meds Osteoarthritis 959844195 M19.90 he is still struggling with the arthralgia encouraged to walk Obstructiv e sleep apnea syndrome 13442060 G47.33 stable and cont on his cpap but wondering about a new device for the chest??? [id number] Garry Graves DO [facility] [address] [facility] [address] 11/26/2022 10:17:44 11/26/2022 11:32:27 Congestive heart failure 02237798 I50.9 stable and without exacerbati ons is euvolemic echo is done recently and is excellent per report needs to renew his lasix no leg swelling Hypertensive disorder 38 318720 I10 bp stable cont same meds Morbid obesity 150538272 E66.01 he has lost 8 lbs Crohn's disease 13648614 K50.90 seen by GI and= is on methotrexa te sq injection pt is feeling better and will be following GI appt [id number] SAI PIERCE [facility] [address] [facility],[place] [address] [place] [facility] [address] 06/06/2023 10:12:51 06/06/2023 10:41:44 Morbid obesity 853497285 E66.01 stable Hypertensive disorder 38 994832 I10 cleared by cardiology Obstructiv e sleep apnea syndrome 21858702 G47.33 stable, no changes Congestive heart failure 93737376 I50.89 stable per cardiology Pre-surger y evaluation 281307520 Z01.818 The patient was seen in the office today for pre-op evaluation . All medical conditions on patient's problem list were addressed and are currently stable, no interventi on needed at this time. Based on history and physical performed, the patient is cleared for surgery. [id number] Garry Graves DO [facility] [facility] [address] [facility],[place] [facility] [address] 08/17/2023 10:37:50 08/17/2023 11:36:58 Crohn's disease [id number] K50.90 seen by GI and= is on methotrexa te sq injection pt is feeling better and will be following GI appt Congestive heart failure [id number] I50.89 stable and without exacerbati ons his recent cardiac work up was ecellent including echo and heart cath is euvolemic needs to renew his lasix no leg swelling Hypertensive disorder 38 652757 I10 bp stable cont same meds Morbid obesity [id number] E66.01 no further wgt loss Chronic to phaceous gout [id number] M1A.9XX1 Acute righ t otitis media [id number] H66.91 [id number] Garry Graves [facility] [address] [facility],[place] [facility] [place] [address] 10/19/2023 13:46:51 10/19/2023 14:34:25 Acute right otitis media [id number] H66.91 has now resolved discussed in depth how TM can get infected Depression screening 171 044651 Z13.31 negative PHQ2 screening at today's visit Hypertensive disorder 38 414405 I10 bp stable cont same meds Degenerati on of lumbar intervertebral disc 46229854 M51.36 still about the same but he is manging Congestive heart failure 42085657 I50.89 stable and without exacerbati ons his recent cardiac work up was ecellent including echo and heart cath is euvolemic needs to renew his lasix no leg swelling Morbid obesity 373187470 E66.01 no further wgt loss Psoriatic arthritis 1563 68569 L40.50 having a hard time getting this controlled hurts to walk any distancedo es have a handicap platehas been on MTX for this Crohn's disease 61544856 K50.90 seen by GI and= is on methotrexa te sq injection an stable with Entyvio pt is feeling better and will be following GI appt [id number] Garry Graves, [facility] Internal Medicine [address] [facility] [address] 02/08/2024 16:03:32 02/10/2024 08:57:21 Congestive heart failure [id number] I50.89 stable and without exacerbati ons his recent cardiac work up was ecellent including echo and heart cath is euvolemic needs to renew his lasix no leg swelling Psoriatic arthritis 1563 85675 L40.50 having a hard time getting this controlled hurts to walk any distancedo es have a handicap platehas been on MTX for this Obstructiv e sleep apnea syndrome [id number] G47.33 stable and cont on his cpap but wondering about a new device for the chest??? Health Concerns Section Related Observation LastModified by Organization Detai ls LastModified Time None Recorded Concern Status LastModified by Organization Details LastModified Time None Recorded Advance Directives Directive None Recorded Payers Encounter Date Sequence Insurance Name Policy Number Policy Damon Covered Member ID Damon Member ID Guarantor Name 11/26/2022 2 [place] Hector Edgar Isaiah [id number] Hector Isaiah 11/26/2022 1 [place] [facility] Hector Edgar Isaiah [id number] Hector Isaiah 06/06/2023 2 [place] Hector Edgar Isaiah [id number] Hector Isaiah 06/06/2023 1 [place] [facility] Hector K Isaiah [id number] Hector Isaiah 08/17/2023 2 [place] Hector Edgar Isaiah [id number] Hector Isaiah 08/17/2023 1 [place] [facility] Hector K Isaiah [id number] Hector Isaiah 10/19/2023 2 [place] Hector Edgar Isaiah [id number] Hector Isaiah 10/19/2023 1 [place] [facility] Hector K Isaiah [id number] Hector Isaiah 02/08/2024 2 [place] Hector Edgar Isaiah [id number] Hector Isaiah 02/08/2024 1 [place] [facility] Hector K Isaiah [id number] Hector Isaiah Notes Date Note Type Note Provider Name and Address Organization Details Recorded Time 3 text/htm l here for ambreen overall is doing okrelates that he is not having cpno sob unless exert uses cpapbowels are goodbladder okarthritis is what is kicking his ass and state s he is quite frustrated with this at times Garry Graves, DO [address] [facility], [place], [address], [facility] 11/26/2022 10:52:15 4 text/htm l Pre-OpReported bypatient.Surgery to be Performed:carpal tunnel surgery (bilaterally) and both elbows (biopsy) with Dr. 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 06/06/2023 10:36:13 4 text/htm [...] mtx should be restarted Garry Graves DO [address] [place] [address], [phone], [facility] 08/17/2023 11:35:26 4 text/htm [...] controlled no bleeding Garry Graves DO [address] [place], [address], [facility] 10/19/2023 14:23:32 4 text/htm l here for rechk and is doing jessica MTX and recent lab shows ongoing anemia creat is still ok overallarhtritis is bothering himcrohns is quiet ]'gout has been the issue uric acid is 7.2 Garry Graves DO [address] [place], [address], [facility] 02/09/2024 23:02:06
== END 2024-05-22 10:24 | disposition home or self-care (01) ==
PROVIDERS: PCP Internal Medicine; Visit Provider Nurse Practitioner Family
DX: I48.91 Unspecified atrial fibrillation (principal); I47.29 Other ventricular tachycardia; G47.33 Obstructive sleep apnea (adult) (pediatric); Z99.89 Dependence on other enabling machines and devices; I50.812 Chronic right heart failure; E66.01 Morbid (severe) obesity due to excess calories
CPT/HCPCS: 93010; 99214; G2211

== ENCOUNTER → 2024-05-22 09:45 | Outpatient (BNVA) | payer OTHER, SELFPAY | PROVIDERS: PCP Internal Medicine; Visit Provider Nurse Practitioner Family | DX: I48.91 Unspecified atrial fibrillation (principal); I47.29 Other ventricular tachycardia; I50.812 Chronic right heart failure; G47.33 Obstructive sleep apnea (adult) (pediatric); E66.01 Morbid (severe) obesity due to excess calories; Z68.42 Body mass index [BMI] 45.0-49.9, adult | CPT/HCPCS: 93005; 99212 ==

== ENCOUNTER 2024-06-12 10:54 | Outpatient (AMB) | payer MEDICARE, MEDICAID, SELFPAY ==
[2024-06-12 10:55] VITALS: BP 152/70; PULSE 54; O2SAT 97; BMI 46.2
--- NOTE | 2024-06-12 10:55 | HO.NEPHOV ---
Vital Signs 06/12/24 10:55 06/12/24 11:13 Height 5 ft 11 in Weight 331 lb BMI 46.2 BP 152/70 H 130/70 Blood Pressure Location Lt brachial Lt brachial Position Sitting Sitting Pulse 54 Pulse Source Pulse Oximeter Pulse Oximetry (%) 97 Oxygen Delivery Method Room Air Intake Visit Reasons: CKD/ Conf Medical Administrative Specialist Required: No Accompanied by: Spouse Allergies tramadol Allergy (Mild, Verified 06/12/24 10:59) Dizziness Medication List - Last Reconciled 06/12/24 by lOegario Diggs MD acetaminophen ER (Tylenol Arthritis Pain) 1,300 mg PO Q8H allopurinol 100 mg PO DAILY allopurinol 300 mg PO DAILY allopurinol 300 mg PO DAILY amlodipine 10 mg PO QAM apixaban (Eliquis) 5 mg PO BID ferrous sulfate 324 mg PO DAILY folic acid 1 mg PO DAILY furosemide 80 mg PO QAM insulin syringe-needle U-100 (BD Insulin Syringe) Use once weekly with methotrexate losartan 100 mg PO QAM methotrexate sodium 60 mg subcut QWEEK multivitamin 1 tab PO DAILY pantoprazole 40 mg PO QAM wzjcmgsl-jpvo-rrswd-oreg-capry 100 mg-150 mg- 50 mg-150 mg 1 cap PO DAILY vedolizumab (Entyvio) 300 mg IV Q8W HPI Comments Details: Sheyla is a pleasant 68-year-old man with a history of longstanding hypertension and Crohn's disease who was found to have recent elevation serum creatinine. Back in 2022 serum creatinine was around 1.05-1.17 mg/dL. Since June of 2023 there has been a gradual increase in serum creatinine and the recent creatinine was 1.55 as of 04/10/2024. He is on Lasix 80 mg once a day. There has been no recent change in antihypertensive medications. He has a history of Crohn's disease. 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 He is currently on methotrexate. History of gout and he is on allopurinol. History of restrictive lung disease History of obstructive sleep apnea on CPAP. History of moderate right heart failure by echocardiogram Does not take any NSAIDs or other nephrotoxic agents. [facility] Medical History (Updated 05/22/24 @ 10:57 by Sofia Salazar, KIERSTEN-C) COVID-19 Claustrophobia Arthritis Atrial septal defect Atrial fibrillation Gouty tophi of joint Restrictive lung disease Cervical spondylosis Epidermal cyst Essential hypertension Chronic right heart failure Crohn's disease TIFFANY on CPAP Morbid obesity Surgical History Hx of carpal tunnel repair History of colon resection History of excision of epidermal inclusion cyst (~03/27/21) History of esophagogastroduodenoscopy (EGD) Status post surgical atrial septal defect closure History of colonoscopy Family History Father Hx of Crohn's disease Cancer Mother Hx of type 2 diabetes mellitus Social History Are you a primary pet caregiver to a significant other at home: No Do you presently have visiting nurse or other home services: No Alcohol intake: never Comment: counts correct Patient Tobacco Use Status: Former Tobacco user Tobacco use type: Cigarette Years Smoked: 10 +/- Current occupational status: retired Current occupation: right hand dominant Physical Exam Vital Signs: Last Vital Signs Pulse 54 06/12/24 10:55 BP 130/70 06/12/24 11:13 Pulse Ox 97 06/12/24 10:55 Oxygen Delivery Method Room Air 06/12/24 10:55 BMI result Body Mass Index 46.2 Comfortable Neck supple no JVD. Lungs entry equal no rales. Heart S1-S2 heard no gallop or rub. Abdomen soft nontender. Neuro alert awake oriented. No asterixis. Extremities no edema. Results Reviewed Results Reviewed: Right kidney measures 12.0 x 5.2 x 6.6 cm in size. There is a 3.0 x 2.3 x 2.1 cm simple cyst within the interpolar region of the right kidney. No solid mass, stone, or hydronephrosis. Left kidney measures 11.3 x 5.6 x 5.7 cm in size. There is a partially exophytic simple cyst off the interpolar region of the left kidney measuring 7.9 x 5.4 x 6.2 cm in size. No solid mass or hydronephrosis. Incidental note is made of enlargement of the spleen measuring up to 17 cm in long axis. Moderate-sized splenule is also seen. Impression: 1. Simple cysts within both kidneys. 2. Incidentally noted splenomegaly. Nephrology Results: Sodium 142 mmol/L (135-145) 05/14/24 Potassium 4.8 mmol/L (3.3-5.1) 05/14/24 Chloride 107 mmol/L (96-108) 05/14/24 Carbon Dioxide 24 mmol/L (22-29) 05/14/24 BUN 30 mg/dL (9-16) H 05/14/24 Creatinine 1.46 mg/dL (0.5-1.4) H 05/14/24 Calcium 9.5 mg/dL (8.4-10.2) 05/14/24 Urine Protein Negative mg/dL (Neg-Trace) 05/14/24 Urine Creatinine 132.64 mg/dL 05/14/24 Renal US 05/19/24 Assessment & Plan Assessment & Plan (1) CKD (chronic kidney disease): Code(s): N18.9 - Chronic kidney disease, unspecified Category: Medical Qualifiers: Chronic kidney disease stage: stage 3 (moderate) Chronic kidney disease stage 3 subtype: stage 3a (GFR 45-59) Qualified Code(s): N18.31 - Chronic kidney disease, stage 3a Plan 68-year-old man with chronic kidney disease and superimposed JOSE GUADALUPE in the setting of longstanding hypertension, Crohn's disease, obesity. Obstructive sleep apnea and right heart failure. He has CKD stage 3. Renal function remains unchanged over the last few months. No evidence of obstruction based on ultrasonogram. 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 The bump in creatinine he has not occurred until 2023. He is on high dose of diuretics. Clinically appears euvolemic. At present I have we will continue the current dose of diuretics. Encouraged to stay on low-sodium diet. Continue to avoid nephrotoxic agents including NSAIDs. Given the degree of renal failure I will decrease allopurinol from 400 mg down to 300 mg. Check uric acid level prior to next visit. Orders: Orders Complete Blood Count Auto Diff 2 Months N1.31 - Chronic kidney disease, stage 3a Basic Metabolic Panel 2 Months N18.31 - Chronic kidney disease, stage 3a Uric Acid 2 Months N18.31 - Chronic kidney disease, stage 3a Coding Level of Care Code Est Pt Level 4 (73628) Diagnoses Stage 3a chronic kidney disease N18.31 Chronic kidney disease stage: stage 3 (moderate) Chronic kidney disease stage 3 subtype: stage 3a (GFR 45-59)
[2024-06-12 11:13] VITALS: BP 130/70
--- OUTSIDE RECORDS SUMMARY | 2024-06-12 12:04 | XMS_ITS | Patient Health Record ---
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) Active confirmed Problem Acquired hammer toe of right foot (9285617082227433) Other hammer toe(s) (acquired), right foot (M20.41) Active confirmed Problem Acquired hammer toe of left foot (1271598668105283) Other hammer toe(s) (acquired), left foot (M20.42) Active confirmed Problem 99140269 Venous insufficiency (I87.2) Active confirmed Vital Signs Height 5 ft 11 in in 08/25/2023 Weight 334 lbs 08/25/2023 BMI 46.58 kg/m2 08/25/2023 Encounters Encounter Location Date Provider Diagnosis [address] [address] 08/25/2023 Solomon Ventura Plantar fascial fibromatosis M72.2 [...] Localized edema R60.0 and Venous insufficiency I87.2 [facility] [address] [address] 09/28/2023 Solomon Ventura Assessments Encounter Date Diagnosis [...] Details Provider Name:Daisy collado, 08/30/2024 11:15:00 AM, [address] [place] [address], [phone], Insurance Providers Payer Name Payer Address Payer Phone Subscriber Number Group Number Insured Name Patient Relationship to Insured Coverage Start Date Coverage End Date Medicare [employer] [address] [place] [address] [id number] Hector Colon Self - patient is the insured Medical (General) History Medical History History ICD Code transfusions diverticulosis chicken pox back, hip, knee pain chron's Surgical History Surgery Date(Month/Year) colon/intestinal surgery heart surgery unspecified kymberly
--- OUTSIDE RECORDS SUMMARY | 2024-06-12 12:04 | XMS_ITS | Data Portability ---
Author Organization [facility] Home Service Address [address] [place] [address] Assessment Encounter Date Assessment Date Assessment LastModified by Organization Details LastModified Time 11/26/2022 11/26/2022 [id number] [place] [id number] (JOINT FILLER) MDM MODERATE MUST MEET 2 OUT OF [...] COVERED Not available 11/26/2022 10:48:44 08/17/2023 08/17/2023 [id number] [place] [id number] (JOINT FILLER) MDM MODERATE MUST MEET 2 OUT OF [...] COVERED Not available 08/17/2023 11:35:12 10/19/2023 10/19/2023 [id number] [place] [id number] (JOINT FILLER) MDM HIGH MUST MEET 2 OUT OF [...] reduce health risks and promote healthy living. [email or web address] Not available 02/08/2024 16:33:32 Plan of Treatment Reminders Order Date Submit Date Provider Last Modified By Organization Details Last Modified Time Details Appointments None recorded. Lab vitamin D, 25-hydroxy , total, serum 2022 023 [facility]A [facility], [address] [place] [address], [address], 3 12:56:38 vitamin B12, serum 2022 023 NELA [facility], [address] [place] [address], [address], 3 12:56:38 vitamin B1 (thiamine) , serum 2022 023 Tickade [facility], [address] [place] [address], [address], 3 11:16:12 folate, serum 2022 023 F[facility], [address] [place], [address], 3 12:56:38 CMP, serum or plasma 2022 023 ATHENAFAX [facility], [address] [place], [address], 10:55:22 pro BNP (pro B-type natriureti c peptide), serum or plasma 2022 023 NELA [facility], [address] [place], [address], 12:56:38 CBC 2022 023 ATHENAX [facility], [address] [place], [address], 10:55:21 Referral None recorded. Procedures None recorded. Surgeries None recorded. Imaging None recorded. Medication Orders amoxicilli n 875 mg-potassi um clavulanat e 125 mg tablet 2023 024 [address] [id number], [address] [place], [place], [id number], 13:55:23 Patient TargetsNo targets recorded. Patient Instructions Encounter Date Encounter Id Patient Instructions Last Modified By Organization Details Last Modified Time 08/17/2023 [id number] pulse oximetry* Not available 08/17/2023 11:13:27 10/19/2023 [id number] When You Want to Lose Weight: Care Instructions Not available 10/19/2023 14:23:11 crohn's disease: care instructions Not available 10/19/2023 14:23:11 heart failure: care instructions Not available 10/19/2023 14:23:11 learning about heart failure Not available 10/19/2023 14:23:11 02/08/2024 [id number] pulse oximetry* Not available 02/09/2024 23:02:02 sleep apnea: car e instructions Not available 02/09/2024 23:02:02 Reason for Referral None Reported. Results Created Date Observation Date Name Description Value Unit Range Abnormal Flag Note LastModifiedBy Organization Detail LastModifiedTime 08/17/19 24 08/17/2023 pulse oxime try* Result 97 Not Available [facility] Internal Medicine [address] [facility] [address], [place], [address], 08/15/2023 14:00:34 02/08/20 24 02/08/2024 pulse oxime try* Result 97 Not Available [facility] Internal Medicine [address] [facility] [address], [place], [address], 02/06/2024 12:00:52 02/01/20 23 01/28/2023 MRI, cervi nia spine , w/o contr ast No observ ation record ed. [facility] [place] [address] [address], [place], [address], 01/31/2023 15:06:36 06/28/19 24 06/24/2023 US, echoc ardio gram No observ ation record ed. [facility], [place], [address], 08/17/2023 10:58:21 Result Notes None recorded. Problems Name Problem SNOMED Code Status Onset Date Resolution Date Notes Provider Name and Address Organization Details Recorded Time Crohn's disease 95541938 Active 2019 Garry Graves DO [address] [place] [address], [place], [address], [place] [facility] 0 11:51:44 Degenerati on of lumbar interverte bral disc 10470116 Active 2020 Garry Graves DO [address] [place] [address], [place], [address], [place] [facility] 10:47:53 Osteoarthr itis 915349355 Active 2021 Garry Graves DO [address] [place] [address], [address], [facility] 2 15:14:41 Degenerati ve joint disease of hand 37719800 Active 2022 SAI PIERCE [address] [place] [address], [address], [facility] 3 15:28:27 COVID-19 170167064 Active 2023 Garry Graves, DO [address] [place] [address], [address], [facility] 4 13:31:54 Chronic tophaceous gout 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 Active 2023 Garry Graves, DO [address] [place] [address], [address], [facility] 4 11:11:39 Acute right otitis media 158697844 Active 2023 Garry Graves, DO [address] [place] [address], [address], [facility] 4 11:34:54 Psoriatic arthritis 373847741 Active 2023 Garry Graves, [address], [address], [facility] 4 14:16:12 Morbid obesity 228691304 Active 2017 Susan burgess [facility] Internal Medicine 8 08:45:56 Congestive heart failure 42728219 Active 2017 Susan burgess [facility] 8 08:45:59 Obstructiv e sleep apnea syndrome 11522652 Active 2017 Susan burgess [facility] 8 08:46:05 Hypertensi ve disorder 39454058 Active 2017 Susan burgess [facility] 8 08:46:10 Problem Notes None recorded. Procedures Surgical History Date Name Laterality Status Provider Name and Address Organization Details Recorded Time 019 Corticosteroid Injection completed Garry Graves, DO [address] [place], [address], [place] [facility] 01/08/2019 10:11:59 Imaging Results Imaging Date Name Status LastModified by Organization Details LastModified Time 01/28/2023 MRI, cervical spine, w/o contrast completed [facility] [place] [address] [facility] [address], [place], [address], 01/31/2023 15:06:36 06/24/2023 US, echocardiogram completed [facility] [address] [place] [address] [address], [place], [address], 08/17/2023 10:58:21 Procedure Notes None recorded. Medical Equipment None Reported. Allergies Allergen ID Allergen Name Allergen Category Reaction Reaction Severity Criticality Documentation Date Start Date Code Code System Note Provider Name and Address Organization Details Recorded Time 3160 meloxicam medicatio n diarrhea severe Not available 11/20/20182018 24006 RxNorm Garry Graves, DO [address] [place], [address], [place] [facility] 9 17:32:39 4698 tramadol medicatio n dizziness moderate Not available 01/06/2021 99649 RxNorm SAI PIERCE [address] [place], [address], [facility] 11:05:59 Medications Name Sig [...] Updated DateTime 3 177.8 cm 46.8 kg/m2 757068. 11 g 66 /min 97 % 97 % 140 mm[Hg] 90 mm[Hg] [facility] 3 10:29:37 Date Recorded Body height Body mass index (BMI) Body weight Heart rate Oxygen saturation Oxygen saturation in Arterial blood by Pulse oximetry Systolic blood pressure Diastolic blood pressure Provider Name and Address Organization Details Last Updated DateTime 4 177.8 cm 45.3 kg/m2 342784. 19 g 67 /min 97 % 97 % 140 mm[Hg] 70 mm[Hg] Jeane Peralta [facility] Internal [facility] 4 10:19:26 Date Recorded Body height Body mass index (BMI) Body weight Heart rate Oxygen saturation Oxygen saturation in Arterial blood by Pulse oximetry Systolic blood pressure Diastolic blood pressure Provider Name and Address Organization Details Last Updated DateTime 4 177.8 cm 44.9 kg/m2 972255. 41 g 55 /min 97 % 97 % 140 mm[Hg] 60 mm[Hg] Jeane Peralta [facility] Internal [facility] 4 10:44:51 Date Recorded Body height Body mass index (BMI) Body weight Heart rate Respiratory rate Oxygen saturation Oxygen saturation in Arterial blood by Pulse oximetry Systolic blood pressure Diastolic blood pressure Provider Name and Address Organization Details Last Updated DateTime 4 177.8 cm 44.9 kg/m2 230606. 41 g 52 /min 18 /min 99 % 99 % 132 mm[Hg] 66 mm[Hg] João Joyner [facility] Internal [facility] 4 13:57:16 Date Recorded Body height Body mass index (BMI) Body weight Heart rate Oxygen saturation Oxygen saturation in Arterial blood by Pulse oximetry Systolic blood pressure Diastolic blood pressure Systolic blood pressure Diastolic blood pressure Provider Name and Address Organization Details Last Updated DateTime 4 177.8 cm 44.9 kg/m2 972062. 41 g 54 /min 97 % 97 % 140 mm[Hg] 70 mm[Hg] 132 mm[Hg] 70 mm[Hg] Jeane Peralta [facility] Internal [facility] 4 16:35:02 Social History Question Answer Notes LastModified by Organizat ion Details LastModified Time Tobacco Smoking Status Former Smoker Not Available [facility] 03/18/2020 03:36:24 What Was The Date [...] pneumococcal polysaccharide PPV23 0 completed [facility] 11/25/2020 11:26:53 COVID-19, mRNA, LNP-S, PF, 30 mcg/0.3 mL dose 1 completed [facility] 11/25/2020 11:27:04 COVID-19, mRNA, LNP-S, PF, 30 mcg/0.3 mL dose 1 completed Nathalie Balicki [facility] 11/25/2020 11:27:11 Hep B, unspecified formulation 0 completed Nathalie Balicki [facility] 11/25/2020 11:27:24 Hep B, unspecified formulation 0 completed [facility] 11/25/2020 11:27:31 Hep B, unspecified formulation 1 completed Nathalie Balicki [facility] 11/25/2020 11:27:37 Hep A, unspecified formulation 0 completed Nathalie Balicki [facility] 11/25/2020 11:27:57 Hep A, unspecified formulation 0 completed [facility] 11/25/2020 11:28:04 Hep A, unspecified formulation 1 completed [facility] 11/25/2020 11:28:12 COVID-19, mRNA, LNP-S, PF, 30 mcg/0.3 mL dose 1 completed Susan Florez [facility] 01/06/2021 09:14:20 Influenza, split virus, quadrivalent, preservative 1 completed Susan burgess [facility] 08/24/2021 10:36:11 Tdap 9 completed Susan burgess [facility] 01/17/2019 08:11:56 Past Encounters Encounter ID Performer Location Encounter Start Date Encounter Closed Date Diagnosis/Indication Diagnosis SNOMED-CT Code Diagnosis ICD10 Code Diagnosis Note [id number] Garry Graves [facility] Internal Medicine [address] [facility] [address] 09/13/2017 10:56:44 09/13/2017 16:01:17 Hypertensive disorder 04182915 I10 bp stable cont same meds Congestive heart failure 34419235 I50.9 stable and without exacerbati ons is euvolemic Tenosynovi tis of wrist 480430422 M65.839 [id number] Garry Graves [facility] Internal Medicine [address] [facility] [address] 01/25/2018 09:33:47 01/25/2018 10:14:56 Morbid obesity 919412397 E66.01 chronic illness and not working on it Hypertensive disorder 38 782153 I10 bp stable cont same meds Congestive heart failure 02858116 I50.9 stable and without exacerbati ons is euvolemic Obstructiv e sleep apnea syndrome 68310593 G47.33 stable and cont on [facility] cpap Screening for cardiovascular system disease 085587611 Z13.6 Edema of l ower extremity 784229859 R60.0 cont two tabs of lasix need to check K+ levels and creat [id number] Mary Jo Washington NP, S [facility] Internal Medicine [address] [facility],[place] [address] 05/23/2018 10:33:27 05/23/2018 16:49:35 Morbid obesity 286983596 E66.01 Work on weight loss Acute bronchitis 4993411 2 J20.9 Hypertensive disorder 38 604590 I10 mildly elevated, keep scheduled july app Obstructiv e sleep apnea syndrome 09260253 G47.33 compliant with CPAP [id number] Garry Graves [facility] Internal Medicine [address] [facility],[place] [address] 08/02/2018 08:56:16 08/02/2018 12:49:34 Obstructive sleep apnea syndrome 81804726 G47.33 stable and cont on jhsi cpap Hypertensive disorder 38 692660 I10 bp stable cont same meds Congestive heart failure 84963254 I50.9 stable and without exacerbati ons is euvolemic Morbid obesity 804500638 E66.01 chronic illness and not working on it Wrist joint pain 8892123 09 M25.539 recc refer he will consider appt with [place] [id number] Garry Graves [facility] Internal Medicine [address] [facility] [address] 11/20/2018 16:16:38 11/20/2018 17:38:10 Adverse reaction to drug 46125256 T50.905A severe GI response to daily use of meloxicam that was orderd by specialist will need to take probiotics culturelle Hypertensive disorder 38 255226 I10 bp stable cont same meds Congestive heart failure 98693733 I50.9 stable and without exacerbati ons is euvolemic [id number] [facility] [address] [facility], [place] [address] 12/27/2018 10:47:48 12/27/2018 13:47:31 Body mass index 40+ - severely obese 716523391 Z68.42 Hypertensive disorder 38 634395 I10 stable Obstructiv e sleep apnea syndrome 32397633 G47.33 uses cpap every night Knee pain 86472114 M25.5 69 right lateral knee pain OA vs tendinitis mendieta consider PT in future [id number] Garry Graves [facility] Internal Medicine [address] [facility] [address] 01/08/2019 09:49:46 01/08/2019 10:20:43 Osteoarthritis of knee 054119515 M17.9 [place] [id number] [facility] [address] [facility],[place] [address] 02/07/2019 08:53:44 02/07/2019 10:48:03 Hypertensive disorder 34259547 I10 bp stable cont same meds Congestive heart failure 60710151 I50.9 stable and without exacerbati ons is euvolemic echo is done recently and is excellent per verbal report Chronic diarrhea 4336525 09 K52.9 major lab done GI f/u jarred have colonosc next nov Morbid obesity 730805480 E66.01 with the diarrhea he [place] been losing wgt [id number] Garry Graves [facility] Internal Medicine [address] [facility] [address],[place] [address] 05/07/2019 10:23:47 05/07/2019 10:53:59 Hypertensive disorder 80106527 I10 bp stable cont same meds Congestive heart failure 33548500 I50.9 stable and without exacerbati ons is euvolemic echo is done recently and is excellent per report Obstructiv e sleep apnea syndrome 52724776 G47.33 stable and cont on jhsi cpap Diarrhea 32231343 R19.7 None since colonoscop y Crohn's disease 08007742 K50.90 Biopsy/abd CT of GI showed low grade inflammati on suggestive of Crohn's Seeing GI in one week Daughter has Crohn's [id number] Garry Graves [facility] Internal Medicine [address] [facility] [address],[place] [address] 08/17/2019 09:29:29 08/17/2019 12:16:51 Congestive heart failure 20773462 I50.9 stable and without exacerbati ons is euvolemic echo is done recently and is excellent per report Hypertensive disorder 38 504782 I10 bp stable cont same meds Obstructiv e sleep apnea syndrome 39787667 G47.33 stable and cont on jhsi cpap Microcytic anemia 119760 007 D50.9 will be needing to take iron tab will use wifes MVI wish to get iron studies but he wont go out to get lab [id number] Garry Graves [facility] Internal Medicine [address] [facility] [address],[place] [address] 12/07/2019 08:58:03 12/07/2019 11:52:09 Congestive heart failure 40744435 I50.9 stable and without exacerbati ons is euvolemic echo is done recently and is excellent per report needs to renew his lasix no leg swelling Crohn's disease 45007995 K50.90 Biopsy/abd CT of GI showed low grade inflammati on suggestive of Crohn's Seeing GI in one week Daughter has Crohn's Hypertensive disorder 38 299759 I10 bp stable cont same meds Obstructiv e sleep apnea syndrome 43686819 G47.33 stable and cont on si cpap [id number] Garry Graves DO [facility] Internal Medicine [address] [facility] [address] [address],[place] [address] 04/28/2020 08:45:16 04/28/2020 10:57:40 Congestive heart failure 30775712 I50.9 stable and without exacerbati ons is euvolemic echo is done recently and is excellent per report needs to renew his lasix no leg swelling Hypertensive disorder 38 524449 I10 bp stable cont same meds Obstructiv e sleep apnea syndrome 53941562 G47.33 stable and cont on his cpap Morbid obesity 871991751 E66.01 long discussion re prob with his eating states is at 334 Crohn's disease 26155453 K50.90 seen by GI and has been started on HUmira pt is feeling better and will be seeing GI appt in may Garry Graves DO [facility] Internal Medicine [address] [facility] [address] [address],[place] [address] 11/28/2020 11:06:02 11/28/2020 12:11:18 Hypertensive disorder 64733374 I10 bp stable cont same meds Congestive heart failure 06297737 I50.9 stable and without exacerbati ons is euvolemic echo is done recently and is excellent per report needs to renew his lasix no leg swelling Obstructiv e sleep apnea syndrome 28874250 G47.33 stable and cont on his cpap Hepatitis C screening 41 4857112 Z11.59 Morbid obesity 919228196 E66.01 long discussion re prob with his eating states is at 302 with the weight loss from the crohns Crohn's disease 88975420 K50.90 seen by GI and has been started on Entyvil IV infusion regimen pt is feeling better and will be seeing GI appt 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 3304694114 106 K50.018 we will have him see a rheumatolo gist [id number] SAI PIERCE [facility] Internal Medicine [address] [facility] [address],[place] [address] 12/10/2020 09:52:05 12/10/2020 11:56:49 Neck pain 16133114 M54.2 will start on msk relaxer and tramadolfu with XR Torticollis 63192891 M43 .6 fu with MSK relaxer [id number] SAI PIERCE [facility] Internal Medicine [address] [facility] [address],[place] [address] 01/06/2021 09:05:10 01/06/2021 12:01:51 Epidermoid cyst of skin 070259892 L72.3 will fu with general surgeon for removal Degenerati on of cervical intervertebral disc 16953985 M50.30 will fu with PVSS [id number] SAI PIERCE [facility] Internal Medicine [address] [facility] [address],[place] [address] 03/16/2021 11:22:42 03/16/2021 12:41:23 Low back pain 889504425 M54.59 will fu with XR to start on his low back Abnormal gait 25971897 R 26.9 will fu with order for stand up walker Bursitis o f olecranon of right elbow 9489230683 84240 M70[address] Bhardwaj about the pred taper [id number] Garry Graves DO [facility] Internal Medicine [address] [facility],[place] [address] 04/20/2021 10:25:43 04/20/2021 12:42:30 Hypertensive disorder 40641411 I10 bp stable cont same meds Congestive heart failure 50888572 I50.9 stable and without exacerbati ons is euvolemic echo is done recently and is excellent per report needs to renew his lasix no leg swelling Obstructiv e sleep apnea syndrome 30220362 G47.33 stable and cont on his cpap Crohn's disease 30012796 K50.90 seen by GI and has been started on Entyvil IV infusion regimen pt is feeling better and will be seeing GI appt Degenerati on of lumbar intervertebral disc 82854149 M51.36 Hearing loss 91058113 H9 0.3 will need audiogram 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 Internal Medicine [address] [facility],[place] [address] 08/24/2021 10:25:17 08/24/2021 11:40:12 Hypertensive disorder 71076091 I10 bp stable cont same meds Congestive heart failure 85760359 I50.9 stable and without exacerbati ons is euvolemic echo is done recently and is excellent per report needs to renew his lasix no leg swelling Morbid obesity 239312928 E66.01 long discussion re prob with his eating states is at 322 \told him this will lower his life expectancy s Crohn's disease 60357015 K50.90 seen by GI and has been started on Entyvil IV infusion regimen pt is feeling better and will be seeing [place] appt [id number] Garry Graves [facility] Internal Medicine [address] [facility],[place] [address] 12/11/2021 14:47:03 12/11/2021 16:18:04 Hypertensive disorder 29777542 I10 bp stable cont same meds Depression screening 171 088003 Z13.31 negative PHQ2 screening at today's visit Crohn's disease 43038050 K50.90 seen by GI and= is on methotrexa te sq injection pt is feeling better and will be seeing GI appt Congestive heart failure 58779521 I50.9 stable and without exacerbati ons is euvolemic echo is done recently and is excellent per report needs to renew his lasix no leg swelling Osteoarthritis 401633143 M19.90 he is still struggling with the arthralgia [id number] Garry Graves DO [facility] Internal Medicine [address] [facility],[place] [address] 04/30/2022 10:54:24 04/30/2022 15:17:59 Congestive heart failure 79657222 I50.9 stable and without exacerbati ons is euvolemic echo is done recently and is excellent per report needs to renew his lasix no leg swelling Hypertensive disorder 38 891161 I10 bp stable cont same meds Osteoarthritis 157533120 M19.90 he is still struggling with the arthralgia encouraged to walk Obstructiv e sleep apnea syndrome 98132489 G47.33 stable and cont on his cpap but wondering about a new device for the chest??? [id number] Garry Graves DO [facility] Internal Medicine [address] [facility],[place] [address] 11/26/2022 10:17:44 11/26/2022 11:32:27 Congestive heart failure 85124327 I50.9 stable and without exacerbati ons is euvolemic echo is done recently and is excellent per report needs to renew his lasix no leg swelling Hypertensive disorder 38 019168 I10 bp stable cont same meds Morbid obesity 213712202 E66.01 he has lost 8 lbs Crohn's disease 51777088 K50.90 seen by GI and= is on methotrexa te sq injection pt is feeling better and will be following GI appt [id number] SAI PIERCE [facility] Internal Medicine [address] [facility],[place] [address] 06/06/2023 10:12:51 06/06/2023 10:41:44 Morbid obesity 926902453 E66.01 stable Hypertensive disorder 38 131218 I10 cleared by cardiology Obstructiv e sleep apnea syndrome 00835764 G47.33 stable, no changes Congestive heart failure 11979429 I50.89 stable per cardiology Pre-surger y evaluation 581705557 Z01.818 The patient was seen in the office today for pre-op evaluation . All medical conditions on patient's problem list were addressed and are currently stable, no interventi on needed at this time. Based on history and physical performed, the patient is cleared for surgery. [id number] Garry Graves DO [facility] Internal Medicine [address] [facility], [place] [address] 08/17/2023 10:37:50 08/17/2023 11:36:58 Crohn's disease 60020278 K50.90 seen by GI and= is on methotrexa te sq injection pt is feeling better and will be following GI appt Congestive heart failure [id number] I50.89 stable and without exacerbati ons his recent cardiac work up was ecellent including echo and heart cath is euvolemic needs to renew his lasix no leg swelling Hypertensive disorder 38 180918 I10 bp stable cont same meds Morbid obesity [id number] E66.01 no further wgt loss Chronic to phaceous gout [id number] M1A.9XX1 Acute righ t otitis media [id number] H66.91 [id number] Garry Graves [facility] [address] [facility],[place] [address] 10/19/2023 13:46:51 10/19/2023 14:34:25 Acute right otitis media [id number] H66.91 has now resolved discussed in depth how TM can get infected Depression screening 171 281291 Z13.31 negative PHQ2 screening at today's visit Hypertensive disorder 38 462104 I10 bp stable cont same meds Degenerati on of lumbar intervertebral disc 14385821 M51.36 still about the same but he is manging Congestive heart failure 19052418 I50.89 stable and without exacerbati ons his recent cardiac work up was ecellent including echo and heart cath is euvolemic needs to renew his lasix no leg swelling Morbid obesity 761889160 E66.01 no further wgt loss Psoriatic arthritis 1563 53055 L40.50 having a hard time getting this controlled hurts to walk any distancedo es have a handicap platehas been on MTX for this Crohn's disease 21410146 K50.90 seen by GI and= is on methotrexa te sq injection an stable with Entyvio pt is feeling better and will be following GI appt [id number] Garry Graves, [facility] Internal Medicine [address] [facility],[place] [address] 02/08/2024 16:03:32 02/10/2024 08:57:21 Congestive heart failure 74696706 I50.89 stable and without exacerbati ons his recent cardiac work up was ecellent including echo and heart cath is euvolemic needs to renew his lasix no leg swelling Psoriatic arthritis 1563 37485 L40.50 having a hard time getting this controlled hurts to walk any distancedo es have a handicap platehas been on MTX for this Obstructiv e sleep apnea syndrome 49226256 G47.33 stable and cont on his cpap [...] 11/26/2022 2 [place] Hector Hernández Isaiah [id number] Hector Isaiah 11/26/2022 1 [place] [facility] Hector Edgar Isaiah [id number] Hector Isaiah 06/06/2023 2 [place] Hector Hernández Isaiah [id number] Hector Isaiah 06/06/2023 1 [place] [facility] Hector Edgar Isaiah [id number] Hector Isaiah 08/17/2023 2 [place] Hector Hernández Isaiah [id number] Hector Isaiah 08/17/2023 1 [place] [facility] Hector Edgar Isaiah [id number] Hector Isaiah 10/19/2023 2 [place] Hector Hernández Isaiah [id number] Hector Isaiah 10/19/2023 1 [place] [facility] Hector Edgar Isaiah [id number] Hector Isaiah 02/08/2024 2 [place] Hector Hernández Isaiah [id number] Hector Isaiah 02/08/2024 1 [place] [facility] Hector Edgar Isaiah [id number] Hector Isaiah Notes Date Note Type Note Provider Name and Address Organization Details Recorded Time 3 text/htm l here for ambreen overall is doing okrelates that he is not having cpno sob unless exert uses cpapbowels are goodbladder okarthritis is what is kicking his ass and state s he is quite frustrated with this at times Garry Graves, DO [address] [facility], [place], [address], [facility] 11/26/2022 10:52:15 4 text/htm l Pre-OpReported bypatient.Surgery to be Performed:carpal tunnel surgery (bilaterally) and both elbows (biopsy) with [place]. [facility] Severity:severe Risk Factorsno cognitive impairment; no functional [...] Support:adequate assistance at home () cleared by sign poster and front end java developer SAI PIERCE [address] [place] [address], [phone], [facility] 06/06/2023 10:36:13 4 text/htm [...] mtx should be restarted Garry Graves DO [address] [place] [address], [phone], [facility] 08/17/2023 11:35:26 4 text/htm [...] well controlled no bleeding Garry Graves DO [address] [place] [address], [phone], [facility] 10/19/2023 14:23:32 4 text/htm l here for rechk and is doing jessica MTX and recent lab shows ongoing anemia creat is still ok overallarhtritis is bothering himcrohns is quiet ]'gout has been the issue uric acid is 7.2 Garry Graves, DO [address] [facility], [place], [address], [facility] 02/09/2024 23:02:06
--- OUTSIDE RECORDS SUMMARY | 2024-06-12 12:04 | XMS_ITS ---
Author Organization [facility] Address [address] [place] [address] Care Team Providers Care Information Analyst Name Role Phone Garry Graves MD Primary Care Provider Daisy George Unavailable [phone] Solomon Ventura [phone] REASON FOR VISIT Rx Medications Medication SIG (Take, Route, Fr equency, Duration) Notes Start Date End Date Status Custom Orthotics as directed 09/29/2023 Active Encounters Encounter Location Date Provider Diagnosis [address] [address] 09/28/2023 Solomon Ventura Plan Of Treatment Medication Medication Name Sig Start Date Stop Date Notes Custom Orthotics as directed 09/29/2023 Next Appt Details Provider Name:Daisy collado, 08/30/2024 11:15:00 AM, [address] [place], [address], Progress Notes * Hector COLON KDOB:[birth year] (68 yo M)Acc No.[id number]:09/28/2023 Patient:?Hector Colon :1955???Age:68 Y???Sex:Male Address:[address], [place], [address] * Refills? Start Custom Orthotics, as directed * true * Date:? Generated for Printi ng/Faxing/eTransmitting on:?06/12/2024 12:04 PM EST
--- OUTSIDE RECORDS SUMMARY | 2024-06-12 12:04 | XMS_ITS ---
Author Organization [facility] Address [address] [place] [address] Care Team Providers Care Receiving Room Clerk Name Role Phone Garry Graves MD Primary Care Provider Daisy George Unavailable [phone] Solomon Ventura Unavailable [phone] Allergies Allergen (clinical drug ingredient) Drug/Non Drug [...] Problem Status W/U Status Risk Notes Problem [id number] Venous insufficiency (I87.2) Active confirmed Vital Signs Height 5 ft 11 in in 08/25/2023 Weight 334 lbs 08/25/2023 BMI 46.58 kg/m2 08/25/2023 Encounters Encounter Location Date Provider Diagnosis [facility] [place] [address] [place] [address] 08/25/2023 Solomon Ventura Plantar fascial fibromatosis M72.2 [...] Provider Name:Daisy collado, 08/30/2024 11:15:00 AM, [address] [place], [address], Progress Notes * Hector COLON KDOB:[birth year] (68 yo M)Acc No.[id number]:08/25/2023 Progress Note Patient:?Hector Colon Edgar Provider:?Solomon Ventura DPM :1955???Age:68 Y???Sex:Male Narciso e:08/25/2023 Address:[address] [place], [place] [id number] Pcp:Garry Graves MD Subjective: * Chief Complaints: * ???Last Visit PCP 08/17/23 * HPI: ???Heel pain:?Nature:?aching.?Location:?B/L, proximal plantar aspect of heel--left more severe than right.?Duration:?several years .?Onset/Cause:?unknown.?Course:?improved with use of upright walker over past sev months.?Aggrevated:?standing, walking.?Treatments:?rest, change in shoes, innersoles, corticosteriod injection; custom orthoses and aleve; rest helps the most; methotrexate for tx of arthritis; [place].?Skin problems:?Nature:?dryness.?Location:?Heel/Rearfoot, B/L .?Duration:?several weeks.?Onset/Cause:?unknown.?Treatments:?medication ( Eucerin).?Severity/Quality:?moderate.?Foot [...] Exercise. ?Marital status: . ?Occupation: Retired-[employer]. * Medications:?TakingAllopurin ol 100 MG Tablet [...] DPM Date:? 024 Generated for Capo raman/Davidson/Agathaitting on:?06/12/2024 12:03 PM EST History and Physical Notes * [...] most; methotrexate for tx of arthritis; [place]. Balderrama[place] [place] Skin problems Nature: dryness Location: Heel/Rearfoot, [...]
== END 2024-06-12 11:17 | disposition home or self-care (01) ==
PROVIDERS: PCP Internal Medicine; Visit Provider Internal Medicine Hypertension Specialist
DX: N18.31 Chronic kidney disease, stage 3a (principal)
CPT/HCPCS: 99214

== ENCOUNTER → 2024-06-12 10:54 | Outpatient (BNVA) | payer MEDICARE, MEDICAID, SELFPAY | PROVIDERS: PCP Internal Medicine; Visit Provider Internal Medicine Hypertension Specialist | DX: I12.9 Hypertensive chronic kidney disease with stage 1 through stage 4 chronic kidney disease, or unspecified chronic kidney disease (principal); N18.31 Chronic kidney disease, stage 3a; G47.33 Obstructive sleep apnea (adult) (pediatric); Z99.89 Dependence on other enabling machines and devices | CPT/HCPCS: 99212 ==

== ENCOUNTER 2024-06-19 10:16 | Outpatient (AMB) | payer MEDICARE, MEDICAID, SELFPAY ==
[2024-06-19 10:40] VITALS: BP 140/50; PULSE 51; O2SAT 98; BMI 45.8
--- NOTE | 2024-06-19 10:40 | A.OFFVIS_ITS ---
Vital Signs 06/19/24 10:40 Height 5 ft 11 in Weight 328 lb 7.82 oz BMI 45.8 BP 140/50 H Blood Pressure Location Lt brachial Position Sitting Pulse 51 Pulse Source Pulse Oximeter Pulse Oximetry (%) 98 Oxygen Delivery Method Room Air Intake Visit Reasons: Obstructive sleep apnea Intake Note: pt is here for follow up of TIFFANY, no problems going on. Machine Printer Hose Required: No Allergies tramadol Allergy (Mild, Verified 06/19/24 11:03) Dizziness Medication List - Last Reconciled 06/19/24 by Cipriano Pearson MD acetaminophen ER (Tylenol Arthritis Pain) 1,300 mg PO Q8H allopurinol 300 mg PO DAILY amlodipine 10 mg PO QAM apixaban (Eliquis) 5 mg PO BID ferrous sulfate 324 mg PO DAILY folic acid 1 mg PO DAILY furosemide 80 mg PO QAM insulin syringe-needle U-100 (BD Insulin Syringe) Use once weekly with methotrexate losartan 100 mg PO QAM methotrexate sodium 60 mg subcut QWEEK multivitamin 1 tab PO DAILY pantoprazole 40 mg PO QAM ypnlykkg-lnya-pnprs-oreg-capry 100 mg-150 mg- 50 mg-150 mg 1 cap PO DAILY vedolizumab (Entyvio) 300 mg IV Q8W HPI HPI Obstructive sleep apnea: Details: 69 YEARS OLD GENTLEMAN IS MORBIDLY OBESE AND IS BEING TREATED FOR OBSTRUCTIVE SLEEP APNEA. HE IS USING FULLFACE MASK WITH PRESSURE SETTING OF 24/20 CM, WHICH IS RELATIVELY HIGH PRESSURE BUT HE TOLERATES WELL. USING THE CPAP EVERY NIGHT FOR MORE THAN 8-9 HOURS AND SLEEPS REALLY GOOD. WAKES UP REFRESHED. HE HAS NO ISSUE WITH THE MASK OR CPAP DEVICE AT THIS TIME. HE IS MOSTLY SEDENTARY IN THE HOUSE AND NOT ABLE TO LOSE ANY WEIGHT. I TALKED TO THE PATIENT AND HIS ABOUT DIET AND THEY ARE DOING THEIR BEST TO KEEP HIS CALORIES INTAKE LOW POSSIBLE. [facility] Medical History COVID-19 Claustrophobia Arthritis Atrial septal defect Atrial fibrillation Gouty tophi of joint Restrictive lung disease Cervical spondylosis Epidermal cyst Essential hypertension Chronic right heart failure Crohn's disease TIFFANY on CPAP Morbid obesity Surgical History Hx of carpal tunnel repair History of colon resection History of excision of epidermal inclusion cyst (~03/27/21) History of esophagogastroduodenoscopy (EGD) Status post surgical atrial septal defect closure History of colonoscopy Family History Father Hx of Crohn's disease Cancer Mother Hx of type 2 diabetes mellitus Social History Are you a primary intensive care nurse to a significant other at home: No Do you presently have visiting nurse or other home services: No Alcohol intake: never Comment: counts correct Patient Tobacco Use Status: Former Tobacco user Tobacco use type: Cigarette Years Smoked: 10 +/- Current occupational status: retired Current occupation: right hand dominant Review of Systems Const All systems reviewed & are unremarkable except as noted in HPI and below Eyes Reports no additional complaints ENT Reports no additional complaints Card Denies chest pain, Denies irregular heart rhythm and Denies leg edema Resp Reports as per HPI GI Reports GI cramping and Reports heartburn Reports no additional complaints Musc Reports arthralgias (especially in wrist joints) Neuro Reports no additional complaints Psych Reports no additional complaints Physical Exam Vital Signs: Last Vital Signs Pulse 51 06/19/24 10:40 BP 140/50 H 06/19/24 10:40 Pulse Ox 98 06/19/24 10:40 Oxygen Delivery Method Room Air 06/19/24 10:40 BMI result Body Mass Index 45.8 Const General: comfortable, no acute distress, alert and awake Orientation/consciousness: patient oriented x3 HEENT Head: Yes normal to inspection General nose exam: No nasal polyps present and No nasal discharge present Face and sinus: Yes sinuses nontender Mouth: oropharynx normal Throat: Yes posterior oropharynx normal Eyes General: appearance normal, both eyes and all related structures Neck Neck: Yes normal visual inspection, Yes no lymphadenopathy, Yes trachea midline and Yes no JVD Thyroid: Thyroid normal Chest Chest palpation & inspection: normal inspection of the chest, normal palpation of entire chest wall and no tenderness Resp Effort & Inspection: normal respiratory effort Auscultation: clear to auscultation bilaterally, no crackles and no wheezes Cardio Palpation: normal PMI Rate: regular rate Rhythm: regular rhythm Heart sounds: no gallops and no murmurs Peripheral pulses: Peripheral pulses 2+ throughout GI Palpation (GI): Soft to palpation, nontender, No hepatosplenomegaly present, no masses and Other GI palpation findings present (Midline scar Abdomen is Obese and protuberant, Lt. sided ventral hernia , ) Auscultation: normal bowel sounds Back/Spine/Pelvis Thoracic/Lumbar Spine: thoracic and lumbar spine normal to inspection Skin General skin exam: no rashes or lesions noted Neuro General: patient oriented x3 and no focal motor deficits Cranial nerves: Yes CN's II-XII intact bilaterally Extrem General: Yes normal to inspection, Yes no clubbing, cyanosis or edema and Yes no calf tenderness Psych Appearance: grossly normal and well kempt Speech and movement: Normal speech and movement present Results Reviewed Results Reviewed: COMPLIANCE REPORT FOR THE LAST 30 NIGHTS IS REVIEWED. HIS USAGE IS 100% OF THE NIGHTS AND AVERAGE USE IT PER NIGHT 9 HOURS 10 MINUTES. WHICH IS EXCELLENT HE HAS SOME AIR LEAK WHICH HE IS AWARE OF. AND RESIDUAL AHI ONLY 3.1 Assessment & Plan Assessment & Plan (1) Morbid obesity: Comment: IT IS A CHRONIC PROBLEM, HE IS WELL AWARE OF THIS ISSUE. Code(s): E66.01 - Morbid (severe) obesity due to excess calories Category: Medical Plan: DIET DISCUSSED, WHICH SHOULD BE LOW IN CALORIES AND HIGH IN FIBER . TRY TO REDUCE THE TOTAL CALORIES INTAKE. (2) TIFFANY on CPAP: Comment: KNOWN CASE OF SEVERE OBSTRUCTIVE SLEEP APNEA. HE IS BEING TREATED WITH BILEVEL CPAP 24-20 AND IS VERY COMPLIANT. HIS SLEEP IS MUCH BETTER. Code(s): G47.33 - Obstructive sleep apnea (adult) (pediatric); Z99.89 - Dependence on other enabling machines and devices Category: Medical Plan: COMMENDED FOR GOOD COMPLIANCE AND ADVISED TO CONTINUE USING THE CPAP EVERY NIGHT. KEEP. THE STRAPS RELATIVELY TIGHTENED (3) Restrictive lung disease: Comment: PER SPIROMETRY FINDING THERE IS EVIDENCE OF MILD TO MODERATE DEGREE OF RESTRICTIVE PULMONARY DISORDER, THIS IS EXPECTED BECAUSE OF HIS MORBID OBESITY. Code(s): J98.4 - Other disorders of lung Category: Medical Plan: PATIENT ADVISED TO DO DEEP BREATHING EXERCISES DURING THE DAY MUCH POSSIBLE. Coding Level of Care Code Est Pt Level 3 (67324) Diagnoses Morbid obesity E66.01 TIFFANY on CPAP G47.33; Z99.89 Restrictive lung disease J98.4
== END 2024-06-19 11:09 | disposition home or self-care (01) ==
PROVIDERS: PCP Internal Medicine; Visit Provider Internal Medicine
DX: E66.01 Morbid (severe) obesity due to excess calories (principal); G47.33 Obstructive sleep apnea (adult) (pediatric); Z99.89 Dependence on other enabling machines and devices; J98.4 Other disorders of lung
CPT/HCPCS: 99213

== ENCOUNTER → 2024-06-19 10:16 | Outpatient (BNVA) | payer MEDICARE, MEDICAID, SELFPAY | PROVIDERS: PCP Internal Medicine; Visit Provider Internal Medicine | DX: J98.4 Other disorders of lung (principal); G47.33 Obstructive sleep apnea (adult) (pediatric); E66.01 Morbid (severe) obesity due to excess calories; Z68.42 Body mass index [BMI] 45.0-49.9, adult; Z99.89 Dependence on other enabling machines and devices; Z87.891 Personal history of nicotine dependence | CPT/HCPCS: 99212 ==

== ENCOUNTER 2024-07-26 08:59 | Outpatient (REF) | payer MEDICARE, MEDICAID, SELFPAY ==
--- OUTSIDE RECORDS SUMMARY | 2024-07-26 10:15 | XMS_ITS | Data Portability ---
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 [email or web address] Not available 02/08/2024 16:33:32 Plan of Treatment Reminders Order Date Submit Date Provider Last Modified By Organization Details Last Modified Time Details Appointments None recorded. Lab vitamin D, 25-hydroxy , total, serum 2022 023 NELA [facility] (Centralized Electronic Ordering - All Locations), Patient Can Go To The Location Of Their Choice, 3 12:56:38 vitamin B12, serum 2022 023 NELA [facility] (Centralized Electronic Ordering - All Locations), Patient Can Go To The Location Of Their Choice, 3 12:56:38 vitamin B1 (thiamine) , serum 2022 023 NELA [facility] (Centralized Electronic Ordering - All Locations), Patient Can Go To The Location Of Their Choice, 11:16:12 folate, serum 2022 023 NELA [facility] (Centralized Electronic Ordering - All Locations), Patient Can Go To The Location Of Their Choice, [address] 3 12:56:38 CMP, serum or plasma 2022 023 ATHENAFAX [facility] (Centralized Electronic Ordering - All Locations), Patient Can Go To The Location Of Their Choice, [address] 3 10:55:22 pro BNP (pro B-type natriureti c peptide), serum or plasma 2022 023 NELA [facility] (Centralized Electronic Ordering - All Locations), Patient Can Go To The Location Of Their Choice, [address] 3 12:56:38 CBC 2022 023 ATHENAFAX [facility] (Centralized Electronic Ordering - All Locations), Patient Can Go To The Location Of Their Choice, [address] 10:55:21 Referral None recorded. Procedures None recorded. Surgeries None recorded. Imaging None recorded. Medication Orders amoxicilli n 875 mg-potassi um clavulanat e 125 mg tablet 2023 024 [email or web address] [id number] [address] [place], [place], [id number], 13:55:23 Patient TargetsNo targets recorded. Patient Instructions Encounter Date Encounter Id Patient Instructions Last Modified By Organization Details Last Modified Time 08/17/2023 [id number] pulse oximetry* Not available 08/17/2023 11:13:27 10/19/2023 [id number] When You Want to Lose Weight: Care Instructions Not available 10/19/2023 14:23:11 crohn's disease: care instructions Not available 10/19/2023 14:23:11 heart failure: care instructions Not available 10/19/2023 14:23:11 learning about heart failure Not available 10/19/2023 14:23:11 02/08/2024 [id number] pulse oximetry* Not available 02/09/2024 23:02:02 sleep apnea: car e instructions Not available 02/09/2024 23:02:02 Reason for Referral None Reported. Results Created Date Observation Date Name Description Value Unit Range Abnormal Flag Note LastModifiedBy Organization Detail LastModifiedTime 08/17/19 24 08/17/2023 pulse oxime try* Result 97 Not Available [facility] [address], [place], [address], 08/15/2023 14:00:34 02/08/20 24 02/08/2024 pulse oxime try* Result 97 Not Available [facility] [address], [place], [address], 02/06/2024 12:00:52 02/01/20 23 01/28/2023 MRI, cervi nia spine , w/o contr ast No observ ation record ed. [facility] [address] [address], [place], [address], 01/31/2023 15:06:36 06/28/19 24 06/24/2023 US, echoc ardio gram No observ ation record ed. [facility] [place] [place], [place], [address], 08/17/2023 10:58:21 Result Notes None recorded. Problems Name Problem SNOMED Code Status Onset Date Resolution Date Notes Provider Name and Address Organization Details Recorded Time Crohn's disease 91786686 Active 2019 Garry Graves DO [address] [place] [address], [address], [place] [facility] 0 11:51:44 Degenerati on of lumbar interverte bral disc 49868801 Active 2020 Garry Graves DO [address] [place] [address], [address], [place] [facility] 1 10:47:53 Osteoarthr itis 815115011 Active 2021 Garry Graves DO [address] [place] [address], [address], [facility] 2 15:14:41 Degenerati ve joint disease of hand 54977317 Active 2022 SAI PIERCE [address] [place], [address], [facility] 3 15:28:27 COVID-19 599577240 Active 2023 Garry Graves DO [address] [place] [address], [address], [facility] 4 13:31:54 Chronic tophaceous gout 52787467 Active 2023 Garry Graves DO [address] [place] [address], [address], [facility] 4 11:11:39 Acute right otitis media 072044435 Active 2023 Garry Graves DO [address] [place] [address], [address], [facility] 4 11:34:54 Psoriatic arthritis 423487749 Active 2023 Garry Graves DO [address] [place] [address], [address], [facility] 4 14:16:12 Morbid obesity 947191564 Active 2017 [facility] 8 08:45:56 Congestive heart failure 79960956 Active 2017 Susan burgess [facility] 8 08:45:59 Obstructiv e sleep apnea syndrome 80933631 Active 2017 Susan burgess [facility] 8 08:46:05 Hypertensi ve disorder 86659457 Active 2017 Susan burgess [facility] 8 08:46:10 Problem Notes None recorded. Procedures Surgical History Date Name Laterality Status Provider Name and Address Organization Details Recorded Time 019 Corticosteroid Injection completed Garry Graves DO [address] [place], [address], [place] [facility] 01/08/2019 10:11:59 Imaging Results Imaging Date Name Status LastModified by Organization Details LastModified Time 01/28/2023 MRI, cervical spine, w/o contrast completed [facility] [address] [facility] [address], [place], [address], 01/31/2023 15:06:36 06/24/2023 US, echocardiogram completed [facility] [address] [place] [address] [address], [place], [address], 08/17/2023 10:58:21 Procedure Notes None recorded. Medical Equipment None Reported. Allergies Allergen ID Allergen Name Allergen Category Reaction Reaction Severity Criticality Documentation Date Start Date Code Code System Note Provider Name and Address Organization Details Recorded Time 3160 meloxicam medicatio n diarrhea severe Not available 11/20/20182018 03530 RxNorm Garry Graves, [address] [place], [address], [facility] 9 17:32:39 4698 tramadol medicatio n dizziness moderate Not available 01/06/2021 79803 RxNorm SAI PIERCE [address] [place], [address], [facility] 11:05:59 Medications Name [...] with needle 1 mL 29 gauge x 11/28 USE TO INJECT METHOTREX ATE EVERY 7 [...] Updated DateTime 3 177.8 cm 46.8 kg/m2 389700. 11 g 66 /min 97 % 97 % 140 mm[Hg] 90 mm[Hg] [facility] 3 10:29:37 Date Recorded Body height Body mass index (BMI) Body weight Heart rate Oxygen saturation Oxygen saturation in Arterial blood by Pulse oximetry Systolic blood pressure Diastolic blood pressure Provider Name and Address Organization Details Last Updated DateTime 4 177.8 cm 45.3 kg/m2 010249. 19 g 67 /min 97 % 97 % 140 mm[Hg] 70 mm[Hg] Jeane Peralta [facility] 4 10:19:26 Date Recorded Body height Body mass index (BMI) Body weight Heart rate Oxygen saturation Oxygen saturation in Arterial blood by Pulse oximetry Systolic blood pressure Diastolic blood pressure Provider Name and Address Organization Details Last Updated DateTime 4 177.8 cm 44.9 kg/m2 029661. 41 g 55 /min 97 % 97 % 140 mm[Hg] 60 mm[Hg[facility] 4 10:44:51 Date Recorded Body height Body mass index (BMI) Body weight Heart rate Respiratory rate Oxygen saturation Oxygen saturation in Arterial blood by Pulse oximetry Systolic blood pressure Diastolic blood pressure Provider Name and Address Organization Details Last Updated DateTime 4 177.8 cm 44.9 kg/m2 217749. 41 g 52 /min 18 /min 99 % 99 % 132 mm[Hg] 66 mm[Hg] João Joyner [facility] 4 13:57:16 Date Recorded Body height Body mass index (BMI) Body weight Heart rate Oxygen saturation Oxygen saturation in Arterial blood by Pulse oximetry Systolic blood pressure Diastolic blood pressure Systolic blood pressure Diastolic blood pressure Provider Name and Address Organization Details Last Updated DateTime 4 177.8 cm 44.9 kg/m2 497232. 41 g 54 /min 97 % 97 % 140 mm[Hg] 70 mm[Hg] 132 mm[Hg] 70 mm[Hg] [facility] 4 16:35:02 Social History Question Answer Notes LastModified by Organizat ion Details LastModified Time Tobacco Smoking Status Former Smoker Not Available [facility] 03/18/2020 03:36:24 What Was The Date Of Your Most Recent Tobacco Screening? 02/08/2024 [email or web address] Information not available 02/08/2024 Do You Or [...] Recorded Time pneumococcal polysaccharide PPV23 0 completed [facility] 11:26:53 COVID-19, mRNA, LNP-S, PF, 30 mcg/0.3 mL dose 1 completed Nathalie Balicki null, [facility] 11/25/2020 11:27:04 COVID-19, mRNA, LNP-S, PF, 30 mcg/0.3 mL dose 1 completed Nathalie Balicki [facility] 11/25/2020 11:27:11 Hep B, unspecified formulation 0 completed Nathalie Balicki [facility] 11/25/2020 11:27:24 Hep B, unspecified formulation 0 completed [facility]/25[facility]2020 11:27:31 Hep B, unspecified formulation 1 completed Nathalie Balicki [facility] 11/25/2020 11:27:37 Hep A, unspecified formulation 0 completed Nathalie Balicki [facility] 11/25/2020 11:27:57 Hep A, unspecified formulation 0 completed [facility] 11/25/2020 11:28:04 Hep A, unspecified formulation 1 completed [facility] 11/25/2020 11:28:12 COVID-19, mRNA, LNP-S, PF, 30 mcg/0.3 mL dose 1 completed Susan Florez [facility] 01/06/2021 09:14:20 Influenza, split virus, quadrivalent, preservative 1 [facility] 08/24/2021 10:36:11 Tdap 9 completed Susan burgess [facility] 01/17/2019 08:11:56 Past Encounters Encounter ID Performer Location Encounter Start Date Encounter Closed Date Diagnosis/Indication Diagnosis SNOMED-CT Code Diagnosis ICD10 Code Diagnosis Note [id number] Garry Graves [facility] [address] [facility],[place] [address] 09/13/2017 10:56:44 09/13/2017 16:01:17 Hypertensive disorder 30263598 I10 bp stable cont same meds Congestive heart failure 85426708 I50.9 stable and without exacerbati ons is euvolemic Tenosynovi tis of wrist 868618983 M65.839 [id number] Garry Graves [facility] [address] [facility],[place] [address] 01/25/2018 09:33:47 01/25/2018 10:14:56 Morbid obesity 277320616 E66.01 chronic illness and not working on it Hypertensive disorder 38 569527 I10 bp stable cont same meds Congestive heart failure 36677942 I50.9 stable and without exacerbati ons is euvolemic Obstructiv e sleep apnea syndrome 41807214 G47.33 stable and cont on [facility] cpap Screening for cardiovascular system disease 469431394 Z13.6 Edema of l ower extremity 666891146 R60.0 cont two tabs of lasix need to check K+ levels and creat [id number] Mary Jo Washington NP, S [facility] [address] [facility],[address] [facility] [address] 05/23/2018 10:33:27 05/23/2018 16:49:35 Morbid obesity 272724556 E66.01 Work on weight loss Acute bronchitis 0983910 2 J20.9 Hypertensive disorder 38 616858 I10 mildly elevated, keep scheduled july appt Obstructiv e sleep apnea syndrome 93194203 G47.33 compliant with CPAP [id number] Garry Graves [facility] [address] [facility],[place] [address] 08/02/2018 08:56:16 08/02/2018 12:49:34 Obstructive sleep apnea syndrome 65834037 G47.33 stable and cont on [facility] cpap Hypertensive disorder 38 465165 I10 bp stable cont same meds Congestive heart failure 45525434 I50.9 stable and without exacerbati ons is euvolemic Morbid obesity 531254366 E66.01 chronic illness and not working on it Wrist joint pain 4955308 09 M25.539 recc refer he will consider appt with dr nation [id number] [facility] [address] [facility],[place] [address] 11/20/2018 16:16:38 11/20/2018 17:38:10 Adverse reaction to drug 16177449 T50.905A severe GI response to daily use of meloxicam that was orderd by specialist will need to take probiotics culturelle Hypertensive disorder 38 957619 I10 bp stable cont same meds Congestive heart failure 93364144 I50.9 stable and without exacerbati ons is euvolemic [id number] August IKE Hernandez [facility] [address] [facility],[place] [address] 12/27/2018 10:47:48 12/27/2018 13:47:31 Body mass index 40+ - severely obese 332746695 Z68.42 Hypertensive disorder 38 063724 I10 stable Obstructiv e sleep apnea syndrome 50085056 G47.33 uses cpap every night Knee pain 71618958 M25.5 69 right lateral knee pain OA vs tendinitis mendieta consider PT in future [id number] Garry Graves [facility] [address] [facility],[place] [address] 01/08/2019 09:49:46 01/08/2019 10:20:43 Osteoarthritis of knee 638460644 M17.9 [place] [id number] Garry Graves [facility] [address] [facility],[place] [address] 02/07/2019 08:53:44 02/07/2019 10:48:03 Hypertensive disorder 97955993 I10 bp stable cont same meds Congestive heart failure 87073358 I50.9 stable and without exacerbati ons is euvolemic echo is done recently and is excellent per verbal report Chronic diarrhea 6237597 09 K52.9 major lab done GI f/u andsierra have colonosc next nov Morbid obesity 191457866 E66.01 with the diarrhea he [place] been losing wgt [id number] Garry Graves [facility] [address] [facility] [address] [address] 05/07/2019 10:23:47 05/07/2019 10:53:59 Hypertensive disorder 95813878 I10 bp stable cont same meds Congestive heart failure 79021285 I50.9 stable and without exacerbati ons is euvolemic echo is done recently and is excellent per report Obstructiv e sleep apnea syndrome 18070035 G47.33 stable and cont on [facility] cpap Diarrhea 16109661 R19.7 None since colonoscop y Crohn's disease 61018370 K50.90 Biopsy/abd CT of GI showed low grade inflammati on suggestive of Crohn's Seeing GI in one week Daughter has Crohn's [id number] Garry Graves [facility] [address] [facility] [address] [address] 08/17/2019 09:29:29 08/17/2019 12:16:51 Congestive heart failure 48198824 I50.9 stable and without exacerbati ons is euvolemic echo is done recently and is excellent per report Hypertensive disorder 38 668438 I10 bp stable cont same meds Obstructiv e sleep apnea syndrome 55312838 G47.33 stable and cont on [facility] cpap Microcytic anemia 432768 007 D50.9 will be needing to take iron tab will use wifes MVI wish to get iron studies but he wont go out to get lab [id number] Garry Graves [facility] [address] [facility] [address] [address] 12/07/2019 08:58:03 12/07/2019 11:52:09 Congestive heart failure 06860541 I50.9 stable and without exacerbati ons is euvolemic echo is done recently and is excellent per report needs to renew his lasix no leg swelling Crohn's disease 88796730 K50.90 Biopsy/abd CT of GI showed low grade inflammati on suggestive of Crohn's Seeing GI in one week Daughter has Crohn's Hypertensive disorder 38 431544 I10 bp stable cont same meds Obstructiv e sleep apnea syndrome 34882050 G47.33 stable and cont on [facility] cpap [id number] Garry Graves DO [facility] [address] [facility] [address] [address] 04/28/2020 08:45:16 04/28/2020 10:57:40 Congestive heart failure 56789712 I50.9 stable and without exacerbati ons is euvolemic echo is done recently and is excellent per report needs to renew his lasix no leg swelling Hypertensive disorder 38 959703 I10 bp stable cont same meds Obstructiv e sleep apnea syndrome 55765678 G47.33 stable and cont on his cpap Morbid obesity 042421315 E66.01 long discussion re prob with his eating states is at 334 Crohn's disease 70937606 K50.90 seen by GI and has been started on HUmira pt is feeling better and will be seeing GI appt in may Garry Graves DO [facility] [address] [facility] [address],[place] [address] 11/28/2020 11:06:02 11/28/2020 12:11:18 Hypertensive disorder 08390881 I10 bp stable cont same meds Congestive heart failure 78700367 I50.9 stable and without exacerbati ons is euvolemic echo is done recently and is excellent per report needs to renew his lasix no leg swelling Obstructiv e sleep apnea syndrome 94772333 G47.33 stable and cont on his cpap Hepatitis C screening 41 9419529 Z11.59 Morbid obesity 450437913 E66.01 long discussion re prob with his eating states is at 302 with the weight loss from the crohns Crohn's disease 07100003 K50.90 seen by GI and has been started on Entyvil IV infusion regimen pt is feeling better and will be seeing GI appt 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 7743518796 106 K50.018 we will have him see a rheumatolo gist [id number] SAI PIERCE [facility] [address] [facility] [address],[place] [address] 12/10/2020 09:52:05 12/10/2020 11:56:49 Neck pain 08259809 M54.2 will start on msk relaxer and tramadolfu with XR Torticollis 94508981 M43 .6 fu with MSK relaxer [id number] SAI PIERCE [facility] [address] [facility],[place] [place] [address] 01/06/2021 09:05:10 01/06/2021 12:01:51 Epidermoid cyst of skin 826353042 L72.3 will fu with general surgeon for removal Degenerati on of cervical intervertebral disc 43788983 M50.30 will fu with PVSS [id number] SAI PIERCE [facility] [address] [facility],[place] [address] 03/16/2021 11:22:42 03/16/2021 12:41:23 Low back pain 345673348 M54.59 will fu with XR to start on his low back Abnormal gait 73465886 R 26.9 will fu with order for stand up walker Bursitis o f olecranon of right elbow 7912508889 15[address]70[address] Bhardwaj about the pred taper [id number] Garry Graves DO [facility] [address] [facility],[place] [address] 04/20/2021 10:25:43 04/20/2021 12:42:30 Hypertensive disorder 53563719 I10 bp stable cont same meds Congestive heart failure 59836438 I50.9 stable and without exacerbati ons is euvolemic echo is done recently and is excellent per report needs to renew his lasix no leg swelling Obstructiv e sleep apnea syndrome 57907707 G47.33 stable and cont on his cpap Crohn's disease 93681792 K50.90 seen by GI and has been started on Entyvil IV infusion regimen pt is feeling better and will be seeing GI appt Degenerati on of lumbar intervertebral disc 06519454 M51.36 Hearing loss 55682254 H9 0.3 will need audiogram 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 8504101282 105 M48.02 following sports med and undergoing PT will follow and obtain an emg nct if worsening as the [place] [id number] Garry Graves [facility] [address] [facility] [address] [place] [address] 08/24/2021 10:25:17 08/24/2021 11:40:12 Hypertensive disorder 27597697 I10 bp stable cont same meds Congestive heart failure 93348424 I50.9 stable and without exacerbati ons is euvolemic echo is done recently and is excellent per report needs to renew his lasix no leg swelling Morbid obesity 208297268 E66.01 long discussion re prob with his eating states is at 322 \told him this will lower his life expectancy s Crohn's disease 27788221 K50.90 seen by GI and has been started on Entyvil IV infusion regimen pt is feeling better and will be seeing GI appt [id number] Garry Graves [facility] [address] [facility],[place] [address] 12/11/2021 14:47:03 12/11/2021 16:18:04 Hypertensive disorder 48047202 I10 bp stable cont same meds Depression screening 171 081861 Z13.31 negative PHQ2 screening at today's visit Crohn's disease 78791904 K50.90 seen by GI and= is on methotrexa te sq injection pt is feeling better and will be seeing GI appt Congestive heart failure 34333680 I50.9 stable and without exacerbati ons is euvolemic echo is done recently and is excellent per report needs to renew his lasix no leg swelling Osteoarthritis 607095025 M19.90 he is still struggling with the arthralgia [id number] Garry Graves [facility] [address] [facility] [address],[place] [address] 04/30/2022 10:54:24 04/30/2022 15:17:59 Congestive heart failure 90693696 I50.9 stable and without exacerbati ons is euvolemic echo is done recently and is excellent per report needs to renew his lasix no leg swelling Hypertensive disorder 38 729574 I10 bp stable cont same meds Osteoarthritis 141036695 M19.90 he is still struggling with the arthralgia encouraged to walk Obstructiv e sleep apnea syndrome 97969532 G47.33 stable and cont on his cpap but wondering about a new device for the chest??? [id number] Garry Graves DO [facility] [address] [facility],[place] [place] [facility] [place] [address] 11/26/2022 10:17:44 11/26/2022 11:32:27 Congestive heart failure 86096220 I50.9 stable and without exacerbati ons is euvolemic echo is done recently and is excellent per report needs to renew his lasix no leg swelling Hypertensive disorder 38 840266 I10 bp stable cont same meds Morbid obesity 192170749 E66.01 he has lost 8 lbs Crohn's disease 95741366 K50.90 seen by GI and= is on methotrexa te sq injection pt is feeling better and will be following GI appt [id number] SAI PIERCE [facility] [address] [facility], [facility] [address] 06/06/2023 10:12:51 06/06/2023 10:41:44 Morbid obesity 274711232 E66.01 stable Hypertensive disorder 38 218727 I10 cleared by cardiology Obstructiv e sleep apnea syndrome 95892955 G47.33 stable, no changes Congestive heart failure 41889611 I50.89 stable per cardiology Pre-surger y evaluation 766040801 Z01.818 The patient was seen in the office today for pre-op evaluation . All medical conditions on patient's problem list were addressed and are currently stable, no interventi on needed at this time. Based on history and physical performed, the patient is cleared for surgery. [id number] Garry Graves DO [facility] [address] [facility],[address] [place] [address] 08/17/2023 10:37:50 08/17/2023 11:36:58 Crohn's disease 52478965 K50.90 seen by GI and= is on methotrexa te sq injection pt is feeling better and will be following GI appt Congestive heart failure [id number] I50.89 stable and without exacerbati ons his recent cardiac work up was ecellent including echo and heart cath is euvolemic needs to renew his lasix no leg swelling Hypertensive disorder 38 837839 I10 bp stable cont same meds Morbid obesity [id number] E66.01 no further wgt loss Chronic to phaceous gout [id number] M1A.9XX1 Acute righ t otitis media [id number] H66.91 [id number] [facility] [address] [facility] [address] [place] [facility] [place] [address] 10/19/2023 13:46:51 10/19/2023 14:34:25 Acute right otitis media [id number] H66.91 has now resolved discussed in depth how TM can get infected Depression screening 171 247313 Z13.31 negative PHQ2 screening at today's visit Hypertensive disorder 38 255947 I10 bp stable cont same meds Degenerati on of lumbar intervertebral disc 38428137 M51.36 still about the same but he is manging Congestive heart failure 42969668 I50.89 stable and without exacerbati ons his recent cardiac work up was ecellent including echo and heart cath is euvolemic needs to renew his lasix no leg swelling Morbid obesity 744231125 E66.01 no further wgt loss Psoriatic arthritis 1563 37173 L40.50 having a hard time getting this controlled hurts to walk any distancedo es have a handicap platehas been on MTX for this Crohn's disease 78865097 K50.90 seen by GI and= is on methotrexa te sq injection an stable with Entyvio pt is feeling better and will be following GI appt [id number] Garry [facility] [address] [facility] [address] [address] 02/08/2024 16:03:32 02/10/2024 08:57:21 Congestive heart failure [id number] I50.89 stable and without exacerbati ons his recent cardiac work up was ecellent including echo and heart cath is euvolemic needs to renew his lasix no leg swelling Psoriatic arthritis 1563 10612 L40.50 having a hard time getting this controlled hurts to walk any distancedo es have a handicap platehas been on MTX for this Obstructiv e sleep apnea syndrome 92752145 G47.33 stable and cont on his cpap [...] 11/26/2022 2 [place] Hector Hernández Isaiah [id number] Hector Isaiah 11/26/2022 1 [place] [facility] Hector Hernández Isaiah [id number] V93 Hector Isaiah 06/06/2023 2 [place] Hector Hernández Isaiah [id number] Hector Isaiah 06/06/2023 1 [place] [facility] Hector Hernández Isaiah [id number] V93 Hector Isaiah 08/17/2023 2 [place] Hector Hernández Isaiah [id number] Hector Isaiah 08/17/2023 1 [place] [facility] Hector Hernández Isaiah [id number] V93 Hector Isaiah 10/19/2023 2 [place] Hector Hernández Isaiah [id number] Hector Isaiah 10/19/2023 1 [place] [facility] Hector Hernández Isaiah [id number] V93 Hector Isaiah 02/08/2024 2 [place] Hector Hernández Isaiah [id number] Hector Isaiah 02/08/2024 1 [place] [facility] Hector Hernández Isaiah [id number] V93 Hector Isaiah Notes Date Note Type Note Provider Name and Address Organization Details Recorded Time 3 text/htm l here for ambreen overall is doing okrelates that he is not having cpno sob unless exert uses cpapbowels are goodbladder okarthritis is what is kicking his ass and state s he is quite frustrated with this at times Garry Graves, DO [address] [facility], [place], [address], [facility] 11/26/2022 10:52:15 4 text/htm l Pre-OpReported bypatient.Surgery to be Performed:carpal tunnel surgery (bilaterally) and both elbows (biopsy) with Dr. Colin at [facility] Severity:severe Risk Factorsno cognitive impairment; no functional [...] Support:adequate assistance at home () cleared by financial services director and typing teacher SAI PIERCE [address] [place], [address], [facility] 06/06/2023 10:36:13 4 [...] should be restarted Garry Graves DO [address] [place], [address], [facility] 08/17/2023 11:35:26 4 [...] controlled no bleeding Garry Graves DO [address] [facility], [place], [address], [facility] 10/19/2023 14:23:32 4 text/htm l here for rechk and is doing jessica MTX and recent lab shows ongoing anemia creat is still ok overallarhtritis is bothering himcrohns is quiet ]'gout has been the issue uric acid is 7.2 Garry Graves DO [address] [facility], [place], [address], [facility] 02/09/2024 23:02:06
[2024-07-26 11:27] LABS: MANUAL DIFF FLAG NO
[2024-07-26 11:47] LABS: Basophils Percent Auto 0.2 % (0-2); Eosinophils Absolute Auto 0.1 X10*3/uL (0.0-0.4); Eosinophils Percent Auto 1.7 % (0-4); Hematocrit 31.1 % (42.0-52.0); Hemoglobin 10.4 g/dl (14.0-18.0); Imm Gran Abs Auto 0.03 X10*3/uL (0.00-0.03); Imm Gran Pct Auto 0.7 % (0.0-0.4); Lymphocytes Absolute Auto 0.8 X10*3/uL (1.2-4.9); Lymphocytes Percent Auto 18.2 % (20-40); Mean Corpuscular HGB Conc 33.4 g/dl (31.0-36.0); Mean Corpuscular Volume 95.7 fL (80.0-98.0); Mean Platelet Volume 11.5 fL (9.4-12.4); Monocytes Absolute Auto 0.2 X10*3/uL (0.1-1.2); Monocytes Percent Auto 5.4 % (2-11); Neutrophils Percent Auto 73.8 % (45-73); Platelet Count 167 X10*3/uL (160-400); Red Blood Count 3.25 X10*6/uL (4.60-5.80); Red Cell Distribution Width 16.4 % (11.0-16.0); White Blood Count 4.1 X10*3/uL (4.8-10.8)
[2024-07-26 12:21] LABS: Anion Gap 13 (12-20)
[2024-07-26 12:26] LABS: Alanine Aminotransferase 14 U/L (0-40); Albumin Level 4.2 g/dL (3.5-5.0); Alkaline Phosphatase 83 U/L (39-117); Aspartate Amino Transferase 26 U/L (5-37); Bilirubin Total 0.9 mg/dL (0.0-1.0); Blood Urea Nitrogen 35 mg/dL (9-16); C Reactive Protein 2.04 mg/dL (< or = 0.50); Calcium 9.2 mg/dL (8.4-10.2); Carbon Dioxide 24 mmol/L (22-29); Chloride 109 mmol/L (96-108); Estimated Glomerular Filt Rate 50; Glucose Random 157 mg/dL (60-115); Potassium 4.2 mmol/L (3.3-5.1); Sodium 142 mmol/L (135-145); Total Protein 7.5 g/dL (6.5-8.0)
[2024-07-26 12:29] LABS: Erythrocyte Sedimentation Rate 23 MM/HR (0-15)
[2024-07-26 12:40] LABS: Uric Acid 6.7 mg/dL (3.4-7.0)
[2024-07-26 14:12] LABS: Appearance Urine Clear; Color Urine Yellow; Glucose Urine UA Negative (Negative); Leukocyte Esterase Urine Negative (Negative); Nitrite Urine Negative (Negative); Urine Blood Negative (Negative); Urine Ketones Negative (Negative); Urine Protein Negative (Neg-Trace)
== END 2024-07-26 09:00 | disposition home or self-care (01) ==
LOC: HO.WFDLDS 08:59
PROVIDERS: Referring Provider Student in an Organized Health Care Education/Training Program; Visit Provider Internal Medicine Hypertension Specialist
DX: N18.31 Chronic kidney disease, stage 3a (principal); Z79.631 Long term (current) use of antimetabolite agent
CPT/HCPCS: 36415; 80053; 81003; 84550; 85025; 85652; 86140

== ENCOUNTER 2024-08-07 10:15 | Outpatient (AMB) | payer MEDICARE, MEDICAID, SELFPAY ==
[2024-08-07 10:21] VITALS: BP 136/52; PULSE 72; O2SAT 94; BMI 46.3
--- NOTE | 2024-08-07 10:21 | HO.NEPHOV_ITS ---
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 Required: No Accompanied by: Spouse Allergies tramadol Allergy (Mild, Verified 08/07/24 10:23) Dizziness Medication List - Last Reconciled 08/07/24 by Olegario Diggs MD acetaminophen ER (Tylenol Arthritis Pain) 1,300 mg PO Q8H allopurinol 300 mg PO DAILY amlodipine 10 mg PO QAM apixaban (Eliquis) 5 mg PO BID ferrous sulfate 324 mg PO DAILY folic acid 1 mg PO DAILY furosemide 80 mg PO QAM insulin syringe,safety needle (BD SafetyGlide Insulin Syringe) USE ONCE WEEKLY TO INJECT METHOTREXATE losartan 100 mg PO QAM methotrexate sodium 60 mg subcut QWEEK multivitamin 1 tab PO DAILY pantoprazole 40 mg PO QAM vxpgwqbq-oggr-uqkaw-oreg-capry 100 mg-150 mg- 50 mg-150 mg 1 cap PO DAILY vedolizumab (Entyvio) 300 mg IV Q8W HPI Comments Details: Sheyla is a pleasant 68-year-old man with a history of longstanding hypertension and Crohn's disease who was found to have recent elevation serum creatinine. Back in 2022 serum creatinine was around 1.05-1.17 mg/dL. Since June of 2023 there has been a gradual increase in serum creatinine and the recent creatinine was 1.55 as of 04/10/2024. He is on Lasix 80 mg once a day. There has been no recent change in antihypertensive medications. He has a history of Crohn's disease. 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 He is currently on methotrexate. History of gout and he is on allopurinol. History of restrictive lung disease History of obstructive sleep apnea on CPAP. History of moderate right heart failure by echocardiogram Does not take any NSAIDs or other nephrotoxic agents. [facility] Medical History COVID-19 Claustrophobia Arthritis Atrial septal defect Atrial fibrillation Gouty tophi of joint Restrictive lung disease Cervical spondylosis Epidermal cyst Essential hypertension Chronic right heart failure Crohn's disease TIFFANY on CPAP Morbid obesity Surgical History Hx of carpal tunnel repair History of colon resection History of excision of epidermal inclusion cyst (~03/27/21) History of esophagogastroduodenoscopy (EGD) Status post surgical atrial septal defect closure History of colonoscopy Family History Father Hx of Crohn's disease Cancer Mother Hx of type 2 diabetes mellitus Social History Are you a primary home care administrator to a significant other at home: No Do you presently have visiting nurse or other home services: No Alcohol intake: never Comment: counts correct Patient Tobacco Use Status: Former Tobacco user Tobacco use type: Cigarette Years Smoked: 10 +/- Current occupational status: retired Current occupation: right hand dominant Physical Exam Vital Signs: Last Vital Signs Pulse 72 08/07/24 10:21 BP 136/52 L 08/07/24 10:21 Pulse Ox 94 08/07/24 10:21 Oxygen Delivery Method Room Air 08/07/24 10:21 BMI result Body Mass Index 46.3 Comfortable Neck supple no JVD. Lungs entry equal no rales. Heart S1-S2 heard no gallop or rub. Abdomen soft nontender. Neuro alert awake oriented. No asterixis. Extremities no edema. Results Reviewed Nephrology Results: Hgb 10.4 g/dl (14.0-18.0) L 07/26/24 WBC 4.1 X10*3/uL (4.8-10.8) L 07/26/24 Plt Count 167 X10*3/uL (160-400) 07/26/24 Sodium 142 mmol/L (135-145) 07/26/24 Potassium 4.2 mmol/L (3.3-5.1) 07/26/24 Chloride 109 mmol/L (96-108) H 07/26/24 Carbon Dioxide 24 mmol/L (22-29) 07/26/24 BUN 35 mg/dL (9-16) H 07/26/24 Creatinine 1.42 mg/dL (0.5-1.4) H 07/26/24 Calcium 9.2 mg/dL (8.4-10.2) 07/26/24 Urine Protein Negative mg/dL (Neg-Trace) 07/26/24 Urine Creatinine 132.64 mg/dL 05/14/24 Renal US 05/19/24 Assessment & Plan Assessment & Plan (1) CKD (chronic kidney disease): Code(s): N18.9 - Chronic kidney disease, unspecified Category: Medical Qualifiers: Chronic kidney disease stage: stage 3 (moderate) Chronic kidney disease stage 3 subtype: stage 3a (GFR 45-59) Qualified Code(s): N18.31 - Chronic kidney disease, stage 3a Plan 68-year-old man with chronic kidney disease and superimposed JOSE GUADALUPE in the setting of longstanding hypertension, Crohn's disease, obesity. Obstructive sleep apnea and right heart failure. He has CKD stage 3. Renal function remains unchanged over the last few months. No evidence of obstruction based on ultrasonogram. 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 The bump in creatinine he has not occurred until 2023. He is on high dose of diuretics. Clinically appears euvolemic. At present I have we will continue the current dose of diuretics. Encouraged to stay on low-sodium diet. Continue to avoid nephrotoxic agents including NSAIDs. Given the degree of renal failure I decreased allopurinol from 400 mg down to 300 mg. Repeat uric acid level was 6.7. Today no changes were made. Continue to monitor renal function closely and continue to avoid nephrotoxic agents. Orders: Orders Complete Blood Count no Diff 3 Months N101.13 - Chronic kidney disease, stage 3a Parathyroid Hormone Intact 3 Months N1. - Chronic kidney disease, stage 3a Comprehensive Met. Panel 3 Months N1.31 - Chronic kidney disease, stage 3a Uric Acid 3 Months N18.31 - Chronic kidney disease, stage 3a Vitamin D 25-OH Total 3 Months N131 - Chronic kidney disease, stage 3a Coding Level of Care Code Est Pt Level 4 (89992) Diagnoses Stage 3a chronic kidney disease N18 Chronic kidney disease stage: stage 3 (moderate) Chronic kidney disease stage 3 subtype: stage 3a (GFR 45-59)
--- OUTSIDE RECORDS SUMMARY | 2024-08-07 12:18 | XMS_ITS | Patient Health Record ---
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 Name Role Phone Star SEGURA, Garry Primary Care Provider Daisy George Unavailable [phone] Lorenzo Solomon Unavailable [phone] Allergies Allergen (clinical drug ingredient) Drug/Non Drug [...] primary osteoarthritis of the ankle and/or foot (986786250) Primary osteoarthritis, left ankle and foot (M19.072) Active confirmed Problem Plantar fascial fibromatosis (20450168) Plantar 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) Active confirmed Problem Acquired hammer toe of right foot (3456109138180366) Other hammer toe(s) (acquired), right foot (M20.41) Active confirmed Problem Acquired hammer toe of left foot (1476777979586220) Other hammer toe(s) (acquired), left foot (M20.42) Active confirmed Problem 70815312 Venous insufficiency (I87.2) Active confirmed Vital Signs Height 5 ft 11 in in 08/25/2023 Weight 334 lbs 08/25/2023 BMI 46.58 kg/m2 08/25/2023 Encounters Encounter Location Date Provider Diagnosis [address] [address] 08/25/2023 Solomon Ventura Plantar fascial fibromatosis M72.2 [...] Localized edema R60.0 and Venous insufficiency I87.2 [facility] [address] [address] 09/28/2023 Solomon Ventura Assessments Encounter Date Diagnosis [...] Details Provider Name:Daisy collado, 08/30/2024 11:15:00 AM, [address] [place] [address], [phone], Insurance Providers Payer Name Payer Address Payer Phone Subscriber Number Group Number Insured Name Patient Relationship to Insured Coverage Start Date Coverage End Date Medicare [employer] [address] [place] [address] [id number] Hector Colon Self - patient is the insured Medical (General) History Medical History History ICD Code transfusions diverticulosis chicken pox back, hip, knee pain chron's Surgical History Surgery Date(Month/Year) colon/intestinal surgery heart surgery unspecified kymberly
--- OUTSIDE RECORDS SUMMARY | 2024-08-07 12:18 | XMS_ITS | Data Portability ---
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 [email or web address] Not available 02/08/2024 16:33:32 Plan of Treatment Reminders Order Date Submit Date Provider Last Modified By Organization Details Last Modified Time Details Appointments FOLLOW UP 15 2024 02:45P M DR VALDEZ Not available Not available Not available Lab vitamin D, 25-hydrox y, total, serum 2022 023 NELA [facility] (Centralized Electronic Ordering - All Locations), Patient Can Go To The Location Of Their Choice, 12/15/2022 12:56:38 vitamin B12, serum 2022 023 NELA [facility] (Centralized Electronic Ordering - All Locations), Patient Can Go To The Location Of Their Choice, 12/15/2022 12:56:38 vitamin B1 (thiamine ), serum 2022 023 NELA [facility] (Centralized Electronic Ordering - All Locations), Patient Can Go To The Location Of Their Choice, 12/20/2022 11:16:12 folate, serum 2022 023 NLEA [facility] (Centralized Electronic Ordering - All Locations), Patient Can Go To The Location Of Their Choice, [id number] 12/15/2022 12:56:38 CMP, serum or plasma 2022 023 ATHENAFAX [facility] (Centralized Electronic Ordering - All Locations), Patient Can Go To The Location Of Their Choice, [id number] 11/26/2022 10:55:22 pro BNP (pro B-type natriuret ic peptide), serum or plasma 2022 023 NELA [facility] (Centralized Electronic Ordering - All Locations), Patient Can Go To The Location Of Their Choice, [id number] 12/15/2022 12:56:38 CBC 2022 023 ATHENAFAX [facility] (Centralized Electronic Ordering - All Locations), Patient Can Go To The Location Of Their Choice, [id number] 11/26/2022 10:55:21 Referral None recorded. Procedures None recorded. Surgeries None recorded. Imaging None recorded. Medication Orders amoxicill in 875 mg-potass ium clavulana te 125 mg tablet 2023 024 [id number], [address] [place], [place], [id number], 10/19/2023 13:55:23 Patient TargetsNo targets recorded. Patient Instructions Encounter Date Encounter Id Patient Instructions Last Modified By Organization Details Last Modified Time 08/17/2023 [id number] pulse oximetry* Not available 08/17/2023 11:13:27 10/19/2023 [id number] When You Want to Lose Weight: Care Instructions Not available 10/19/2023 14:23:11 crohn's disease: care instructions Not available 10/19/2023 14:23:11 heart failure: care instructions Not available 10/19/2023 14:23:11 learning about heart failure Not available 10/19/2023 14:23:11 02/08/2024 [id number] pulse oximetry* Not available 02/09/2024 23:02:02 sleep apnea: car e instructions Not available 02/09/2024 23:02:02 Reason for Referral None Reported. Results Created Date Observation Date Name Description Value Unit Range Abnormal Flag Note LastModifiedBy Organization Detail LastModifiedTime 08/17/19 24 08/17/2023 pulse oxime try* Result 97 Not Available [facility] [address] [facility] [address], [place], [address], 08/15/2023 14:00:34 02/08/20 24 02/08/2024 pulse oxime try* Result 97 Not Available [facility] [address] [facility] [address], [place], [address], 02/06/2024 12:00:52 02/01/20 23 01/28/2023 MRI, cervi nia spine , w/o contr ast No observ ation record ed. [facility] [place] [address] [address], [place], [address], 01/31/2023 15:06:36 06/28/19 24 06/24/2023 US, echoc ardio gram No observ ation record ed. [facility] [address], [place], [address], 08/17/2023 10:58:21 Result Notes None recorded. Problems Name Problem SNOMED Code Status Onset Date Resolution Date Notes Provider Name and Address Organization Details Recorded Time Crohn's disease 00539389 Active 2019 Garry Valdez DO [address] [facility], [place], [address], [place] [facility] 0 11:51:44 Degenerati on of lumbar interverte bral disc 00046745 Active 2020 Garry Valdez DO [address] [facility], [place], [address], [place] [facility] 10:47:53 Osteoarthr itis 507336103 Active 2021 Garry Valdez DO [address] [place] [address], [address], [facility] 2 15:14:41 Degenerati ve joint disease of hand 07141815 Active 2022 SAI PIERCE [address] [place] [address], [address], [facility] 3 15:28:27 COVID-19 724893099 Active 2023 Garry Valdez, DO [address] [place] [address], [address], [facility] 4 13:31:54 Chronic tophaceous gout 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 Active 2023 Garry Valdez DO [address] [place] [address], [address], [facility] 4 11:11:39 Acute right otitis media 997884956 Active 2023 Garry Valdez, [address] [place] [address], [address], [facility] 4 11:34:54 Psoriatic arthritis 344493022 Active 2023 Garry Valdez [address], [address], [facility] 4 14:16:12 Morbid obesity 433865197 Active 2017 Susan burgess [facility] 8 08:45:56 Congestive heart failure 19938932 Active 2017 Susan burgess [facility] 8 08:45:59 Obstructiv e sleep apnea syndrome 59113145 Active 2017 Susan burgess [facility] 8 08:46:05 Hypertensi ve disorder 19951669 Active 2017 Susan burgess [facility] 8 08:46:10 Problem Notes None recorded. Procedures Surgical History Date Name Laterality Status Provider Name and Address Organization Details Recorded Time 019 Corticosteroid Injection completed Garry Valdez, DO [address] [place], [address], [place] [facility] 01/08/2019 10:11:59 Imaging Results Imaging Date Name Status LastModified by Organization Details LastModified Time 01/28/2023 MRI, cervical spine, w/o contrast completed [facility] [place] [address] [facility] [address], [place], [address], 01/31/2023 15:06:36 06/24/2023 US, echocardiogram completed [facility] [address] [place] [address] [address], [place], [address], 08/17/2023 10:58:21 Procedure Notes None recorded. Medical Equipment None Reported. Allergies Allergen ID Allergen Name Allergen Category Reaction Reaction Severity Criticality Documentation Date Start Date Code Code System Note Provider Name and Address Organization Details Recorded Time 3160 meloxicam medicatio n diarrhea severe Not available 11/20/20182018 16601 RxNorm Garry Valdez, DO [address] [place], [address], [place] [facility] 9 17:32:39 4698 tramadol medicatio n dizziness moderate Not available 01/06/2021 78571 RxNorm SAI PIERCE [address] [place], [address], [facility] 11:05:59 Medications Name Sig Start Date Stop Date Status Note LastModified by Organization Details LastModified Time losartan 50 mg tablet TAKE 1 TABLET BY MOUTH DAILY 04/30 completed Not Available Not Available Not Available amoxicillin 500 mg capsule 11/20 completed Not Available Not Available Not Available furosemide 40 mg tablet TAKE 2 TABLETS BY MOUTH EVERY DAY 2024 active Not Available Not Available Not Avai [...] TAKE 1 TABLET BY MOUTH EVERY DAY 2024 active Not Available Not Available Not Avai lable cephalexin 500 mg capsule TAKE 1 CAPSULE BY MOUTH EVERY 6 HOURS FOR 9 DAYS 04/20 completed Not Available Not Available Not Available pantoprazol e 40 mg tablet,bartolo yed release TAKE 1 TABLET BY MOUTH EVERY DAY 2024 active Not Available Not Available Not Avai [...] TAKE 1 TABLET BY MOUTH TWICE DAILY needs appt for further refills. call office 2024 active Not Available Not Available Not Avai [...] Updated DateTime 3 177.8 cm 46.8 kg/m2 752199. 11 g 66 /min 97 % 97 % 140 mm[Hg] 90 mm[Hg] Jeane Peralta [facility] 3 10:29:37 Date Recorded Body height Body mass index (BMI) Body weight Heart rate Oxygen saturation Oxygen saturation in Arterial blood by Pulse oximetry Systolic blood pressure Diastolic blood pressure Provider Name and Address Organization Details Last Updated DateTime 4 177.8 cm 45.3 kg/m2 747292. 19 g 67 /min 97 % 97 % 140 mm[Hg] 70 mm[Hg] Jeane Peralta [facility] 4 10:19:26 Date Recorded Body height Body mass index (BMI) Body weight Heart rate Oxygen saturation Oxygen saturation in Arterial blood by Pulse oximetry Systolic blood pressure Diastolic blood pressure Provider Name and Address Organization Details Last Updated DateTime 4 177.8 cm 44.9 kg/m2 134788. 41 g 55 /min 97 % 97 % 140 mm[Hg] 60 mm[Hg] Jeane Peralta [facility] 4 10:44:51 Date Recorded Body height Body mass index (BMI) Body weight Heart rate Respiratory rate Oxygen saturation Oxygen saturation in Arterial blood by Pulse oximetry Systolic blood pressure Diastolic blood pressure Provider Name and Address Organization Details Last Updated DateTime 4 177.8 cm 44.9 kg/m2 365486. 41 g 52 /min 18 /min 99 % 99 % 132 mm[Hg] 66 mm[Hg] João Joyner [facility] 4 13:57:16 Date Recorded Body height Body mass index (BMI) Body weight Heart rate Oxygen saturation Oxygen saturation in Arterial blood by Pulse oximetry Systolic blood pressure Diastolic blood pressure Systolic blood pressure Diastolic blood pressure Provider Name and Address Organization Details Last Updated DateTime 4 177.8 cm 44.9 kg/m2 808394. 41 g 54 /min 97 % 97 % 140 mm[Hg] 70 mm[Hg] 132 mm[Hg] 70 mm[Hg] Jeane Fabian [facility] 4 16:35:02 Social History Question Answer Notes LastModified by Organizat ion Details LastModified Time Tobacco Smoking Status Former Smoker Not Available [facility] 03/18/2020 03:36:24 What Was The Date Of Your Most Recent Tobacco Screening? 02/08/2024 [email or web address] Information not available 02/08/2024 Do You Or [...] pneumococcal polysaccharide PPV23 0 [facility] 11:26:53 COVID-19, mRNA, LNP-S, PF, 30 mcg/0.3 mL dose 1 completed [facility] 11/25/2020 11:27:04 COVID-19, mRNA, LNP-S, PF, 30 mcg/0.3 mL dose 1 completed Nathalie Balicki [facility] 11/25/2020 11:27:11 Hep B, unspecified formulation 0 completed Nathalie Balicki [facility] 11/25/2020 11:27:24 Hep B, unspecified formulation 0 completed Nathalie Balicki [facility] 11/25/2020 11:27:31 Hep B, unspecified formulation 1 completed Nathalie Balicki [facility] 11/25/2020 11:27:37 Hep A, unspecified formulation 0 completed [facility] 11/25/2020 11:27:57 Hep A, unspecified formulation 0 completed [facility] 11/25/2020 11:28:04 Hep A, unspecified formulation 1 completed [facility] 11/25/2020 11:28:12 COVID-19, mRNA, LNP-S, PF, 30 mcg/0.3 mL dose 1 completed Susan Florez [facility] 01/06/2021 09:14:20 Influenza, split virus, quadrivalent, preservative 1 completed Susan burgess [facility] 08/24/2021 10:36:11 Tdap 9 completed Susan burgess [facility] 01/17/2019 08:11:56 Past Encounters Encounter ID Performer Location Encounter Start Date Encounter Closed Date Diagnosis/Indication Diagnosis SNOMED-CT Code Diagnosis ICD10 Code Diagnosis Note [id number] Garry Valdez [facility] [address] [facility],[place] [address] 09/13/2017 10:56:44 09/13/2017 16:01:17 Hypertensive disorder 56699406 I10 bp stable cont same meds Congestive heart failure 67293671 I50.9 stable and without exacerbati ons is euvolemic Tenosynovi tis of wrist 389230330 M65.839 [id number] Garry Valdez [facility] [address] [facility],[place] [address] 01/25/2018 09:33:47 01/25/2018 10:14:56 Morbid obesity 021520097 E66.01 chronic illness and not working on it Hypertensive disorder 38 318155 I10 bp stable cont same meds Congestive heart failure 60815076 I50.9 stable and without exacerbati ons is euvolemic Obstructiv e sleep apnea syndrome 44714026 G47.33 stable and cont on [facility] cpap Screening for cardiovascular system disease 977877217 Z13.6 Edema of l ower extremity 948556513 R60.0 cont two tabs of lasix need to check K+ levels and creat [id number] Mary Jo Washington NP, S [facility] [address] [facility], [place] [address] 05/23/2018 10:33:27 05/23/2018 16:49:35 Morbid obesity 672265779 E66.01 Work on weight loss Acute bronchitis 5724170 2 J20.9 Hypertensive disorder 38 768694 I10 mildly elevated, keep scheduled july appt Obstructiv e sleep apnea syndrome 35332048 G47.33 compliant with CPAP [id number] Garry Valdez [facility] [address] [facility],[place] [address] 08/02/2018 08:56:16 08/02/2018 12:49:34 Obstructive sleep apnea syndrome 64004951 G47.33 stable and cont on jhsi cpap Hypertensive disorder 38 932227 I10 bp stable cont same meds Congestive heart failure 14880871 I50.9 stable and without exacerbati ons is euvolemic Morbid obesity 558818275 E66.01 chronic illness and not working on it Wrist joint pain 5586644 09 M25.539 recc refer he will consider appt with dr nation [id number] Garry Valdez [facility] [address] [facility],[place] [address] 11/20/2018 16:16:38 11/20/2018 17:38:10 Adverse reaction to drug 74015033 T50.905A severe GI response to daily use of meloxicam that was orderd by specialist will need to take probiotics culturelle Hypertensive disorder 38 415736 I10 bp stable cont same meds Congestive heart failure 10010568 I50.9 stable and without exacerbati ons is euvolemic [id number] August IKE Hernandez [facility] [address] [facility],[place] [address] 12/27/2018 10:47:48 12/27/2018 13:47:31 Body mass index 40+ - severely obese 219324519 Z68.42 Hypertensive disorder 38 925299 I10 stable Obstructiv e sleep apnea syndrome 86377526 G47.33 uses cpap every night Knee pain 64948736 M25.5 69 right lateral knee pain OA vs tendinitis mendieta consider PT in future [id number] Garry Valdez [facility] [address] [facility],[place] [address] 01/08/2019 09:49:46 01/08/2019 10:20:43 Osteoarthritis of knee 001922431 M17.9 [place]alog [place] [id number] Garry Valdez [facility] [address] [facility] [address],[place] [address] 02/07/2019 08:53:44 02/07/2019 10:48:03 Hypertensive disorder 24132308 I10 bp stable cont same meds Congestive heart failure 96011761 I50.9 stable and without exacerbati ons is euvolemic echo is done recently and is excellent per verbal report Chronic diarrhea 1889571 09 K52.9 major lab done GI f/u jarred have colonosc next nov Morbid obesity 582302384 E66.01 with the diarrhea [place] been [place] wgt [id number] Garry Valdez [facility] [address] [facility] [address] [address] 05/07/2019 10:23:47 05/07/2019 10:53:59 Hypertensive disorder 87057695 I10 bp stable cont same meds Congestive heart failure 45002346 I50.9 stable and without exacerbati ons is euvolemic echo is done recently and is excellent per report Obstructiv e sleep apnea syndrome 65125747 G47.33 stable and cont on jhsi cpap Diarrhea 61178924 R19.7 None since colonoscop y Crohn's disease 56698622 K50.90 Biopsy/abd CT of GI showed low grade inflammati on suggestive of Crohn's Seeing GI in one week Daughter has Crohn's [id number] Garry Valdez [facility] [address] [facility],[place] [address] 08/17/2019 09:29:29 08/17/2019 12:16:51 Congestive heart failure 95821599 I50.9 stable and without exacerbati ons is euvolemic echo is done recently and is excellent per report Hypertensive disorder 38 118692 I10 bp stable cont same meds Obstructiv e sleep apnea syndrome 40067427 G47.33 stable and cont on jhsi cpap Microcytic anemia 947159 007 D50.9 will be needing to take iron tab will use wifes MVI wish to get iron studies but he wont go out to get lab [id number] Garry Valdez [facility] [address] [facility] [address],[place] [address] 12/07/2019 08:58:03 12/07/2019 11:52:09 Congestive heart failure 83368268 I50.9 stable and without exacerbati ons is euvolemic echo is done recently and is excellent per report needs to renew his lasix no leg swelling Crohn's disease 40670863 K50.90 Biopsy/abd CT of GI showed low grade inflammati on suggestive of Crohn's Seeing GI in one week Daughter has Crohn's Hypertensive disorder 38 664278 I10 bp stable cont same meds Obstructiv e sleep apnea syndrome 15946032 G47.33 stable and cont on jhsi cpap [id number] [facility] [address] [facility],[place] [address] 04/28/2020 08:45:16 04/28/2020 10:57:40 Congestive heart failure 27750181 I50.9 stable and without exacerbati ons is euvolemic echo is done recently and is excellent per report needs to renew his lasix no leg swelling Hypertensive disorder 38 852963 I10 bp stable cont same meds Obstructiv e sleep apnea syndrome 45265188 G47.33 stable and cont on his cpap Morbid obesity 192946155 E66.01 long discussion re prob with his eating states is at 334 Crohn's disease 13181535 K50.90 seen by GI and has been started on HUmira pt is feeling better and will be seeing GI appt in may [facility] [address] [facility],[place] [address] 11/28/2020 11:06:02 11/28/2020 12:11:18 Hypertensive disorder 75594040 I10 bp stable cont same meds Congestive heart failure 78744471 I50.9 stable and without exacerbati ons is euvolemic echo is done recently and is excellent per report needs to renew his lasix no leg swelling Obstructiv e sleep apnea syndrome 76704924 G47.33 stable and cont on his cpap Hepatitis C screening 41 3837416 Z11.59 Morbid obesity 897501122 E66.01 long discussion re prob with his eating states is at 302 with the weight loss from the crohns Crohn's disease 42984884 K50.90 seen by GI and has been started on Entyvil IV infusion regimen pt is feeling better and will be seeing GI appt 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 4927286217 106 K50.018 we will have him see a rheumatolo gist [id number] SAI PIERCE [facility] [address] [facility] [address],[place] [address] 12/10/2020 09:52:05 12/10/2020 11:56:49 Neck pain 74965435 M54.2 will start on msk relaxer and tramadolfu with XR Torticollis 56752837 M43 .6 fu with MSK relaxer [id number] SAI PIERCE [facility] [address] [facility] [address],[place] [address] 01/06/2021 09:05:10 01/06/2021 12:01:51 Epidermoid cyst of skin 280714742 L72.3 will fu with general surgeon for removal Degenerati on of cervical intervertebral disc 41112479 M50.30 will fu with PVSS [id number] SAI PIERCE [facility] [address] [facility] [address],[place] [address] 03/16/2021 11:22:42 03/16/2021 12:41:23 Low back pain 424578282 M54.59 will fu with XR to start on his low back Abnormal gait 99965646 R 26.9 will fu with order for stand up walker Bursitis o f olecranon of right elbow 9783671877 7[address]70[address] Bhardwaj about the pred taper [id number] Garry Valdez, [facility] [address] [facility],[place] [address] 04/20/2021 10:25:43 04/20/2021 12:42:30 Hypertensive disorder 78575507 I10 bp stable cont same meds Congestive heart failure 21675856 I50.9 stable and without exacerbati ons is euvolemic echo is done recently and is excellent per report needs to renew his lasix no leg swelling Obstructiv e sleep apnea syndrome 96478309 G47.33 stable and cont on his cpap Crohn's disease 86008346 K50.90 seen by GI and has been started on Entyvil IV infusion regimen pt is feeling better and will be seeing GI appt Degenerati on of lumbar intervertebral disc 93961667 M51.36 Hearing loss 78510237 H9 0.3 will need audiogram 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 [address] [facility], [facility] [place] [address] 08/24/2021 10:25:17 08/24/2021 11:40:12 Hypertensive disorder 43508780 I10 bp stable cont same meds Congestive heart failure 20687375 I50.9 stable and without exacerbati ons is euvolemic echo is done recently and is excellent per report needs to renew his lasix no leg swelling Morbid obesity 203495706 E66.01 long discussion re prob with his eating states is at 322 \told him this will lower his life expectancy s Crohn's disease 46494487 K50.90 seen by GI and has been started on Entyvil IV infusion regimen pt is feeling better and will be seeing GI appt [id number] Garry Valdez [facility] [address] [facility] [place] [address] 12/11/2021 14:47:03 12/11/2021 16:18:04 Hypertensive disorder 15712108 I10 bp stable cont same meds Depression screening 171 520247 Z13.31 negative PHQ2 screening at today's visit Crohn's disease 95409051 K50.90 seen by GI and= is on methotrexa te sq injection pt is feeling better and will be seeing GI appt Congestive heart failure 04879899 I50.9 stable and without exacerbati ons is euvolemic echo is done recently and is excellent per report needs to renew his lasix no leg swelling Osteoarthritis 047245584 M19.90 he is still struggling with the arthralgia [id number] Garry Valdez [facility] [address] [facility], [place] [address] 04/30/2022 10:54:24 04/30/2022 15:17:59 Congestive heart failure 76104981 I50.9 stable and without exacerbati ons is euvolemic echo is done recently and is excellent per report needs to renew his lasix no leg swelling Hypertensive disorder 38 970378 I10 bp stable cont same meds Osteoarthritis 720947553 M19.90 he is still struggling with the arthralgia encouraged to walk Obstructiv e sleep apnea syndrome 74249170 G47.33 stable and cont on his cpap but wondering about a new device for the chest??? [id number] Garry Valdez DO [facility] [address] [facility],[place] [address] 11/26/2022 10:17:44 11/26/2022 11:32:27 Congestive heart failure 44969665 I50.9 stable and without exacerbati ons is euvolemic echo is done recently and is excellent per report needs to renew his lasix no leg swelling Hypertensive disorder 38 459114 I10 bp stable cont same meds Morbid obesity 851148917 E66.01 he has lost 8 lbs Crohn's disease 99152275 K50.90 seen by GI and= is on methotrexa te sq injection pt is feeling better and will be following GI appt [id number] SAI PIERCE [facility] [address] [facility],[place] [address] 06/06/2023 10:12:51 06/06/2023 10:41:44 Morbid obesity 916652403 E66.01 stable Hypertensive disorder 38 751392 I10 cleared by cardiology Obstructiv e sleep apnea syndrome 34804266 G47.33 stable, no changes Congestive heart failure 62669543 I50.89 stable per cardiology Pre-surger y evaluation 782121587 Z01.818 The patient was seen in the office today for pre-op evaluation . All medical conditions on patient's problem list were addressed and are currently stable, no interventi on needed at this time. Based on history and physical performed, the patient is cleared for surgery. [id number] Garry Valdez DO [facility] [address] [facility],[place] [address] 08/17/2023 10:37:50 08/17/2023 11:36:58 Crohn's disease 90449026 K50.90 seen by GI and= is on methotrexa te sq injection pt is feeling better and will be following GI appt Congestive heart failure 26291807 I50.89 stable and without exacerbati ons his recent cardiac work up was ecellent including echo and heart cath is euvolemic needs to renew his lasix no leg swelling Hypertensive disorder 38 572338 I10 bp stable cont same meds Morbid obesity 033010047 E66.01 no further wgt loss Chronic to phaceous gout 50775739 M1A.9XX1 Acute righ t otitis media 213293996 H66.91 [id number] Garry Valdez [facility] [address] [facility] [address],[place] [address] 10/19/2023 13:46:51 10/19/2023 14:34:25 Acute right otitis media 103742010 H66.91 has now resolved discussed in depth how TM can get infected Depression screening 171 874161 Z13.31 negative PHQ2 screening at today's visit Hypertensive disorder 38 115033 I10 bp stable cont same meds Degenerati on of lumbar intervertebral disc 15164341 M51.36 still about the same but he is manging Congestive heart failure 87084920 I50.89 stable and without exacerbati ons his recent cardiac work up was ecellent including echo and heart cath is euvolemic needs to renew his lasix no leg swelling Morbid obesity 294937713 E66.01 no further wgt loss Psoriatic arthritis 1563 32202 L40.50 having a hard time getting this controlled hurts to walk any distancedo es have a handicap platehas been on MTX for this Crohn's disease 80831380 K50.90 seen by GI and= is on methotrexa te sq injection an stable with Entyvio pt is feeling better and will be following GI appt [id number] Garry Valdez [facility] Internal [facility] [address] 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 [...] 11/26/2022 2 [place] Hector Hernández Isaiah [id number] Hector Isaiah 11/26/2022 1 [place] [facility] Hector Hernández Isaiah [id number] Hector Isaiah 06/06/2023 2 [place] Hector Hernández Isaiah [id number] Hector Isaiah 06/06/2023 1 [place] [facility] Hector Hernández Isaiah [id number] Hector Isaiah 08/17/2023 2 [place] Hector Hernández Isaiah [id number] Hector Isaiah 08/17/2023 1 [place] [facility] Hector Hernández Isaiah [id number] V93 Hector Isaiah 10/19/2023 2 [place] Hector Hernández Isaiah [id number] Hector Isaiah 10/19/2023 1 [place]ICARE [place]: [facility] Hector Hernández Isaiah [id number] Hector Isaiah 02/08/2024 2 [place] Hector Hernández Isaiah [id number] Hector Isaiah 02/08/2024 1 [place] [facility] Hector Hernández Isaiah [id number] V93 Hector Isaiah Notes Date Note Type Note Provider Name and Address Organization Details Recorded Time 3 text/htm l here for ambreen overall is doing okrelates that he is not having cpno sob unless exert uses cpapbowels are goodbladder okarthritis is what is kicking his ass and state s he is quite frustrated with this at times Garry Valdez DO [address] [place], [address], [facility] 11/26/2022 10:52:15 4 text/htm l Pre-OpReported bypatient.Surgery to be Performed:carpal tunnel surgery (bilaterally) and both elbows (biopsy) with Dr. Colin at [facility] Severity:severe Risk Factorsno cognitive impairment; [...] Support:adequate assistance at home () cleared by cnc specialist and baby formula worker SAI PIERCE [address] [place], [address], [facility] 06/06/2023 10:36:13 4 text/htm [...] see if mtx should be restarted Garry Valdez DO [address] [place], [address], [facility] 08/17/2023 11:35:26 4 text/htm [...] issuecrohns is well controlled no bleeding Garry Valdez DO [address] [place], [address], [facility] 10/19/2023 14:23:32 4 text/htm l here for rechk and is doing jessica MTX and recent lab shows ongoing anemia creat is still ok overallarhtritis is bothering himcrohns is quiet ]'gout has been the issue uric acid is 7.2 Garry Valdez DO [address] [place], [address], [facility] 02/09/2024 23:02:06
--- OUTSIDE RECORDS SUMMARY | 2024-08-07 12:18 | XMS_ITS ---
Author Organization [facility] Address [address] [place] [address] Care Team Providers Care Escalator Installer Name Role Phone Garry Graves MD Primary Care Provider Daisy George Unavailable [phone] Solomon Ventura [phone] REASON FOR VISIT Rx Medications Medication SIG (Take, Route, Fr equency, Duration) Notes Start Date End Date Status Custom Orthotics as directed 09/29/2023 Active Encounters Encounter Location Date Provider Diagnosis [address] [address] 09/28/2023 Solomon Ventura Plan Of Treatment Medication Medication Name Sig Start Date Stop Date Notes Custom Orthotics as directed 09/29/2023 Next Appt Details Provider Name:Daisy collado, 08/30/2024 11:15:00 AM, [address] [place], [address], Progress Notes * Hector COLON KDOB:[birth year] (68 yo M)Acc No.[id number]:09/28/2023 Patient:?Hector Colon :1955???Age:68 Y???Sex:Male Address:[address], [place], [address] * Refills? Start Custom Orthotics, as directed * true * Date:? Generated for Printi ng/Faxing/eTransmitting on:?08/07/2024 12:18 PM EDT
--- OUTSIDE RECORDS SUMMARY | 2024-08-07 12:18 | XMS_ITS ---
Author Organization [facility] Address [address] [place] [address] Care Team Providers Care Engineering Programmer Name Role Phone Garry Graves MD Primary Care Provider Daisy George Unavailable [phone] Solomon Ventura Unavailable [phone] Allergies Allergen (clinical drug ingredient) Drug/Non Drug [...] Problem Status W/U Status Risk Notes Problem [id number] Venous insufficiency (I87.2) Active confirmed Vital Signs Height 5 ft 11 in in 08/25/2023 Weight 334 lbs 08/25/2023 BMI 46.58 kg/m2 08/25/2023 Encounters Encounter Location Date Provider Diagnosis [facility] [place] [address] [place] [address] 08/25/2023 Solomon Ventura Plantar fascial fibromatosis M72.2 [...] Provider Name:Daisy collado, 08/30/2024 11:15:00 AM, [address] [place], [address], Progress Notes * Hector COLON KDOB:[birth year] (68 yo M)Acc No.[id number]:08/25/2023 Progress Note Patient:?Hector Colon Edgar Provider:?Solomon Ventura DPM :1955???Age:68 Y???Sex:Male Narciso e:08/25/2023 Address:[address] [place], [place] [address] Pcp:Garry Graves MD Subjective: * Chief Complaints: * ???Last Visit PCP 08/17/23 * HPI: ???Heel pain:?Nature:?aching.?Location:?B/L, proximal plantar aspect of heel--left more severe than right.?Duration:?several years .?Onset/Cause:?unknown.?Course:?improved with use of upright walker over past sev months.?Aggrevated:?standing, walking.?Treatments:?rest, change in shoes, innersoles, corticosteriod injection; custom orthoses and aleve; rest helps the most; methotrexate for tx of arthritis; Dr. Balderrama--[facility] rheum.?Skin problems:?Nature:?dryness.?Location:?Heel/Rearfoot, B/L .?Duration:?several weeks.?Onset/Cause:?unknown.?Treatments:?medication ( Eucerin).?Severity/Quality:?moderate.?Foot [...] Exercise. ?Marital status: . ?Occupation: Retired-[employer]. * Medications:?TakingAllopurin ol 100 MG Tablet [...] DPM Date:? 024 Generated for Capo raman/Davidson/Agathaitting on:?08/07/2024 12:18 PM EDT History and Physical Notes * HPI (History [...] most; methotrexate for tx of arthritis; Dr. Balderrama--[facility] rheum Skin problems Nature: dryness Location: Heel/Rearfoot, [...]
== END 2024-08-07 10:41 | disposition home or self-care (01) ==
LOC: HO.HKA 10:16
PROVIDERS: PCP Internal Medicine; Visit Provider Internal Medicine Hypertension Specialist
DX: N18.31 Chronic kidney disease, stage 3a (principal)
CPT/HCPCS: 99214

== ENCOUNTER → 2024-08-07 10:15 | Outpatient (BNVA) | payer MEDICARE, MEDICAID, SELFPAY | PROVIDERS: PCP Internal Medicine; Visit Provider Internal Medicine Hypertension Specialist | DX: N18.31 Chronic kidney disease, stage 3a (principal) | CPT/HCPCS: 99212 ==

== ENCOUNTER 2024-09-10 10:09 | Outpatient (AMB) | payer MEDICARE, MEDICAID, SELFPAY ==
--- NOTE | 2024-09-10 10:12 | MHC.OFFVIS ---
Vital Signs 09/10/24 10:17 Height 5 ft 11 in Weight 331 lb 9.204 oz BMI 46.2 BP 142/62 H Blood Pressure Location Rt brachial Position Sitting Pulse 57 Pulse Source Pulse Oximeter Pulse Oximetry (%) 94 Oxygen Delivery Method Room Air Intake Visit Reasons: Crohn's arthritis Intake Note: [facility]. Allergies tramadol Allergy (Mild, Verified 09/10/24 10:16) Dizziness Medication List - Last Reconciled 09/10/24 by Marzena Martinez MD acetaminophen ER (Tylenol Arthritis Pain) 1,300 mg PO Q8H allopurinol 300 mg PO DAILY amlodipine 10 mg PO QAM apixaban (Eliquis) 5 mg PO BID ferrous sulfate 324 mg PO DAILY folic acid 1 mg PO DAILY furosemide 80 mg PO QAM insulin syringe,safety needle (BD SafetyGlide Insulin Syringe) USE ONCE WEEKLY TO INJECT METHOTREXATE losartan 100 mg PO QAM methotrexate sodium 60 mg subcut QWEEK multivitamin 1 tab PO DAILY pantoprazole 40 mg PO QAM qkesnxfi-niix-gooul-oreg-capry 100 mg-150 mg- 50 mg-150 mg 1 cap PO DAILY vedolizumab (Entyvio) 300 mg IV Q8W HPI Comments Details: Patient is a 69-year-old male with TIFFANY on CPAP, hypertension complicated by CKD, AFib on Eliquis, Crohn's disease on vedolizumab, crystal proven tophaceous gout and inflammatory arthritis associated inflammatory bowel disease here today for follow up Interval History: Patient last seen 04/25/[address] Balderrama. At that time he was following up for his IBD related arthritis and gout. He at that time was on subcutaneous methotrexate 20 mg weekly, folic acid 1 mg daily, allopurinol 400 mg daily and reported doing intermittently well with infrequent joint pains and aches. His allopurinol was increased to 500 mg daily as his uric acid was 5.9 and not at goal Saw his tobacco warehouse manager who was concerned about his kidney function and reduced his allopurinol to 300 his subsequent uric acid was 6.7 Has not had any flares of his gout since the last visit Continues to do well overall Rheumatologic History: Inflammatory arthritis associated with Crohn's disease Failed p.o. methotrexate. Doing well on subcu methotrexate for Crohn's failed Humira, did well on Entyvio Per Dr. Manuel: Presents for follow-up of initial testing. At last visit, patient received a prednisone taper which he states significantly helped his joint pain. He has now completed the prednisone and some of his joint pain has returned. From last visit: Patient is currently on Entyvio for his Crohns. He was previously treated with Humira however did not respond to therapy in terms of his bowel disease or his joint pain. He reports a few years of joint pain mostly located in his hands, feet, and neck. He has swelling located in his MCPs and PIPs as well as nodules by both elbows. Has stiffness in his hands and is unable to make fists. States that his feet feel like he is walking on glass. He was given a prednisone taper by his PCP which helped immensely with his pain and swelling. He was also given Sulfasalazine by Dr Taylor in GI and took it for a couple of weeks but states that it did not help his joint pain. Unable to take NSAIDs as he is on Eliquis for Afib. No family history of RA, SLE, Crohns, Psoriasis or Psoriatic Arthritis. Gout biopsy proven gouty tophi distal to both elbows. Mother had gout. Initial Uric acid level 12.9. Patient now on allopurinol 400 mg daily. Well-tolerated. Uric acid improved to 5.9 mg/dL Current Rheumatology Medication(s): Allopurinol 300 mg daily Methotrexate subcutaneous 20 mg weekly Folic acid 1 mg daily [facility] Medical History COVID-19 Claustrophobia Arthritis Atrial septal defect Atrial fibrillation Gouty tophi of joint Restrictive lung disease Cervical spondylosis Epidermal cyst Essential hypertension Chronic right heart failure Crohn's disease TIFFANY on CPAP Morbid obesity Surgical History Hx of carpal tunnel repair History of colon resection History of excision of epidermal inclusion cyst (~03/27/21) History of esophagogastroduodenoscopy (EGD) Status post surgical atrial septal defect closure History of colonoscopy Family History Father Hx of Crohn's disease Cancer Mother Hx of type 2 diabetes mellitus Social History Are you a primary manager career to a significant other at home: No Do you presently have visiting nurse or other home services: No Alcohol intake: never Comment: counts correct Patient Tobacco Use Status: Former Tobacco user Tobacco use type: Cigarette Years Smoked: 10 +/- Current occupational status: retired Current occupation: right hand dominant Review of Systems Const Details: Review of Systems Constitutional: Denies fever, chills, weight loss ENT: Denies vision changes, eye pain or eye redness, dental caries, dry mouth GI: Denies nausea, vomiting, diarrhea, abdominal pain, change in BM Pulm: Denies SOB, BYNUM, hemoptysis, wheezing Cards: Denies chest pain, palpitations Skin: Denies Raynaud's, rash, nail changes, photosensitivity, CUSTOMER SERVICE ASSOCIATE: Denies headaches, weakness, paresthesias, recurrent falls MSK: as per HPI All other systems reviewed and are unremarkable except noted above Physical Exam Vital Signs: Last Vital Signs Pulse 57 09/10/24 10:17 BP 142/62 H 09/10/24 10:17 Pulse Ox 94 09/10/24 10:17 Oxygen Delivery Method Room Air 09/10/24 10:17 BMI result Body Mass Index 46.2 Vital signs reviewed Physical Examination CONSTITUITIONAL Patient alert and cooperative. Well appearing and in no apparent painful distress MOrbidly obese HEENT Conjunctiva and sclera clear. ?Pupils equal round and reactive to light. ?No lymphadenopathy. ? CHEST/RESPIRATORY SYSTEM Normal respiratory effort and able to speak in complete sentences. ?Clear to auscultation bilaterally. ?No crackles, rales, rhonchi, wheezes heard. CARDIAC SYSTEM Regular rate and rhythm. ?S1 and S2 heard no murmurs. ?Radial pulses intact bilaterally MSK Hands: ?Unable to make a fist but no synovitis noted to the hands. [place] nodes Wrists: ?Full range of motion at the wrists without pain. ?No tenderness to palpation or synovitis noted to the wrists. Elbows: Full range of motion without pain. No tenderness, weakness, swelling, increased warmth or erythema. bilateral elbow tophi noted Shoulders: Full range of active range of motion without pain. No tenderness, weakness, swelling, increased warmth or erythema. Knees: ?Full range of motion. ?No tenderness, swelling, increased warmth or erythema.?No effusion or crepitations Ankles: Full range of motion. ?No tenderness, swelling, increased warmth or erythema.? Feet: ?Negative squeeze test. ?No tenderness to palpation or swelling of the MTPs. Tender points:?No tenderness to palpation of the bilateral trapezius, supraspinatus, greater trochanters, anterior costochondral junctions, bilateral gluteal areas, bilateral suboccipital muscle insertions SKIN Skin intact without rashes. Results Reviewed Results Reviewed: Laboratory Tests 04/10/24 07/26/24 10:07 09:03 WBC 4.1 L RBC 3.25 L Hgb 10.4 L Hct 31.1 L Plt Count 167 ESR 23 H Sodium 142 Potassium 4.2 Chloride 109 H Carbon Dioxide 24 BUN 35 H Creatinine 1.42 H AST 26 ALT 14 Alkaline Phosphatase 83 C-Reactive Protein 1.13 H 2.04 H Assessment & Plan Assessment & Plan (1) Arthritis associated with inflammatory bowel disease: Comment: Failed p.o. methotrexate. Doing well on subcu methotrexate for Crohn's failed Humira, did well on Entyvio Code(s): K63.9 - Disease of intestine, unspecified; M07.60 - Enteropathic arthropathies, unspecified site Category: Medical (2) Gouty tophi of joint: Code(s): M1A.9XX1 - Chronic gout, unspecified, with tophus (tophi) Category: Medical (3) rn long term care methotrexate user: Code(s): Z79.631 - penitentiary (current) use of antimetabolite agent Category: Medical Plan: #Long-term Current Use of Methotrexate Discussed with patient the benefits and risks of methotrexate for managing their rheumatic condition Benefits include reduced pain, reduced mortality, maintenance of remission and reduction of flares Risks include oral ulcers, photosensitivity, hepatotoxicity, hematologic toxicity, pneumonitis, flu-like symptoms (especially day after administration), nodulosis, lymphomas ? Limit alcohol and avoid Bactrim ? Monitoring: ?CBC, BMP, LFTs every 3-4 months and hepatitis serologies as needed (4) Encounter for monitoring allopurinol therapy: Code(s): Z51.81 - Encounter for therapeutic drug level monitoring; Z79.899 - Other long term care administrator (current) drug therapy Plan: #Long-term Current Use of Allopurinol Risks and benefits of allopurinol discussed with patient Benefits include decreased gout flares, remission of gout and reduction of tophi Risks include allopurinol hypersensitivity syndrome which is a severe cutaneous adverse reaction associated with allopurinol use particularly in patients who are HLA [id number]*5801 positive, increased transaminases, GI upset including diarrhea, nausea and vomiting, and other dermatologic manifestations Plan I spent 40 minutes reviewing the record and labs, taking a history, examining the patient, discussing the treatment plan, ordering diagnostic work up, reaching out to nephrology and documenting in the medical record Orders: Orders Complete Blood Count Auto Diff 6 Months K63.9 - Disease of intestine, unspecified, M07.60 - Enteropathic arthropathies, unspecified site, M1A.9XX1 - Chronic gout, unspecified, with tophus (tophi), Z51.81 - Encounter for therapeutic drug level monitoring, Z79.899 - Other long term care administrator (current) drug therapy Comprehensive Met. Panel 6 Months K63.9 - Disease of intestine, unspecified, M07.60 - Enteropathic arthropathies, unspecified site, M1A.9XX1 - Chronic gout, unspecified, with tophus (tophi), Z51.81 - Encounter for therapeutic drug level monitoring, Z79.899 - Other long term care administrator (current) drug therapy C Reactive Protein 6 Months K63.9 - Disease of intestine, unspecified, M07.60 - Enteropathic arthropathies, unspecified site, M1A.9XX1 - Chronic gout, unspecified, with tophus (tophi), Z51.81 - Encounter for therapeutic drug level monitoring, Z79.899 - Other [facility] (current) drug therapy Hepatitis A,B,C Profile 6 Months K63.9 - Disease of intestine, unspecified, M07.60 - Enteropathic arthropathies, unspecified site, M1A.9XX1 - Chronic gout, unspecified, with tophus (tophi), Z51.81 - Encounter for therapeutic drug level monitoring, Z79.899 - Other [facility] (current) drug therapy Erythrocyte Sedimentation Rate 6 Months K63.9 - Disease of intestine, unspecified, M07.60 - Enteropathic arthropathies, unspecified site, M1A.9XX1 - Chronic gout, unspecified, with tophus (tophi), Z51.81 - Encounter for therapeutic drug level monitoring, Z79.899 - Other [facility] (current) drug therapy Uric Acid 6 Months K63.9 - Disease of intestine, unspecified, M07.60 - Enteropathic arthropathies, unspecified site, M1A.9XX1 - Chronic gout, unspecified, with tophus (tophi), Z51.81 - Encounter for therapeutic drug level monitoring, Z79.899 - Other [facility] (current) drug therapy T Spot TB 6 Months K63.9 - Disease of intestine, unspecified, M07.60 - Enteropathic arthropathies, unspecified site, M1A.9XX1 - Chronic gout, unspecified, with tophus (tophi), Z51.81 - Encounter for therapeutic drug level monitoring, Z79.899 - Other long term care administrator (current) drug therapy Medications: Changed From allopurinol 300 mg PO DAILY 90 tabs 0RF M1A.9XX1 - Chronic gout, unspecified, with tophus (tophi) To allopurinol 300 mg PO BID 180 tabs 1RF M1A.9XX1 - Chronic gout, unspecified, with tophus (tophi) From methotrexate sodium 15 mg subcut QWEEK K63.9 - Disease of intestine, unspecified, M07.60 - Enteropathic arthropathies, unspecified site To methotrexate sodium 15 mg (0.6 mL) subcut QWEEK 90 days 10 mL 1RF K63.9 - Disease of intestine, unspecified, M07.60 - Enteropathic arthropathies, unspecified site From allopurinol 300 mg PO BID 180 tabs 1RF M1A.9XX1 - Chronic gout, unspecified, with tophus (tophi) To allopurinol 450 mg (1.5 x 300 mg) PO DAILY 90 days 135 tabs 1RF M1A.9XX1 - Chronic gout, unspecified, with tophus (tophi) Coding Level of Care Code Est Pt Level 5 (07260) Complex EM visit Add On G2211 Diagnoses Arthritis associated with inflammatory bowel disease K63.9; M07.60 Gouty tophi of joint M1A.9XX1 penitentiary methotrexate user Z79.631 Encounter for monitoring allopurinol therapy Z51.81; Z79.899
[2024-09-10 10:17] VITALS: BP 142/62; PULSE 57; O2SAT 94; BMI 46.2
--- OUTSIDE RECORDS SUMMARY | 2024-09-10 11:46 | XMS_ITS ---
Author Organization [facility] Address [address] [place] [id number] Care Team Providers Care Counselor/Art Therapist Name Role Phone Garry Graves MD Primary Care Provider Daisy George [phone] Encounters Encounter Location Date Provider Diagnosis [address] [phone] 08/30/2024 Daisy Silva Plan Of Treatment Next Appt Details Provider Name:Daisy collado, 09/12/2025 11:15:00 AM, [address] [place] [address], [phone], Progress Notes * SERA Hector KDOB:[birth year] (69 yo M)Acc No.[id number]:08/30/2024 Progress Note Patient:?Hector ZAMORA Provider:?Daisy Silva DPM :[id number]???Age:69 Y???Sex:Male Narciso e:08/30/2024 Address:[address] [facility] [address] [place] [id number] Pcp:Garry Graves MD Subjective: * Chief Complaints: * ??? * Medical History:? Objective: * Vitals:? Assessment: Plan: * Treatment: * Images: * The named appointment provid er may or may not be the originator of this progress note, and it is not deemed complete until electronically signed by the appointment provider. Sign off status: Pending * Provider:?Daisy Silva DPM Date:?0 08/30/2024 Generated for Capo raman/Davidson/Brenden on:?09/10/2024 11:46 AM EDT
--- OUTSIDE RECORDS SUMMARY | 2024-09-10 11:46 | XMS_ITS | Data Portability ---
Author Organization [facility] Address [address] [place] [address] Assessment Encounter Date Assessment Date Assessment LastModified by Organization Details LastModified Time 08/17/2023 08/17/2023 [id number] [place] [id number] (BE[employer]) MDM MODERATE MUST MEET 2 OUT OF [...] COVERED Not available 08/17/2023 11:35:12 10/19/2023 10/19/2023 [id number] [place] [id number] ([employer]) MDM HIGH MUST MEET 2 OUT OF [...] promote healthy living. Not available 02/08/2024 16:33:32 08/13/2024 08/13/20[place] [id number] [place] [id number] ([employer]) : MDM LOW MUST MEET 2 OF 3 ELEMENTS: PROBLEMS, DATA OR RISK ELEMENT 1: PROBLEMS ADDRESSED (LOW): 2 OR MORE SELF-LIMITED OR MINOR PROBLEMS OR 1 STABLE CHRONIC ILLNESS OR 1 ACUTE UNCOMPLICATED ILLNESS OR INJURY ELEMENT 2: DATA TO BE REVISED AND ANALYZED (LOW) MUST MEET 1 OF 2 CATEGORIES: CATEGORY 1. REVIEW OF PRIOR EXTERNAL NOTES/RESULTS, ORDERING OF TEST(S) CATEGORY 2. ASSESSMENT REQUIRING INDEPENDENT HISTORIAN(S) INCLUDE WHO THE HISTORIAN IS AND RELATION TO PT AND WHY PT IS UNABLE TO GIVE COMPLETE HISTORY ELEMENT 3: RISK (LOW) RISK OF COMPLICATIONS AND/OR MORBIDITY OR MORTALITY OF PATIENT MANAGEMENT PROVIDER MUST THOROUGHLY DOCUMENT ALL OF THE ELEMENTS COVERED Not available 08/13/2024 15:27:20 Plan of Treatment Reminders Order Date Submit Date Provider Last Modified By Organization Details Last Modified Time Details Appointments ANNUAL EXAM 2024 11:00A M DR VALDEZ Not available Not available Not available Lab None recorded. Referral None recorded. Procedures None recorded. Surgeries None recorded. Imaging None recorded. Medication Orders amoxicill in 875 mg-potass ium clavulana te 125 mg tablet 2023 024 [email or web address] [id number], [address] [facility], [place], [place], [id number], 10/19/2023 13:55:23 Patient TargetsNo targets recorded. Patient Instructions Encounter Date Encounter Id Patient Instructions Last Modified By Organization Details Last Modified Time 08/17/2023 [id number] pulse oximetry* Not available 08/17/2023 11:13:27 10/19/2023 [id number] When You Want to Lose Weight: Care Instructions Not available 10/19/2023 14:23:11 crohn's disease: care instructions Not available 10/19/2023 14:23:11 heart failure: care instructions Not available 10/19/2023 14:23:11 learning about heart failure Not available 10/19/2023 14:23:11 02/08/2024 [id number] pulse oximetry* Not available 02/09/2024 23:02:02 sleep apnea: car e instructions Not available 02/09/2024 23:02:02 08/13/2024 [id number] medicines to avoid with kidney disease: care instructions Not available 08/13/2024 15:28:39 Reason for Referral None Reported. Results Created Date Observation Date Name Description Value Unit Range Abnormal Flag Note LastModifiedBy Organization Detail LastModifiedTime 08/17/19 24 08/17/2023 pulse oxime try* Result 97 Not Available [facility] [address] [facility], [place], [address], 08/15/2023 14:00:34 02/08/20 24 02/08/2024 pulse oxime try* Result 97 Not Available [facility] [address] [facility], [place], [address], 02/06/2024 12:00:52 06/28/19 24 06/24/2023 , echo ardio gram No observ ation record ed. [facility] [address], [place], [address], 08/17/2023 10:58:21 Result Notes None recorded. Problems Name Problem SNOMED Code Status Onset Date Resolution Date Notes Provider Name and Address Organization Details Recorded Time Crohn's disease 47988060 Active 2019 Garry Valdez DO [address] [facility], [place], [address], [place] [facility] 11:51:44 Degenerati on of lumbar interverte bral disc 34236305 Active 2020 Garry RussellRory Maribelalexander, DO [address] [place] [address], [address], [facility] 1 10:47:53 Osteoarthr itis 659002859 Active 2021 Garry Lópezalexander DO [address] [place] [address], [address], [facility] 2 15:14:41 Osteoarthr itis of joint of hand 34388646 Active 2022 SAI PIERCE [address] [place] [address], [phone], [facility] 3 15:28:27 COVID-19 824444409 Active 2023 Garry RussellRory Valdez DO [address] [place] [address], [phone], [facility] 4 13:31:54 Chronic tophaceous gout 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 Active 2023 Garry YvonneRory Valdez, DO [address] [place] [address], [address], [facility] 4 11:11:39 Acute right otitis media 934291602 Active 2023 Garry YvonneRory Valdez, DO [address] [place] [address], [address], [facility] 4 11:34:54 Psoriatic arthritis 634296380 Active 2023 Garry Valdez DO [address] [place] [address], [address], [facility] 4 14:16:12 Chronic kidney disease stage 3 638260093 Active 2024 Garry Valdez [address], [address], [facility] 5 15:28:23 Morbid obesity 969470609 [facility] 8 08:45:56 Congestive heart failure 06438377 Active 2017 Suasn Florez jenifer [facility] 8 08:45:59 Obstructiv e sleep apnea syndrome 89440850 Active 2017 Susan Florez jenifer [facility] 8 08:46:05 Hypertensi ve disorder 85214856 Active 2017 Susan Florez jenifer [facility] 8 08:46:10 Problem Notes None recorded. Procedures Surgical History Date Name Laterality Status Provider Name and Address Organization Details Recorded Time 019 Corticosteroid Injection completed Garry Valdez DO [address] [place] [address], [address], [facility] 01/08/2019 10:11:59 Imaging Results Imaging Date Name Status LastModified by Organization Details LastModified Time 06/24/2023 , echocardiogram completed [address], [place], [address], 08/17/2023 10:58:21 Procedure Notes None recorded. Medical Equipment None Reported. Allergies Allergen ID Allergen Name Allergen Category Reaction Reaction Severity Criticality Documentation Date Start Date Code Code System Note Provider Name and Address Organization Details Recorded Time 3160 meloxicam medicatio n diarrhea severe Not available 11/20/20182018 81916 RxNorm Garry Valdez DO [address] [place], [address], [place] [facility] 9 17:32:39 4698 tramadol medicatio n dizziness moderate Not available 01/06/2021 72835 RxNorm SAI PIERCE [address] [place], [address], [facility] 1 11:05:59 Medications Name Sig Start Date Stop Date Status Note LastModified by Organization Details LastModified Time losartan 50 mg tablet TAKE 1 TABLET BY MOUTH DAILY 04/30 completed Not Available Not Available Not Available amoxicillin 500 mg capsule 11/20 completed Not Available Not Available Not Available furosemide 40 mg tablet TAKE 2 TABLETS BY MOUTH EVERY DAY active Not Available Not Available No t Available prednisone 10 mg tablet Take 1 tablet [...] methotrexat e sodium 25 mg/mL injection solution INJECT 0.6 ML UNDER THE SKIN ONCE WEEKLY active Not Available Not Available No t Available tramadol 50 mg tablet Take 1 tablet every 6 hours by oral route for 30 days. 01/06 completed Not Available Not Available Not Available amoxicillin 500 mg tablet TAKE 4 TABLETS BY MOUTH 1 HOUR PRIOR TO DENTAL PROCEDURE active Not Available Not Available No t Available vancomycin 125 mg capsule TAKE 1 [...] TAKE 1 TABLET BY MOUTH EVERY DAY active Not Available Not Available No t Available cephalexin 500 mg capsule TAKE 1 CAPSULE BY MOUTH EVERY 6 HOURS FOR 9 DAYS 04/20 completed Not Available Not Available Not Available pantoprazol e 40 mg tablet,bartolo yed release TAKE 1 TABLET BY MOUTH EVERY DAY active Not Available Not Available No t Available folic acid 1 mg tablet TAKE 1 TABLET BY MOUTH DAILY active Not Available Not Available No t Available allopurinol 300 mg tablet TAKE 1 TABLET BY MOUTH DAILY active Not Available Not Available No t Available budesonide DR - ER 3 mg [...] tablet TAKE 1 TABLET BY MOUTH EVERY MORNING active Not Available Not Available No t [...] TAKE 1 TABLET BY MOUTH TWICE DAILY active Not Available Not Available No t Available vedolizumab 300 mg intravenous solution Inject 300 [...] Updated DateTime 4 177.8 cm 45.3 kg/m2 644772. 19 g 67 /min 97 % 97 % 140 mm[Hg] 70 mm[Hg] Jeane Peralta [facility] 4 10:19:26 Date Recorded Body height Body mass index (BMI) Body weight Heart rate Oxygen saturation Oxygen saturation in Arterial blood by Pulse oximetry Systolic blood pressure Diastolic blood pressure Provider Name and Address Organization Details Last Updated DateTime 4 177.8 cm 44.9 kg/m2 960255. 41 g 55 /min 97 % 97 % 140 mm[Hg] 60 mm[Hg] [facility] 4 10:44:51 Date Recorded Body height Body mass index (BMI) Body weight Heart rate Respiratory rate Oxygen saturation Oxygen saturation in Arterial blood by Pulse oximetry Systolic blood pressure Diastolic blood pressure Provider Name and Address Organization Details Last Updated DateTime 4 177.8 cm 44.9 kg/m2 099886. 41 g 52 /min 18 /min 99 % 99 % 132 mm[Hg] 66 mm[Hg] João Joyner [facility] 4 13:57:16 Date Recorded Body height Body mass index (BMI) Body weight Heart rate Oxygen saturation Oxygen saturation in Arterial blood by Pulse oximetry Systolic blood pressure Diastolic blood pressure Systolic blood pressure Diastolic blood pressure Provider Name and Address Organization Details Last Updated DateTime 4 177.8 cm 44.9 kg/m2 834174. 41 g 54 /min 97 % 97 % 140 mm[Hg] 70 mm[Hg] 132 mm[Hg] 70 mm[Hg] [facility] 4 16:35:02 Social History Question Answer Notes LastModified by Organizat ion Details LastModified Time Tobacco Smoking Status Former Smoker Not Available [facility] 03/18/2020 03:36:24 What Was The Date Of Your Most Recent Tobacco Screening? 02/08/2024 [email or web address] Information not available 02/08/2024 Do You Or [...] pneumococcal polysaccharide PPV23 0 completed Nathalie Balicki null, [facility] 11/25/2020 11:26:53 COVID-19, mRNA, LNP-S, PF, 30 mcg/0.3 mL dose 1 completed Nathalie Balicki null, [facility] 11/25/2020 11:27:04 COVID-19, mRNA, LNP-S, PF, 30 mcg/0.3 mL dose 1 completed Nathalie Balicki null, [facility] 11/25/2020 11:27:11 Hep B, unspecified formulation 0 [facility]2020 11:27:24 Hep B, unspecified formulation 0 completed [facility] 11/25/2020 11:27:31 Hep B, unspecified formulation 1 completed [facility] 11/25/2020 11:27:37 Hep A, unspecified formulation 0 completed [facility] 11/25/2020 11:27:57 Hep A, unspecified formulation 0 completed [facility] 11/25/2020 11:28:04 Hep A, unspecified formulation 1 completed Nathalie Balicki [facility] 11/25/2020 11:28:12 COVID-19, mRNA, LNP-S, PF, 30 mcg/0.3 mL dose 1 [facility] 01/06/2021 09:14:20 Influenza, split virus, quadrivalent, preservative 1 [facility] 08/24/2021 10:36:11 Tdap 9 enmanuel burgess [facility] 01/17/2019 08:11:56 Past Encounters Encounter ID Performer Location Encounter Start Date Encounter Closed Date Diagnosis/Indication Diagnosis SNOMED-CT Code Diagnosis ICD10 Code Diagnosis Note [id number] Garry Valdez [facility] [address] [facility],[place] [address] 09/13/2017 10:56:44 09/13/2017 16:01:17 Hypertensive disorder 89416993 I10 bp stable cont same meds Congestive heart failure 89942800 I50.9 stable and without exacerbati ons is euvolemic Tenosynovi tis of wrist 742237496 M65.839 [id number] Garry Valdez DO [facility] [address] [facility],[place] [address] 01/25/2018 09:33:47 01/25/2018 10:14:56 Morbid obesity 140799308 E66.01 chronic illness and not working on it Hypertensive disorder 38 393156 I10 bp stable cont same meds Congestive heart failure 57114910 I50.9 stable and without exacerbati ons is euvolemic Obstructiv e sleep apnea syndrome 19894187 G47.33 stable and cont on [facility] cpap Screening for cardiovascular system disease 201336144 Z13.6 Edema of l ower extremity 751923061 R60.0 cont two tabs of lasix need to check K+ levels and creat [id number] Mary Jo Washington NP, [facility] Internal [facility] [address] [facility],[place] [address] 05/23/2018 10:33:27 05/23/2018 16:49:35 Morbid obesity 526771305 E66.01 Work on weight loss Acute bronchitis 0530557 2 J20.9 Hypertensive disorder 38 151166 I10 mildly elevated, keep scheduled july appt Obstructiv e sleep apnea syndrome 72504908 G47.33 compliant with CPAP [id number] Garry Valdez DO [facility] [address] [facility],[place] [address] 08/02/2018 08:56:16 08/02/2018 12:49:34 Obstructive sleep apnea syndrome 60295351 G47.33 stable and cont on jhsi cpap Hypertensive disorder 38 617440 I10 bp stable cont same meds Congestive heart failure 22192272 I50.9 stable and without exacerbati ons is euvolemic Morbid obesity 506894812 E66.01 chronic illness and not working on it Pain of samuel int of wrist 799836372 M25.539 recc refer he will consider appt with [place] nation [id number] Garry Valdez [facility] [address] [facility],[place] [address] 11/20/2018 16:16:38 11/20/2018 17:38:10 Adverse reaction to drug 70630672 T50.905A severe GI response to daily use of meloxicam that was orderd by specialist will need to take probiotics culturelle Hypertensive disorder 38 969608 I10 bp stable cont same meds Congestive heart failure 81813708 I50.9 stable and without exacerbati ons is euvolemic [id number] August IKE Hernandez [facility] [address] [facility],[place] [address] 12/27/2018 10:47:48 12/27/2018 13:47:31 Body mass index 40+ - severely obese 276628174 Z68.42 Hypertensive disorder 38 680263 I10 stable Obstructiv e sleep apnea syndrome 71721982 G47.33 uses cpap every night Knee pain 75396800 M25.5 69 right lateral knee pain OA vs tendinitis mendieta consider PT in future [id number] Garry Valdez [facility] [address] [facility], [place] [address] 01/08/2019 09:49:46 01/08/2019 10:20:43 Osteoarthritis of knee 314008948 M17.9 [place] [id number] Garry Valdez [facility] [address] [facility],[place] [address] 02/07/2019 08:53:44 02/07/2019 10:48:03 Hypertensive disorder 30229102 I10 bp stable cont same meds Congestive heart failure 78600409 I50.9 stable and without exacerbati ons is euvolemic echo is done recently and is excellent per verbal report Chronic diarrhea 9159848 09 K52.9 major lab done GI f/u andwill have colonosc next nov Morbid obesity 151304560 E66.01 with the diarrhea he [place] been losing wgt [id number] Garry Valdez [facility] [address] [facility] [address],[place] [address] 05/07/2019 10:23:47 05/07/2019 10:53:59 Hypertensive disorder 75956997 I10 bp stable cont same meds Congestive heart failure 76527722 I50.9 stable and without exacerbati ons is euvolemic echo is done recently and is excellent per report Obstructiv e sleep apnea syndrome 86952894 G47.33 stable and cont on jhsi cpap Diarrhea 42586109 R19.7 None since colonoscop y Crohn's disease 39545215 K50.90 Biopsy/abd CT of GI showed low grade inflammati on suggestive of Crohn's Seeing GI in one week Daughter has Crohn's [id number] Garry Valdez [facility] [address] [facility] [address], [place] [facility] [address] 08/17/2019 09:29:29 08/17/2019 12:16:51 Congestive heart failure 83817675 I50.9 stable and without exacerbati ons is euvolemic echo is done recently and is excellent per report Hypertensive disorder 38 415466 I10 bp stable cont same meds Obstructiv e sleep apnea syndrome 33688476 G47.33 stable and cont on jhsi cpap Microcytic anemia 557468 007 D50.9 will be needing to take iron tab will use wifes MVI wish to get iron studies but he wont go out to get lab [id number] Garry Valdez [facility] [address] [facility] [address],[place] [address] 12/07/2019 08:58:03 12/07/2019 11:52:09 Congestive heart failure 79430763 I50.9 stable and without exacerbati ons is euvolemic echo is done recently and is excellent per report needs to renew his lasix no leg swelling Crohn's disease 01981945 K50.90 Biopsy/abd CT of GI showed low grade inflammati on suggestive of Crohn's Seeing GI in one week Daughter has Crohn's Hypertensive disorder 38 969611 I10 bp stable cont same meds Obstructiv e sleep apnea syndrome 47871197 G47.33 stable and cont on jhsi cpap [id number] Garry Valdez, [facility] [address] [facility] [address], [place] [address] 04/28/2020 08:45:16 04/28/2020 10:57:40 Congestive heart failure 09987547 I50.9 stable and without exacerbati ons is euvolemic echo is done recently and is excellent per report needs to renew his lasix no leg swelling Hypertensive disorder 38 357713 I10 bp stable cont same meds Obstructiv e sleep apnea syndrome 67149845 G47.33 stable and cont on his cpap Morbid obesity 006801366 E66.01 long discussion re prob with his eating states is at 334 Crohn's disease 05758423 K50.90 seen by GI and has been started on HUmira pt is feeling better and will be seeing GI appt in may Garry Valdez [facility] [address] [facility], [place] [address] 11/28/2020 11:06:02 11/28/2020 12:11:18 Hypertensive disorder 54854251 I10 bp stable cont same meds Congestive heart failure 96746770 I50.9 stable and without exacerbati ons is euvolemic echo is done recently and is excellent per report needs to renew his lasix no leg swelling Obstructiv e sleep apnea syndrome 35014132 G47.33 stable and cont on his cpap Hepatitis C screening 41 3074372 Z11.59 Morbid obesity 731300472 E66.01 long discussion re prob with his eating states is at 302 with the weight loss from the crohns Crohn's disease 79456736 K50.90 seen by GI and has been started on Entyvil IV infusion regimen pt is feeling better and will be seeing GI appt 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 3239112408 106 K50.018 we will have him see a rheumatolo gist [id number] SAI PIERCE [facility] [address] [facility] [address],[place] [facility] [address] 12/10/2020 09:52:05 12/10/2020 11:56:49 Neck pain 30288921 M54.2 will start on msk relaxer and tramadolfu with XR Torticollis 80433895 M43 .6 fu with MSK relaxer [id number] SAI PIERCE [facility] [address] [facility] [address],[place] [address] 01/06/2021 09:05:10 01/06/2021 12:01:51 Epidermoid cyst of skin 127466013 L72.3 will fu with general surgeon for removal Degenerati on of cervical intervertebral disc 45211284 M50.30 will fu with PVSS [id number] SAI PIERCE [facility] [address] [facility] [address],[place] [address] 03/16/2021 11:22:42 03/16/2021 12:41:23 Low back pain 738147640 M54.59 will fu with XR to start on his low back Abnormal gait 88080398 R 26.9 will fu with order for stand up walker Bursitis o f olecranon of right elbow 4506633953 20118 M70[address] Bhardwaj about the pred taper [id number] Garry Valdez DO [facility] [address] [facility],[place] [address] 04/20/2021 10:25:43 04/20/2021 12:42:30 Hypertensive disorder 80401172 I10 bp stable cont same meds Congestive heart failure 35837558 I50.9 stable and without exacerbati ons is euvolemic echo is done recently and is excellent per report needs to renew his lasix no leg swelling Obstructiv e sleep apnea syndrome 49980085 G47.33 stable and cont on his cpap Crohn's disease 34819532 K50.90 seen by GI and has been started on Entyvil IV infusion regimen pt is feeling better and will be seeing GI appt Degenerati on of lumbar intervertebral disc 80540846 M51.36 Hearing loss 96566728 H9 0.3 will need audiogram 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 5079173540 105 M48.02 following sports med and undergoing PT will follow and obtain an emg nct if worsening as the [place] [id number] Garry Valdez DO [facility] [address] [facility] [address],[place] [address] 08/24/2021 10:25:17 08/24/2021 11:40:12 Hypertensive disorder 53499950 I10 bp stable cont same meds Congestive heart failure 81727396 I50.9 stable and without exacerbati ons is euvolemic echo is done recently and is excellent per report needs to renew his lasix no leg swelling Morbid obesity 965523259 E66.01 long discussion re prob with his eating states is at 322 \told him this will lower his life expectancy s Crohn's disease 41867614 K50.90 seen by GI and has been started on Entyvil IV infusion regimen pt is feeling better and will be seeing GI appt [id number] Garry Valdez DO [facility] [address] [facility], [place] [address] 12/11/2021 14:47:03 12/11/2021 16:18:04 Hypertensive disorder 11719366 I10 bp stable cont same meds Depression screening 171 125400 Z13.31 negative PHQ2 screening at today's visit Crohn's disease 20636511 K50.90 seen by GI and= is on methotrexa te sq injection pt is feeling better and will be seeing GI appt Congestive heart failure 42971684 I50.9 stable and without exacerbati ons is euvolemic echo is done recently and is excellent per report needs to renew his lasix no leg swelling Osteoarthritis 890380893 M19.90 he is still struggling with the arthralgia [id number] Garry Valedz DO [facility] [address] [facility],[place] [address] 04/30/2022 10:54:24 04/30/2022 15:17:59 Congestive heart failure 31527826 I50.9 stable and without exacerbati ons is euvolemic echo is done recently and is excellent per report needs to renew his lasix no leg swelling Hypertensive disorder 38 025113 I10 bp stable cont same meds Osteoarthritis 871342067 M19.90 he is still struggling with the arthralgia encouraged to walk Obstructiv e sleep apnea syndrome 69340383 G47.33 stable and cont on his cpap but wondering about a new device for the chest??? [id number] Garry Valdez DO [facility] [address] [facility],[place] [address] 11/26/2022 10:17:44 11/26/2022 11:32:27 Congestive heart failure 88931190 I50.9 stable and without exacerbati ons is euvolemic echo is done recently and is excellent per report needs to renew his lasix no leg swelling Hypertensive disorder 38 854967 I10 bp stable cont same meds Morbid obesity 868008608 E66.01 he has lost 8 lbs Crohn's disease 78938091 K50.90 seen by GI and= is on methotrexa te sq injection pt is feeling better and will be following GI appt [id number] CARMELINA URBANO [facility] Internal [facility] [address] [facility], its[place]a [place] [facility] [place] [address] 06/06/2023 10:12:51 06/06/2023 10:41:44 Morbid obesity 190905974 E66.01 stable Hypertensive disorder 38 823871 I10 cleared by cardiology Obstructiv e sleep apnea syndrome 30946702 G47.33 stable, no changes Congestive heart failure 07167596 I50.89 stable per cardiology Pre-surger y evaluation [id number] Z01.818 The patient was seen in the office today for pre-op evaluation . All medical conditions on patient's problem list were addressed and are currently stable, no interventi on needed at this time. Based on history and physical performed, the patient is cleared for surgery. [id number] Garry Valdez [facility] [address] [facility],[place] [address] 08/17/2023 10:37:50 08/17/2023 11:36:58 Crohn's disease 72057282 K50.90 seen by GI and= is on methotrexa te sq injection pt is feeling better and will be following GI appt Congestive heart failure 76102103 I50.89 stable and without exacerbati ons his recent cardiac work up was ecellent including echo and heart cath is euvolemic needs to renew his lasix no leg swelling Hypertensive disorder 38 043535 I10 bp stable cont same meds Morbid obesity 432655850 E66.01 no further wgt loss Chronic to phaceous gout [id number] M1A.9XX1 Acute righ t otitis media 402548219 H66.91 [id number] Garry Valdez [facility] [address] [facility] [address] [address] 10/19/2023 13:46:51 10/19/2023 14:34:25 Acute right otitis media 671041798 H66.91 has now resolved discussed in depth how TM can get infected Depression screening 171 009018 Z13.31 negative PHQ2 screening at today's visit Hypertensive disorder 38 135296 I10 bp stable cont same meds Degenerati on of lumbar intervertebral disc 90953103 M51.36 still about the same but he is manging Congestive heart failure 01163045 I50.89 stable and without exacerbati ons his recent cardiac work up was ecellent including echo and heart cath is euvolemic needs to renew his lasix no leg swelling Morbid obesity 040235115 E66.01 no further wgt loss Psoriatic arthritis 1563 99793 L40.50 having a hard time getting this controlled hurts to walk any distancedo es have a handicap platehas been on MTX for this Crohn's disease 88716993 K50.90 seen by GI and= is on methotrexa te sq injection an stable with Entyvio pt is feeling better and will be following GI appt [id number] Garry Valdez [facility] [address] [facility],[place] [address] 02/08/2024 16:03:32 02/10/2024 08:57:21 Congestive heart failure 51134045 I50.89 stable and without exacerbati ons his recent cardiac work up was ecellent including echo and heart cath is euvolemic needs to renew his lasix no leg swelling Psoriatic arthritis 1563 60208 L40.50 having a hard time getting this controlled hurts to walk any distancedo es have a handicap platehas been on MTX for this Obstructiv e sleep apnea syndrome 16425423 G47.33 stable and cont on his cpap but wondering about a new device for the chest??? [id number] Garry Valdez [facility] [address] [facility] [address],[place] [address] 08/13/2024 08:38:51 08/13/2024 15:39:07 Congestive heart failure 29897337 I50.89 stable and without exacerbati ons his recent cardiac work up was ecellent including echo and heart cath is euvolemic needs to renew his lasix no leg swelling Hypertensive disorder 38 507648 I10 bp stable cont same meds Crohn's disease 38208323 K50.90 seen by GI and= is on methotrexa te sq injection an stable with Entyvio pt is feeling better and will be following GI appt Depression screening 171 029399 Z13.31 negative PHQ2 screening at today's visit Chronic ki dney disease stage 3 303541644 N18.30 followed by renal and doing very well no new issues Health Concerns Section Related Observation LastModified by Organization Detai ls LastModified Time None Recorded Concern Status LastModified by Organization Details LastModified Time None Recorded Advance Directives Directive None Recorded Payers Encounter Date Sequence Insurance Name Policy Number Policy Damon Covered Member ID Damon Member ID Guarantor Name 06/06/2023 2 [place] Hector Perezonte [id number] [facility] 06/06/2023 1 [place] [employer] [employer] Hector Hernández Isaiah [id number] [facility] 08/17/2023 2 [place] Hector Perezonte [id number] [facility] 08/17/2023 1 [place] [employer] Hector Hernández Isaiah [id number] [facility] 10/19/2023 2 [place] Hector Perezonte [id number] [facility] 10/19/2023 1 [place] [employer] Hector Hernández Isaiah [id number] [facility] 02/08/2024 2 [place] Hector Perezonte [id number] [facility] 02/08/2024 1 [place] [employer] Hector Hernández Isaiah [id number] Hector Isaiah 08/13/2024 2 [place] Hector Colon [id number] Hector Colon 08/13/2024 1 [place] [facility] Hector Colon [id number] Hector Colon Notes Date Note Type Note Provider Name and Address Organization Details Recorded Time 4 text/htm l Pre-OpReported bypatient.Surgery to be Performed:carpal tunnel surgery (bilaterally) and both elbows (biopsy) with Dr. 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 boat crewman and credit negotiator SAI PIERCE [address] [place], [address], [facility] 06/06/2023 10:36:13 4 [...] should be restarted Garry Valdez DO [address] [facility], [place], [address], [facility] 08/17/2023 11:35:26 4 [...] controlled no bleeding Garry Valdez DO [address] [place], [address], [facility] 10/19/2023 14:23:32 4 text/htm l here for rechk and is doing jessica MTX and recent lab shows ongoing anemia creat is still ok overallarhtritis is bothering himcrohns is quiet ]'gout has been the issue uric acid is 7.2 Garry Valdez DO [address] [place], [address], [facility] 02/09/2024 23:02:06 5 text/htm l Care Management - Congestive Heart Failure (CHF)Reported bypatient.Self Care:not under emotional stress; no recent hospitalization Severity:symptoms are improving; does not interfere with daily activities Associated Symptoms:no chest pain; normal heartbeat; no chest tightness; no constant coughing; no blood from coughs; no shortness of breath; no fatigue; no limb swelling; no abdominal swelling; no appetite lossCare Management - HypertensionReported bypatient.Self Care:not under emotional stress Severity:symptoms are improving; does not interfere with daily activities Associated Symptoms:no dizziness; no lightheadedness; no chest pain; no shortness of breath; no palpitations; no edema; no calf muscle cramps; no blurred vision; no confusion; no headaches; no fatigue patient is evaluated via tele/video assessment per patient consent during current pandemic having a good visit with renaland is doing well no change in meds Garry Valdez DO [address] [place], [address], [facility] 08/13/2024 15:28:54
--- OUTSIDE RECORDS SUMMARY | 2024-09-10 11:46 | XMS_ITS ---
Author Organization [facility] Address [address] [place] [address] Care Team Providers Care Poultry Tender Name Role Phone Garry Graves MD Primary Care Provider Daisy George Unavailable [phone] Solomon Ventura [phone] Encounters Encounter Location Date Provider Diagnosis [address] [address] 08/30/2024 Solomon Ventura Plan Of Treatment Next Appt Details Provider Name:Daisy collado, 09/12/2025 11:15:00 AM, [address] [place] [address], [phone], Progress Notes * Hector COLON KDOB:[birth year] (69 yo M)Acc No.[id number]:08/30/2024 Progress Note Patient:?SERA Hector Hernández Provider:?Solomon Ventura DPM :1955???Age:69 Y???Sex:Male Narciso e:08/30/2024 Address:[address] [place] [id number] Pcp:Garry Graves MD Subjective: * Chief Complaints: * ??? * Medical History:? Objective: * Vitals:? Assessment: Plan: * Treatment: * Images: * The named appointment provid er may or may not be the originator of this progress note, and it is not deemed complete until electronically signed by the appointment provider. Sign off status: Pending * Provider:Beni Ventura DPM Date:? 025 Generated for Capo raman/Davidson/Brenden on:?09/10/2024 11:45 AM EDT
--- OUTSIDE RECORDS SUMMARY | 2024-09-10 11:46 | XMS_ITS ---
[facility] Organization [facility] Address [address] [place] [address] Care Team Providers Care Stringed Instrument Assembler Name Role Phone Garry Graves MD Primary Care Provider Daisy George Unavailable [phone] Allergies Allergen (clinical drug ingredient) Drug/Non Drug Allergy documented on EMR Reaction Allergy Type Onset Date Status tramadol Tramadol Dizzy Drug Allergy Active REASON FOR VISIT Foot pain Medications Medication SIG (Take, Route, Frequency, Duration) Notes Start Date End Date Status Tylenol PRN Active Vitamin D Active Vedolizumab 300 MG as directed Intravenous Every 8 weeks Active zzzASO Ankle/Foot Stabilizing AFO . As directed Wear Daily for as needed 07/17/2015 Not-Taking Custom Orthotics as directed 09/29/2023 Active Pantoprazole Sodium 40 MG 1 tablet Orally Once a day for 30 day(s) Active Methotrexate Active tiZANidine HCl 4 MG TAKE 1 TABLET BY MOUTH EVERY 6 HOURS NEEDED Diagnosis Unavailable Oral for 15 Not-Taking Mens 50+ Multi Vitamin/Min Active Losartan Potassium 100 MG 1 tablet Orally Once a day for 90 days Active iron Active Folic Acid 1 MG 1 tablet Orally Once a day Active Eliquis 5 MG Orally twice daily Active Humira Pen Active Furosemide 40 MG 2 tablet Orally Once a day Active Allopurinol 100 MG as directed Orally 2 daily morning Active Orthopedic Extra Depth Shoes With Custom Heat Molded Multidensity Innersoles as directed Wear Daily for as needed Active amLODIPine Besylate 10 MG Orally Once a day Active Turmeric Active Aleve Not-Taking Budesonide 3 MG 2 capsules Orally Once a day for 30 day(s) Not-Taking Social History Tobacco Use: Social History Observation Description Date Details (start date - stop date) Never Smoker NA - NA Tobacco use other than smoking: Question Answer Notes Are you an other tobacco user? No Tobacco Control (Standard) Question Answer Notes Tobacco use: Nonsmoker Additional Findings: Tobacco non-user Current no nsmoker AUDIT-C (Standard) Question Answer Notes Did you have a drink containing alcohol in the p ast year? No Points 0 Interpretation Negative Problems Problem Type SNOMED Code ICD Code Onset Dates Problem Status W/U Status Risk Notes Problem Osteoarthritis of midtarsal joint of left foot (4542999826885197 ) Osteoarthritis of midtarsal joint of left foot (M19.072) Active confirmed Problem Osteoarthritis of midtarsal joint of right foot (3162037954346391 ) 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 Vital Signs Height 5 ft 11 in in 09/10/2024 Weight 327 lbs 09/10/2024 BMI 45.6 kg/m2 09/10/2024 Blood pressure systolic 130 mm Hg 09/11/19 25 Blood pressure diastolic 70 mm Hg 025 Encounters Encounter Location Date Provider Diagnosis [facility] [place] [address] [place] [address] 09/10/2024 Daisy Silva Pain in left foot M79.672 ; Pain in left ankle and joints of left foot M25.572 ; Bursitis of left foot M77.52 ; Osteoarthritis of midtarsal joint of left foot M19.072 ; Pain in right foot M79.671 ; Pain in right ankle and joints of right foot M25.571 ; Bursitis of right foot M77.51 and Osteoarthritis of midtarsal joint of right foot M19.071 Assessments Encounter Date Diagnosis (ICD Code) Assessment Notes Treatment Notes Treatment Clinical Notes Section Notes 09/10/2024 Pain in left foot (ICD-10 - M79.672) 09/10/2024 Pain in left ankle and joints of left foot (ICD-10 - M25.572) 09/10/2024 Bursitis of left foot (ICD-10 - M77.52) 09/10/2024 Osteoarthritis of midtarsal joint of left foot (ICD-10 - M19.072) 09/10/2024 Pain in right foot (ICD-10 - M79.671) 09/10/2024 Pain in right ankle and joints of right foot (ICD-10 - M25.571) 09/10/2024 Bursitis of right foot (ICD-10 - M77.51) 09/10/2024 Osteoarthritis of midtarsal joint of right foot (ICD-10 - M19.071) Plan Of Treatment Next Appt Details Follow Up: 1 Year, Reason: Provider Name:Daisy collado, 09/12/2025 11:15:00 AM, [address] [place], [address], Progress Notes * Hector COLON KDOB:[birth year] (69 yo M)Acc No.[id number]:09/10/2024 Progress Note Patient:?SERAHector Edgar Provider:?Daisy Silva DPM :1955???Age:69 Y???Sex:Male Narciso e:09/10/2024 Address:[address] [place], [place] [id number] Pcp:Garry Graves MD Subjective: * Chief Complaints: * ???Foot pain * HPI: ???Foot Pain:?Nature:?aching , stiffness , swelling , throbbing.?Location:?Top , Midfoot, B/L.?Duration:?several years.?Course:?worse.?Treatments:?rest/alter normal daily activity, custom orthotics.? * ROS:?General/Constitutional:?Nausea?denies.?Vomiting?denies.?Hunger Thirst?denies.?Loss appetite?denies.?Chills?denies.?Fatigue?denies.?Fever?denies.?Night Sweats?denies.?Unexplained weight loss?denies.?Ophthalmologic:?Blurred [...] stic Procedure:?Denies Past Hospitalization * Family History:?Mother: audrey brar?Father: , diagnosed with Other malignant neoplasm of unspecified site.?Spouse: alive.? * Social History:?Tobacco Use:?Tobacco use other than smoking?Are you an other tobacco user??No ?Tobacco Control (Standard)?Tobacco use:?Nonsmoker ?Additional Findings: Tobacco non-user?Current nonsmoker ???Drugs/Alcohol:?Drugs?Have you used drugs other than those for medical reasons in the past 12 months??No ???Miscellaneous:?Caffeine: yes, frequency:, 1-2 cups per day. ?Children: yes, 2. ?Exercise: no. ?Marital status: . ?Occupation: Retired-[employer]. ???Drug/Alcohol:?AUDIT-C (Standard)?Did you have a drink containing alcohol in the past year??No ?Points?0 ?Interpretation?Negative * Medications:?TakingOrthopedi c Extra Depth Shoes With Custom Heat Molded Multidensity Innersoles as directed Wear Daily Allopurinol 100 MG Tablet as directed Orally , Notes to Pharmacist: 2 daily morningTurmeric amLODIPine Besylate 10 MG Tablet Orally Once a day Eliquis 5 MG Tablet Orally twice daily Folic Acid 1 MG Tablet 1 tablet Orally Once a day Furosemide 40 MG Tablet 2 tablet Orally Once a day Humira Pen iron Losartan Potassium 100 MG Tablet 1 tablet Orally Once a day Mens 50+ Multi Vitamin/Min Methotrexate Pantoprazole Sodium 40 MG Tablet Delayed Release 1 tablet Orally Once a day Tylenol , Notes to Pharmacist: PRNVedolizumab 300 MG Solution Reconstituted as directed Intravenous Every 8 weeks Vitamin D Custom Orthotics as directed Taking Orthopedic Extra Depth Shoes With Custom Heat Molded Multidensity Innersoles as directed Wear Daily Taking Allopurinol 100 MG Tablet as directed Orally , Notes to Pharmacist: 2 daily morningTaking Turmeric Taking amLODIPine Besylate 10 MG Tablet Orally Once a day Taking Eliquis 5 MG Tablet Orally twice daily Taking Folic Acid 1 MG Tablet 1 tablet Orally Once a day Taking Furosemide 40 MG Tablet 2 tablet Orally Once a day Taking Humira Pen Taking iron Taking Losartan Potassium 100 MG Tablet 1 tablet Orally Once a day Taking Mens 50+ Multi Vitamin/Min Taking Methotrexate Taking Pantoprazole Sodium 40 MG Tablet Delayed Release 1 tablet Orally Once a day Taking Tylenol , Notes to Pharmacist: PRNTaking Vedolizumab 300 MG Solution Reconstituted as directed Intravenous Every 8 weeks Taking Vitamin D Taking Custom Orthotics as directed Not-Taking/PRNtiZANidine HCl 4 MG Tablet TAKE 1 TABLET BY MOUTH EVERY 6 HOURS NEEDED Diagnosis Unavailable Oral zzzASO Ankle/Foot Stabilizing AFO . . As directed Wear Daily Budesonide 3 MG Capsule Delayed Release Particles 2 capsules Orally Once a day Aleve Medication List reviewed and reconciled with the patientNot-Taking/PRN tiZANidine HCl 4 MG Tablet TAKE 1 TABLET BY MOUTH EVERY 6 HOURS NEEDED Diagnosis Unavailable Oral Not-Taking/PRN zzzASO Ankle/Foot Stabilizing AFO . . As directed Wear Daily Not-Taking/PRN Budesonide 3 MG Capsule Delayed Release Particles 2 capsules Orally Once a day Not-Taking/PRN Aleve Medication List reviewed and reconciled with the patient * Allergies:?Tramadol: Dizzy - Side Effectsyes[Allergies Verified] Objective: * Vitals:?Ht:5 ft 11 in, Wt:32 7, BMI:45.6, Shoe size:11, BP:130/70mm Hg, Ht-cm: 180.34 cm, Wt-k.33 kg. * Examination: ???Orthopedic: ?FOOT MORPHOLOGY:? Prominent, painful 1st Met-Cuneiform joint with inflammation, B/L.?FOOTWEAR EVALUATION:?shoe gear properties exacerbate patients foot/toe deformity.?Neurological: ?SENSORY:?Neurological exam reveals intact sensorium, pain sensation normal, vibration sensation intact, pinprick sensation is normal in the lower extremities, Pt denies, anesthesia, burning, paresthesia, tingling, B/L.?TINEL'S COMPRESSION:? Negative, Medial dorsal cutaneous nerve distribution, Intermediate dorsal cutaneous nerve distribution, Deep peroneal nerve distribution, B/L.?General Examination: ?GENERAL APPEARANCE:?alert, well hydrated, in no distress , good attention to hygiene.?ORIENTED:?person,place, and time.?Vascular: ?DP PULSES (B):?1/4, B/L.?PT PULSES (B):?1/4, B/L.?CAPILLARY FILL TIME:?3 secs. per digit, b/l.?TROPHIC CONDITION-TEXTURE/ELASTICITY/TURGOR/HAIR GROWTH (B):?absent.?EDEMA (C):? 1/4, B/L, Feet, Ankle(s), Leg(s).?TELANGECTASIA:? moderate.?VARICOSITIES:? present, moderate, nonpainful, B/L.? Assessment: * Assessment: 1.?Pain in left ankle and samuel ints of left foot - M25.572???2.?Pain in left foot - M79.672 (Primary)???3.?Bursitis of left foot - M77.52???4.?Osteoarthritis of midtarsal joint of left foot - M19.072???Specify :Chronic problem, Worse (4)???5.?Pain in right foot - M79.671???6.?Pain in right ankle and joints of right foot - M25.571???7.?Bursitis of right foot - M77.51???8.?Osteoarthritis of midtarsal joint of right foot - M19.071???Specify :Chronic problem, Worse (4)??? Plan: * Treatment: * Procedure Codes:? * Preventive Medicine:? ??Counseling:?Discussion:?-14: Office or other outpatient visit for the evaluation and management of an established patient, which required a medically appropriate history and/or examination and MODERATE level of DECISION MAKING for: 1 OR MORE CHRONIC PROBLEM(S) THATS WORSENING, 2 STABLE CHRONIC PROBLEMS, A NEWLY DIAGNOSED PROBLEM WITH UNCERTAIN PROGNOSIS, AN ACUTE COMPLICATED INJURY WITH MULTIPLE TREATMENT OPTIONS, OR AN ACUTE PROBLEM WITH ACCOMPANYING SYSTEMIC SYMPTOMS, THAT POSE(S) A MODERATE RISK OF MORBIDITY. THIS CONDITION MAY ALSO INCLUDE RX DRUG MANAGEMENT, OR A DECISON FOR MINOR SURGERY. The visit on the day of the encounter encompassed interpreting the data and educating the patient [...] have encouraged the patient to call the office.?Arthritis:?The patient was counseled on the various etiologies for their Arthritis including genetic, history of injury or trauma, abnormal foot biomechanics leading to excessive joint wear, and use/overuse. We discussed the various treatment options from no treatment, to topical analgesics such as Biofreeze gel, Aspercream, Voltaren gel, Lidoderm patches, CBD oils, THC creams, and Custom-compounded topical cream preparations to natural oral products such as Glucosamine Sulfate/Chondroitin/MSM/Collegen to analgesic Tylenol, to anti-inflammatory medications such as Ibuprofen/Naproxen, and the use of oral steroids if needed. Cardiac, Kidney, and GI issues were discussed RE: potential complications of oral anti-inflammatories. We discussed several other treatment options consisting of accom shoes, supportive innersoles, AFO bracing/support, cortisone injection therapy, and surgical resection of the arthritic joint(s) or fusion reconstruction if necessary. We discussed the advantages and disadvantages of conservative (vs) surgical treamtents including pain relief, improved function/activities of daily life, return to exercise to failure, expense, systemic complications, infection, [id number]-ootugsm, prolongued postop course. Patient questions re: the various treatment options available, their successes and potential failures, and custodial effects were discussed and the answers were verbally confirmed understood.?Orthotics:?I explained to the patient the benefits of OT use. I explained that orthoses are medically necessary to decrease the foot pain through proper mechanical control, support of their foot.?P.R.I.C.E.:?The patient was counseled on the use of P.R.I.C.E. and NSAIDS (if well tolerated) to aid in the recovery from their painful condition.?Podiatric Surgery Counseling:?Surgical procedures to treat the patients foot problem were discussed. We reviewed the risks of the procedure (described below) vs not having the procedure (persistent pain, deformity, risk for skin ulceration/infection, loss of toe). We discussed the potential procedure complications including, but not limited to: pain, swelling, bleeding, scarring, numbness, infection, delayed/non healing, floppy/unstable/shorthened toe, recurrence, failure of the procedure, overcorrection leading to plantarflexed/downward positioned toe, recurrence, need for further surgery, as well as the possibility for loss of the toe itself. We discussed the use of IV/Local anesthesia, and the usual post-op course for healing. No guarentees were given. The patient verbally indicated a full understanding of the above conversation, and any other of their questions were answered to their satisfaction.?Shoe Gear Counseling:?The patient and I reviewed the types of shoes they should be wearing. My recommendation included obtaining a well-fitted shoe with a good supportive, non-foldable nor twistable sole, plenty of toe/room for the forefoot, and proper arch support. Based on todays examination, I recommended the patient look for new shoes, by having their feet professionally measured. We discussed that generally the best time of the day for a shoe fitting is the afternoon. Different shoes types and brands to best match the patients occupation and vocation were discussed. Specific brand selection will be up to the patient, their individual foot condition/deformities, and fit. The patient and I reviewed the standard new shoe break in period by wearing them for a few hours a day while checking for redness or sores as wear time is increased. The patient verbally confirmed to understanding the information discussed.? ??Screening/Special Tests:?Fall Risk?Screening:?No falls in the past year ?FALLS: Screening for Future Fall Risk?Have you had any falls with injury in the past year??No * Follow Up:?1 Year * Images: * Sign off status: Completed true * Provider:?Daisy Silva DPM Date:?0 09/10/2024 Generated for Capo raman/Davidson/eTtad on:?09/10/2024 11:46 AM EDT History and Physical Notes * HPI (History of Present Illness) Category Sub-Category Detail Notes Category Not es Foot Pain Nature: aching , stiffness , swellin g , throbbing Location: Top , Midfoot, B/L Duration: several years Course: worse Treatments: rest/alter normal da cholo activity, custom orthotics Examination Category Sub-Category Detail Notes Category Not es Neurological SENSORY: Neurological exa m reveals intact sensorium, pain sensation normal, vibration sensation intact, pinprick sensation is normal in the lower extremities, Pt denies, anesthesia, burning, paresthesia, tingling, B/L TINEL'S COMPRESSION: Negative, Medial do rsal cutaneous nerve distribution, Intermediate dorsal cutaneous nerve distribution, Deep peroneal nerve distribution, B/L Orthopedic FOOT MORPHOLOGY: Prominent, pain ful 1st Met-Cuneiform joint with inflammation, B/L FOOTWEAR EVALUATION: shoe gear propertie s exacerbate patients foot/toe deformity General Examination GENERAL APPEARANCE: alert, w ell hydrated, in no distress , good attention to hygiene ORIENTED: person,place, and ti me Vascular DP PULSES (B): 4, B/L PT PULSES (B): 05/19, B/L CAPILLARY FILL TIME: 3 secs. per digit, b/l TROPHIC CONDITION-TEXTURE/EL ASTICITY/TURGOR/HAIR GROWTH (B): absent EDEMA (C): 4, B/L, Feet, Ankl e(s), Leg(s) TELANGECTASIA: moderate VARICOSITIES: present, moderate, n onpainful, B/L
--- OUTSIDE RECORDS SUMMARY | 2024-09-10 11:47 | XMS_ITS | Patient Health Record ---
Author Organization [facility] [place] Address [address] [place] [address] Care Team Providers Care Aws Architect Name Role Phone Garry Graves MD Primary Care Provider Daisy George Unavailable [phone] VenturaJuvencioSolomon Unavailable [phone] Allergies Allergen (clinical drug ingredient) Drug/Non Drug Allergy documented on EMR Reaction Allergy Type Onset Date Status tramadol Tramadol Dizzy Drug Allergy Active Reason For Referral No Information Medications Medication SIG (Take, Route, Frequency, Duration) Notes Start Date End Date Status Allopurinol 100 MG as directed Orally 2 daily morning Active Pantoprazole Sodium 40 MG 1 tablet Orally Once a day for 30 day(s) Active Orthopedic Extra Depth Shoes With Custom Heat Molded Multidensity Innersoles as directed Wear Daily for as needed Active Methotrexate Active amLODIPine Besylate 10 MG Orally Once a day Active Tylenol PRN Active Turmeric Active tiZANidine HCl 4 MG TAKE 1 TABLET BY MOUTH EVERY 6 HOURS NEEDED Diagnosis Unavailable Oral for 15 Not-Taking Budesonide 3 MG 2 capsules Orally Once a day for 30 day(s) Not-Taking Mens 50+ Multi Vitamin/Min Active Losartan Potassium 100 MG 1 tablet Orally Once a day for 90 days Active Aleve Not-Taking iron Active Folic Acid 1 MG 1 tablet Orally Once a day Active Vitamin D Active Eliquis 5 MG Orally twice daily Active Vedolizumab 300 MG as directed Intravenous Every 8 weeks Active Humira Pen Active zzzASO Ankle/Foot Stabilizing AFO . As directed Wear Daily for as needed 07/17/2015 Not-Taking Furosemide 40 MG 2 tablet Orally Once a day Active Custom Orthotics as directed 09/29/2023 Active Immunizations Vaccine Route Administration Date Status Commsandrita nts COVID-19 Pfizer BioNTech Vaccine Unknown 12/30/2020 [...] primary osteoarthritis of the ankle and/or foot (869343332) Primary osteoarthritis, left ankle and foot (M19.072) Active confirmed Problem Plantar fascial fibromatosis (05908316) Plantar 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) Active confirmed Problem Acquired hammer toe of right foot (8689934120044049 ) Other hammer toe(s) (acquired), right foot (M20.41) Active confirmed Problem Acquired hammer toe of left foot (2271652971206930 ) Other hammer toe(s) (acquired), left foot (M20.42) Active confirmed Problem Osteoarthritis of midtarsal joint of left foot (0780155481063757 ) Osteoarthritis of midtarsal joint of left foot (M19.072) Active confirmed Problem Osteoarthritis of midtarsal joint of right foot (6372644589661074 ) 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 Vital Signs Blood pressure diastolic 70 mm Hg 09/10/2024 Height 5 ft 11 in in 09/10/2024 Blood pressure systolic 130 mm Hg 09/10/2024 Weight 327 lbs 09/10/2024 BMI 45.6 kg/m2 09/10/2024 Encounters Encounter Location Date Provider Diagnosis [facility] [place] [address] [place] [address] 09/10/2024 Daisy Silva Pain in left foot [...] of midtarsal joint of right foot M19.071 [facility] [address] [address] 09/28/2023 Solomon Ventura Assessments Encounter Date Diagnosis (ICD Code) Assessment Notes Treatment Notes Treatment Clinical Notes Section Notes 09/10/2024 Pain in left ankle and joints of left foot (ICD-10 - M25.572) 09/10/2024 Pain in left foot (ICD-10 - M79.672) 09/10/2024 Bursitis of left foot (ICD-10 - M77.52) 09/10/2024 Osteoarthritis of midtarsal joint of left foot (ICD-10 - M19.072) 09/10/2024 Pain in right foot (ICD-10 - M79.671) 09/10/2024 Pain in right ankle and joints of right foot (ICD-10 - M25.571) 09/10/2024 Bursitis of right foot (ICD-10 - M77.51) 09/10/2024 Osteoarthritis of midtarsal joint of right foot (ICD-10 - M19.071) Plan Of Treatment Pending Test Test Name Order Date X ray : Foot, left 3V 03/27/2015 Next Appt Details Provider Name:Daisy collado, 09/12/2025 11:15:00 AM, [address] [place], [address], Insurance Providers Payer Name Payer Address Payer Phone Subscriber Number Group Number Insured Name Patient Relationship to Insured Coverage Start Date Coverage End Date Medicare [employer] [address] [place] [address] [id number] Hector Colon Self - patient is the insured Medical (General) History Medical History History ICD Code transfusions diverticulosis chicken pox back, hip, knee pain chron's Surgical History Surgery Date(Month/Year) colon/intestinal surgery heart surgery unspecified lasik
== END 2024-09-10 10:56 | disposition home or self-care (01) ==
LOC: HO.RHE 10:09
PROVIDERS: PCP Internal Medicine; Visit Provider Student in an Organized Health Care Education/Training Program
DX: K63.9 Disease of intestine, unspecified (principal); M07.60 Enteropathic arthropathies, unspecified site; M1A.9XX1 Chronic gout, unspecified, with tophus (tophi); Z79.631 Long term (current) use of antimetabolite agent; Z51.81 Encounter for therapeutic drug level monitoring; Z79.899 Other long term (current) drug therapy
CPT/HCPCS: 99215; G2211

== ENCOUNTER → 2024-09-10 10:09 | Outpatient (BNVA) | payer MEDICARE, MEDICAID, SELFPAY | PROVIDERS: PCP Internal Medicine; Visit Provider Student in an Organized Health Care Education/Training Program | DX: M1A.9XX1 Chronic gout, unspecified, with tophus (tophi) (principal); M07.60 Enteropathic arthropathies, unspecified site; K50.90 Crohn's disease, unspecified, without complications; G47.33 Obstructive sleep apnea (adult) (pediatric); Z79.631 Long term (current) use of antimetabolite agent; Z51.81 Encounter for therapeutic drug level monitoring; Z99.89 Dependence on other enabling machines and devices; Z79.899 Other long term (current) drug therapy | CPT/HCPCS: 99212 ==

== ENCOUNTER 2024-09-27 10:14 | Outpatient (AMB) | payer MEDICARE, MEDICAID, SELFPAY ==
[2024-09-27 10:44] VITALS: BP 140/52; PULSE 48; O2SAT 98; BMI 46.4
--- NOTE | 2024-09-27 10:44 | MHC.OFFVIS ---
Vital Signs 09/27/24 10:44 Height 5 ft 11 in Weight 332 lb 14.368 oz BMI 46.4 BP 140/52 H Blood Pressure Location Lt brachial Position Sitting Pulse 48 L Pulse Source Pulse Oximeter Pulse Oximetry (%) 98 Oxygen Delivery Method Room Air Intake Visit Reasons: Obstructive sleep apnea Intake Note: pt is here for follow up of TIFFANY and received a new air sense 11, and is doing well, just a smaller water chamber. Systems Checkout Mechanic Required: No Allergies tramadol Allergy (Mild, Verified 09/27/24 11:20) Dizziness Medication List - Last Reconciled 09/27/24 by Cipriano Pearson MD acetaminophen ER (Tylenol Arthritis Pain) 1,300 mg PO Q8H allopurinol 450 mg (1.5 x 300 mg) PO DAILY 90 days amlodipine 10 mg PO QAM apixaban (Eliquis) 5 mg PO BID ferrous sulfate 324 mg PO DAILY folic acid 1 mg PO DAILY furosemide 80 mg PO QAM insulin syringe,safety needle (BD SafetyGlide Insulin Syringe) USE ONCE WEEKLY TO INJECT METHOTREXATE losartan 100 mg PO QAM methotrexate sodium 15 mg (0.6 mL) subcut QWEEK 90 days multivitamin 1 tab PO DAILY pantoprazole 40 mg PO QAM oexvozuu-tydb-rlzwe-oreg-capry 100 mg-150 mg- 50 mg-150 mg 1 cap PO DAILY vedolizumab (Entyvio) 300 mg IV Q8W Do you need a note to return to daycare/school/sports/work: No HPI HPI Obstructive sleep apnea: Details: 69 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 HE IS DOING VERY WELL WITH HIS CURRENT CPAP DEVICE( AIR-SENSE 11 ) AND FULLFACE MASK. THE WATER TANK IS SMALLER THAN BEFORE AND THE WATER FINISHES DURING THE NIGHT THEN HE WAKES UP WITH A DRY MOUTH. HE DENIES ANY DAYTIME SLEEPINESS. THERE HAS BEEN NO PROGRESS IN WEIGHT REDUCTION. [facility] Medical History COVID-19 Claustrophobia Arthritis Atrial septal defect Atrial fibrillation Gouty tophi of joint Restrictive lung disease Cervical spondylosis Epidermal cyst Essential hypertension Chronic right heart failure Crohn's disease TIFFANY on CPAP Morbid obesity Surgical History Hx of carpal tunnel repair History of colon resection History of excision of epidermal inclusion cyst (~03/27/21) History of esophagogastroduodenoscopy (EGD) Status post surgical atrial septal defect closure History of colonoscopy Family History Father Hx of Crohn's disease Cancer Mother Hx of type 2 diabetes mellitus Social History Are you a primary patient centered care specialist to a significant other at home: No Do you presently have visiting nurse or other home services: No Alcohol intake: never Comment: counts correct Patient Tobacco Use Status: Former Tobacco user Tobacco use type: Cigarette Years Smoked: 10 +/- Current occupational status: retired Current occupation: right hand dominant Review of Systems Const All systems reviewed & are unremarkable except as noted in HPI and below Eyes Reports no additional complaints ENT Reports no additional complaints Card Denies chest pain, Denies irregular heart rhythm and Denies leg edema Resp Reports as per HPI GI Reports GI cramping and Reports heartburn Reports no additional complaints Musc Reports arthralgias (especially in wrist joints) Neuro Reports no additional complaints Psych Reports no additional complaints Physical Exam Vital Signs: Last Vital Signs Pulse 48 L 09/27/24 10:44 BP 140/52 H 09/27/24 10:44 Pulse Ox 98 09/27/24 10:44 Oxygen Delivery Method Room Air 09/27/24 10:44 BMI result Body Mass Index 46.4 Const General: comfortable, no acute distress, alert and awake Orientation/consciousness: patient oriented x3 HEENT Head: Yes normal to inspection General nose exam: No nasal polyps present and No nasal discharge present Face and sinus: Yes sinuses nontender Mouth: oropharynx normal Throat: Yes posterior oropharynx normal Eyes General: appearance normal, both eyes and all related structures Neck Neck: Yes normal visual inspection, Yes no lymphadenopathy, Yes trachea midline and Yes no JVD Thyroid: Thyroid normal Chest Chest palpation & inspection: normal inspection of the chest, normal palpation of entire chest wall and no tenderness Resp Effort & Inspection: normal respiratory effort Auscultation: clear to auscultation bilaterally, no crackles, no wheezes and diminished lung sounds (BREATH SOUNDS ARE DIMINISHED OVER THE BASILAR AREAS.) Cardio Palpation: normal PMI Rate: regular rate Rhythm: regular rhythm Heart sounds: no gallops and no murmurs Peripheral pulses: Peripheral pulses 2+ throughout GI Palpation (GI): Soft to palpation, nontender, No hepatosplenomegaly present, no masses and Other GI palpation findings present (Midline scar Abdomen is Obese and protuberant, Lt. sided ventral hernia , ) Auscultation: normal bowel sounds Back/Spine/Pelvis Thoracic/Lumbar Spine: thoracic and lumbar spine normal to inspection Skin General skin exam: no rashes or lesions noted Neuro General: patient oriented x3 and no focal motor deficits Cranial nerves: Yes CN's II-XII intact bilaterally Extrem General: Yes normal to inspection, Yes no clubbing, cyanosis or edema and Yes no calf tenderness Psych Appearance: grossly normal and well kempt Speech and movement: Normal speech and movement present Results Reviewed Results Reviewed: COMPLIANCE REPORT FOR THE LAST 30 NIGHTS IS REVIEWED AND IT IS 100% WITH AVERAGE NIGHTLY USE OF 8 HOURS 46 MINUTES. THERE IS SOME AIR LEAK BUT RESIDUAL AHI ONLY 1.9 Assessment & Plan Assessment & Plan (1) Morbid obesity: Comment: IT IS A CHRONIC PROBLEM, HE IS WELL AWARE OF THIS ISSUE. Code(s): E66.01 - Morbid (severe) obesity due to excess calories Category: Medical Plan: ADVISE THAT DURING THE SUMMER MONTHS HE SHOULD TRY TO WALK OUTDOORS MUCH HE CAN, CUT. DOWN THE PORTIONS OF THE MEALS (2) Restrictive lung disease: Comment: PER SPIROMETRY FINDING THERE IS EVIDENCE OF MILD TO MODERATE DEGREE OF RESTRICTIVE PULMONARY DISORDER, THIS IS EXPECTED BECAUSE OF HIS MORBID OBESITY. Code(s): J98.4 - Other disorders of lung Category: Medical Plan: FOCUS ON WEIGHT REDUCTION. DEEP BREATHING EXERCISES AT LEAST 3 TIMES A DAY. (3) TIFFANY on CPAP: Comment: KNOWN CASE OF SEVERE OBSTRUCTIVE SLEEP APNEA. HE IS BEING TREATED WITH BILEVEL CPAP 24-20 AND IS VERY COMPLIANT. HIS SLEEP IS MUCH BETTER. Code(s): G47.33 - Obstructive sleep apnea (adult) (pediatric); Z99.89 - Dependence on other enabling machines and devices Category: Medical Plan: COMMENDED FOR GOOD COMPLIANCE AND ADVISED TO CONTINUE USING THE CPAP REGULARLY EVERY NIGHT. Coding Level of Care Code Est Pt Level 3 (71926) Diagnoses Morbid obesity E66.01 Restrictive lung disease J98.4 TIFFANY on CPAP G47.33; Z99.89
--- OUTSIDE RECORDS SUMMARY | 2024-09-27 11:13 | XMS_ITS ---
Author Organization [facility] Address [address] [place] [id number] Care Team Providers Care Estimator Printing Name Role Phone Garry Graves MD Primary Care Provider Daisy George Unavailable [phone] Solomon Ventura [phone] Encounters Encounter Location Date Provider Diagnosis [address] [phone] 08/30/2024 Solomon Ventura Plan Of Treatment Next Appt Details Provider Name:Daisymynor collado, 09/12/2025 11:15:00 AM, [address] [place] [address], [phone], Progress Notes * Hector COLON KDOB:[birth year] (69 yo M)Acc No.[id number]:08/30/2024 Progress Note Patient:?SERA Hector Edgar Provider:?Solomon Ventura DPM :1955???Age:69 Y???Sex:Male Narciso e:08/30/2024 Address:[address] [place] [id number] Pcp:Garry Graves MD Subjective: * Chief Complaints: * ??? * Medical History:? Objective: * Vitals:? Assessment: Plan: * Treatment: * Images: * The named appointment provid er may or may not be the originator of this progress note, and it is not deemed complete until electronically signed by the appointment provider. Sign off status: Pending * Provider:Beni Ventura DPM Date:? 025 Generated for aCpo raman/Davidson/Brenden on:?09/27/2024 11:13 AM EDT
--- OUTSIDE RECORDS SUMMARY | 2024-09-27 11:14 | XMS_ITS ---
[facility] Address [address] [place] [address] Care Team Providers Care Bilingual Sales Representative Name Role Phone Garry Graves MD Primary Care Provider Daisy George Unavailable [phone] Allergies Allergen (clinical drug ingredient) Drug/Non Drug [...] Osteoarthritis of midtarsal joint of left foot (8150116448179371 ) Osteoarthritis of midtarsal joint of left foot (M19.072) Active confirmed Problem Osteoarthritis of midtarsal joint of right foot (0013999144738516 ) 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 Vital Signs Height 5 ft 11 in in 09/10/2024 Weight 327 lbs 09/10/2024 BMI 45.6 kg/m2 09/10/2024 Blood pressure systolic 130 mm Hg 09/11/19 25 Blood pressure diastolic 70 mm Hg 025 Encounters Encounter Location Date Provider Diagnosis [facility] [address] [place] [address] 09/10/2024 Daisy Silva Pain in left foot [...] Provider Name:Daisy collado, 09/12/2025 11:15:00 AM, [address] [place], [phone], Progress Notes * Hector COLON KDOB:[birth year] (69 yo M)Acc No.[id number]:09/10/2024 Progress Note Patient:?SERAHector Edgar Provider:?Daisy Silva DPM :1955???Age:69 Y???Sex:Male Narciso e:09/10/2024 Address:[address] [place], [place] [phone] Pcp:Garry Graves MD Subjective: * Chief Complaints: [...] exercise to failure, expense, systemic complications, infection, [id number], prolongued postop course. 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
--- OUTSIDE RECORDS SUMMARY | 2024-09-27 11:14 | XMS_ITS | Data Portability ---
Author Organization [facility] Service Address [address] [place] [address] Assessment Encounter Date Assessment Date Assessment LastModified by Organization Details LastModified Time 08/17/2023 08/17/2023 [address] [place] [address] (MEDICAL PRACTITIONERS) MDM MODERATE MUST MEET 2 OUT OF [...] COVERED Not available 08/17/2023 11:35:12 10/19/2023 10/19/2023 [address] [place] [address] (MEDICAL PRACTITIONERS) MDM HIGH MUST MEET 2 OUT OF [...] reduce health risks and promote healthy living. [email or web address] Not available 02/08/2024 16:33:32 08/13/2024 08/13/2024 [address] [place] [address] (MEDICAL PRACTITIONERS) : MDM LOW MUST MEET 2 OF [...] te 125 mg tablet 2023 024 [email or web address] [id number], [address] [facility], [place], [place], [phone], 10/19/2023 13:55:23 Patient TargetsNo targets recorded. Patient Instructions Encounter Date Encounter Id Patient Instructions Last Modified By Organization Details Last Modified Time 08/17/2023 [id number] pulse oximetry* Not available 08/17/2023 11:13:27 10/19/2023 [id number] When You Want to Lose Weight: Care Instructions Not available 10/19/2023 14:23:11 crohn's disease: care instructions Not available 10/19/2023 14:23:11 heart failure: care instructions Not available 10/19/2023 14:23:11 learning about heart failure Not available 10/19/2023 14:23:11 02/08/2024 [id number] pulse oximetry* Not available 02/09/2024 23:02:02 sleep apnea: car e instructions Not available 02/09/2024 23:02:02 08/13/2024 [id number] medicines to avoid with kidney disease: care instructions Not available 08/13/2024 15:28:39 Reason for Referral None Reported. Results Created Date Observation Date Name Description Value Unit Range Abnormal Flag Note LastModifiedBy Organization Detail LastModifiedTime 08/17/19 24 08/17/2023 pulse oxime try* Result 97 Not Available [facility] [address] [facility], [place], [address], 08/15/2023 14:00:34 02/08/20 24 02/08/2024 pulse oxime try* Result 97 Not Available [facility] [address] [facility], [place], [address], 02/06/2024 12:00:52 06/28/19 24 06/24/2023 , echo ardio gram No observ ation record ed. [facility] [address], [place], [address], 08/17/2023 10:58:21 Result Notes None recorded. Problems Name Problem SNOMED Code Status Onset Date Resolution Date Notes Provider Name and Address Organization Details Recorded Time Crohn's disease 53845894 Active 2019 Garry Valdez DO [address] [facility], [place], [address], [place] [facility] 11:51:44 Degenerati on of lumbar interverte bral disc 71734354 Active 2020 Garry RussellRory Maribelalexander, DO [address] [place] [address], [address], [facility] 1 10:47:53 Osteoarthr itis 224368174 Active 2021 Garry Lópezalexander DO [address] [place] [address], [address], [facility] 2 15:14:41 Osteoarthr itis of joint of hand 70353361 Active 2022 SAI PIERCE [address] [place] [address], [address], [facility] 3 15:28:27 COVID-19 829983751 Active 2023 Garry RussellRory Valdez DO [address] [place] [address], [address], [facility] 4 13:31:54 Chronic tophaceous gout 34438719 Active 2023 Garry YvonneRory Valdez, DO [address] [place] [address], [address], [facility] 4 11:11:39 Acute right otitis media 957276528 Active 2023 Garry YvonneRory Valdez, DO [address] [place] [address], [address], [facility] 4 11:34:54 Psoriatic arthritis 009427127 Active 2023 Garry Valdez DO [address] [place] [address], [address], [facility] 4 14:16:12 Chronic kidney disease stage 3 558581026 Active 2024 Garry Valdez [address], [address], [facility] 5 15:28:23 Morbid obesity 637648060 [facility] 2017 [facility] 8 08:45:56 Congestive heart failure 93353907 Active 2017 Susan Florez jenifer [facility] 8 08:45:59 Obstructiv e sleep apnea syndrome 45301701 Active 2017 Susan Florez jenifer [facility] 8 08:46:05 Hypertensi ve disorder 71129051 Active 2017 Susan Florez jenifer [facility] 8 08:46:10 Problem Notes None recorded. Procedures Surgical History Date Name Laterality Status Provider Name and Address Organization Details Recorded Time 019 Corticosteroid Injection completed Garry Valdez DO [address] [place] [address], [address], [facility] 01/08/2019 10:11:59 Imaging Results Imaging Date Name Status LastModified by Organization Details LastModified Time 06/24/2023 , echocardiogram completed [address], [place], [address], 08/17/2023 10:58:21 Procedure Notes None recorded. Medical Equipment None Reported. Allergies Allergen ID Allergen Name Allergen Category Reaction Reaction Severity Criticality Documentation Date Start Date Code Code System Note Provider Name and Address Organization Details Recorded Time 3160 meloxicam medicatio n diarrhea severe Not available 11/20/20182018 91057 RxNorm Garry Valdez DO [address] [place], [address], [place] [facility] 9 17:32:39 4698 tramadol medicatio n dizziness moderate Not available 01/06/2021 62203 RxNorm SAI PIERCE [address] [place], [address], [facility] 1 11:05:59 Medications Name Sig Start Date [...] Updated DateTime 4 177.8 cm 45.3 kg/m2 449717. 19 g 67 /min 97 % 97 % 140 mm[Hg] 70 mm[Hg] Jeane Fabian [facility] 4 10:19:26 Date Recorded Body height Body mass index (BMI) Body weight Heart rate Oxygen saturation Oxygen saturation in Arterial blood by Pulse oximetry Systolic blood pressure Diastolic blood pressure Provider Name and Address Organization Details Last Updated DateTime 4 177.8 cm 44.9 kg/m2 216200. 41 g 55 /min 97 % 97 % 140 mm[Hg] 60 mm[Hg[facility] 10:44:51 Date Recorded Body height Body mass index (BMI) Body weight Heart rate Respiratory rate Oxygen saturation Oxygen saturation in Arterial blood by Pulse oximetry Systolic blood pressure Diastolic blood pressure Provider Name and Address Organization Details Last Updated DateTime 4 177.8 cm 44.9 kg/m2 759169. 41 g 52 /min 18 /min 99 % 99 % 132 mm[Hg] 66 mm[Hg] João Joyner [facility] 4 13:57:16 Date Recorded Body height Body mass index (BMI) Body weight Heart rate Oxygen saturation Oxygen saturation in Arterial blood by Pulse oximetry Systolic blood pressure Diastolic blood pressure Systolic blood pressure Diastolic blood pressure Provider Name and Address Organization Details Last Updated DateTime 4 177.8 cm 44.9 kg/m2 659208. 41 g 54 /min 97 % 97 % 140 mm[Hg] 70 mm[Hg] 132 mm[Hg] 70 mm[Hg] [facility] 4 16:35:02 Social History Question Answer Notes LastModified by Organizat ion Details LastModified Time Tobacco Smoking Status Former Smoker Not Available [facility] 03/18/2020 03:36:24 What Was The Date Of Your Most Recent Tobacco Screening? 02/08/2024 [email or web address] Information not available 02/08/2024 Sex: Unknown Functional Status Question Answer Note LastModified by Organization D etails LastModified Time Do you or have you ever used any other forms of tobacco or nicotine? No [email or web address] Information not available 08/24/2021 Mental Status None recorded. Family History Nothing Reported. Medical History No medical history recorded. Immunizations Vaccine Type Date Status Note Provider Nam e and Address Organization Details Recorded Time pneumococcal polysaccharide PPV23 0 [facility]2020 11:26:53 COVID-19, mRNA, LNP-S, PF, 30 mcg/0.3 mL dose 1 completed [facility] 11/25/2020 11:27:04 COVID-19, mRNA, LNP-S, PF, 30 mcg/0.3 mL dose 1 completed [facility] 11/25/2020 11:27:11 Hep B, unspecified formulation 0 [facility] 11/25/2020 11:27:24 Hep B, unspecified formulation 0 completed Nathalie Rhoades [facility] 11/25/2020 11:27:31 Hep B, unspecified formulation 1 completed [facility] 11/25/2020 11:27:37 Hep A, unspecified formulation 0 completed Nathalie Rhoades [facility] 11/25/2020 11:27:57 Hep A, unspecified formulation 0 completed Nathalie Rhoades [facility] 11/25/2020 11:28:04 Hep A, unspecified formulation 1 [facility] 11/25/2020 11:28:12 COVID-19, mRNA, LNP-S, PF, 30 mcg/0.3 mL dose 1 completed [facility] 01/06/2021 09:14:20 Influenza, split virus, quadrivalent, preservative 1 completed Susan burgess [facility] 08/24/2021 10:36:11 [facility]dap 9 [facility] 01/17/2019 08:11:56 Past Encounters Encounter ID Performer Location Encounter Start Date Encounter Closed Date Diagnosis/Indication Diagnosis SNOMED-CT Code Diagnosis ICD10 Code Diagnosis Note [id number] Garry Valdez DO [facility] [address] [facility], [place] [address] 09/13/2017 10:56:44 09/13/2017 16:01:17 Hypertensive disorder 47066356 I10 bp stable cont same meds Congestive heart failure 55216765 I50.9 stable and without exacerbati ons is euvolemic Tenosynovi tis of wrist 347359007 M65.839 [id number] Garry Valdez DO [facility] [address] [facility],[place] [facility] [place] [address] 01/25/2018 09:33:47 01/25/2018 10:14:56 Morbid obesity 521649304 E66.01 chronic illness and not working on it Hypertensive disorder 38 047806 I10 bp stable cont same meds Congestive heart failure 19478190 I50.9 stable and without exacerbati ons is euvolemic Obstructiv e sleep apnea syndrome 27298510 G47.33 stable and cont on jhsi cpap Screening for cardiovascular system disease 957055836 Z13.6 Edema of l ower extremity 373341598 R60.0 cont two tabs of lasix need to check K+ levels and creat [id number] Garry Valdez DO [facility] [address] [facility],[place] [facility] [place] [address] 05/23/2018 10:33:27 05/23/2018 16:49:35 Morbid obesity 235211853 E66.01 Work on weight loss Acute bronchitis 0790395 2 J20.9 Hypertensive disorder 38 734513 I10 mildly elevated, keep scheduled july appt Obstructiv e sleep apnea syndrome 04402022 G47.33 compliant with CPAP [id number] Garry Valdez [facility] [address] [facility], [place] [facility] [place] [address] 08/02/2018 08:56:16 08/02/2018 12:49:34 Obstructive sleep apnea syndrome 71019744 G47.33 stable and cont on jhsi cpap Hypertensive disorder 38 103877 I10 bp stable cont same meds Congestive heart failure 80396177 I50.9 stable and without exacerbati ons is euvolemic Morbid obesity 124166830 E66.01 chronic illness and not working on it Pain of samuel int of wrist 865690841 M25.539 recc refer he will consider appt with [place] [id number] Garry Valdez [facility] [address] [facility], [place] [address] 11/20/2018 16:16:38 11/20/2018 17:38:10 Adverse reaction to drug 56832461 T50.905A severe GI response to daily use of meloxicam that was orderd by specialist will need to take probiotics culturelle Hypertensive disorder 38 439422 I10 bp stable cont same meds Congestive heart failure 04415891 I50.9 stable and without exacerbati ons is euvolemic [id number] Garry Valdez [facility] [address] [facility], [place] [address] 12/27/2018 10:47:48 12/27/2018 13:47:31 Body mass index 40+ - severely obese 064966642 Z68.42 Hypertensive disorder 38 951044 I10 stable Obstructiv e sleep apnea syndrome 71036235 G47.33 uses cpap every night Knee pain 20295560 M25.5 69 right lateral knee pain OA vs tendinitis mendieta consider PT in future [id number] Garry Valdez [facility] [address] [facility], [place] [address] 01/08/2019 09:49:46 01/08/2019 10:20:43 Osteoarthritis of knee 356239146 M17.9 [place] [id number] Garry Valdez [facility] [address] [facility], [place] [address] 02/07/2019 08:53:44 02/07/2019 10:48:03 Hypertensive disorder 52905374 I10 bp stable cont same meds Congestive heart failure 06950796 I50.9 stable and without exacerbati ons is euvolemic echo is done recently and is excellent per verbal report Chronic diarrhea 7166927 09 K52.9 major lab done GI f/u andwill have colonosc next nov Morbid obesity 605687586 E66.01 with the diarrhea [place] been [place] wgt [id number] Garry Valdez [facility] [address] [facility] [address], [employer] [place] [address] 05/07/2019 10:23:47 05/07/2019 10:53:59 Hypertensive disorder 96808022 I10 bp stable cont same meds Congestive heart failure 41528573 I50.9 stable and without exacerbati ons is euvolemic echo is done recently and is excellent per report Obstructiv e sleep apnea syndrome 51721758 G47.33 stable and cont on jhsi cpap Diarrhea 36565031 R19.7 None since colonoscop y Crohn's disease 25911481 K50.90 Biopsy/abd CT of GI showed low grade inflammati on suggestive of Crohn's Seeing GI in one week Daughter has Crohn's [id number] Garry Valdez [facility] [address] [facility] [address], [employer] [place] [facility] [place] [address] 08/17/2019 09:29:29 08/17/2019 12:16:51 Congestive heart failure 92158696 I50.9 stable and without exacerbati ons is euvolemic echo is done recently and is excellent per report Hypertensive disorder 38 946841 I10 bp stable cont same meds Obstructiv e sleep apnea syndrome 19222295 G47.33 stable and cont on jhsi cpap Microcytic anemia 417824 007 D50.9 will be needing to take iron tab will use wifes MVI wish to get iron studies but he wont go out to get lab [id number] Garry Valdez [facility] [address] [facility] [address],[place] [address] 12/07/2019 08:58:03 12/07/2019 11:52:09 Congestive heart failure 38905642 I50.9 stable and without exacerbati ons is euvolemic echo is done recently and is excellent per report needs to renew his lasix no leg swelling Crohn's disease 36144048 K50.90 Biopsy/abd CT of GI showed low grade inflammati on suggestive of Crohn's Seeing GI in one week Daughter has Crohn's Hypertensive disorder 38 163686 I10 bp stable cont same meds Obstructiv e sleep apnea syndrome 79116580 G47.33 stable and cont [facility] [id number] Garry Valdez [facility] [address] [facility] [address],[place] [address] 04/28/2020 08:45:16 04/28/2020 10:57:40 Congestive heart failure 63612196 I50.9 stable and without exacerbati ons is euvolemic echo is done recently and is excellent per report needs to renew his lasix no leg swelling Hypertensive disorder 38 293658 I10 bp stable cont same meds Obstructiv e sleep apnea syndrome 89093128 G47.33 stable and cont on his cpap Morbid obesity 304545727 E66.01 long discussion re prob with his eating states is at 334 Crohn's disease 33637558 K50.90 seen by GI and has been started on HUmira pt is feeling better and will be seeing GI appt in may Garry Valdez [facility] [address] [facility] [address],[place] [address] 11/28/2020 11:06:02 11/28/2020 12:11:18 Hypertensive disorder 41446363 I10 bp stable cont same meds Congestive heart failure 77835384 I50.9 stable and without exacerbati ons is euvolemic echo is done recently and is excellent per report needs to renew his lasix no leg swelling Obstructiv e sleep apnea syndrome 48867654 G47.33 stable and cont on his cpap Hepatitis C screening 41 7453597 Z11.59 Morbid obesity 555473919 E66.01 long discussion re prob with his eating states is at 302 with the weight loss from the crohns Crohn's disease 48038830 K50.90 seen by GI and has been started on Entyvil IV infusion regimen pt is feeling better and will be seeing GI appt 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 2600423779 106 K50.018 we will have him see a rheumatolo gist [id number] Garry Valdez [facility] [address] [facility] [address],[place] [address] 12/10/2020 09:52:05 12/10/2020 11:56:49 Neck pain 77253978 M54.2 will start on msk relaxer and tramadolfu with XR Torticollis 18815083 M43 .6 fu with MSK relaxer [id number] Garry Valdez [facility] [address] [facility],[place] [address] 01/06/2021 09:05:10 01/06/2021 12:01:51 Epidermoid cyst of skin 993329112 L72.3 will fu with general surgeon for removal Degenerati on of cervical intervertebral disc 41045671 M50.30 will fu with PVSS [id number] Garry Valdez [facility] [address] [facility],[place] [address] 03/16/2021 11:22:42 03/16/2021 12:41:23 Low back pain 720358131 M54.59 will fu with XR to start on his low back Abnormal gait 03608118 R 26.9 will fu with order for stand up walker Bursitis o f olecranon of right elbow 0744589770 53075 [address]70[address] Bhardwaj about the pred taper [id number] Garry Valdez [facility] [address] [facility],[place] [address] 04/20/2021 10:25:43 04/20/2021 12:42:30 Hypertensive disorder 28228123 I10 bp stable cont same meds Congestive heart failure 57355526 I50.9 stable and without exacerbati ons is euvolemic echo is done recently and is excellent per report needs to renew his lasix no leg swelling Obstructiv e sleep apnea syndrome 83469185 G47.33 stable and cont on his cpap Crohn's disease 67434105 K50.90 seen by GI and has been started on Entyvil IV infusion regimen pt is feeling better and will be seeing GI appt Degenerati on of lumbar intervertebral disc 95873817 M51.36 Hearing loss 22515947 H9 0.3 will need audiogram 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 7738916360 105 M48.02 following sports med and undergoing PT will follow and obtain an emg nct if worsening as the xr [place] [id number] Garry Valdez [facility] [address] [facility],[place] [address] 08/24/2021 10:25:17 08/24/2021 11:40:12 Hypertensive disorder 58081460 I10 bp stable cont same meds Congestive heart failure 54593340 I50.9 stable and without exacerbati ons is euvolemic echo is done recently and is excellent per report needs to renew his lasix no leg swelling Morbid obesity 187085379 E66.01 long discussion re prob with his eating states is at 322 \told him this will lower his life expectancy s Crohn's disease 65707874 K50.90 seen by GI and has been started on Entyvil IV infusion regimen pt is feeling better and will be [place] appt [id number] Garry Valdez [facility] [address] [facility],[place] [address] 12/11/2021 14:47:03 12/11/2021 16:18:04 Hypertensive disorder 01784485 I10 bp stable cont same meds Depression screening 171 198010 Z13.31 negative PHQ2 screening at today's visit Crohn's disease 86165866 K50.90 seen by GI and= is on methotrexa te sq injection pt is feeling better and will be seeing GI appt Congestive heart failure 28319679 I50.9 stable and without exacerbati ons is euvolemic echo is done recently and is excellent per report needs to renew his lasix no leg swelling Osteoarthritis 269740373 M19.90 he is still struggling with the arthralgia [id number] Garry Valdez DO [facility] [address] [facility],[place] [address] 04/30/2022 10:54:24 04/30/2022 15:17:59 Congestive heart failure 99942311 I50.9 stable and without exacerbati ons is euvolemic echo is done recently and is excellent per report needs to renew his lasix no leg swelling Hypertensive disorder 38 317687 I10 bp stable cont same meds Osteoarthritis 072495755 M19.90 he is still struggling with the arthralgia encouraged to walk Obstructiv e sleep apnea syndrome 14892974 G47.33 stable and cont on his cpap but wondering about a new device for the chest??? [id number] Garry YvonneRory Valdez [facility] [address] [facility], [facility] [place] [address] 11/26/2022 10:17:44 11/26/2022 11:32:27 Congestive heart failure 32346389 I50.9 stable and without exacerbati ons is euvolemic echo is done recently and is excellent per report needs to renew his lasix no leg swelling Hypertensive disorder 38 345507 I10 bp stable cont same meds Morbid obesity 291963331 E66.01 he has lost 8 lbs Crohn's disease 48613818 K50.90 seen by GI and= is on methotrexa te sq injection pt is feeling better and will be following GI appt [id number] Garry Reich Star [facility] [address] [facility],[address] [place] [address] 06/06/2023 10:12:51 06/06/2023 10:41:44 Morbid obesity 929068552 E66.01 stable Hypertensive disorder 38 583685 I10 cleared by cardiology Obstructiv e sleep apnea syndrome 07953337 G47.33 stable, no changes Congestive heart failure 15315994 I50.89 stable per cardiology Pre-surger y evaluation 684795765 Z01.818 The patient was seen in the office today for pre-op evaluation . All medical conditions on patient's problem list were addressed and are currently stable, no interventi on needed at this time. Based on history and physical performed, the patient is cleared for surgery. [id number] Garry Valdez [facility] [address] [facility], [place] [address] 08/17/2023 10:37:50 08/17/2023 11:36:58 Crohn's disease 32099635 K50.90 seen by GI and= is on methotrexa te sq injection pt is feeling better and will be following GI appt Congestive heart failure 86839222 I50.89 stable and without exacerbati ons his recent cardiac work up was ecellent including echo and heart cath is euvolemic needs to renew his lasix no leg swelling Hypertensive disorder 38 951723 I10 bp stable cont same meds Morbid obesity 209131635 E66.01 no further wgt loss Chronic to phaceous gout 44096669 M1A.9XX1 Acute righ t otitis media 881213954 H66.91 [id number] Garry Valdez [facility] [address] [facility], [place] [address] 10/19/2023 13:46:51 10/19/2023 14:34:25 Acute right otitis media 155904274 H66.91 has now resolved discussed in depth how TM can get infected Depression screening 171 909020 Z13.31 negative PHQ2 screening at today's visit Hypertensive disorder 38 184514 I10 bp stable cont same meds Degenerati on of lumbar intervertebral disc 22836463 M51.36 still about the same but he is manging Congestive heart failure 65711634 I50.89 stable and without exacerbati ons his recent cardiac work up was ecellent including echo and heart cath is euvolemic needs to renew his lasix no leg swelling Morbid obesity 309571594 E66.01 no further wgt loss Psoriatic arthritis 1563 33695 L40.50 having a hard time getting this controlled hurts to walk any distancedo es have a handicap platehas been on MTX for this Crohn's disease 36523006 K50.90 seen by GI and= is on methotrexa te sq injection an stable with Entyvio pt is feeling better and will be following GI appt [id number] Garry Valdez DO [facility] [facility] [address] [facility],[address] [place] [address] 02/08/2024 16:03:32 02/10/2024 08:57:21 Congestive heart failure [id number] I50.89 stable and without exacerbati ons his recent cardiac work up was ecellent including echo and heart cath is euvolemic needs to renew his lasix no leg swelling Psoriatic arthritis 1563 76061 L40.50 having a hard time getting this controlled hurts to walk any distancedo es have a handicap platehas been on MTX for this Obstructiv e sleep apnea syndrome [id number] G47.33 stable and cont on his cpap but wondering about a new device for the chest??? [id number] Garry Valdez [facility] [address],[place] [address] 08/13/2024 08:38:51 08/13/2024 15:39:07 Congestive heart failure 47102994 I50.89 stable and without exacerbati ons his recent cardiac work up was ecellent including echo and heart cath is euvolemic needs to renew his lasix no leg swelling Hypertensive disorder 38 241311 I10 bp stable cont same meds Crohn's disease 45018531 K50.90 seen by GI and= is on methotrexa te sq injection an stable with Entyvio pt is feeling better and will be following GI appt Depression screening 171 896042 Z13.31 negative PHQ2 screening at today's visit Chronic ki dney disease stage 3 [id number] N18.30 followed by renal and doing very well no new issues Health Concerns Section Related Observation LastModified by Organization Detai ls LastModified Time None Recorded Concern Status LastModified by Organization Details LastModified Time None Recorded Advance Directives Directive None Recorded Payers Encounter Date Sequence Insurance Name Policy Number Policy Damon Covered Member ID Damon Member ID Guarantor Name 06/06/2023 2 [place] Hector Hernández Isaiah [id number] Hector Isaiah 06/06/2023 1 [place] [employer] Hector Hernández Isaiah [id number] Hector Isaiah 08/17/2023 2 [place] Hector Hernández Isaiah [id number] Hector Isaiah 08/17/2023 1 [place] [employer] [place] Hector Hernández Isaiah [id number] Hector Isaiah 10/19/2023 2 [place] Hector Hernández Isaiah [id number] Hector Isaiah 10/19/2023 1 [place] Hector Hernández Isaiah [id number] Hector Isaiah 02/08/2024 2 [place] Hector Hernández Isaiah [id number] Hector Isaiah 02/08/2024 1 [place] Hector Hernández Isaiah [id number] Hector Isaiah 08/13/2024 2 [place] [facility] Hector Colon [id number] Hector Colon 08/13/2024 1 [place] [facility] Hector Colon [id number] Hector Colon Notes Date Note Type Note Provider Name and Address Organization Details Recorded Time 4 text/htm l Pre-OpReported bypatient.Surgery to be Performed:carpal tunnel surgery (bilaterally) and both elbows (biopsy) with Dr. Colin at [facility] Severity:severe Risk Factorsno cognitive impairment; no functional [...] Support:adequate assistance at home () cleared by field service specialist and acid condenser SAI PIERCE [address] [place], [address], [facility] 06/06/2023 10:36:13 4 text/htm gavin has had long medical problems over past [...] should be restarted Garry Valdez DO [address] [facility], [place], [address], [facility] 08/17/2023 11:35:26 [...] controlled no bleeding Garry Valdez DO [address] [place], [address], [facility] 10/19/2023 14:23:32 4 text/htm l here for rechk and is doing jessica MTX and recent lab shows ongoing anemia creat is still ok overallarhtritis is bothering himcrohns is quiet ]'gout has been the issue uric acid is 7.2 Garry Valdez DO [address] [place], [address], [facility] 02/09/2024 23:02:06 5 text/htm l [...] change in meds Garry Valdez DO [address] [place], [address], [facility] 08/13/2024 15:28:54
--- OUTSIDE RECORDS SUMMARY | 2024-09-27 11:14 | XMS_ITS | Patient Health Record ---
Author Organization [facility] [place] Address [address] [place] [address] Care Team Providers Care Biologics Specialist Name Role Phone Garry Graves MD Primary Care Provider Daisy George Unavailable [phone] VenturaJuvencioSolomon Unavailable [phone] Allergies Allergen (clinical drug ingredient) Drug/Non Drug [...] primary osteoarthritis of the ankle and/or foot (861889557) Primary osteoarthritis, left ankle and foot (M19.072) Active confirmed Problem Plantar fascial fibromatosis (55206794) Plantar 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) Active confirmed Problem Acquired hammer toe of right foot (2867015471820311 ) Other hammer toe(s) (acquired), right foot (M20.41) Active confirmed Problem Acquired hammer toe of left foot (7314595715774185 ) Other hammer toe(s) (acquired), left foot (M20.42) Active confirmed Problem Osteoarthritis of midtarsal joint of left foot (3500609662231686 ) Osteoarthritis of midtarsal joint of left foot (M19.072) Active confirmed Problem Osteoarthritis of midtarsal joint of right foot (5541456208971798 ) 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 Vital Signs Blood pressure diastolic 70 mm Hg 09/10/2024 Height 5 ft 11 in in 09/10/2024 Blood pressure systolic 130 mm Hg 09/10/2024 Weight 327 lbs 09/10/2024 BMI 45.6 kg/m2 09/10/2024 Encounters Encounter Location Date Provider Diagnosis [facility] [address] [place] [address] 09/10/2024 Daisy Silva Pain in left foot [...] of midtarsal joint of right foot M19.071 [facility] [address] [address] 09/28/2023 Solomon Ventura Assessments Encounter Date Diagnosis [...] Provider Name:Daisy collado, 09/12/2025 11:15:00 AM, [address] [place], [address], Insurance Providers Payer Name Payer Address Payer Phone Subscriber Number Group Number Insured Name Patient Relationship to Insured Coverage Start Date Coverage End Date Medicare [employer] [address] [place] [address] [id number] Hector Colon Self - patient is the insured Medical (General) History Medical History History ICD Code transfusions diverticulosis chicken pox back, hip, knee pain chron's Surgical History Surgery Date(Month/Year) colon/intestinal surgery heart surgery unspecified lasik
--- OUTSIDE RECORDS SUMMARY | 2024-09-27 11:14 | XMS_ITS ---
Author Organization [facility] Address [address] [place] [address] Care Team Providers Care Manager General Name Role Phone Garry Graves MD Primary Care Provider Daisy George [phone] Encounters Encounter Location Date Provider Diagnosis [address] [address] 08/30/2024 Daisy Silva Plan Of Treatment Next Appt Details Provider Name:Daisy collado, 09/12/2025 11:15:00 AM, [address] [place] [address], [address], Progress Notes * SERA Hector KDOB:[birth year] (69 yo M)Acc No.[id number]:08/30/2024 Progress Note Patient:?Hector ZAMORA Provider:?Daisy Silva DPM :1955???Age:69 Y???Sex:Male Narciso e:08/30/2024 Address:[address] [place] [address] [place] [address] Pcp:Garry Graves MD Subjective: * Chief Complaints: [...] DPM Date:?0 08/30/2024 Generated for Capo raman/Davidson/Brenden on:?09/27/2024 11:13 AM EDT
== END 2024-09-27 11:21 | disposition home or self-care (01) ==
PROVIDERS: PCP Internal Medicine; Visit Provider Internal Medicine
DX: E66.01 Morbid (severe) obesity due to excess calories (principal); J98.4 Other disorders of lung; G47.33 Obstructive sleep apnea (adult) (pediatric); Z99.89 Dependence on other enabling machines and devices
CPT/HCPCS: 99213

== ENCOUNTER → 2024-09-27 10:14 | Outpatient (BNVA) | payer MEDICARE, MEDICAID, SELFPAY | PROVIDERS: PCP Internal Medicine; Visit Provider Internal Medicine | DX: G47.33 Obstructive sleep apnea (adult) (pediatric) (principal); E66.01 Morbid (severe) obesity due to excess calories; J84.9 Interstitial pulmonary disease, unspecified; Z99.89 Dependence on other enabling machines and devices; Z87.891 Personal history of nicotine dependence | CPT/HCPCS: 99212 ==

== ENCOUNTER 2024-10-01 08:46 | Outpatient (AMB) | payer MEDICARE, MEDICAID, SELFPAY ==
--- OUTSIDE RECORDS SUMMARY | 2024-10-01 08:53 | XMS_ITS ---
Author Organization [facility] Address [address] [place] [address] Care Team Providers Care Circuit Board Drafter Name Role Phone Garry Graves MD Primary Care Provider Daisy George Unavailable [phone] Allergies Allergen (clinical drug ingredient) Drug/Non Drug [...] Osteoarthritis of midtarsal joint of left foot (5539455344536176 ) Osteoarthritis of midtarsal joint of left foot (M19.072) Active confirmed Problem Osteoarthritis of midtarsal joint of right foot (2624914162215075 ) 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 Vital Signs Height 5 ft 11 in in 09/10/2024 Weight 327 lbs 09/10/2024 BMI 45.6 kg/m2 09/10/2024 Blood pressure systolic 130 mm Hg 09/11/19 25 Blood pressure diastolic 70 mm Hg 025 Encounters Encounter Location Date Provider Diagnosis [facility] [address] [place] [address] 09/10/2024 Daisy Silva Pain in left foot [...] Provider Name:Daisy collado, 09/12/2025 11:15:00 AM, [address] [place], [address], Progress Notes * Hector COLON KDOB:[birth year] (69 yo M)Acc No.[id number]:09/10/2024 Progress Note Patient:?SERAHector Edgar Provider:?Daisy Silva DPM :1955???Age:69 Y???Sex:Male Narciso e:09/10/2024 Address:[address] [place], [place] [address] Pcp:Garry Graves MD Subjective: * Chief Complaints: [...] exercise to failure, expense, systemic complications, infection, [id number], prolongued postop course. Patient questions re: the various treatment options available, their successes and potential failures, and parts counterman effects were discussed and the answers were [...] DPM Date:?0 09/10/2024 Generated for Capo raman/Davidson/eTtad on:?10/01/2024 08:53 AM EDT History and Physical Notes * [...]
--- OUTSIDE RECORDS SUMMARY | 2024-10-01 08:53 | XMS_ITS ---
Author Organization [facility] Address [address] [place] [address] Care Team Providers Care Electrocardiograph Technician Name Role Phone Garry Graves MD Primary Care Provider Daisy George Unavailable [phone] Solomon Ventura [phone] Encounters Encounter Location Date Provider Diagnosis [address] [address] 08/30/2024 Solomon Ventura Plan Of Treatment Next Appt Details Provider Name:Daisy collado, 09/12/2025 11:15:00 AM, [address] [place] [address], [address], Progress Notes * Hector COLON KDOB:[birth year] (69 yo M)Acc No.[id number]:08/30/2024 Progress Note Patient:?SERA Hector Edgar Provider:?Solomon Ventura DPM :1955???Age:69 Y???Sex:Male Narciso e:08/30/2024 Address:[address] [place] [phone] Pcp:Garry Graves MD Subjective: * Chief Complaints: [...] DPM Date:? 025 Generated for Capo raman/Davidson/Brenden on:?10/01/2024 08:53 AM EDT
--- OUTSIDE RECORDS SUMMARY | 2024-10-01 08:53 | XMS_ITS ---
Author Organization [facility] Address [address] [place] [address] Care Team Providers Care Fixed Income Portfolio Manager Name Role Phone Garry Graves MD Primary Care Provider Daisy George [phone] Encounters Encounter Location Date Provider Diagnosis [address] [address] 08/30/2024 Daisy Silva Plan Of Treatment Next Appt Details Provider Name:Daisy collado, 09/12/2025 11:15:00 AM, [address] [place] [address], [address], Progress Notes * SERA Hector KDOB:[birth year] (69 yo M)Acc No.[id number]:08/30/2024 Progress Note Patient:?Hector ZAMORA Provider:?Daisy Silva DPM :1955???Age:69 Y???Sex:Male Narciso e:08/30/2024 Address:[address] [place] [address] [place] [phone] Pcp:Garry Graves MD Subjective: * Chief Complaints: [...] DPM Date:?0 08/30/2024 Generated for Capo raman/Davidson/Brenden on:?10/01/2024 08:53 AM EDT
--- OUTSIDE RECORDS SUMMARY | 2024-10-01 08:53 | XMS_ITS | Data Portability ---
Author Organization [facility] Service Address [address] [place] [address] Assessment Encounter Date Assessment Date Assessment LastModified by Organization Details LastModified Time 08/17/2023 08/17/2023 [address] [place] [address] ([employer]CTION[employer]) MDM MODERATE MUST MEET 2 OUT OF [...] COVERED Not available 08/17/2023 11:35:12 10/19/2023 10/19/2023 [address] [place] [address] ([employer]CTION[employer]) MDM HIGH MUST MEET 2 OUT OF [...] reduce health risks and promote healthy living. [email or web address] Not available 02/08/2024 16:33:32 08/13/2024 08/13/2024 [id number] [place] [address] ([employer]RECTIONAL OFF[employer]ER [employer]) : MDM LOW MUST MEET 2 OF [...] te 125 mg tablet 2023 024 [email or web address] [id number], [address] [facility], [place], [place], [id number], 10/19/2023 13:55:23 Patient TargetsNo targets recorded. Patient Instructions Encounter Date Encounter Id Patient Instructions Last Modified By Organization Details Last Modified Time 08/17/2023 [id number] pulse oximetry* Not available 08/17/2023 11:13:27 10/19/2023 [id number] When You Want to Lose Weight: Care Instructions Not available 10/19/2023 14:23:11 crohn's disease: care instructions Not available 10/19/2023 14:23:11 heart failure: care instructions Not available 10/19/2023 14:23:11 learning about heart failure Not available 10/19/2023 14:23:11 02/08/2024 [id number] pulse oximetry* Not available 02/09/2024 23:02:02 sleep apnea: car e instructions Not available 02/09/2024 23:02:02 08/13/2024 [id number] medicines to avoid with kidney disease: care instructions Not available 08/13/2024 15:28:39 Reason for Referral None Reported. Results Created Date Observation Date Name Description Value Unit Range Abnormal Flag Note LastModifiedBy Organization Detail LastModifiedTime 08/17/19 24 08/17/2023 pulse oxime try* Result 97 Not Available [facility] [address] [facility], [place], [place], [address], 08/15/2023 14:00:34 02/08/20 24 02/08/2024 pulse oxime try* Result 97 Not Available [facility] [address] [facility], [place], [place], [address], 02/06/2024 12:00:52 06/28/19 24 06/24/2023 , echo ardio gram No observ ation record ed. [facility] [address], [place], [address], 08/17/2023 10:58:21 Result Notes None recorded. Problems Name Problem SNOMED Code Status Onset Date Resolution Date Notes Provider Name and Address Organization Details Recorded Time Crohn's disease 26163834 Active 2019 Garry Valdez DO [address] [facility], [place], [address], [place] [facility] 11:51:44 Degenerati on of lumbar interverte bral disc 62863873 Active 2020 Garry RussellRory Maribelalexander, DO [address] [place] [address], [address], [facility] 1 10:47:53 Osteoarthr itis 450095779 Active 2021 Garry Lópezalexander DO [address] [place] [address], [address], [facility] 2 15:14:41 Osteoarthr itis of joint of hand 54821391 Active 2022 SAI PIERCE [address] [place] [address], [address], [facility] 3 15:28:27 COVID-19 743117571 Active 2023 Garry RussellRory Valdez DO [address] [place] [address], [address], [facility] 4 13:31:54 Chronic tophaceous gout 55873344 Active 2023 Garry YvonneRory Valdez, DO [address] [place] [address], [address], [facility] 4 11:11:39 Acute right otitis media 752753173 Active 2023 Garry YvonneRory Valdez, DO [address] [place] [address], [address], [facility] 4 11:34:54 Psoriatic arthritis 620205689 Active 2023 Garry Valdez DO [address] [place] [address], [address], [facility] 4 14:16:12 Chronic kidney disease stage 3 979672106 Active 2024 Garry Valdez [address], [address], [facility] 5 15:28:23 Morbid obesity 641571907 Active 2017 [facility] 8 08:45:56 Congestive heart failure 17435286 Active 2017 Susan Florez jenifer [facility] 8 08:45:59 Obstructiv e sleep apnea syndrome 19454884 Active 2017 Susan Florez jenifer [facility] 8 08:46:05 Hypertensi ve disorder 23764192 Active 2017 Susan Florez jenifer [facility] 8 08:46:10 Problem Notes None recorded. Procedures Surgical History Date Name Laterality Status Provider Name and Address Organization Details Recorded Time 019 Corticosteroid Injection completed Garry Valdez DO [address] [place] [address], [address], [facility] 01/08/2019 10:11:59 Imaging Results Imaging Date Name Status LastModified by Organization Details LastModified Time 06/24/2023 , echocardiogram completed [address], [place], [address], 08/17/2023 10:58:21 Procedure Notes None recorded. Medical Equipment None Reported. Allergies Allergen ID Allergen Name Allergen Category Reaction Reaction Severity Criticality Documentation Date Start Date Code Code System Note Provider Name and Address Organization Details Recorded Time 3160 meloxicam medicatio n diarrhea severe Not available 11/20/20182018 22235 RxNorm Garry Valdez DO [address] [place], [address], [place] [facility] 9 17:32:39 4698 tramadol medicatio n dizziness moderate Not available 01/06/2021 56236 RxNorm SAI PIERCE [address] [place], [address], [facility] 1 11:05:59 Medications Name Sig Start [...] Updated DateTime 4 177.8 cm 45.3 kg/m2 694283. 19 g 67 /min 97 % 97 % 140 mm[Hg] 70 mm[Hg] Jeane Fabian [facility] 4 10:19:26 Date Recorded Body height Body mass index (BMI) Body weight Heart rate Oxygen saturation Oxygen saturation in Arterial blood by Pulse oximetry Systolic blood pressure Diastolic blood pressure Provider Name and Address Organization Details Last Updated DateTime 4 177.8 cm 44.9 kg/m2 584156. 41 g 55 /min 97 % 97 % 140 mm[Hg] 60 mm[Hg] [facility] 4 10:44:51 Date Recorded Body height Body mass index (BMI) Body weight Heart rate Respiratory rate Oxygen saturation Oxygen saturation in Arterial blood by Pulse oximetry Systolic blood pressure Diastolic blood pressure Provider Name and Address Organization Details Last Updated DateTime 4 177.8 cm 44.9 kg/m2 067440. 41 g 52 /min 18 /min 99 % 99 % 132 mm[Hg] 66 mm[Hg] João Joyner [facility] 4 13:57:16 Date Recorded Body height Body mass index (BMI) Body weight Heart rate Oxygen saturation Oxygen saturation in Arterial blood by Pulse oximetry Systolic blood pressure Diastolic blood pressure Systolic blood pressure Diastolic blood pressure Provider Name and Address Organization Details Last Updated DateTime 4 177.8 cm 44.9 kg/m2 983049. 41 g 54 /min 97 % 97 % 140 mm[Hg] 70 mm[Hg] 132 mm[Hg] 70 mm[Hg] [facility] 4 16:35:02 Social History Question Answer Notes LastModified by Organizat ion Details LastModified Time Tobacco Smoking Status Former Smoker Not Available [facility] 03/18/2020 03:36:24 What Was The Date Of Your Most Recent Tobacco Screening? 02/08/2024 [email or web address] Information not available 02/08/2024 Sex: Unknown Functional [...] Time pneumococcal polysaccharide PPV23 [address] [facility] 11:26:53 COVID-19, mRNA, LNP-S, PF, 30 mcg/0.3 mL dose 1 completed [facility] 11/25/2020 11:27:04 COVID-19, mRNA, LNP-S, PF, 30 mcg/0.3 mL dose 1 completed [facility]athalie [facility]icksimone [facility] 11/25/2020 11:27:11 Hep B, unspecified formulation 0 [facility] 11/25/2020 11:27:24 Hep B, unspecified formulation 0 completed Nathalie Rhoades [facility] 11/25/2020 11:27:31 Hep B, unspecified formulation 1 completed [facility] 11/25/2020 11:27:37 Hep A, unspecified formulation 0 completed Nathalie Rhoades [facility] 11/25/2020 11:27:57 Hep A, unspecified formulation 0 completed Nathalie Rhoades [facility] 11/25/2020 11:28:04 Hep A, unspecified formulation 1 [facility] 11/25/2020 11:28:12 COVID-19, mRNA, LNP-S, PF, 30 mcg/0.3 mL dose [address] [facility] 01/06/2021 09:14:20 Influenza, split virus, quadrivalent, preservative 1 completed Susan burgess [facility] 08/24/2021 10:36:11 T[address] [facility] 01/17/2019 08:11:56 Past Encounters Encounter ID Performer Location Encounter Start Date Encounter Closed Date Diagnosis/Indication Diagnosis SNOMED-CT Code Diagnosis ICD10 Code Diagnosis Note [id number] Garry Valdez DO [facility] [address] [facility], [place] [address] 09/13/2017 10:56:44 09/13/2017 16:01:17 Hypertensive disorder 45169730 I10 bp stable cont same meds Congestive heart failure 26714160 I50.9 stable and without exacerbati ons is euvolemic Tenosynovi tis of wrist 165606305 M65.839 [id number] Garry Valdez DO [facility] [address] [facility],[place] [address] 01/25/2018 09:33:47 01/25/2018 10:14:56 Morbid obesity 379844608 E66.01 chronic illness and not working on it Hypertensive disorder 38 183586 I10 bp stable cont same meds Congestive heart failure 66308030 I50.9 stable and without exacerbati ons is euvolemic Obstructiv e sleep apnea syndrome 33396271 G47.33 stable and cont on jhsi cpap Screening for cardiovascular system disease 118923717 Z13.6 Edema of l ower extremity 118270703 R60.0 cont two tabs of lasix need to check K+ levels and creat [id number] Garry Valdez DO [facility] [address] [facility],[place] [address] 05/23/2018 10:33:27 05/23/2018 16:49:35 Morbid obesity 069382637 E66.01 Work on weight loss Acute bronchitis 4411448 2 J20.9 Hypertensive disorder 38 204908 I10 mildly elevated, keep scheduled july appt Obstructiv e sleep apnea syndrome 46466372 G47.33 compliant with CPAP [id number] Garry Valdez [facility] [address] [facility], [place] [address] 08/02/2018 08:56:16 08/02/2018 12:49:34 Obstructive sleep apnea syndrome 11977167 G47.33 stable and cont on jhsi cpap Hypertensive disorder 38 133424 I10 bp stable cont same meds Congestive heart failure 67501230 I50.9 stable and without exacerbati ons is euvolemic Morbid obesity 156492805 E66.01 chronic illness and not working on it Pain of samuel int of wrist 187366696 M25.539 recc refer he will consider appt with [place] [id number] Garry Valdez [facility] [address] [facility], [place] [address] 11/20/2018 16:16:38 11/20/2018 17:38:10 Adverse reaction to drug 05522924 T50.905A severe GI response to daily use of meloxicam that was orderd by specialist will need to take probiotics culturelle Hypertensive disorder 38 210244 I10 bp stable cont same meds Congestive heart failure 09555140 I50.9 stable and without exacerbati ons is euvolemic [id number] Garry Valdez [facility] [address] [facility], [place] [address] 12/27/2018 10:47:48 12/27/2018 13:47:31 Body mass index 40+ - severely obese 846669242 Z68.42 Hypertensive disorder 38 481443 I10 stable Obstructiv e sleep apnea syndrome 34225576 G47.33 uses cpap every night Knee pain 53431092 M25.5 69 right lateral knee pain OA vs tendinitis mendieta consider PT in future [id number] Garry Valdez [facility] [address] [facility], [place] [address] 01/08/2019 09:49:46 01/08/2019 10:20:43 Osteoarthritis of knee 922090661 M17.9 [place] [id number] Garry Valdez [facility] [address] [facility], [place] [address] 02/07/2019 08:53:44 02/07/2019 10:48:03 Hypertensive disorder 78765796 I10 bp stable cont same meds Congestive heart failure 73152784 I50.9 stable and without exacerbati ons is euvolemic echo is done recently and is excellent per verbal report Chronic diarrhea 7971666 09 K52.9 major lab done GI f/u andwill have colonosc next nov Morbid obesity 917323650 E66.01 with the diarrhea [place] wgt [id number] Garry Valdez [facility] [address] [facility] [address], [employer] [facility] [place] [address] 05/07/2019 10:23:47 05/07/2019 10:53:59 Hypertensive disorder 83522713 I10 bp stable cont same meds Congestive heart failure 13545556 I50.9 stable and without exacerbati ons is euvolemic echo is done recently and is excellent per report Obstructiv e sleep apnea syndrome 79647687 G47.33 stable and cont on jhsi cpap Diarrhea 72616511 R19.7 None since colonoscop y Crohn's disease 80925767 K50.90 Biopsy/abd CT of GI showed low grade inflammati on suggestive of Crohn's Seeing GI in one week Daughter has Crohn's [id number] Garry Valdez [facility] [address] [facility] [address] [place], [employer] [place] [address] 08/17/2019 09:29:29 08/17/2019 12:16:51 Congestive heart failure 50825710 I50.9 stable and without exacerbati ons is euvolemic echo is done recently and is excellent per report Hypertensive disorder 38 934955 I10 bp stable cont same meds Obstructiv e sleep apnea syndrome 80826880 G47.33 stable and cont on jhsi cpap Microcytic anemia 048342 007 D50.9 will be needing to take iron tab will use wifes MVI wish to get iron studies but he wont go out to get lab [id number] Garry Valdez [facility] [address] [facility] [address],[place] [address] 12/07/2019 08:58:03 12/07/2019 11:52:09 Congestive heart failure 68254108 I50.9 stable and without exacerbati ons is euvolemic echo is done recently and is excellent per report needs to renew his lasix no leg swelling Crohn's disease 75088943 K50.90 Biopsy/abd CT of GI showed low grade inflammati on suggestive of Crohn's Seeing GI in one week Daughter has Crohn's Hypertensive disorder 38 683042 I10 bp stable cont same meds Obstructiv e sleep apnea syndrome 06328175 G47.33 stable and cont on [facility] cpap [id number] Garry Valdez [facility] [address] [facility] [address],[place] [address] 04/28/2020 08:45:16 04/28/2020 10:57:40 Congestive heart failure 59230751 I50.9 stable and without exacerbati ons is euvolemic echo is done recently and is excellent per report needs to renew his lasix no leg swelling Hypertensive disorder 38 779571 I10 bp stable cont same meds Obstructiv e sleep apnea syndrome 21123689 G47.33 stable and cont on his cpap Morbid obesity 808772060 E66.01 long discussion re prob with his eating states is at 334 Crohn's disease 03622002 K50.90 seen by GI and has been started on HUmira pt is feeling better and will be seeing GI appt in may Garry Valdez [facility] [address] [facility] [address],[place] [address] 11/28/2020 11:06:02 11/28/2020 12:11:18 Hypertensive disorder 00774274 I10 bp stable cont same meds Congestive heart failure 06863397 I50.9 stable and without exacerbati ons is euvolemic echo is done recently and is excellent per report needs to renew his lasix no leg swelling Obstructiv e sleep apnea syndrome 05146448 G47.33 stable and cont on his cpap Hepatitis C screening 41 2036216 Z11.59 Morbid obesity 720795582 E66.01 long discussion re prob with his eating states is at 302 with the weight loss from the crohns Crohn's disease 34742237 K50.90 seen by GI and has been started on Entyvil IV infusion regimen pt is feeling better and will be seeing GI appt 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 1152304927 106 K50.018 we will have him see a rheumatolo gist [id number] Garry Valdez [facility] [address] [facility] [address],[place] [address] 12/10/2020 09:52:05 12/10/2020 11:56:49 Neck pain 57953990 M54.2 will start on msk relaxer and tramadolfu with XR Torticollis 04870971 M43 .6 fu with MSK relaxer [id number] Garry Valdez [facility] [address] [facility],[place] [address] 01/06/2021 09:05:10 01/06/2021 12:01:51 Epidermoid cyst of skin 585197171 L72.3 will fu with general surgeon for removal Degenerati on of cervical intervertebral disc 95120164 M50.30 will fu with PVSS [id number] Garry Valdez [facility] [address] [facility],[place] [address] 03/16/2021 11:22:42 03/16/2021 12:41:23 Low back pain 298733401 M54.59 will fu with XR to start on his low back Abnormal gait 23323445 R 26.9 will fu with order for stand up walker Bursitis o f olecranon of right elbow 9901272092 61916 M70[address] Bhardwaj about the pred taper [id number] Garry Valdez [facility] [address] [facility],[place] [address] 04/20/2021 10:25:43 04/20/2021 12:42:30 Hypertensive disorder 68444079 I10 bp stable cont same meds Congestive heart failure 51656404 I50.9 stable and without exacerbati ons is euvolemic echo is done recently and is excellent per report needs to renew his lasix no leg swelling Obstructiv e sleep apnea syndrome 42210396 G47.33 stable and cont on his cpap Crohn's disease 41214061 K50.90 seen by GI and has been started on Entyvil IV infusion regimen pt is feeling better and will be seeing GI appt Degenerati on of lumbar intervertebral disc 45890118 M51.36 Hearing loss 48811252 H9 0.3 will need audiogram 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 9662651188 105 M48.02 following sports med and undergoing PT will follow and obtain an emg nct if worsening as the [place] [id number] Garry Valdez [facility] [address] [facility],[place] [address] 08/24/2021 10:25:17 08/24/2021 11:40:12 Hypertensive disorder 78590692 I10 bp stable cont same meds Congestive heart failure 78439245 I50.9 stable and without exacerbati ons is euvolemic echo is done recently and is excellent per report needs to renew his lasix no leg swelling Morbid obesity 648609565 E66.01 long discussion re prob with his eating states is at 322 \told him this will lower his life expectancy s Crohn's disease 57970556 K50.90 seen by GI and has been started on Entyvil IV infusion regimen pt is feeling better and will be seeing GI appt [id number] Garry Valdez [facility] [address] [facility],[place] [address] 12/11/2021 14:47:03 12/11/2021 16:18:04 Hypertensive disorder 63704793 I10 bp stable cont same meds Depression screening 171 486333 Z13.31 negative PHQ2 screening at today's visit Crohn's disease 23337796 K50.90 seen by GI and= is on methotrexa te sq injection pt is feeling better and will be seeing GI appt Congestive heart failure 74096870 I50.9 stable and without exacerbati ons is euvolemic echo is done recently and is excellent per report needs to renew his lasix no leg swelling Osteoarthritis 258906364 M19.90 he is still struggling with the arthralgia [id number] Garry Valdez DO [facility] [address] [facility],[place] [address] 04/30/2022 10:54:24 04/30/2022 15:17:59 Congestive heart failure 65037464 I50.9 stable and without exacerbati ons is euvolemic echo is done recently and is excellent per report needs to renew his lasix no leg swelling Hypertensive disorder 38 766991 I10 bp stable cont same meds Osteoarthritis 965175360 M19.90 he is still struggling with the arthralgia encouraged to walk Obstructiv e sleep apnea syndrome 24455684 G47.33 stable and cont on his cpap but wondering about a new device for the chest??? [id number] Garry YvonneRory Valdez [facility] [address] [facility], [place] [address] 11/26/2022 10:17:44 11/26/2022 11:32:27 Congestive heart failure 05992123 I50.9 stable and without exacerbati ons is euvolemic echo is done recently and is excellent per report needs to renew his lasix no leg swelling Hypertensive disorder 38 102461 I10 bp stable cont same meds Morbid obesity 766616391 E66.01 he has lost 8 lbs Crohn's disease 28983689 K50.90 seen by GI and= is on methotrexa te sq injection pt is feeling better and will be following GI appt [id number] Garry Reich Star [facility] [address] [facility] [place] [place] [address] 06/06/2023 10:12:51 06/06/2023 10:41:44 Morbid obesity 680296444 E66.01 stable Hypertensive disorder 38 260519 I10 cleared by cardiology Obstructiv e sleep apnea syndrome 56929675 G47.33 stable, no changes Congestive heart failure 22387910 I50.89 stable per cardiology Pre-surger y evaluation 302530160 Z01.818 The patient was seen in the office today for pre-op evaluation . All medical conditions on patient's problem list were addressed and are currently stable, no interventi on needed at this time. Based on history and physical performed, the patient is cleared for surgery. [id number] Garry Valdez [facility] [address] [facility], [place] [address] 08/17/2023 10:37:50 08/17/2023 11:36:58 Crohn's disease 02791072 K50.90 seen by GI and= is on methotrexa te sq injection pt is feeling better and will be following GI appt Congestive heart failure 60171138 I50.89 stable and without exacerbati ons his recent cardiac work up was ecellent including echo and heart cath is euvolemic needs to renew his lasix no leg swelling Hypertensive disorder 38 786757 I10 bp stable cont same meds Morbid obesity 367337278 E66.01 no further wgt loss Chronic to phaceous gout 50235498 M1A.9XX1 Acute righ t otitis media 075172343 H66.91 [id number] Garry Valdez [facility] [address] [facility], [place] [address] 10/19/2023 13:46:51 10/19/2023 14:34:25 Acute right otitis media 151062061 H66.91 has now resolved discussed in depth how TM can get infected Depression screening 171 347177 Z13.31 negative PHQ2 screening at today's visit Hypertensive disorder 38 068359 I10 bp stable cont same meds Degenerati on of lumbar intervertebral disc 78921896 M51.36 still about the same but he is manging Congestive heart failure 78989282 I50.89 stable and without exacerbati ons his recent cardiac work up was ecellent including echo and heart cath is euvolemic needs to renew his lasix no leg swelling Morbid obesity 798628549 E66.01 no further wgt loss Psoriatic arthritis 1563 90322 L40.50 having a hard time getting this controlled hurts to walk any distancedo es have a handicap platehas been on MTX for this Crohn's disease 22673309 K50.90 seen by GI and= is on methotrexa te sq injection an stable with Entyvio pt is feeling better and will be following GI appt [id number] Garry Valdez DO [facility] [address] [facility] [place] [place] [address] 02/08/2024 16:03:32 02/10/2024 08:57:21 Congestive heart failure 35373503 I50.89 stable and without exacerbati ons his recent cardiac work up was ecellent including echo and heart cath is euvolemic needs to renew his lasix no leg swelling Psoriatic arthritis 1563 60531 L40.50 having a hard time getting this controlled hurts to walk any distancedo es have a handicap platehas been on MTX for this Obstructiv e sleep apnea syndrome 54807406 G47.33 stable and cont on his cpap but wondering about a new device for the chest??? [id number] Garry Valdez [facility] [address],[place] [address] 08/13/2024 08:38:51 08/13/2024 15:39:07 Congestive heart failure [id number] I50.89 stable and without exacerbati ons his recent cardiac work up was ecellent including echo and heart cath is euvolemic needs to renew his lasix no leg swelling Hypertensive disorder 38 [id number] I10 bp stable cont same meds Crohn's disease [id number] K50.90 seen by GI and= is on methotrexa te sq injection an stable with Entyvio pt is feeling better and will be following GI appt Depression screening 171 [id number] Z13.31 negative PHQ2 screening at today's visit Chronic ki dney disease stage 3 [id number] N18.30 followed by renal and doing very [...] 06/06/2023 2 [place] Hector Hernández Isaiah [id number] Hector Isaiah 06/06/2023 1 [place] Hector Hernández Isaiah [id number] V93 Hector Isaiah 08/17/2023 2 [place] Hector Hernández Isaiah [id number] Hector Isaiah 08/17/2023 1 [place] Hector Hernández Isaiah [id number] V93 Hector Isaiah 10/19/2023 2 [place] Hector Hernández Isaiah [id number] Hector Isaiah 10/19/2023 1 [place] Hector Hernández Isaiah [id number] V93 Hector Isaiah 02/08/2024 2 [place] Hector Hernández Isaiah [id number] Hector Isaiah 02/08/2024 1 [place] Hector Hernández Isaiah [id number] V93 Hector Isaiah 08/13/2024 2 [place] [facility] Hector Colon [id number] Hector Colon 08/13/2024 1 [place] [facility] Hector Colon [id number] V93 Hector Colon Notes Date Note Type Note Provider Name and Address Organization Details Recorded Time 4 text/htm l Pre-OpReported bypatient.Surgery to be Performed:carpal tunnel surgery (bilaterally) and both elbows (biopsy) with Dr. Colin at [facility] [place] [place] Severity:severe Risk Factorsno cognitive impairment; no functional [...] Support:adequate assistance at home () cleared by translator and interpreter and alteration inspector SAI PIERCE [address] [place], [address], [facility] 06/06/2023 10:36:13 4 text/htm [...] should be restarted Garry Valdez DO [address] [facility], [place], [address], [facility] 08/17/2023 11:35:26 4 text/htm [...] controlled no bleeding Garry Valdez DO [address] [place], [address], [facility] 10/19/2023 14:23:32 4 text/htm l here for rechk and is doing jessica MTX and recent lab shows ongoing anemia creat is still ok overallarhtritis is bothering himcrohns is quiet ]'gout has been the issue uric acid is 7.2 Garry Valdez DO [address] [place], [address], [facility] 02/09/2024 23:02:06 5 text/htm [...] change in meds Garry Valdez DO [address] [place], [address], [facility] 08/13/2024 15:28:54
[2024-10-01 08:54] VITALS: PULSE 54; O2SAT 97; BMI 45.5
--- NOTE | 2024-10-01 08:54 | MHC.OFFVIS ---
Vital Signs 10/01/24 08:54 Height 5 ft 11 in Weight 326 lb 4.546 oz BMI 45.5 Pulse 54 Pulse Source Pulse Oximeter Pulse Oximetry (%) 97 Intake Visit Reasons: 6 months f/u Intake Note: Hector presents in the office as as 6 month follow up. CC: States there is no concerns today. Company Controller Required: No Allergies tramadol Allergy (Mild, Verified 10/01/24 08:55) Dizziness HPI HPI 6 months f/u: Details: 69 yr old m here for f/u for crohns INDEX visit-- he had loose stools for 3 months he noted it was worse when he was started on meloxicam and naprosyn and after he stopped it got better but he still has the loose stools 1-2 times/day he denies blood in stool has a lot of gas and gurgles no nausea or vomtiing appetite is variable weight is gone down 20# but seems to have plateued deneis abdo pain denies fevers or chillss no ABx last few months PCP checked c diff 12/2018 and was neg, stool c/s neg and o/p neg ?he had partial colectomy for diverticulitsi he never had colonoscopy. Colonoscopy/EGD 03/2020--- atrophic gastritis, esophagitis, duodenitis, colon granular with erythema, bx with inactive and active colitis/ileiits, granuloma seen, gastritis, esophagitis commenced on mesalamine, but changed to budesonide due to high fecal nia fecal nia was 1146 c diff neg 12/2018 panc elastase 382 at f/u 07/2019:::::: diarrhea had improved goes to toilet once a day, usu formed, but soft,, not runny He had rising CRP with suspected inflammatory arthropathy despite entyvio, so changed to humira with increased dose eventually to q1week due to break thru sx Humira was increased but he still had sx with rising calprotectin, so changed back to entyvio, he had no antibodies so 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 Oropharynx clear. Moist mucous membranes. Conjunctivae appear well perfused. No thyroid mass. CHEST: Chest wall is nontender. HEART: Regular rate and rhythm without murmurs. LUNGS: Clear to auscultation bilaterally. ABDOMEN: Soft, positive bowel sounds, nontender, no organomegaly.no flank tenderness, scar noted from prior surgery SKIN: No rash, no excessive bruising, petechiae, or purpura. NEUROLOGIC: Cranial nerves II-XII intact without motor/sensory deficit. no synovitis in hands A/P: 1. Crohn''s disease of both small and large intestine without complication 2. arthropathy, related to crohns, possible degenerative disease as well, on MTX, carpal tunnel syndrome s/p surgery 3/ anemia of chronic disease related to crohns and arthropathy, MTX usage PLAN: 1/ cont with MTX, being monitored by Rheum 2/ cont with entyvio, 3/ colonoscopy but he refuses, explained risks of not screening but he does agree to cologuard --if pos we will rediscuss [facility] Medical History COVID-19 Claustrophobia Arthritis Atrial septal defect Atrial fibrillation Gouty tophi of joint Restrictive lung disease Cervical spondylosis Epidermal cyst Essential hypertension Chronic right heart failure Crohn's disease TIFFANY on CPAP Morbid obesity Surgical History Hx of carpal tunnel repair History of colon resection History of excision of epidermal inclusion cyst (~03/27/21) History of esophagogastroduodenoscopy (EGD) Status post surgical atrial septal defect closure History of colonoscopy Family History Father Hx of Crohn's disease Cancer Mother Hx of type 2 diabetes mellitus Social History Are you a primary daycare provider to a significant other at home: No Do you presently have visiting nurse or other home services: No Alcohol intake: never Comment: counts correct Patient Tobacco Use Status: Former Tobacco user Tobacco use type: Cigarette Years Smoked: 10 +/- Current occupational status: retired Current occupation: right hand dominant Physical Exam Vital Signs: Last Vital Signs Pulse 54 10/01/24 08:54 Pulse Ox 97 10/01/24 08:54 BMI result Body Mass Index 45.5 Assessment & Plan Assessment & Plan (1) Crohn's colitis: Code(s): K50.10 - Crohn's disease of large intestine without complications Category: Medical Plan: as above Orders: Referrals Cologuard Test Z12.11 - Encounter for screening for malignant neoplasm of colon, Z12.12 - Encounter for screening for malignant neoplasm of rectum Coding Level of Care Code Est Pt Level 3 (78425) Diagnoses Crohn's colitis K50.10
--- OUTSIDE RECORDS SUMMARY | 2024-10-01 08:54 | XMS_ITS | Patient Health Record ---
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) Active confirmed Problem Acquired hammer toe of right foot (2946366464632905 ) Other hammer toe(s) (acquired), right foot (M20.41) Active confirmed Problem Acquired hammer toe of left foot (7636402621691272 ) Other hammer toe(s) (acquired), left foot (M20.42) Active confirmed Problem Osteoarthritis of midtarsal joint of left foot (5124636126615245 ) Osteoarthritis of midtarsal joint of left foot (M19.072) Active confirmed Problem Osteoarthritis of midtarsal joint of right foot (8109589639866131 ) 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 Vital Signs Blood pressure diastolic 70 mm Hg 09/10/2024 Height 5 ft 11 in in 09/10/2024 Blood pressure systolic 130 mm Hg 09/10/2024 Weight 327 lbs 09/10/2024 BMI 45.6 kg/m2 09/10/2024 Encounters Encounter Location Date Provider Diagnosis [facility] [address] [place] [address] 09/10/2024 Daisy Silva Pain in left foot [...] 3V 03/27/2015 Next Appt Details Provider Name:Daisy Bartlett tobias, 09/12/2025 11:15:00 AM, [address] [place] [address], [phone], Insurance Providers Payer Name Payer Address Payer Phone Subscriber Number Group Number Insured Name Patient Relationship to Insured Coverage Start Date Coverage End Date Medicare National [employer] [address] [place] [address] [id number] Hector Colon Self - patient is the insured Medical (General) History Medical History History ICD Code transfusions diverticulosis chicken pox back, hip, knee pain chron's Surgical History Surgery Date(Month/Year) colon/intestinal surgery heart surgery unspecified kymberly
== END 2024-10-01 09:07 | disposition home or self-care (01) ==
LOC: HO.HGI 08:47
PROVIDERS: PCP Internal Medicine; Visit Provider Internal Medicine Gastroenterology
DX: K50.10 Crohn's disease of large intestine without complications (principal)
CPT/HCPCS: 99213

== ENCOUNTER → 2024-10-01 08:46 | Outpatient (BNVA) | payer MEDICARE, MEDICAID, SELFPAY | PROVIDERS: PCP Internal Medicine; Visit Provider Internal Medicine Gastroenterology | DX: K50.10 Crohn's disease of large intestine without complications (principal) | CPT/HCPCS: 99212 ==

== ENCOUNTER 2024-10-29 11:31 | Outpatient (REF) | payer MEDICARE, MEDICAID, SELFPAY ==
--- OUTSIDE RECORDS SUMMARY | 2024-10-29 13:07 | XMS_ITS ---
Author Organization [facility] Address [address] [place] [address] Care Team Providers Care Chief Relay Tester Name Role Phone Garry Graves MD Primary Care Provider Daisy George Unavailable [phone] Solomon Ventura [phone] Encounters Encounter Location Date Provider Diagnosis [address] [address] 08/30/2024 Solomon Ventura Plan Of Treatment Next Appt Details Provider Name:Daisy collado, 09/12/2025 11:15:00 AM, [address] [place] [address], [phone], Progress Notes * Hector COLON KDOB:[birth year] (69 yo M)Acc No.[id number]:08/30/2024 Progress Note Patient:?SERA Hector Edgar Provider:?Solomon Ventura DPM :1955???Age:69 Y???Sex:Male Narciso e:08/30/2024 Address:[address] [place] [phone] Pcp:Garry Graves MD Subjective: * Chief Complaints: [...] DPM Date:? 025 Generated for Capo raman/Davidson/Brenden on:?10/29/2024 01:07 PM EDT
[2024-10-29 14:15] LABS: Hematocrit 32.1 % (42.0-52.0); Hemoglobin 10.7 g/dl (14.0-18.0); Mean Corpuscular HGB Conc 33.3 g/dl (31.0-36.0); Mean Corpuscular Hemoglobin 31.7 pg (27.0-33.0); Mean Platelet Volume 11.7 fL (9.4-12.4); Platelet Count 168 X10*3/uL (160-400); Red Blood Count 3.38 X10*6/uL (4.60-5.80); Red Cell Distribution Width 16.9 % (11.0-16.0); White Blood Count 5.3 X10*3/uL (4.8-10.8)
[2024-10-29 14:40] LABS: Alanine Aminotransferase 10 U/L (0-40); Albumin Level 4.7 g/dL (3.5-5.0); Alkaline Phosphatase 88 U/L (39-117); Anion Gap 13 (12-20); Aspartate Amino Transferase 42 U/L (5-37); Bilirubin Total 1.1 mg/dL (0.0-1.0); Blood Urea Nitrogen 39 mg/dL (9-16); Calcium 9.8 mg/dL (8.4-10.2); Carbon Dioxide 27 mmol/L (22-29); Chloride 106 mmol/L (96-108); Estimated Glomerular Filt Rate 39; Glucose Random 121 mg/dL (60-115); Potassium 4.2 mmol/L (3.3-5.1); Sodium 142 mmol/L (135-145); Total Protein 7.5 g/dL (6.5-8.0); Uric Acid 5.3 mg/dL (3.4-7.0)
[2024-10-29 14:46] LABS: Vitamin D 25-OH Total 44.6 ng/mL (>30)
[2024-10-29 16:22] LABS: Parathyroid Hormone Intact 91.2 pg/mL (8.7-77.1)
== END 2024-10-29 11:32 | disposition home or self-care (01) ==
LOC: HO.WFDLDS 11:31
PROVIDERS: Visit Provider Internal Medicine Hypertension Specialist
DX: N18.31 Chronic kidney disease, stage 3a (principal)
CPT/HCPCS: 36415; 80053; 82306; 83970; 84550; 85027

== ENCOUNTER 2024-11-12 11:23 | Outpatient (AMB) | payer MEDICARE, MEDICAID, SELFPAY ==
--- OUTSIDE RECORDS SUMMARY | 2024-08-30 08:00 | XMS_ITS ---
Author Organization [facility] Address [address] [place] [address] Care Team Providers Care Soaking Pits Supervisor Name Role Phone Garry Graves MD Primary Care Provider Daisy George Unavailable [phone] Solomon Ventura [phone] Encounters Encounter Location Date Provider Diagnosis [address] [address] 08/30/2024 Solomon Ventura Plan Of Treatment Next Appt Details Provider Name:Daisy collado, 09/12/2025 11:15:00 AM, [address] [place] [address], [address], Progress Notes * SERA Hector KDOB:[birth year] (69 yo M)Acc No.[id number]:08/30/2024 Progress Note Patient: Hector AJ Provider: Teresa Ventura DPM :1955 A ge:69 Y S ex:Male Date:08/30/2024 Address:[address] [place] [address] Pcp:Garry Graves MD Subjective: * Chief Complaints: [...] 08/30/2024 Generated for Capo raman/Davidson/Brenden on: 0 11/12/2024 12:17 PM EDT
[2024-11-12 11:34] VITALS: BP 138/56; PULSE 62; O2SAT 97; BMI 45.9
--- NOTE | 2024-11-12 11:34 | HO.NEPHOV_ITS ---
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 Required: No Accompanied by: Spouse Allergies tramadol Allergy (Mild, Verified 11/12/24 11:36) Dizziness Medication List - Last Reconciled 11/12/24 by Olegario Diggs MD acetaminophen ER (Tylenol Arthritis Pain) 1,300 mg PO Q8H allopurinol 450 mg (1.5 x 300 mg) PO DAILY 90 days amlodipine 10 mg PO QAM apixaban (Eliquis) 5 mg PO BID ferrous sulfate 324 mg PO DAILY folic acid 1 mg PO DAILY furosemide 80 mg PO QAM insulin syringe,safety needle (BD SafetyGlide Insulin Syringe) USE ONCE WEEKLY TO INJECT METHOTREXATE losartan 100 mg PO QAM methotrexate sodium 15 mg (0.6 mL) subcut QWEEK 90 days multivitamin 1 tab PO DAILY pantoprazole 40 mg PO QAM afaklmil-lsru-hzepu-oreg-capry 100 mg-150 mg- 50 mg-150 mg 1 cap PO DAILY vedolizumab (Entyvio) 300 mg IV Q8W HPI Comments Details: Sheyla is a pleasant 68-year-old man with a history of longstanding hypertension and Crohn's disease who was found to have recent elevation serum creatinine. Back in 2022 serum creatinine was around 1.05-1.17 mg/dL. Since June of 2023 there has been a gradual increase in serum creatinine and the recent creatinine was 1.55 as of 04/10/2024. He is on Lasix 80 mg once a day. There has been no recent change in antihypertensive medications. He has a history of Crohn's disease. 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 He is currently on methotrexate. History of gout and he is on allopurinol. History of restrictive lung disease History of obstructive sleep apnea on CPAP. History of moderate right heart failure by echocardiogram Does not take any NSAIDs or other nephrotoxic agents. 11/12/24 The patient is a 62-year-old male presenting with anemia. He underwent a colonoscopy and upper endoscopy due to anemia, during which polyps were removed and found to be benign. Further investigations did not identify any bleeding source. The patient experienced an asthma exacerbation due to environmental changes, which was treated with an inhaler, and his symptoms have since resolved. He is currently on iron supplements and plans to have comprehensive blood tests next month, including kidney function tests. [facility] Medical History COVID-19 Claustrophobia Arthritis Atrial septal defect Atrial fibrillation Gouty tophi of joint Restrictive lung disease Cervical spondylosis Epidermal cyst Essential hypertension Chronic right heart failure Crohn's disease TIFFANY on CPAP Morbid obesity Surgical History Hx of carpal tunnel repair History of colon resection History of excision of epidermal inclusion cyst (~03/27/21) History of esophagogastroduodenoscopy (EGD) Status post surgical atrial septal defect closure History of colonoscopy Family History Father Hx of Crohn's disease Cancer Mother Hx of type 2 diabetes mellitus Social History Are you a primary student career development specialist to a significant other at home: No Do you presently have visiting nurse or other home services: No Alcohol intake: never Comment: counts correct Patient Tobacco Use Status: Former Tobacco user Tobacco use type: Cigarette Years Smoked: 10 +/- Current occupational status: retired Current occupation: right hand dominant Physical Exam Vital Signs: Last Vital Signs Pulse 62 11/12/24 11:34 BP 138/56 L 11/12/24 11:34 Pulse Ox 97 11/12/24 11:34 Oxygen Delivery Method Room Air 11/12/24 11:34 BMI result Body Mass Index 45.9 Comfortable Neck supple no JVD. Lungs entry equal no rales. Heart S1-S2 heard no gallop or rub. Abdomen soft nontender. Neuro alert awake oriented. No asterixis. Extremities no edema. Results Reviewed Nephrology Results: Hgb, (14.0-18.0) 10.7 g/dl L 10/29/24 WBC, (4.8-10.8) 5.3 X10*3/uL 10/29/24 Plt Count, (160-400) 168 X10*3/uL 10/29/24 Sodium, (135-145) 142 mmol/L 10/29/24 Potassium, (3.3-5.1) 4.2 mmol/L 10/29/24 Chloride, (96-108) 106 mmol/L 10/29/24 Carbon Dioxide, (22-29) 27 mmol/L 10/29/24 BUN, (9-16) 39 mg/dL H 10/29/24 Creatinine, (0.5-1.4) 1.74 mg/dL H 10/29/24 Calcium, (8.4-10.2) 9.8 mg/dL Δ 10/29/24 PTH Intact, (8.7-77.1) 91.2 pg/mL H 10/29/24 Urine Protein, (Neg-Trace) Negative mg/dL 07/26/24 Renal US 05/19/24 Assessment & Plan Assessment & Plan (1) CKD (chronic kidney disease): Code(s): N18.9 - Chronic kidney disease, unspecified Category: Medical Qualifiers: Chronic kidney disease stage: stage 3 (moderate) Chronic kidney disease stage 3 subtype: stage 3a (GFR 45-59) Qualified Code(s): N18.31 - Chronic kidney disease, stage 3a Plan 68-year-old man with chronic kidney disease and superimposed JOSE GUADALUPE in the setting of longstanding hypertension, Crohn's disease, obesity. Obstructive sleep apnea and right heart failure. He has CKD stage 3. Mild bump in creatinine No evidence of obstruction based on ultrasonogram. 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 The bump in creatinine he has not occurred until 2023. He is on high dose of diuretics. Clinically appears euvolemic. At present I have we will continue the current dose of diuretics. Encouraged to stay on low-sodium diet. Continue to avoid nephrotoxic agents including NSAIDs. Today no changes were made. Continue to monitor renal function closely and continue to avoid nephrotoxic agents. Orders: Orders Basic Metabolic Panel 4 Weeks N18.31 - Chronic kidney disease, stage 3a Coding Level of Care Code Est Pt Level 4 (08417) Diagnoses Stage 3a chronic kidney disease N18.31 Chronic kidney disease stage: stage 3 (moderate) Chronic kidney disease stage 3 subtype: stage 3a (GFR 45-59)
== END 2024-11-12 11:51 | disposition home or self-care (01) ==
LOC: HO.HKA 11:24
PROVIDERS: PCP Internal Medicine; Visit Provider Internal Medicine Hypertension Specialist
DX: N18.31 Chronic kidney disease, stage 3a (principal)
CPT/HCPCS: 99214

== ENCOUNTER → 2024-11-12 11:23 | Outpatient (BNVA) | payer MEDICARE, MEDICAID, SELFPAY | PROVIDERS: PCP Internal Medicine; Visit Provider Internal Medicine Hypertension Specialist | DX: I13.0 Hypertensive heart and chronic kidney disease with heart failure and stage 1 through stage 4 chronic kidney disease, or unspecified chronic kidney disease (principal); N18.31 Chronic kidney disease, stage 3a; I50.810 Right heart failure, unspecified; K50.90 Crohn's disease, unspecified, without complications; Z79.631 Long term (current) use of antimetabolite agent; Z79.899 Other long term (current) drug therapy | CPT/HCPCS: 99212 ==

== ENCOUNTER 2024-11-28 11:57 | Outpatient (AMB) | payer MEDICARE, MEDICAID, SELFPAY ==
--- OUTSIDE RECORDS SUMMARY | 2024-08-30 08:00 | XMS_ITS ---
Author Organization [facility] Address [address] [place] [address] Care Team Providers Care Instrument Adjuster Name Role Phone Garry Graves MD Primary Care Provider Daisy George Unavailable [phone] Solomon Ventura [phone] Encounters Encounter Location Date Provider Diagnosis [address] [address] 08/30/2024 Solomon Ventura Plan Of Treatment Next Appt Details Provider Name:Daisy collado, 09/12/2025 11:15:00 AM, [address] [place] [address], [address], Progress Notes * SERA Hector KDOB:[birth year] (69 yo M)Acc No.[id number]:08/30/2024 Progress Note Patient: Hector AJ Provider: Teresa Ventura DPM :1955 A ge:69 Y S ex:Male Date:08/30/2024 Address:[address] [place] [address] Pcp:Garry Graves MD Subjective: * Chief Complaints: * * Medical History: Objective: * Vitals: Assessment: Plan: * Treatment: * Images: * The named appointment provid er may or may not be the originator of this progress note, and it is not deemed complete until electronically signed by the appointment provider. Sign off status: Pending * Provider: Teersa Ventura DPM Date: 0 08/30/2024 Generated for Capo raman/Davidson/Brenden on: 0 11/28/2024 01:02 PM EDT
--- NOTE | 2024-11-28 12:47 | MHC.OFFVIS ---
Vital Signs 11/28/24 12:48 Height 5 ft 11 in Weight 326 lb 4.546 oz BMI 45.5 BP 110/62 Blood Pressure Location Lt brachial Position Sitting Pulse 60 Pulse Source Pulse Oximeter Intake Visit Reasons: 6m follow up Allergies tramadol Allergy (Mild, Verified 11/12/24 11:36) Dizziness Medication List - Last Reconciled 11/28/24 by Sathya Chun MD acetaminophen (Acetaminophen Extra Strength) 500 mg PO QNOON acetaminophen ER (Tylenol Arthritis Pain) 1,300 mg PO BID allopurinol 450 mg (1.5 x 300 mg) PO DAILY 90 days amlodipine 10 mg PO QAM apixaban (Eliquis) 5 mg PO BID ferrous sulfate 324 mg PO DAILY folic acid 1 mg PO DAILY furosemide 80 mg PO QAM insulin syringe,safety needle (BD SafetyGlide Insulin Syringe) USE ONCE WEEKLY TO INJECT METHOTREXATE losartan 100 mg PO QAM methotrexate sodium 15 mg (0.6 mL) subcut QWEEK 90 days multivitamin 1 tab PO DAILY pantoprazole 40 mg PO QAM sodium,potassium,mag sulfates 17.5-3.13-1.6 gram (Suprep Bowel Prep Kit) DILUTE each bottle with 16oz of water; drink first bottle 4pm evening before procedure AND second bottle at 10pm; follow each bottle with at least 32 oz.of water within 1 hour after each bottle turmeric 400 mg PO DAILY vedolizumab (Entyvio) 300 mg IV Q8W HPI Comments Details: Hector returns for follow-up He has various issues including chronic right heart failure, atrial fibrillation, PVCs among others. Overall, he states he feels fine. Denies any complaints like angina or shortness of breath or palpitations or in fact anything cardiac sounding. Overall, getting along fine. He apparently needs to go for colonoscopy. [facility] Medical History (Updated 11/28/24 @ 13:14 by Sathya Chun MD) Diverticulitis Elevated cholesterol Murmur COVID-19 Claustrophobia Arthritis Atrial septal defect Atrial fibrillation Gouty tophi of joint Restrictive lung disease Cervical spondylosis Epidermal cyst Essential hypertension Chronic right heart failure Crohn's disease TIFFANY on CPAP Morbid obesity Surgical History (Updated 11/28/24 @ 10:58 by Valery Lenz RN) S/P LASIK surgery Hx of carpal tunnel repair History of colon resection History of excision of epidermal inclusion cyst (~03/27/21) History of esophagogastroduodenoscopy (EGD) Status post surgical atrial septal defect closure History of colonoscopy Family History Father Hx of Crohn's disease Cancer Mother Hx of type 2 diabetes mellitus Social History Are you a primary healthcare representative to a significant other at home: No Do you presently have visiting nurse or other home services: No Alcohol intake: never Comment: counts correct Patient Tobacco Use Status: Former Tobacco user Tobacco use type: Cigarette Years Smoked: 10 +/- Current occupational status: retired Current occupation: right hand dominant Review of Systems Const Denies weakness ENT Denies dizziness Card Denies chest pain, Denies chest pain with activity, Denies syncope, Denies rapid heart rate, Denies pedal edema, Denies edema, Denies leg edema, Denies lightheadedness, Denies palpitations, Denies dyspnea, Denies dyspnea on exertion and Denies orthopnea Resp Denies cough, Denies dyspnea and Denies dyspnea on exertion GI Denies hematochezia and Denies change in stool character Musc Denies abnormal gait, Denies muscle cramps, Denies muscle weakness, Denies numbness, Denies radiating pain into limb and Denies tingling Neuro Denies abnormal gait, Denies dizziness, Denies syncope, Denies numbness, Denies tingling and Denies weakness Endo Denies palpitations Physical Exam Vital Signs: Last Vital Signs Pulse 60 11/28/24 12:48 BP 110/62 11/28/24 12:48 BMI result Body Mass Index 45.5 Const General: comfortable and no acute distress Orientation/consciousness: patient oriented x3 HEENT Other: Unremarkable Head: Yes normal to inspection Neck Neck: Yes normal visual inspection Chest Chest palpation & inspection: normal inspection of the chest Resp Auscultation: clear to auscultation bilaterally Cardio Palpation: normal PMI Heart sounds: S1 normal heart sound present, S2 normal heart sound present, no gallops, no murmurs and no rubs GI Palpation (GI): Soft to palpation Back/Spine/Pelvis Other: unremarkable Skin General skin exam: no rashes or lesions noted Neuro General: patient oriented x3 Extrem General: Yes normal to inspection Psych Mental Status: mental status grossly normal Office Procedures EKG Details: EKG with atrial fibrillation rate of 57/Min with premature ventricular contractions. [id number], Complete Assessment & Plan Assessment & Plan (1) Persistent atrial fibrillation: Code(s): I48.19 - Other persistent atrial fibrillation Category: Medical Plan: In the last Holter monitor, atrial fibrillation with an average rate of 51/Min. Likely has some conduction system disease. Continue with anticoagulation. (2) PVCs (premature ventricular contractions): Code(s): I49.3 - Ventricular premature depolarization Category: Medical Plan: In the last Holter, PVC burden was about 9.6%. Short runs noted. Not suitable for any medications as he has a propensity for bradycardia. Clinically, not causing any symptoms or cardiomyopathy. (3) Chronic right heart failure: Code(s): I50.812 - Chronic right heart failure Category: Medical Plan: In the echocardiogram, LVEF 60-65%. No significant valvular issues. [id number] decreased right ventricular function. Cardiac catheterization shows normal coronary arteries. Stable, on diuretics. (4) Status post surgical atrial septal defect closure: Comment: age 10 for repair ASD & age 19 for collapsed valve repair Code(s): Z98.890 - Other specified postprocedural states Category: Surgical Plan: In the 1960s, he had ASD closure and in the 70s, pulmonary valvulotomy. No recent concerns. (5) Essential hypertension: Code(s): I10 - Essential (primary) hypertension Category: Medical Plan: Stable. He is already on Losartan as well as Amlodipine. Of note, also has CKD. (6) TIFFANY on CPAP: Comment: KNOWN CASE OF SEVERE OBSTRUCTIVE SLEEP APNEA. HE IS BEING TREATED WITH BILEVEL CPAP 24-20 AND IS VERY COMPLIANT. HIS SLEEP IS MUCH BETTER. Code(s): G47.33 - Obstructive sleep apnea (adult) (pediatric); Z99.89 - Dependence on other enabling machines and devices Category: Medical Plan: Continue CPAP. (7) Preoperative cardiovascular examination: Code(s): Z01.810 - Encounter for preprocedural cardiovascular examination Category: Medical Plan: Plan for colonoscopy noted. Due to history of atrial fibrillation with slow ventricular response, there is a risk of bradycardia with anesthesia/colonoscopy. We discussed this in detail today. Hence minimize sedation/duration of anesthesia for the procedure. May hold Eliquis for 2 days prior to procedure. Plan Discussed with significant other. Coding Level of Care Code Est Pt Level 4 (58476) Complex EM visit Add On G2211 Diagnoses Persistent atrial fibrillation I48.19 PVCs (premature ventricular contractions) I49.3 Chronic right heart failure I50.812 Status post surgical atrial septal defect closure Z98.890 Essential hypertension I10 TIFFANY on CPAP G47.33; Z99.89 Preoperative cardiovascular examination Z01.810 CPT Codes EKG - CPT: 58775-[id number], Complete ([id number])
[2024-11-28 12:48] VITALS: BP 110/62; PULSE 60; BMI 45.5
--- OUTSIDE RECORDS SUMMARY | 2024-11-28 13:03 | XMS_ITS | Data Portability ---
Author Organization [facility] Patient Home Address [address] [place] [address] Assessment Encounter Date Assessment Date Assessment LastModified by Organization Details LastModified Time 08/17/2023 08/17/2023 [address] [place] [address] (CT TECH) MDM MODERATE MUST MEET 2 OUT OF [...] COVERED Not available 08/17/2023 11:35:12 10/19/2023 10/19/2023 [address] [place] [address] (CT TECH) MDM HIGH MUST MEET 2 OUT OF [...] reduce health risks and promote healthy living. [email or web address] Not available 02/08/2024 16:33:32 08/13/2024 08/13/2024 [id number] [place] [address] (CT TECH) : MDM LOW MUST MEET 2 OF [...] Organization Details Last Modified Time Details Appointments Pre-Op 2024 11:30A M DR VALDEZ Not available Not available Not available ANNUAL EXAM 2024 11:00A M DR VALDEZ Not available Not available Not available Lab None recorded. Referral None recorded. Procedures None recorded. Surgeries None recorded. Imaging None recorded. Medication Orders amoxicill in 875 mg-potass ium clavulana te 125 mg tablet 2023 024 [email or web address] [id number], [address] [place], [place], [id number], 10/19/2023 13:55:23 Patient TargetsNo targets recorded. Patient Instructions Encounter Date Encounter Id Patient Instructions Last Modified By Organization Details Last Modified Time 08/17/2023 [id number] pulse oximetry* Not available 08/17/2023 11:13:27 10/19/2023 [id number] When You Want to Lose Weight: Care Instructions Not available 10/19/2023 14:23:11 crohn's disease: care instructions Not available 10/19/2023 14:23:11 heart failure: care instructions Not available 10/19/2023 14:23:11 learning about heart failure Not available 10/19/2023 14:23:11 02/08/2024 [id number] pulse oximetry* Not available 02/09/2024 23:02:02 sleep apnea: car e instructions Not available 02/09/2024 23:02:02 08/13/2024 [id number] medicines to avoid with kidney disease: care instructions Not available 08/13/2024 15:28:39 Reason for Referral None Reported. Results Created Date Observation Date Name Description Value Unit Range Abnormal Flag Note LastModifiedBy Organization Detail LastModifiedTime 08/17/19 24 08/17/2023 pulse oxime try* Result 97 Not Available [facility] [address] [facility] [address], [place], [address], 08/15/2023 14:00:34 02/08/20 24 02/08/2024 pulse oxime try* Result 97 Not Available [facility] [address] [facility] [address], [place], [address], 02/06/2024 12:00:52 06/28/19 24 06/24/2023 , [facility] ardio gram No observ ation record ed. [facility] [place], [place], [address], 08/17/2023 10:58:21 Result Notes None recorded. Problems Name Problem SNOMED Code Status Onset Date Resolution Date Notes Provider Name and Address Organization Details Recorded Time Crohn's disease 17499320 Active 2019 Garry Valdez DO [address] [facility], [place], [address], [facility], [place], [facility] 0 11:51:44 Degenerati on of lumbar interverte bral disc 67699692 Active 2020 Garry Valdez DO [address] [place] [address], [address], [facility] [place] 1 10:47:53 Osteoarthr itis 534845086 Active 2021 Garry Valdez DO [address] [place] [address], [address], [facility], [place], operated by [facility] 2 15:14:41 Osteoarthr itis of joint of hand 91240793 Active 2022 SAI PIERCE [address] [place] [address], [address], [facility] [place], operated [facility] 3 15:28:27 COVID-19 513146334 Active 2023 Garry Valdez DO [address] [place] [address], [address], [facility] [place], operated [facility] 4 13:31:54 Chronic tophaceous gout 88152624 Active 2023 Garry Valdez DO [address] [place] [address], [address], [facility] [place], operated [facility] 4 11:11:39 Acute right otitis media 828058980 Active 2023 Garry Valdez DO [address] [place] [address], [address], [facility] [place], operated [facility] 4 11:34:54 Psoriatic arthritis 411487343 Active 2023 Garry Valdez DO [address] [place] [address], [address], [facility] [place], operated [facility] 4 14:16:12 Chronic kidney disease stage 3 389987253 Active 2024 Garry Valdez DO [address] [place] [address], [address], [facility] [place], operated [facility] 5 15:28:23 Morbid obesity 490376604 Active 2017 Susan Florez [facility] 8 08:45:56 Congestive heart failure 14027963 Active 2017 Susan Florez [facility] 8 08:45:59 Obstructiv e sleep apnea syndrome 15495137 Active 2017 Susan Florez [facility] 8 08:46:05 Hypertensi ve disorder 07762444 Active 2017 Susan Florez [facility] 8 08:46:10 Problem Notes None recorded. Procedures Surgical History Date Name Laterality Status Provider Name and Address Organization Details Recorded Time 019 Corticosteroid Injection completed Garry Valdez DO [address] [place] [address], [address], [facility] 01/08/2019 10:11:59 Imaging Results None recorded. Procedure Notes None recorded. Medical Equipment None Reported. Allergies Allergen ID Allergen Name Allergen Category Reaction Reaction Severity Criticality Documentation Date Start Date Code Code System Note Provider Name and Address Organization Details Recorded Time 3160 meloxicam medicatio n diarrhea severe Not available 11/20/20182018 58361 RxNorm Garry Valdez DO [address] [place] [address], [address], [facility] 9 17:32:39 4698 tramadol medicatio n dizziness moderate Not available 01/06/2021 01859 RxNorm SAI PIERCE [address] [place], [address], [facility] [place] 1 11:05:59 Medications Name Sig Start Date [...] with needle 1 mL 29 gauge x 16 USE ONCE WEEKLY TO INJECT METHOTREX ATE [...] in Arterial blood by Pulse oximetry Systolic And Diastolic Provider Name and Address Organization Details Last Updated DateTime 4 177.8 cm 45.3 kg/m2 880538. 19 g 67 /min 97 % 97 % 140/70 mm[Hg] [facility] 4 10:19:26 Date Recorded Body height Body mass index (BMI) Body weight Heart rate Oxygen saturation Oxygen saturation in Arterial blood by Pulse oximetry Systolic And Diastolic Provider Name and Address Organization Details Last Updated DateTime 4 177.8 cm 44.9 kg/m2 477446. 41 g 55 /min 97 % 97 % 140/60 mm[Hg] Jeane Peralta [facility] 4 10:44:51 Date Recorded Body height Body mass index (BMI) Body weight Heart rate Respiratory rate Oxygen saturation Oxygen saturation in Arterial blood by Pulse oximetry Systolic And Diastolic Provider Name and Address Organization Details Last Updated DateTime 4 177.8 cm 44.9 kg/m2 147895. 41 g 52 /min 18 /min 99 % 99 % 132/66 mm[Hg] João Joyner [facility] 4 13:57:16 Date Recorded Body height Body mass index (BMI) Body weight Heart rate Oxygen saturation Oxygen saturation in Arterial blood by Pulse oximetry Systolic And Diastolic Systolic And Diastolic Provider Name and Address Organization Details Last Updated DateTime 4 177.8 cm 44.9 kg/m2 450001. 41 g 54 /min 97 % 97 % 140/70 mm[Hg] 132/70 mm[Hg] Jeane Peralta [facility] 4 16:35:02 Social History Question Answer Notes LastModified by Organizat ion Details LastModified Time Tobacco Smoking Status [facility]oker Not Available [facility] 03/18/2020 03:36:24 What Was The Date Of Your Most Recent Tobacco Screening? 02/08/2024 [email or web address] Information not available 02/08/2024 Sex: Unknown Functional [...] Time pneumococcal polysaccharide PPV23 0 completed Nathalie burgess [facility] 11/25/2020 11:26:53 COVID-19, mRNA, LNP-S, PF, 30 mcg/0.3 mL dose 1 completed Nathalie Balicki null, [facility] 11/25/2020 11:27:04 COVID-19, mRNA, LNP-S, PF, 30 mcg/0.3 mL dose 1 completed Nathalie Balicki null, [facility] 11/25/2020 11:27:11 Hep B, unspecified formulation 0 completed Nathalie Balicki null, [facility] 11/25/2020 11:27:24 Hep B, unspecified formulation 0 completed Nathalie Balicki null, [facility] 11/25/2020 11:27:31 Hep B, unspecified formulation 1 completed Nathalie Balicki null, [facility] 11/25/2020 11:27:37 Hep A, unspecified formulation 0 completed Nathalie Balicki [facility] 11/25/2020 11:27:57 Hep A, unspecified formulation 0 completed Nathalie Balicki null, [facility] 11/25/2020 11:28:04 Hep A, unspecified formulation [facility] 11/25/2020 11:28:12 COVID-19, mRNA, LNP-S, PF, 30 mcg/0.3 mL dose 1 completed Susan Florez [facility] 01/06/2021 09:14:20 Influenza, split virus, quadrivalent, preservative 1 completed Susan burgess [facility] 08/24/2021 10:36:11 [facility]ap 9 [facility] 08:11:56 Past Encounters Encounter ID Performer Location Encounter Start Date Encounter Closed Date Diagnosis/Indication Diagnosis SNOMED-CT Code Diagnosis ICD10 Code Diagnosis Note [id number] Garry Valdez [facility] [address] [facility],[place] [address] 09/13/2017 10:56:44 09/13/2017 16:01:17 Hypertensive disorder 55149655 I10 bp stable cont same meds Congestive heart failure 67202773 I50.9 stable and without exacerbati ons is euvolemic Tenosynovi tis of wrist 086648251 M65.839 [id number] Garry Valdez [facility] [address] [facility], [place] [address] 01/25/2018 09:33:47 01/25/2018 10:14:56 Morbid obesity 293144363 E66.01 chronic illness and not working on it Hypertensive disorder 38 962306 I10 bp stable cont same meds Congestive heart failure 86508693 I50.9 stable and without exacerbati ons is euvolemic Obstructiv e sleep apnea syndrome 67794185 G47.33 stable and cont on jhsi cpap Screening for cardiovascular system disease 237878055 Z13.6 Edema of l ower extremity 026120823 R60.0 cont two tabs of lasix need to check K+ levels and creat [id number] Garry Valdez [facility] [address] [facility] [place] [address] 05/23/2018 10:33:27 05/23/2018 16:49:35 Morbid obesity 783336520 E66.01 Work on weight loss Acute bronchitis 4449889 2 J20.9 Hypertensive disorder 38 817826 I10 mildly elevated, keep scheduled july appt Obstructiv e sleep apnea syndrome 64332726 G47.33 compliant with CPAP [id number] Garry Valdez [facility] [address] [facility] [place] [address] 08/02/2018 08:56:16 08/02/2018 12:49:34 Obstructive sleep apnea syndrome 42048026 G47.33 stable and cont on jhsi cpap Hypertensive disorder 38 342026 I10 bp stable cont same meds Congestive heart failure 96860840 I50.9 stable and without exacerbati ons is euvolemic Morbid obesity 073422236 E66.01 chronic illness and not working on it Pain of samuel int of wrist 268626338 M25.539 recc refer he will consider appt with dr nation [id number] Garry Valdez DO [facility] [address] [facility],[place] [address] 11/20/2018 16:16:38 11/20/2018 17:38:10 Adverse reaction to drug 81036792 T50.905A severe GI response to daily use of meloxicam that was orderd by specialist will need to take probiotics culturelle Hypertensive disorder 38 363622 I10 bp stable cont same meds Congestive heart failure 61024821 I50.9 stable and without exacerbati ons is euvolemic [id number] Garry Valdez [facility] [address] [facility],[place] [address] 12/27/2018 10:47:48 12/27/2018 13:47:31 Body mass index 40+ - severely obese 959817258 Z68.42 Hypertensive disorder 38 779699 I10 stable Obstructiv e sleep apnea syndrome 16410771 G47.33 uses cpap every night Knee pain 26504622 M25.5 69 right lateral knee pain OA vs tendinitis mendieta consider PT in future [id number] Garry Valdez [facility] [address] [facility],[place] [address] 01/08/2019 09:49:46 01/08/2019 10:20:43 Osteoarthritis of knee 860444282 M17.9 [place] [id number] Garry Valdez [facility] [address] [facility],[place] [address] 02/07/2019 08:53:44 02/07/2019 10:48:03 Hypertensive disorder 06888152 I10 bp stable cont same meds Congestive heart failure 13028825 I50.9 stable and without exacerbati ons is euvolemic echo is done recently and is excellent per verbal report Chronic diarrhea 1857838 09 K52.9 major lab done GI f/u andsierra have colonosc next nov Morbid obesity 279278542 E66.01 with the diarrhea he [place] been losing wgt [id number] Garry Valdez [facility] [address] [facility],[place] [address] 05/07/2019 10:23:47 05/07/2019 10:53:59 Hypertensive disorder 31238902 I10 bp stable cont same meds Congestive heart failure 82316474 I50.9 stable and without exacerbati ons is euvolemic echo is done recently and is excellent per report Obstructiv e sleep apnea syndrome 45283413 G47.33 stable and cont on jhsi cpap Diarrhea 46544130 R19.7 None since colonoscop y Crohn's disease 28015977 K50.90 Biopsy/abd CT of GI showed low grade inflammati on suggestive of Crohn's Seeing GI in one week Daughter has Crohn's [id number] Garry Valdez [facility] [address] [facility], [place] [address] 08/17/2019 09:29:29 08/17/2019 12:16:51 Congestive heart failure 16309241 I50.9 stable and without exacerbati ons is euvolemic echo is done recently and is excellent per report Hypertensive disorder 38 383224 I10 bp stable cont same meds Obstructiv e sleep apnea syndrome 95557544 G47.33 stable and cont on jhsi cpap Microcytic anemia 904359 007 D50.9 will be needing to take iron tab will use wifes MVI wish to get iron studies but he wont go out to get lab [id number] Garry Valdez [facility] [address] [facility], [place] [address] 12/07/2019 08:58:03 12/07/2019 11:52:09 Congestive heart failure 73384222 I50.9 stable and without exacerbati ons is euvolemic echo is done recently and is excellent per report needs to renew his lasix no leg swelling Crohn's disease 57513996 K50.90 Biopsy/abd CT of GI showed low grade inflammati on suggestive of Crohn's Seeing GI in one week Daughter has Crohn's Hypertensive disorder 38 685224 I10 bp stable cont same meds Obstructiv e sleep apnea syndrome 30933053 G47.33 stable and cont on jhsi cpap [id number] Garry Valdez [facility] [address] [facility], [place] [facility] [place] [address] 04/28/2020 08:45:16 04/28/2020 10:57:40 Congestive heart failure 21659973 I50.9 stable and without exacerbati ons is euvolemic echo is done recently and is excellent per report needs to renew his lasix no leg swelling Hypertensive disorder 38 181081 I10 bp stable cont same meds Obstructiv e sleep apnea syndrome 57261443 G47.33 stable and cont on his cpap Morbid obesity 157307127 E66.01 long discussion re prob with his eating states is at 334 Crohn's disease 60838240 K50.90 seen by GI and has been started on HUmira pt is feeling better and will be seeing GI appt in may Garry Valdez [facility] [address] [facility],[place] [address] 11/28/2020 11:06:02 11/28/2020 12:11:18 Hypertensive disorder 10706186 I10 bp stable cont same meds Congestive heart failure 88354594 I50.9 stable and without exacerbati ons is euvolemic echo is done recently and is excellent per report needs to renew his lasix no leg swelling Obstructiv e sleep apnea syndrome 33074099 G47.33 stable and cont on his cpap Hepatitis C screening 41 2377782 Z11.59 Morbid obesity 424339300 E66.01 long discussion re prob with his eating states is at 302 with the weight loss from the crohns Crohn's disease 77351376 K50.90 seen by GI and has been started on Entyvil IV infusion regimen pt is feeling better and will be seeing GI appt 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 3035898661 106 K50.018 we will have him see a rheumatolo gist [id number] Garry Valdez [facility] [address] [facility],[place] [address] 12/10/2020 09:52:05 12/10/2020 11:56:49 Neck pain 10011838 M54.2 will start on msk relaxer and tramadolfu with XR Torticollis 02381599 M43 .6 fu with MSK relaxer [id number] Garry Valdez [facility] [address] [facility],[place] [address] 01/06/2021 09:05:10 01/06/2021 12:01:51 Epidermoid cyst of skin 819897346 L72.3 will fu with general surgeon for removal Degenerati on of cervical intervertebral disc 94017234 M50.30 will fu with PVSS [id number] Garry Valdez [facility] [address] [facility] [place] [address] 03/16/2021 11:22:42 03/16/2021 12:41:23 Low back pain 937981635 M54.59 will fu with XR to start on his low back Abnormal gait 44381375 R 26.9 will fu with order for stand up walker Bursitis o f olecranon of right elbow 3862467346 19515 [address]70[address] Bhardwaj about the pred taper [id number] Garry Valdez [facility] [address] [facility], [place] [address] 04/20/2021 10:25:43 04/20/2021 12:42:30 Hypertensive disorder 76802739 I10 bp stable cont same meds Congestive heart failure 51104290 I50.9 stable and without exacerbati ons is euvolemic echo is done recently and is excellent per report needs to renew his lasix no leg swelling Obstructiv e sleep apnea syndrome 34953172 G47.33 stable and cont on his cpap Crohn's disease 01550681 K50.90 seen by GI and has been started on Entyvil IV infusion regimen pt is feeling better and will be seeing GI appt Degenerati on of lumbar intervertebral disc 63013383 M51.36 Hearing loss 45366323 H9 0.3 will need audiogram 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 1490688248 105 M48.02 following sports med and undergoing PT will follow and obtain an emg nct if worsening as the [place] [id number] Garry Valdez [facility] [address] [facility], [facility] [place] [address] 08/24/2021 10:25:17 08/24/2021 11:40:12 Hypertensive disorder 80123052 I10 bp stable cont same meds Congestive heart failure 77101104 I50.9 stable and without exacerbati ons is euvolemic echo is done recently and is excellent per report needs to renew his lasix no leg swelling Morbid obesity 776837559 E66.01 long discussion re prob with his eating states is at 322 \told him this will lower his life expectancy s Crohn's disease 71079411 K50.90 seen by GI and has been started on Entyvil IV infusion regimen pt is feeling better and will be seeing GI appt [id number] Garry Valdez [facility] [address] [facility], [facility] [address] 12/11/2021 14:47:03 12/11/2021 16:18:04 Hypertensive disorder 57622555 I10 bp stable cont same meds Depression screening 171 250022 Z13.31 negative PHQ2 screening at today's visit Crohn's disease 82025749 K50.90 seen by GI and= is on methotrexa te sq injection pt is feeling better and will be seeing GI appt Congestive heart failure 45475445 I50.9 stable and without exacerbati ons is euvolemic echo is done recently and is excellent per report needs to renew his lasix no leg swelling Osteoarthritis 195256715 M19.90 he is still struggling with the arthralgia [id number] Garry Valdez [facility] [address] [facility], [employer] [place] [address] 04/30/2022 10:54:24 04/30/2022 15:17:59 Congestive heart failure 03284747 I50.9 stable and without exacerbati ons is euvolemic echo is done recently and is excellent per report needs to renew his lasix no leg swelling Hypertensive disorder 38 563716 I10 bp stable cont same meds Osteoarthritis 148230907 M19.90 he is still struggling with the arthralgia encouraged to walk Obstructiv e sleep apnea syndrome 59173767 G47.33 stable and cont on his cpap but wondering about a new device for the chest??? [id number] Garry Valdez [facility] [address] [facility], [place] [address] 11/26/2022 10:17:44 11/26/2022 11:32:27 Congestive heart failure 12025141 I50.9 stable and without exacerbati ons is euvolemic echo is done recently and is excellent per report needs to renew his lasix no leg swelling Hypertensive disorder 38 961181 I10 bp stable cont same meds Morbid obesity 048532471 E66.01 he has lost 8 lbs Crohn's disease 00646499 K50.90 seen by GI and= is on methotrexa te sq injection pt is feeling better and will be following GI appt [id number] Garry Valdez [facility] [address] [facility], [place] [address] 06/06/2023 10:12:51 06/06/2023 10:41:44 Morbid obesity 956330981 E66.01 stable Hypertensive disorder 38 365168 I10 cleared by cardiology Obstructiv e sleep apnea syndrome 92455847 G47.33 stable, no changes Congestive heart failure 88163790 I50.89 stable per cardiology Pre-surger y evaluation 704209842 Z01.818 The patient was seen in the office today for pre-op evaluation . All medical conditions on patient's problem list were addressed and are currently stable, no interventi on needed at this time. Based on history and physical performed, the patient is cleared for surgery. [id number] Garry Valdez [facility] [address] [facility], [place] [address] 08/17/2023 10:37:50 08/17/2023 11:36:58 Crohn's disease 41414155 K50.90 seen by GI and= is on methotrexa te sq injection pt is feeling better and will be following GI appt Congestive heart failure 81405774 I50.89 stable and without exacerbati ons his recent cardiac work up was ecellent including echo and heart cath is euvolemic needs to renew his lasix no leg swelling Hypertensive disorder 38 201281 I10 bp stable cont same meds Morbid obesity 574448575 E66.01 no further wgt loss Chronic to phaceous gout 32998944 M1A.9XX1 Acute righ t otitis media 226651131 H66.91 [id number] Garry Valdez [facility] [address] [facility], [place] [address] 10/19/2023 13:46:51 10/19/2023 14:34:25 Acute right otitis media 197085294 H66.91 has now resolved discussed in depth how TM can get infected Depression screening 171 621386 Z13.31 negative PHQ2 screening at today's visit Hypertensive disorder 38 165541 I10 bp stable cont same meds Degenerati on of lumbar intervertebral disc 58390907 M51.36 still about the same but he is manging Congestive heart failure 82499712 I50.89 stable and without exacerbati ons his recent cardiac work up was ecellent including echo and heart cath is euvolemic needs to renew his lasix no leg swelling Morbid obesity 749602681 E66.01 no further wgt loss Psoriatic arthritis 1563 32926 L40.50 having a hard time getting this controlled hurts to walk any distancedo es have a handicap platehas been on MTX for this Crohn's disease [id number] K50.90 seen by GI and= is on methotrexa te sq injection an stable with Entyvio pt is feeling better and will be following GI appt [id number] Garry Valdez [facility] [address] [facility],[place] [address] 02/08/2024 16:03:32 02/10/2024 08:57:21 Congestive heart failure [id number] I50.89 stable and without exacerbati ons his recent cardiac work up was ecellent including echo and heart cath is euvolemic needs to renew his lasix no leg swelling Psoriatic arthritis [id number] L40.50 having a hard time getting this controlled hurts to walk any distancedo es have a handicap platehas been on MTX for this Obstructiv e sleep apnea syndrome [id number] G47.33 stable and cont on his cpap but wondering about a new device for the chest??? [id number] Garry Valdez [facility] [address] [facility], [place] [address] 08/13/2024 08:38:51 08/13/2024 15:39:07 Congestive heart failure [id number] I50.89 stable and without exacerbati ons his recent cardiac work up was ecellent including echo and heart cath is euvolemic needs to renew his lasix no leg swelling Hypertensive disorder 38 [id number] I10 bp stable cont same meds Crohn's disease [id number] K50.90 seen by GI and= is on methotrexa te sq injection an stable with Entyvio pt is feeling better and will be following GI appt Depression screening [id number] Z13.31 negative PHQ2 screening at today's visit Chronic ki dney disease stage 3 [id number] N18.30 followed by renal and doing very well no new issues Health Concerns Section Related Observation LastModified by Organization Detai ls LastModified Time None Recorded Concern Status LastModified by Organization Details LastModified Time None Recorded Advance Directives Directive None Recorded Payers Insurance Date Sequence Insurance Name Policy Number Policy Damon Covered Member ID Damon Member ID Guarantor Name 09/09/2017 1 [facility] [place] [place]omeka Colon [id number] Hector Perezonte 11/27/2024 2 MEDICAID[place]: [facility] Hector Colon [id number] Hector Perezonte 11/27/2024 1 [place]: [employer] Hector Colon [id number] Hcetor Perezonte 08/13/2024 1 [employer] [place]IC[place]AC[place] [facility] [place] Hector Colon [id number] Hector Perezonte Notes Date Note Type Note Provider Name and Address Organization Details Recorded Time 4 text/htm l Pre-OpReported bypatient.Surgery to be Performed:carpal tunnel surgery (bilaterally) and both elbows (biopsy) with Dr. Colin at [facility] Severity:severe Risk Factorsno cognitive impairment; no functional [...] Support:adequate assistance at home () cleared by building maintenance mechanic and furnace reliner SAI PIERCE [address] [place], [address], [facility], [place], operated by [facility] 06/06/2023 10:36:13 4 text/htm l [...] should be restarted Garry Valdez DO [address] [place], [address], [facility], [place], operated [facility] 08/17/2023 11:35:26 4 text/htm l [...] controlled no bleeding Garry Valdez DO [address] [place], [address], [facility], [place], operated by [facility] 10/19/2023 14:23:32 4 text/htm l here for rechk and is doing jessica MTX and recent lab shows ongoing anemia creat is still ok overallarhtritis is bothering himcrohns is quiet ]'gout has been the issue uric acid is 7.2 Garry Valdez DO [address] [place], [address], [facility], [place], operated by [facility] 02/09/2024 23:02:06 5 text/htm l [...] doing well no change in meds Garry Valdez, DO [address] [facility], [place], [address], [facility] 08/13/2024 15:28:54
== END 2024-11-28 13:45 | disposition home or self-care (01) ==
LOC: HO.HCS 11:57
PROVIDERS: PCP Internal Medicine; Visit Provider Internal Medicine
DX: I48.19 Other persistent atrial fibrillation (principal); I49.3 Ventricular premature depolarization; I50.812 Chronic right heart failure; Z98.890 Other specified postprocedural states; I10 Essential (primary) hypertension; G47.33 Obstructive sleep apnea (adult) (pediatric); Z99.89 Dependence on other enabling machines and devices; Z01.810 Encounter for preprocedural cardiovascular examination
CPT/HCPCS: 93010; 99214; G2211

== ENCOUNTER → 2024-11-28 11:57 | Outpatient (BNVA) | payer MEDICARE, MEDICAID, SELFPAY | PROVIDERS: PCP Internal Medicine; Visit Provider Internal Medicine | DX: Z01.810 Encounter for preprocedural cardiovascular examination (principal); I11.0 Hypertensive heart disease with heart failure; I50.812 Chronic right heart failure; I48.19 Other persistent atrial fibrillation; I49.3 Ventricular premature depolarization; G47.33 Obstructive sleep apnea (adult) (pediatric); Z98.890 Other specified postprocedural states; Z99.89 Dependence on other enabling machines and devices | CPT/HCPCS: 93005; 99212 ==

== ENCOUNTER 2024-12-05 07:17 | Day surgery (SDC) | payer MEDICARE, MEDICAID, SELFPAY ==
--- OUTSIDE RECORDS SUMMARY | 2024-08-30 08:00 | XMS_ITS ---
Author Organization [facility] Address [address] [place] [address] Care Team Providers Care Refuge Worker Name Role Phone Garry Graves MD Primary Care Provider Daisy George Unavailable [phone] Solomon eVntura [phone] Encounters Encounter Location Date Provider Diagnosis [address] [address] 08/30/2024 Solomon Ventura Plan Of Treatment Next Appt Details Provider Name:Daisy collado, 09/12/2025 11:15:00 AM, [address] [place] [address], [address], Progress Notes * SERA Hector KDOB:[birth year] (69 yo M)Acc No.[id number]:08/30/2024 Progress Note Patient: Hector AJ Provider: Teresa Ventura DPM :1955 A ge:69 Y S ex:Male Date:08/30/2024 Address:[address] [place] [address] Pcp:Garry Graves MD Subjective: * Chief Complaints: [...] 08/30/2024 Generated for Capo raman/Davidson/Brenden on: 0 11/08/2024 05:47 PM EDT
[2024-11-28 10:30] VITALS: BP 153/65; PULSE 60; RESP 18; O2SAT 97; BMI 46.3
--- NOTE | 2024-11-28 10:50 | HO.ANESPROP2 ---
Documented by User: Yeimy Corado NP 12/04/24 09:33 HPI - Anesthesia Eval Consult details Narrative: 69 yr old male for Colonoscopy No CP/SOB with ADLs. No recent illness. TIFFANY on CPAP Morbid obesity: BMI 46 s/p carpal tunnel release 07/2023 w/nerve block, s/p carpal tunnel release 11/2023 w/ local. Afib: on eliquis, s/p holter 04/2024 after bradycardia in preop 05/2023, rates 40-96. Chronic right heart failure: echo done 06/2023. CKD stage 3, follows with renal, creat 1.74 10/2024 Cardiology recommendations 11/29/24: Due to history of atrial fibrillation with slow ventricular response, there is a risk of bradycardia with anesthesia/colonoscopy. We discussed this in detail today. Hence minimize sedation/duration of anesthesia for the procedure. May hold Eliquis for 2 days prior to procedure. Med cleared with PCP 11/30/24. 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) Cubital tunnel syndrome on right (Acute) Carpal tunnel syndrome of right wrist (Acute) NSVT (nonsustained ventricular tachycardia) (Acute) Cubital tunnel syndrome on left (Acute) Carpal tunnel syndrome on left (Acute) Gouty tophi of joint (Acute) Preoperative cardiovascular examination (Acute) Stiffness of joints of both hands (Acute) Cubital tunnel syndrome of both upper extremities (Acute) Carpal tunnel syndrome on both sides (Acute) Arthritis associated with inflammatory bowel disease (Acute) Tingling of both upper extremities (Acute) Persistent atrial fibrillation (Acute) Bilateral hand pain (Acute) Bilateral foot pain (Acute) Arthropathy (Acute) Crohn's colitis (Acute) Atrial fibrillation (Acute) Restrictive lung disease (Acute) Cervical spondylosis (Acute) Epidermal cyst (Acute) Essential hypertension (Acute) Status post surgical atrial septal defect closure (Acute) Chronic right heart failure (Acute) TIFFANY on CPAP (Acute) Morbid obesity (Acute) Past Medical History Medical History Diverticulitis Elevated cholesterol Murmur COVID-19 Claustrophobia Arthritis Atrial septal defect Atrial fibrillation Gouty tophi of joint Restrictive lung disease Cervical spondylosis Epidermal cyst Essential hypertension Chronic right heart failure Crohn's disease TIFFANY on CPAP Morbid obesity Functional capacity: independent ambulation Family History Family History Father Hx of Crohn's disease Cancer Mother Hx of type 2 diabetes mellitus Family history of problems with anesthesia: No Surgical History Surgical History S/P LASIK surgery Hx of carpal tunnel repair History of colon resection History of excision of epidermal inclusion cyst (~03/27/21) History of esophagogastroduodenoscopy (EGD) Status post surgical atrial septal defect closure History of colonoscopy History of Problems with Anesthesia: No Social History Social History Are you a primary nurse healthcare manager to a significant other at home: No Do you presently have visiting nurse or other home services: No Alcohol intake: never Comment: counts correct Patient Tobacco Use Status: Former Tobacco user Tobacco use type: Cigarette Years Smoked: 10 +/- Use of substances other than those prescribed or required for medical reasons: No Have you been hit, kicked, punched, or otherwise hurt by someone within the past year? If so, by whom?: No Are you DNR?: No Advance Directives: No Advance Directives Information Provided: Yes Advance Directives on File: No Poor oral hygiene: Yes Current occupational status: retired Current occupation: right hand dominant Meds Allergies Allergy/AdvReac Type Severity Reaction Status Date / Time tramadol Allergy Mild Dizziness Verified 12/05/24 07:34 meloxicam Allergy Diarrhea Verified 12/05/24 07:34 Home Medications ?Medication ?Instructions ?Recorded ?Confirmed ?Last Taken ?Type amlodipine 10 mg tablet 10 mg PO QAM 03/03/20 12/05/24 12/05/24 History vedolizumab 300 mg intravenous 300 mg IV Q8W 12/16/20 11/28/24 Unknown History solution (Entyvio) ferrous sulfate 324 mg (65 mg 324 mg PO DAILY 12/25/20 11/28/24 Unknown History iron) tablet,delayed release acetaminophen 650 mg 1,300 mg PO BID 06/01/21 11/28/24 Unknown History tablet,extended release (Tylenol Arthritis Pain) multivitamin 1 tab PO DAILY 09/15/22 11/28/24 Unknown History furosemide 40 mg tablet 80 mg PO QAM 01/20/23 11/28/24 Unknown History pantoprazole 40 mg tablet,delayed 40 mg PO QAM 06/06/23 12/05/24 12/05/24 History release acetaminophen 500 mg tablet 500 mg PO QNOON 11/28/24 11/28/24 Unknown History (Acetaminophen Extra Strength) turmeric 400 mg capsule 400 mg PO DAILY 11/28/24 11/28/24 12/02/24 History Exam Height,Weight and Vital Signs: Height 5 ft 11 in Weight 150.593 kg Last Vital Signs Pulse 60 11/28/24 10:30 Resp 18 11/28/24 10:30 BP 153/65 H 11/28/24 10:30 Pulse Ox 97 11/28/24 10:30 O2 Del Method Room Air 11/28/24 10:30 Narrative Narrative: ECHO 06/2023 - Grossly normal LVEF. - The visually estimated ejection fraction is between 60-65%. - There is mild to moderately decreased right ventricular systolic function. - No obvious valvular pathology seen on this study. Airway Mallampati Class: IV TM Dist: >3cm Neck ROM: Full Loose/Missing/Broken Teeth: Upper (crown right upper molar) Heart: RRR Lungs: CTAB Other: b/l 1+ pitting LE edema Assessment and Plan Final Anesthetic Review Family History of Problems with Anesthesia: No History of Problems with Anesthesia: No Documented by User: Neema Pedraza MD 12/05/24 07:47 [facility] Past Medical History Medical History Diverticulitis Elevated cholesterol Murmur COVID-19 Claustrophobia Arthritis Atrial septal defect Atrial fibrillation Gouty tophi of joint Restrictive lung disease Cervical spondylosis Epidermal cyst Essential hypertension Chronic right heart failure Crohn's disease TIFFANY on CPAP Morbid obesity Family History Family History Father Hx of Crohn's disease Cancer Mother Hx of type 2 diabetes mellitus Surgical History Surgical History S/P LASIK surgery Hx of carpal tunnel repair History of colon resection History of excision of epidermal inclusion cyst (~03/27/21) History of esophagogastroduodenoscopy (EGD) Status post surgical atrial septal defect closure History of colonoscopy Social History Social History Are you a primary nurse healthcare manager to a significant other at home: No Do you presently have visiting nurse or other home services: No Alcohol intake: never Comment: counts correct Patient Tobacco Use Status: Former Tobacco user Tobacco use type: Cigarette Years Smoked: 10 +/- Use of substances other than those prescribed or required for medical reasons: No Have you been hit, kicked, punched, or otherwise hurt by someone within the past year? If so, by whom?: No Are you DNR?: No Advance Directives: No Advance Directives Information Provided: Yes Advance Directives on File: No Poor oral hygiene: Yes Current occupational status: retired Current occupation: right hand dominant Meds Allergies Allergy/AdvReac Type Severity Reaction Status Date / Time tramadol Allergy Mild Dizziness Verified 12/05/24 07:34 meloxicam Allergy Diarrhea Verified 12/05/24 07:34 Home Medications ?Medication ?Instructions ?Recorded ?Confirmed ?Last Taken ?Type amlodipine 10 mg tablet 10 mg PO QAM 03/03/20 12/05/24 12/05/24 History vedolizumab 300 mg intravenous 300 mg IV Q8W 12/16/20 11/28/24 Unknown History solution (Entyvio) ferrous sulfate 324 mg (65 mg 324 mg PO DAILY 12/25/20 11/28/24 Unknown History iron) tablet,delayed release acetaminophen 650 mg 1,300 mg PO BID 06/01/21 11/28/24 Unknown History tablet,extended release (Tylenol Arthritis Pain) multivitamin 1 tab PO DAILY 09/15/22 11/28/24 Unknown History furosemide 40 mg tablet 80 mg PO QAM 01/20/23 11/28/24 Unknown History pantoprazole 40 mg tablet,delayed 40 mg PO QAM 06/06/23 12/05/24 12/05/24 History release acetaminophen 500 mg tablet 500 mg PO QNOON 11/28/24 11/28/24 Unknown History (Acetaminophen Extra Strength) turmeric 400 mg capsule 400 mg PO DAILY 11/28/24 11/28/24 12/02/24 History Exam Airway Mallampati Class: II (one crown bottom right lateral, thick neck) Assessment and Plan Assessment Anesthesia Assessment: Anesthesia Plan Discussed Final Anesthetic Review NPO: Yes ASA Class: III Final Preanesthetic Review: No Changes in Pt Med Stat, Meds/Allgs Chart Reviewed and Consent Obtained/Reviewed Patient Risk: Intermediate Procedure Risk: Low Anesthetic Plan Anesthetic Plan: MAC: Disposition: Standard PACU
[2024-12-05 07:44] VITALS: BP 144/38; PULSE 73; RESP 18; TEMP 36.9; O2SAT 97
[2024-12-05] MEDS: Lactated Ringers 1,000 ML 50 ML IVCONT (07:48)
[2024-12-05 07:49] VITALS: BMI 44.6
[2024-12-05 08:12] LABS: Glucose, Whole Blood 122 mg/dL (60-115)
--- NOTE | 2024-12-05 08:27 | MHC.SHP ---
Pre-Procedural Eval Section A - 24 Hr Update-Section A only Date of Service: 12/05/24 Section B - Complete if H&P > 30 days Chief Complaint: Other fecal abnormalities Relevant Family History (Specify if Yes): No Relevant Social History: None Present Medications: see Short Stay Collaborative assessment Medical History: Significant History (Diverticulitis Elevated cholesterol Murmur COVID-19 Claustrophobia Arthritis Atrial septal defect Atrial fibrillation Gouty tophi of joint Restrictive lung disease Cervical spondylosis Epidermal cyst Essential hypertension Chronic right heart failure Crohn's disease TIFFANY on CPAP Morbid obesity) History of Previous Operations: Relevant previous surgery/procedure and date(s) (S/P LASIK surgery Hx of carpal tunnel repair History of colon resection History of excision of epidermal inclusion cyst (~03/27/21) History of esophagogastroduodenoscopy (EGD) Status post surgical atrial septal defect closure History of colonoscopy) Allergies: Allergies Allergy/AdvReac Type Severity Reaction Status Date / Time tramadol Allergy Mild Dizziness Verified 12/05/24 07:34 meloxicam Allergy Diarrhea Verified 12/05/24 07:34 Review of Systems Sugical H&P ROS: Negative: Constitution, Cardiovascular, Respiratory, Neurological, Psychiatric, Hem-Onc, Allergic/Immunologic, Gastrointestinal, Genitourinary, Musculoskeletal, Integumentary, Endocrine and Eyes/Ears/Nose/Throat Exam Surgical H&P Exam: Normal: HEENT, Normal: Heart, Normal: Lungs, Normal: Extremities, Normal: Abdomen, Normal: Skin and Normal: Neurological Plan Diagnosis/Plan: Unchanged I have reviewed the history and physical and performed a pertinent physical examination on my patient. No changes have occurred unless specified. Time Spent With Patient Time: Total time managing care of this patient today ____ minutes.
--- NOTE | 2024-12-05 08:58 | HO.OPN-COLON ---
Colonoscopy Operative Note Operative Note Date of Service: 12/05/24 Narrative: Operative Information Procedure Description: Colonoscopy Indication: pos cologuard Anesthesia: MAC COLONOSCOPY Instrument: Olympus variable stiffness pediatric scope 190L Colonoscopy Monitoring: Vital signs and clinical assessment, continuous EKG monitoring, Pulse oximetry, Carbon Dioxide monitoring and blood pressure monitoring were done throughout the procedure. Colon withdrawal time was 12 minutes. Procedure: The patient was placed in the left lateral decubitis position and pre-procedure medications were administered. After a digital rectal examination of the ano-rectum, the video colonoscope was inserted into the rectum and advanced through the colon to the cecum/TI. The colonoscope was slowly withdrawn in a retrograde panoramic fashion and the colon mucosa was carefully examined including a retroflexed view of the rectum. Findings and interventions are described below. Procedure Difficulty: easy--used colowrap Findings: Terminal Ileum-normal, bx taken random bx from right, left colon Cecum:normal Ascending Colon: normal Transverse Colon -normal Descending Colon:normal Sigmoid Colon: moderate diverticulosis, 3-4 mm sessile polyp removed with cold forceps Rectum: Retroflexion with small internal hemorrhoids seen, grade I, 12-14 mm sessile polyp injected w/ epinephrine and removed with hot snare with one clip applied --edges ablated Anorectum - normal Intervention: cold snare, cold forceps, epinephrine injection, clip Colon preparation: [place] Bowel Preparation Scale Right colon; 2 Transverse colon: 2 Left colon; 2 (0 = Unprepared colon segment with mucosa not seen due to solid stool that cannot be cleared. 1 = Portion of mucosa of the colon segment seen, but other areas of the colon segment not well seen due to staining, residual stool and/or opaque liquid. 2 = Minor amount of residual staining, small fragments of stool and/or opaque liquid, but mucosa of colon segment seen well. 3 = Entire mucosa of colon segment seen well with no residual staining, small fragments of stool or opaque liquid) Impression and Post Procedure Diagnosis: diverticulosis colon polyps internal hemorrhoids Plan: High fiber diet leaflet Avoid straining at stool, epsom salts and sitz bath, anusol supps or cream Repeat Colonoscopy in 2-3 years or earlier if clinically indicated Above findings were reviewed with the patient and relevant handouts were provided if indicated.
[2024-12-05 09:02] VITALS: BP 131/51; PULSE 68; RESP 16; TEMP 37.1; O2SAT 94
[2024-12-05 09:17] VITALS: BP 126/49; PULSE 67; RESP 16; TEMP 37.1; O2SAT 95
== END 2024-12-05 09:38 | disposition home or self-care (01) ==
PROVIDERS: Visit Provider Internal Medicine Gastroenterology
PROC: 0DJD8ZZ Inspection of Lower Intestinal Tract, Via Natural or Artificial Opening Endoscopic (ICD-10-PCS; CPT 45378; principal; 2024-12-05 08:30)
DX: R19.5 Other fecal abnormalities (principal); D12.8 Benign neoplasm of rectum; K51.40 Inflammatory polyps of colon without complications; K57.30 Diverticulosis of large intestine without perforation or abscess without bleeding; K64.0 First degree hemorrhoids; K50.80 Crohn's disease of both small and large intestine without complications; Z87.19 Personal history of other diseases of the digestive system; E78.00 Pure hypercholesterolemia, unspecified; F40.240 Claustrophobia; I11.0 Hypertensive heart disease with heart failure; Z87.891 Personal history of nicotine dependence; I50.812 Chronic right heart failure; R01.1 Cardiac murmur, unspecified; I48.91 Unspecified atrial fibrillation; M12.9 Arthropathy, unspecified; M1A.9XX1 Chronic gout, unspecified, with tophus (tophi); E66.01 Morbid (severe) obesity due to excess calories; Z68.42 Body mass index [BMI] 45.0-49.9, adult; G47.33 Obstructive sleep apnea (adult) (pediatric); Z99.89 Dependence on other enabling machines and devices; Z79.01 Long term (current) use of anticoagulants; Z79.899 Other long term (current) drug therapy; Z98.890 Other specified postprocedural states
CPT/HCPCS: 45385; 45380; 45381; 82947; 88305; J0168; J1596; J2003; J2704

== ENCOUNTER → 2024-12-05 07:17 | Outpatient (BNV) | payer MEDICARE, MEDICAID, SELFPAY | PROVIDERS: Visit Provider Internal Medicine Gastroenterology | DX: Z12.11 Encounter for screening for malignant neoplasm of colon (principal); R19.5 Other fecal abnormalities; D12.8 Benign neoplasm of rectum; D12.5 Benign neoplasm of sigmoid colon; K57.30 Diverticulosis of large intestine without perforation or abscess without bleeding; K64.0 First degree hemorrhoids | CPT/HCPCS: 45380; 45381; 45385 ==

== ENCOUNTER 2024-12-10 08:42 | Outpatient (REF) | payer MEDICARE, MEDICAID, SELFPAY ==
--- OUTSIDE RECORDS SUMMARY | 2024-08-30 08:00 | XMS_ITS ---
Author Organization [facility] Address [address] [place] [address] Care Team Providers Care Measurement Operator Name Role Phone Garry Graves MD Primary Care Provider Daisy George Unavailable [phone] Solomon Ventura [phone] Encounters Encounter Location Date Provider Diagnosis [address] [address] 08/30/2024 Solomon Ventura Plan Of Treatment Next Appt Details Provider Name:Daisy collado, 09/12/2025 11:15:00 AM, [address] [place] [address], [address], Progress Notes * SERA Hector KDOB:[birth year] (69 yo M)Acc No.[id number]:08/30/2024 Progress Note Patient: Hector AJ Provider: Teresa Ventura DPM :1955 A ge:69 Y S ex:Male Date:08/30/2024 Address:[address] [place] [address] Pcp:Garry Graves MD Subjective: * Chief Complaints: [...] 0 08/30/2024 Generated for Capo raman/Davidson/Brenden on: 0 12/10/2024 09:07 AM EDT
--- OUTSIDE RECORDS SUMMARY | 2024-12-10 09:07 | XMS_ITS | Data Portability ---
[facility] Patient Home Address [address] [place] [address] Assessment Encounter Date Assessment Date Assessment LastModified by Organization Details LastModified Time 08/17/2023 08/17/2023 [id number] [place] [address] (BINGO CLERK) MDM MODERATE MUST MEET 2 OUT OF [...] COVERED Not available 08/17/2023 11:35:12 10/19/2023 10/19/2023 [id number] [place] [address] (BINGO CLERK) MDM HIGH MUST MEET 2 OUT OF [...] reduce health risks and promote healthy living. [email or web address] Not available 02/08/2024 16:33:32 08/13/2024 08/13/2024 [id number] [place] [address] (BINGO CLERK) : MDM LOW MUST MEET 2 OF [...] THE ELEMENTS COVERED Not available 08/13/2024 15:27:20 11/30/2024 11/30/2024 pt evaluated and deemed safe for the proposed colonoscopy . He is currently stable and deemed a low risk per the cardiac risk stratification of the [facility] (revised). He is in afib and has a controlled VR in upper 50's to low 60's (was noted to have a bradycardic response while under general anesthesia however, with light sedation the pt should be able to tolerate the procedure without issue). He understands to take his usual medication on that day with the exception of his Eliquis which will be held for two days prior. if possible, would reccomend a cpap set up for oxygen delivery. Not available 11/30/2024 11:53:48 Plan of Treatment Reminders Order Date Submit Date Provider Last Modified By Organization Details Last Modified Time Details Appointments MEDICARE ANNUAL WELLNESS 2024 11:00A M DR VALDEZ Not available Not available Not available Lab None recorded. Referral None recorded. Procedures None recorded. Surgeries None recorded. Imaging None recorded. Medication Orders amoxicill in 875 mg-potass ium clavulana te 125 mg tablet 2023 024 [email or web address] [id number], [address], [place], [phone], 10/19/2023 13:55:23 Patient TargetsNo targets recorded. Patient Instructions Encounter Date Encounter Id Patient Instructions Last Modified By Organization Details Last Modified Time 08/17/2023 [id number] pulse oximetry* Not available 08/17/2023 11:13:27 10/19/2023 [id number] When You Want to Lose Weight: Care Instructions Not available 10/19/2023 14:23:11 crohn's disease: care instructions Not available 10/19/2023 14:23:11 heart failure: care instructions Not available 10/19/2023 14:23:11 learning about heart failure Not available 10/19/2023 14:23:11 02/08/2024 [id number] pulse oximetry* Not available 02/09/2024 23:02:02 sleep apnea: car e instructions Not available 02/09/2024 23:02:02 08/13/2024 [id number] medicines to avoid with kidney disease: care instructions Not available 08/13/2024 15:28:39 11/30/2024 [id number] pulse oximetry* Not available 11/30/2024 11:56:01 Reason for Referral None Reported. Results Created Date Observation Date Name Description Value Unit Range Abnormal Flag Note LastModifiedBy Organization Detail LastModifiedTime 08/17/19 24 08/17/2023 pulse oxime try* Result 97 Not Available [facility] [address] [place] [address], [place], [address], 08/15/2023 14:00:34 02/08/20 24 02/08/2024 pulse oxime try* Result 97 Not Available [facility] [address] [facility] [address], [place], [address], 02/06/2024 12:00:52 12/01/19 25 11/30/2024 pulse oxime try* Result 96 Not Available [facility] [address] [facility] [address], [place], [address], 11/29/2024 09:13:09 Result Notes None recorded. Problems Name Problem SNOMED Code Status Onset Date Resolution Date Notes Provider Name and Address Organization Details Recorded Time Morbid obesity 327840927 Active 2017 Susan burgess [facility] 8 08:45:56 Congestive heart failure 00046546 Active 2017 Susan burgess [facility] 8 08:45:59 Obstructiv e sleep apnea syndrome 03588552 Active 2017 Susan burgess [facility] 8 08:46:05 Hypertensi ve disorder 46653479 [facility] 08:46:10 Crohn's disease 43847550 Active 2019 Garry Valdez DO [address] [place] [address], [address], [facility] 0 11:51:44 Degenerati on of lumbar interverte bral disc 79808312 Active 2020 Garry Valdez DO [address] [place] [address], [address], [facility] 1 10:47:53 Osteoarthr itis 445323743 Active 2021 Garry Valdez DO [address] [place] [address], [address], [facility] 2 15:14:41 Osteoarthr itis of joint of hand 67813585 Active 2022 SAI PIERCE [address] [place], [address], [facility] 3 15:28:27 COVID-19 894264632 Active 2023 Garry Reich Maribelalexander, [address] [place] [address], [address], [facility] 4 13:31:54 Chronic tophaceous gout 91724232 Active 2023 Garry Valdez [address] [place] [address], [address], [facility] 4 11:11:39 Acute right otitis media 344436174 Active 2023 Garry Reich Star [address] [place] [address], [address], [facility] 4 11:34:54 Psoriatic arthritis 832048064 Active 2023 Garry Reich Star [address] [place] [address], [address], [facility] 4 14:16:12 Chronic kidney disease stage 3 910115704 Active 2024 Garry Lópezalexander, [address] [place] [address], [address], [facility] 5 15:28:23 Problem Notes None recorded. Procedures Surgical History Date Name Laterality Status Provider Name and Address Organization Details Recorded Time 019 Corticosteroid Injection completed Garry Valdez [address], [address], [facility] 01/08/2019 10:11:59 Imaging Results None recorded. Procedure Notes None recorded. Medical Equipment None Reported. Allergies Allergen ID Allergen Name Allergen Category Reaction Reaction Severity Criticality Documentation Date Start Date Code Code System Note Provider Name and Address Organization Details Recorded Time 3160 meloxicam medicatio n diarrhea severe Not available 11/20/20182018 31555 RxNorm Garry Valdez DO [address] [place] [address], [address], [facility] 9 17:32:39 4698 tramadol medicatio n dizziness moderate Not available 01/06/2021 14173 RxNorm SAI PIERCE [address] [place], [address], [facility] 11:05:59 Medications Name Sig Start [...] completed Not Available Not Available Not Available sodium,pota ssium,mag sulfates 17.5 gram-3.13 gram-1.6 gram oral soln active Not Available Not Available Not Available Eliquis [...] Updated DateTime 4 177.8 cm 44.9 kg/m2 124525. 41 g 55 /min 97 % 97 % 140/60 mm[Hg] Jeane Peralta [facility] 4 10:44:51 Date Recorded Body height Body mass index (BMI) Body weight Heart rate Respiratory rate Oxygen saturation Oxygen saturation in Arterial blood by Pulse oximetry Systolic And Diastolic Provider Name and Address Organization Details Last Updated DateTime 4 177.8 cm 44.9 kg/m2 602395. 41 g 52 /min 18 /min 99 % 99 % 132/66 mm[Hg] João Joyner [facility] 4 13:57:16 Date Recorded Body height Body mass index (BMI) Body weight Oxygen saturation Oxygen saturation in Arterial blood by Pulse oximetry Systolic And Diastolic Provider Name and Address Organization Details Last Updated DateTime 5 177.8 cm 46.8 kg/m2 042326. 47 g 96 % 96 % 128/66 mm[Hg] Jacqueline Neumann [facility] 5 11:32:32 Date Recorded Body height Body mass index (BMI) Body weight Heart rate Oxygen saturation Oxygen saturation in Arterial blood by Pulse oximetry Systolic And Diastolic Systolic And Diastolic Provider Name and Address Organization Details Last Updated DateTime 4 177.8 cm 44.9 kg/m2 110441. 41 g 54 /min 97 % 97 % 140/70 mm[Hg] 132/70 mm[Hg] Jeane Peralta [facility] 4 16:35:02 Social History Question Answer Notes LastModified by Organizat ion Details LastModified Time Tobacco Smoking Status Former Smoker Not Available [facility] 03/18/2020 03:36:24 What Was The Date Of Your Most Recent Tobacco Screening? 11/30/2024 [email or web address] Information not available 11/30/2024 Sex: Unknown Functional Status Question Answer Note [...] pneumococcal polysaccharide PPV23 0 [facility]2020 11:26:53 COVID-19, mRNA, LNP-S, PF, 30 mcg/0.3 mL dose 1 completed [facility] 11/25/2020 11:27:04 COVID-19, mRNA, LNP-S, PF, 30 mcg/0.3 mL dose 1 completed Nathalie Balicki [facility] 11/25/2020 11:27:11 Hep B, unspecified formulation 0 completed Nathalie Balicki [facility] 11/25/2020 11:27:24 Hep B, unspecified formulation 0 completed [facility] 11/25/2020 11:27:31 Hep B, unspecified formulation 1 completed Nathalie Balicki [facility] 11/25/2020 11:27:37 Hep A, unspecified formulation 0 completed [facility] 11/25/2020 11:27:57 Hep A, unspecified formulation 0 completed [facility] 11/25/2020 11:28:04 Hep A, unspecified formulation 1 completed [facility] 11/25/2020 11:28:12 COVID-19, mRNA, LNP-S, PF, 30 mcg/0.3 mL dose 1 completed [facility] 01/06/2021 09:14:20 Influenza, split virus, quadrivalent, preservative 1 completed Susan Florez jenifer [facility] Internal [facility] 08/24/2021 10:36:11 Tdap 9 completed Susan Florez jenifer [facility] 01/17/2019 08:11:56 Past Encounters Encounter ID Performer Location Encounter Start Date Encounter Closed Date Diagnosis/Indication Diagnosis SNOMED-CT Code Diagnosis ICD10 Code Diagnosis Note [id number] Garry Valdez [facility] [address], [place] [address] 09/13/2017 10:56:44 09/13/2017 16:01:17 Hypertensive disorder 88399193 I10 bp stable cont same meds Congestive heart failure 98685474 I50.9 stable and without exacerbati ons is euvolemic Tenosynovi tis of wrist 887713786 M65.839 [id number] Garry Valdez [facility] [address], [place] [address] 01/25/2018 09:33:47 01/25/2018 10:14:56 Morbid obesity 579772803 E66.01 chronic illness and not working on it Hypertensive disorder 38 371717 I10 bp stable cont same meds Congestive heart failure 99548735 I50.9 stable and without exacerbati ons is euvolemic Obstructiv e sleep apnea syndrome 39400870 G47.33 stable and cont on [facility] cpap Screening for cardiovascular system disease 412403757 Z13.6 Edema of l ower extremity 793371580 R60.0 cont two tabs of lasix need to check K+ levels and creat [id number] Garry Valdez [facility] [address],[place] [address] 05/23/2018 10:33:27 05/23/2018 16:49:35 Morbid obesity 238065512 E66.01 Work on weight loss Acute bronchitis 4043343 2 J20.9 Hypertensive disorder 38 772835 I10 mildly elevated, keep scheduled july appt Obstructiv e sleep apnea syndrome 44333533 G47.33 compliant with CPAP [id number] Garry Valdez [facility] [address],[place] [address] 08/02/2018 08:56:16 08/02/2018 12:49:34 Obstructive sleep apnea syndrome 53993302 G47.33 stable and cont on jhsi cpap Hypertensive disorder 38 346327 I10 bp stable cont same meds Congestive heart failure 13289647 I50.9 stable and without exacerbati ons is euvolemic Morbid obesity 172369993 E66.01 chronic illness and not working on it Pain of samuel int of wrist 445050301 M25.539 recc refer he will consider appt with dr nation [id number] Garry Valdez [facility] [address], [place] [address] 11/20/2018 16:16:38 11/20/2018 17:38:10 Adverse reaction to drug 77594562 T50.905A severe GI response to daily use of meloxicam that was orderd by specialist will need to take probiotics culturelle Hypertensive disorder 38 135472 I10 bp stable cont same meds Congestive heart failure 58269934 I50.9 stable and without exacerbati ons is euvolemic [id number] Garry Valdez [facility] [address], [place] [address] 12/27/2018 10:47:48 12/27/2018 13:47:31 Body mass index 40+ - severely obese 741779202 Z68.42 Hypertensive disorder 38 625199 I10 stable Obstructiv e sleep apnea syndrome 18823812 G47.33 uses cpap every night Knee pain 89297486 M25.5 69 right lateral knee pain OA vs tendinitis mendieta consider PT in future [id number] Garry Valdez [facility] [address], [place] [address] 01/08/2019 09:49:46 01/08/2019 10:20:43 Osteoarthritis of knee 612348831 M17.9 [place] [id number] Garry Valdez [facility] [address],[place] [address] [employer] [facility] [place] [address] 02/07/2019 08:53:44 02/07/2019 10:48:03 Hypertensive disorder 09397234 I10 bp stable cont same meds Congestive heart failure 24882706 I50.9 stable and without exacerbati ons is euvolemic echo is done recently and is excellent per verbal report Chronic diarrhea 5313693 09 K52.9 major lab done GI f/u jarred have colonosc next nov Morbid obesity 967611855 E66.01 with the diarrhea [place] been [place] wgt [id number] Garry Valdez [facility] [address], [place] [address] 05/07/2019 10:23:47 05/07/2019 10:53:59 Hypertensive disorder 79632619 I10 bp stable cont same meds Congestive heart failure 67997804 I50.9 stable and without exacerbati ons is euvolemic echo is done recently and is excellent per report Obstructiv e sleep apnea syndrome 30569398 G47.33 stable and cont on jhsi cpap Diarrhea 82225962 R19.7 None since colonoscop y Crohn's disease 28026594 K50.90 Biopsy/abd CT of GI showed low grade inflammati on suggestive of Crohn's Seeing GI in one week Daughter has Crohn's [id number] Garry Valdez [facility] [address], [employer] [facility] [address] 08/17/2019 09:29:29 08/17/2019 12:16:51 Congestive heart failure 46023401 I50.9 stable and without exacerbati ons is euvolemic echo is done recently and is excellent per report Hypertensive disorder 38 142520 I10 bp stable cont same meds Obstructiv e sleep apnea syndrome 09776631 G47.33 stable and cont on jhsi cpap Microcytic anemia 174073 007 D50.9 will be needing to take iron tab will use wifes MVI wish to get iron studies but he wont go out to get lab [id number] Garry Valdez [facility] [address], [place] [address] 12/07/2019 08:58:03 12/07/2019 11:52:09 Congestive heart failure 10604655 I50.9 stable and without exacerbati ons is euvolemic echo is done recently and is excellent per report needs to renew his lasix no leg swelling Crohn's disease 78635296 K50.90 Biopsy/abd CT of GI showed low grade inflammati on suggestive of Crohn's Seeing GI in one week Daughter has Crohn's Hypertensive disorder 38 073554 I10 bp stable cont same meds Obstructiv e sleep apnea syndrome 17996529 G47.33 stable and cont on si cpap [id number] Garry Valdez [facility] [address],[place] [address] 04/28/2020 08:45:16 04/28/2020 10:57:40 Congestive heart failure 64868870 I50.9 stable and without exacerbati ons is euvolemic echo is done recently and is excellent per report needs to renew his lasix no leg swelling Hypertensive disorder 38 030464 I10 bp stable cont same meds Obstructiv e sleep apnea syndrome 45976029 G47.33 stable and cont on his cpap Morbid obesity 446505550 E66.01 long discussion re prob with his eating states is at 334 Crohn's disease 85447697 K50.90 seen by GI and has been started on HUmira pt is feeling better and will be seeing GI appt in may Garry Valdez [facility] [address],[place] [address] 11/28/2020 11:06:02 11/28/2020 12:11:18 Hypertensive disorder 05569698 I10 bp stable cont same meds Congestive heart failure 49624715 I50.9 stable and without exacerbati ons is euvolemic echo is done recently and is excellent per report needs to renew his lasix no leg swelling Obstructiv e sleep apnea syndrome 46924663 G47.33 stable and cont on his cpap Hepatitis C screening 41 1273271 Z11.59 Morbid obesity 487401390 E66.01 long discussion re prob with his eating states is at 302 with the weight loss from the crohns Crohn's disease 15713258 K50.90 seen by GI and has been started on Entyvil IV infusion regimen pt is feeling better and will be seeing GI appt 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 5643794864 106 K50.018 we will have him see a rheumatolo gist [id number] Garry Valdez [facility] [address] [facility] [address],[place] [address] 12/10/2020 09:52:05 12/10/2020 11:56:49 Neck pain 08535846 M54.2 will start on msk relaxer and tramadolfu with XR Torticollis 30716033 M43 .6 fu with MSK relaxer [id number] Garry Valdez [facility] [address] [facility] [address],[place] [address] 01/06/2021 09:05:10 01/06/2021 12:01:51 Epidermoid cyst of skin 996720249 L72.3 will fu with general surgeon for removal Degenerati on of cervical intervertebral disc 97178797 M50.30 will fu with PVSS [id number] Garry Valdez [facility] [address],[place] [facility] [address] 03/16/2021 11:22:42 03/16/2021 12:41:23 Low back pain 507332389 M54.59 will fu with XR to start on his low back Abnormal gait 80933693 R 26.9 will fu with order for stand up walker Bursitis o f olecranon of right elbow 6164771152 27072 [address]70[address] Bhardwaj about the pred taper [id number] Garry Valdez [facility] [address],[place] [address] 04/20/2021 10:25:43 04/20/2021 12:42:30 Hypertensive disorder 99179808 I10 bp stable cont same meds Congestive heart failure 19677164 I50.9 stable and without exacerbati ons is euvolemic echo is done recently and is excellent per report needs to renew his lasix no leg swelling Obstructiv e sleep apnea syndrome 22583713 G47.33 stable and cont on his cpap Crohn's disease 43153551 K50.90 seen by GI and has been started on Entyvil IV infusion regimen pt is feeling better and will be seeing GI appt Degenerati on of lumbar intervertebral disc 59018578 M51.36 Hearing loss 35142391 H9 0.3 will need audiogram 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 [place] [address] 08/24/2021 10:25:17 08/24/2021 11:40:12 Hypertensive disorder 37691078 I10 bp stable cont same meds Congestive heart failure 40189729 I50.9 stable and without exacerbati ons is euvolemic echo is done recently and is excellent per report needs to renew his lasix no leg swelling Morbid obesity 520159854 E66.01 long discussion re prob with his eating states is at 322 \told him this will lower his life expectancy s Crohn's disease 19638091 K50.90 seen by GI and has been started on Entyvil IV infusion regimen pt is feeling better and will be seeing [place] appt [id number] Garry Valdez [facility] [address],[place] [employer] [place] [address] 12/11/2021 14:47:03 12/11/2021 16:18:04 Hypertensive disorder 84092350 I10 bp stable cont same meds Depression screening 171 346644 Z13.31 negative PHQ2 screening at today's visit Crohn's disease 68638178 K50.90 seen by GI and= is on methotrexa te sq injection pt is feeling better and will be seeing GI appt Congestive heart failure 66303113 I50.9 stable and without exacerbati ons is euvolemic echo is done recently and is excellent per report needs to renew his lasix no leg swelling Osteoarthritis 991772224 M19.90 he is still struggling with the arthralgia [id number] Garry Valdez [facility] [address] [facility] [address],[place] [address] 04/30/2022 10:54:24 04/30/2022 15:17:59 Congestive heart failure 57721020 I50.9 stable and without exacerbati ons is euvolemic echo is done recently and is excellent per report needs to renew his lasix no leg swelling Hypertensive disorder 38 712798 I10 bp stable cont same meds Osteoarthritis 142528867 M19.90 he is still struggling with the arthralgia encouraged to walk Obstructiv e sleep apnea syndrome 61733509 G47.33 stable and cont on his cpap but wondering about a new device for the chest??? [id number] Garry Valdez [facility] [address],[place] [address] 11/26/2022 10:17:44 11/26/2022 11:32:27 Congestive heart failure 60324426 I50.9 stable and without exacerbati ons is euvolemic echo is done recently and is excellent per report needs to renew his lasix no leg swelling Hypertensive disorder 38 295994 I10 bp stable cont same meds Morbid obesity 237691245 E66.01 he has lost 8 lbs Crohn's disease 06722745 K50.90 seen by GI and= is on methotrexa te sq injection pt is feeling better and will be following GI appt [id number] Garry Valdez [facility] [address],[place] [address] 06/06/2023 10:12:51 06/06/2023 10:41:44 Morbid obesity 075023802 E66.01 stable Hypertensive disorder 38 652500 I10 cleared by cardiology Obstructiv e sleep apnea syndrome 93988983 G47.33 stable, no changes Congestive heart failure 23631095 I50.89 stable per cardiology Pre-surger y evaluation 931629386 Z01.818 The patient was seen in the office today for pre-op evaluation . All medical conditions on patient's problem list were addressed and are currently stable, no interventi on needed at this time. Based on history and physical performed, the patient is cleared for surgery. [id number] Garry Valdez [facility] [address],[place] [address] 08/17/2023 10:37:50 08/17/2023 11:36:58 Crohn's disease 23641914 K50.90 seen by GI and= is on methotrexa te sq injection pt is feeling better and will be following GI appt Congestive heart failure 28212656 I50.89 stable and without exacerbati ons his recent cardiac work up was ecellent including echo and heart cath is euvolemic needs to renew his lasix no leg swelling Hypertensive disorder 38 513404 I10 bp stable cont same meds Morbid obesity 060705378 E66.01 no further wgt loss Chronic to phaceous gout 47085045 M1A.9XX1 Acute righ t otitis media 697451036 H66.91 [id number] Garry Valdez [facility] [address] [facility] [address],[place] [employer] [place] [employer] [place] [address] 10/19/2023 13:46:51 10/19/2023 14:34:25 Acute right otitis media 423123994 H66.91 has now resolved discussed in depth how TM can get infected Depression screening 171 784307 Z13.31 negative PHQ2 screening at today's visit Hypertensive disorder 38 788347 I10 bp stable cont same meds Degenerati on of lumbar intervertebral disc [id number] M51.36 still about the same but he is manging Congestive heart failure [id number] I50.89 stable and without exacerbati ons his recent cardiac work up was ecellent including echo and heart cath is euvolemic needs to renew his lasix no leg swelling Morbid obesity [id number] E66.01 no further wgt loss Psoriatic arthritis [id number] L40.50 having a hard time getting this controlled hurts to walk any distancedo es have a handicap platehas been on MTX for this Crohn's disease [id number] K50.90 seen by GI and= is on methotrexa te sq injection an stable with Entyvio pt is feeling better and will be following GI appt [id number] Garry Valdez [facility] Internal Medicine [address] [place] [address] 02/08/2024 16:03:32 02/10/2024 08:57:21 Congestive heart failure [id number] I50.89 stable and without exacerbati ons his recent cardiac work up was ecellent including echo and heart cath is euvolemic needs to renew his lasix no leg swelling Psoriatic arthritis 1563 02318 L40.50 having a hard time getting this controlled hurts to walk any distancedo es have a handicap platehas been on MTX for this Obstructiv e sleep apnea syndrome [id number] G47.33 stable and cont on his cpap but wondering about a new device for the chest??? [id number] Garry Valdez, [facility] Internal Medicine [address] [facility] [address] [address] 08/13/2024 08:38:51 08/13/2024 15:39:07 Congestive heart failure [id number] I50.89 stable and without exacerbati ons his recent cardiac work up was ecellent including echo and heart cath is euvolemic needs to renew his lasix no leg swelling Hypertensive disorder 38 668015 I10 bp stable cont same meds Crohn's disease [id number] K50.90 seen by GI and= is on methotrexa te sq injection an stable with Entyvio pt is feeling better and will be following GI appt Depression screening 171 343844 Z13.31 negative PHQ2 screening at today's visit Chronic ki dney disease stage 3 [id number] N18.30 followed by renal and doing very well no new issues [id number] Garry Valdez, [facility] Internal Medicine [address] [facility] [address] [address] 11/30/2024 11:21:39 11/30/2024 12:00:22 Depression screening [id number] Z13.31 negative PHQ2 screening at today's visit Pre-surger y evaluation [id number] Z01.818 as noted abovealso refer to cardiology note dated 11/28/24 Congestive heart failure [id number] I50.89 stable and without exacerbati ons his recent cardiac work up was ecellent including echo and heart cath is euvolemic today Health Concerns Section Related Observation LastModified by Organization Detai ls LastModified Time None Recorded Concern Status LastModified by Organization Details LastModified Time None Recorded Advance Directives Directive None Recorded Payers Insurance Date Sequence Insurance Name Policy Number Policy Damon Covered Member ID Damon Member ID Guarantor Name 09/09/2017 1 [employer] [facility] (O) Tomeka Colon [id number] Hector Colon 11/27/2024 2 [place] [facility] Hector Colon [id number] Hector Colon 11/27/2024 1 MEDICARE B-[place] [facility] Hector Colon [id number] Hector Colon 08/13/2024 1 [employer] (MEDICARE REPLACEMENT/A DVANTAGE - HMO) Hector Colon [id number] Hector Colon
[2024-12-10 12:04] LABS: Anion Gap 14 (12-20); Blood Urea Nitrogen 33 mg/dL (9-16); Calcium 9.2 mg/dL (8.4-10.2); Carbon Dioxide 24 mmol/L (22-29); Chloride 108 mmol/L (96-108); Estimated Glomerular Filt Rate 51; Potassium 4.2 mmol/L (3.3-5.1); Sodium 142 mmol/L (135-145)
== END 2024-12-10 08:43 | disposition home or self-care (01) ==
LOC: HO.WFDLDS 08:42
PROVIDERS: Visit Provider Internal Medicine Hypertension Specialist
DX: N18.31 Chronic kidney disease, stage 3a (principal)
CPT/HCPCS: 36415; 80048

== ENCOUNTER 2024-12-18 09:44 | Outpatient (AMB) | payer MEDICARE, MEDICAID, SELFPAY ==
--- OUTSIDE RECORDS SUMMARY | 2024-08-30 08:00 | XMS_ITS ---
Author Organization [facility] Address [address] [place] [address] Care Team Providers Care Employment Security Officer Name Role Phone Garry Graves MD Primary Care Provider Daisy George Unavailable [phone] Solomon Ventura [phone] Encounters Encounter Location Date Provider Diagnosis [address] [address] 08/30/2024 Solomon Ventura Plan Of Treatment Next Appt Details Provider Name:Daisy collado, 09/12/2025 11:15:00 AM, [address] [place] [address], [address], Progress Notes * SERAHector KDOB:[birth year] (69 yo M)Acc No.[id number]:08/30/2024 Progress Note Patient: Hector AJ Provider: Teresa Ventura DPM :1955 A ge:69 Y S ex:Male Date:08/30/2024 Address:[address] [place] [address] Pcp:Garry Graves MD Subjective: * Chief Complaints: [...] 08/30/2024 Generated for Capo raman/Davidson/Brenden on: 0 12/18/2024 10:10 AM EDT
--- NOTE | 2024-12-18 09:48 | A.OFFVIS_ITS ---
Vital Signs 12/18/24 09:58 Height 5 ft 11 in Weight 332 lb 14.368 oz BMI 46.4 BP 160/58 H Blood Pressure Location Lt brachial Position Sitting Pulse 51 Pulse Source Pulse Oximeter Pulse Oximetry (%) 98 Oxygen Delivery Method Room Air Intake Visit Reasons: Obstructive sleep apnea Intake Note: pt is here for follow up and lindsay, he is using cpap Merchant Banker Required: No Allergies tramadol Allergy (Mild, Verified 12/18/24 10:32) Dizziness meloxicam Allergy (Verified 12/18/24 10:32) Diarrhea Medication List - Last Reconciled 12/18/24 by Cipriano Pearson MD acetaminophen (Acetaminophen Extra Strength) 500 mg PO QNOON acetaminophen ER (Tylenol Arthritis Pain) 1,300 mg PO BID allopurinol 450 mg (1.5 x 300 mg) PO DAILY 90 days amlodipine 10 mg PO QAM apixaban (Eliquis) 5 mg PO BID ferrous sulfate 324 mg PO DAILY folic acid 1 mg PO DAILY furosemide 80 mg PO QAM insulin syringe,safety needle (BD SafetyGlide Insulin Syringe) USE ONCE WEEKLY TO INJECT METHOTREXATE losartan 100 mg PO QAM methotrexate sodium 15 mg (0.6 mL) subcut QWEEK 90 days multivitamin 1 tab PO DAILY pantoprazole 40 mg PO QAM turmeric 400 mg PO DAILY vedolizumab (Entyvio) 300 mg IV Q8W Do you need a note to return to daycare/school/sports/work: No HPI HPI Obstructive sleep apnea: Details: THIS 69 YEARS OLD GENTLEMAN WITH MORBID OBESITY AND OBSTRUCTIVE SLEEP APNEA IS HERE FOR FOLLOW-UP. HE IS USING BIPAP WITH PRESSURE SETTING 24/20 CM, FULLFACE MASK, VERY REGULARLY EVERY NIGHT. HE HAS NO DIFFICULTY IN USING THE CPAP, AND ACTUALLY SLEEPS VERY GOOD. HE IS RELATIVELY SEDENTARY, AND EVEN THOUGH HE TRIES TO CONTROL HIS DIET HE HAS NOT BEEN ABLE TO LOSE ANY WEIGHT, RATHER HAS PUT ON SOME WEIGHT IN THE LAST FEW MONTHS. HE DOES HAVE MULTIPLE COMORBIDITIES ESPECIALLY HYPERTENSION AND CARDIAC ISSUES. HE IS ON LASIX 80 MG A DAY AND IN SPITE OF THAT HE DOES NOT DIURESE WELL . AMLODIPINE 10 MG DAILY MAY BE CONTRIBUTING TO SOME FLUID RETENTION. DENIES ANY COUGH OR WHEEZING. [facility] Medical History Diverticulitis Elevated cholesterol Murmur COVID-19 Claustrophobia Arthritis Atrial septal defect Atrial fibrillation Gouty tophi of joint Restrictive lung disease Cervical spondylosis Epidermal cyst Essential hypertension Chronic right heart failure Crohn's disease LINDSAY on CPAP Morbid obesity Surgical History S/P LASIK surgery Hx of carpal tunnel repair History of colon resection History of excision of epidermal inclusion cyst (~03/27/21) History of esophagogastroduodenoscopy (EGD) Status post surgical atrial septal defect closure History of colonoscopy Family History Father Hx of Crohn's disease Cancer Mother Hx of type 2 diabetes mellitus Social History Are you a primary wound care nurse to a significant other at home: No Do you presently have visiting nurse or other home services: No Alcohol intake: never Comment: counts correct Patient Tobacco Use Status: Former Tobacco user Tobacco use type: Cigarette Years Smoked: 10 +/- Current occupational status: retired Current occupation: right hand dominant Review of Systems Const All systems reviewed & are unremarkable except as noted in HPI and below Eyes Reports no additional complaints ENT Reports no additional complaints Card Denies chest pain, Denies irregular heart rhythm and Denies leg edema Resp Reports as per HPI GI Reports GI cramping and Reports heartburn Reports no additional complaints Musc Reports arthralgias (especially in wrist joints) Neuro Reports no additional complaints Psych Reports no additional complaints Physical Exam Vital Signs: Last Vital Signs Pulse 51 12/18/24 09:58 BP 160/58 H 12/18/24 09:58 Pulse Ox 98 12/18/24 09:58 Oxygen Delivery Method Room Air 12/18/24 09:58 BMI result Body Mass Index 46.4 Const General: comfortable, no acute distress, alert and awake Orientation/consciousness: patient oriented x3 HEENT Head: Yes normal to inspection General nose exam: No nasal polyps present and No nasal discharge present Face and sinus: Yes sinuses nontender Mouth: oropharynx normal Throat: Yes posterior oropharynx normal Eyes General: appearance normal, both eyes and all related structures Neck Neck: Yes normal visual inspection, Yes no lymphadenopathy, Yes trachea midline and Yes no JVD Thyroid: Thyroid normal Chest Chest palpation & inspection: normal inspection of the chest, normal palpation of entire chest wall and no tenderness Resp Effort & Inspection: normal respiratory effort Auscultation: clear to auscultation bilaterally, no crackles, no wheezes and diminished lung sounds (BREATH SOUNDS ARE DIMINISHED OVER THE BASILAR AREAS.) Cardio Palpation: normal PMI Rate: regular rate Rhythm: regular rhythm Heart sounds: no gallops and no murmurs Peripheral pulses: Peripheral pulses 2+ throughout GI Palpation (GI): Soft to palpation, nontender, No hepatosplenomegaly present, no masses and Other GI palpation findings present (Midline scar Abdomen is Obese and protuberant, Lt. sided ventral hernia , ) Auscultation: normal bowel sounds Back/Spine/Pelvis Thoracic/Lumbar Spine: thoracic and lumbar spine normal to inspection Skin General skin exam: no rashes or lesions noted Neuro General: patient oriented x3 and no focal motor deficits Cranial nerves: Yes CN's II-XII intact bilaterally Extrem General: Yes normal to inspection, Yes no clubbing, cyanosis or edema and Yes no calf tenderness Psych Appearance: grossly normal and well kempt Speech and movement: Normal speech and movement present Results Reviewed Results Reviewed: COMPLIANCE REPORT FOR THE LAST 30 NIGHTS IS REVIEWED. HE HAS USED 30/30 NIGHTS., 100% AVERAGE USE IT PER NIGHT 8 HOURS 48 MINUTES WHICH IS EXCELLENT. PRESSURE SETTING 24/20 CM. THERE IS MODERATE AMOUNT OF AIR LEAK BUT HE IS NOT BOTHERED BY IT. RESIDUAL AHI 2.3 Assessment & Plan Assessment & Plan (1) Morbid obesity: Comment: IT IS A CHRONIC PROBLEM, HE IS WELL AWARE OF THIS ISSUE. FINDS IT VERY DIFFICULT TO LOSE WEIGHT. Code(s): E66.01 - Morbid (severe) obesity due to excess calories Category: Medical Plan: STRESSED THAT HE NEEDS TO WALK 1 OR 2 MILES EVERY DAY, CUT DOWN THE CALORIES INTAKE ESPECIALLY FROM CARBOHYDRATES. (2) Restrictive lung disease: Comment: PER SPIROMETRY FINDING THERE IS EVIDENCE OF MILD TO MODERATE DEGREE OF RESTRICTIVE PULMONARY DISORDER, THIS IS EXPECTED BECAUSE OF HIS MORBID OBESITY. Code(s): J98.4 - Other disorders of lung Category: Medical Plan: ADVISED TO DO DEEP BREATHING EXERCISES AT LEAST 3 TIMES A DAY (3) LINDSAY on CPAP: Comment: KNOWN CASE OF SEVERE OBSTRUCTIVE SLEEP APNEA. HE IS BEING TREATED WITH BILEVEL CPAP 24-20 AND IS VERY COMPLIANT. HIS SLEEP IS MUCH BETTER. COMPLIANCE IS EXCELLENT Code(s): G47.33 - Obstructive sleep apnea (adult) (pediatric); Z99.89 - Dependence on other enabling machines and devices Category: Medical Plan: COMMENDED FOR GOOD COMPLIANCE AND ADVISED TO KEEP ON USING THE BIPAP EVERY NIGHT Coding Level of Care Code Est Pt Level 3 (79189) Diagnoses Morbid obesity E66.01 Restrictive lung disease J98.4 LINDSAY on CPAP G47.33; Z99.89
[2024-12-18 09:58] VITALS: BP 160/58; PULSE 51; O2SAT 98; BMI 46.4
--- OUTSIDE RECORDS SUMMARY | 2024-12-18 10:10 | XMS_ITS | Clinical Summary ---
Author Organization [facility] Address [address] [place] [phone] Phone Care Team Providers Care Advertising Sales Agent Name Role Phone Garry Graves Primary Care Provider [phone] Allergies Active Allergy Reactions Criticality Noted Date Comments Tramadol Dizziness 07/11/2023 Medications VENTOLIN HFA 90 mcg/actuation inhaler TAKE 2 INHALATIONS BY MOUTH 3 TIMES DAILY NEEDED 0 9 Active amLODIPine (NORVASC) 10 MG tablet Take 10 mg by mouth daily. 0 9 Active meloxicam (MOBIC) 15 MG tablet Take 15 mg by mouth daily. 0 9 Active furosemide (LASIX) 40 MG tablet take 2 tablet by mouth once daily 0 9 Active amoxicillin (AMOXIL) 500 MG capsule take 4 capsules by mouth 1 hour prior to appointment 0 9 Active losartan (COZAAR) 100 MG tablet Take 100 mg by mouth daily. Active pantoprazole (PROTONIX) 40 MG tablet Take 40 mg by mouth daily. Active tiZANidine (ZANAFLEX) 4 MG tablet TAKE 1 TABLET BY MOUTH EVERY 6 HOURS NEEDED Diagnosis Unavailable Oral for 15 Active folic acid (FOLVITE) 1 MG tablet Take 1 tablet by mouth every morning. 4 Active ELIQUIS 5 mg tablet Take 5 mg by mouth 2 (two) times a day. Active budesonide (ENTOCORT EC) 3 mg 24 hr capsule 2 capsules Orally Once a day for 30 day(s) Active methotrexate sodium, PF, 25 mg/mL injection Inject 15 mg into the vein once a week. Active vedolizumab (ENTYVIO) 300 mg SolR injection Inject 300 mg into the vein once every 8 weeks. Active Active Problems Problem Noted Date Diagnosed Date Longstanding persistent atrial fibrillation 06/17 Assessment & Plan (07/14/2023 12:03 AM EST): No clear evidence of high degree AV block or symptomatic bradycardia currently. He is currently compliant with his blood thinners. Preop cardiovascular exam 07/14/2023 Assessment & Plan (07/14/2023 12:07 AM EST): No current compelling cardiac contraindication for planned procedure Nonsustained paroxysmal ventricular tachycardia 07/14/2023 Assessment & Plan (07/14/2023 12:06 AM EST): We had a detailed discussion with the patient with regards to symptoms. He currently is asymptomatic. Coronary angiogram did not show any evidence of obstructive CAD. In view of his significant bradycardia not a candidate for beta-blockers or CCB's or antiarrhythmic medications. We offered cardiac MRI however patient refused at this point. Echocardiogram shows normal ejection fraction without any wall motion however there is evidence of RV failure which is likely in the setting of severe TIFFANY. Encouraged the patient to be compliant with sleep apnea machine especially during the day as well. Social History Tobacco Use Types Packs/Day Years Used Date Smoking Tobacco: Never Assessed Education Answer Date Recorded Are you interested in more education? Not on shaggy e 09/10/2022 Are you concerned about learning? Not on file 09/10/2022 No 09/10/2022 No 09/10/2022 Digital Access Answer Date Recorded No 10/09/2022 No 10/09/2022 No 10/09/2022 Reliable internet access at home? Not on file 10/09/2022 Device with a working camera? Not on file Sex and Gender Information Value Date Recorded Sex Assigned at Not on file Legal Sex Male 9:40 AM EDT Gender Identity Not on file Sexual Orientation Not on file Last Filed Vital Signs Vital Sign Reading Time Taken Comments Blood Pressure 126/64 07/11/2023 10:21 AM EST Pulse 56 07/11/2023 10:21 AM EST Temperature - - Respiratory Rate - - Oxygen Saturation 97% 07/11/2023 10:21 AM EST Inhaled Oxygen Concentration - - Weight 142.9 kg (315 lb) 07/11/2023 10:21 AM EST Height 174 cm (5' 8.5 ) 07/11/2023 10:21 AM EST Body Mass Index 47.19 07/11/2023 10:21 AM EST Plan of Treatment Health Maintenance Due Date Last Done Comments CREATININE LEVEL 1957 LIPID PANEL 1957 POTASSIUM LEVEL 1957 DEPRESSION SCREENING 1969 SMOKING Hx and SMOKELESS TOBACCO SCREENING 1970 HEPATITIS C SCREENING 1975 PNEUMOCOCCAL VACCINES (50+ years) (1 of 2 - PCV) 1976 ZOSTER VACCINES (1 of 2) 1976 SCREENING FOR DIABETES 1992 COLOGUARD 2002 COLONOSCOPY 2002 COLORECTAL CANCER SCREENING 2002 FIT TEST 2002 FOBT 2002 SIGMOIDOSCOPY 2002 VIRTUAL COLONOSCOPY 2002 RSV VACCINE (1 - Risk 60-74 years 1-dose series) 2017 COVID-19 VACCINE (2 - Pfizer risk series) 08/15/2020 07/25/2020 Adult Td,Tdap Booster 01/16/2029 01/16/2019 , 08/13/2016 HEPATITIS A VACCINES Aged Out No long er eligible based on patient's age to complete this topic HIB VACCINES Aged Out No longer eligi ble based on patient's age to complete this topic MENINGOCOCCAL VACCINES (ACWY) Aged Out No longer eligible based on patient's age to complete this topic MENINGOCOCCAL VACCINES (B) Aged Out N o longer eligible based on patient's age to complete this topic Medical Devices Not on file Insurance MEDICARE PART A & [facility] & [facility] & B [facility] MEDIC[facility] PART A & B [place] & B [facility] MEDICARE [facility] A & B MEDICARE PART A & B MEDICARE PART A & B [facility] Care Teams Advertising Sales Agent Relationship Specialty Start Date End Date Garry Graves DO [email or web address] PCP - General Internal Medicine 08/02/18 Additional Source Comments The information contained in this document represents components of the legal health record. It is not the complete legal health record.[facility]
== END 2024-12-18 10:32 | disposition home or self-care (01) ==
PROVIDERS: PCP Internal Medicine; Visit Provider Internal Medicine
DX: E66.01 Morbid (severe) obesity due to excess calories (principal); J98.4 Other disorders of lung; G47.33 Obstructive sleep apnea (adult) (pediatric); Z99.89 Dependence on other enabling machines and devices
CPT/HCPCS: 99213

== ENCOUNTER → 2024-12-18 09:44 | Outpatient (BNVA) | payer MEDICARE, MEDICAID, SELFPAY | PROVIDERS: PCP Internal Medicine; Visit Provider Internal Medicine | DX: G47.33 Obstructive sleep apnea (adult) (pediatric) (principal); Z99.89 Dependence on other enabling machines and devices; J98.4 Other disorders of lung; E66.01 Morbid (severe) obesity due to excess calories; Z68.42 Body mass index [BMI] 45.0-49.9, adult; Z87.891 Personal history of nicotine dependence | CPT/HCPCS: 99212 ==

== ENCOUNTER 2025-01-01 15:38 | Outpatient (REF) | payer SELFPAY ==
--- OUTSIDE RECORDS SUMMARY | 2024-08-30 08:00 | XMS_ITS ---
Author Organization [facility] Address [address] [place] [address] Care Team Providers Care Domain Architect Name Role Phone Garry Graves MD Primary Care Provider Daisy George Unavailable [phone] Solomon Ventura [phone] Encounters Encounter Location Date Provider Diagnosis [address] [address] 08/30/2024 Solomon Vnetura Plan Of Treatment Next Appt Details Provider Name:Daisy collado, 09/12/2025 11:15:00 AM, [address] [place] [address], [address], Progress Notes * SERA Hector KDOB:[birth year] (69 yo M)Acc No.[id number]:08/30/2024 Progress Note Patient: Hector AJ Provider: Teresa Ventura DPM :1955 A ge:69 Y S ex:Male Date:08/30/2024 Address:[address] [place] [address] Pcp:Garry Graves MD Subjective: * Chief Complaints: [...] 08/30/2024 Generated for Capo raman/Davidson/Brenden on: 0 01/01/2025 04:56 PM EDT
--- OUTSIDE RECORDS SUMMARY | 2025-01-01 16:56 | XMS_ITS | Clinical Summary ---
Author Organization [facility] Address [address] [facility] [address] [place] [phone] Phone Care Team Providers Care Professor Of Voice Name Role Phone Garry Graves Primary Care Provider Allergies Active Allergy Reactions Criticality Noted Date [...] file Insurance MEDICARE PART A & [facility] & [facility] PART A & B [facility] MED[facility] PART A & B [facility] MEDICARE PART A & B [place] B [facility] MEDICARE PART A & B MEDICARE PART A & B MEDICARE PART A & B [facility] Care Teams Professor Of Voice Relationship Specialty Start Date End Date Garry Graves DO [email or web address] PCP - General Internal Medicine 08/02/18 Additional Source Comments The information contained in this document represents components of the legal health record. It is not the complete legal health record.[facility]
== END 2025-01-01 15:39 | disposition home or self-care (01) ==
LOC: HO.HAP 15:38
PROVIDERS: Visit Provider Internal Medicine
DX: Z46.1 Encounter for fitting and adjustment of hearing aid (principal); H90.3 Sensorineural hearing loss, bilateral
CPT/HCPCS: V5267

== ENCOUNTER 2025-02-12 08:18 | Outpatient (REF) | payer MEDICARE, MEDICAID, SELFPAY ==
[2025-02-12 11:34] LABS: MANUAL DIFF FLAG NO
[2025-02-12 11:42] LABS: Hematocrit 29.9 % (42.0-52.0); Hemoglobin 9.8 g/dl (14.0-18.0); Imm Gran Abs Auto 0.04 X10*3/uL (0.00-0.03); Imm Gran Pct Auto 1.0 % (0.0-0.4); Lymphocytes Absolute Auto 0.8 X10*3/uL (1.2-4.9); Mean Corpuscular HGB Conc 32.8 g/dl (31.0-36.0); Mean Corpuscular Hemoglobin 31.1 pg (27.0-33.0); Mean Corpuscular Volume 94.9 fL (80.0-98.0); NRBC Abs Auto 0.000 X10*3/uL (0.0-0.012); NRBC Pct Auto 0.0 /100WBC (0.0-0.2); Platelet Count 159 X10*3/uL (160-400); Red Blood Count 3.15 X10*6/uL (4.60-5.80); White Blood Count 4.1 X10*3/uL (4.8-10.8)
[2025-02-12 12:06] LABS: Alanine Aminotransferase 8 U/L (0-40); Albumin Level 4.4 g/dL (3.5-5.0); Alkaline Phosphatase 81 U/L (39-117); Anion Gap 14 (12-20); Aspartate Amino Transferase 23 U/L (5-37); Blood Urea Nitrogen 32 mg/dL (9-16); Calcium 9.2 mg/dL (8.4-10.2); Carbon Dioxide 25 mmol/L (22-29); Chloride 108 mmol/L (96-108); Estimated Glomerular Filt Rate 43; Potassium 4.0 mmol/L (3.3-5.1); Sodium 143 mmol/L (135-145); Total Protein 7.1 g/dL (6.5-8.0); Uric Acid 5.2 mg/dL (3.4-7.0)
[2025-02-12 12:31] LABS: HBS Num1 1.05 mIU/mL (0-7.99); HBc Num1 0.12 S/CO (0.00-0.79); HBsAGNum1 0.42 S/CO (0.00-0.99); Hepatitis A Antibody IgM 0.14 Index (0-0.79); Hepatitis B Surface Antigen Negative (Negative); ~HepC Num1 0.33 S/CO (0.00-0.79); ~Hepatitis A Antibody IgM Nonreactive (Nonreactive); ~Hepatitis B Surface Antibody NONREACTIVE (Nonreactive); ~Hepatitis C Antibody Nonreactive (Nonreactive)
[2025-02-15 00:19] LABS: TS Negative Control Passed; TS Panel A 0; TS Panel B 0; TS Positive Control Passed; TSpotTB Negative (Negative)
== END 2025-02-12 08:19 | disposition home or self-care (01) ==
LOC: HO.WFDLDS 08:18
PROVIDERS: Referring Provider Student in an Organized Health Care Education/Training Program; Visit Provider Internal Medicine Hypertension Specialist
DX: M1A.9XX1 Chronic gout, unspecified, with tophus (tophi) (principal); K63.9 Disease of intestine, unspecified; M07.60 Enteropathic arthropathies, unspecified site; Z51.81 Encounter for therapeutic drug level monitoring; Z79.899 Other long term (current) drug therapy; Z11.1 Encounter for screening for respiratory tuberculosis
CPT/HCPCS: 36415; 80053; 84550; 85025; 85652; 86140; 86481; 86704; 86706; 86709; 86803; 87340

== ENCOUNTER 2025-02-26 11:24 | Outpatient (AMB) | payer MEDICARE, MEDICAID, SELFPAY ==
--- NOTE | 2025-02-26 11:31 | MHC.OFFVIS ---
Vital Signs 02/26/25 11:39 Height 5 ft 11 in Weight 347 lb 3.649 oz BMI 48.4 BP 140/72 H Blood Pressure Location Lt brachial Position Sitting Pulse 54 Pulse Source Pulse Oximeter Pulse Oximetry (%) 96 Oxygen Delivery Method Room Air Intake Visit Reasons: Crohn's arthritis Intake Note: Patient presents for Crohn's Arthritis follow up. 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 Saw his social worker health services who was concerned about his kidney function and reduced his allopurinol to 300 his subsequent uric acid was 6.7 - Has not had any flares of his gout since the last visit - Continues to do well overall - Allopurinol increased to 450mg Today - On allopurinol 450mg daily, MTx 20mg SC weekly and folic acid 1mg daily - Rheumatologic History: Inflammatory arthritis associated with Crohn's disease Failed p.o. methotrexate. Doing well on subcu methotrexate for Crohn's failed Humira, did well on Entyvio Per Dr. Manuel: Presents for follow-up of initial testing. At last visit, patient received a prednisone taper which he states significantly helped his joint pain. He has now completed the prednisone and some of his joint pain has returned. From last visit: Patient is currently on Entyvio for his Crohns. He was previously treated with Humira however did not respond to therapy in terms of his bowel disease or his joint pain. He reports a few years of joint pain mostly located in his hands, feet, and neck. He has swelling located in his MCPs and PIPs as well as nodules by both elbows. Has stiffness in his hands and is unable to make fists. States that his feet feel like he is walking on glass. He was given a prednisone taper by his PCP which helped immensely with his pain and swelling. He was also given Sulfasalazine by Dr Taylor in GI and took it for a couple of weeks but states that it did not help his joint pain. Unable to take NSAIDs as he is on Eliquis for Afib. No family history of RA, SLE, Crohns, Psoriasis or Psoriatic Arthritis. Gout biopsy proven gouty tophi distal to both elbows. Mother had gout. Initial Uric acid level 12.9. Patient now on allopurinol 400 mg daily. Well-tolerated. Uric acid improved to 5.9 mg/dL Current Rheumatology Medication(s): Allopurinol 450 mg daily Methotrexate subcutaneous 20 mg weekly Folic acid 1 mg daily [facility] Medical History Diverticulitis Elevated cholesterol Murmur COVID-19 Claustrophobia Arthritis Atrial septal defect Atrial fibrillation Gouty tophi of joint Restrictive lung disease Cervical spondylosis Epidermal cyst Essential hypertension Chronic right heart failure Crohn's disease TIFFANY on CPAP Morbid obesity Surgical History S/P LASIK surgery Hx of carpal tunnel repair History of colon resection History of excision of epidermal inclusion cyst (~03/27/21) History of esophagogastroduodenoscopy (EGD) Status post surgical atrial septal defect closure History of colonoscopy Family History Father Hx of Crohn's disease Cancer Mother Hx of type 2 diabetes mellitus Social History Are you a primary neonatal intensive care unit nurse to a significant other at home: No Do you presently have visiting nurse or other home services: No Alcohol intake: never Comment: counts correct Patient Tobacco Use Status: Former Tobacco user Tobacco use type: Cigarette Years Smoked: 10 +/- Current occupational status: retired Current occupation: right hand dominant Review of Systems Const Details: Review of Systems Constitutional: Denies fever, chills, weight loss ENT: Denies vision changes, eye pain or eye redness, dental caries, dry mouth GI: Denies nausea, vomiting, diarrhea, abdominal pain, change in BM Pulm: Denies SOB, BYNUM, hemoptysis, wheezing Cards: Denies chest pain, palpitations Skin: Denies Raynaud's, rash, nail changes, photosensitivity, ACCOUNT SERVICES ASSOCIATE: Denies headaches, weakness, paresthesias, recurrent falls MSK: as per HPI All other systems reviewed and are unremarkable except noted above Physical Exam Exam Exam: Vital signs reviewed Physical Examination CONSTITUITIONAL Patient alert and cooperative. Well appearing and in no apparent painful distress MSK Hands Right Hand: Able to make a fist. No swelling or tenderness to palpation of the MCPs, PIPs or DIPs. Left Hand: Able to make a fist. No swelling or tenderness to palpation of the MCPs, PIPs or DIPs. Herbedens nodes noted bilaterally Wrists Right Wrist: Full ROM to flexion and extension. No swelling or TTP Left Wrist: Full ROM to flexion and extension. No swelling or TTP Elbows Right Elbow: Full ROM. No swelling or TTP. No TTP of the medial epicondyle. No TTP of the lateral epicondyle Left Elbow: Full ROM. No swelling or TTP. No TTP of the medial epicondyle. No TTP of the lateral epicondyle Tophi noted bilaterally Shoulders Right shoulder: Decrerased ROM. No swelling noted. No TTP of the AC joint. No TTP of the subacromial bursa. No TTP of the posterior shoulder Left shoulder: Decreased ROM. No swelling noted. No TTP of the AC joint. No TTP of the subacromial bursa. No TTP of the posterior shoulder Knees Right knee: No swelling noted. No TTP of the knee joint line. No TTP of pes anserine bursa Left knee: No swelling noted. No TTP of the knee joint line. No TTP of pes anserine bursa. Crepitations felt bilaterally Ankles Right ankle: Good ankle dorsiflexion and plantar flexion. No TTP of the ankle joint Left ankle: Good ankle dorsiflexion and plantar flexion. No TTP of the ankle joint Feet Right foot: Negative squeeze test Left foot: Negative squeeze test Tender points? No tenderness to palpation of the bilateral trapezius, supraspinatus, anterior costochondral junctions, bilateral suboccipital muscle insertions SKIN No rash Vital Signs: Last Vital Signs Pulse 54 02/26/25 11:39 BP 140/72 H 02/26/25 11:39 Pulse Ox 96 02/26/25 11:39 Oxygen Delivery Method Room Air 02/26/25 11:39 BMI result Body Mass Index 48.4 Results Reviewed Results Reviewed: Laboratory Tests 07/26/24 02/12/25 09:03 08:21 WBC 4.1 L RBC 3.15 L Hgb 9.8 L Hct 29.9 L Plt Count 159 L ESR 23 H Sodium 143 Potassium 4.0 Chloride 108 Carbon Dioxide 25 BUN 32 H Creatinine 1.61 H Estimated GFR 43 Uric Acid 5.2 AST 23 ALT 8 Alkaline Phosphatase 81 C-Reactive Protein 2.04 H 1.34 H Assessment & Plan Assessment & Plan (1) Arthritis associated with inflammatory bowel disease: Comment: Failed p.o. methotrexate. Doing well on subcu methotrexate for Crohn's failed Humira, did well on Entyvio Code(s): K63.9 - Disease of intestine, unspecified; M07.60 - Enteropathic arthropathies, unspecified site Category: Medical Plan: #Crohn's arthritis Patient is a 69-year-old male with Crohn's disease complicated by inflammatory arthritis here today for follow up. Currently in remission on methotrexate Plan - Methotrexate 20mg SC every week - Folic acid 1mg every day - RTC 6 months - Labs before visit: CBC, CMP, ESR, CRP (2) Gouty tophi of joint: Code(s): M1A.9XX1 - Chronic gout, unspecified, with tophus (tophi) Category: Medical Plan: #Tophaceous gout Ideally we would like his uric acid to be less than 5 but he is doing well at 5.2 Plan - Uric acid goal < 5 - Continue allopurinol 450mg daily (3) half-way methotrexate user: Code(s): Z79.631 - half-way (current) use of antimetabolite agent Category: Medical Plan: #Long-term Current Use of Methotrexate Discussed with patient the benefits and risks of methotrexate for managing their rheumatic condition Benefits include reduced pain, reduced mortality, maintenance of remission and reduction of flares Risks include oral ulcers, photosensitivity, hepatotoxicity, hematologic toxicity, pneumonitis, flu-like symptoms (especially day after administration), nodulosis, lymphomas ? Limit alcohol and avoid Bactrim ? Monitoring: ?CBC, BMP, LFTs every 3-4 months and hepatitis serologies as needed (4) Encounter for monitoring allopurinol therapy: Code(s): Z51.81 - Encounter for therapeutic drug level monitoring; Z79.899 - Other residential (current) drug therapy Plan: #Long-term Current Use of Allopurinol Risks and benefits of allopurinol discussed with patient Benefits include decreased gout flares, remission of gout and reduction of tophi Risks include allopurinol hypersensitivity syndrome which is a severe cutaneous adverse reaction associated with allopurinol use particularly in patients who are HLA B*5801 positive, increased transaminases, GI upset including diarrhea, nausea and vomiting, and other dermatologic manifestations Plan I spent 30 minutes reviewing the record and labs, taking a history, examining the patient, discussing the treatment plan, ordering diagnostic work up, and documenting in the medical record Coding Level of Care Code Est Pt Level 4 (61658) Complex EM visit Add On G2211 Diagnoses Arthritis associated with inflammatory bowel disease K63.9; M07.60 Gouty tophi of joint M1A.9XX1 superintendent terminal methotrexate user Z79.631 Encounter for monitoring allopurinol therapy Z51.81; Z79.897
[2025-02-26 11:39] VITALS: BP 140/72; PULSE 54; O2SAT 96; BMI 48.4
== END 2025-02-26 12:12 | disposition home or self-care (01) ==
LOC: HO.RHES 11:24
PROVIDERS: PCP Internal Medicine; Visit Provider Student in an Organized Health Care Education/Training Program
DX: K63.9 Disease of intestine, unspecified (principal); M07.60 Enteropathic arthropathies, unspecified site; M1A.9XX1 Chronic gout, unspecified, with tophus (tophi); Z79.631 Long term (current) use of antimetabolite agent; Z51.81 Encounter for therapeutic drug level monitoring; Z79.899 Other long term (current) drug therapy
CPT/HCPCS: 99214; G2211

== ENCOUNTER → 2025-02-26 11:24 | Outpatient (BNVA) | payer MEDICARE, MEDICAID, SELFPAY | PROVIDERS: PCP Internal Medicine; Visit Provider Student in an Organized Health Care Education/Training Program | DX: M1A.9XX1 Chronic gout, unspecified, with tophus (tophi) (principal); K63.9 Disease of intestine, unspecified; M07.60 Enteropathic arthropathies, unspecified site; Z79.631 Long term (current) use of antimetabolite agent; Z79.899 Other long term (current) drug therapy | CPT/HCPCS: 99212 ==

== ENCOUNTER 2025-03-11 10:44 | Outpatient (AMB) | payer MEDICARE, MEDICAID, SELFPAY ==
--- OUTSIDE RECORDS SUMMARY | 2024-08-30 07:15 | XMS_ITS ---
Author Organization [facility] Address [address] [place] [address] Care Team Providers Care Landscape Foreman Name Role Phone Garry Graves MD Primary Care Provider Daisy George [phone] Encounters Encounter Location Date Provider Diagnosis [address] [address] 08/30/2024 Daisy Silva Plan Of Treatment Next Appt Details Provider Name:Daisy collado, 09/12/2025 11:15:00 AM, [address] [place] [address], [address], Progress Notes * Hector COLON KDOB:[birth year] (69 yo M)Acc No.[id number]:08/30/2024 Progress Note Patient: Hector AJ Provider: Ariadne Silva DPM :1955 A ge:69 Y S ex:Male Date:08/30/2024 Address:[address] [place] [address] Pcp:Garry Graves MD Subjective: * Chief Complaints: * * Medical History: Objective: * Vitals: Assessment: Plan: * Treatment: * Images: * The named appointment provid er may or may not be the originator of this progress note, and it is not deemed complete until electronically signed by the appointment provider. Sign off status: Pending * Provider: Ariadne Silva DPM Date: 0 08/30/2024 Generated for Capo raman/Davidson/Brenden on: 1 01:10 PM EDT
--- OUTSIDE RECORDS SUMMARY | 2024-08-30 08:00 | XMS_ITS ---
Author Organization [facility] Address [address] [place] [address] Care Team Providers Care Sample Wrapper Name Role Phone Garry Graves MD Primary Care Provider Daisy George Unavailable [phone] Solomon Arias Unavailable [phone] Encounters Encounter Location Date Provider Diagnosis [address] [address] 08/30/2024 Solomon Arias Plan Of Treatment Next Appt Details Provider Name:Daisy collado, 09/12/2025 11:15:00 AM, [address] [place] [address], [address], Progress Notes * SERAHector Remy KDOB:[birth year] (69 yo M)Acc No.[id number]:08/30/2024 Progress Note Patient: Hector AJ Provider: Teresa Ventura DPM :1955 A ge:69 Y S ex:Male Date:08/30/2024 Address[address] [place] [address] Pcp:Garry Graves MD Subjective: * Chief Complaints: * * Medical History: Objective: * Vitals: Assessment: Plan: * Treatment: * Images: * The named appointment provid er may or may not be the originator of this progress note, and it is not deemed complete until electronically signed by the appointment provider. Sign off status: Pending * Provider: Teresa Ventura DPM Date: 0 08/30/2024 Generated for Capo raman/Davidson/Brenden on: 01:10 PM EDT
[2025-03-11 10:46] VITALS: BP 130/48; PULSE 70; O2SAT 95; BMI 46.4
--- NOTE | 2025-03-11 10:46 | HO.NEPHOV ---
Vital Signs 03/11/25 10:46 Height 5 ft 11 in Weight 333 lb BMI 46.4 BP 130/48 L Blood Pressure Location Rt brachial Position Sitting Pulse 70 Pulse Source Pulse Oximeter Pulse Oximetry (%) 95 Oxygen Delivery Method Room Air Intake Visit Reasons: Oct follow-up w/labs, confirmed Hotel Registration Clerk Required: No Accompanied by: Spouse Allergies tramadol Allergy (Mild, Verified 03/11/25 10:48) Dizziness meloxicam Allergy (Verified 03/11/25 10:48) Diarrhea Medication List - Last Reconciled 03/11/25 by Olegario Diggs MD acetaminophen (Acetaminophen Extra Strength) 500 mg PO QNOON acetaminophen ER (Tylenol Arthritis Pain) 1,300 mg PO BID allopurinol 450 mg (1.5 x 300 mg) PO DAILY 90 days amlodipine 10 mg PO QAM apixaban (Eliquis) 5 mg PO BID ferrous sulfate 324 mg PO DAILY folic acid 1 mg PO DAILY furosemide 80 mg PO QAM insulin syringe,safety needle (BD SafetyGlide Insulin Syringe) USE ONCE WEEKLY TO INJECT METHOTREXATE losartan 100 mg PO QAM methotrexate sodium 15 mg (0.6 mL) subcut QWEEK 90 days multivitamin 1 tab PO DAILY pantoprazole 40 mg PO QAM turmeric 400 mg PO DAILY vedolizumab (Entyvio) 300 mg IV Q8W HPI Comments Details: Sheyla is a pleasant 68-year-old man with a history of longstanding hypertension and Crohn's disease who was found to have recent elevation serum creatinine. Back in 2022 serum creatinine was around 1.05-1.17 mg/dL. Since June of 2023 there has been a gradual increase in serum creatinine and the recent creatinine was 1.55 as of 04/10/2024. He is on Lasix 80 mg once a day. There has been no recent change in antihypertensive medications. He has a history of Crohn's disease. 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 He is currently on methotrexate. History of gout and he is on allopurinol. History of restrictive lung disease History of obstructive sleep apnea on CPAP. History of moderate right heart failure by echocardiogram Does not take any NSAIDs or other nephrotoxic agents. 11/12/24 The patient is a 62-year-old male presenting with anemia. He underwent a colonoscopy and upper endoscopy due to anemia, during which polyps were removed and found to be benign. Further investigations did not identify any bleeding source. The patient experienced an asthma exacerbation due to environmental changes, which was treated with an inhaler, and his symptoms have since resolved. He is currently on iron supplements and plans to have comprehensive blood tests next month, including kidney function tests. 03/11/25 - The patient is a 69-year-old male presenting with follow-up for coronary artery disease, Crohn's disease, and hypertension management. - Coronary artery disease: No new symptoms reported. - Crohn's disease: Long-standing history, stable condition. - Hypertension: Stable, no medication changes. - Anemia: Hemoglobin decreased to 9.8 g/dL, fluctuating levels noted. [facility] Medical History Diverticulitis Elevated cholesterol Murmur COVID-19 Claustrophobia Arthritis Atrial septal defect Atrial fibrillation Gouty tophi of joint Restrictive lung disease Cervical spondylosis Epidermal cyst Essential hypertension Chronic right heart failure Crohn's disease TIFFANY on CPAP Morbid obesity Surgical History S/P LASIK surgery Hx of carpal tunnel repair History of colon resection History of excision of epidermal inclusion cyst (~03/27/21) History of esophagogastroduodenoscopy (EGD) Status post surgical atrial septal defect closure History of colonoscopy Family History Father Hx of Crohn's disease Cancer Mother Hx of type 2 diabetes mellitus Social History Are you a primary home care companion to a significant other at home: No Do you presently have visiting nurse or other home services: No Alcohol intake: never Comment: counts correct Patient Tobacco Use Status: Former Tobacco user Tobacco use type: Cigarette Years Smoked: 10 +/- Current occupational status: retired Current occupation: right hand dominant Physical Exam Vital Signs: Last Vital Signs Pulse 70 03/11/25 10:46 BP 130/48 L 03/11/25 10:46 Pulse Ox 95 03/11/25 10:46 Oxygen Delivery Method Room Air 03/11/25 10:46 BMI result Body Mass Index 46.4 Comfortable Neck supple no JVD. Lungs entry equal no rales. Heart S1-S2 heard no gallop or rub. Abdomen soft nontender. Neuro alert awake oriented. No asterixis. Extremities no edema. Results Reviewed Nephrology Results: Hgb, (14.0-18.0) 9.8 g/dl L 02/12/25 WBC, (4.8-10.8) 4.1 X10*3/uL L 02/12/25 Plt Count, (160-400) 159 X10*3/uL L 02/12/25 Sodium, (135-145) 143 mmol/L 02/12/25 Potassium, (3.3-5.1) 4.0 mmol/L 02/12/25 Chloride, (96-108) 108 mmol/L 02/12/25 Carbon Dioxide, (22-29) 25 mmol/L 02/12/25 BUN, (9-16) 32 mg/dL H 02/12/25 Creatinine, (0.5-1.4) 1.61 mg/dL H 02/12/25 Calcium, (8.4-10.2) 9.2 mg/dL 02/12/25 Renal US 05/19/24 Assessment & Plan Assessment & Plan (1) CKD (chronic kidney disease): Code(s): N18.9 - Chronic kidney disease, unspecified Category: Medical Qualifiers: Chronic kidney disease stage: stage 3 (moderate) Chronic kidney disease stage 3 subtype: stage 3a (GFR 45-59) Qualified Code(s): N18.31 - Chronic kidney disease, stage 3a Plan 68-year-old man with chronic kidney disease and superimposed JOSE GUADALUPE in the setting of longstanding hypertension, Crohn's disease, obesity. Obstructive sleep apnea and right heart failure. He has CKD stage 3. Mild bump in creatinine No evidence of obstruction based on ultrasonogram. 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 The bump in creatinine he has not occurred until 2023. He is on high dose of diuretics. Clinically appears euvolemic. At present I have we will continue the current dose of diuretics. Encouraged to stay on low-sodium diet. Continue to avoid nephrotoxic agents including NSAIDs. Anemia- Monitor hemoglobin levels, follow-up with auto garage mechanic for potential methotrexate adjustment. Today no changes were made. Continue to monitor renal function closely and continue to avoid nephrotoxic agents. Orders: Orders Basic Metabolic Panel 3 Months N18.31 - Chronic kidney disease, stage 3a Coding Level of Care Code Est Pt Level 4 (43068) Diagnoses Stage 3a chronic kidney disease N18.31 Chronic kidney disease stage: stage 3 (moderate) Chronic kidney disease stage 3 subtype: stage 3a (GFR 45-59)
--- OUTSIDE RECORDS SUMMARY | 2025-03-11 13:11 | XMS_ITS | Patient Health Record ---
Author Organization [facility] rasheed Sadler Address [address] [place] [address] Care Team Providers Care Lift Driver Name Role Phone Garry Graves MD Primary Care Provider Daisy George Unavailable [phone] Solomon Arias Unavailable [phone] Allergies Allergen (clinical drug ingredient) Drug/Non Drug Allergy documented on EMR Reaction Allergy Type Onset Date Status tramadol Tramadol Dizzy Drug Allergy Active Reason For Referral No Information Medications Medication SIG (Take, Route, Frequency, Duration) Notes Start Date End Date Status Allopurinol 100 MG as directed Orally 2 daily morning Active Pantoprazole Sodium 40 MG 1 tablet Orally Once a day; Duration: 30 day(s) Active Orthopedic Extra Depth Shoes With Custom Heat Molded Multidensity Innersoles as directed Wear Daily; Duration: as needed Active Methotrexate Active amLODIPine Besylate 10 MG Orally Once a day Active Tylenol PRN Active Turmeric Active tiZANidine HCl 4 MG TAKE 1 TABLET BY MOUTH EVERY 6 HOURS NEEDED Diagnosis Unavailable Oral; Duration: 15 Not-Taking Budesonide 3 MG 2 capsules Orally Once a day; Duration: 30 day(s) Not-Taking Mens 50+ Multi Vitamin/Min Active Losartan Potassium 100 MG 1 tablet Orally Once a day; Duration: 90 days Active Aleve Not-Taking iron Active Folic Acid 1 MG 1 tablet Orally Once a day Active Vitamin D Active Eliquis 5 MG Orally twice daily Active Vedolizumab 300 MG as directed Intravenous Every 8 weeks Active Humira Pen Active zzzASO Ankle/Foot Stabilizing AFO . As directed Wear Daily; Duration: as needed 07/17/2015 Not-Taking Furosemide 40 MG 2 tablet Orally Once a day Active Custom Orthotics as directed 09/29/2023 Active Immunizations Vaccine Route Administration Date Status Comme nts Influenza Unknown 12/30/2020 Administered Pneumococcal Unknown 02/11/2020 Administered COVID-19 Pfizer BioNTech Vaccine Unknown 12/30/2020 Administered 1st 07/25/2020 2nd 08/16/2020 Social History Tobacco Use: Social History Observation [...] primary osteoarthritis of the ankle and/or foot (428524191) Primary osteoarthritis, left ankle and foot (M19.072) Active confirmed Problem Plantar fascial fibromatosis (03152347) Plantar 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) Active confirmed Problem Acquired hammer toe of right foot (8581888675071318 ) Other hammer toe(s) (acquired), right foot (M20.41) Active confirmed Problem Acquired hammer toe of left foot (8710627066863515 ) Other hammer toe(s) (acquired), left foot (M20.42) Active confirmed Problem Osteoarthritis of midtarsal joint of left foot (4939391052198475 ) Osteoarthritis of midtarsal joint of left foot (M19.072) Active confirmed Problem Osteoarthritis of midtarsal joint of right foot (2186090210484553 ) 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 Vital Signs Blood pressure diastolic 70 mm Hg 09/10/2024 Height 5 ft 11 in in 09/10/2024 Blood pressure systolic 130 mm Hg 09/10/2024 Weight 327 lbs 09/10/2024 BMI 45.6 kg/m2 09/10/2024 Encounters Encounter Location Date Provider Diagnosis [facility] [place] [place] [address] 09/10/2024 Daisy Silva Pain in left foot [...] Provider Name:Daisy Bartlett tobias, 09/12/2025 11:15:00 AM, [address] [place] [address], [phone], Insurance Providers Payer Name Payer Address Payer Phone Subscriber Number Group Number Insured Name Patient Relationship to Insured Coverage Start Date Coverage End Date Medicare National [employer] [address] [place] [address] [id number] Hector Colon Self - patient is the insured Medical (General) History Medical History History ICD Code transfusions diverticulosis chicken pox back, hip, knee pain chron's Surgical History Surgery Date(Month/Year) colon/intestinal surgery heart surgery unspecified kymberly
--- OUTSIDE RECORDS SUMMARY | 2025-03-11 13:11 | XMS_ITS | Clinical Summary ---
Author Organization [facility] Address [address] [place] [id number] Phone Care Team Providers Care Key Worker Name Role Phone Garry Graves Primary Care Provider [phone] Allergies Active Allergy Reactions Criticality Noted Date [...] COLONOSCOPY 2002 RSV VACCINE (1 - Risk 50-74 years 1-dose series) 2007 COVID-19 VACCINE (2 - Pfizer risk series) 08/15/2020 07/25/2020 INFLUENZA VACCINE (#1) 2024 Adult Td,Tdap Booster 01/16/2029 01/16/2019 , 08/13/2016 [...] file Insurance MEDICARE PART A & B HEALTH [facility] & [facility] MEDIC[facility] PART A & B [facility] MEDICARE PART A & B [id number] [place] [address] MEDICARE PART A & B [facility] B Member Subscriber Plan / Payer (Ef fective 2017-Present) Name:Hector Colon Member ID:[id number] Relation to Subscriber:Self Name:Hector Colon Subscriber ID:[id number] Payer ID:[id number] Group ID:Not on file Type:Medicare Address: [address] [place] [phone] [facility] MEDICARE PART A & B [facility] MEDICARE PART A & [place] [facility] [place] [address] Care Teams Key Worker Relationship Specialty Start Date End Date Garry Graves DO [email or web address] PCP - General Internal Medicine 08/02/18 Additional Source Comments The information contained in this document represents components of the legal health record. It is not the complete legal health record.[facility]
== END 2025-03-11 14:13 | disposition home or self-care (01) ==
LOC: HO.HKA 10:45
PROVIDERS: PCP Internal Medicine; Visit Provider Internal Medicine Hypertension Specialist
DX: N18.31 Chronic kidney disease, stage 3a (principal)
CPT/HCPCS: 99214

== ENCOUNTER → 2025-03-11 10:44 | Outpatient (BNVA) | payer MEDICARE, MEDICAID, SELFPAY | PROVIDERS: PCP Internal Medicine; Visit Provider Internal Medicine Hypertension Specialist | DX: I13.0 Hypertensive heart and chronic kidney disease with heart failure and stage 1 through stage 4 chronic kidney disease, or unspecified chronic kidney disease (principal); N18.31 Chronic kidney disease, stage 3a; I50.810 Right heart failure, unspecified; Z79.01 Long term (current) use of anticoagulants; Z87.891 Personal history of nicotine dependence; K50.90 Crohn's disease, unspecified, without complications; D64.9 Anemia, unspecified; E66.9 Obesity, unspecified; Z68.42 Body mass index [BMI] 45.0-49.9, adult | CPT/HCPCS: 99212 ==